=== PATIENT | female | born 1940 | race Caucasian/White ===

== ENCOUNTER 2017-01-14 17:52 | Inpatient (IN) ==
[2017-01-14 19:03] LABS: Basophils % 0.5 %; Eosinophils # 0.1 K/mcL (0.0-0.6); Eosinophils % 1.1 %; Hematocrit 30.6 % (35.3-44.9); Hemoglobin 10.6 g/dL (11.5-15.4); Immature Granulocytes % 0.2 % (0-4); Immature Platelets 3.8 % (1.1-6.1); Lymphocytes # 0.8 K/mcL (0.6-4.6); Lymphocytes % 12.3 %; Mean Corpuscular HGB Conc 34.6 g/dL (31.6-35.5); Mean Corpuscular Hemoglobin 32.3 pg (28.0-33.3); Mean Corpuscular Volume 93.3 fL (83.0-100.0); Mean Platelet Volume 9.7 fL (9.4-12.4); Monocytes # 0.6 K/mcL (0.0-1.3); Monocytes % 8.8 %; Neutrophils # 4.9 K/mcL (1.6-8.9); Platelet Count 166 K/mcL (140-400); Red Blood Count 3.28 M/mcL (3.82-4.97); Red Cell Distribution Width 14.3 % (11.5-14.5); Segmented Neutrophils % 77.1 %
[2017-01-14 19:07] LABS: Prothrombin Time 10.4 Seconds (9.4-12.1)
[2017-01-14 19:10] LABS: Activated Partial Thrombo Time 27.7 Seconds (26.0-36.0)
[2017-01-14 19:14] LABS: Calcium 10.2 mg/dL (8.6-10.8); Potassium 5.1 mEq/L (3.5-4.5)
--- NOTE | 2017-01-14 19:20 | Emergency Department Note ---
Disposition Clinical Impression: Community acquired pneumonia, Acute respiratory distress, ESRD on dialysis Congestive heart failure Qualifiers: Congestive heart failure type: unspecified congestive heart failure type Congestive heart failure chronicity: unspecified congestive heart failure chronicity Qualified Code(s): I50.9 - Heart failure, unspecified Disposition: Admitted As Inpatient Condition: Serious Referrals: Vladimir Chaidez MD [Primary Care Provider] - Forms: ED Satisfaction Letter Time of Disposition: 20:29 SOB HPI - General Chief Complaint: ED Shortness of Breath/Dyspnea Stated Complaint: LAKISHA x 6 days Time Seen by Provider: 01/14/17 18:28 Source: patient, family Mode of arrival: ambulatory Limitations: no limitations Nursing Notes Reviewed: Yes Vital Signs Reviewed: Yes - History of Present Illness Ms. Carmona is a 76 year old female that present for shortness of breath x 6 days. She notes increased cough and sputum production. She notes shortness of breath that is worse with laying down and exertion, better when sitting up. She states lack of sleep secondary to cough and difficulty breathing. She notes clear or yellow sputum production, varying in amount. Denies fever, nausea, vomiting, diarrhea. Patient reports history of nephrectomy and ESRD resquiring dialysis (MWF, seen by Dr. Gilbert). Patient is scheduled to see Dr. Garcia in the near future for concerns of CHF. Bilateral lower extremity swelling, which patient states is chronic. Patient does report history of DVT in left leg approx 5 years ago. - Related Data Home Medications Medication Instructions Recorded Confirmed Albuterol Sulfate [Ventolin Hfa] 2 puff IH Q4H PRN 10/12/16 10/12/16 Allopurinol [Zyloprim] 100 mg PO DAILY 10/12/16 10/12/16 Amlodipine [Norvasc] 5 mg PO DAILY 10/12/16 10/12/16 Aspirin 81 mg PO DAILY 10/12/16 10/12/16 Atorvastatin [Lipitor] 40 mg PO HS 10/12/16 10/12/16 Budesonide/Formoterol 160/4.5 2 puff IH BIDR 10/12/16 10/12/16 [Symbicort 160/4.5] Calcium Acetate [Phos-LO] 1,334 mg PO TIDWM 10/12/16 10/12/16 Cholecalciferol (Vitamin D3) 2,000 unit PO DAILY 10/12/16 10/12/16 [Vitamin D] Furosemide [Lasix] 20 mg PO QPM 10/12/16 10/12/16 Furosemide [Lasix] 40 mg PO QAM 10/12/16 10/12/16 Levothyroxine Sodium [Levo-T] 75 mcg PO DAILY 10/12/16 10/12/16 Lisinopril [Zestril] 10 mg PO BID 10/12/16 10/12/16 Metoprolol XL (24 HR) Succ [Toprol 25 mg PO BID 10/12/16 10/12/16 XL] Pregabalin [Lyrica] 50 mg PO BID 10/12/16 10/12/16 TraZODone 50 - 100 mg PO HS PRN 10/12/16 10/12/16 Allergies Allergy/AdvReac Type Severity Reaction Status Date / Time codeine AdvReac Rash Verified 01/14/17 18:20 gabapentin AdvReac Itching Verified 01/14/17 18:20 All systems ED: reviewed and negative except as stated. Constitutional: Denies: fever, chills Eyes: Denies: vision change ENT ED: Denies: hearing loss Cardiovascular: Denies: chest pain Respiratory: Reports: cough, dyspnea, sputum production. Denies: hemoptysis Gastrointestinal: Denies: abdominal pain, nausea, vomiting, diarrhea Genitourinary: Reports: other (oliguria) Musculoskeletal: Denies: back pain Integumentary: Denies: rash Neurological: Denies: weakness, numbness, confusion Psychiatric: Denies: anxiety Endocrine: Reports: fatigue Past Medical History - Past Medical History Attestation: Yes The following information was validated with the patient. Source: patient, obtained from family Medical history: Reports: asthma, COPD, DVT, dialysis, hyperlipidemia, hypertension, renal disease Surgical history: Reports: orthopedic, other, other Psychiatric history: Reports: no psych history - Social History Smoking Status: Never smoker Smokeless Tobacco Status: No Alcohol use: Reports: none Drug use: Reports: none Physical Exam - General Limitations: no limitations General appearance: alert, in no apparent distress - Head Head exam: atraumatic, normocephalic - Eye Eye exam: Present: normal appearance, EOMI - ENT ENT exam: normal exam, mucous membranes moist - Neck Neck exam: Present: normal inspection, full ROM, trachea midline - Chest Chest inspection: Present: normal inspection, symmetric chest wall rise. Absent : tenderness - Respiratory Respiratory exam: Present: normal lung sounds bilaterally, other (rhonchi bilaterally) - Cardiovascular Cardiovascular exam: Present: regular rate, +S1, +S2. Absent: systolic murmur, diastolic murmur - Abdominal Exam Abdominal exam: Present: soft, Non-Tender. Absent: tenderness, distention, guarding, rebound, rigidity - Extremities Exam Extremities exam: Present: other (edema noted bilaterally R>L, no pain on palpation.). Absent: tenderness, calf tenderness - Neurological Exam Neurological exam: Present: alert, oriented X3 - Psychiatric Psychiatric exam: Present: normal affect, normal mood - Skin Skin exam: Present: warm, dry, intact Course Vital Signs Temperature 98.1 F 01/14/17 18:15 Pulse Rate 83 01/14/17 18:15 Respiratory Rate 22 01/14/17 18:15 Blood Pressure 164/84 01/14/17 18:15 O2 Sat by Pulse Oximetry 87 01/14/17 18:15 Temperature 98.1 F 01/14/17 18:15 Pulse Rate 76 01/14/17 19:50 Respiratory Rate 20 01/14/17 19:50 Blood Pressure 169/90 01/14/17 19:50 O2 Sat by Pulse Oximetry 90 01/14/17 19:50 Oxygen Delivery Oxygen Delivery Nasal Cannula Shortness of Breath/Dyspnea - [facility] Narrative Medical decision making narrative: Patient presents an acute restaurant distressful hypoxia requiring 2 L of oxygen. This is concerning as patient reports no use of home oxygen. Chest x- ray reveals cardiomegaly and infiltrate suggestive pneumonia. Further concern as patient frequently in a healthcare setting due to dialysis 3 days a week. Without oxygen patients saturation drops into the 70s. Will discuss with hospitalist as patient will admission for IV antibiotic treatment and supplemental oxygen. - Differential Diagnosis Likely: acute exacerbation of chronic obstructive airways disease, congestive heart failure, pneumonia - Medical Records Medical records reviewed: Yes I reviewed the patient's medical records. - Lab Data Lab results reviewed: Yes I reviewed the patient's lab results. Result diagrams: 01/14/17 18:56 01/14/17 18:56 Lab Results 01/14/17 01/14/17 01/14/17 Range/Units 18:56 18:56 18:56 WBC 6.3 (4.3-11.1) K/mcL RBC 3.28 L (3.82-4.97) M/mcL Hgb 10.6 L (11.5-15.4) g/dL Hct 30.6 L (35.3-44.9) % MCV 93.3 (83.0-100.0) fL MCH 32.3 (28.0-33.3) pg MCHC 34.6 (31.6-35.5) g/dL RDW 14.3 (11.5-14.5) % Plt Count 166 (140-400) K/mcL MPV 9.7 (9.4-12.4) fL Immature Gran % 0.2 (0-4) % Seg Neutrophils % 77.1 % Lymphocytes % 12.3 % Monocytes % 8.8 % Eosinophils % 1.1 % Basophils % 0.5 % Neutrophils # 4.9 (1.6-8.9) K/mcL Lymphocytes # 0.8 (0.6-4.6) K/mcL Monocytes # 0.6 (0.0-1.3) K/mcL Eosinophils # 0.1 (0.0-0.6) K/mcL Basophils # 0.0 (0.0-0.2) K/mcL Immature Plt Fraction 3.8 (1.1-6.1) % PT 10.4 (9.4-12.1) Seconds INR 1.0 APTT 27.7 (26.0-36.0) Seconds Sodium 138 (136-145) mEq/L Potassium 5.1 H (3.5-4.5) mEq/L Chloride 100 (98-109) mEq/L Carbon Dioxide 25 (19-29) mEq/L BUN 18 (7-20) mg/dL Creatinine 3.84 H (0.57-1.11) mg/dL Est GFR ( Amer) 14 L (> 60) Est GFR (Non-Af Amer) 11 L (> 60) BUN/Creatinine Ratio 5 L (6-26) Glucose 91 (70-99) mg/dL Calculated Osmolality 287 (280-300) Calcium 10.2 (8.6-10.8) mg/dL Troponin I (0-0.03) ng/mL B-Natriuretic Peptide (0-100) pg/mL 01/14/17 01/14/17 Range/Units 18:56 18:56 WBC (4.3-11.1) K/mcL RBC (3.82-4.97) M/mcL Hgb (11.5-15.4) g/dL Hct (35.3-44.9) % MCV (83.0-100.0) fL MCH (28.0-33.3) pg MCHC (31.6-35.5) g/dL RDW (11.5-14.5) % Plt Count (140-400) K/mcL MPV (9.4-12.4) fL Immature Gran % (0-4) % Seg Neutrophils % % Lymphocytes % % Monocytes % % Eosinophils % % Basophils % % Neutrophils # (1.6-8.9) K/mcL Lymphocytes # (0.6-4.6) K/mcL Monocytes # (0.0-1.3) K/mcL Eosinophils # (0.0-0.6) K/mcL Basophils # (0.0-0.2) K/mcL Immature Plt Fraction (1.1-6.1) % PT (9.4-12.1) Seconds INR APTT (26.0-36.0) Seconds Sodium (136-145) mEq/L Potassium (3.5-4.5) mEq/L Chloride (98-109) mEq/L Carbon Dioxide (19-29) mEq/L BUN (7-20) mg/dL Creatinine (0.57-1.11) mg/dL Est GFR ( Amer) (> 60) Est GFR (Non-Af Amer) (> 60) BUN/Creatinine Ratio (6-26) Glucose (70-99) mg/dL Calculated Osmolality (280-300) Calcium (8.6-10.8) mg/dL Troponin I 0.02 (0-0.03) ng/mL B-Natriuretic Peptide 1464 H (0-100) pg/mL - Radiology Data Radiology results reviewed: Yes I reviewed the patient's radiology results. Chest X-Ray 01/14/17 18:23 IMPRESSION: Cardiomegaly with left lower lobe atelectasis or infiltrate. D/ / 01/14/2017 19:03:09 Kevyn Jackson MD / carla Interpreting Provider: Kevyn Jackson MD - EKG Data EKG attestation: Yes I reviewed and interpreted this EKG. EKG shows normal: Reports: sinus rhythm Rate: Reports: tachycardia [place]/QRS: Reports: left axis deviation Heart block present: Reports: 1st Degree When compared to previous EKG there are: previous EKG unavailable
--- NOTE | 2017-01-14 19:47 | Emergency Department Note ---
START Narrative - START START: I examined this patient and my medical decision-making was reviewed with the TIMERS INSPECTOR/PA/Advanced Practice Nurse/Resident Physician. I agree with the documented findings, disposition and treatment plan as described except to the extent set forth below. The patient's does have a cough productive of yellow sputum but no hemoptysis. Does have bilateral lower extremity swelling slightly worse on the right she states this is chronic for her. She does have end-stage renal disease and did have dialysis today. Minimally high potassium level. I do not see EKG findings of hyperkalemia. She does have EKG showed normal sinus rhythm with a rate of 81 and does have some nonspecific ST changes. The patient does have what appears to be an infiltrate on her chest x-ray and she will be she defer healthcare associated pneumonia with Zosyn and vancomycin and admitted to the hospital. 1947
[2017-01-14] MEDS ORDERED: Vancomycin 1,000 MG in D5% in Water 250 ML IVPB ONE ×2 (19:56→20:26)
[2017-01-14] MEDS ORDERED: Piperacillin/Tazobactam 4.5 GM in D5% in Water (Mini-Bag+) 100 ML IVPB ONE (19:56)
[2017-01-14] MEDS ORDERED: Naloxone 0.4 MG/ML INJ IVP PRN (23:15)
[2017-01-14] MEDS ORDERED: Albuterol 2.5 MG/3 ML NEBULIZER IH PRN (23:22)
--- NOTE | 2017-01-14 23:50 | Internal Med History&Physical ---
Date of Encounter: 01/15/17 Time of Encounter: 23:42 Assessment and Plan (1) Community acquired pneumonia Current visit: Yes Status: Acute 1 Patient has been experiencing a cough with brown sputum production increasing shortness of breath requiring oxygen orthopnea. Chest x-ray suggestive of pneumonia and leukocytosis. We will give Levaquin 2 obtain sputum culture 3 oxygen titrating maintaining SPO2 92% 4 bronchodilators (2) Acute respiratory distress Current visit: Yes Status: Acute 1 patient presented hypoxic with saturations in the 80s to 70s on room air. Improved with oxygen and will continue to titrate to maintain SPO2 greater than 92% 2 bronchodilators (3) COPD (chronic obstructive pulmonary disease) Current visit: Yes Status: Chronic 1 has history of COPD -no wheezing at this time does not appear to be exacerbation-we will continue oxygen titrated to maintain spo2 92% 2 bronchodilators Qualifiers: COPD type: unspecified COPD Qualified Code(s): J44.9 - Chronic obstructive pulmonary disease, unspecified (4) ESRD on dialysis Current visit: Yes Status: Acute 1 patient is on dialysis Tuesday she received dialysis today-we will consult nephrology for dialysis 2 renal diet 3 monitor intake and output daily weights 4 avoid nephrotoxins 5 really dosing of antibiotics (5) HTN (hypertension) Current visit: Yes Status: Acute 1 present to control we will continue with home medications goals maintain systolic less than 140 Qualifiers: Hypertension type: essential hypertension Qualified Code(s): I10 - Essential (primary) hypertension (6) DVT prophylaxis Current visit: Yes Status: Acute 1 heparin subcutaneous Internal Medicine - H&P: HPI Chief complaint: SOB Admitted From: Emergency Dept Plans for Post Hospital Care: Home History of present illness: Ms. Carmona is a 76 year old female past medical history of hypertension status post nephrectomy end-stage renal disease on dialysis Tuesday hypercholesterolemia COPD DVT left leg 5 years ago. Patient receiving increasing shortness breath or the past 6 days. Sugars of breath is worse upon exertion and when she is lying down. She has not been able to sleep at night. She also has increased cough with sputum production-brown sputum production. She denies any recent sick contacts fevers chills nausea vomiting weight gain of weight loss or diarrhea. She has chronic lower extremity swelling. Last echo was 12/16/16 EF of 60% mild diastolic dysfunction. She is scheduled to see Drs. Alonzo in the near future for concerns of CHF. Patient presented to the ER above complaints. She was in respiratory distress and hypoxia S. She was in the 80s requiring 2 L of oxygen which did improve her saturations to the 90s. She does not use home oxygen. Chest x-ray revealed cardiomegaly with infiltrates suggestive of pneumonia. Oxygen was removed to patient's saturations would drop into the 70s. Lab work did not reveal any leukocytosis potassium is 5.1 creatinine 3.8. BNP 1464 troponin 0.0 to. She was given IV antibiotics and has been admitted for further workup and evaluation. Presently patient sitting signed bed does appear to be in any respiratory distress. She denies any shortness breath or chest pain at this time mental sounds are clear diminished in the bases. She has a moist cough. Heart sounds S1 and S2 with no rubs gallops murmurs or clicks noted. Presently she is hemodynamically stable on 2 L nasal cannula. I reviewed this case with Dr. Jimenez who agrees with plan Past Med Surg Social Fam HX - Past Medical History Medical history: asthma, COPD, DVT, dialysis, hyperlipidemia, hypertension, renal disease Psychiatric history: no psych history - Past Surgical History Surgical History: other - Social History Smoking Status: Former smoker Smokeless Tobacco Status: No Alcohol use: none Drug use: none - Family History Mother Living Status: Age at : 70 Cause of : Colon cancer Hx Family Cardiac Disorders: No Hx Family Respiratory Disorders: No Hx Family Cancer: Yes (Colon) Hx Family GI Disorders: No Hx Family Genitourinary Disorders: No Hx Family Endocrine Disorder: Yes (Borderline DM) Hx Family Musculoskeletal Disorders: No Hx Family Neuromuscular Disorders: No Hx Family Neurologic Disorders: No Hx Family HEENT Disorders: No Hx Family Autoimmune Disorders: No Hx Family Reproductive Disorders: No Hx Family Psychosocial Disorders: No Hx Family Medical Disorders: No Internal Medicine - H&P: Meds Albuterol Sulfate [Ventolin Hfa] 2 puff IH Q4H PRN 10/12/16 [History] Allopurinol [Zyloprim] 100 mg PO DAILY 10/12/16 [History] Amlodipine [Norvasc] 5 mg PO 1-2XD 10/12/16 [History] Aspirin 81 mg PO DAILY 10/12/16 [History] Atorvastatin [Lipitor] 40 mg PO HS 10/12/16 [History] Budesonide/Formoterol 160/4.5 [Symbicort 160/4.5] 2 puff IH BIDR 10/12/16 [ History] Calcium Acetate [Phos-LO] 1,334 mg PO TIDWM 10/12/16 [History] Cholecalciferol (Vitamin D3) [Vitamin D] 2,000 unit PO DAILY 10/12/16 [History] Furosemide [Lasix] 20 mg PO QPM 10/12/16 [History] Furosemide [Lasix] 40 mg PO QAM 10/12/16 [History] Pregabalin [Lyrica] 50 mg PO BID 10/12/16 [History] TraZODone 50 - 100 mg PO HS PRN 10/12/16 [History] Ipratropium Hannacroix 2 spray NS BID 01/14/17 [History] Levothyroxine [Synthroid] 25 mcg PO DAILY 01/14/17 [History] Losartan Potassium [Cozaar] 50 mg PO DAILY 01/14/17 [History] Metoprolol XL (24 HR) Succ [Toprol XL] 50 mg PO DAILY 01/14/17 [History] Multivitamin [Multi-Day Vitamins] 1 tab PO DAILY 01/14/17 [History] Promethazine/Codeine [Phenergan/Codeine] 5 ml PO Q6HR PRN 01/14/17 [History] Allergies codeine Adverse Reaction (Verified 01/14/17 18:20) Rash gabapentin Adverse Reaction (Verified 01/14/17 18:20) Itching All Systems PM: A 10-system review of systems was performed and is negative for pertinent findings except as documented above in the HPI. - Constitutional Constitutional: fatigue - Cardiovascular Cardiovascular ROS IM: dyspnea, edema, orthopnea - Respiratory Respiratory: cough, dyspnea on exertion, change in phlegm color - Gastrointestinal Gastrointestinal: no abdominal pain, no diarrhea, no hematemesis, no hematochezia, no melena, no nausea, no vomiting - Genitourinary Genitourinary: no change in urinary stream, no dysuria, no flank pain, no hematuria - Musculoskeletal Musculoskeletal ROS IM: no numbness, no tingling - Integumentary Integumentary IM: no rash, no unusual bruising - Neurological Neurological ROS: no confusion, no convulsions, no focal weakness, no numbness, no tingling, no tremor(s) - Hematologic/Lymphatic Hematologic/Lymphatic: no easy bruising - Constitutional Vitals: Temp Pulse Resp BP Pulse Ox 97.8 F 73 18 159/83 93 01/14/17 22:25 01/14/17 22:25 01/14/17 22:25 01/14/17 22:25 01/14/17 22:25 General appearance: Present: A&O X 3, answers questions appropriately - Head Head exam: Present: atraumatic, normocephalic - Neck Neck exam general surgery: Present: supple, trachea midline. Absent: lymphadenopathy - Respiratory Respiratory exam: Present: decreased breath sounds, CTAB. Absent: accessory muscle use, rales, rhonchi, wheezes - Cardiovascular Cardiovascular exam: Present: RRR, +S1, +S2. Absent: diastolic murmur, gallop, rubs, systolic murmur - GI/Abdominal GI/Abdominal exam: Present: normal bowel sounds, soft, no peritoneal signs. Absent: distended, tenderness - Extremities Exam Extremities exam: Present: pedal edema, warm, radial pulses palpable and symetrical. Absent: calf tenderness, cyanotic - Neurological Exam Neurological exam: Present: CN II-XII intact, oriented X3, no focal deficits. Absent: pronater drift, facial droop, speech deficit - Skin Skin exam: Present: dry, intact Internal Med - H&P Results - Labs CBC & Chem 7: 01/14/17 18:56 01/14/17 18:56 - Diagnostic Studies Chest x-ray Additional comments: Chest X-Ray 01/14/17 18:23 IMPRESSION: Cardiomegaly with left lower lobe atelectasis or infiltrate. D/ / 01/14/2017 19:03:09 Kevyn Jackson MD / carla Interpreting Provider: Kevyn Jackson MD
[2017-01-14] MEDS ORDERED: Acetaminophen 325 MG TABLET PO PRN (23:55)
[2017-01-15] MEDS: Furosemide 20 MG TABLET PO SCH ×2 (01:14→17:05)
[2017-01-15] MEDS: Ipratropium/Albuterol Neb 3 ML IH SCH ×4 (04:28→22:42)
[2017-01-15] MEDS: Levothyroxine 25 MCG TABLET PO SCH (06:26)
[2017-01-15] MEDS: *HR* Heparin 5,000 UNIT/ML VIAL SQ SCH ×2 (06:26→17:05)
[2017-01-15 06:55] LABS: Basophils % 0.6 %; Eosinophils # 0.1 K/mcL (0.0-0.6); Eosinophils % 1.6 %; Hematocrit 27.2 % (35.3-44.9); Hemoglobin 9.1 g/dL (11.5-15.4); Immature Granulocytes % 0.2 % (0-4); Lymphocytes # 1.4 K/mcL (0.6-4.6); Lymphocytes % 27.1 %; Mean Corpuscular HGB Conc 33.5 g/dL (31.6-35.5); Mean Corpuscular Hemoglobin 31.6 pg (28.0-33.3); Mean Corpuscular Volume 94.4 fL (83.0-100.0); Mean Platelet Volume 10.6 fL (9.4-12.4); Monocytes # 0.6 K/mcL (0.0-1.3); Monocytes % 11.3 %; Platelet Count 139 K/mcL (140-400); Red Blood Count 2.88 M/mcL (3.82-4.97); Red Cell Distribution Width 14.4 % (11.5-14.5); Segmented Neutrophils % 59.2 %
[2017-01-15 06:56] LABS: Calcium 9.5 mg/dL (8.6-10.8); Potassium 4.7 mEq/L (3.5-4.5)
[2017-01-15] MEDS: Aspirin 81 MG TAB.CHEW PO SCH (07:51)
[2017-01-15] MEDS: Pregabalin 50 MG CAPSULE PO SCH ×2 (07:51→20:22)
[2017-01-15] MEDS: Multivit/Ca/Min/Fe/FA 1 TAB TABLET PO SCH (07:51)
[2017-01-15] MEDS: Cholecalciferol (D-3) 1,000 UNIT TABLET PO SCH (07:51)
[2017-01-15] MEDS: Calcium Acetate 667 MG CAPSULE PO SCH ×3 (07:51→17:05)
[2017-01-15] MEDS: Metoprolol XL (24 HR) Succ 50 MG TAB.ER.24H PO SCH (07:51)
[2017-01-15] MEDS: Furosemide 40 MG TABLET PO SCH (07:51)
[2017-01-15] MEDS ORDERED: amLODIPine 5 MG TABLET PO SCH (09:00)
[2017-01-15] MEDS: Budesonide/Formoterol 160/4.5 MDI IH SCH ×2 (11:53→22:42)
[2017-01-15] MEDS ORDERED: amLODIPine 5 MG TABLET PO ONE (13:04)
--- NOTE | 2017-01-15 13:05 | Internal Med Progress Note ---
Date of Encounter: 01/15/17 Time of Encounter: 11:20 - Assessment and plan (1) Community acquired pneumonia Current Visit: Yes Status: Acute Assessment and plan: Clinically improving Continue IV antibiotics Follow-up blood cultures and sputum cultures O2 supplementation as needed Continue to monitor respiratory status (2) Acute respiratory distress Current Visit: Yes Status: Acute Assessment and plan: Likely secondary to community-acquired pneumonia We will continue management as listed above (3) ESRD on dialysis Current Visit: Yes Status: Acute Assessment and plan: Nephrology consultation requested Patient to continue hemodialysis as per her outpatient scheduled sessions on Tuesday and Tuesday (4) COPD (chronic obstructive pulmonary disease) Current Visit: Yes Status: Chronic Assessment and plan: Not in acute exacerbation We will continue bronchodilator support O2 supplementation as needed Qualifiers: COPD type: unspecified COPD Qualified Code(s): J44.9 - Chronic obstructive pulmonary disease, unspecified (5) HTN (hypertension) Current Visit: Yes Status: Acute Assessment and plan: Noted to be hypertensive Will increase amlodipine to 10 mg by mouth daily Continue metoprolol Added hydralazine 10 mg IV q6h prn SBP>160 Will closely monitor BP Qualifiers: Hypertension type: essential hypertension Qualified Code(s): I10 - Essential (primary) hypertension (6) DVT prophylaxis Current Visit: Yes Status: Acute Assessment and plan: Heparin subcutaneous - Subjective Interval history: Patient seen and examined at bedside, resting comfortably in bed. Reports of mild improvement in her respiratory status and cough. Reports of finishing her hemodialysis session yesterday prior to her hospitalization. - Constitutional Vitals: Temp Pulse Resp BP Pulse Ox 98.3 F 71 13 164/68 93 01/15/17 12:02 01/15/17 12:02 01/15/17 12:02 01/15/17 12:02 01/15/17 12:02 General appearance: Present: A&O X 3, no acute distress, answers questions appropriately - Head Head exam: Present: atraumatic, normocephalic - Eye Eye exam: Present: conjuntiva pink, sclera anicteric - Respiratory Respiratory exam: Absent: respiratory distress, wheezes Additional comments: Decreased breath sounds on bilateral lower bases - Cardiovascular Cardiovascular exam: Present: RRR, +S1, +S2. Absent: diastolic murmur, gallop, rubs, systolic murmur - GI/Abdominal GI/Abdominal exam: Present: normal bowel sounds, soft, no peritoneal signs. Absent: distended, tenderness - Extremities Exam Extremities exam: Present: warm, radial pulses palpable and symetrical. Absent : calf tenderness Additional comments: Bilateral lower extremity edema - Neurological Exam Neurological exam: Present: alert, oriented X3 - Psychiatric Psychiatric exam: Present: normal affect, normal mood Internal Medicine: Result - Labs CBC & Chem 7: 01/15/17 05:51 01/15/17 05:51 Labs: Short CBC 01/15/17 Range/Units 05:51 WBC 5.1 (4.3-11.1) K/mcL Hgb 9.1 L D (11.5-15.4) g/dL Hct 27.2 L (35.3-44.9) % Plt Count 139 L (140-400) K/mcL Neutrophils # 3.0 (1.6-8.9) K/mcL BMP 01/15/17 05:51 Sodium 136 Potassium 4.7 H Chloride 101 Carbon Dioxide 28 BUN 22 H Creatinine 4.66 H Glucose 103 H Calcium 9.5 - ABG Interpretation ABG results: PT/INR, D-dimer PT 10.4 Seconds (9.4-12.1) 01/14/17 18:56 Consult Discharge Plan - Plan Referrals: Vladimir Chaidez MD [Primary Care Provider] -
[2017-01-15] MEDS ORDERED: Levofloxacin 500 MG/100 ML 500 MG/100 ML BAG IVPB SCH (18:00)
[2017-01-15] MEDS ORDERED: Furosemide 20 MG TABLET PO SCH (23:19)
[2017-01-16] MEDS: Ipratropium/Albuterol Neb 3 ML IH SCH ×4 (04:18→22:24)
[2017-01-16] MEDS: *HR* Heparin 5,000 UNIT/ML VIAL SQ SCH ×2 (05:07→17:23)
[2017-01-16] MEDS: Levothyroxine 25 MCG TABLET PO SCH (05:07)
[2017-01-16 07:34] LABS: Basophils % 0.7 %; Eosinophils # 0.1 K/mcL (0.0-0.6); Eosinophils % 1.4 %; Hematocrit 25.8 % (35.3-44.9); Hemoglobin 8.8 g/dL (11.5-15.4); Lymphocytes # 0.9 K/mcL (0.6-4.6); Lymphocytes % 21.8 %; Mean Corpuscular HGB Conc 34.1 g/dL (31.6-35.5); Mean Corpuscular Volume 96.6 fL (83.0-100.0); Mean Platelet Volume 10.5 fL (9.4-12.4); Monocytes # 0.5 K/mcL (0.0-1.3); Monocytes % 11.1 %; Neutrophils # 2.8 K/mcL (1.6-8.9); Platelet Count 124 K/mcL (140-400); Red Blood Count 2.67 M/mcL (3.82-4.97); Red Cell Distribution Width 14.4 % (11.5-14.5)
[2017-01-16 07:49] LABS: Calcium 9.9 mg/dL (8.6-10.8); Phosphorous 5.1 mg/dL (2.3-4.7); Potassium 5.4 mEq/L (3.5-4.5)
[2017-01-16] MEDS: Aspirin 81 MG TAB.CHEW PO SCH (08:28)
[2017-01-16] MEDS: Pregabalin 50 MG CAPSULE PO SCH ×2 (08:28→22:07)
[2017-01-16] MEDS: Calcium Acetate 667 MG CAPSULE PO SCH ×3 (08:28→17:23)
[2017-01-16] MEDS: amLODIPine 5 MG TABLET PO SCH (08:28)
[2017-01-16] MEDS: Metoprolol XL (24 HR) Succ 50 MG TAB.ER.24H PO SCH (08:28)
[2017-01-16] MEDS: Cholecalciferol (D-3) 1,000 UNIT TABLET PO SCH (08:28)
[2017-01-16] MEDS: Furosemide 40 MG TABLET PO SCH (08:29)
[2017-01-16] MEDS: Multivit/Ca/Min/Fe/FA 1 TAB TABLET PO SCH (08:29)
--- NOTE | 2017-01-16 09:42 | Nephrology Consult Note ---
Date of Encounter: 01/16/17 Time of Encounter: 09:25 Assessment and Plan (1) ESRD on dialysis Current Visit: Yes Status: Acute HCAP on Levaquin. ESRD on HD, will dialyze tomorrow keeping [facility] schedule. History of Present Illness - Reason for Consult end stage renal disease - History of Present Illness Ms. Camrona is a 76 year old female with ESRD who dialyzes at [facility] on MWF, last dialysis on Tuesday. Other PMH-asthma, COPD, HTN, HLD and DVT. Ms. Carmona presented to ER with increasing shortness of breath for past six days , orthopnea and increasing cough with little sputum production, "somewhat brownish color."She denies fever, chills, chest pain, N/V or diarrhea. Has been seeing [facility] over past several months for ongoing respiratory issues and has upcoming [facility] appointment for continued SOB, orthopnea and increase in LE edema. She has also had extra UF to try to alleviate symptoms. Past Med Surg Social Fam HX - Past Medical History Medical history: asthma, COPD, DVT, dialysis, hyperlipidemia, hypertension, renal disease Psychiatric history: no psych history - Past Surgical History Surgical History: other - Social History Smoking Status: Former smoker Smokeless Tobacco Status: No Alcohol use: none Drug use: none - Family History Mother Living Status: Age at : 70 Cause of : Colon cancer Hx Family Cardiac Disorders: No Hx Family Respiratory Disorders: No Hx Family Cancer: Yes (Colon) Hx Family GI Disorders: No Hx Family Genitourinary Disorders: No Hx Family Endocrine Disorder: Yes (Borderline DM) Hx Family Musculoskeletal Disorders: No Hx Family Neuromuscular Disorders: No Hx Family Neurologic Disorders: No Hx Family HEENT Disorders: No Hx Family Autoimmune Disorders: No Hx Family Reproductive Disorders: No Hx Family Psychosocial Disorders: No Hx Family Medical Disorders: No Medications and Allergies Albuterol Sulfate [Ventolin Hfa] 2 puff IH Q4H PRN 10/12/16 [History] Allopurinol [Zyloprim] 100 mg PO DAILY 10/12/16 [History] Amlodipine [Norvasc] 5 mg PO 1-2XD 10/12/16 [History] Aspirin 81 mg PO DAILY 10/12/16 [History] Atorvastatin [Lipitor] 40 mg PO HS 10/12/16 [History] Budesonide/Formoterol 160/4.5 [Symbicort 160/4.5] 2 puff IH BIDR 10/12/16 [ History] Calcium Acetate [Phos-LO] 1,334 mg PO TIDWM 10/12/16 [History] Cholecalciferol (Vitamin D3) [Vitamin D] 2,000 unit PO DAILY 10/12/16 [History] Furosemide [Lasix] 20 mg PO QPM 10/12/16 [History] Furosemide [Lasix] 40 mg PO QAM 10/12/16 [History] Pregabalin [Lyrica] 50 mg PO BID 10/12/16 [History] TraZODone 50 - 100 mg PO HS PRN 10/12/16 [History] Ipratropium [place] 2 spray NS BID 01/14/17 [History] Levothyroxine [Synthroid] 25 mcg PO DAILY 01/14/17 [History] Losartan Potassium [Cozaar] 50 mg PO DAILY 01/14/17 [History] Metoprolol XL (24 HR) Succ [Toprol XL] 50 mg PO DAILY 01/14/17 [History] Multivitamin [Multi-Day Vitamins] 1 tab PO DAILY 01/14/17 [History] Promethazine/Codeine [Phenergan/Codeine] 5 ml PO Q6HR PRN 01/14/17 [History] Allergies codeine Adverse Reaction (Verified 01/14/17 18:20) Rash gabapentin Adverse Reaction (Verified 01/14/17 18:20) Itching Review of Systems All Systems: reviewed and no additional remarkable complaints except as stated Exam - Vital Signs Vital signs: Initial Vital Signs Temp Pulse Resp BP Pulse Ox 98.1 F 83 22 164/84 87 01/14/17 18:15 01/14/17 18:15 01/14/17 18:15 01/14/17 18:15 01/14/17 18:15 Vital Signs - Last 8 Hours Temp Pulse Resp BP Pulse Ox 01/16/17 08:37 91 01/16/17 08:18 98.8 F 81 14 152/69 91 01/16/17 04:45 98.5 F 89 18 145/77 91 01/16/17 04:18 16 92 Intake and Output 01/15/17 01/16/17 01/16/17 23:59 07:59 15:59 Intake Total 120 / 120 0 / 0 Balance 120 / 120 0 / 0 Intake: Oral 120 / 120 0 / 0 Other: Meal Dinner Percent of Meal Consumed 75% - General Appearance General appearance: well-developed, well-nourished, appears started age EENT: mucous membranes moist Neck: no JVD Additional Comments: dimished Left base Cardiology: edema, regular rate, regular rhythm Additional Comments: 1+ pitting LE edema which is actually much better than her noted usual of 2+ Gastrointestinal: normoactive bowel sounds, no tenderness, no guarding Integumentary: no rash, warm and dry Neurologic: alert and oriented x3 Psychiatric: mood/affect appropriate, cooperative Results - Lab Results 01/16/17 07:22 01/16/17 07:22 Most recent lab results Calcium 9.9 mg/dL (8.6-10.8) 01/16/17 07:22 Phosphorus 5.1 mg/dL (2.3-4.7) H 01/16/17 07:22 Magnesium 2.0 mg/dL (1.6-2.6) 01/16/17 07:22 Consult Discharge Plan - Plan Referrals: Vladimir Chaidez MD [Primary Care Provider] - (Web requested 01-15-17)
--- NOTE | 2017-01-16 09:54 | Internal Med Progress Note ---
Date of Encounter: 01/16/17 Time of Encounter: 09:05 - Assessment and plan (1) Community acquired pneumonia Current Visit: Yes Status: Acute Assessment and plan: Clinically improving Continue IV antibiotics Follow-up blood cultures and sputum cultures O2 supplementation as needed Continue to monitor respiratory status (2) Acute respiratory distress Current Visit: Yes Status: Acute Assessment and plan: Likely secondary to community-acquired pneumonia We will continue management as listed above (3) ESRD on dialysis Current Visit: Yes Status: Acute Assessment and plan: Nephrology consultation appreciated Patient to continue hemodialysis as per her outpatient scheduled sessions on Tuesday and Tuesday (4) COPD (chronic obstructive pulmonary disease) Current Visit: Yes Status: Chronic Assessment and plan: Not in acute exacerbation We will continue bronchodilator support O2 supplementation as needed Qualifiers: COPD type: unspecified COPD Qualified Code(s): J44.9 - Chronic obstructive pulmonary disease, unspecified (5) HTN (hypertension) Current Visit: Yes Status: Acute Assessment and plan: BP better controlled continue amlodipine 10 mg by mouth daily Continue metoprolol hydralazine 10 mg IV q6h prn SBP>160 Will closely monitor BP Qualifiers: Hypertension type: essential hypertension Qualified Code(s): I10 - Essential (primary) hypertension (6) DVT prophylaxis Current Visit: Yes Status: Acute Assessment and plan: Heparin subcutaneous - Subjective Interval history: Patient seen and examined at bedside, resting comfortably in bed. No overnight issues reported - Constitutional Vitals: Temp Pulse Resp BP Pulse Ox 98.8 F 81 14 152/69 91 01/16/17 08:18 01/16/17 08:18 01/16/17 08:18 01/16/17 08:18 01/16/17 08:37 General appearance: Present: A&O X 3, no acute distress, answers questions appropriately - Head Head exam: Present: atraumatic, normocephalic - Eye Eye exam: Present: conjuntiva pink, sclera anicteric - Respiratory Respiratory exam: Absent: respiratory distress, wheezes - Cardiovascular Cardiovascular exam: Present: RRR, +S1, +S2. Absent: diastolic murmur, gallop, rubs, systolic murmur - GI/Abdominal GI/Abdominal exam: Present: normal bowel sounds, soft, no peritoneal signs. Absent: distended, tenderness - Extremities Exam Extremities exam: Present: pedal edema, warm, radial pulses palpable and symetrical. Absent: calf tenderness, cyanotic - Neurological Exam Neurological exam: Present: alert, oriented X3 - Psychiatric Psychiatric exam: Present: normal affect, normal mood Internal Medicine: Result - Labs CBC & Chem 7: 01/16/17 07:22 01/16/17 07:22 Labs: Short CBC 01/16/17 Range/Units 07:22 WBC 4.3 (4.3-11.1) K/mcL Hgb 8.8 L (11.5-15.4) g/dL Hct 25.8 L (35.3-44.9) % Plt Count 124 L (140-400) K/mcL Neutrophils # 2.8 (1.6-8.9) K/mcL BMP 01/16/17 07:22 Sodium 134 L Potassium 5.4 H Chloride 99 Carbon Dioxide 23 BUN 45 H D Creatinine 7.23 H D Glucose 92 Calcium 9.9 - ABG Interpretation ABG results: PT/INR, D-dimer PT 10.4 Seconds (9.4-12.1) 01/14/17 18:56 Consult Discharge Plan - Plan Referrals: Vladimir Chaidez MD [Primary Care Provider] - (Web requested 01-15-17)
[2017-01-16] MEDS: Budesonide/Formoterol 160/4.5 MDI IH SCH ×2 (10:44→22:25)
[2017-01-16] MEDS: Furosemide 20 MG TABLET PO SCH (17:23)
[2017-01-17] MEDS: Ipratropium/Albuterol Neb 3 ML IH SCH ×2 (04:51→10:35)
[2017-01-17 05:22] LABS: Basophils % 0.9 %; Eosinophils # 0.1 K/mcL (0.0-0.6); Eosinophils % 4.4 %; Hemoglobin 8.7 g/dL (11.5-15.4); Immature Granulocytes % 0.6 % (0-4); Lymphocytes # 0.9 K/mcL (0.6-4.6); Lymphocytes % 29.1 %; Mean Corpuscular HGB Conc 33.5 g/dL (31.6-35.5); Mean Corpuscular Volume 95.6 fL (83.0-100.0); Mean Platelet Volume 9.9 fL (9.4-12.4); Monocytes # 0.3 K/mcL (0.0-1.3); Monocytes % 9.7 %; Neutrophils # 1.8 K/mcL (1.6-8.9); Platelet Count 122 K/mcL (140-400); Red Blood Count 2.72 M/mcL (3.82-4.97); Red Cell Distribution Width 14.6 % (11.5-14.5); Segmented Neutrophils % 55.3 %
[2017-01-17 05:38] LABS: Magnesium 2.3 mg/dL (1.6-2.6); Potassium 5.5 mEq/L (3.5-4.5)
[2017-01-17] MEDS: Levothyroxine 25 MCG TABLET PO SCH (05:55)
[2017-01-17] MEDS: *HR* Heparin 5,000 UNIT/ML VIAL SQ SCH (05:56)
[2017-01-17] MEDS: Cholecalciferol (D-3) 1,000 UNIT TABLET PO SCH (06:45)
[2017-01-17] MEDS: Pregabalin 50 MG CAPSULE PO SCH (06:45)
[2017-01-17] MEDS: Aspirin 81 MG TAB.CHEW PO SCH (06:45)
[2017-01-17] MEDS: Multivit/Ca/Min/Fe/FA 1 TAB TABLET PO SCH (06:45)
[2017-01-17] MEDS ORDERED: 0.9 % Sodium Chloride 250 ML IVC PRN (08:39)
--- NOTE | 2017-01-17 08:39 | Nephrology Progress Note ---
Date of Encounter: 01/17/17 Time of Encounter: 08:38 - Assessment and Plan (1) ESRD on dialysis Current Visit: Yes Status: Acute The patient will undergo her usual dialysis today. Hemoglobin is 8.7. She will be placed on Aranesp for her anemia. She continues on antibiotics for her pneumonia. (2) Community acquired pneumonia Current Visit: Yes Status: Acute (3) HTN (hypertension) Current Visit: Yes Status: Acute Qualifiers: Hypertension type: essential hypertension Qualified Code(s): I10 - Essential (primary) hypertension Subjective Interval history: Patient reports she is feeling better. She has less shortness of breath. She is scheduled for her usual dialysis today. Objective - Vital Signs Vital signs: Vital Signs Temp Pulse Resp BP Pulse Ox 01/17/17 08:28 98.3 F 70 16 107/75 95 01/17/17 05:07 97.5 F L 75 18 148/72 92 01/17/17 04:52 18 96 01/17/17 00:30 98.4 F 85 18 156/74 93 01/16/17 22:27 18 96 01/16/17 20:11 97.5 F L 79 18 169/75 94 01/16/17 16:30 18 93 01/16/17 15:55 97.7 F 74 13 155/64 93 01/16/17 13:32 98.0 F 78 14 152/69 97 01/16/17 10:44 18 92 Intake and Output 01/16/17 01/17/17 01/17/17 23:59 07:59 15:59 Intake Total 240 / 240 120 / 120 Balance 240 / 240 120 / 120 Intake: Oral 240 / 240 120 / 120 Other: Meal Dinner Percent of Meal Consumed 100% Weight 64.3 kg Patient Weight 01/17/17 23:59 Weight 64.3 kg - General Appearance Exam: Patient is alert and oriented. She is in no acute distress. Lungs demonstrate coarse breath sounds especially on the right. Heart regular rate and rhythm with a 2/6 ejection murmur. Abdomen was benign. There is mild lower extremity swelling. There is a functioning AV fistula in the left arm. - Lab 01/17/17 04:59 01/17/17 04:59 Most recent lab results Calcium 10.0 mg/dL (8.6-10.8) 01/17/17 04:59 Phosphorus 6.0 mg/dL (2.3-4.7) H 01/17/17 04:59 Magnesium 2.3 mg/dL (1.6-2.6) 01/17/17 04:59 Consult Discharge Plan - Plan Referrals: Vladimir Chaidez MD [Primary Care Provider] - (Web requested 01-15-17)
--- NOTE | 2017-01-17 08:54 | Electrocardiograph Report ---
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
[2017-01-17] MEDS: Calcium Acetate 667 MG CAPSULE PO SCH ×2 (09:40→14:18)
[2017-01-17] MEDS: Budesonide/Formoterol 160/4.5 MDI IH SCH (10:35)
--- NOTE | 2017-01-17 12:35 | Discharge Summary ---
Date of Encounter: 01/17/17 Time of Encounter: 10:45 - Discharge Diagnosis (1) Community acquired pneumonia Priority: Primary Status: Acute (2) Acute respiratory distress Priority: Primary Status: Resolved (3) ESRD on dialysis Priority: Secondary Status: Chronic (4) COPD (chronic obstructive pulmonary disease) Priority: Secondary Status: Chronic Qualifiers: COPD type: unspecified COPD Qualified Code(s): J44.9 - Chronic obstructive pulmonary disease, unspecified (5) HTN (hypertension) Priority: Secondary Status: Chronic Qualifiers: Hypertension type: essential hypertension Qualified Code(s): I10 - Essential (primary) hypertension (6) DVT prophylaxis Priority: Secondary Status: Acute - Discharge Medications Prescriptions: Levofloxacin [Levaquin] 250 mg PO Q48H #6 tablet Home Medications: Albuterol Sulfate [Ventolin Hfa] 2 puff IH Q4H PRN 10/12/16 [History] Allopurinol [Zyloprim] 100 mg PO DAILY 10/12/16 [History] Amlodipine [Norvasc] 5 mg PO 1-2XD 10/12/16 [History] Aspirin 81 mg PO DAILY 10/12/16 [History] Atorvastatin [Lipitor] 40 mg PO HS 10/12/16 [History] Budesonide/Formoterol 160/4.5 [Symbicort 160/4.5] 2 puff IH BIDR 10/12/16 [ History] Calcium Acetate [Phos-LO] 1,334 mg PO TIDWM 10/12/16 [History] Cholecalciferol (Vitamin D3) [Vitamin D3] 2,000 unit PO DAILY 10/12/16 [History] Furosemide [Lasix] 20 mg PO QPM 10/12/16 [History] Furosemide [Lasix] 40 mg PO QAM 10/12/16 [History] Pregabalin [Lyrica] 50 mg PO BID 10/12/16 [History] TraZODone 50 - 100 mg PO HS PRN 10/12/16 [History] Ipratropium [place] 2 spray NS BID 01/14/17 [History] Levothyroxine [Synthroid] 25 mcg PO DAILY 01/14/17 [History] Losartan Potassium [Cozaar] 50 mg PO DAILY 01/14/17 [History] Metoprolol XL (24 HR) Succ [Toprol Xl] 50 mg PO DAILY 01/14/17 [History] Multivitamin [Multi-Day Vitamins] 1 tab PO DAILY 01/14/17 [History] Promethazine/Codeine [Phenergan/Codeine] 5 ml PO Q6HR PRN 01/14/17 [History] Levofloxacin [Levaquin] 250 mg PO Q48H #6 tablet 01/17/17 [Rx] Allergies/Adverse Reactions: Allergies codeine Adverse Reaction (Verified 01/14/17 18:20) Rash gabapentin Adverse Reaction (Verified 01/14/17 18:20) Itching Date of admission: 01/15/17 00:15 Primary care physician: Vladimir Chaidez MD Consults: 01/17/17 08:45 Consult to Dialysis [CONS] ONCE Discharging clinician: Brittany Lewis Anticipated date of discharge: 01/17/17 - Patient Status Disposition: Home, Self-Care Condition: Good Functional capacity at discharge: independent ambulation Overall status at discharge: patient is back to baseline - Discharge Instructions Instructions: Levofloxacin (By mouth), Pneumonia (DC) Follow Up With: Vladimir Chaidez MD [Primary Care Provider] - 01/25/17 2:00 pm (Web requested 01-15-17 ) Additional Instructions: Please follow up with your primary care physician within one week after your discharge from the hospital. Please continue to take oral antibiotics as prescribed. The antibiotics have been prescribed as per your renal function. Please take a total of 7 doses. Please resume all your home medications as prescribed by your primary care physician. - Diet and Activity Activity: resume usual activities as tolerated Diet: low salt diet Hospital course: Ms. Carmona is a 76 year old female with PMH of ESRD on HD, COPD, HLD, HTN who was admitted for management of acute respiratory distress secondary to pneumonia. Patient was started on antibiotic therapy and O2 supplementation. She responded well to therapy with improvement in her respiratory status which is back to baseline, saturating well on room air. She was also seen by hand binder cutter and her outpatient schedule of HD was resumed. She is currently hemodynamically stable and will be discharged on home with follow up with PCP. She is to continue oral antibiotics. Her antibiotics have been renally dosed. Patient demonstrates understanding of her diagnosis and agree with the discharge care plan. - Time Spent with Patient Total time spent providing and/or coordinating discharge services: Greater than 30 minutes - Constitutional Vitals: Temp Pulse Resp BP Pulse Ox 98.3 F 70 16 107/75 95 01/17/17 08:28 01/17/17 08:28 01/17/17 10:36 01/17/17 08:28 01/17/17 10:36 General appearance: Present: A&O X 3, no acute distress, answers questions appropriately - Head Head exam: Present: atraumatic, normocephalic - Eye Eye exam: Present: normal appearance, conjuntiva pink, sclera anicteric - Respiratory Respiratory exam: Present: CTAB. Absent: accessory muscle use, rales, rhonchi, wheezes - Cardiovascular Cardiovascular exam: Present: RRR, +S1, +S2. Absent: diastolic murmur, gallop, rubs, systolic murmur - GI/Abdominal GI/Abdominal exam: Present: normal bowel sounds, soft, no peritoneal signs. Absent: distended, tenderness - Extremities Exam Extremities exam: Present: warm, radial pulses palpable and symetrical. Absent : calf tenderness Additional comments: bilateral LE edema - Neurological Exam Neurological exam: Present: alert, oriented X3 - Psychiatric Psychiatric exam: Present: normal affect, normal mood
[2017-01-17] MEDS: amLODIPine 5 MG TABLET PO SCH (14:19)
[2017-01-17] MEDS: Metoprolol XL (24 HR) Succ 50 MG TAB.ER.24H PO SCH (14:19)
[2017-01-17] MEDS: Furosemide 40 MG TABLET PO SCH (14:19)
[2017-01-17 14:29] LABS: Hepatitis B Surface Antibody 6.15 mIU/mL; Hepatitis B Surface Antigen Nonreactive (Nonreactive)
[2017-01-18 10:26] VITALS: BP 119/63
== END 2017-01-17 14:54 | disposition home or self-care (01) | DRG 193 ==
LOC: EMEROO 17:52 → 2ANU 17:52
PROVIDERS: ADMIT Nurse Practitioner Acute Care; ATTEND Internal Medicine

== ENCOUNTER 2017-03-11 15:24 | Inpatient (IN) ==
[2017-03-11] MEDS ORDERED: Ipratropium/Albuterol Neb 3 ML ONE (15:34)
[2017-03-11] MEDS ORDERED: methylPREDNISolone 125 MG/2 ML VIAL IVP ONE (15:40)
--- NOTE | 2017-03-11 15:54 | Emergency Department Note ---
Disposition Clinical Impression: Acute exacerbation of chronic obstructive pulmonary disease (COPD), Hypoxia Headache Qualifiers: Headache type: unspecified Headache chronicity pattern: acute headache Intractability: intractable Qualified Code(s): R51 - Headache Disposition: Admitted As Inpatient Referrals: Vladimir Chaidez MD [Primary Care Provider] - Forms: ED Satisfaction Letter SOB HPI - General Chief Complaint: ED Shortness of Breath/Dyspnea Stated Complaint: LAKISHA Time Seen by Provider: 03/11/17 15:34 Source: patient, family Limitations: no limitations Nursing Notes Reviewed: Yes Vital Signs Reviewed: Yes - History of Present Illness Mrs. Carmona, a 76yo female, presents from home by POV with concerns regarding headache and dyspnea. Headache onset yesterday described as gradual in onset and progressive. Located bilateral temples described as a drilling- like sensation as well as some Cipro pain extending down her neck and up her scalp and a midline distribution along the parietal bones toward the frontal bone. No confusion, changes in vision, numbness, tingling, weakness. Patient had abrupt onset dyspnea with nausea and dry heaving this morning after her dialysis session. No cough, fever, chills. Patient's notes that patient has a history of left-sided collapsed lung. On further questioning, this appears to be an effusion for which she has had her brand leader, Dr. Phillips, perform thoracocentesis. She has never had a chest tube. PMH: End-stage renal disease on dialysis Tuesday, Tuesday, Tuesday-she did receive a full session this morning. Hypertension, hyperlipidemia, COPD [no home O2 use]. No history of AL or ACS or diabetes. ROS: Positive: Headache, nausea, dry heaving, dyspnea Negative: Fever, chills, chest pains, palpitations, abdominal pains, back pains , numbness, tingling, weakness, changes in vision, confusion. - Related Data Home Medications Medication Instructions Recorded Confirmed Albuterol Sulfate [Ventolin Hfa] 2 puff IH Q4H PRN 10/12/16 03/11/17 Allopurinol [Zyloprim] 100 mg PO DAILY 10/12/16 03/11/17 Aspirin 81 mg PO DAILY 10/12/16 03/11/17 Atorvastatin [Lipitor] 40 mg PO HS 10/12/16 03/11/17 Budesonide/Formoterol 160/4.5 2 puff IH BIDR 10/12/16 03/11/17 [Symbicort 160/4.5] Cholecalciferol (Vitamin D3) 2,000 unit PO DAILY 10/12/16 03/11/17 [Vitamin D3] Furosemide [Lasix] 20 mg PO QPM 10/12/16 03/11/17 Furosemide [Lasix] 40 mg PO QAM 10/12/16 03/11/17 Pregabalin [Lyrica] 50 mg PO BID PRN 10/12/16 03/11/17 amLODIPine [Norvasc] 5 mg PO 1-2XD 10/12/16 03/11/17 Ipratropium [place] 2 spray NS BID 01/14/17 03/11/17 Levothyroxine [Synthroid] 25 mcg PO DAILY 01/14/17 03/11/17 Losartan Potassium [Cozaar] 50 mg PO DAILY 01/14/17 03/11/17 Metoprolol XL (24 HR) Succ [Toprol 50 mg PO DAILY 01/14/17 03/11/17 Xl] Multivitamin [Multi-Day Vitamins] 1 tab PO DAILY 01/14/17 03/11/17 Acetylcysteine 600 mg PO TID 03/11/17 03/11/17 [S-Dvdwho-h-Cysteine] HYDROcodone/Acet 5/325 mg [[place] 1 tab PO TID PRN 03/11/17 03/11/17 5-325 mg] Lisinopril [Zestril] 10 mg PO BID 03/11/17 03/11/17 Loratadine [Claritin] 10 mg PO DAILY 03/11/17 03/11/17 Sevelamer [Renvela] 1,600 mg PO TIDWM 03/11/17 03/11/17 Tizanidine HCl 4 mg PO TID PRN 03/11/17 03/11/17 Allergies Allergy/AdvReac Type Severity Reaction Status Date / Time codeine AdvReac Rash Verified 01/14/17 18:20 gabapentin AdvReac Itching Verified 01/14/17 18:20 All systems ED: reviewed and negative except as stated. Past Medical History - Past Medical History Medical history: Reports: asthma, COPD, DVT, dialysis, hyperlipidemia, hypertension, osteoporosis, renal disease Surgical history: Reports: other Psychiatric history: Reports: no psych history - Social History Smoking Status: Former smoker Smokeless Tobacco Status: No Alcohol use: Reports: none Drug use: Reports: none Physical Exam Vital Signs Reviewed General: Patient is alert, oriented, and in no acute distress. HEENT: No facial asymmetry. Head is normocephalic and atraumatic. PERRLA. Oral mucosa moist. Trachea midline. Cardiovascular: Heart regular rate and rhythm without clicks, rubs, gallops, or murmurs. No JVD. PMI nondisplaced. Bilateral radial posterior tibial pulses 2 /4. 2+ pitting pedal edema bilaterally. Respiratory: Symmetric chest rise with poor respiratory effort. Prolonged expiratory phase. Bilateral breath sounds are clear without wheezing, crackles , or rhonchi. Abdomen: Bowel sounds present normoactive x-4 quadrants. Abdomen is soft, nondistended, and nontender. No organomegaly noted. Psych: Patient's affect is appropriate for situation. - General Limitations: no limitations General appearance: in distress Course Course Narrative: Patient arrives saturating 87% on 4 L nasal cannula. She uses no oxygen at home. Bedside ultrasound shows lung sliding in the left anterior midline and lateral chest wall in the upper, middle, and lower lobes. X-ray is not concerning for pneumonia or other acute pulmonary process per my reading. Chest X-Ray 03/11/17 15:40 IMPRESSION: 1. Cardiomegaly without failure. 2. Right middle lobe atelectasis, with similar findings on prior CT of 02/12/2017. 3. Left lower lobe atelectasis may be slightly improved compared to the prior CT. D/ : / 03/11/2017 16:12:03 Binh Baker MD / monae Interpreting Provider: Binh Baker MD Lab work is returning. Patient is anemic with hemoglobin 10.6. This is better than her baseline of 8-9. Patient has elevated creatinine of 2.94. She is end- stage renal disease after dialysis today; this is better than her baseline. Patient notes that she still has a headache after initial 4 mg of morphine. We will re-dose and reassess. At this time, patient's primary concern is her headache. She is saturating 97% on 4 L nasal cannula after triple dose of duonebs. CT head unremarkable. Patient's pain poorly controlled with morphine. It did improve after a migraine cocktail of Reglan, Toradol, and Benadryl. Patient ambulated in the emergency department on room air; she became hypoxic and nauseous with pulse ox readings 70%. She was given 4 L nasal cannula and jumped back up to 96%. Discussed admission with the patient for which she agrees. Spoke with the admitting hospitalist, Dr. Jimenez, who agrees to accept the patient. He has no additional questions or concerns at this time. Vital Signs Temperature 98.1 F 03/11/17 15:25 Pulse Rate 70 03/11/17 15:25 Respiratory Rate 24 03/11/17 15:25 Blood Pressure 0/0 03/11/17 15:25 O2 Sat by Pulse Oximetry 75 03/11/17 15:25 Temperature 98.1 F 03/11/17 15:25 Pulse Rate 71 03/11/17 20:22 Respiratory Rate 16 03/11/17 20:22 Blood Pressure 146/70 03/11/17 20:22 O2 Sat by Pulse Oximetry 99 03/11/17 20:22 Oxygen Delivery Oxygen Delivery Nasal Cannula Shortness of Breath/Dyspnea - Lab Data Result diagrams: 03/11/17 15:42 03/11/17 15:42 Lab Results 03/11/17 03/11/17 03/11/17 Range/Units 15:42 15:42 15:42 WBC 3.8 L (4.3-11.1) K/mcL RBC 3.24 L (3.82-4.97) M/mcL Hgb 10.6 L (11.5-15.4) g/dL Hct 31.0 L (35.3-44.9) % MCV 95.7 (83.0-100.0) fL MCH 32.7 (28.0-33.3) pg MCHC 34.2 (31.6-35.5) g/dL RDW 14.7 H (11.5-14.5) % Plt Count 137 L (140-400) K/mcL MPV 10.2 (9.4-12.4) fL Immature Gran % 0.3 (0-4) % Seg Neutrophils % 77.1 % Lymphocytes % 15.4 % Monocytes % 6.4 % Eosinophils % 0.3 % Basophils % 0.5 % Neutrophils # 2.9 (1.6-8.9) K/mcL Lymphocytes # 0.6 (0.6-4.6) K/mcL Monocytes # 0.2 (0.0-1.3) K/mcL Eosinophils # 0.0 (0.0-0.6) K/mcL Basophils # 0.0 (0.0-0.2) K/mcL Sodium 137 (136-145) mEq/L Potassium 4.4 (3.5-4.5) mEq/L Chloride 97 L (98-109) mEq/L Carbon Dioxide 27 (19-29) mEq/L BUN 13 (7-20) mg/dL Creatinine 2.94 H (0.57-1.11) mg/dL Est GFR ( Amer) 19 L (> 60) Est GFR (Non-Af Amer) 16 L (> 60) BUN/Creatinine Ratio 4 L (6-26) Glucose 118 H (70-99) mg/dL Calculated Osmolality 285 (280-300) Calcium 10.2 (8.6-10.8) mg/dL Troponin I 0.03 (0-0.03) ng/mL B-Natriuretic Peptide (0-100) pg/mL 03/11/17 Range/Units 15:42 WBC (4.3-11.1) K/mcL RBC (3.82-4.97) M/mcL Hgb (11.5-15.4) g/dL Hct (35.3-44.9) % MCV (83.0-100.0) fL MCH (28.0-33.3) pg MCHC (31.6-35.5) g/dL RDW (11.5-14.5) % Plt Count (140-400) K/mcL MPV (9.4-12.4) fL Immature Gran % (0-4) % Seg Neutrophils % % Lymphocytes % % Monocytes % % Eosinophils % % Basophils % % Neutrophils # (1.6-8.9) K/mcL Lymphocytes # (0.6-4.6) K/mcL Monocytes # (0.0-1.3) K/mcL Eosinophils # (0.0-0.6) K/mcL Basophils # (0.0-0.2) K/mcL Sodium (136-145) mEq/L Potassium (3.5-4.5) mEq/L Chloride (98-109) mEq/L Carbon Dioxide (19-29) mEq/L BUN (7-20) mg/dL Creatinine (0.57-1.11) mg/dL Est GFR ( Amer) (> 60) Est GFR (Non-Af Amer) (> 60) BUN/Creatinine Ratio (6-26) Glucose (70-99) mg/dL Calculated Osmolality (280-300) Calcium (8.6-10.8) mg/dL Troponin I (0-0.03) ng/mL B-Natriuretic Peptide 3221 H (0-100) pg/mL - Radiology Data Radiology results reviewed: Yes I reviewed the patient's radiology results. Chest X-Ray 03/11/17 15:40 IMPRESSION: 1. Cardiomegaly without failure. 2. Right middle lobe atelectasis, with similar findings on prior CT of 02/12/2017. 3. Left lower lobe atelectasis may be slightly improved compared to the prior CT. D/ / 03/11/2017 16:12:03 Binh Baker MD / bcarter Interpreting Provider: Binh Baker MD - EKG Data EKG attestation: Yes I reviewed and interpreted this EKG. EKG results narrative: EKG dated March 2017 at 15:37 interpreted as sinus rhythm with rate of 80. Normal intervals. 23, QRS 85, QT/QTc 47/443. Left axis. Nonspecific ST T changes. Compared to previous dated 01/14/2017 showing no acute ischemic changes or comparison.
[2017-03-11] MEDS: Ipratropium/Albuterol Neb 3 ML IH ONE ×2 (15:56→16:01)
[2017-03-11 15:59] LABS: Basophils % 0.5 %; Eosinophils % 0.3 %; Hemoglobin 10.6 g/dL (11.5-15.4); Immature Granulocytes % 0.3 % (0-4); Lymphocytes # 0.6 K/mcL (0.6-4.6); Lymphocytes % 15.4 %; Mean Corpuscular HGB Conc 34.2 g/dL (31.6-35.5); Mean Corpuscular Hemoglobin 32.7 pg (28.0-33.3); Mean Corpuscular Volume 95.7 fL (83.0-100.0); Mean Platelet Volume 10.2 fL (9.4-12.4); Monocytes # 0.2 K/mcL (0.0-1.3); Monocytes % 6.4 %; Neutrophils # 2.9 K/mcL (1.6-8.9); Platelet Count 137 K/mcL (140-400); Red Blood Count 3.24 M/mcL (3.82-4.97); Red Cell Distribution Width 14.7 % (11.5-14.5); Segmented Neutrophils % 77.1 %
[2017-03-11] MEDS ORDERED: *HR* Morphine 2 MG/ML SYRINGE IVP ONE ×2 (16:09→17:38)
[2017-03-11] MEDS ORDERED: Ondansetron 4 MG/2 ML VIAL IVP ONE (16:09)
[2017-03-11] MEDS ORDERED: *HR* Labetalol 20 MG/4 ML SYRINGE IVP ONE (16:11)
--- NOTE | 2017-03-11 16:11 | Emergency Department Note ---
START Narrative - START START: I examined this patient and my medical decision-making was reviewed with the JOURNEYMAN MACHINIST/PA/Advanced Practice Nurse/Resident Physician. I agree with the documented findings, disposition and treatment plan as described except to the extent set forth below.
[2017-03-11 16:12] LABS: Calcium 10.2 mg/dL (8.6-10.8); Potassium 4.4 mEq/L (3.5-4.5)
[2017-03-11] MEDS ORDERED: Metoclopramide 10 MG/2 ML VIAL IVP ONE (18:34)
[2017-03-11] MEDS ORDERED: Ketorolac 15 MG/ML VIAL IVP ONE (18:34)
[2017-03-11] MEDS ORDERED: Levofloxacin 500 MG/100 ML 500 MG/100 ML BAG IVPB ONE (20:19)
[2017-03-11] MEDS ORDERED: Ondansetron ODT 4 MG TAB.RAPDIS SL PRN (21:40)
[2017-03-11] MEDS ORDERED: Naloxone 0.4 MG/ML INJ IVP PRN (21:40)
[2017-03-11] MEDS ORDERED: Pregabalin 50 MG CAPSULE PO PRN (21:43)
[2017-03-11] MEDS ORDERED: tiZANidine 4 MG TABLET PO PRN (21:43)
[2017-03-11] MEDS ORDERED: Albuterol 2.5 MG/3 ML NEBULIZER IH PRN (21:51)
[2017-03-11] MEDS ORDERED: Furosemide 40 MG/4 ML VIAL IVP SCH (22:00)
--- NOTE | 2017-03-11 22:01 | Internal Med History&Physical ---
Date of Encounter: 03/11/17 Time of Encounter: 21:57 Assessment and Plan (1) Acute exacerbation of chronic obstructive pulmonary disease (COPD) Current visit: Yes Status: Acute Patient presented with shortness of breath and hypoxia satting in the 70s on room air, 84% on 4 L. she does have COPD and follows with Dr. Phillips as an outpatient, does not require oxygen at home normally. Chest x-ray showed cardiomegaly without failure, right middle lobe atelectasis, and left lower lobe atelectasis. She was given Solu-Medrol, and DuoNeb treatments, Patient's saturation improved to 97% on 4 L, on my assessment she was 98% on 2 L. Solu-Medrol 40 mg IV push every 8 hours DuoNeb treatments 4 times a day Albuterol nebulizer every 2 hours when necessary Titrate oxygen to maintain saturation greater than 92% 750 mg of Levaquin given in the ER, continue with renal dosing 500 mg every 48 hours. (2) Hypoxia Current visit: Yes Status: Acute Secondary to COPD exacerbation. She developed acute shortness of breath and was hypoxic, satting in the 70s on room air, 84% on 4 L. Titrate oxygen to maintain saturation greater than 92%. Treat COPD exacerbation with steroids, DuoNeb treatments, and antibiotics. (3) Headache Current visit: Yes Status: Acute Patient reported headache starting yesterday and worsening over time. CT of the head showed no acute intracranial abnormality. She was given morphine emergency room with no improvement, she was given migraine cocktail with some reported improvement, though patient still reporting a headache. Fiorcet when necessary for headache Qualifiers: Headache type: unspecified Headache chronicity pattern: acute headache Intractability: intractable Qualified Code(s): R51 - Headache (4) HTN (hypertension) Current visit: No Status: Chronic Patient has been hypertensive since arrival, blood pressure somewhat improved now that patient's headache has improved. We will give 40 mg IV push of Lasix once. Continue to monitor blood pressures. Continue home medications. Qualifiers: Hypertension type: essential hypertension Qualified Code(s): I10 - Essential (primary) hypertension (5) Congestive heart failure Current visit: Yes Status: Chronic Patient with history of congestive heart failure, echo in December showed mild left ventricular diastolic dysfunction, normal left ventricular systolic function with EF of 60%, mild LVH, severely dilated left atrium and right atrium. BNP elevated to 3221, however this is unreliable in the setting of end- stage renal disease. Chest x-ray shows cardiomegaly without failure. Patient with bilateral lower extremity edema, lungs are diminished. We will give 1 dose of 40 mg Lasix IV push now. Increase Lasix dose to 40 mg by mouth twice a day. Qualifiers: Congestive heart failure type: diastolic Congestive heart failure chronicity: chronic Qualified Code(s): I50.32 - Chronic diastolic (congestive ) heart failure (6) ESRD on dialysis Current visit: No Status: Chronic Patient with end-stage renal disease on hemodialysis Tuesday, she follows Dr. Corea as an outpatient. She received dialysis today. No indication for urgent dialysis at this time, creatinine is 2.94, improved from her baseline. Potassium is normal at 4.4, CO2 is 27. Ordered consult for nephrology/Dr. Corea, will need to be called in the morning. (7) DVT prophylaxis Current visit: No Status: Acute Antiembolic stockings Heparin 5000 units subcutaneous BID Internal Medicine - H&P: HPI Chief complaint: shortness of breath Admitted From: Emergency Dept Plans for Post Hospital Care: Home History of present illness: Ms. Carmona is a 76 year old female with hypertension, hyperlipidemia, COPD, end-stage renal disease on dialysis, CHF who presents to the emergency department today with complaints of headache and shortness of breath. Patient reports headache started yesterday and has progressively getting worse. She took describes the pain as drilling in her temples and then aching throughout the rest of her head, she reports that her headache has improved somewhat from the migraine cocktail given in the emergency department, though it is not gone. Shortness of breath developed today after hemodialysis, accompanied by nausea and dry heaves. She reports she has been short of breath on exertion the last several weeks to months. She does have a diagnosis of COPD and follows with Dr. Phillips as an outpatient. On presentation her oxygen saturation was in the 70s on room air. She was 84% on 4 L, this improved to 97% on 4 L after DuoNeb treatments. On my assessment she was improved to 97% on 2 L. she denies any chest pain, palpitations, abdominal pain, diarrhea, fever. She reports chills and sweats. Evaluation in the emergency department included troponin which was negative at 0.03. BNP which was elevated to 3221, chest x-ray showed cardiomegaly without failure, right middle lobe atelectasis similar to CT on 02/12, left lower lobe atelectasis improved from CT on 02/12/17. EKG showed sinus rhythm no acute changes from previous EKG. CT of the head showed no acute intercranial abnormalities. She is chronically anemic hemoglobin was 10.6. Creatinine is elevated at 2.94 by consistent with her diagnosis of end-stage renal disease. On exam, patient was drowsy but oriented, lungs were diminished in the bases, heart had regular rate and rhythm with systolic murmur, bilateral lower extremities with +2 edema. Past Med Surg Social Fam HX - Past Medical History Medical history: asthma, COPD, DVT, dialysis, hyperlipidemia, hypertension, osteoporosis, renal disease Psychiatric history: no psych history - Past Surgical History Surgical History: other (donor nephrectomy) - Social History Smoking Status: Former smoker Smokeless Tobacco Status: No Alcohol use: none Drug use: none - Family History Mother Living Status: Hx Family Cardiac Disorders: No Hx Family Respiratory Disorders: No Hx Family Cancer: Yes (Colon) Hx Family GI Disorders: No Hx Family Endocrine Disorder: Yes (Borderline DM) Hx Family Neuromuscular Disorders: No Hx Family Neurologic Disorders: No Hx Family HEENT Disorders: No Hx Family Autoimmune Disorders: No Internal Medicine - H&P: Meds Albuterol Sulfate [Ventolin Hfa] 2 puff IH Q4H PRN 10/12/16 [History] Allopurinol [Zyloprim] 100 mg PO DAILY 10/12/16 [History] Aspirin 81 mg PO DAILY 10/12/16 [History] Atorvastatin [Lipitor] 40 mg PO HS 10/12/16 [History] Budesonide/Formoterol 160/4.5 [Symbicort 160/4.5] 2 puff IH BIDR 10/12/16 [ History] Cholecalciferol (Vitamin D3) [Vitamin D3] 2,000 unit PO DAILY 10/12/16 [History] Furosemide [Lasix] 20 mg PO QPM 10/12/16 [History] Furosemide [Lasix] 40 mg PO QAM 10/12/16 [History] Pregabalin [Lyrica] 50 mg PO BID PRN 10/12/16 [History] amLODIPine [Norvasc] 5 mg PO 1-2XD 10/12/16 [History] Ipratropium [place] 2 spray NS BID 01/14/17 [History] Levothyroxine [Synthroid] 25 mcg PO DAILY 01/14/17 [History] Losartan Potassium [Cozaar] 50 mg PO DAILY 01/14/17 [History] Metoprolol XL (24 HR) Succ [Toprol Xl] 50 mg PO DAILY 01/14/17 [History] Multivitamin [Multi-Day Vitamins] 1 tab PO DAILY 01/14/17 [History] Acetylcysteine [Q-Ykzerp-o-Cysteine] 600 mg PO TID 03/11/17 [History] HYDROcodone/Acet 5/325 mg [[place] 5-325 mg] 1 tab PO TID PRN 03/11/17 [History] Lisinopril [Zestril] 10 mg PO BID 03/11/17 [History] Loratadine [Claritin] 10 mg PO DAILY 03/11/17 [History] Sevelamer [Renvela] 1,600 mg PO TIDWM 03/11/17 [History] Tizanidine HCl 4 mg PO TID PRN 03/11/17 [History] Allergies codeine Adverse Reaction (Verified 01/14/17 18:20) Rash gabapentin Adverse Reaction (Verified 01/14/17 18:20) Itching All Systems PM: A 10-system review of systems was performed and is negative for pertinent findings except as documented above in the HPI. - Constitutional Constitutional: chills, no fever(s), no night sweats - EENT Eyes: no change in vision, no discharge, no pain, no photophobia Ears: no ear discharge, no ear pain, no tinnitus Nose, mouth and throat: no dysphagia, no nasal discharge, no neck pain, no sore throat - Cardiovascular Cardiovascular ROS IM: dyspnea, dyspnea on exertion, edema, no chest pain, no diaphoresis, no lightheadedness, no palpitations, no syncope - Respiratory Respiratory: dyspnea, no cough, no wheezing, no excessive phlegm production - Gastrointestinal Gastrointestinal: no abdominal pain, no diarrhea, no hematemesis, no hematochezia, no melena, no nausea, no vomiting - Genitourinary Genitourinary: no change in urinary stream, no dysuria, no flank pain, no hematuria - Musculoskeletal Musculoskeletal ROS IM: no numbness, no tingling - Integumentary Integumentary IM: no rash, no unusual bruising - Neurological Neurological ROS: no confusion, no convulsions, no focal weakness, no numbness, no tingling, no tremor(s) - Hematologic/Lymphatic Hematologic/Lymphatic: no easy bruising - Constitutional Vitals: Temp Pulse Resp BP Pulse Ox 98.1 F 71 16 146/70 99 03/11/17 15:25 03/11/17 20:22 03/11/17 20:22 03/11/17 20:22 03/11/17 20:22 General appearance: Present: A&O X 3, pleasant, no acute distress - Head Head exam: Present: atraumatic, normocephalic - Eye Eye exam: Present: PERRL, conjuntiva pink, sclera anicteric Pupils: Present: PERRL - Neck Neck exam general surgery: Present: supple, trachea midline. Absent: lymphadenopathy - Respiratory Respiratory exam: Present: decreased breath sounds. Absent: accessory muscle use, rales, rhonchi, wheezes - Cardiovascular Cardiovascular exam: Present: RRR, +S1, +S2. Absent: diastolic murmur, gallop, rubs, systolic murmur - GI/Abdominal GI/Abdominal exam: Present: normal bowel sounds, soft, no peritoneal signs. Absent: distended, tenderness - Extremities Exam Extremities exam: Present: pedal edema (+2 BLE edema), warm, radial pulses palpable and symetrical. Absent: calf tenderness, cyanotic - Neurological Exam Neurological exam: Present: CN II-XII intact, oriented X3, no focal deficits. Absent: facial droop, speech deficit - Skin Skin exam: Present: dry, intact Internal Med - H&P Results - Labs CBC & Chem 7: 03/11/17 15:42 03/11/17 15:42 Labs: All Lab Results (24 Hours) 03/11/17 03/11/17 03/11/17 Range/Units 15:42 15:42 15:42 WBC 3.8 L (4.3-11.1) K/mcL RBC 3.24 L (3.82-4.97) M/mcL Hgb 10.6 L (11.5-15.4) g/dL Hct 31.0 L (35.3-44.9) % MCV 95.7 (83.0-100.0) fL MCH 32.7 (28.0-33.3) pg MCHC 34.2 (31.6-35.5) g/dL RDW 14.7 H (11.5-14.5) % Plt Count 137 L (140-400) K/mcL MPV 10.2 (9.4-12.4) fL Immature Gran % 0.3 (0-4) % Seg Neutrophils % 77.1 % Lymphocytes % 15.4 % Monocytes % 6.4 % Eosinophils % 0.3 % Basophils % 0.5 % Neutrophils # 2.9 (1.6-8.9) K/mcL Lymphocytes # 0.6 (0.6-4.6) K/mcL Monocytes # 0.2 (0.0-1.3) K/mcL Eosinophils # 0.0 (0.0-0.6) K/mcL Basophils # 0.0 (0.0-0.2) K/mcL Sodium 137 (136-145) mEq/L Potassium 4.4 (3.5-4.5) mEq/L Chloride 97 L (98-109) mEq/L Carbon Dioxide 27 (19-29) mEq/L BUN 13 (7-20) mg/dL Creatinine 2.94 H (0.57-1.11) mg/dL Est GFR ( Amer) 19 L (> 60) Est GFR (Non-Af Amer) 16 L (> 60) BUN/Creatinine Ratio 4 L (6-26) Glucose 118 H (70-99) mg/dL Calculated Osmolality 285 (280-300) Calcium 10.2 (8.6-10.8) mg/dL Troponin I 0.03 (0-0.03) ng/mL B-Natriuretic Peptide (0-100) pg/mL 03/11/17 Range/Units 15:42 WBC (4.3-11.1) K/mcL RBC (3.82-4.97) M/mcL Hgb (11.5-15.4) g/dL Hct (35.3-44.9) % MCV (83.0-100.0) fL MCH (28.0-33.3) pg MCHC (31.6-35.5) g/dL RDW (11.5-14.5) % Plt Count (140-400) K/mcL MPV (9.4-12.4) fL Immature Gran % (0-4) % Seg Neutrophils % % Lymphocytes % % Monocytes % % Eosinophils % % Basophils % % Neutrophils # (1.6-8.9) K/mcL Lymphocytes # (0.6-4.6) K/mcL Monocytes # (0.0-1.3) K/mcL Eosinophils # (0.0-0.6) K/mcL Basophils # (0.0-0.2) K/mcL Sodium (136-145) mEq/L Potassium (3.5-4.5) mEq/L Chloride (98-109) mEq/L Carbon Dioxide (19-29) mEq/L BUN (7-20) mg/dL Creatinine (0.57-1.11) mg/dL Est GFR ( Amer) (> 60) Est GFR (Non-Af Amer) (> 60) BUN/Creatinine Ratio (6-26) Glucose (70-99) mg/dL Calculated Osmolality (280-300) Calcium (8.6-10.8) mg/dL Troponin I (0-0.03) ng/mL B-Natriuretic Peptide 3221 H (0-100) pg/mL - Impressions ITS Impressions Chest X-Ray 03/11/17 15:40 IMPRESSION: 1. Cardiomegaly without failure. 2. Right middle lobe atelectasis, with similar findings on prior CT of 02/12/2017. 3. Left lower lobe atelectasis may be slightly improved compared to the prior CT. D/ : / 03/11/2017 16:12:03 Binh Baker MD / bcarter Interpreting Provider: Binh Baker MD Head CT 03/11/17 18:05 IMPRESSION: No acute intracranial abnormality. D/ / Mark Junior MD / Mark Junior MD Interpreting Provider: Mark Junior MD - Diagnostic Studies Chest x-ray Additional comments: Chest X-Ray 03/11/17 15:40 IMPRESSION: 1. Cardiomegaly without failure. 2. Right middle lobe atelectasis, with similar findings on prior CT of 02/12/2017. 3. Left lower lobe atelectasis may be slightly improved compared to the prior CT. D/ : / 03/11/2017 16:12:03 Binh Baker MD / monae Interpreting Provider: Binh Baker MD CT scan - head Additional comments: Head CT 03/11/17 18:05
[2017-03-11] MEDS: *HR* Labetalol 20 MG/4 ML SYRINGE IVP ONE ×2 (22:04→22:53)
[2017-03-11] MEDS ORDERED: Furosemide 40 MG/4 ML VIAL IVP ONE (22:17)
[2017-03-11] MEDS ORDERED: Acetaminophen/Butalbital/CaffeineTABLET PO PRN (22:18)
[2017-03-11] MEDS: Budesonide/Formoterol 160/4.5 MDI IH SCH (23:27)
[2017-03-11] MEDS: Ipratropium/Albuterol Neb 3 ML IH SCH (23:27)
[2017-03-12] MEDS: MethylPREDNISolone 40 MG/ML VIAL IVP SCH ×4 (00:07→23:23)
[2017-03-12] MEDS: *HR* HYDROcodone/Acet 5/325 mg TABLET PO PRN (00:14)
[2017-03-12] MEDS: Ipratropium/Albuterol Neb 3 ML IH SCH ×4 (04:08→22:43)
[2017-03-12] MEDS: Levothyroxine 25 MCG TABLET PO SCH (05:59)
[2017-03-12] MEDS: *HR* Heparin 5,000 UNIT/ML VIAL SQ SCH ×2 (06:02→18:12)
[2017-03-12 06:56] LABS: Red Cell Distribution Width 14.6 % (11.5-14.5)
[2017-03-12 06:57] LABS: Hematocrit 26.9 % (35.3-44.9); Immature Granulocytes % 0.5 % (0-4); Lymphocytes # 0.3 K/mcL (0.6-4.6); Lymphocytes % 14.2 %; Mean Corpuscular HGB Conc 32.7 g/dL (31.6-35.5); Mean Corpuscular Hemoglobin 31.7 pg (28.0-33.3); Mean Corpuscular Volume 96.8 fL (83.0-100.0); Mean Platelet Volume 10.5 fL (9.4-12.4); Monocytes % 1.1 %; Neutrophils # 1.6 K/mcL (1.6-8.9); Platelet Count 109 K/mcL (140-400); Red Blood Count 2.78 M/mcL (3.82-4.97); Segmented Neutrophils % 84.2 %
[2017-03-12 07:05] LABS: Hemoglobin 8.8 g/dL (11.5-15.4)
[2017-03-12 07:08] LABS: Calcium 9.8 mg/dL (8.6-10.8); Potassium 5.4 mEq/L (3.5-4.5)
[2017-03-12 07:24] LABS: Anisocytosis 1+ (Not Present)
[2017-03-12 07:25] LABS: Large Platelets Present (Not Present); Platelet Estimate Slight Decrease (Normal)
[2017-03-12] MEDS: Aspirin 81 MG TAB.CHEW PO SCH (08:46)
[2017-03-12] MEDS: Furosemide 40 MG TABLET PO SCH ×2 (08:46→15:55)
[2017-03-12] MEDS: Metoprolol XL (24 HR) Succ 50 MG TAB.ER.24H PO SCH (08:46)
[2017-03-12] MEDS: amLODIPine 5 MG TABLET PO SCH (08:46)
[2017-03-12] MEDS: *HR* Acetylcysteine 20% 600 MG/3 ML ORAL SYRINGE PO SCH ×3 (08:46→22:25)
[2017-03-12] MEDS: Budesonide/Formoterol 160/4.5 MDI IH SCH (10:45)
[2017-03-12] MEDS ORDERED: Ipratropium/Albuterol Neb 3 ML IH PRN (13:19)
--- NOTE | 2017-03-12 13:22 | Internal Med Progress Note ---
Date of Encounter: 03/12/17 Time of Encounter: 13:17 - Subjective Interval history: Patient seen and examined at bedside. Resting in bed and reports of feeling slightly better. continues to have wheezing. Assessment and Plan (1) Acute exacerbation of chronic obstructive pulmonary disease (COPD) Current visit: Yes Status: Acute Noted to be severely hypoxic upon admission, resolved at this time will continue iV steroids, abx, and bronchodilator support at this time given reported atelectasis on CXR and diffuse rhonchi, will provide with an incentive spirometer monitor O2 sat, given history of COPD, goal O2 sat: 89-92% (2) Hypoxia Current visit: Yes Status: Acute secondary COPD exacerbation resolved plan as listed above (3) Headache Current visit: Yes Status: Acute resolved Fiorcet when necessary for headache Qualifiers: Headache type: unspecified Headache chronicity pattern: acute headache Intractability: intractable Qualified Code(s): R51 - Headache (4) HTN (hypertension) Current visit: No Status: Chronic BP within acceptable range continue home meds Qualifiers: Hypertension type: essential hypertension Qualified Code(s): I10 - Essential (primary) hypertension (5) Congestive heart failure Current visit: Yes Status: Chronic Patient with history of congestive heart failure, echo in December showed mild left ventricular diastolic dysfunction, normal left ventricular systolic function with EF of 60%, mild LVH, severely dilated left atrium and right atrium. continue Lasix dose to 40 mg by mouth twice a day. no clinical signs of acute exacerbation Qualifiers: Congestive heart failure type: diastolic Congestive heart failure chronicity: chronic Qualified Code(s): I50.32 - Chronic diastolic (congestive ) heart failure (6) ESRD on dialysis Current visit: No Status: Chronic Nephrology consulted for continuation of HD (MWF) (7) DVT prophylaxis Current visit: No Status: Acute Heparin SQ - Constitutional Vitals: Temp Pulse Resp BP Pulse Ox 98.4 F 67 18 143/72 100 03/12/17 10:55 03/12/17 10:55 03/12/17 10:55 03/12/17 10:55 03/12/17 10:55 General appearance: Present: A&O X 3, pleasant, no acute distress - Head Head exam: Present: atraumatic, normocephalic - Eye Eye exam: Present: normal appearance, conjuntiva pink, sclera anicteric - Respiratory Respiratory exam: Present: rhonchi. Absent: wheezes - Cardiovascular Cardiovascular exam: Present: RRR, +S1, +S2. Absent: diastolic murmur, gallop, rubs, systolic murmur - GI/Abdominal GI/Abdominal exam: Present: normal bowel sounds, soft, no peritoneal signs. Absent: distended, tenderness - Extremities Exam Extremities exam: Absent: calf tenderness Additional comments: bilateral LE edema - Neurological Exam Neurological exam: Present: alert, oriented X3 - Psychiatric Psychiatric exam: Present: normal affect, normal mood Internal Medicine: Result - Labs CBC & Chem 7: 03/12/17 06:26 03/12/17 06:26 Labs: Short CBC 03/12/17 Range/Units 06:26 WBC 1.9 L (4.3-11.1) K/mcL Hgb 8.8 L D (11.5-15.4) g/dL Hct 26.9 L (35.3-44.9) % Plt Count 109 L (140-400) K/mcL Neutrophils # 1.6 (1.6-8.9) K/mcL BMP 03/12/17 06:26 Sodium 135 L Potassium 5.4 H D Chloride 98 Carbon Dioxide 27 BUN 21 H Creatinine 4.01 H Glucose 129 H Calcium 9.8 Consult Discharge Plan - Plan Referrals: Vladimir Chaidez MD [Primary Care Provider] -
--- NOTE | 2017-03-12 14:23 | Nephrology Consult Note ---
Date of Encounter: 03/12/17 Time of Encounter: 13:54 Assessment and Plan (1) ESRD on dialysis Current Visit: No Status: Chronic 1. ESRD. Plan for dialysis on Tuesday if pt is still in the hospital Mild hyperkalemia. Continue renal diet, dose of Kayexalate today, rpt serum potassium level tomorrow Check serum phosphate level 2. HTN, BP was elevated yesterday but stable today. Currently on amlodipine, Lasix, lisinopril, losartan and metoprolol DC lisinopril, plan to increase the dose of losartan and add doxazosin if BP trends up 3. Anemia of chronic disease, resume outpatient dose of Procrit on Tuesday History of Present Illness - Reason for Consult end stage renal disease - Chief Complaint esrd - History of Present Illness 76 years old female came to ER with headache and shortness of breath. pt has h/o COPD, has baseline shortness of breath with strenuous activities. c/ o worsening shortness of breath for the last couple of days, has intermittent wheezing. C/o headache, pain in the back of the neck and shoulder blades for the last couple of days She was hypoxic with O2 sat of 70%, improved with 4 L of oxygen and Duonebs. Headache improved with migraine cocktail. Chest x-ray; cardiomegaly, atelectasis in the rt middle lobe, left lower lobe Hemoglobin 10.6 creatinine 2.9. Diagnosed with COPD exacerbation, Solu-Medrol, duonebs and Levaquin were started History of ESRD on dialysis for the last couple of years. Dialyzes Tuesday, had complete treatment yesterday Past Med Surg Social [facility] HX - Past Medical History Medical history: asthma, COPD, DVT, dialysis, hyperlipidemia, hypertension, osteoporosis, renal disease Psychiatric history: no psych history - Past Surgical History Surgical History: other - Social History Smoking Status: Former smoker Smokeless Tobacco Status: No Alcohol use: none Drug use: none - Family History Mother Living Status: Hx Family Cardiac Disorders: No Hx Family Respiratory Disorders: No Hx Family Cancer: Yes (Colon) Hx Family GI Disorders: No Hx Family Endocrine Disorder: Yes (Borderline DM) Hx Family Neuromuscular Disorders: No Hx Family Neurologic Disorders: No Hx Family HEENT Disorders: No Hx Family Autoimmune Disorders: No Medications and Allergies Albuterol Sulfate [Ventolin Hfa] 2 puff IH Q4H PRN 10/12/16 [History] Allopurinol [Zyloprim] 100 mg PO DAILY 10/12/16 [History] Aspirin 81 mg PO DAILY 10/12/16 [History] Atorvastatin [Lipitor] 40 mg PO HS 10/12/16 [History] Budesonide/Formoterol 160/4.5 [Symbicort 160/4.5] 2 puff IH BIDR 10/12/16 [ History] Cholecalciferol (Vitamin D3) [Vitamin D3] 2,000 unit PO DAILY 10/12/16 [History] Furosemide [Lasix] 20 mg PO QPM 10/12/16 [History] Furosemide [Lasix] 40 mg PO QAM 10/12/16 [History] Pregabalin [Lyrica] 50 mg PO BID PRN 10/12/16 [History] amLODIPine [Norvasc] 5 mg PO 1-2XD 10/12/16 [History] Ipratropium [place] 2 spray NS BID 01/14/17 [History] Levothyroxine [Synthroid] 25 mcg PO DAILY 01/14/17 [History] Losartan Potassium [Cozaar] 50 mg PO DAILY 01/14/17 [History] Metoprolol XL (24 HR) Succ [Toprol Xl] 50 mg PO DAILY 01/14/17 [History] Multivitamin [Multi-Day Vitamins] 1 tab PO DAILY 01/14/17 [History] Acetylcysteine [R-Mdpfux-g-Cysteine] 600 mg PO TID 03/11/17 [History] HYDROcodone/Acet 5/325 mg [[place] 5-325 mg] 1 tab PO TID PRN 03/11/17 [History] Lisinopril [Zestril] 10 mg PO BID 03/11/17 [History] Loratadine [Claritin] 10 mg PO DAILY 03/11/17 [History] Sevelamer [Renvela] 1,600 mg PO TIDWM 03/11/17 [History] Tizanidine HCl 4 mg PO TID PRN 03/11/17 [History] Allergies codeine Adverse Reaction (Verified 01/14/17 18:20) Rash gabapentin Adverse Reaction (Verified 01/14/17 18:20) Itching Review of Systems All Systems 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; 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 Musculoskeletal; has minimal pain in the back of the neck and shoulder blades ; makes minimal amount of urine PULM; currently denies shortness of breath at rest Exam - Vital Signs Vital signs: Initial Vital Signs Temp Pulse Resp BP Pulse Ox 98.1 F 70 24 0/0 75 03/11/17 15:25 03/11/17 15:25 03/11/17 15:25 03/11/17 15:25 03/11/17 15:25 Vital Signs - Last 8 Hours Temp Pulse Resp BP Pulse Ox 03/12/17 10:55 98.4 F 67 18 143/72 100 03/12/17 10:46 16 94 03/12/17 08:59 93 03/12/17 06:57 98.3 F 70 18 132/68 95 Intake and Output 03/11/17 03/12/17 03/12/17 23:59 07:59 15:59 Intake Total 240 / 240 Balance 240 / 240 Intake: Oral 240 / 240 Other: Meal Breakfast Percent of Meal Consumed 100% Weight 80.343 kg - General Appearance Exam: HEENT; pallor present, no icterus NECK ; no JVD no lymphadenopathy no carotid bruit CVS; s1s2 present, regular, no murmurs RESP; good air entry, scattered expiratory rhonchi ABD; soft, NT, BS present, no organomegaly, no bruits EXT; 2+ edema, DP pulses palpable. 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
[2017-03-13] MEDS: Ipratropium/Albuterol Neb 3 ML IH SCH ×3 (04:42→15:17)
[2017-03-13 04:57] LABS: Hematocrit 26.3 % (35.3-44.9); Hemoglobin 8.9 g/dL (11.5-15.4); Immature Granulocytes % 0.5 % (0-4); Lymphocytes # 0.3 K/mcL (0.6-4.6); Lymphocytes % 4.5 %; Mean Corpuscular HGB Conc 33.8 g/dL (31.6-35.5); Mean Corpuscular Volume 97.4 fL (83.0-100.0); Mean Platelet Volume 10.6 fL (9.4-12.4); Monocytes # 0.1 K/mcL (0.0-1.3); Monocytes % 2.4 %; Neutrophils # 5.1 K/mcL (1.6-8.9); Platelet Count 125 K/mcL (140-400); Red Cell Distribution Width 15.1 % (11.5-14.5); Segmented Neutrophils % 92.6 %
[2017-03-13 05:13] LABS: Magnesium 2.4 mg/dL (1.6-2.6); Phosphorous 6.2 mg/dL (2.3-4.7); Potassium 5.5 mEq/L (3.5-4.5)
[2017-03-13] MEDS: *HR* Heparin 5,000 UNIT/ML VIAL SQ SCH ×2 (06:06→18:10)
[2017-03-13] MEDS: Levothyroxine 25 MCG TABLET PO SCH (06:06)
[2017-03-13] MEDS: Metoprolol XL (24 HR) Succ 50 MG TAB.ER.24H PO SCH (08:40)
[2017-03-13] MEDS: amLODIPine 5 MG TABLET PO SCH (08:40)
[2017-03-13] MEDS: Aspirin 81 MG TAB.CHEW PO SCH (08:40)
[2017-03-13] MEDS: MethylPREDNISolone 40 MG/ML VIAL IVP SCH ×2 (08:40→20:00)
[2017-03-13] MEDS: Furosemide 40 MG TABLET PO SCH ×2 (08:40→16:58)
[2017-03-13] MEDS: *HR* Acetylcysteine 20% 600 MG/3 ML ORAL SYRINGE PO SCH ×3 (08:49→20:00)
[2017-03-13] MEDS ORDERED: amLODIPine 5 MG TABLET PO ONE (11:15)
--- NOTE | 2017-03-13 11:15 | Internal Med Progress Note ---
Date of Encounter: 03/13/17 Time of Encounter: 11:12 - Subjective Interval history: Patient seen and examined at bedside. Resting in bed and reports of feeling better compared to previous day. Noted to not be on home oxygen. Will perform home O2 qualification in am Assessment and Plan (1) Acute exacerbation of chronic obstructive pulmonary disease (COPD) Current visit: Yes Status: Acute Noted to be severely hypoxic upon admission, resolved at this time will continue iV steroids, abx, and bronchodilator support at this time. decreased steroids to 40mg IV q12h continue incentive spirometery monitor O2 sat, given history of COPD, goal O2 sat: 89-92% (2) Hypoxia Current visit: Yes Status: Acute secondary COPD exacerbation resolved plan as listed above (3) Headache Current visit: Yes Status: Acute resolved Fiorcet when necessary for headache Qualifiers: Headache type: unspecified Headache chronicity pattern: acute headache Intractability: intractable Qualified Code(s): R51 - Headache (4) HTN (hypertension) Current visit: No Status: Chronic Noted to be hypertensive Lisinopril discontinued by rn interventional and Losartan increased Will increase Amlodipine to 10mg PO qdaily continue home meds Qualifiers: Hypertension type: essential hypertension Qualified Code(s): I10 - Essential (primary) hypertension (5) Congestive heart failure Current visit: Yes Status: Chronic Patient with history of congestive heart failure, echo in December showed mild left ventricular diastolic dysfunction, normal left ventricular systolic function with EF of 60%, mild LVH, severely dilated left atrium and right atrium. continue Lasix dose to 40 mg by mouth twice a day. no clinical signs of acute exacerbation Qualifiers: Congestive heart failure type: diastolic Congestive heart failure chronicity: chronic Qualified Code(s): I50.32 - Chronic diastolic (congestive ) heart failure (6) ESRD on dialysis Current visit: No Status: Chronic Nephrology consulted for continuation of HD (MWF) (7) DVT prophylaxis Current visit: No Status: Acute Heparin SQ - Constitutional Vitals: Temp Pulse Resp BP Pulse Ox 98.8 F 66 16 159/72 99 03/13/17 10:48 03/13/17 10:48 03/13/17 10:48 03/13/17 10:48 03/13/17 10:48 General appearance: Present: A&O X 3, pleasant, no acute distress - Head Head exam: Present: atraumatic, normocephalic - Eye Eye exam: Present: normal appearance, conjuntiva pink, sclera anicteric - Respiratory Respiratory exam: Absent: respiratory distress, wheezes - Cardiovascular Cardiovascular exam: Present: RRR, +S1, +S2. Absent: diastolic murmur, gallop, rubs, systolic murmur - GI/Abdominal GI/Abdominal exam: Present: normal bowel sounds, soft, no peritoneal signs. Absent: distended, tenderness - Extremities Exam Extremities exam: Present: pedal edema (bilateral lower extremity edema-chronic venous stasis ), warm, radial pulses palpable and symetrical. Absent: calf tenderness - Neurological Exam Neurological exam: Present: alert, oriented X3 - Psychiatric Psychiatric exam: Present: normal affect, normal mood Internal Medicine: Result - Labs CBC & Chem 7: 03/13/17 04:00 03/13/17 04:00 Labs: Short CBC 03/13/17 Range/Units 04:00 WBC 5.5 D (4.3-11.1) K/mcL Hgb 8.9 L (11.5-15.4) g/dL Hct 26.3 L (35.3-44.9) % Plt Count 125 L (140-400) K/mcL Neutrophils # 5.1 (1.6-8.9) K/mcL BMP 03/13/17 04:00 Sodium 135 L Potassium 5.5 H Chloride 94 L Carbon Dioxide 32 H BUN 44 H D Creatinine 6.40 H D Glucose 139 H Calcium 10.0 - VTE Documentation of Mechanical Device: Graduated compression elastic hosiery Consult Discharge Plan - Plan Referrals: Vladimir Chaidez MD [Primary Care Provider] -
--- NOTE | 2017-03-13 12:25 | Nephrology Progress Note ---
Date of Encounter: 03/13/17 Time of Encounter: 12:18 - Assessment and Plan (1) ESRD on dialysis Current Visit: No Status: Chronic 1. ESRD; serum potassium and phosphate are high Another dose of Kayexalate today, Plan for HD a.m. Continue Sevalamer, add PhosLo 2. Chronic anemia of renal failure Inquire outpatient dose of Procrit in a.m. from the dialyisis unit and resume the same 3. HTN, dose of amlodipine was increased to 10 mg today, continue losartan and metoprolol and Lasix Subjective Principal diagnosis: esrd Interval history: Afebrile overnight, SBP 130 to 170, on 3 L of oxygen Denies any further headache or shortness of breath Objective - Vital Signs Vital signs: Vital Signs Temp Pulse Resp BP Pulse Ox 03/13/17 10:48 98.8 F 66 16 159/72 99 03/13/17 09:46 66 144/65 03/13/17 08:45 97 03/13/17 06:51 98 F 71 18 158/77 97 03/13/17 04:43 18 90 03/13/17 04:20 98.8 F 74 16 174/77 92 03/13/17 00:05 98.8 F 76 16 143/85 94 03/12/17 22:46 16 93 03/12/17 19:22 98.9 F 76 16 155/78 92 03/12/17 15:38 98.9 F 69 16 131/61 94 Intake and Output 03/12/17 03/13/17 03/13/17 23:59 07:59 15:59 Intake Total 200 / 200 480 / 480 Output Total 500 / 500 Balance -300 / -300 480 / 480 Intake: Oral 200 / 200 480 / 480 Output: Urine 500 / 500 Other: Meal Breakfast Percent of Meal Consumed 100% Weight 67.585 kg Patient Weight 03/13/17 23:59 Weight 67.585 kg - General Appearance Exam: CVS; s1s2 present, regular, no murmurs RESP; good air entry, clear ABD; soft, NT, BS present, EXT; 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
[2017-03-13] MEDS: Calcium Acetate 667 MG CAPSULE PO SCH (16:59)
[2017-03-13] MEDS ORDERED: Levofloxacin 500 MG/100 ML 500 MG/100 ML BAG IVPB SCH (18:00)
[2017-03-13] MEDS: *HR* HYDROcodone/Acet 5/325 mg TABLET PO PRN (20:00)
[2017-03-14] MEDS: Ipratropium/Albuterol Neb 3 ML IH SCH ×5 (00:14→22:56)
[2017-03-14] MEDS: *HR* HYDROcodone/Acet 5/325 mg TABLET PO PRN (05:45)
[2017-03-14 05:51] LABS: Eosinophils % 0.2 %; Hemoglobin 8.7 g/dL (11.5-15.4); Immature Granulocytes % 0.5 % (0-4); Lymphocytes # 0.9 K/mcL (0.6-4.6); Lymphocytes % 15.4 %; Mean Corpuscular HGB Conc 33.5 g/dL (31.6-35.5); Mean Corpuscular Hemoglobin 32.6 pg (28.0-33.3); Mean Corpuscular Volume 97.4 fL (83.0-100.0); Monocytes # 0.5 K/mcL (0.0-1.3); Monocytes % 8.9 %; Neutrophils # 4.2 K/mcL (1.6-8.9); Platelet Count 122 K/mcL (140-400); Red Blood Count 2.67 M/mcL (3.82-4.97)
[2017-03-14 06:00] LABS: Albumin 2.9 g/dL (3.5-5.0); Calcium 9.2 mg/dL (8.6-10.8); Magnesium 2.1 mg/dL (1.6-2.6); Phosphorous 6.3 mg/dL (2.3-4.7); Potassium 4.6 mEq/L (3.5-4.5)
[2017-03-14] MEDS: *HR* Heparin 5,000 UNIT/ML VIAL SQ SCH ×2 (06:27→16:36)
[2017-03-14] MEDS: Levothyroxine 25 MCG TABLET PO SCH (06:27)
--- NOTE | 2017-03-14 06:56 | Electrocardiograph Report ---
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
--- NOTE | 2017-03-14 08:18 | Nephrology Progress Note ---
Date of Encounter: 03/14/17 Time of Encounter: 08:16 - Assessment and Plan (1) Benign hypertension with ESRD (end-stage renal disease) Current Visit: Yes Status: Acute The patient will undergo dialysis today. When increase her losartan. Blood pressure medication should not be held prior to dialysis. Patient will be placed on Aranesp for her anemia. (2) Anemia in chronic kidney disease (CKD) Current Visit: Yes Status: Acute (3) ESRD on dialysis Current Visit: No Status: Chronic (4) Acute exacerbation of chronic obstructive pulmonary disease (COPD) Current Visit: Yes Status: Acute Subjective Principal diagnosis: esrd Interval history: The patient reports she is feeling better. She has less shortness of breath. Her headache has resolved. Blood pressure is not quite optimal yet. She will receive her usual dialysis today. Objective - Vital Signs Vital signs: Vital Signs Temp Pulse Resp BP Pulse Ox 03/14/17 07:55 98.8 F 66 16 181/72 93 03/14/17 04:22 98.3 F 72 16 164/66 92 03/14/17 03:53 16 96 03/14/17 00:14 16 97 03/13/17 23:48 98.2 F 74 16 166/77 96 03/13/17 19:19 98.7 F 75 16 142/63 95 03/13/17 15:29 98.8 F 73 18 138/62 96 03/13/17 15:17 18 91 03/13/17 10:48 98.8 F 66 16 159/72 99 03/13/17 10:44 18 95 03/13/17 09:46 66 144/65 03/13/17 08:45 97 Intake and Output 03/13/17 03/14/17 03/14/17 23:59 07:59 15:59 Intake Total 1060 / 1060 240 / 240 Output Total 0 / 0 0 / 0 Balance 1060 / 1060 240 / 240 Intake: IV Fluids 100 / 100 Levaquin Premix 500mg/ 100 / 100 100mL 500 mg In 100 ml @ 100 mls/hr IVPB Q48H HUSSEIN Rx#:[id number] Oral 960 / 960 240 / 240 Output: Urine 0 / 0 0 / 0 Other: Meal Dinner Percent of Meal Consumed 75% # Bowel Movements 0 0 Weight 69.2 kg Patient Weight 03/14/17 23:59 Weight 69.2 kg - General Appearance Exam: Patient is alert and oriented. She is in no acute distress. Lungs demonstrate diminished breath sounds with occasional wheezing. Heart regular rate and rhythm with a 2/6 systolic murmur. Abdomen is benign. There is some mild swelling of the lower extremities. There is a functioning AV fistula in the left arm. - Lab 03/14/17 05:39 03/14/17 05:39 Most recent lab results Calcium 9.2 mg/dL (8.6-10.8) 03/14/17 05:39 Phosphorus 6.3 mg/dL (2.3-4.7) H 03/14/17 05:39 Magnesium 2.1 mg/dL (1.6-2.6) 03/14/17 05:39 - VTE Documentation of Mechanical Device: Graduated compression elastic hosiery Consult Discharge Plan - Plan Referrals: Vladimir Chaidez MD [Primary Care Provider] -
[2017-03-14] MEDS ORDERED: 0.9 % Sodium Chloride 250 ML IVC PRN (08:19)
[2017-03-14] MEDS: Calcium Acetate 667 MG CAPSULE PO SCH ×3 (08:21→16:36)
[2017-03-14] MEDS: MethylPREDNISolone 40 MG/ML VIAL IVP SCH (08:22)
[2017-03-14] MEDS: *HR* Acetylcysteine 20% 600 MG/3 ML ORAL SYRINGE PO SCH ×3 (08:22→23:09)
[2017-03-14] MEDS: Aspirin 81 MG TAB.CHEW PO SCH (08:22)
[2017-03-14] MEDS: Furosemide 40 MG TABLET PO SCH ×3 (08:23→16:36)
[2017-03-14] MEDS ORDERED: Darbepoetin 100 MCG/0.5 ML SYRINGE SQ SCH (08:30)
[2017-03-14] MEDS: Metoprolol XL (24 HR) Succ 50 MG TAB.ER.24H PO SCH (08:39)
[2017-03-14] MEDS: amLODIPine 5 MG TABLET PO SCH (08:40)
[2017-03-14 09:55] LABS: Hepatitis B Surface Antibody 5.67 mIU/mL; Hepatitis B Surface Antigen Nonreactive (Nonreactive)
--- NOTE | 2017-03-14 12:09 | Discharge Summary ---
Date of Encounter: 03/14/17 Time of Encounter: 12:05 - Discharge Diagnosis (1) Congestive heart failure Priority: Secondary Status: Chronic Qualifiers: Congestive heart failure type: diastolic Congestive heart failure chronicity: chronic Qualified Code(s): I50.32 - Chronic diastolic (congestive ) heart failure (2) ESRD on dialysis Priority: Secondary Status: Chronic (3) DVT prophylaxis Priority: Secondary Status: Acute (4) HTN (hypertension) Priority: Secondary Status: Chronic Qualifiers: Hypertension type: essential hypertension Qualified Code(s): I10 - Essential (primary) hypertension (5) Acute exacerbation of chronic obstructive pulmonary disease (COPD) Priority: Primary Status: Acute (6) Hypoxia Priority: Primary Status: Acute (7) Headache Priority: Primary Status: Resolved Qualifiers: Headache type: unspecified Headache chronicity pattern: acute headache Intractability: intractable Qualified Code(s): R51 - Headache - Discharge Medications Prescriptions: amLODIPine [Norvasc] 10 mg PO DAILY #30 tablet levoFLOXacin [Levofloxacin] 500 mg PO Q48H #2 tablet Losartan [Cozaar] 50 mg PO BID #60 tablet predniSONE [PredniSONE] 40 mg PO DAILY #7 tablet Pregabalin [Lyrica] 25 mg PO DAILY PRN #30 capsule PRN Reason: Neuropathy Home Medications: Albuterol Sulfate [Ventolin Hfa] 2 puff IH Q4H PRN 10/12/16 [History] Allopurinol [Zyloprim] 100 mg PO DAILY 10/12/16 [History] Aspirin 81 mg PO DAILY 10/12/16 [History] Atorvastatin [Lipitor] 40 mg PO HS 10/12/16 [History] Budesonide/Formoterol 160/4.5 [Symbicort 160/4.5] 2 puff IH BIDR 10/12/16 [ History] Cholecalciferol (Vitamin D3) [Vitamin D3] 2,000 unit PO DAILY 10/12/16 [History] Furosemide [Lasix] 20 mg PO QPM 10/12/16 [History] Furosemide [Lasix] 40 mg PO QAM 10/12/16 [History] Ipratropium [place] 2 spray NS BID 01/14/17 [History] Levothyroxine [Synthroid] 25 mcg PO DAILY 01/14/17 [History] Metoprolol XL (24 HR) Succ [Toprol Xl] 50 mg PO DAILY 01/14/17 [History] Multivitamin [Multi-Day Vitamins] 1 tab PO DAILY 01/14/17 [History] Acetylcysteine [L-Doxany-s-Cysteine] 600 mg PO TID 03/11/17 [History] HYDROcodone/Acet 5/325 mg [[place] 5-325 mg] 1 tab PO TID PRN 03/11/17 [History] Loratadine [Claritin] 10 mg PO DAILY 03/11/17 [History] Sevelamer [Renvela] 1,600 mg PO TIDWM 03/11/17 [History] Tizanidine HCl 4 mg PO TID PRN 03/11/17 [History] Losartan [Cozaar] 50 mg PO BID #60 tablet 03/14/17 [Rx] Pregabalin [Lyrica] 25 mg PO DAILY PRN #30 capsule 03/14/17 [Rx] amLODIPine [Norvasc] 10 mg PO DAILY #30 tablet 03/14/17 [Rx] levoFLOXacin [Levofloxacin] 500 mg PO Q48H #2 tablet 03/14/17 [Rx] predniSONE [PredniSONE] 40 mg PO DAILY #7 tablet 03/14/17 [Rx] Allergies/Adverse Reactions: Allergies codeine Adverse Reaction (Verified 01/14/17 18:20) Rash gabapentin Adverse Reaction (Verified 01/14/17 18:20) Itching Date of admission: 03/11/17 22:59 Primary care physician: Vladimir Chaidez MD Consults: 03/14/17 08:30 Consult to Dialysis [CONS] ONCE Discharging clinician: Brittany Lewis Anticipated date of discharge: 03/14/17 - Patient Status Disposition: Home, Self-Care Condition: Fair Functional capacity at discharge: independent ambulation Overall status at discharge: patient is back to baseline - Discharge Instructions Follow Up With: Vladimir Chaidez MD [Primary Care Provider] - 03/24/17 2:00 pm (Please follow up as schedule..) Additional Instructions: Please follow up with your primary care physician within one week after your discharge after the hospital. Please follow up with pulmonology within one week after your discharge from the hospital. please continue oral prednisone as prescribed. Please continue oral antibiotics as prescribed. Your home dose of Lisinopril has been discontinued, Losartan has been increased , Amlodipine dose has been increased. Please take these medications as prescribed. Please continue hemodialysis as per your roping tender. Resume all your home medications as per your primary care physician. - Diet and Activity Activity: resume usual activities as tolerated, wear oxygen at all times Diet: low salt diet Hospital course: Ms. Carmona is a 76 year old female with PMH of HTN, ESRD on HD, COPD, CHF who was admitted for management of headache and shortness of breath. Patient was found to be severely hypoxic upon admission and her hypoxia resolved with O2 supplementation, with complete resolution of her headache. She remained O2 dependant throughout the course of her admission. She was also noted to be hypertensive and her home meds were readjusted. She underwent home O2 qualification testing and qualified for home oxygen therapy. Her respiratory status improved and she is hemodynamically stable. She will be discharged to home with home oxygen. Patient is to receive HD today and will be discharged to home after. Patient demonstrates understanding of her diagnosis and agrees with the discharge care and plan. - Time Spent with Patient Total time spent providing and/or coordinating discharge services: Greater than 30 minutes - Constitutional Vitals: Temp Pulse Resp BP Pulse Ox 98.7 F 69 16 175/78 90 03/14/17 11:30 03/14/17 11:30 03/14/17 11:30 03/14/17 11:30 03/14/17 11:30 General appearance: Present: cooperative, A&O X 3, pleasant, no acute distress - Head Head exam: Present: atraumatic, normocephalic - Eye Eye exam: Present: normal appearance, conjuntiva pink, sclera anicteric - Respiratory Respiratory exam: Present: CTAB. Absent: respiratory distress, wheezes - Cardiovascular Cardiovascular exam: Present: RRR, +S1, +S2. Absent: diastolic murmur, gallop, rubs, systolic murmur - GI/Abdominal GI/Abdominal exam: Present: normal bowel sounds, soft, no peritoneal signs. Absent: distended, tenderness - Extremities Exam Extremities exam: Present: pedal edema (bilateral LE pedal edema), warm, radial pulses palpable and symetrical. Absent: calf tenderness - Neurological Exam Neurological exam: Present: alert, oriented X3 - Psychiatric Psychiatric exam: Present: normal affect, normal mood - VTE Documentation of Mechanical Device: Graduated compression elastic hosiery
[2017-03-14] MEDS ORDERED: *HR* HYDROcodone/Acet 5/325 mg TABLET PO PRN (12:11)
[2017-03-14] MEDS ORDERED: predniSONE 20 MG TABLET PO SCH (12:15)
[2017-03-14] MEDS ORDERED: Pregabalin 25 MG CAPSULE PO SCH (21:00)
[2017-03-15] MEDS: *HR* Heparin 5,000 UNIT/ML VIAL SQ SCH (05:05)
[2017-03-15] MEDS: Levothyroxine 25 MCG TABLET PO SCH (05:06)
[2017-03-15] MEDS: Ipratropium/Albuterol Neb 3 ML IH SCH (05:12)
[2017-03-15 08:30] VITALS: BP 132/64
[2017-03-15] MEDS ORDERED: predniSONE 20 MG TABLET PO SCH (09:00)
[2017-03-15] MEDS: Furosemide 40 MG TABLET PO SCH (09:53)
[2017-03-15] MEDS: *HR* Acetylcysteine 20% 600 MG/3 ML ORAL SYRINGE PO SCH (09:53)
[2017-03-15] MEDS: amLODIPine 5 MG TABLET PO SCH (09:53)
[2017-03-15] MEDS: Calcium Acetate 667 MG CAPSULE PO SCH (09:54)
[2017-03-15] MEDS: Aspirin 81 MG TAB.CHEW PO SCH (09:54)
[2017-03-15] MEDS: Metoprolol XL (24 HR) Succ 50 MG TAB.ER.24H PO SCH (09:54)
[2017-03-15] MEDS ORDERED: levoFLOXacin 500 MG TABLET PO SCH (16:00)
== END 2017-03-15 10:55 | disposition home or self-care (01) | DRG 190 ==
LOC: EMEROO 15:24 → 2ANU 15:24 → SUATTDRO 22:59 → OBSVTOIN 22:59 → 2ANU 23:38
PROVIDERS: ADMIT Internal Medicine; ATTEND Internal Medicine

== ENCOUNTER 2017-11-22 08:43 | Inpatient (IN) ==
[2017-11-22] MEDS ORDERED: Ipratropium/Albuterol Neb 3 ML IH ONE (09:04)
[2017-11-22] MEDS ORDERED: methylPREDNISolone 125 MG/2 ML VIAL IVP ONE (09:04)
--- NOTE | 2017-11-22 09:07 | Emergency Department Note ---
Disposition Clinical Impression: Mucus plugging of bronchi Pneumonia Qualifiers: Pneumonia type: due to unspecified organism Laterality: left Lung location: lower lobe of lung Qualified Code(s): J18.1 - Lobar pneumonia, unspecified organism Disposition: Admitted As Inpatient Condition: Serious Referrals: Vladimir Chaidez MD [Primary Care Provider] - Forms: ED Satisfaction Letter Time of Disposition: 10:54 SOB HPI - General Chief Complaint: ED Shortness of Breath/Dyspnea Stated Complaint: LAKISHA Time Seen by Provider: 11/22/17 08:57 Source: patient Mode of arrival: ambulatory Limitations: no limitations Nursing Notes Reviewed: Yes Vital Signs Reviewed: Yes - History of Present Illness 77-year-old with history of renal failure on dialysis, last dialysis was yesterday comes in with increasing shortness of breath. Patient normally is on 3 L of home pulse ox normally runs 89-90 currently to 83%. Patient appears comfortable on arrival. Pt Subjective Complaint: shortness of breath Onset (ago): day(s) Context: other (History renal failure) Severity: moderate Consistency/Duration: constant Improves with: nothing Worsens with: exertion Known history of: COPD Associated symptoms: Reports: cough, wheezing Treatment prior to arrival: bronchodilator Cough present: Yes Cough Description: Involuntary Cough Frequency: Intermittent - Related Data Home Medications Medication Instructions Recorded Confirmed Albuterol Sulfate [Ventolin Hfa] 2 puff IH Q4H PRN 10/12/16 03/11/17 Allopurinol [Zyloprim] 100 mg PO DAILY 10/12/16 03/11/17 Aspirin 81 mg PO DAILY 10/12/16 03/11/17 Atorvastatin [Lipitor] 40 mg PO HS 10/12/16 03/11/17 Budesonide/Formoterol 160/4.5 2 puff IH BIDR 10/12/16 03/11/17 [Symbicort 160/4.5] Cholecalciferol (Vitamin D3) 2,000 unit PO DAILY 10/12/16 03/11/17 [Vitamin D3] Furosemide [Lasix] 20 mg PO QPM 10/12/16 03/11/17 Furosemide [Lasix] 40 mg PO QAM 10/12/16 03/11/17 Ipratropium [place] 2 spray NS BID 01/14/17 03/11/17 Levothyroxine [Synthroid] 25 mcg PO DAILY 01/14/17 03/11/17 Metoprolol XL (24 HR) Succ [Toprol 50 mg PO DAILY 01/14/17 03/11/17 Xl] Multivitamin [Multi-Day Vitamins] 1 tab PO DAILY 01/14/17 03/11/17 Acetylcysteine 600 mg PO TID 03/11/17 03/11/17 [R-[place]-w-Cysteine] HYDROcodone/Acet 5/325 mg [[place] 1 tab PO TID PRN 03/11/17 03/11/17 5-325 mg] Loratadine [Claritin] 10 mg PO DAILY 03/11/17 03/11/17 Sevelamer [Renvela] 1,600 mg PO TIDWM 03/11/17 03/11/17 Tizanidine HCl 4 mg PO TID PRN 03/11/17 03/11/17 Previous Rx's Medication Instructions Recorded Losartan [Cozaar] 50 mg PO BID #60 tablet 03/14/17 Pregabalin [Lyrica] 25 mg PO DAILY PRN #30 capsule 03/14/17 amLODIPine [Norvasc] 10 mg PO DAILY #30 tablet 03/14/17 levoFLOXacin [Levofloxacin] 500 mg PO Q48H #2 tablet 03/14/17 predniSONE [PredniSONE] 40 mg PO DAILY #7 tablet 03/14/17 Allergies Allergy/AdvReac Type Severity Reaction Status Date / Time codeine AdvReac Rash Verified 01/14/17 18:20 gabapentin AdvReac Itching Verified 01/14/17 18:20 All systems ED: reviewed and negative except as stated. Constitutional: Denies: fever, chills, weakness, weight change Eyes: Denies: eye pain, eye discharge, vision change ENT ED: Denies: ear pain, throat pain, dental pain, hearing loss, epistaxis, congestion, dysphagia Cardiovascular: Denies: chest pain, palpitations, dyspnea on exertion, edema, syncope Respiratory: Reports: cough, dyspnea. Denies: wheezes, hemoptysis, stridor Gastrointestinal: Denies: abdominal pain, nausea, vomiting, diarrhea, constipation, hematemesis, melena, hematochezia Genitourinary: Denies: dysuria, frequency, hematuria, discharge Musculoskeletal: Denies: back pain, neck pain, arthralgia, myalgia Integumentary: Denies: rash, abrasion, lesions Neurological: Denies: headache, weakness, numbness, paresthesias, confusion, abnormal gait, vertigo Psychiatric: Denies: anxiety, depression, suicidal thoughts, homicidal thoughts , auditory hallucinations, visual hallucinations Endocrine: Denies: fatigue Hematological/Lymphatic: Denies: easy bleeding, easy bruising Allergic/Immunologic: Denies: facial swelling, urticaria Past Medical History - Past Medical History Medical history: Reports: asthma, COPD, DVT, dialysis, hyperlipidemia, hypertension, osteoporosis, renal disease Surgical history: Reports: other Psychiatric history: Reports: no psych history - Social History Smoking Status: Former smoker Smokeless Tobacco Status: No Alcohol use: Reports: none Drug use: Reports: none Physical Exam - General Limitations: no limitations General appearance: alert, in no apparent distress - Head Head exam: atraumatic, normocephalic, normal inspection - Eye Eye exam: Present: normal appearance, PERRL, EOMI - ENT ENT exam: normal exam, normal oropharynx, mucous membranes moist - Neck Neck exam: Present: normal inspection, full ROM, trachea midline - Chest Chest inspection: Present: normal inspection, symmetric chest wall rise - Respiratory Respiratory exam: Present: wheezes, accessory muscle use, prolonged expiratory phase - Cardiovascular Cardiovascular exam: Present: regular rate, normal rhythm, normal heart sounds - Abdominal Exam Abdominal exam: Present: soft, Non-Tender. Absent: tenderness, distention, guarding, rebound, rigidity - Extremities Exam Extremities exam: Present: normal inspection, full ROM. Absent: tenderness, pedal edema - Expanded Lower Extremity Exam Neurovascular/Tendon exam: Absent: motor deficit, sensory deficit, tendon deficit Gait: observed and normal - Back Exam Back exam: Present: normal inspection, full ROM. Absent: tenderness - Neurological Exam Neurological exam: Present: alert, oriented X3 - Psychiatric Psychiatric exam: Present: normal affect, normal mood - Skin Skin exam: Present: warm, dry, intact, normal color Course - Consultations Consultation #1: Discussed with Dr. Mcgovern, will see in consult. Time: 10:44 Consultation #2: Discussed with jeremy for ATB dosing. Time: 10:44 Consultation #3: Discussed with Dr. Katz, admit. Time: 10:54 Vital Signs Temperature 97.8 F 11/22/17 08:43 Pulse Rate 69 02/13/18 08:43 Respiratory Rate 20 11/22/17 08:43 Blood Pressure 188/86 11/22/17 08:43 O2 Sat by Pulse Oximetry 81 11/22/17 08:43 Temperature 97.8 F 11/22/17 08:43 Pulse Rate 73 11/22/17 10:14 Respiratory Rate 18 11/22/17 10:14 Blood Pressure 192/89 11/22/17 10:14 O2 Sat by Pulse Oximetry 90 11/22/17 10:14 Oxygen Delivery Oxygen Delivery Nasal Cannula Shortness of Breath/Dyspnea - Lab Data Lab results reviewed: Yes I reviewed the patient's lab results. Result diagrams: 11/22/17 09:05 11/22/17 09:05 Lab Results 11/22/17 11/22/17 11/22/17 Range/Units 09:05 09:05 09:05 WBC 5.9 (4.3-11.1) K/mcL RBC 3.13 L (3.82-4.97) M/mcL Hgb 10.5 L (11.5-15.4) g/dL Hct 32.4 L (35.3-44.9) % MCV 103.5 H (83.0-100.0) fL MCH 33.5 H (28.0-33.3) pg MCHC 32.4 (31.6-35.5) g/dL RDW 14.6 H (11.5-14.5) % Plt Count 111 L (140-400) K/mcL MPV 10.4 (9.4-12.4) fL Immature Gran % 0.5 (0-4) % Seg Neutrophils % 82.5 % Lymphocytes % 8.9 % Monocytes % 7.4 % Eosinophils % 0.5 % Basophils % 0.2 % Neutrophils # 4.9 (1.6-8.9) K/mcL Lymphocytes # 0.5 L (0.6-4.6) K/mcL Monocytes # 0.4 (0.0-1.3) K/mcL Eosinophils # 0.0 (0.0-0.6) K/mcL Basophils # 0.0 (0.0-0.2) K/mcL Sodium 139 (136-145) mEq/L Potassium 5.1 (3.5-5.1) mEq/L Chloride 101 (98-107) mEq/L Carbon Dioxide 30 H (23-29) mEq/L BUN 38 H (8-23) mg/dL Creatinine 5.13 H (0.60-1.20) mg/dL Est GFR ( Amer) 10 L (> 60) Est GFR (Non-Af Amer) 8 L (> 60) BUN/Creatinine Ratio 7 (6-26) Glucose 93 (70-105) mg/dL Calculated Osmolality 297 (280-300) Lactic Acid 0.8 (0.5-2.2) mmol/L Calcium 10.1 (8.6-10.3) mg/dL Troponin I (< 0.04) ng/mL B-Natriuretic Peptide (Less than 100) pg/mL 11/22/17 11/22/17 Range/Units 09:05 09:05 WBC (4.3-11.1) K/mcL RBC (3.82-4.97) M/mcL Hgb (11.5-15.4) g/dL Hct (35.3-44.9) % MCV (83.0-100.0) fL MCH (28.0-33.3) pg MCHC (31.6-35.5) g/dL RDW (11.5-14.5) % Plt Count (140-400) K/mcL MPV (9.4-12.4) fL Immature Gran % (0-4) % Seg Neutrophils % % Lymphocytes % % Monocytes % % Eosinophils % % Basophils % % Neutrophils # (1.6-8.9) K/mcL Lymphocytes # (0.6-4.6) K/mcL Monocytes # (0.0-1.3) K/mcL Eosinophils # (0.0-0.6) K/mcL Basophils # (0.0-0.2) K/mcL Sodium (136-145) mEq/L Potassium (3.5-5.1) mEq/L Chloride (98-107) mEq/L Carbon Dioxide (23-29) mEq/L BUN (8-23) mg/dL Creatinine (0.60-1.20) mg/dL Est GFR ( Amer) (> 60) Est GFR (Non-Af Amer) (> 60) BUN/Creatinine Ratio (6-26) Glucose (70-105) mg/dL Calculated Osmolality (280-300) Lactic Acid (0.5-2.2) mmol/L Calcium (8.6-10.3) mg/dL Troponin I 0.03 (< 0.04) ng/mL B-Natriuretic Peptide > 5000 H (Less than 100) pg/mL - Radiology Data Radiology results reviewed: Yes I reviewed the patient's radiology results. Chest X-Ray 11/22/17 08:53 IMPRESSION: Near complete opacification of the left hemithorax, which is likely secondary to a large left pleural effusion with overlying atelectasis/ pneumonia. Consider further evaluation with chest CT, thoracentesis, or chest tube placement. D/ / Grey Kimball MD / Grey Kimball MD Interpreting Provider: Grey Kimball MD Chest CT 11/22/17 09:32 IMPRESSION: 1. Mucoid impaction of the distal left mainstem bronchus, which extends into the left upper and lower lobe bronchi, which are largely occluded. There is a large amount of postobstructive atelectasis/collapse of the left lung. Underlying pneumonia cannot be excluded and short-term CT follow-up is recommended to document resolution/improvement. Respiratory therapy consultation is also suggested. 2. Trace left pleural effusion. No thoracentesis or chest tube is indicated. D/ / Grey Kimball MD / Grey Kimball MD Interpreting Provider: Grey Kimball MD
[2017-11-22 09:21] LABS: Basophils % 0.2 %; Eosinophils % 0.5 %; Hematocrit 32.4 % (35.3-44.9); Hemoglobin 10.5 g/dL (11.5-15.4); Immature Granulocytes % 0.5 % (0-4); Lymphocytes # 0.5 K/mcL (0.6-4.6); Lymphocytes % 8.9 %; Mean Corpuscular HGB Conc 32.4 g/dL (31.6-35.5); Mean Corpuscular Hemoglobin 33.5 pg (28.0-33.3); Mean Corpuscular Volume 103.5 fL (83.0-100.0); Mean Platelet Volume 10.4 fL (9.4-12.4); Monocytes # 0.4 K/mcL (0.0-1.3); Monocytes % 7.4 %; Neutrophils # 4.9 K/mcL (1.6-8.9); Platelet Count 111 K/mcL (140-400); Red Blood Count 3.13 M/mcL (3.82-4.97); Red Cell Distribution Width 14.6 % (11.5-14.5); Segmented Neutrophils % 82.5 %
[2017-11-22 09:30] LABS: Calcium 10.1 mg/dL (8.6-10.3); Potassium 5.1 mEq/L (3.5-5.1)
[2017-11-22] MEDS ORDERED: Piperacillin/Tazobactam 3.375 GM in 0.9 % Sodium Chloride Mini Bag 100 ML IVPB ONE (10:45)
[2017-11-22 10:52] LABS: Prothrombin Time 10.7 Seconds (9.4-12.1)
[2017-11-22 10:55] LABS: Activated Partial Thrombo Time 29.5 Seconds (26.0-36.0)
--- NOTE | 2017-11-22 10:57 | Pulmonology Consult Note ---
Date of Encounter: 11/22/17 Time of Encounter: 10:45 Assessment and Plan (1) Collapse of left lung Current Visit: Yes Status: Acute This is most likely from the mucous plug in patient had bronchoscopy in the past and she will need bronchoscopy with chest physical therapy as well as bronchodilators. I have explained to patient all the risks, alternatives, benefits of the bronchoscopy and she understand and she agreed to have it done. (2) Mucus plugging of bronchi Current Visit: Yes Status: Acute Plan for bronchoscopy (3) Pneumonia Current Visit: Yes Status: Acute Underlying pneumonia cannot be ruled out most likely is postobstructive and broad-spectrum antibiotic to be started and this was discussed with the emergency room physician. Qualifiers: Pneumonia type: due to unspecified organism Laterality: left Lung location: lower lobe of lung Qualified Code(s): J18.1 - Lobar pneumonia, unspecified organism (4) Hypoxia Current Visit: No Status: Acute I am expecting To bronchoscopy patient will feel better and to keep SPO2 around 90%. (5) COPD (chronic obstructive pulmonary disease) Current Visit: No Status: Chronic Patient will be on bronchodilators. Qualifiers: COPD type: unspecified COPD Qualified Code(s): J44.9 - Chronic obstructive pulmonary disease, unspecified (6) ESRD on dialysis Current Visit: No Status: Chronic (7) Acute respiratory distress Current Visit: No Status: Acute This is multifactorial and I am expecting bronchoscopy would help. History of Present Illness Consult date: 11/22/17 Requesting physician: Rosalino Lopez Reason for consult: other (Mucus plug and left lung collapse) Chief complaint: Dyspnea History of present illness: This very pleasant 77-year-old female with multiple medical problems and she was found to be hypoxic and I was called by the emergency room physician due to abnormal findings on the CAT scan of the chest. I have evaluated patient in the emergency room and she is known to me from outpatient and she had bronchoscopy in the past with mucous plugs. Patient has underlying COPD and interstitial renal disease. The patient stated that she is more short of breath and her cough is worsened but she is not able to bring up significant sputum. She denies any significant wheezing and denies any hemoptysis and no significant chest pain. She is more short of breath and no significant fever or chills. Past Med Surg Social Fam HX - Past Medical History Medical history: asthma, COPD, DVT, dialysis, hyperlipidemia, hypertension, osteoporosis, renal disease Psychiatric history: no psych history - Past Surgical History Surgical History: other - Social History Smoking Status: Former smoker Smokeless Tobacco Status: No Alcohol use: none Drug use: none - Family History Mother Living Status: Hx Family Cardiac Disorders: No Hx Family Respiratory Disorders: No Hx Family Cancer: Yes (Colon) Hx Family GI Disorders: No Hx Family Endocrine Disorder: Yes (Borderline DM) Hx Family Neuromuscular Disorders: No Hx Family Neurologic Disorders: No Hx Family HEENT Disorders: No Hx Family Autoimmune Disorders: No Medications and Allergies Albuterol Sulfate [Ventolin Hfa] 2 puff IH Q4H PRN 10/12/16 [History] Allopurinol [Zyloprim] 100 mg PO DAILY 10/12/16 [History] Aspirin 81 mg PO DAILY 10/12/16 [History] Atorvastatin [Lipitor] 40 mg PO HS 10/12/16 [History] Budesonide/Formoterol 160/4.5 [Symbicort 160/4.5] 2 puff IH BIDR 10/12/16 [ History] Cholecalciferol (Vitamin D3) [Vitamin D3] 2,000 unit PO DAILY 10/12/16 [History] Furosemide [Lasix] 20 mg PO QPM 10/12/16 [History] Furosemide [Lasix] 40 mg PO QAM 10/12/16 [History] Ipratropium [place] 2 spray NS BID 01/14/17 [History] Levothyroxine [Synthroid] 25 mcg PO DAILY 01/14/17 [History] Metoprolol XL (24 HR) Succ [Toprol Xl] 50 mg PO DAILY 01/14/17 [History] Multivitamin [Multi-Day Vitamins] 1 tab PO DAILY 01/14/17 [History] Acetylcysteine [Y-Ruvvpr-i-Cysteine] 600 mg PO TID 03/11/17 [History] HYDROcodone/Acet 5/325 mg [[place] 5-325 mg] 1 tab PO TID PRN 03/11/17 [History] Loratadine [Claritin] 10 mg PO DAILY 03/11/17 [History] Sevelamer [Renvela] 1,600 mg PO TIDWM 03/11/17 [History] Tizanidine HCl 4 mg PO TID PRN 03/11/17 [History] Losartan [Cozaar] 50 mg PO BID #60 tablet 03/14/17 [Rx] amLODIPine [Norvasc] 10 mg PO DAILY #30 tablet 03/14/17 [Rx] Pregabalin [Lyrica] 50 mg PO BID 11/22/17 [History] 3 Allergy/AdvReac Type Severity Reaction Status Date / Time codeine Allergy Rash Verified 11/22/17 12:27 gabapentin Allergy Itching Verified 11/22/17 12:27 All Systems: A 10-system review of systems was performed and is negative for pertinent findings except as documented above in the HPI. Physical Examination Vital Signs: Vital Signs, Last 4 Hours Temp Pulse Resp BP Pulse Ox 11/22/17 10:14 73 18 192/89 90 11/22/17 09:21 90 11/22/17 08:49 89 11/22/17 08:43 97.8 F 69 20 188/86 81 General appearance: appears uncomfortable Eyes: nonicteric Mallampati (class): 2 Neck: supple Effort: mildly labored Inspection: hyperextended Auscultation: left: diminished breath sounds, right: rhonchi Percussion: left: dull Cardiovascular: regular rate and rhythm Gastrointestinal: normoactive bowel sounds, non-distended Extremities: no cyanosis, edema normal mental status, non-focal exam mood appropriate Results - Laboratory Findings CBC and BMP: 11/22/17 09:05 11/22/17 09:05 Abnormal lab findings: Abnormal lab results RBC 3.13 M/mcL (3.82-4.97) L 11/22/17 09:05 Hgb 10.5 g/dL (11.5-15.4) L 11/22/17 09:05 Hct 32.4 % (35.3-44.9) L 11/22/17 09:05 MCV 103.5 fL (83.0-100.0) H 11/22/17 09:05 MCH 33.5 pg (28.0-33.3) H 11/22/17 09:05 RDW 14.6 % (11.5-14.5) H 11/22/17 09:05 Plt Count 111 K/mcL (140-400) L 11/22/17 09:05 Lymphocytes # 0.5 K/mcL (0.6-4.6) L 11/22/17 09:05 Carbon Dioxide 30 mEq/L (23-29) H 11/22/17 09:05 BUN 38 mg/dL (8-23) H 11/22/17 09:05 Creatinine 5.13 mg/dL (0.60-1.20) H 11/22/17 09:05 Est GFR ( Amer) 10 (> 60) L 11/22/17 09:05 Est GFR (Non-Af Amer) 8 (> 60) L 11/22/17 09:05 B-Natriuretic Peptide > 5000 pg/mL (Less than 100) H 11/22/17 09:05 - Diagnostic Findings CT scan - chest: report reviewed, image reviewed - Clinical Findings Intake & Output: Intake & Output 11/21/17 11/22/17 11/22/17 23:59 07:59 15:59 Weight 66.678 kg Consult Discharge Plan - Plan
[2017-11-22] MEDS ORDERED: *HR* FentaNYL (PF) 100 MCG/2 ML VIAL IVP ONE (11:05)
[2017-11-22] MEDS ORDERED: *HR* EPINEPHrine 1 MG/10 ML SYRINGE INTRATRACH PRN (11:05)
[2017-11-22] MEDS ORDERED: Albuterol 2.5 MG/3 ML NEBULIZER IH ONE (11:05)
[2017-11-22] MEDS ORDERED: *HR* Midazolam HCl 2 MG/2 ML VIAL IVP ONE (11:05)
[2017-11-22] MEDS ORDERED: Lidocaine Viscous Oral Soln 15 ML SOLUTION MM ONE (11:05)
[2017-11-22] MEDS ORDERED: Tetracaine/Benzocaine/Butamben 200MG/SPRAY (100SPY/BOT) MM ONE (11:05)
--- NOTE | 2017-11-22 11:05 | Pre-Sedation Evaluation ---
Pre-sedation evaluation - Pre-sedation checklist Date of procedure: 11/22/17 Procedure: bronchoscopy Recent Vitals: Last Vital Signs Temp 97.8 F 11/22/17 08:43 Pulse 73 11/22/17 10:14 Resp 18 11/22/17 10:14 BP 192/89 11/22/17 10:14 Pulse Ox 90 11/22/17 10:14 H&P (including ROS) documented in medical record: Yes Previous reaction to sedatives/anesthetics: No Dietary Status: NPO after Midnight Dentition: dentures removed Possible difficult airway: No ASA Classification *see protocol: CLASS III-Severe systemic disease Plan of Care: Pt appropriate candidate for procedure/moderate/conscious sedation , Risks/benefits of procedure/sedation discussed w/ patient/family
[2017-11-22] MEDS ORDERED: *HR* FentaNYL (PF) 100 MCG/2 ML VIAL ONE (11:15)
[2017-11-22] MEDS ORDERED: *HR* Midazolam HCl 5 MG/5 ML VIAL IVP ONE (11:15)
[2017-11-22] MEDS ORDERED: Lidocaine Viscous Oral Soln 15 ML SOLUTION ONE (11:21)
[2017-11-22 12:33] LABS: Source of Body Fluid LEFT UPPER LOBE LUNG
--- NOTE | 2017-11-22 12:48 | Internal Med History&Physical ---
Date of Encounter: 11/22/17 Time of Encounter: 11:45 Assessment and Plan (1) Pneumonia involving left lung Current visit: Yes Status: Acute Patient has hypoxia, left lung atelectasis and possible underlying consultation as well as copious mucus secretion with complete obstruction of the distal left mainstem bronchus. Given her history of COPD I suspect pneumonia with gram- negative rods. Pneumococcal pneumonia also enters the differential. She will undergo bronchoscopy. We will follow up cultures and sensitivities. We will cover her empirically with Zosyn. We will check pneumococcal and Legionella antigen. Qualifiers: Pneumonia type: due to other aerobic Gram-negative bacteria Lung location: lower lobe of lung Qualified Code(s): J15.6 - Pneumonia due to other Gram- negative bacteria (2) Acute and chronic respiratory failure with hypoxia Current visit: Yes Status: Acute Oxygen by nasal cannula to maintain saturation above 92%. Pulmonary consult. Plan for BAL with pulmonary lavage. (3) Collapse of left lung Current visit: Yes Status: Acute Pulmonary is on board. We will plan to repeat chest x-ray post procedure. (4) Mucus plugging of bronchi Current visit: Yes Status: Acute (5) DVT prophylaxis Current visit: No Status: Acute Subcutaneous heparin (6) COPD (chronic obstructive pulmonary disease) Current visit: No Status: Chronic We will treat her with inhaled bronchodilators. Qualifiers: COPD type: unspecified COPD Qualified Code(s): J44.9 - Chronic obstructive pulmonary disease, unspecified (7) ESRD on dialysis Current visit: No Status: Chronic Continue hemodialysis Tuesday. Consult nephrology. (8) HTN (hypertension) Current visit: No Status: Chronic Resume home medications. Qualifiers: Hypertension type: essential hypertension Qualified Code(s): I10 - Essential (primary) hypertension Internal Medicine - H&P: HPI Chief complaint: Shortness of breath Admitted From: Emergency Dept Plans for Post Hospital Care: Home History of present illness: Ms. Carmona is a 77 year old female with past medical history significant for COPD, chronic hypoxic respiratory failure on home oxygen, essential hypertension , end-stage renal disease on hemodialysis Tuesday and Tuesday who presented to the hospital for evaluation of shortness of breath. She reports severe shortness of breath that started last night, much worse than her baseline dyspnea, worse with minimal exertion, improved with rest, associated with cough productive of clear phlegm. Denies associated fevers chills body aches sore throat and headache. She presented to the hospital this morning where she was found to be hypoxic with oxygen saturation 83%. Her workup was pertinent for mucous plugging of the left mainstem bronchus causing postobstructive atelectasis and collapse of the left lung as evidenced on a noncontrast CT of the chest. She was treated with IV antibiotics and referred for admission. Pulmonary service was consulted by the emergency department physician. A 10 point review of systems was negative except for decreased urination secondary to ESRD, back pain and cough or shortness of breath as above. Family history: Pertinent for patient's mother suffered with metastatic cancer. Social history: Former smoker, quit 30 years ago, denies alcohol and drug use. Lives at home independently. Past Med Surg Social Fam HX - Past Medical History Medical history: asthma, COPD, DVT, dialysis, hyperlipidemia, hypertension, osteoporosis, renal disease Psychiatric history: no psych history - Past Surgical History Surgical History: other - Social History Smoking Status: Former smoker Smokeless Tobacco Status: No Alcohol use: none Drug use: none - Family History Mother Living Status: Hx Family Cardiac Disorders: No Hx Family Respiratory Disorders: No Hx Family Cancer: Yes (Colon) Hx Family GI Disorders: No Hx Family Endocrine Disorder: Yes (Borderline DM) Hx Family Neuromuscular Disorders: No Hx Family Neurologic Disorders: No Hx Family HEENT Disorders: No Hx Family Autoimmune Disorders: No Internal Medicine - H&P: Meds Albuterol Sulfate [Ventolin Hfa] 2 puff IH Q4H PRN 10/12/16 [History] Allopurinol [Zyloprim] 100 mg PO DAILY 10/12/16 [History] Aspirin 81 mg PO DAILY 10/12/16 [History] Atorvastatin [Lipitor] 40 mg PO HS 10/12/16 [History] Budesonide/Formoterol 160/4.5 [Symbicort 160/4.5] 2 puff IH BIDR 10/12/16 [ History] Cholecalciferol (Vitamin D3) [Vitamin D3] 2,000 unit PO DAILY 10/12/16 [History] Furosemide [Lasix] 20 mg PO QPM 10/12/16 [History] Furosemide [Lasix] 40 mg PO QAM 10/12/16 [History] Ipratropium [place] 2 spray NS BID 01/14/17 [History] Levothyroxine [Synthroid] 25 mcg PO DAILY 01/14/17 [History] Metoprolol XL (24 HR) Succ [Toprol Xl] 50 mg PO DAILY 01/14/17 [History] Multivitamin [Multi-Day Vitamins] 1 tab PO DAILY 01/14/17 [History] Acetylcysteine [M-Diywjz-j-Cysteine] 600 mg PO TID 03/11/17 [History] HYDROcodone/Acet 5/325 mg [[place] 5-325 mg] 1 tab PO TID PRN 03/11/17 [History] Loratadine [Claritin] 10 mg PO DAILY 03/11/17 [History] Sevelamer [Renvela] 1,600 mg PO TIDWM 03/11/17 [History] Tizanidine HCl 4 mg PO TID PRN 03/11/17 [History] Losartan [Cozaar] 50 mg PO BID #60 tablet 03/14/17 [Rx] amLODIPine [Norvasc] 10 mg PO DAILY #30 tablet 03/14/17 [Rx] Pregabalin [Lyrica] 50 mg PO BID 11/22/17 [History] 3 Allergy/AdvReac Type Severity Reaction Status Date / Time codeine Allergy Rash Verified 11/22/17 12:27 gabapentin Allergy Itching Verified 11/22/17 12:27 All Systems PM: A 10-system review of systems was performed and is negative for pertinent findings except as documented above in the HPI. - Constitutional Vitals: Temp Pulse Resp BP Pulse Ox 97.8 F 79 16 184/93 95 11/22/17 12:20 11/22/17 12:20 11/22/17 12:20 11/22/17 12:20 11/22/17 12:20 - Eye Eye exam: Present: PERRL, conjuntiva pink, sclera anicteric Pupils: Present: PERRL - Neck Neck exam general surgery: Present: supple, trachea midline. Absent: lymphadenopathy - Respiratory Respiratory exam: Present: rales. Absent: accessory muscle use, rhonchi, wheezes, tachypnea Additional comments: Decreased breath sounds over the left lung field - Cardiovascular Cardiovascular exam: Present: RRR, +S1, +S2. Absent: diastolic murmur, gallop, rubs, systolic murmur - GI/Abdominal GI/Abdominal exam: Present: normal bowel sounds, soft, no peritoneal signs. Absent: distended, tenderness - Extremities Exam Extremities exam: Present: pedal edema, warm, radial pulses palpable and symmetrical. Absent: calf tenderness, cyanotic - Neurological Exam Neurological exam: Present: CN II-XII intact, oriented X3, no focal deficits. Absent: pronater drift, facial droop, speech deficit - Skin Skin exam: Present: dry, intact Internal Med - H&P Results - Labs CBC & Chem 7: 11/22/17 09:05 11/22/17 09:05 - EKG Data -: EKG Interpreted by Myself EKG shows normal: sinus rhythm, intervals, QRS complexes (Left axis deviation), ST-T waves - Impressions CT of the chest personally reviewed shows almost complete atelectasis of the left lung secondary to obstruction of the left mainstem bronchus. Right lung with no acute disease.
[2017-11-22] MEDS ORDERED: *HR* HYDROcodone/Acet 5/325 mg TABLET PO PRN (13:06)
[2017-11-22] MEDS ORDERED: tiZANidine 4 MG TABLET PO PRN (13:06)
[2017-11-22] MEDS ORDERED: Ipratropium/Albuterol Neb 3 ML IH PRN (13:14)
[2017-11-22] MEDS: amLODIPine 5 MG TABLET PO SCH (14:49)
[2017-11-22] MEDS: Furosemide 40 MG TABLET PO SCH (14:49)
[2017-11-22] MEDS: Metoprolol XL (24 HR) Succ 50 MG TAB.ER.24H PO SCH (14:49)
[2017-11-22] MEDS: Pregabalin 50 MG CAPSULE PO SCH (14:49)
[2017-11-22] MEDS: 0.9 % Sodium Chloride 1,000 ML IVC SCH ×2 (14:52→19:26)
[2017-11-22] MEDS: *HR* Heparin 5,000 UNIT/ML VIAL SQ SCH (16:45)
[2017-11-22] MEDS: Furosemide 20 MG TABLET PO SCH (16:45)
[2017-11-22] MEDS: *HR* Acetylcysteine 20% 600 MG/3 ML ORAL SYRINGE PO SCH ×2 (16:45→21:46)
--- NOTE | 2017-11-22 18:24 | Electrocardiograph Report ---
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
[2017-11-22 19:48] LABS: Appearance of Body Fluid Cloudy (Clear); Volume of Body Fluid 7 mL
[2017-11-22 20:45] LABS: Hepatitis B Surface Antigen Nonreactive (Nonreactive)
[2017-11-22] MEDS: Budesonide/Formoterol 160/4.5 MDI IH SCH (21:20)
[2017-11-23 01:42] LABS: Hepatitis B Surface Antibody 1.76 mIU/mL
[2017-11-23] MEDS: *HR* Heparin 5,000 UNIT/ML VIAL SQ SCH ×2 (05:30→17:58)
[2017-11-23 07:05] LABS: Immature Granulocytes % 0.6 % (0-4)
[2017-11-23 07:14] LABS: Basophils % 0.1 %; Hematocrit 26.6 % (35.3-44.9); Hemoglobin 8.8 g/dL (11.5-15.4); Immature Platelets 3.3 % (1.1-6.1); Lymphocytes # 0.7 K/mcL (0.6-4.6); Lymphocytes % 10.8 %; Mean Corpuscular HGB Conc 33.1 g/dL (31.6-35.5); Mean Corpuscular Hemoglobin 33.8 pg (28.0-33.3); Mean Corpuscular Volume 102.3 fL (83.0-100.0); Mean Platelet Volume 11.1 fL (9.4-12.4); Monocytes # 0.5 K/mcL (0.0-1.3); Monocytes % 8.1 %; Neutrophils # 5.4 K/mcL (1.6-8.9); Red Cell Distribution Width 15.1 % (11.5-14.5); Segmented Neutrophils % 80.4 %
[2017-11-23 07:27] LABS: Calcium 9.7 mg/dL (8.6-10.3); Potassium 6.1 mEq/L (3.5-5.1)
[2017-11-23 07:56] LABS: Platelet Count 97 K/mcL (140-400)
[2017-11-23] MEDS ORDERED: 0.9 % Sodium Chloride 250 ML IVC PRN (08:41)
[2017-11-23] MEDS ORDERED: 0.9 % Sodium Chloride 1,000 ML PRIME SCH (08:45)
[2017-11-23] MEDS: Metoprolol XL (24 HR) Succ 50 MG TAB.ER.24H PO SCH (08:49)
[2017-11-23] MEDS: amLODIPine 5 MG TABLET PO SCH (08:49)
[2017-11-23] MEDS ORDERED: Levothyroxine 25 MCG TABLET PO SCH ×2 (09:00→09:23)
--- NOTE | 2017-11-23 09:08 | Internal Med Progress Note ---
<Keegan Malave - Last Filed: 11/23/17 09:55> Date of Encounter: 11/23/17 Time of Encounter: 09:06 - Assessment and plan (1) Acute and chronic respiratory failure with hypoxia Current Visit: Yes Status: Acute Assessment and plan: Secondary to pneumonia as discussed below. Patient's states that she uses oxygen intermittently at home. We will continue oxygen supplementation and titrate to achieve oxygen saturation of 88-92%. (2) Pneumonia involving left lung Current Visit: Yes Status: Acute Assessment and plan: Patient has signs and symptoms of pneumonia with thick mucus plugging seen on bronchoscopy. Gram stain from BAL shows gram-negative rods. Culture is pending. Continue Zosyn for empiric therapy until culture results are returned. We will add chest percussive therapy, scheduled bronchodilators, and Mucinex to assist with secretion clearance. (3) Congestive heart failure Current Visit: No Status: Chronic Assessment and plan: Stable. No evidence of acute exacerbation. Continue home Lasix. (4) Mucus plugging of bronchi Current Visit: Yes Status: Acute Assessment and plan: Much improved status post bronchoscopy. Chest percussion therapy and bronchodilators along with Mucinex to assist in secretion clearance as above. (5) ESRD on dialysis Current Visit: No Status: Chronic Assessment and plan: Continue with Tuesday, Tuesday, Tuesday hemodialysis sessions. Nephrology is following and we appreciate their assistance in continuing the patient's dialysis was an inpatient. (6) Anemia Current Visit: Yes Status: Acute Assessment and plan: Patient has an anemia of 8.8 today and is macrocytic. This is likely multifactorial due to patient's underlying ESRD but cannot exclude iron deficiency, B12 or folate deficiency. Will check iron panel, folate, B12, methylmalonic acid. - Subjective Interval history: Patient seen and examined at bedside. She states that she feels better compared to when she arrived at the hospital. She feels like she is breathing better. She reports persistent cough with occasional mucus production. She denies fever, chills. - Constitutional Vitals: Temp Pulse Resp BP Pulse Ox 98.3 F 71 16 169/57 93 11/23/17 07:00 11/23/17 07:00 11/23/17 07:00 11/23/17 07:00 11/23/17 07:00 General appearance: Present: A&O X 3, pleasant, no acute distress - Respiratory Respiratory exam: Present: rhonchi (Bilaterally, left greater than right). Absent: rales, respiratory distress, wheezes, tachypnea - Cardiovascular Cardiovascular exam: Present: RRR. Absent: gallop, rubs, systolic murmur - GI/Abdominal GI/Abdominal exam: Present: normal bowel sounds, soft. Absent: distended, tenderness - Extremities Exam Extremities exam: Present: warm. Absent: pedal edema, tenderness - Neurological Exam Neurological exam: Present: alert, CN II-XII intact, oriented X3, no focal deficits Internal Medicine: Result - Labs CBC & Chem 7: 11/23/17 06:32 11/23/17 06:32 Labs: Short CBC 11/23/17 Range/Units 06:32 WBC 6.7 (4.3-11.1) K/mcL Hgb 8.8 L D (11.5-15.4) g/dL Hct 26.6 L (35.3-44.9) % Plt Count 97 L (140-400) K/mcL Neutrophils # 5.4 (1.6-8.9) K/mcL BMP 11/23/17 06:32 Sodium 137 Potassium 6.1 H Chloride 101 Carbon Dioxide 27 BUN 60 H Creatinine 6.32 H Glucose 105 Calcium 9.7 - ABG Interpretation ABG results: PT/INR, D-dimer PT 10.7 Seconds (9.4-12.1) 11/22/17 09:09 - Impressions Impressions Chest X-Ray 11/22/17 14:00 IMPRESSION: Marked improved aeration of the left hemithorax. Small left pleural effusion with adjacent atelectasis is not excluded. There are patchy residual interstitial opacities in left mid to upper lung as well. No pneumothorax. D/ / 11/22/2017 15:55:19 Tresa Kraus MD / shawanda Interpreting Provider: Tresa Kraus MD Consult Discharge Plan - Plan Referrals: Vladimir Chaidez MD [Primary Care Provider] - (web request 11/23/2017) <Barrie Bautista H - Last Filed: 11/23/17 10:39> Date of Encounter: 11/23/17 - Constitutional Vitals: Temp Pulse Resp BP Pulse Ox 98.3 F 71 16 169/57 93 11/23/17 07:00 11/23/17 07:00 11/23/17 07:00 11/23/17 07:00 11/23/17 07:00 Internal Medicine: Result - Labs CBC & Chem 7: 11/23/17 06:32 11/23/17 06:32 Labs: Short CBC 11/23/17 Range/Units 06:32 WBC 6.7 (4.3-11.1) K/mcL Hgb 8.8 L D (11.5-15.4) g/dL Hct 26.6 L (35.3-44.9) % Plt Count 97 L (140-400) K/mcL Neutrophils # 5.4 (1.6-8.9) K/mcL BMP 11/23/17 06:32 Sodium 137 Potassium 6.1 H Chloride 101 Carbon Dioxide 27 BUN 60 H Creatinine 6.32 H Glucose 105 Calcium 9.7 - ABG Interpretation ABG results: PT/INR, D-dimer PT 10.7 Seconds (9.4-12.1) 11/22/17 09:09 - Impressions Impressions Chest X-Ray 11/22/17 14:00 IMPRESSION: Marked improved aeration of the left hemithorax. Small left pleural effusion with adjacent atelectasis is not excluded. There are patchy residual interstitial opacities in left mid to upper lung as well. No pneumothorax. D/ / 11/22/2017 15:55:19 Tresa Kraus MD / shawanda Interpreting Provider: Tresa Kraus MD - Attending Attestation Acute hypoxic respiratory failure secondary to community-acquired pneumonia and thick mucus plugging on the left lung Continue Zosyn until culture is available History of diastolic CHF, stable no exacerbation I examined this patient and my medical decision-making was reviewed with the Resident Physician. I agree with the documented findings, disposition and treatment plan as described except to the extent set forth below.
[2017-11-23] MEDS: Aspirin 81 MG TAB.CHEW PO SCH (09:33)
[2017-11-23] MEDS: Loratadine 10 MG TABLET PO SCH (09:33)
[2017-11-23] MEDS: Pregabalin 50 MG CAPSULE PO SCH (09:33)
[2017-11-23] MEDS: Furosemide 40 MG TABLET PO SCH (09:34)
[2017-11-23] MEDS: *HR* Acetylcysteine 20% 600 MG/3 ML ORAL SYRINGE PO SCH ×3 (09:35→20:21)
--- NOTE | 2017-11-23 10:02 | Nephrology Consult Note ---
Date of Encounter: 11/23/17 Time of Encounter: 08:55 Assessment and Plan (1) ESRD on dialysis Current Visit: No Status: Chronic S/P bronch-mucous plug. ESRD-HD today, keeping MWF scedule. Orders given. Will start on Hydralazine 25mg BID for SBP 160-170. History of Present Illness - Reason for Consult end stage renal disease - History of Present Illness Ms. Carmona is a 77 year old female with ESRD who dialyzes at [facility] on MWF, last dialysis on Tuesday. Other PMH-asthma, COPD, DVT, hyperlipidemia, hypertension, osteoporosis. Ms. Carmona presented yesterday with increasing SOB, O2 sat 83%. On home O2, normally runs 89-90 %. Chest CT-Mucoid impaction of the distal left mainstem bronchus, which extends into the left upper and lower lobe bronchi, which are largely occluded. There is a large amount of postobstructive atelectasis/collapse of the left lung. She was taken for bronch. This morning she is sitting up in bed, loose cough. States breathing much easier. Past Med Surg Social Fam HX - Past Medical History Medical history: asthma, COPD, DVT, dialysis, hyperlipidemia, hypertension, osteoporosis, renal disease Psychiatric history: no psych history - Past Surgical History Surgical History: other - Social History Smoking Status: Former smoker Smokeless Tobacco Status: No Alcohol use: none Drug use: none - Family History Mother Living Status: Hx Family Cardiac Disorders: No Hx Family Respiratory Disorders: No Hx Family Cancer: Yes (Colon) Hx Family GI Disorders: No Hx Family Endocrine Disorder: Yes (Borderline DM) Hx Family Neuromuscular Disorders: No Hx Family Neurologic Disorders: No Hx Family HEENT Disorders: No Hx Family Autoimmune Disorders: No Medications and Allergies Albuterol Sulfate [Ventolin Hfa] 2 puff IH Q4H PRN 10/12/16 [History] Allopurinol [Zyloprim] 100 mg PO DAILY 10/12/16 [History] Aspirin 81 mg PO DAILY 10/12/16 [History] Atorvastatin [Lipitor] 40 mg PO HS 10/12/16 [History] Budesonide/Formoterol 160/4.5 [Symbicort 160/4.5] 2 puff IH BIDR 10/12/16 [ History] Cholecalciferol (Vitamin D3) [Vitamin D3] 2,000 unit PO DAILY 10/12/16 [History] Furosemide [Lasix] 20 mg PO QPM 10/12/16 [History] Furosemide [Lasix] 40 mg PO QAM 10/12/16 [History] Ipratropium [place] 2 spray NS BID 01/14/17 [History] Levothyroxine [Synthroid] 25 mcg PO DAILY 01/14/17 [History] Metoprolol XL (24 HR) Succ [Toprol Xl] 50 mg PO DAILY 01/14/17 [History] Multivitamin [Multi-Day Vitamins] 1 tab PO DAILY 01/14/17 [History] Acetylcysteine [E-Kfjzmn-f-Cysteine] 600 mg PO TID 03/11/17 [History] HYDROcodone/Acet 5/325 mg [[place] 5-325 mg] 1 tab PO TID PRN 03/11/17 [History] Loratadine [Claritin] 10 mg PO DAILY 03/11/17 [History] Sevelamer [Renvela] 1,600 mg PO TIDWM 03/11/17 [History] Tizanidine HCl 4 mg PO TID PRN 03/11/17 [History] Losartan [Cozaar] 50 mg PO BID #60 tablet 03/14/17 [Rx] amLODIPine [Norvasc] 10 mg PO DAILY #30 tablet 03/14/17 [Rx] Pregabalin [Lyrica] 50 mg PO BID 11/22/17 [History] 3 Allergy/AdvReac Type Severity Reaction Status Date / Time codeine Allergy Rash Verified 11/22/17 12:27 gabapentin Allergy Itching Verified 11/22/17 12:27 Review of Systems All Systems: reviewed and no additional remarkable complaints except as stated Exam - Vital Signs Vital signs: Initial Vital Signs Temp Pulse Resp BP Pulse Ox 97.8 F 69 20 188/86 81 11/22/17 08:43 11/22/17 08:43 11/22/17 08:43 11/22/17 08:43 11/22/17 08:43 Vital Signs - Last 8 Hours Temp Pulse Resp BP Pulse Ox 11/23/17 07:00 98.3 F 71 16 169/57 93 11/23/17 03:54 97.9 F 76 16 164/66 90 Intake and Output 11/22/17 11/23/17 11/23/17 23:59 07:59 15:59 Intake Total 600 / 600 240 / 240 Balance 600 / 600 240 / 240 Intake: Oral 600 / 600 240 / 240 Other: Meal Breakfast Percent of Meal Consumed 75% Weight 68.152 kg Patient Weight 11/23/17 23:59 Weight 68.152 kg - General Appearance General appearance: well-developed, well-nourished, appears started age EENT: mucous membranes moist Neck: no JVD Respiratory: clear Additional Comments: diminished Cardiology: edema, regular rate, regular rhythm Additional Comments: chronic ankle/LE, 2/6 sys murmur Gastrointestinal: normoactive bowel sounds, no tenderness Integumentary: warm and dry Neurologic: alert and oriented x3 Results - Lab Results 11/23/17 06:32 11/23/17 06:32 Most recent lab results Calcium 9.7 mg/dL (8.6-10.3) 11/23/17 06:32 Consult Discharge Plan - Plan Referrals: Vladimir Chaidez MD [Primary Care Provider] -
[2017-11-23] MEDS: Budesonide/Formoterol 160/4.5 MDI IH SCH ×2 (10:41→20:00)
[2017-11-23] MEDS: Ipratropium/Albuterol Neb 3 ML IH SCH ×3 (10:41→20:00)
[2017-11-23] MEDS ORDERED: 0.9 % Sodium Chloride 1,000 ML ONE (11:10)
[2017-11-23] MEDS: Acetaminophen 325 MG TABLET PO PRN (14:52)
[2017-11-23] MEDS: Furosemide 20 MG TABLET PO SCH (17:58)
[2017-11-23] MEDS: hydrALAZINE 25 MG TABLET PO SCH (20:20)
[2017-11-24] MEDS: Ipratropium/Albuterol Neb 3 ML IH SCH ×5 (00:48→15:46)
[2017-11-24] MEDS: Acetaminophen 325 MG TABLET PO PRN ×2 (04:09→09:55)
[2017-11-24 05:05] LABS: Basophils % 0.3 %; Eosinophils # 0.1 K/mcL (0.0-0.6); Eosinophils % 0.8 %; Hematocrit 27.2 % (35.3-44.9); Immature Granulocytes % 0.5 % (0-4); Lymphocytes # 1.1 K/mcL (0.6-4.6); Lymphocytes % 16.2 %; Mean Corpuscular HGB Conc 33.1 g/dL (31.6-35.5); Mean Corpuscular Hemoglobin 33.5 pg (28.0-33.3); Mean Corpuscular Volume 101.1 fL (83.0-100.0); Mean Platelet Volume 10.7 fL (9.4-12.4); Monocytes # 0.4 K/mcL (0.0-1.3); Monocytes % 6.7 %; Platelet Count 102 K/mcL (140-400); Red Blood Count 2.69 M/mcL (3.82-4.97); Red Cell Distribution Width 15.4 % (11.5-14.5); Segmented Neutrophils % 75.5 %
[2017-11-24 05:34] LABS: Calcium 9.7 mg/dL (8.6-10.3); Potassium 4.7 mEq/L (3.5-5.1)
[2017-11-24 05:50] LABS: Vitamin B12 498 pg/mL (250-1100)
[2017-11-24 05:53] LABS: Folate > 22.3 ng/mL (3.0-16.0)
[2017-11-24 06:09] LABS: % Iron Saturation 11 % (15-50); Ferritin 1272 ng/ml (10-120); Iron 30 mcg/dL (50-170); Transferrin 200 mg/dL (203-362)
[2017-11-24] MEDS: *HR* Heparin 5,000 UNIT/ML VIAL SQ SCH (06:37)
[2017-11-24] MEDS: Budesonide/Formoterol 160/4.5 MDI IH SCH (07:50)
--- NOTE | 2017-11-24 08:11 | Internal Med Progress Note ---
<Jarad Hickey - Last Filed: 11/24/17 15:59> Date of Encounter: 11/24/17 Time of Encounter: 08:09 - Assessment and plan (1) Acute and chronic respiratory failure with hypoxia Current Visit: Yes Status: Acute Assessment and plan: Likely secondary to to pneumonia and mucus plugging Home oxygen use at night Continue oxygen supplementation and titrate to achieve oxygen saturation of 88- 92%. (2) Pneumonia involving left lung Current Visit: Yes Status: Acute Assessment and plan: Patient has signs and symptoms of pneumonia with thick mucus plugging seen on bronchoscopy. Cultures show Serratia marcescens D/C zosyn Start cefdinir Qualifiers: Pneumonia type: due to other aerobic Gram-negative bacteria Lung location: lower lobe of lung Qualified Code(s): J15.6 - Pneumonia due to other Gram- negative bacteria (3) Mucus plugging of bronchi Current Visit: Yes Status: Acute Assessment and plan: Patient has significantly improved after bronchoscopy Continue with chest percussion therapy Continue bronchodilators Continue with Mucines to facilitate cleanace of the mucus Avoid antitussive agents (4) Congestive heart failure Current Visit: No Status: Chronic Assessment and plan: 1+ pitting edema in bilateral lower extremities Continue home Lasix. (5) ESRD on dialysis Current Visit: No Status: Chronic Assessment and plan: Nephrology has been consulted and is following the patient Continue with Tuesday, Tuesday, Tuesday hemodialysis sessions. (6) Anemia Current Visit: Yes Status: Acute Assessment and plan: Patient has an anemia of 9.0 today and is macrocytic. This appears to be stable and is likely secondary to ESRD and is mulifactorial Qualifiers: Anemia type: unspecified type Qualified Code(s): D64.9 - Anemia, unspecified - Time Spent With Patient Greater than 35 minutes (40) - Subjective Interval history: Patient states that she feels like her breathing has improved significantly since having a bronchoscopy and mucous plug removed. States that she is still coughing and is only coughing up small amounts of phlegm. Patient denies any chest pain or abdominal pain at this time. Patient does state that she has had a headache this morning. - Constitutional Vitals: Temp Pulse Resp BP Pulse Ox 97.8 F 74 17 164/72 91 11/24/17 07:00 11/24/17 07:00 11/24/17 07:50 11/24/17 07:00 11/24/17 07:50 General appearance: Present: A&O X 3, pleasant, no acute distress - Head Head exam: Present: atraumatic, normocephalic - Neck Neck exam general surgery: Present: full ROM, normal inspection, trachea midline - Respiratory Respiratory exam: Present: wheezes (Bilaterally) Additional comments: Patient wearing nasal cannula at 3.5 L - Cardiovascular Cardiovascular exam: Present: RRR, +S1, +S2. Absent: diastolic murmur, gallop, rubs, systolic murmur - GI/Abdominal GI/Abdominal exam: Present: normal bowel sounds, soft, no peritoneal signs. Absent: distended, tenderness - Extremities Exam Extremities exam: Present: pedal edema (1+ pitting edema) - Neurological Exam Neurological exam: Present: oriented X3, no focal deficits. Absent: facial droop, speech deficit - Skin Skin exam: Present: dry, intact, warm Internal Medicine: Result - Labs CBC & Chem 7: 11/24/17 04:43 11/24/17 04:43 Labs: Short CBC 11/24/17 Range/Units 04:43 WBC 6.6 (4.3-11.1) K/mcL Hgb 9.0 L (11.5-15.4) g/dL Hct 27.2 L (35.3-44.9) % Plt Count 102 L (140-400) K/mcL Neutrophils # 5.0 (1.6-8.9) K/mcL BMP 11/24/17 04:43 Sodium 137 Potassium 4.7 Chloride 100 Carbon Dioxide 28 BUN 35 H Creatinine 4.61 H Glucose 98 Calcium 9.7 - ABG Interpretation ABG results: PT/INR, D-dimer PT 10.7 Seconds (9.4-12.1) 11/22/17 09:09 Consult Discharge Plan - Plan Additional Instructions: Please follow up with her primary care provider at the next available appointment Please take your Cefdinir antibiotic after dialysis for 4 doses. Take one pill after dialysis on Tuesday, Tuesday, Tuesday and Tuesday. Use Tessalon pearls and Mucinex as directed. Referrals: Vladimir Chaidez MD [Primary Care Provider] - (web request 11/23/2017) Prescriptions: Benzonatate [Tessalon] 100 mg PO TID PRN #12 capsule PRN Reason: Cough Cefdinir [Omnicef] 300 mg PO DAILY #4 capsule Guaifenesin [Mucinex] 600 mg PO BID PRN #8 tab.er.12h PRN Reason: Cough/Congestion <Barrie Bautista H - Last Filed: 11/24/17 16:14> Date of Encounter: 11/24/17 - Constitutional Vitals: Temp Pulse Resp BP Pulse Ox 97.4 F L 79 20 160/72 92 11/24/17 12:06 11/24/17 12:06 11/24/17 15:47 11/24/17 12:06 11/24/17 15:47 Internal Medicine: Result - Labs CBC & Chem 7: 11/24/17 04:43 11/24/17 04:43 Labs: Short CBC 11/24/17 Range/Units 04:43 WBC 6.6 (4.3-11.1) K/mcL Hgb 9.0 L (11.5-15.4) g/dL Hct 27.2 L (35.3-44.9) % Plt Count 102 L (140-400) K/mcL Neutrophils # 5.0 (1.6-8.9) K/mcL BMP 11/24/17 04:43 Sodium 137 Potassium 4.7 Chloride 100 Carbon Dioxide 28 BUN 35 H Creatinine 4.61 H Glucose 98 Calcium 9.7 - ABG Interpretation ABG results: PT/INR, D-dimer PT 10.7 Seconds (9.4-12.1) 11/22/17 09:09 - Impressions Impressions Chest X-Ray 11/22/17 14:00 IMPRESSION: Marked improved aeration of the left hemithorax. Small left pleural effusion with adjacent atelectasis is not excluded. There are patchy residual interstitial opacities in left mid to upper lung as well. No pneumothorax. D/ / 11/22/2017 15:55:19 Tresa Kraus MD / shawanda Interpreting Provider: Tresa Kraus MD - Attending Attestation Discharge home today I examined this patient and my medical decision-making was reviewed with the Resident Physician. I agree with the documented findings, disposition and treatment plan as described except to the extent set forth below.
[2017-11-24] MEDS: Metoprolol XL (24 HR) Succ 50 MG TAB.ER.24H PO SCH (08:38)
[2017-11-24] MEDS: amLODIPine 5 MG TABLET PO SCH (08:38)
[2017-11-24] MEDS: Loratadine 10 MG TABLET PO SCH (08:38)
[2017-11-24] MEDS: Pregabalin 50 MG CAPSULE PO SCH (08:38)
[2017-11-24] MEDS: Furosemide 40 MG TABLET PO SCH (08:38)
[2017-11-24] MEDS: hydrALAZINE 25 MG TABLET PO SCH (08:38)
[2017-11-24] MEDS: Aspirin 81 MG TAB.CHEW PO SCH (08:38)
[2017-11-24] MEDS: *HR* Acetylcysteine 20% 600 MG/3 ML ORAL SYRINGE PO SCH ×2 (08:39→15:20)
[2017-11-24] MEDS ORDERED: hydrALAZINE 25 MG TABLET PO SCH (09:45)
--- NOTE | 2017-11-24 10:54 | Nephrology Progress Note ---
Date of Encounter: 11/24/17 Time of Encounter: 10:15 - Assessment and Plan (1) ESRD on dialysis Current Visit: No Status: Chronic S/P bronch-mucous plug. ESRD-No HD today, keeping MWF schedule. SBP 160-180, remains elevated despite starting on Hydralazine 25 mg BID yesterday. Will increase dose 50 mg BID. Subjective Interval history: Sitting upright in bed, states more SOB. Tight wheeze on auscultation. Nursing staff alerted. Objective - Vital Signs Vital signs: Vital Signs Temp Pulse Resp BP Pulse Ox 11/24/17 10:42 17 91 11/24/17 07:50 17 91 11/24/17 07:00 97.8 F 74 18 164/72 92 11/24/17 04:07 98.1 F 81 17 185/96 89 11/24/17 03:48 20 90 11/24/17 00:48 18 93 11/23/17 23:31 98.2 F 76 16 176/85 90 11/23/17 20:00 20 90 11/23/17 18:41 98.7 F 75 16 156/71 91 11/23/17 16:16 16 93 11/23/17 15:00 98.0 F 69 16 145/78 93 11/23/17 12:53 97.5 F L 18 162/78 11/23/17 12:20 168/78 11/23/17 12:05 169/76 11/23/17 11:50 167/78 11/23/17 11:35 168/83 11/23/17 11:20 154/74 11/23/17 11:05 160/76 Intake and Output 11/23/17 11/24/17 11/24/17 23:59 07:59 15:59 Intake Total 100 / 100 100 / 100 100 / 100 Balance 100 / 100 100 / 100 100 / 100 Intake: IV Fluids 100 / 100 100 / 100 Zosyn 3.375 GM In 0.9 % Sodium 100 / 100 100 / 100 Chloride 100 ML @ 25 mls/hr IVPB Q12H [facility] Rx#:[id number] Oral 100 / 100 Other: Weight 66.587 kg Patient Weight 11/24/17 23:59 Weight 66.587 kg - General Appearance General appearance: Present: well-developed, well-nourished, appears started age EENT: Present: mucous membranes moist Neck: Present: no JVD Respiratory: Present: wheezing Cardiology: Present: edema, regular rate, regular rhythm Gastrointestinal: Present: normoactive bowel sounds, no tenderness Integumentary: Present: warm and dry Neurologic: Present: alert and oriented x3 - Lab 11/24/17 04:43 11/24/17 04:43 Most recent lab results Calcium 9.7 mg/dL (8.6-10.3) 11/24/17 04:43 Consult Discharge Plan - Plan Referrals: Vladimir Chaidez MD [Primary Care Provider] - (web request 11/23/2017)
--- NOTE | 2017-11-24 15:39 | Discharge Summary ---
<Jarad Hickey - Last Filed: 11/24/17 16:00> Date of Encounter: 11/24/17 Time of Encounter: 15:34 - Discharge Diagnosis (1) Acute and chronic respiratory failure with hypoxia Priority: Primary Status: Acute (2) Pneumonia involving left lung Priority: Primary Status: Acute Qualifiers: Pneumonia type: due to other aerobic Gram-negative bacteria Lung location: lower lobe of lung Qualified Code(s): J15.6 - Pneumonia due to other Gram- negative bacteria (3) Mucus plugging of bronchi Priority: Primary Status: Acute (4) Congestive heart failure Priority: Secondary Status: Chronic (5) ESRD on dialysis Priority: Secondary Status: Chronic (6) Anemia Priority: Secondary Status: Acute Qualifiers: Anemia type: unspecified type Qualified Code(s): D64.9 - Anemia, unspecified - Discharge Medications Prescriptions: Benzonatate [Tessalon] 100 mg PO TID PRN #12 capsule PRN Reason: Cough Cefdinir [Omnicef] 300 mg PO DAILY #4 capsule Guaifenesin [Mucinex] 600 mg PO BID PRN #8 tab.er.12h PRN Reason: Cough/Congestion Home Medications: Albuterol Sulfate [Ventolin Hfa] 2 puff IH Q4H PRN 10/12/16 [History] Allopurinol [Zyloprim] 100 mg PO DAILY 10/12/16 [History] Aspirin 81 mg PO DAILY 10/12/16 [History] Atorvastatin [Lipitor] 40 mg PO HS 10/12/16 [History] Budesonide/Formoterol 160/4.5 [Symbicort 160/4.5] 2 puff IH BIDR 10/12/16 [ History] Cholecalciferol (Vitamin D3) [Vitamin D3] 2,000 unit PO DAILY 10/12/16 [History] Furosemide [Lasix] 20 mg PO QPM 10/12/16 [History] Furosemide [Lasix] 40 mg PO QAM 10/12/16 [History] Ipratropium [place] 2 spray NS BID 01/14/17 [History] Levothyroxine [Synthroid] 25 mcg PO DAILY 01/14/17 [History] Metoprolol XL (24 HR) Succ [Toprol Xl] 50 mg PO DAILY 01/14/17 [History] Multivitamin [Multi-Day Vitamins] 1 tab PO DAILY 01/14/17 [History] Acetylcysteine [A-Jbsmji-g-Cysteine] 600 mg PO TID 03/11/17 [History] HYDROcodone/Acet 5/325 mg [[place] 5-325 mg] 1 tab PO TID PRN 03/11/17 [History] Loratadine [Claritin] 10 mg PO DAILY 03/11/17 [History] Sevelamer [Renvela] 1,600 mg PO TIDWM 03/11/17 [History] Tizanidine HCl 4 mg PO TID PRN 03/11/17 [History] Losartan [Cozaar] 50 mg PO BID #60 tablet 03/14/17 [Rx] amLODIPine [Norvasc] 10 mg PO DAILY #30 tablet 03/14/17 [Rx] Pregabalin [Lyrica] 50 mg PO BID 11/22/17 [History] Benzonatate [Tessalon] 100 mg PO TID PRN #12 capsule 11/24/17 [Rx] Cefdinir [Omnicef] 300 mg PO DAILY #4 capsule 11/24/17 [Rx] Guaifenesin [Mucinex] 600 mg PO BID PRN #8 tab.er.12h 11/24/17 [Rx] Allergies/Adverse Reactions: 3 Allergy/AdvReac Type Severity Reaction Status Date / Time codeine Allergy Rash Verified 11/22/17 12:27 gabapentin Allergy Itching Verified 11/22/17 12:27 Date of admission: 11/22/17 13:20 Primary care physician: Vladimir Chaidez MD Consults: 11/22/17 15:00 Consult to Nephrology [CONS] Routine Consulting Provider: [facility] Reason for Consult: ESRD Time Notified: 13:00 Call Completed: Yes 11/23/17 08:45 Consult to Dialysis [CONS] ONCE Discharging clinician: Jarad Hickey Anticipated date of discharge: 11/24/17 - Patient Status Disposition: Home, Self-Care Condition: Good Overall status at discharge: patient is progressing back to baseline - Discharge Instructions Follow Up With: Vladimir Chaidez MD [Primary Care Provider] - (web request 11/23/2017) Additional Instructions: Please follow up with her primary care provider at the next available appointment Please take your Cefdinir antibiotic after dialysis for 4 doses. Take one pill after dialysis on Tuesday, Tuesday, Tuesday and Tuesday. Use Tessalon pearls and Mucinex as directed. - Diet and Activity Activity: increase activity as tolerated Diet: advance to your usual diet Interval History: Patient states that she feels like her breathing has improved significantly since having a bronchoscopy and mucous plug removed. States that she is still coughing and is only coughing up small amounts of phlegm. Patient denies any chest pain or abdominal pain at this time. Patient does state that she has had a headache this morning. Hospital course: Ms. Carmona is a 77 year old female that was admitted to the hospital for acute and chronic respiratory failure with hypoxia secondary to pneumonia and mucous plugging. Patient had a bronchoscopy performed by pulmonology and mucous plug in significant amount of mucus was removed from the long period after this there is interval improvement of her chest x-ray findings and the patient stated that she has felt significantly better. Patient is requiring less oxygen here in the hospital. Culture results showed Serratia. Antibiotics will be adjusted accordingly and patient will be started on cefdinir. Patient is stable and appropriate for discharge. Patient will be discharged home with recommendation to follow-up with her primary care provider at the next available appointment as well as to continue with her antibiotics taking her Ceftin year after dialysis Tuesday, Tuesday, Tuesday and Tuesday. Patient will also be provided with Mucinex and Tessalon [place] prescriptions. - Time Spent with Patient Total time spent providing and/or coordinating discharge services: Greater than 30 minutes (40 minutes) - Constitutional Vitals: Temp Pulse Resp BP Pulse Ox 97.4 F L 79 14 160/72 92 11/24/17 12:11/24/17 12:11/24/17 12:11/24/17 12:11/24/17 12:06 General appearance: Present: A&O X 3, pleasant, no acute distress - Head Head exam: Present: atraumatic, normocephalic - Neck Neck exam general surgery: Present: full ROM, normal inspection, trachea midline - Respiratory Respiratory exam: Present: wheezes (Bilaterally) - Cardiovascular Cardiovascular exam: Present: RRR, +S1, +S2. Absent: diastolic murmur, gallop, rubs, systolic murmur - GI/Abdominal GI/Abdominal exam: Present: normal bowel sounds, soft, no peritoneal signs. Absent: distended, tenderness - Extremities Exam Extremities exam: Present: pedal edema (1+ pitting edema) - Neurological Exam Neurological exam: Present: oriented X3, no focal deficits. Absent: facial droop, speech deficit - Skin Skin exam: Present: dry, intact, warm <RegisandreasBarrie hernandez - Last Filed: 11/24/17 16:10> Date of Encounter: 11/24/17 Date of admission: 11/22/17 13:20 Primary care physician: Vladimir Chaidez MD Consults: 11/22/17 15:00 Consult to Nephrology [CONS] Routine Consulting Provider: [facility] Reason for Consult: ESRD Time Notified: 13:00 Call Completed: Yes 11/23/17 08:45 Consult to Dialysis [CONS] ONCE Hospital course: Ms. Carmona is a 77 year old female - Time Spent with Patient Total time spent providing and/or coordinating discharge services: - Constitutional Vitals: Temp Pulse Resp BP Pulse Ox 97.4 F L 79 20 160/72 92 11/24/17 12:06 11/24/17 12:06 11/24/17 15:47 11/24/17 12:06 11/24/17 15:47 - Attending Attestation Acute hypoxic respiratory failure secondary to community-acquired pneumonia and thick mucus plugging on the left lung Sputum culture from BAL is growing Serratia The patient was given the option to stay another day but prefers to be discharged home. Uses 3 Lt of O2 at home. Continue cefdinir 300 mg after dialysis for 4 more doses History of diastolic CHF, stable no exacerbation I examined this patient and my medical decision-making was reviewed with the Resident Physician. I agree with the documented findings, disposition and treatment plan as described except to the extent set forth below.
[2017-11-24] MEDS ORDERED: cefTRIAXone 1,000 MG in Water for inj. (sterile) 20 ML 10 ML IVP SCH (16:00)
[2017-11-24] MEDS ORDERED: Cefdinir 300 MG CAPSULE PO SCH (16:00)
[2017-11-24 16:19] VITALS: BP 157/69
== END 2017-11-24 17:09 | disposition home or self-care (01) | DRG 166 ==
LOC: 2ANU 08:43 → EMEROO 08:43 → 2ANU 10:30 → SUATTDRO 13:20
PROVIDERS: ADMIT Internal Medicine; ATTEND Internal Medicine

== ENCOUNTER 2017-11-25 12:22 | Inpatient (IN) ==
[2017-11-25] MEDS ORDERED: Ipratropium/Albuterol Neb 3 ML IH ONE (12:41)
--- NOTE | 2017-11-25 12:44 | Emergency Department Note ---
Disposition Clinical Impression: Atelectasis, Mucus plugging of bronchi, Elevated troponin, History of pneumonia , Acute exacerbation of chronic obstructive airways disease Disposition: Admitted As Inpatient Condition: Fair Referrals: Vladimir Chaidez MD [Primary Care Provider] - Forms: ED Satisfaction Letter General Adult HPI - General Chief complaint: ED Shortness of Breath/Dyspnea Stated complaint: LAKISHA,discharged yesterday Time Seen by Provider: 11/25/17 12:39 Source: patient, family Limitations: no limitations Nursing Notes Reviewed: Yes Vital Signs Reviewed: Yes - History of Present Illness Pain Scale: 8 - Related Data Home Medications Medication Instructions Recorded Confirmed Albuterol Sulfate [Ventolin Hfa] 2 puff IH Q4H PRN 10/12/16 11/25/17 Allopurinol [Zyloprim] 100 mg PO DAILY 10/12/16 11/25/17 Aspirin 81 mg PO DAILY 10/12/16 11/25/17 Atorvastatin [Lipitor] 40 mg PO HS 10/12/16 11/25/17 Budesonide/Formoterol 160/4.5 2 puff IH BIDR 10/12/16 11/25/17 [Symbicort 160/4.5] Cholecalciferol (Vitamin D3) 2,000 unit PO DAILY 10/12/16 11/25/17 [Vitamin D3] Furosemide [Lasix] 20 mg PO QPM 10/12/16 11/25/17 Furosemide [Lasix] 40 mg PO QAM 10/12/16 11/25/17 Ipratropium [place] 2 spray NS BID 01/14/17 11/25/17 Levothyroxine [Synthroid] 25 mcg PO DAILY 01/14/17 11/25/17 Metoprolol XL (24 HR) Succ [Toprol 50 mg PO DAILY 01/14/17 11/25/17 Xl] Multivitamin [Multi-Day Vitamins] 1 tab PO DAILY 01/14/17 11/25/17 Acetylcysteine 600 mg PO TID 03/11/17 11/25/17 [U-Xuwflk-l-Cysteine] HYDROcodone/Acet 5/325 mg [[place] 1 tab PO TID PRN 03/11/17 11/25/17 5-325 mg] Loratadine [Claritin] 10 mg PO DAILY 03/11/17 11/25/17 Sevelamer [Renvela] 1,600 mg PO TIDWM 03/11/17 11/25/17 Tizanidine HCl 4 mg PO TID PRN 03/11/17 11/25/17 Pregabalin [Lyrica] 50 mg PO BID 11/22/17 11/25/17 Previous Rx's Medication Instructions Recorded Losartan [Cozaar] 50 mg PO BID #60 tablet 03/14/17 amLODIPine [Norvasc] 10 mg PO DAILY #30 tablet 03/14/17 Benzonatate [Tessalon] 100 mg PO TID PRN #12 capsule 11/24/17 Cefdinir [Omnicef] 300 mg PO DAILY #4 capsule 11/24/17 Guaifenesin [Mucinex] 600 mg PO BID PRN #8 tab.er.12h 11/24/17 Allergies Allergy/AdvReac Type Severity Reaction Status Date / Time codeine Allergy Rash Verified 11/22/17 12:27 gabapentin Allergy Itching Verified 11/22/17 12:27 Past Medical History - Past Medical History Medical history: Reports: asthma, COPD, DVT, dialysis, hyperlipidemia, hypertension, osteoporosis, renal disease Surgical history: Reports: other Psychiatric history: Reports: no psych history - Social History Smoking Status: Former smoker Smokeless Tobacco Status: No Alcohol use: Reports: none Drug use: Reports: none Physical Exam - General Limitations: no limitations General appearance: alert, other Course Vital Signs Temperature 98.2 F 11/25/17 12:23 Pulse Rate 88 11/25/17 12:23 Respiratory Rate 26 11/25/17 12:23 Blood Pressure 177/83 11/25/17 12:23 O2 Sat by Pulse Oximetry 83 11/25/17 12:23 Temperature 98.2 F 11/25/17 12:23 Pulse Rate 100 11/25/17 14:35 Respiratory Rate 22 11/25/17 14:35 Blood Pressure 196/125 11/25/17 14:35 O2 Sat by Pulse Oximetry 88 11/25/17 14:35 Oxygen Delivery Oxygen Delivery Bipap Medical Decision Making - MDM Narrative Medical decision making narrative: This documentation is done with the assistance of Dragon dictation. Despite efforts made to ensure accuracy, there may be inaccuracies in chemical handler or spelling and typographical errors. I examined this patient and my medical decision-making was reviewed with the Resident Physician. I agree with the documented findings, disposition and treatment plan as described except to the extent set forth below. Patient seen and evaluated on arrival with Dr. Carlin myself, I agree with his evaluation management plan, I supervised the care of the patient's stay. Patient came from dialysis she was not able to finish dialysis due to increased dyspnea. She has a history of COPD. She had a recent bronchial mucus plugging. He had pneumonia. She is on antibiotics. She also sees nephrology. Patient is an respiratory distress with sats in the mid 70s. We will go ahead and start her on breathing treatments she may need BiPAP will speak with hospitalist and consulting services for admission. Chest X-Ray 11/25/17 12:41 IMPRESSION: There is now complete opacification of left hemithorax, which could be related to a large pleural effusion and/or lobar atelectasis. Question filling defect within the distal left mainstem bronchus. D/ / Treas Kraus MD / Tresa Kraus MD Interpreting Provider: Tresa Kraus MD 2 breathing treatments and oxygen and she is now up into the mid 80s. Last hospital she was 92%. Chest x-ray questions whether she has another mucous plug. 1400 hrs.: Patient was seen in the department by pulmonary, Dr. Jason, he agrees with admission to hospitalist with her getting a bronchitic today. She is in agreement with this plan. Her sats up in the 80s now. Impression is COPD with likely mucous plugging. Left side of white out on lung. Her critical care time excluding separately billable procedures is 45 minutes. 1440 hrs.: I spoke with Dr. Sorto yesterday but a consult and for him. He said he will probably dialyze her tomorrow. We will speak with hospitalist for admission. - Lab Data Result diagrams: 11/25/17 12:36 11/25/17 12:36 Lab Results 11/25/17 11/25/17 11/25/17 Range/Units 12:36 12:36 12:36 WBC 6.5 (4.3-11.1) K/mcL RBC 3.12 L (3.82-4.97) M/mcL Hgb 10.5 L D (11.5-15.4) g/dL Hct 31.7 L (35.3-44.9) % MCV 101.6 H (83.0-100.0) fL MCH 33.7 H (28.0-33.3) pg MCHC 33.1 (31.6-35.5) g/dL RDW 14.8 H (11.5-14.5) % Plt Count 120 L (140-400) K/mcL MPV 10.0 (9.4-12.4) fL Immature Gran % 0.3 (0-4) % Seg Neutrophils % 85.2 % Lymphocytes % 6.3 % Monocytes % 6.0 % Eosinophils % 2.0 % Basophils % 0.2 % Neutrophils # 5.6 (1.6-8.9) K/mcL Lymphocytes # 0.4 L (0.6-4.6) K/mcL Monocytes # 0.4 (0.0-1.3) K/mcL Eosinophils # 0.1 (0.0-0.6) K/mcL Basophils # 0.0 (0.0-0.2) K/mcL Sodium 137 (136-145) mEq/L Potassium 4.2 (3.5-5.1) mEq/L Chloride 96 L (98-107) mEq/L Carbon Dioxide 28 (23-29) mEq/L BUN 28 H (8-23) mg/dL Creatinine 4.10 H (0.60-1.20) mg/dL Est GFR ( Amer) 13 L (> 60) Est GFR (Non-Af Amer) 11 L (> 60) BUN/Creatinine Ratio 7 (6-26) Glucose 90 (70-105) mg/dL Calculated Osmolality 289 (280-300) Calcium 10.1 (8.6-10.3) mg/dL Troponin I 0.04 H* (< 0.04) ng/mL B-Natriuretic Peptide (Less than 100) pg/mL 11/25/17 Range/Units 12:36 WBC (4.3-11.1) K/mcL RBC (3.82-4.97) M/mcL Hgb (11.5-15.4) g/dL Hct (35.3-44.9) % MCV (83.0-100.0) fL MCH (28.0-33.3) pg MCHC (31.6-35.5) g/dL RDW (11.5-14.5) % Plt Count (140-400) K/mcL MPV (9.4-12.4) fL Immature Gran % (0-4) % Seg Neutrophils % % Lymphocytes % % Monocytes % % Eosinophils % % Basophils % % Neutrophils # (1.6-8.9) K/mcL Lymphocytes # (0.6-4.6) K/mcL Monocytes # (0.0-1.3) K/mcL Eosinophils # (0.0-0.6) K/mcL Basophils # (0.0-0.2) K/mcL Sodium (136-145) mEq/L Potassium (3.5-5.1) mEq/L Chloride (98-107) mEq/L Carbon Dioxide (23-29) mEq/L BUN (8-23) mg/dL Creatinine (0.60-1.20) mg/dL Est GFR ( Amer) (> 60) Est GFR (Non-Af Amer) (> 60) BUN/Creatinine Ratio (6-26) Glucose (70-105) mg/dL Calculated Osmolality (280-300) Calcium (8.6-10.3) mg/dL Troponin I (< 0.04) ng/mL B-Natriuretic Peptide 3339 H (Less than 100) pg/mL
--- NOTE | 2017-11-25 12:50 | Emergency Department Note ---
Disposition Clinical Impression: Atelectasis, Mucus plugging of bronchi, Elevated troponin, History of pneumonia , Acute exacerbation of chronic obstructive airways disease Disposition: Admitted As Inpatient Condition: Fair Referrals: Vladimir Chaidez MD [Primary Care Provider] - Forms: ED Satisfaction Letter General Adult HPI - General Chief complaint: ED Shortness of Breath/Dyspnea Stated complaint: LAKISHA,discharged yesterday Time Seen by Provider: 11/25/17 12:39 Source: patient, family Limitations: no limitations Nursing Notes Reviewed: Yes Vital Signs Reviewed: Yes - History of Present Illness HPI Narrative: 77 y/o female who was discharged yesterday after an admission for pneumonia. She had mucous plugging and required a bronch while in the hospital. She reports progressively worse coughing and shortness of breath since she left. She was placed on antibiotics after positive sputum cultures. She denies new LE edema. She has significant dyspnea. She was at dialysis but could not continue due to dyspnea. Radiation: non-radiation Pain Severity: moderate Pain Scale: 8 Improves with: nothing Worsens with: other (exertion) Associated symptoms: Reports: denies other symptoms Treatments Prior to Arrival: none - Related Data Home Medications Medication Instructions Recorded Confirmed Albuterol Sulfate [Ventolin Hfa] 2 puff IH Q4H PRN 10/12/16 11/22/17 Allopurinol [Zyloprim] 100 mg PO DAILY 10/12/16 11/22/17 Aspirin 81 mg PO DAILY 10/12/16 11/22/17 Atorvastatin [Lipitor] 40 mg PO HS 10/12/16 11/22/17 Budesonide/Formoterol 160/4.5 2 puff IH BIDR 10/12/16 11/22/17 [Symbicort 160/4.5] Cholecalciferol (Vitamin D3) 2,000 unit PO DAILY 10/12/16 11/22/17 [Vitamin D3] Furosemide [Lasix] 20 mg PO QPM 10/12/16 11/22/17 Furosemide [Lasix] 40 mg PO QAM 10/12/16 11/22/17 Ipratropium [place] 2 spray NS BID 01/14/17 11/22/17 Levothyroxine [Synthroid] 25 mcg PO DAILY 01/14/17 11/22/17 Metoprolol XL (24 HR) Succ [Toprol 50 mg PO DAILY 01/14/17 11/22/17 Xl] Multivitamin [Multi-Day Vitamins] 1 tab PO DAILY 01/14/17 11/22/17 Acetylcysteine 600 mg PO TID 03/11/17 11/22/17 [F-Vtscap-g-Cysteine] HYDROcodone/Acet 5/325 mg [[place] 1 tab PO TID PRN 03/11/17 11/22/17 5-325 mg] Loratadine [Claritin] 10 mg PO DAILY 03/11/17 11/22/17 Sevelamer [Renvela] 1,600 mg PO TIDWM 03/11/17 11/22/17 Tizanidine HCl 4 mg PO TID PRN 03/11/17 11/22/17 Pregabalin [Lyrica] 50 mg PO BID 11/22/17 11/22/17 Previous Rx's Medication Instructions Recorded Losartan [Cozaar] 50 mg PO BID #60 tablet 03/14/17 amLODIPine [Norvasc] 10 mg PO DAILY #30 tablet 03/14/17 Benzonatate [Tessalon] 100 mg PO TID PRN #12 capsule 11/24/17 Cefdinir [Omnicef] 300 mg PO DAILY #4 capsule 11/24/17 Guaifenesin [Mucinex] 600 mg PO BID PRN #8 tab.er.12h 11/24/17 Allergies Allergy/AdvReac Type Severity Reaction Status Date / Time codeine Allergy Rash Verified 11/22/17 12:27 gabapentin Allergy Itching Verified 11/22/17 12:27 All systems ED: reviewed and negative except as stated. Review of Systems: As Per HPI Cardiovascular: Denies: chest pain Respiratory: Reports: cough Musculoskeletal: Denies: back pain Integumentary: Denies: rash Past Medical History - Past Medical History Medical history: Reports: asthma, COPD, DVT, dialysis, hyperlipidemia, hypertension, osteoporosis, renal disease Surgical history: Reports: other Psychiatric history: Reports: no psych history - Social History Smoking Status: Former smoker Smokeless Tobacco Status: No Alcohol use: Reports: none Drug use: Reports: none Physical Exam - General Limitations: no limitations General appearance: alert, other - Head Head exam: atraumatic - Eye Eye exam: Present: normal appearance, PERRL - ENT ENT exam: normal exam, normal oropharynx - Neck Neck exam: Present: normal inspection - Respiratory Respiratory exam: Present: other (diminished breath sounds on the left. Coarse rhonchi throughout. Tachypnea, and increased work of breathing.) - Cardiovascular Cardiovascular exam: Present: regular rate, normal rhythm - Abdominal Exam Abdominal exam: Present: soft, Non-Tender - Extremities Exam Extremities exam: Present: normal inspection - Neurological Exam Neurological exam: Present: alert, oriented X3 - Skin Skin exam: Present: warm, dry Course Course Narrative: Looked at sensitivities, and the carolee is sensitive to rocephin which I have ordered. CXR shows opacified left hemithorax similar to prior CXR before she had a bronchoscopy. I believe this is still mucous plugging due to abrupt termination of left main bronchus, elevated left hemidiaphragm, and tracheal deviation to the left. I called and spoke with pulmonology who evaluated the patient and plan on bronchoscopy today. Troponin is mildly elevated. There is mild ST depression on EKG. Accepted by Dr Katz Vital Signs Temperature 98.2 F 11/25/17 12:23 Pulse Rate 88 11/25/17 12:23 Respiratory Rate 26 11/25/17 12:23 Blood Pressure 177/83 11/25/17 12:23 O2 Sat by Pulse Oximetry 83 11/25/17 12:23 Temperature 98.2 F 11/25/17 12:23 Pulse Rate 85 11/25/17 14:17 Respiratory Rate 25 11/25/17 14:17 Blood Pressure 190/90 11/25/17 14:17 O2 Sat by Pulse Oximetry 100 11/25/17 14:17 Oxygen Delivery Oxygen Delivery Bipap Medical Decision Making - Medical Records Medical records reviewed: Yes I reviewed the patient's medical records. - Lab Data Lab results reviewed: Yes I reviewed the patient's lab results. Result diagrams: 11/25/17 12:36 11/25/17 12:36 Lab Results 11/25/17 11/25/17 11/25/17 Range/Units 12:36 12:36 12:36 WBC 6.5 (4.3-11.1) K/mcL RBC 3.12 L (3.82-4.97) M/mcL Hgb 10.5 L D (11.5-15.4) g/dL Hct 31.7 L (35.3-44.9) % MCV 101.6 H (83.0-100.0) fL MCH 33.7 H (28.0-33.3) pg MCHC 33.1 (31.6-35.5) g/dL RDW 14.8 H (11.5-14.5) % Plt Count 120 L (140-400) K/mcL MPV 10.0 (9.4-12.4) fL Immature Gran % 0.3 (0-4) % Seg Neutrophils % 85.2 % Lymphocytes % 6.3 % Monocytes % 6.0 % Eosinophils % 2.0 % Basophils % 0.2 % Neutrophils # 5.6 (1.6-8.9) K/mcL Lymphocytes # 0.4 L (0.6-4.6) K/mcL Monocytes # 0.4 (0.0-1.3) K/mcL Eosinophils # 0.1 (0.0-0.6) K/mcL Basophils # 0.0 (0.0-0.2) K/mcL Sodium 137 (136-145) mEq/L Potassium 4.2 (3.5-5.1) mEq/L Chloride 96 L (98-107) mEq/L Carbon Dioxide 28 (23-29) mEq/L BUN 28 H (8-23) mg/dL Creatinine 4.10 H (0.60-1.20) mg/dL Est GFR ( Amer) 13 L (> 60) Est GFR (Non-Af Amer) 11 L (> 60) BUN/Creatinine Ratio 7 (6-26) Glucose 90 (70-105) mg/dL Calculated Osmolality 289 (280-300) Calcium 10.1 (8.6-10.3) mg/dL Troponin I 0.04 H* (< 0.04) ng/mL B-Natriuretic Peptide (Less than 100) pg/mL 11/25/17 Range/Units 12:36 WBC (4.3-11.1) K/mcL RBC (3.82-4.97) M/mcL Hgb (11.5-15.4) g/dL Hct (35.3-44.9) % MCV (83.0-100.0) fL MCH (28.0-33.3) pg MCHC (31.6-35.5) g/dL RDW (11.5-14.5) % Plt Count (140-400) K/mcL MPV (9.4-12.4) fL Immature Gran % (0-4) % Seg Neutrophils % % Lymphocytes % % Monocytes % % Eosinophils % % Basophils % % Neutrophils # (1.6-8.9) K/mcL Lymphocytes # (0.6-4.6) K/mcL Monocytes # (0.0-1.3) K/mcL Eosinophils # (0.0-0.6) K/mcL Basophils # (0.0-0.2) K/mcL Sodium (136-145) mEq/L Potassium (3.5-5.1) mEq/L Chloride (98-107) mEq/L Carbon Dioxide (23-29) mEq/L BUN (8-23) mg/dL Creatinine (0.60-1.20) mg/dL Est GFR ( Amer) (> 60) Est GFR (Non-Af Amer) (> 60) BUN/Creatinine Ratio (6-26) Glucose (70-105) mg/dL Calculated Osmolality (280-300) Calcium (8.6-10.3) mg/dL Troponin I (< 0.04) ng/mL B-Natriuretic Peptide 3339 H (Less than 100) pg/mL - Radiology Data Radiology results reviewed: Yes I reviewed the patient's radiology results. - EKG Data EKG #1 EKG attestation: Yes I reviewed and interpreted this EKG. EKG shows normal: sinus rhythm Rate: normal Rhythm: NSR Interpretation: other (mild diffuse ST depression)
[2017-11-25 12:58] LABS: Basophils % 0.2 %; Eosinophils # 0.1 K/mcL (0.0-0.6); Hematocrit 31.7 % (35.3-44.9); Hemoglobin 10.5 g/dL (11.5-15.4); Immature Granulocytes % 0.3 % (0-4); Lymphocytes # 0.4 K/mcL (0.6-4.6); Lymphocytes % 6.3 %; Mean Corpuscular HGB Conc 33.1 g/dL (31.6-35.5); Mean Corpuscular Hemoglobin 33.7 pg (28.0-33.3); Mean Corpuscular Volume 101.6 fL (83.0-100.0); Monocytes # 0.4 K/mcL (0.0-1.3); Neutrophils # 5.6 K/mcL (1.6-8.9); Platelet Count 120 K/mcL (140-400); Red Blood Count 3.12 M/mcL (3.82-4.97); Red Cell Distribution Width 14.8 % (11.5-14.5); Segmented Neutrophils % 85.2 %
[2017-11-25 13:08] LABS: Calcium 10.1 mg/dL (8.6-10.3); Potassium 4.2 mEq/L (3.5-5.1)
[2017-11-25] MEDS ORDERED: cefTRIAXone 1,000 MG in Water for inj. (sterile) 20 ML 10 ML IVP ONE (13:23)
[2017-11-25] MEDS: Aspirin 325 MG TABLET PO ONE ×2 (13:48→14:05)
[2017-11-25] MEDS ORDERED: *HR* Midazolam HCl 5 MG/5 ML VIAL IVP ONE (14:05)
[2017-11-25] MEDS ORDERED: *HR* FentaNYL (PF) 100 MCG/2 ML VIAL ONE (14:06)
[2017-11-25] MEDS ORDERED: *HR* EPINEPHrine 1 MG/10 ML SYRINGE INTRATRACH PRN (14:31)
[2017-11-25] MEDS ORDERED: Tetracaine/Benzocaine/Butamben 200MG/SPRAY (100SPY/BOT) MM ONE (14:31)
[2017-11-25] MEDS ORDERED: Albuterol 2.5 MG/3 ML NEBULIZER IH ONE (14:31)
[2017-11-25] MEDS ORDERED: Lidocaine Viscous Oral Soln 15 ML SOLUTION MM ONE (14:31)
[2017-11-25] MEDS ORDERED: *HR* Midazolam HCl 2 MG/2 ML VIAL IVP ONE (14:31)
[2017-11-25] MEDS ORDERED: *HR* FentaNYL (PF) 100 MCG/2 ML VIAL IVP ONE (14:31)
--- NOTE | 2017-11-25 14:31 | Pre-Sedation Evaluation ---
Pre-sedation evaluation - Pre-sedation checklist Date of procedure: 11/25/17 Procedure: bronchoscopy Recent Vitals: Last Vital Signs Temp 98.2 F 11/25/17 12:23 Pulse 85 11/25/17 14:17 Resp 25 11/25/17 14:17 BP 190/90 11/25/17 14:17 Pulse Ox 100 11/25/17 14:17 H&P (including ROS) documented in medical record: Yes Previous reaction to sedatives/anesthetics: No Dietary Status: NPO after Midnight Dentition: full dentition Possible difficult airway: No ASA Classification *see protocol: CLASS IV-Severe systemic disease/constant threat to pt's life Plan of Care: Pt appropriate candidate for procedure/moderate/conscious sedation , Risks/benefits of procedure/sedation discussed w/ patient/family
--- NOTE | 2017-11-25 14:31 | Pulmonology Consult Note ---
Date of Encounter: 11/26/17 Time of Encounter: 14:15 Past Med Surg Social Fam HX - Past Medical History Medical history: asthma, COPD, DVT, dialysis, hyperlipidemia, hypertension, osteoporosis, renal disease Psychiatric history: no psych history - Past Surgical History Surgical History: other - Social History Smoking Status: Former smoker Smokeless Tobacco Status: No Alcohol use: none Drug use: none - Family History Mother Living Status: Hx Family Cardiac Disorders: No Hx Family Respiratory Disorders: No Hx Family Cancer: Yes (Colon) Hx Family GI Disorders: No Hx Family Endocrine Disorder: Yes (Borderline DM) Hx Family Neuromuscular Disorders: No Hx Family Neurologic Disorders: No Hx Family HEENT Disorders: No Hx Family Autoimmune Disorders: No Medications and Allergies Albuterol Sulfate [Ventolin Hfa] 2 puff IH Q4H PRN 10/12/16 [History] Allopurinol [Zyloprim] 100 mg PO DAILY 10/12/16 [History] Aspirin 81 mg PO DAILY 10/12/16 [History] Atorvastatin [Lipitor] 40 mg PO HS 10/12/16 [History] Budesonide/Formoterol 160/4.5 [Symbicort 160/4.5] 2 puff IH BIDR 10/12/16 [ History] Cholecalciferol (Vitamin D3) [Vitamin D3] 2,000 unit PO DAILY 10/12/16 [History] Furosemide [Lasix] 20 mg PO QPM 10/12/16 [History] Furosemide [Lasix] 40 mg PO QAM 10/12/16 [History] Ipratropium [place] 2 spray NS BID 01/14/17 [History] Levothyroxine [Synthroid] 25 mcg PO DAILY 01/14/17 [History] Metoprolol XL (24 HR) Succ [Toprol Xl] 50 mg PO DAILY 01/14/17 [History] Multivitamin [Multi-Day Vitamins] 1 tab PO DAILY 01/14/17 [History] Acetylcysteine [Z-Nbzlue-f-Cysteine] 600 mg PO TID 03/11/17 [History] HYDROcodone/Acet 5/325 mg [[place] 5-325 mg] 1 tab PO TID PRN 03/11/17 [History] Loratadine [Claritin] 10 mg PO DAILY 03/11/17 [History] Sevelamer [Renvela] 1,600 mg PO TIDWM 03/11/17 [History] Tizanidine HCl 4 mg PO TID PRN 03/11/17 [History] Losartan [Cozaar] 50 mg PO BID #60 tablet 03/14/17 [Rx] amLODIPine [Norvasc] 10 mg PO DAILY #30 tablet 03/14/17 [Rx] Pregabalin [Lyrica] 50 mg PO BID 11/22/17 [History] Benzonatate [Tessalon] 100 mg PO TID PRN #12 capsule 11/24/17 [Rx] Cefdinir [Omnicef] 300 mg PO DAILY #4 capsule 11/24/17 [Rx] Guaifenesin [Mucinex] 600 mg PO BID PRN #8 tab.er.12h 11/24/17 [Rx] 3 Allergy/AdvReac Type Severity Reaction Status Date / Time codeine Allergy Rash Verified 11/25/17 14:42 gabapentin Allergy Itching Verified 11/25/17 14:42 All Systems: A 10-system review of systems was performed and is negative for pertinent findings except as documented above in the HPI. Physical Examination Vital Signs: Vital Signs, Last 4 Hours Temp Pulse Resp BP Pulse Ox 11/25/17 14:17 85 25 190/90 100 11/25/17 13:20 90 11/25/17 12:49 24 83 11/25/17 12:23 98.2 F 88 26 177/83 83 Results - Laboratory Findings CBC and BMP: 11/26/17 04:39 11/26/17 04:39 Abnormal lab findings: Abnormal lab results RBC 3.12 M/mcL (3.82-4.97) L 11/25/17 12:36 Hgb 10.5 g/dL (11.5-15.4) L D 11/25/17 12:36 Hct 31.7 % (35.3-44.9) L 11/25/17 12:36 MCV 101.6 fL (83.0-100.0) H 11/25/17 12:36 MCH 33.7 pg (28.0-33.3) H 11/25/17 12:36 RDW 14.8 % (11.5-14.5) H 11/25/17 12:36 Plt Count 120 K/mcL (140-400) L 11/25/17 12:36 Lymphocytes # 0.4 K/mcL (0.6-4.6) L 11/25/17 12:36 Chloride 96 mEq/L (98-107) L 11/25/17 12:36 BUN 28 mg/dL (8-23) H 11/25/17 12:36 Creatinine 4.10 mg/dL (0.60-1.20) H 11/25/17 12:36 Est GFR ( Amer) 13 (> 60) L 11/25/17 12:36 Est GFR (Non-Af Amer) 11 (> 60) L 11/25/17 12:36 Troponin I 0.04 ng/mL (< 0.04) H* 11/25/17 12:36 B-Natriuretic Peptide 3339 pg/mL (Less than 100) H 11/25/17 12:36 - Microbiology Findings Microbiology Findings: Microbiology, Last 48 Hours 11/25/17 13:02 Influenza Types A,B Antigen (SONJA) - Final Nasopharyngeal - Clinical Findings Intake & Output: Intake & Output 11/24/17 11/25/17 11/25/17 23:59 07:59 15:59 Intake Total Balance Weight 66.678 kg Consult Discharge Plan - Plan Referrals: Vladimir Chaidez MD [Primary Care Provider] - - Attending Attestation I examined this patient and my medical decision-making was reviewed with the Resident Physician. I agree with the documented findings, disposition and treatment plan as described except to the extent set forth below. Patient seen and examined. Labs, radiology, chart personally reviewed. I was called by emergency room attending to evaluate this patient that she is known to me from outpatient and also recent hospitalization for similar condition. Evaluating care in emergency room if and patient in respiratory distress and arranged bronchoscopy for her as soon as possible to help her to remove this mucous plug and improve her respiratory status, unfortunately due to her severe distress and did not mucous plugs were so thick and not able to remove it and she needed to be intubated, and secure her airway with the help of anesthesiology team she was intubated successfully and subsequently with a lot of efforts we were able to remove significant amount of mucous plugs with instant improvement in oxygenation. Patient was moved to ICU after that for further care. 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 This has stabilized after intubation and bronchoscopy and will have follow-up ABG. We will plan for bronchoscopy tomorrow to inspect the airway before any CPAP trial for extubation. Cardiovascular: Patient with history of hypertension, however with sedation blood pressure is acceptable. GI: Nutrition per dietary and GI prophylaxis per routine Heme: DVT prophylaxis per routine with DVT prophylaxis with mechanical because of patient diagnosis ID: Continue antibiotics and plan to de-escalation Renal; urine out put and renal funtion reviewed. Nephrology to follow up regarding dialysis. Endorcine: blood glucose is monitored Lines: all lines checked and no evidence of infections Skin: skin care to prevent pressure ulcers per nursing routine care I have explained this to the and he understand the situation. I spent 80 min of Critical Care time with this patient. It involved decision making of high complexity to assess, manipulate, and support vital organ system failure and/or to prevent further life threatening deterioration of the patient' s condition. The time involved in the performance of separately reportable procedures was not counted toward critical care time. Please see more details under H&P that was done by resident which was discussed on 11/25/2016 and both consult draft and H&P were signed on 11/26/2016
[2017-11-25] MEDS ORDERED: *HR* Propofol 200 MG/20 ML VIAL IVP ONE (15:08)
[2017-11-25] MEDS ORDERED: Dexamethasone 4 MG/ML VIAL ONE (15:11)
[2017-11-25] MEDS ORDERED: *HR* Midazolam HCl 2 MG/2 ML VIAL ONE (15:11)
[2017-11-25] MEDS ORDERED: Lacri-Lube 3.5 GM TUBE BOTH EYES PRN (15:20)
--- NOTE | 2017-11-25 15:26 | Anesthesia Procedures ---
Date of Encounter: 11/25/17 Time of Encounter: 14:55 Procedures: Anesthesia - Intubation Time out performed: No Sedative: Versed, Propofol Amount Sedative given: 2 versed 200 mg propofol Paralytic: other (none) Laryngoscope: Conroy Laryngoscope Size: 2 Assist device used: other (9.0 ETT) ET Tube Size: 8.5 ET tube uncuffed: Yes Tube secured depth (cm): 22 Tube Placement Confirmation: visualized tube passing through cords, equal breath sounds bilaterally, confirmation by capnometry Patient tolerated procedure: well Intubation complications: none Additional comments: asked to emergently intubate patient by dr hicks. Pt severely dyspnic and in respiratory distress. pt confused and thrashing in bed. o2 sats 69% on 40% face mask. smooth induction, atraumatic. vital signs stable. patient sats imporoved to 86% and then 98%. pt sent to ICU afterwards.
[2017-11-25] MEDS: Acetylcysteine 10% 2 ML INHSOL IH SCH ×3 (15:50→23:30)
[2017-11-25] MEDS: Ipratropium/Albuterol Neb 3 ML IH SCH ×3 (15:50→23:30)
--- NOTE | 2017-11-25 16:04 | Pulmonology History & Physical ---
<Eron Giang - Last Filed: 11/25/17 18:24> Date of Encounter: 11/25/17 Time of Encounter: 16:04 Assessment and Plan (1) Acute and chronic respiratory failure with hypoxia Current visit: No Status: Acute Vent settings: a/c, rr 12, tidal 500, peep 5, fio2 100%. Bronchodilators stat ABG CXR chest percussive therapy (2) Mucus plugging of bronchi Current visit: Yes Status: Acute Plan for bronchoscopy tomorrow with Dr. Mccloud. RT weaning and possible extubation. (3) Pneumonia Current visit: No Status: Acute Culture positive growth Serratia; multiple sensitivities, was on cefdinir in prior admission, will start Rocephin 2g daily. Qualifiers: Pneumonia type: due to unspecified organism Laterality: left Lung location: lower lobe of lung Qualified Code(s): J18.1 - Lobar pneumonia, unspecified organism (4) ESRD on dialysis Current visit: No Status: Chronic Consulted Nephrology. Pt is MWF dialysis patient, creatinine baseline in 4.0s (5) COPD (chronic obstructive pulmonary disease) Current visit: No Status: Chronic Chronic condition, bronchodilators/symbicort Qualifiers: COPD type: unspecified COPD Qualified Code(s): J44.9 - Chronic obstructive pulmonary disease, unspecified (6) HTN (hypertension) Current visit: No Status: Chronic Hypertensive on admission; now on 2 sedatives; monitor. Can wean sedatives if pt tolerates. Qualifiers: Hypertension type: essential hypertension Qualified Code(s): I10 - Essential (primary) hypertension (7) DVT prophylaxis Current visit: No Status: Acute On intermittent pneumatic compression. History of Present Illness Chief complaint: Resp failure HPI: Ms. Carmona is a 77 year old female admitted to ICU for respiratory failure during bronchoscopy due to right sided mucus plug. PMH ESRD, was experiencing dyspnea in her dialysis chair (MWF). Recently discharged from [facility] yesterday for acute on chronic respiratory failure with hypoxia secondary to pneumonia and mucous plugging. Did have bronchoscopy during that admission, culture growing Serratia, treated with Cefdinir in-patient and dcd with continuation of that medication. Today she was intubated emergently, brought to ICU, is on propofol/fentanyl, started on Rocephin. Past Med Surg Social Fam HX - Past Medical History Medical history: asthma, COPD, DVT, dialysis, hyperlipidemia, hypertension, osteoporosis, renal disease Psychiatric history: no psych history - Past Surgical History Surgical History: other - Social History Smoking Status: Former smoker Smokeless Tobacco Status: No Alcohol use: none Drug use: none - Family History Mother Living Status: Hx Family Cardiac Disorders: No Hx Family Respiratory Disorders: No Hx Family Cancer: Yes (Colon) Hx Family GI Disorders: No Hx Family Endocrine Disorder: Yes (Borderline DM) Hx Family Neuromuscular Disorders: No Hx Family Neurologic Disorders: No Hx Family HEENT Disorders: No Hx Family Autoimmune Disorders: No Medications and Allergies Albuterol Sulfate [Ventolin Hfa] 2 puff IH Q4H PRN 10/12/16 [History] Allopurinol [Zyloprim] 100 mg PO DAILY 10/12/16 [History] Aspirin 81 mg PO DAILY 10/12/16 [History] Atorvastatin [Lipitor] 40 mg PO HS 10/12/16 [History] Budesonide/Formoterol 160/4.5 [Symbicort 160/4.5] 2 puff IH BIDR 10/12/16 [ History] Cholecalciferol (Vitamin D3) [Vitamin D3] 2,000 unit PO DAILY 10/12/16 [History] Furosemide [Lasix] 20 mg PO QPM 10/12/16 [History] Furosemide [Lasix] 40 mg PO QAM 10/12/16 [History] Ipratropium [place] 2 spray NS BID 01/14/17 [History] Levothyroxine [Synthroid] 25 mcg PO DAILY 01/14/17 [History] Metoprolol XL (24 HR) Succ [Toprol Xl] 50 mg PO DAILY 01/14/17 [History] Multivitamin [Multi-Day Vitamins] 1 tab PO DAILY 01/14/17 [History] Acetylcysteine [F-Oxicwa-z-Cysteine] 600 mg PO TID 03/11/17 [History] HYDROcodone/Acet 5/325 mg [[place] 5-325 mg] 1 tab PO TID PRN 03/11/17 [History] Loratadine [Claritin] 10 mg PO DAILY 03/11/17 [History] Sevelamer [Renvela] 1,600 mg PO TIDWM 03/11/17 [History] Tizanidine HCl 4 mg PO TID PRN 03/11/17 [History] Losartan [Cozaar] 50 mg PO BID #60 tablet 03/14/17 [Rx] amLODIPine [Norvasc] 10 mg PO DAILY #30 tablet 03/14/17 [Rx] Pregabalin [Lyrica] 50 mg PO BID 11/22/17 [History] Benzonatate [Tessalon] 100 mg PO TID PRN #12 capsule 11/24/17 [Rx] Cefdinir [Omnicef] 300 mg PO DAILY #4 capsule 11/24/17 [Rx] Guaifenesin [Mucinex] 600 mg PO BID PRN #8 tab.er.12h 11/24/17 [Rx] 3 Allergy/AdvReac Type Severity Reaction Status Date / Time codeine Allergy Rash Verified 11/25/17 14:42 gabapentin Allergy Itching Verified 11/25/17 14:42 ROS unobtainable: due to endotracheal tube, due to mental status (sedated on fentanyl/propofol) All Systems: A 10-system review of systems was performed and is negative for pertinent findings except as documented above in the HPI. Physical Examination General appearance: other (intubated and sedated) Eyes: nonicteric ENT: oropharynx moist Neck: supple Auscultation: bilateral: diminished breath sounds, rales (worse on left) Cardiovascular: other (tachycardic, no murmur, no heave, no rub) Gastrointestinal: soft, non-distended Integumentary: normal Extremities: no cyanosis Results - Laboratory Findings CBC and BMP: 11/25/17 12:36 11/25/17 12:36 Abnormal lab findings: Abnormal lab results RBC 3.12 M/mcL (3.82-4.97) L 11/25/17 12:36 Hgb 10.5 g/dL (11.5-15.4) L D 11/25/17 12:36 Hct 31.7 % (35.3-44.9) L 11/25/17 12:36 MCV 101.6 fL (83.0-100.0) H 11/25/17 12:36 MCH 33.7 pg (28.0-33.3) H 11/25/17 12:36 RDW 14.8 % (11.5-14.5) H 11/25/17 12:36 Plt Count 120 K/mcL (140-400) L 11/25/17 12:36 Lymphocytes # 0.4 K/mcL (0.6-4.6) L 11/25/17 12:36 Chloride 96 mEq/L (98-107) L 11/25/17 12:36 BUN 28 mg/dL (8-23) H 11/25/17 12:36 Creatinine 4.10 mg/dL (0.60-1.20) H 11/25/17 12:36 Est GFR ( Amer) 13 (> 60) L 11/25/17 12:36 Est GFR (Non-Af Amer) 11 (> 60) L 11/25/17 12:36 Troponin I 0.04 ng/mL (< 0.04) H* 11/25/17 12:36 B-Natriuretic Peptide 3339 pg/mL (Less than 100) H 11/25/17 12:36 <Melinda Mccloud M - Last Filed: 11/26/17 09:25> Date of Encounter: 11/26/17 History of Present Illness HPI: Ms. Carmona is a 77 year old female All Systems: A 10-system review of systems was performed and is negative for pertinent findings except as documented above in the HPI. Physical Examination Vital Signs: Vital Signs, Last 4 Hours Temp Pulse Resp BP Pulse Ox 11/26/17 08:00 97.8 F 11/26/17 07:42 104/51 95 11/26/17 06:00 67 12 106/51 96 11/26/17 05:58 12 106/51 96 Results - Laboratory Findings CBC and BMP: 11/26/17 04:39 11/26/17 04:39 ABG ABG pH 7.41 pH Units (7.32-7.45) 11/26/17 04:34 ABG pCO2 50 mmHg (35-45) H 11/26/17 04:34 ABG pO2 96 mmHg (85-104) 11/26/17 04:34 ABG O2 Saturation 97 % (95-98) 11/26/17 04:34 Abnormal lab findings: Abnormal lab results WBC 3.9 K/mcL (4.3-11.1) L 11/26/17 04:39 RBC 2.30 M/mcL (3.82-4.97) L 11/26/17 04:39 Hgb 7.7 g/dL (11.5-15.4) L D 11/26/17 04:39 Hct 23.6 % (35.3-44.9) L 11/26/17 04:39 MCV 102.6 fL (83.0-100.0) H 11/26/17 04:39 MCH 33.5 pg (28.0-33.3) H 11/26/17 04:39 RDW 14.6 % (11.5-14.5) H 11/26/17 04:39 Plt Count 86 K/mcL (140-400) L 11/26/17 04:39 Lymphocytes # 0.3 K/mcL (0.6-4.6) L 11/26/17 04:39 ABG pCO2 50 mmHg (35-45) H 11/26/17 04:34 ABG HCO3 32 mEq/L (21-27) H 11/26/17 04:34 ABG Total CO2 33 mEq/L (20-26) H 11/26/17 04:34 ABG Base Excess 6 mEq/L (-2 to 3) H 11/26/17 04:34 Potassium 6.4 mEq/L (3.5-5.1) H D 11/26/17 04:39 BUN 40 mg/dL (8-23) H 11/26/17 04:39 Creatinine 5.42 mg/dL (0.60-1.20) H 11/26/17 04:39 Est GFR ( Amer) 9 (> 60) L 11/26/17 04:39 Est GFR (Non-Af Amer) 8 (> 60) L 11/26/17 04:39 POC Glucose 102 (58-89) H 11/26/17 00:39 Troponin I 0.04 ng/mL (< 0.04) H* 11/25/17 12:36 B-Natriuretic Peptide 3339 pg/mL (Less than 100) H 11/25/17 12:36 Fluid Appearance Cloudy (Clear) A 11/25/17 15:07 - Attending Attestation I examined this patient and my medical decision-making was reviewed with the Resident Physician. I agree with the documented findings, disposition and treatment plan as described except to the extent set forth below. Patient seen and examined. Labs, radiology, chart personally reviewed. I was called by emergency room attending to evaluate this patient that she is known to me from outpatient and also recent hospitalization for similar condition. Evaluating care in emergency room if and patient in respiratory distress and arranged bronchoscopy for her as soon as possible to help her to remove this mucous plug and improve her respiratory status, unfortunately due to her severe distress and did not mucous plugs were so thick and not able to remove it and she needed to be intubated, and secure her airway with the help of anesthesiology team she was intubated successfully and subsequently with a lot of efforts we were able to remove significant amount of mucous plugs with instant improvement in oxygenation. Patient was moved to ICU after that for further care. 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 This has stabilized after intubation and bronchoscopy and will have follow-up ABG. We will plan for bronchoscopy tomorrow to inspect the airway before any CPAP trial for extubation. Cardiovascular: Patient with history of hypertension, however with sedation blood pressure is acceptable. GI: Nutrition per dietary and GI prophylaxis per routine Heme: DVT prophylaxis per routine with DVT prophylaxis with mechanical because of patient diagnosis ID: Continue antibiotics and plan to de-escalation Renal; urine out put and renal funtion reviewed. Nephrology to follow up regarding dialysis. Endorcine: blood glucose is monitored Lines: all lines checked and no evidence of infections Skin: skin care to prevent pressure ulcers per nursing routine care I have explained this to the and he understand the situation. I spent 80 min of Critical Care time with this patient. It involved decision making of high complexity to assess, manipulate, and support vital organ system failure and/or to prevent further life threatening deterioration of the patient' s condition. The time involved in the performance of separately reportable procedures was not counted toward critical care time.
[2017-11-25 16:44] LABS: ABG Base Excess 4 mEq/L (-2 to 3); ABG HCO3 29 mEq/L (21-27); ABG Oxygen Saturation 89 % (95-98); ABG PCO2 45 mmHg (35-45); ABG PH 7.42 pH Units (7.32-7.45); ABG PO2 56 mmHg (85-104); ABG TCO2 30 mEq/L (20-26); Blood Gas Modality ASSIST CONTROL; Blood Gas PEEP 5 cm H2O; Blood Gas Respiration Rate 12; Blood Gas VT 500 cc
[2017-11-25] MEDS: 0.9 % Sodium Chloride 1,000 ML IVC SCH (16:47)
[2017-11-25] MEDS: Lacri-Lube 3.5 GM TUBE BOTH EYES SCH ×2 (16:51→21:16)
[2017-11-25] MEDS: FentaNYL (PF) 1,000 MCG in 0.9 % Sodium Chloride 80 ML IVC SCH (17:30)
[2017-11-25] MEDS: cefTRIAXone 2,000 MG in Water for inj. (sterile) 20 ML 20 ML IVP SCH (17:33)
[2017-11-25] MEDS: Budesonide/Formoterol 80/4.5 MDI IH SCH (19:51)
[2017-11-25] MEDS: Chlorhexidine Rinse 15 ML MOUTHWASH MM SCH (21:05)
--- NOTE | 2017-11-26 00:16 | Pulmonology Progress Note ---
<Hermilo Colvin - Last Filed: 11/26/17 05:05> Date of Encounter: 11/26/17 Time of Encounter: 05:05 Assessment and Plan (1) Acute and chronic respiratory failure with hypoxia Current Visit: No Status: Acute 1. Acute and chronic respiratory failure. Likely secondary to mucous plugging which is likely secondary to pneumonia in the setting of COPD. Emergently intubated 11/25/17. Sedation: Propofol gtt Analgesia: Fentanyl gtt RASS goal -1 to 0. 2. Mucus plugging of bronchi. Significant mucous load cleared on bronchoscopy 11/25/17. Chest percussion. Albuterol neb, Symbicort MDI Plan for bronchoscopy today. Pending bronchoscopy results, consider wean to CPAP trial and possible extubation. 3. Pneumonia. Discharged 11/24/17 from [facility] for pneumonia of left lung. Microbiology: 11/25/17 LLL Gram stain: No bacteria. Culture pending 11/25/17 Nasopharyngeal swab: (-) influenza A, B 11/22/17 LAST Resp culture: Serratia marcescens (tx with cefdinir on prior admission) Continue empiric Rocephin coverage until culture results 4. ESRD on dialysis Alcoholic Counselor: Dr. Araujo Nephrology consulted. Scheduled hemodialysis MWF 5. Elevated troponin Intake troponin 0.04. In the ED, she had dyspnea and denied chest pain. EKG was not concerning for ischemic changes on ED read. Clinically suspect combination of ESRD on dialysis with component of demand ischemia secondary from her dyspnea secondary from her mucus plugging. 6. COPD Plan as above 7. Hypertension Currently normotensive. Continue to monitor 8. DVT prophylaxis Intermittent pneumatic compression (2) Mucus plugging of bronchi Current Visit: Yes Status: Acute Plan as above (3) Pneumonia Current Visit: No Status: Acute Plan as above. Qualifiers: Pneumonia type: due to unspecified organism Laterality: left Lung location: lower lobe of lung Qualified Code(s): J18.1 - Lobar pneumonia, unspecified organism (4) COPD (chronic obstructive pulmonary disease) Current Visit: No Status: Chronic Plan as above Qualifiers: COPD type: unspecified COPD Qualified Code(s): J44.9 - Chronic obstructive pulmonary disease, unspecified (5) ESRD on dialysis Current Visit: No Status: Chronic Plan as above (6) Elevated troponin Current Visit: Yes Status: Acute (7) HTN (hypertension) Current Visit: No Status: Chronic Plan as above Qualifiers: Hypertension type: essential hypertension Qualified Code(s): I10 - Essential (primary) hypertension (8) DVT prophylaxis Current Visit: No Status: Acute Plan as above Subjective Interval history: Mrs. Carmona, 77yo female, discharged from [facility] 11/24/17 for pneumonia. Admitted 11/25/17 for dyspnea secondary to bonchial mucous plugging. Emergently intubated with subsequent bronchoscopy removing significant mucous with improvement in oxygenation. Patient continues to do well on the ventilator. No oxygenation or ventilation issues. No sedation issues. Objective PUL Vital signs: Last Vital Signs Temp 98.6 F 11/25/17 23:38 Pulse 75 11/25/17 23:00 Resp 12 11/25/17 23:30 BP 115/55 11/25/17 23:30 Pulse Ox 97 11/25/17 23:30 General appearance: no acute distress, other (intubated, sedated) Eyes: nonicteric ENT: oropharynx moist Neck: supple Effort: other (Mechanical breath sounds with good air entry to the bilateral bases.) Auscultation: bilateral: wheezes (faint), other (Good air entry to bilateral bases.) Cardiovascular: regular rate and rhythm, murmur noted (systolic) Gastrointestinal: normoactive bowel sounds, soft, non-distended Integumentary: normal Extremities: no cyanosis, no edema, no clubbing, pink and warm, pulses normal, no ischemia or petechiae Musculoskeletal: no deformities unable to assess due to mental status Ventilator Settings Ventilator Settings: Ventilator Settings, Last 8 Hours Ventilator Mode VC+ Ventilator Mode VC+ Ventilator Mode VC+ Ventilator Mode VC+ Ventilator Mode VC+ Ventilator Mode VC+ Ventilator Mode VC+ Ventilator Mode VC+ Ventilator Tidal Volume 500 Setting Ventilator Tidal Volume 500 Setting Ventilator Tidal Volume 500 Setting Ventilator Tidal Volume 500 Setting Ventilator Tidal Volume 500 Setting Ventilator Tidal Volume 500 Setting Ventilator Tidal Volume 500 Setting Ventilator Tidal Volume 500 Setting Ventilator Respiratory Rate 12 Setting Ventilator Respiratory Rate 12 Setting Ventilator Respiratory Rate 12 Setting Ventilator Respiratory Rate 12 Setting Ventilator Respiratory Rate 12 Setting Ventilator Respiratory Rate 12 Setting Ventilator Respiratory Rate 12 Setting Ventilator Respiratory Rate 12 Setting Actual Respiratory Rate 12 Actual Respiratory Rate 13 Actual Respiratory Rate 13 Actual Respiratory Rate 12 Actual Respiratory Rate 13 Actual Respiratory Rate 13 Actual Respiratory Rate 12 Actual Respiratory Rate 12 Positive End Expiratory 5 Pressure Positive End Expiratory 5 Pressure Positive End Expiratory 5 Pressure Positive End Expiratory 5 Pressure Positive End Expiratory 5 Pressure Positive End Expiratory 5 Pressure Positive End Expiratory 5 Pressure Positive End Expiratory 5 Pressure Peak Inspiratory Airway 22 Pressure Peak Inspiratory Airway 20 Pressure Peak Inspiratory Airway 20 Pressure Peak Inspiratory Airway 19 Pressure Peak Inspiratory Airway 20 Pressure Peak Inspiratory Airway 20 Pressure Peak Inspiratory Airway 21 Pressure Peak Inspiratory Airway 24 Pressure Results - Laboratory Findings CBC and BMP: 11/25/17 12:36 11/25/17 12:36 ABG ABG pH 7.42 pH Units (7.32-7.45) 11/25/17 16:38 ABG pCO2 45 mmHg (35-45) 11/25/17 16:38 ABG pO2 56 mmHg (85-104) L 11/25/17 16:38 ABG O2 Saturation 89 % (95-98) L 11/25/17 16:38 Abnormal lab findings: Abnormal lab results RBC 3.12 M/mcL (3.82-4.97) L 11/25/17 12:36 Hgb 10.5 g/dL (11.5-15.4) L D 11/25/17 12:36 Hct 31.7 % (35.3-44.9) L 11/25/17 12:36 MCV 101.6 fL (83.0-100.0) H 11/25/17 12:36 MCH 33.7 pg (28.0-33.3) H 11/25/17 12:36 RDW 14.8 % (11.5-14.5) H 11/25/17 12:36 Plt Count 120 K/mcL (140-400) L 11/25/17 12:36 Lymphocytes # 0.4 K/mcL (0.6-4.6) L 11/25/17 12:36 ABG pO2 56 mmHg (85-104) L 11/25/17 16:38 ABG HCO3 29 mEq/L (21-27) H 11/25/17 16:38 ABG Total CO2 30 mEq/L (20-26) H 11/25/17 16:38 ABG O2 Saturation 89 % (95-98) L 11/25/17 16:38 ABG Base Excess 4 mEq/L (-2 to 3) H 11/25/17 16:38 Chloride 96 mEq/L (98-107) L 11/25/17 12:36 BUN 28 mg/dL (8-23) H 11/25/17 12:36 Creatinine 4.10 mg/dL (0.60-1.20) H 11/25/17 12:36 Est GFR ( Amer) 13 (> 60) L 11/25/17 12:36 Est GFR (Non-Af Amer) 11 (> 60) L 11/25/17 12:36 Troponin I 0.04 ng/mL (< 0.04) H* 11/25/17 12:36 B-Natriuretic Peptide 3339 pg/mL (Less than 100) H 11/25/17 12:36 - Microbiology Findings Microbiology Findings: Nasopharyngeal swab 11/25/17 (-) for influenza A & B - Clinical Findings Intake & Output: Intake & Output 11/25/17 11/25/17 11/26/17 15:59 23:59 07:59 Intake Total 100 / 100 Output Total 400 / 400 Balance -300 / -300 Consult Discharge Plan - Plan Referrals: Vladimir Chaidez MD [Primary Care Provider] - <Melinda Mccloud - Last Filed: 11/26/17 07:55> Date of Encounter: 11/26/17 Objective PUL Vital signs: Last Vital Signs Temp 98.9 F 11/26/17 04:46 Pulse 67 11/26/17 06:00 Resp 12 11/26/17 06:00 BP 104/51 11/26/17 07:42 Pulse Ox 95 11/26/17 07:42 Ventilator Settings Ventilator Settings: Ventilator Settings, Last 8 Hours Ventilator Mode A/C Ventilator Mode A/C Ventilator Mode A/C Ventilator Mode A/C Ventilator Mode A/C Ventilator Mode VC+ Ventilator Mode VC+ Ventilator Mode VC+ Ventilator Mode VC+ Ventilator Mode VC+ Ventilator Mode VC+ Ventilator Mode VC+ Ventilator Tidal Volume 500 Setting Ventilator Tidal Volume 500 Setting Ventilator Tidal Volume 500 Setting Ventilator Tidal Volume 500 Setting Ventilator Tidal Volume 500 Setting Ventilator Tidal Volume 500 Setting Ventilator Tidal Volume 500 Setting Ventilator Tidal Volume 500 Setting Ventilator Tidal Volume 500 Setting Ventilator Tidal Volume 500 Setting Ventilator Tidal Volume 500 Setting Ventilator Tidal Volume 500 Setting Ventilator Respiratory Rate 12 Setting Ventilator Respiratory Rate 12 Setting Ventilator Respiratory Rate 12 Setting Ventilator Respiratory Rate 12 Setting Ventilator Respiratory Rate 12 Setting Ventilator Respiratory Rate 12 Setting Ventilator Respiratory Rate 12 Setting Ventilator Respiratory Rate 12 Setting Ventilator Respiratory Rate 12 Setting Ventilator Respiratory Rate 12 Setting Ventilator Respiratory Rate 12 Setting Ventilator Respiratory Rate 12 Setting Actual Respiratory Rate 18 Actual Respiratory Rate 12 Actual Respiratory Rate 12 Actual Respiratory Rate 12 Actual Respiratory Rate 12 Actual Respiratory Rate 12 Actual Respiratory Rate 12 Actual Respiratory Rate 12 Actual Respiratory Rate 12 Actual Respiratory Rate 12 Actual Respiratory Rate 12 Positive End Expiratory 5 Pressure Positive End Expiratory 5 Pressure Positive End Expiratory 5 Pressure Positive End Expiratory 5 Pressure Positive End Expiratory 5 Pressure Positive End Expiratory 5 Pressure Positive End Expiratory 5 Pressure Positive End Expiratory 5 Pressure Positive End Expiratory 5 Pressure Positive End Expiratory 5 Pressure Positive End Expiratory 5 Pressure Positive End Expiratory 5 Pressure Peak Inspiratory Airway 21 Pressure Peak Inspiratory Airway 22 Pressure Peak Inspiratory Airway 22 Pressure Peak Inspiratory Airway 22 Pressure Peak Inspiratory Airway 21 Pressure Peak Inspiratory Airway 20 Pressure Peak Inspiratory Airway 20 Pressure Peak Inspiratory Airway 19 Pressure Peak Inspiratory Airway 27 Pressure Peak Inspiratory Airway 28 Pressure Peak Inspiratory Airway 28 Pressure Results - Laboratory Findings CBC and BMP: 11/26/17 04:39 11/26/17 04:39 ABG ABG pH 7.41 pH Units (7.32-7.45) 11/26/17 04:34 ABG pCO2 50 mmHg (35-45) H 11/26/17 04:34 ABG pO2 96 mmHg (85-104) 11/26/17 04:34 ABG O2 Saturation 97 % (95-98) 11/26/17 04:34 Abnormal lab findings: Abnormal lab results WBC 3.9 K/mcL (4.3-11.1) L 11/26/17 04:39 RBC 2.30 M/mcL (3.82-4.97) L 11/26/17 04:39 Hgb 7.7 g/dL (11.5-15.4) L D 11/26/17 04:39 Hct 23.6 % (35.3-44.9) L 11/26/17 04:39 MCV 102.6 fL (83.0-100.0) H 11/26/17 04:39 MCH 33.5 pg (28.0-33.3) H 11/26/17 04:39 RDW 14.6 % (11.5-14.5) H 11/26/17 04:39 Plt Count 86 K/mcL (140-400) L 11/26/17 04:39 Lymphocytes # 0.3 K/mcL (0.6-4.6) L 11/26/17 04:39 ABG pCO2 50 mmHg (35-45) H 11/26/17 04:34 ABG HCO3 32 mEq/L (21-27) H 11/26/17 04:34 ABG Total CO2 33 mEq/L (20-26) H 11/26/17 04:34 ABG Base Excess 6 mEq/L (-2 to 3) H 11/26/17 04:34 Potassium 6.4 mEq/L (3.5-5.1) H D 11/26/17 04:39 BUN 40 mg/dL (8-23) H 11/26/17 04:39 Creatinine 5.42 mg/dL (0.60-1.20) H 11/26/17 04:39 Est GFR ( Amer) 9 (> 60) L 11/26/17 04:39 Est GFR (Non-Af Amer) 8 (> 60) L 11/26/17 04:39 POC Glucose 102 (58-89) H 11/26/17 00:39 Troponin I 0.04 ng/mL (< 0.04) H* 11/25/17 12:36 B-Natriuretic Peptide 3339 pg/mL (Less than 100) H 11/25/17 12:36 Fluid Appearance Cloudy (Clear) A 11/25/17 15:07 - Clinical Findings Intake & Output: Intake & Output 11/25/17 11/25/17 11/26/17 15:59 23:59 07:59 Intake Total 100 / 100 100 / 100 Output Total 400 / 400 150 / 150 Balance -300 / -300 -50 / -50 Weight 71.9 kg - Attending Attestation I examined this patient and my medical decision-making was reviewed with the Resident Physician. I agree with the documented findings, disposition and treatment plan as described except to the extent set forth below. Patient seen and examined. Labs, radiology, chart personally reviewed. Agree with resident's history and physical, assessment, plan with following comments: RATING EXAMINER: Patient follows commands and she is sedated, Pulmonary: Acceptable oxygenation and ventilation. Plan for bronchoscopy to make sure there is no more mucous plagues before extubation and if she remain stable then she can be transferred to the floor. Cardiovascular: stable GI: Nutrition per dietary and GI prophylaxis per routine Heme: DVT prophylaxis per routine ID: Continue antibiotics and plan to de-escalation Renal; patient will need hemodialysis Endorcine: blood glucose is monitored Lines: all lines checked and no evidence of infections Skin: skin care to prevent pressure ulcers per nursing routine care
[2017-11-26] MEDS: Lacri-Lube 3.5 GM TUBE BOTH EYES SCH ×7 (00:19→23:07)
[2017-11-26 01:46] LABS: Appearance of Body Fluid Cloudy (Clear); Volume of Body Fluid 25 mL
[2017-11-26] MEDS: Acetylcysteine 10% 2 ML INHSOL IH SCH ×5 (03:40→19:48)
[2017-11-26] MEDS: Ipratropium/Albuterol Neb 3 ML IH SCH ×5 (03:40→19:46)
[2017-11-26 04:37] LABS: ABG Base Excess 6 mEq/L (-2 to 3); ABG HCO3 32 mEq/L (21-27); ABG Oxygen Saturation 97 % (95-98); ABG PCO2 50 mmHg (35-45); ABG PH 7.41 pH Units (7.32-7.45); ABG PO2 96 mmHg (85-104); ABG TCO2 33 mEq/L (20-26); Blood Gas Modality ASSIST CONTROL; Blood Gas PEEP 5 cm H2O; Blood Gas Respiration Rate 12; Blood Gas VT 500 cc
[2017-11-26 05:03] LABS: Mean Corpuscular Hemoglobin 33.5 pg (28.0-33.3); Mean Platelet Volume 10.9 fL (9.4-12.4); Segmented Neutrophils % 88.5 %
[2017-11-26 05:04] LABS: Hematocrit 23.6 % (35.3-44.9); Hemoglobin 7.7 g/dL (11.5-15.4); Immature Granulocytes % 0.5 % (0-4); Immature Platelets 4.1 % (1.1-6.1); Lymphocytes # 0.3 K/mcL (0.6-4.6); Lymphocytes % 6.9 %; Mean Corpuscular HGB Conc 32.6 g/dL (31.6-35.5); Mean Corpuscular Volume 102.6 fL (83.0-100.0); Monocytes # 0.2 K/mcL (0.0-1.3); Monocytes % 4.1 %; Neutrophils # 3.5 K/mcL (1.6-8.9); Red Cell Distribution Width 14.6 % (11.5-14.5)
[2017-11-26 05:07] LABS: Platelet Count 86 K/mcL (140-400)
[2017-11-26 05:24] LABS: Calcium 8.8 mg/dL (8.6-10.3); Potassium 6.4 mEq/L (3.5-5.1)
[2017-11-26] MEDS: Budesonide/Formoterol 80/4.5 MDI IH SCH ×2 (08:01→22:08)
[2017-11-26] MEDS ORDERED: 0.9 % Sodium Chloride 250 ML IVC PRN (08:21)
[2017-11-26] MEDS ORDERED: 0.9 % Sodium Chloride 1,000 ML PRIME SCH (08:30)
--- NOTE | 2017-11-26 08:47 | Nephrology Consult Note ---
Date of Encounter: 11/26/17 Time of Encounter: 08:10 Assessment and Plan (1) ESRD on dialysis Current Visit: No Status: Chronic Acute on chronic respiratory failure, PNA-serratia, on Ceftriaxone. ESRD-HD today, orders given. History of Present Illness - Reason for Consult end stage renal disease - History of Present Illness Ms. Carmona is a 77 year old female with ESRD who dialyzes at [facility] on MWF, last dialysis on Tuesday. Other PMH-asthma, COPD, DVT, hyperlipidemia, hypertension, osteoporosis. Ms. Carmona did present at dialysis unit yesterday but did not dialyze due to respiratory difficulty. Discharged from [facility] on Nov 24 with acute and chronic respiratory failure with hypoxia secondary to pneumonia/serratia and mucous plugging. S/P bronch for mucous plug. Currently in ICU, intubated, sedated. Having repeat bronch this morning with plans to extubate later today. Past Med Surg Social Fam HX - Past Medical History Medical history: asthma, COPD, DVT, dialysis, hyperlipidemia, hypertension, osteoporosis, renal disease Psychiatric history: no psych history - Past Surgical History Surgical History: other - Social History Smoking Status: Former smoker Smokeless Tobacco Status: No Alcohol use: none Drug use: none - Family History Mother Living Status: Hx Family Cardiac Disorders: No Hx Family Respiratory Disorders: No Hx Family Cancer: Yes (Colon) Hx Family GI Disorders: No Hx Family Endocrine Disorder: Yes (Borderline DM) Hx Family Neuromuscular Disorders: No Hx Family Neurologic Disorders: No Hx Family HEENT Disorders: No Hx Family Autoimmune Disorders: No Medications and Allergies Albuterol Sulfate [Ventolin Hfa] 2 puff IH Q4H PRN 10/12/16 [History] Allopurinol [Zyloprim] 100 mg PO DAILY 10/12/16 [History] Aspirin 81 mg PO DAILY 10/12/16 [History] Atorvastatin [Lipitor] 40 mg PO HS 10/12/16 [History] Budesonide/Formoterol 160/4.5 [Symbicort 160/4.5] 2 puff IH BIDR 10/12/16 [ History] Cholecalciferol (Vitamin D3) [Vitamin D3] 2,000 unit PO DAILY 10/12/16 [History] Furosemide [Lasix] 20 mg PO QPM 10/12/16 [History] Furosemide [Lasix] 40 mg PO QAM 10/12/16 [History] Ipratropium Malone 2 spray NS BID 01/14/17 [History] Levothyroxine [Synthroid] 25 mcg PO DAILY 01/14/17 [History] Metoprolol XL (24 HR) Succ [Toprol Xl] 50 mg PO DAILY 01/14/17 [History] Multivitamin [Multi-Day Vitamins] 1 tab PO DAILY 01/14/17 [History] Acetylcysteine [C-Xzlfgi-h-Cysteine] 600 mg PO TID 03/11/17 [History] HYDROcodone/Acet 5/325 mg [Parker 5-325 mg] 1 tab PO TID PRN 03/11/17 [History] Loratadine [Claritin] 10 mg PO DAILY 03/11/17 [History] Sevelamer [Renvela] 1,600 mg PO TIDWM 03/11/17 [History] Tizanidine HCl 4 mg PO TID PRN 03/11/17 [History] Losartan [Cozaar] 50 mg PO BID #60 tablet 03/14/17 [Rx] amLODIPine [Norvasc] 10 mg PO DAILY #30 tablet 03/14/17 [Rx] Pregabalin [Lyrica] 50 mg PO BID 11/22/17 [History] Benzonatate [Tessalon] 100 mg PO TID PRN #12 capsule 11/24/17 [Rx] Cefdinir [Omnicef] 300 mg PO DAILY #4 capsule 11/24/17 [Rx] Guaifenesin [Mucinex] 600 mg PO BID PRN #8 tab.er.12h 11/24/17 [Rx] 3 Allergy/AdvReac Type Severity Reaction Status Date / Time codeine Allergy Rash Verified 11/25/17 14:42 gabapentin Allergy Itching Verified 11/25/17 14:42 Review of Systems ROS unobtainable: due to endotracheal tube Exam - Vital Signs Vital signs: Initial Vital Signs Temp Pulse Resp BP Pulse Ox 98.2 F 88 26 177/83 83 11/25/17 12:23 11/25/17 12:23 11/25/17 12:23 11/25/17 12:23 11/25/17 12:23 Vital Signs - Last 8 Hours Temp Pulse Resp BP Pulse Ox 11/26/17 08:00 97.8 F 11/26/17 07:42 104/51 95 11/26/17 06:00 67 12 106/51 96 11/26/17 05:58 12 106/51 96 11/26/17 05:00 68 12 105/51 96 11/26/17 04:46 98.9 F 11/26/17 04:00 98.7 F 69 12 102/51 98 11/26/17 03:40 12 102/51 98 11/26/17 03:14 97 11/26/17 03:00 67 12 102/51 97 11/26/17 02:00 71 12 100/50 97 11/26/17 01:18 12 100/50 97 11/26/17 01:00 74 12 100/50 97 Intake and Output 11/25/17 11/26/17 11/26/17 23:59 07:59 15:59 Intake Total 100 / 100 100 / 100 Output Total 400 / 400 150 / 150 0 / 0 Balance -300 / -300 -50 / -50 0 / 0 Intake: IV Fluids 100 / 100 100 / 100 FentaNYL (PF) 1,000 MCG In 0.9 0 / 0 % Sodium Chloride 80 ML @ 50 MCG/HR 5 mls/hr IVC CONT HUSSEIN Rx #:[id number] Diprivan 1,000 mg In 100 ml @ 5 100 / 100 100 / 100 MCG/KG/MIN 2 mls/hr IVC .Q24H HUSSEIN Rx#:[id number] Output: Urine 400 / 400 Catheter 100 / 100 0 / 0 Gastric Drainage 50 / 50 Other: Weight 71.9 kg Blood Glucose* 107 113 95 Patient Weight 11/26/17 23:59 Weight 71.9 kg - General Appearance General appearance: well-developed, well-nourished, appears started age EENT: mucous membranes moist Neck: no JVD Respiratory: wheezing Cardiology: edema, regular rate, regular rhythm Gastrointestinal: hypoactive bowel sounds Integumentary: warm and dry Results - Lab Results 11/26/17 04:39 11/26/17 04:39 Most recent lab results ABG pH 7.41 pH Units (7.32-7.45) 11/26/17 04:34 ABG pCO2 50 mmHg (35-45) H 11/26/17 04:34 ABG pO2 96 mmHg (85-104) 11/26/17 04:34 ABG HCO3 32 mEq/L (21-27) H 11/26/17 04:34 ABG O2 Saturation 97 % (95-98) 11/26/17 04:34 Calcium 8.8 mg/dL (8.6-10.3) 11/26/17 04:39 Consult Discharge Plan - Plan Referrals: Vladimir Chaidez MD [Primary Care Provider] -
[2017-11-26] MEDS: Chlorhexidine Rinse 15 ML MOUTHWASH MM SCH ×2 (08:56→23:06)
--- NOTE | 2017-11-26 09:10 | Procedure Note ---
Date of procedure: 11/26/17 Pre-op diagnosis: Pneumonia and mucous plugs Post-op diagnosis: same Procedure: Bronchoscopy Indication: Mucous plugs and pneumonia Medications: Patient is on the ICU on propofol and fentanyl drip for sedation on the ventilator and also 10% acetylcysteine. Procedure: After obtaining informed consent, the bronchoscope reduced through the endotracheal tube and advanced to the tracheobronchial tree. With left flank abnormalities and can with notable mucous plaques and bronchiectatic changes in the left lower lobe with mucous plaques was successfully cleaned without immediate complications. Patient tolerated procedure very well. The total duration of the procedure was 8 minutes. Impression: Recurrent mucous plugs was successfully cleaned Recommendations: Patient will be extubated with pulmonary toilet. She might need the vest. Surgeon: Melinda Mccloud Was there an therapist's assistant present: No Estimated blood loss (cc): 0 Specimen: none Pathology: none sent Condition: stable
[2017-11-26] MEDS: 0.9 % Sodium Chloride 1,000 ML IVC SCH ×2 (12:13→23:07)
[2017-11-26] MEDS: FentaNYL (PF) 1,000 MCG in 0.9 % Sodium Chloride 80 ML IVC SCH (16:10)
[2017-11-26] MEDS: cefTRIAXone 2,000 MG in Water for inj. (sterile) 20 ML 20 ML IVP SCH (16:13)
--- NOTE | 2017-11-26 21:46 | Pulmonology Progress Note ---
<Hermilo Colvin - Last Filed: 11/27/17 07:09> Date of Encounter: 11/27/17 Time of Encounter: 07:02 Assessment and Plan (1) Acute and chronic respiratory failure with hypoxia Current Visit: No Status: Acute 1. Acute and chronic respiratory failure. Likely secondary to mucous plugging which is likely secondary to pneumonia in the setting of COPD. Emergently intubated 11/25/17. Extubated after bronchoscopy 11/26. Now 4L NC and comfortable. Plan for transfer to step-down from ICU. 2. Mucus plugging of bronchi. Significant mucous load cleared on bronchoscopy 11/25/17. Chest percussion. Albuterol neb, Symbicort MDI 3. Pneumonia. Discharged 11/24/[address] [facility] for pneumonia of left lung. Microbiology: 11/25/17 LLL Gram stain: No bacteria. Culture pending 11/25/17 Nasopharyngeal swab: (-) influenza A, B 11/22/17 LAST Resp culture: Serratia marcescens (tx with cefdinir on prior admission) Continue empiric Rocephin coverage until culture results 4. Atrial fibrillation with RVR A. Fib RVR to 140's overnight converted to NSR with paroxysmal A. Fib after lopressor 5mg IV x1. Started home metoprolol and amlodipine. AM labs: TSH, Mg Echo pending Holding home aspirin secondary to anemia. No home anticoagulation. Cardiology consulted. 5. 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 Araujo Nephrology consulted. Scheduled hemodialysis MWF; incomplete outpt dialysis Fri. Completed inpatient dialysis Sat 11/26. Hgb 8.5 (7.7, 10.5), K+ 4.2 (6.4, 4.2), Cr 3.92 (5.42, 4.10). 6. Elevated troponin Intake troponin 0.04. In the ED, she had dyspnea and denied chest pain. EKG was not concerning for ischemic changes on ED read. Clinically suspect combination of ESRD on dialysis with component of demand ischemia secondary from her dyspnea secondary from her mucus plugging. 7. COPD Plan as above 8. Hypertension Currently normotensive. Continue to monitor 9. DVT prophylaxis Intermittent pneumatic compression (2) Mucus plugging of bronchi Current Visit: Yes Status: Acute Plan as above (3) Pneumonia Current Visit: No Status: Acute Plan as above. Qualifiers: Pneumonia type: due to unspecified organism Laterality: left Lung location: lower lobe of lung Qualified Code(s): J18.1 - Lobar pneumonia, unspecified organism (4) Atrial fibrillation with RVR Current Visit: Yes Status: Acute Plan as above. (5) COPD (chronic obstructive pulmonary disease) Current Visit: No Status: Chronic Plan as above Qualifiers: COPD type: unspecified COPD Qualified Code(s): J44.9 - Chronic obstructive pulmonary disease, unspecified (6) ESRD on dialysis Current Visit: No Status: Chronic Plan as above (7) Elevated troponin Current Visit: Yes Status: Acute (8) HTN (hypertension) Current Visit: No Status: Chronic Plan as above Qualifiers: Hypertension type: essential hypertension Qualified Code(s): I10 - Essential (primary) hypertension (9) DVT prophylaxis Current Visit: No Status: Acute Plan as above Subjective Interval history: Mrs. Carmona, 77yo female, discharged from [facility] 11/24/17 for pneumonia. Admitted 11/25/17 for dyspnea secondary to bonchial mucous plugging. Emergently intubated with subsequent bronchoscopy removing significant mucous with improvement in oxygenation. Hospital day 2 Patient continues to do well. Extubated yesterday after bronchoscopy and removal of mucous plugs. Now on 4L NC and comfortable. Monitoring Hgb and electrolytes; Hgb increased to 8.5 from 7.7. Suspect derangement as patient did not complete her Tuesday dialysis. She had dialysis yesterday. Monitoring labwork. Objective PUL Vital signs: Last Vital Signs Temp 98.4 F 11/26/17 19:40 Pulse 91 11/26/17 21:00 Resp 16 11/26/17 21:00 BP 154/70 11/26/17 21:00 Pulse Ox 92 11/26/17 21:00 General appearance: no acute distress, alert Eyes: nonicteric ENT: oropharynx moist Neck: supple Effort: normal Auscultation: right: diminished breath sounds, bilateral: clear, other (good air entry to bilateral bases) Cardiovascular: regular rate and rhythm Gastrointestinal: normoactive bowel sounds, soft, non-tender, other (Left lower quadrant hernia - soft, nontender, reducable.) Extremities: no cyanosis, no edema, no clubbing, pink and warm, pulses normal Musculoskeletal: no deformities normal mental status, pupils equal and round, other (intubated, minimal sedation ) mood appropriate Results - Laboratory Findings CBC and BMP: 11/27/17 03:48 11/27/17 03:48 ABG ABG pH 7.41 pH Units (7.32-7.45) 11/26/17 04:34 ABG pCO2 50 mmHg (35-45) H 11/26/17 04:34 ABG pO2 96 mmHg (85-104) 11/26/17 04:34 ABG O2 Saturation 97 % (95-98) 11/26/17 04:34 Abnormal lab findings: Abnormal lab results WBC 3.9 K/mcL (4.3-11.1) L 11/26/17 04:39 RBC 2.30 M/mcL (3.82-4.97) L 11/26/17 04:39 Hgb 7.7 g/dL (11.5-15.4) L D 11/26/17 04:39 Hct 23.6 % (35.3-44.9) L 11/26/17 04:39 MCV 102.6 fL (83.0-100.0) H 11/26/17 04:39 MCH 33.5 pg (28.0-33.3) H 11/26/17 04:39 RDW 14.6 % (11.5-14.5) H 11/26/17 04:39 Plt Count 86 K/mcL (140-400) L 11/26/17 04:39 Lymphocytes # 0.3 K/mcL (0.6-4.6) L 11/26/17 04:39 ABG pCO2 50 mmHg (35-45) H 11/26/17 04:34 ABG HCO3 32 mEq/L (21-27) H 11/26/17 04:34 ABG Total CO2 33 mEq/L (20-26) H 11/26/17 04:34 ABG Base Excess 6 mEq/L (-2 to 3) H 11/26/17 04:34 Potassium 6.4 mEq/L (3.5-5.1) H D 11/26/17 04:39 BUN 40 mg/dL (8-23) H 11/26/17 04:39 Creatinine 5.42 mg/dL (0.60-1.20) H 11/26/17 04:39 Est GFR ( Amer) 9 (> 60) L 11/26/17 04:39 Est GFR (Non-Af Amer) 8 (> 60) L 11/26/17 04:39 POC Glucose 102 (58-89) H 11/26/17 00:39 Troponin I 0.04 ng/mL (< 0.04) H* 11/25/17 12:36 B-Natriuretic Peptide 3339 pg/mL (Less than 100) H 11/25/17 12:36 Fluid Appearance Cloudy (Clear) A 11/25/17 15:07 Stool Occult Blood Positive (Negative) A 11/26/17 21:00 - Diagnostic Findings Additional studies: EKG dated 27 Nov 2017 at 03:00 interpreted as atrial fibrillation with rate of 101. No p-waves present. Rate irregular. Compared to previous EKG 11/22 which shows sinus rhythm. - Clinical Findings Intake & Output: Intake & Output 11/26/17 11/26/17 11/26/17 07:59 15:59 23:59 Intake Total 100 / 100 700 / 700 240 / 240 Output Total 150 / 150 2600 / 2600 0 / 0 Balance -50 / -50 -1900 / -1900 240 / 240 Weight 71.9 kg Consult Discharge Plan - Plan Referrals: Vladimir Chaidez MD [Primary Care Provider] - <Melinda Mccloud - Last Filed: 11/27/17 09:57> Date of Encounter: 11/27/17 Objective PUL Vital signs: Last Vital Signs Temp 98.5 F 11/27/17 08:09 Pulse 111 11/27/17 08:00 Resp 16 11/27/17 08:00 BP 159/90 11/27/17 08:00 Pulse Ox 89 11/27/17 08:00 Results - Laboratory Findings CBC and BMP: 11/27/17 03:48 11/27/17 03:48 ABG ABG pH 7.41 pH Units (7.32-7.45) 11/26/17 04:34 ABG pCO2 50 mmHg (35-45) H 11/26/17 04:34 ABG pO2 96 mmHg (85-104) 11/26/17 04:34 ABG O2 Saturation 97 % (95-98) 11/26/17 04:34 Abnormal lab findings: Abnormal lab results RBC 2.53 M/mcL (3.82-4.97) L 11/27/17 03:48 Hgb 8.5 g/dL (11.5-15.4) L 11/27/17 03:48 Hct 25.6 % (35.3-44.9) L 11/27/17 03:48 MCV 101.2 fL (83.0-100.0) H 11/27/17 03:48 MCH 33.6 pg (28.0-33.3) H 11/27/17 03:48 Plt Count 109 K/mcL (140-400) L 11/27/17 03:48 ABG pCO2 50 mmHg (35-45) H 11/26/17 04:34 ABG HCO3 32 mEq/L (21-27) H 11/26/17 04:34 ABG Total CO2 33 mEq/L (20-26) H 11/26/17 04:34 ABG Base Excess 6 mEq/L (-2 to 3) H 11/26/17 04:34 Sodium 131 mEq/L (136-145) L 11/27/17 03:48 Chloride 91 mEq/L (98-107) L 11/27/17 03:48 Carbon Dioxide 31 mEq/L (23-29) H 11/27/17 03:48 BUN 25 mg/dL (8-23) H 11/27/17 03:48 Creatinine 3.92 mg/dL (0.60-1.20) H 11/27/17 03:48 Est GFR ( Amer) 14 (> 60) L 11/27/17 03:48 Est GFR (Non-Af Amer) 11 (> 60) L 11/27/17 03:48 POC Glucose 98 (58-89) H 11/27/17 07:28 Calculated Osmolality 276 (280-300) L 11/27/17 03:48 Troponin I 0.04 ng/mL (< 0.04) H* 11/25/17 12:36 B-Natriuretic Peptide 3339 pg/mL (Less than 100) H 11/25/17 12:36 TSH 7.969 mcIU/mL (0.340-5.600) H 11/27/17 03:48 Fluid Appearance Cloudy (Clear) A 11/25/17 15:07 Stool Occult Blood Positive (Negative) A 11/26/17 21:00 - Clinical Findings Intake & Output: Intake & Output 11/26/17 11/27/17 11/27/17 23:59 07:59 15:59 Intake Total 480 / 480 Output Total 0 / 0 0 / 0 0 / 0 Balance 480 / 480 0 / 0 0 / 0 - Attending Attestation I examined this patient and my medical decision-making was reviewed with the Resident Physician. I agree with the documented findings, disposition and treatment plan as described except to the extent set forth below. Patient seen and examined. Labs, radiology, chart personally reviewed. 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 Patient to be on chest PT Cardiovascular: Patient with A.fib and to resume her home medications and cardiology evaluation GI: Nutrition per dietary and GI prophylaxis per routine. Heme: DVT prophylaxis per routine ID: Continue antibiotics and plan to de-escalation Renal; HD per nephrology Endorcine: blood glucose is monitored Lines: all lines checked and no evidence of infections Skin: skin care to prevent pressure ulcers per nursing routine care Continue monitoring in ICU for next 24 hours because of her cardiopulmonary diseases.
[2017-11-27] MEDS: Ipratropium/Albuterol Neb 3 ML IH SCH ×2 (00:10→04:54)
[2017-11-27] MEDS: Acetylcysteine 10% 2 ML INHSOL IH SCH ×5 (00:10→21:49)
[2017-11-27] MEDS ORDERED: *HR* Metoprolol 5 MG/5 ML VIAL IVP ONE ×2 (02:23→02:24)
[2017-11-27] MEDS ORDERED: Metoprolol XL (24 HR) Succ 50 MG TAB.ER.24H PO SCH ×2 (02:38→09:00)
[2017-11-27] MEDS: amLODIPine 5 MG TABLET PO SCH ×2 (03:30→08:47)
[2017-11-27 04:18] LABS: Basophils % 0.2 %; Eosinophils # 0.1 K/mcL (0.0-0.6); Eosinophils % 1.1 %; Hematocrit 25.6 % (35.3-44.9); Hemoglobin 8.5 g/dL (11.5-15.4); Immature Granulocytes % 0.5 % (0-4); Lymphocytes # 0.7 K/mcL (0.6-4.6); Lymphocytes % 16.3 %; Mean Corpuscular HGB Conc 33.2 g/dL (31.6-35.5); Mean Corpuscular Hemoglobin 33.6 pg (28.0-33.3); Mean Corpuscular Volume 101.2 fL (83.0-100.0); Mean Platelet Volume 10.6 fL (9.4-12.4); Monocytes # 0.4 K/mcL (0.0-1.3); Monocytes % 8.7 %; Neutrophils # 3.2 K/mcL (1.6-8.9); Platelet Count 109 K/mcL (140-400); Red Blood Count 2.53 M/mcL (3.82-4.97); Red Cell Distribution Width 14.4 % (11.5-14.5); Segmented Neutrophils % 73.2 %
[2017-11-27 04:51] LABS: Thyroid Stimulating Hormone 7.969 mcIU/mL (0.340-5.600)
[2017-11-27] MEDS: Lacri-Lube 3.5 GM TUBE BOTH EYES SCH (05:06)
[2017-11-27] MEDS: Acetaminophen 325 MG TABLET PO PRN ×2 (05:07→13:51)
[2017-11-27 05:25] LABS: Calcium 9.6 mg/dL (8.6-10.3); Potassium 4.2 mEq/L (3.5-5.1)
[2017-11-27] MEDS ORDERED: Acetylcysteine 10% 2 ML INHSOL IH SCH (08:00)
--- NOTE | 2017-11-27 08:42 | Nephrology Progress Note ---
Date of Encounter: 11/27/17 Time of Encounter: 08:15 - Assessment and Plan (1) ESRD on dialysis Current Visit: No Status: Chronic Acute on chronic respiratory failure, PNA-serratia, on Ceftriaxone. ESRD- No HD today, keeping MWF schedule. Subjective Interval history: Extubated. O2 NC. S/P bronch yesterday for mucous plugging. Objective - Vital Signs Vital signs: Vital Signs Temp Pulse Resp BP Pulse Ox 11/27/17 08:09 98.5 F 11/27/17 08:00 111 16 159/90 89 11/27/17 07:00 112 18 159/90 89 11/27/17 05:50 113 18 163/99 95 11/27/17 05:00 110 18 161/99 95 11/27/17 04:54 18 92 11/27/17 04:00 112 16 161/99 86 11/27/17 03:18 98.6 F 11/27/17 02:56 120 16 164/94 95 11/27/17 02:51 120 11/27/17 02:00 141 16 148/99 94 11/27/17 01:00 123 16 162/94 94 11/27/17 00:13 16 94 11/26/17 23:59 98.9 F 79 16 164/76 92 11/26/17 23:21 87 11/26/17 23:00 85 16 164/76 92 11/26/17 22:10 16 92 11/26/17 22:00 86 20 167/80 93 11/26/17 21:00 91 16 154/70 92 11/26/17 20:00 90 16 167/78 92 11/26/17 19:50 16 92 11/26/17 19:40 98.4 F 11/26/17 19:00 82 16 148/72 92 11/26/17 18:00 82 18 132/63 93 11/26/17 17:00 96 18 149/75 96 11/26/17 16:00 98.7 F 84 18 163/69 93 11/26/17 15:50 16 95 11/26/17 15:00 84 18 160/67 93 11/26/17 14:07 85 20 142/64 100 11/26/17 13:15 97.6 F 20 150/72 11/26/17 13:00 75 20 146/70 100 11/26/17 12:55 145/76 11/26/17 12:40 146/71 11/26/17 12:25 139/70 11/26/17 12:10 139/66 11/26/17 12:00 97.6 F 80 18 137/68 100 11/26/17 11:55 133/64 11/26/17 11:40 137/63 11/26/17 11:39 20 99 11/26/17 11:25 138/66 11/26/17 11:10 141/70 11/26/17 11:00 80 18 137/68 100 11/26/17 10:55 140/66 11/26/17 10:40 145/62 11/26/17 10:25 145/63 11/26/17 10:10 147/67 11/26/17 10:00 90 18 147/67 91 11/26/17 09:55 97.8 F 18 139/59 11/26/17 09:44 15 91 11/26/17 09:39 20 140/61 95 11/26/17 09:00 86 15 144/65 91 Intake and Output 11/26/17 11/27/17 11/27/17 23:59 07:59 15:59 Intake Total 480 / 480 Output Total 0 / 0 0 / 0 0 / 0 Balance 480 / 480 0 / 0 0 / 0 Intake: Oral 480 / 480 Output: Catheter 0 / 0 0 / 0 0 / 0 Other: Meal Dinner Percent of Meal Consumed 100% Blood Glucose* 105 105 98 - General Appearance General appearance: Present: well-developed, well-nourished, appears started age EENT: Present: mucous membranes moist Neck: Present: no JVD Respiratory: Present: rhonchi Additional Comments: diminished Cardiology: Present: edema, regular rate, regular rhythm Gastrointestinal: Present: normoactive bowel sounds, no tenderness Integumentary: Present: warm and dry Neurologic: Present: alert and oriented x3 - Lab 11/27/17 03:48 11/27/17 03:48 Most recent lab results ABG pH 7.41 pH Units (7.32-7.45) 11/26/17 04:34 ABG pCO2 50 mmHg (35-45) H 11/26/17 04:34 ABG pO2 96 mmHg (85-104) 11/26/17 04:34 ABG HCO3 32 mEq/L (21-27) H 11/26/17 04:34 ABG O2 Saturation 97 % (95-98) 11/26/17 04:34 Calcium 9.6 mg/dL (8.6-10.3) 11/27/17 03:48 Magnesium 2.0 mg/dL (1.6-2.6) 11/27/17 03:48 Consult Discharge Plan - Plan Referrals: Vladimir Chaidez MD [Primary Care Provider] -
[2017-11-27] MEDS: Metoprolol XL (24 HR) Succ 50 MG TAB.ER.24H PO SCH ×2 (08:47→19:31)
[2017-11-27] MEDS ORDERED: amLODIPine 5 MG TABLET PO SCH (09:00)
[2017-11-27] MEDS: Levalbuterol Neb 1.25 MG/3 ML IH SCH ×3 (09:29→21:49)
[2017-11-27] MEDS: Budesonide/Formoterol 80/4.5 MDI IH SCH ×2 (09:29→21:49)
--- NOTE | 2017-11-27 09:35 | Cardiology Consult Note ---
Date of Encounter: 11/27/17 Time of Encounter: 08:57 Assessment and Plan (1) PAF (paroxysmal atrial fibrillation) Current Visit: Yes Status: Acute Paroxysmal atrial fibrillation in the setting of pneumonia/mucous plugging and anemia. Currently appears to be in NSR. Will request repeat ECG. Noted hemoccult positive. No chest pain or discomfort, palpitions reported. No known prior history of AF. CHADS-VASc - Age, Female, HTN. Given anemia, hemoccult positive - not an ideal candidate for anticoagulation. Recommend at least aspirin when able, start AC if/when it becomes possible. Continue BB therapy. No further inpatient cardiology recommendations. Please call with any questions or concerns. Cardiology will sign off. Your medical management regarding respiratory issues, abnormal TSH, ESRD. Discussion w patient/family: The assessment and plan as outlined above was discussed with the patient and/or family members who expressed understanding and agreement. All questions were answered. Thank you for involving us in the care of your patient. Please call with any questions. History of Present Illness Consult date: 11/27/17 Requesting physician: Melinda Mccloud Consult reason: AF Chief complaint: Respiratory issues History of present illness: Ms. Carmona is a 77 year old female admitted for respiratory insufficiency. Diagnosed with pneumonia. Mucous plugging noted; bronchoscopy performed. Per reports, oxygenation improved. Anemia noted, Hg improving. Occult positive. Consultation requested regarding AF. ECGs reviewed: Possible paroxysmal atrial flutter/fibrillation. Past Med Surg Social Fam HX - Past Medical History Medical history: asthma, COPD, DVT, dialysis, hyperlipidemia, hypertension, osteoporosis, renal disease Psychiatric history: no psych history - Past Surgical History Surgical History: other - Social History Smoking Status: Former smoker Smokeless Tobacco Status: No Alcohol use: none Drug use: none - Family History Mother Living Status: Hx Family Cardiac Disorders: No Hx Family Respiratory Disorders: No Hx Family Cancer: Yes (Colon) Hx Family GI Disorders: No Hx Family Endocrine Disorder: Yes (Borderline DM) Hx Family Neuromuscular Disorders: No Hx Family Neurologic Disorders: No Hx Family HEENT Disorders: No Hx Family Autoimmune Disorders: No Medications and Allergies RX: Albuterol Sulfate [Ventolin Hfa] 2 puff IH Q4H PRN 10/12/16 [History] RX: Allopurinol [Zyloprim] 100 mg PO DAILY 10/12/16 [History] RX: Aspirin 81 mg PO DAILY 10/12/16 [History] RX: Atorvastatin [Lipitor] 40 mg PO HS 10/12/16 [History] RX: Budesonide/Formoterol 160/4.5 [Symbicort 160/4.5] 2 puff IH BIDR 10/12/16 [ History] RX: Cholecalciferol (Vitamin D3) [Vitamin D3] 2,000 unit PO DAILY 10/12/16 [ History] RX: Furosemide [Lasix] 20 mg PO QPM 10/12/16 [History] RX: Furosemide [Lasix] 40 mg PO QAM 10/12/16 [History] RX: Ipratropium [place] 2 spray NS BID 01/14/17 [History] RX: Levothyroxine [Synthroid] 25 mcg PO DAILY 01/14/17 [History] RX: Metoprolol XL (24 HR) Succ [Toprol Xl] 50 mg PO DAILY 01/14/17 [History] RX: Multivitamin [Multi-Day Vitamins] 1 tab PO DAILY 01/14/17 [History] RX: Acetylcysteine [Z-Cqjkrs-u-Cysteine] 600 mg PO TID 03/11/17 [History] RX: HYDROcodone/Acet 5/325 mg [Cisco 5-325 mg] 1 tab PO TID PRN 03/11/17 [ History] RX: Loratadine [Claritin] 10 mg PO DAILY 03/11/17 [History] RX: Sevelamer [Renvela] 1,600 mg PO TIDWM 03/11/17 [History] RX: Tizanidine HCl 4 mg PO TID PRN 03/11/17 [History] RX: Losartan [Cozaar] 50 mg PO BID #60 tablet 03/14/17 [Rx] RX: amLODIPine [Norvasc] 10 mg PO DAILY #30 tablet 03/14/17 [Rx] RX: Pregabalin [Lyrica] 50 mg PO BID 11/22/17 [History] Benzonatate [Tessalon] 100 mg PO TID PRN #12 capsule 11/24/17 [Rx] Guaifenesin [Mucinex] 600 mg PO BID PRN #8 tab.er.12h 11/24/17 [Rx] RX: Cefdinir [Omnicef] 300 mg PO DAILY #4 capsule 11/24/17 [Rx] 3 Allergy/AdvReac Type Severity Reaction Status Date / Time codeine Allergy Rash Verified 11/25/17 14:42 gabapentin Allergy Itching Verified 11/25/17 14:42 All Systems Review: A 10-system review of systems was performed and is negative for pertinent findings except as documented above in the HPI. Physical Examination Vital Signs, Last 4 Hours Temp Pulse Resp BP Pulse Ox 11/27/17 08:09 98.5 F 11/27/17 08:00 111 16 159/90 89 11/27/17 07:00 112 18 159/90 89 11/27/17 05:50 113 18 163/99 95 11/27/17 05:00 110 18 161/99 95 General: Conversant, No Apparent Distress HEENT: Atraumatic, Normocephaly, Mucus Membranes Moist Neck: No JVD Cardiac: Reg Rate and Rhythm, Normal S1 and S2, Other (Mild ana cristina) Lungs: Other (Shallow, mostly clear) Abdomen: Soft, Non-Tender Skin: No rashes noted on visualized skin Musculoskeletal: No Chest Wall Tenderness Extremities: No Clubbing, No Cyanosis, No Edema Results 11/27/17 03:48 11/27/17 03:48 Lab Results 11/27/17 11/27/17 11/27/17 03:48 03:48 03:48 WBC 4.4 Hgb 8.5 L Hct 25.6 L Plt Count 109 L Sodium 131 L Potassium 4.2 D Chloride 91 L Carbon Dioxide 31 H BUN 25 H Creatinine 3.92 H Glucose 96 Calcium 9.6 Magnesium 2.0 TSH 7.969 H - Imaging and Cardiology Echo: report reviewed - EKG Interpretation EKG results cardiology: personally reviewed Consult Discharge Plan - Plan Referrals: Vladimir Chaidez MD [Primary Care Provider] -
[2017-11-27] MEDS: MethylPREDNISolone 40 MG/ML VIAL IVP SCH ×2 (16:14→23:40)
[2017-11-27] MEDS: cefTRIAXone 2,000 MG in Water for inj. (sterile) 20 ML 20 ML IVP SCH (16:15)
[2017-11-27] MEDS: FentaNYL (PF) 1,000 MCG in 0.9 % Sodium Chloride 80 ML IVC SCH (19:28)
[2017-11-27] MEDS: Pregabalin 50 MG CAPSULE PO SCH (19:31)
--- NOTE | 2017-11-27 23:27 | Pulmonology Progress Note ---
<Hermilo Colvin - Last Filed: 11/28/17 06:15> Date of Encounter: 11/28/17 Time of Encounter: 06:15 Assessment and Plan (1) Acute and chronic respiratory failure with hypoxia Current Visit: No Status: Acute 1. Acute and chronic respiratory failure. Likely secondary to mucous plugging which is likely secondary to pneumonia in the setting of COPD. Emergently intubated 11/25/17. Extubated after bronchoscopy 11/26. Now 4L NC and comfortable. Plan for transfer to step-down from ICU. 2. Mucus plugging of bronchi. Significant mucous load cleared on bronchoscopy 11/25/17. Chest percussion & agressive pulmonary toilet. Incentive spirometry. Albuterol neb, Symbicort MDI 3. Pneumonia. Discharged 11/24/17 from [facility] for pneumonia of left lung. Microbiology: 11/25/17 LLL Gram stain: No bacteria. Culture pending 11/25/17 Nasopharyngeal swab: (-) influenza A, B 11/22/17 LAST Resp culture: Serratia marcescens (tx with cefdinir on prior admission) Continue empiric Rocephin coverage until culture results 4. Atrial fibrillation with RVR A. Fib RVR to 140's overnight converted to NSR with paroxysmal A. Fib after lopressor 5mg IV x1. Started home metoprolol and amlodipine. AM labs: TSH, Mg Echo pending Holding home aspirin secondary to anemia. No home anticoagulation. Cardiology consulted. 5. ESRD on dialysis Critical Care Specialist: Dr. Araujo Nephrology consulted. Scheduled hemodialysis MWF; incomplete outpt dialysis Fri. Completed inpatient dialysis Sat 11/26. Hgb 10.0 (8.5), K+ 5.7 (4.2), Cr 5.96 (3.92) 6. Elevated troponin Intake troponin 0.04. In the ED, she had dyspnea and denied chest pain. EKG was not concerning for ischemic changes on ED read. Clinically suspect combination of ESRD on dialysis with component of demand ischemia secondary from her dyspnea secondary from her mucus plugging. 7. COPD Plan as above 8. Hypertension Currently normotensive. Continue to monitor 9. DVT prophylaxis Intermittent pneumatic compression (2) Mucus plugging of bronchi Current Visit: Yes Status: Acute Plan as above (3) Pneumonia Current Visit: No Status: Acute Plan as above. Qualifiers: Pneumonia type: due to unspecified organism Laterality: left Lung location: lower lobe of lung Qualified Code(s): J18.1 - Lobar pneumonia, unspecified organism (4) Atrial fibrillation with RVR Current Visit: Yes Status: Acute Plan as above. (5) COPD (chronic obstructive pulmonary disease) Current Visit: No Status: Chronic Plan as above Qualifiers: COPD type: unspecified COPD Qualified Code(s): J44.9 - Chronic obstructive pulmonary disease, unspecified (6) ESRD on dialysis Current Visit: No Status: Chronic Plan as above (7) Elevated troponin Current Visit: Yes Status: Acute (8) HTN (hypertension) Current Visit: No Status: Chronic Plan as above Qualifiers: Hypertension type: essential hypertension Qualified Code(s): I10 - Essential (primary) hypertension (9) DVT prophylaxis Current Visit: No Status: Acute Plan as above Subjective Interval history: Mrs. Carmona, 77yo female, discharged from [facility] 11/24/17 for pneumonia. Admitted 11/25/17 for dyspnea secondary to bonchial mucous plugging. Emergently intubated with subsequent bronchoscopy removing significant mucous with improvement in oxygenation. Hospital day 3 Patient continues to do well. Extubated 2d ago after bronchoscopy and removal of mucous plugs. Continues to be on 4L NC and comfortable. Suspect initial Hgb and K+ derangement as patient did not complete her Tuesday dialysis. She had dialysis Sat and plan for dialysis Tue. Monitoring labwork. Objective PUL Vital signs: Last Vital Signs Temp 98.5 F 11/27/17 21:11 Pulse 76 11/27/17 21:50 Resp 18 11/27/17 21:50 BP 159/78 11/27/17 21:50 Pulse Ox 93 11/27/17 21:50 General appearance: no acute distress, alert Eyes: nonicteric ENT: oropharynx moist Neck: supple Effort: normal Auscultation: bilateral: wheezes, rales (R > L) Cardiovascular: regular rate and rhythm Gastrointestinal: normoactive bowel sounds, soft, non-tender, non-distended Integumentary: normal Extremities: no cyanosis, no edema, no clubbing, pink and warm, pulses normal Musculoskeletal: no deformities normal mental status mood appropriate Results - Laboratory Findings CBC and BMP: 11/28/17 05:19 11/28/17 05:19 ABG ABG pH 7.41 pH Units (7.32-7.45) 11/26/17 04:34 ABG pCO2 50 mmHg (35-45) H 11/26/17 04:34 ABG pO2 96 mmHg (85-104) 11/26/17 04:34 ABG O2 Saturation 97 % (95-98) 11/26/17 04:34 Abnormal lab findings: Abnormal lab results RBC 2.53 M/mcL (3.82-4.97) L 11/27/17 03:48 Hgb 8.5 g/dL (11.5-15.4) L 11/27/17 03:48 Hct 25.6 % (35.3-44.9) L 11/27/17 03:48 MCV 101.2 fL (83.0-100.0) H 11/27/17 03:48 MCH 33.6 pg (28.0-33.3) H 11/27/17 03:48 Plt Count 109 K/mcL (140-400) L 11/27/17 03:48 ABG pCO2 50 mmHg (35-45) H 11/26/17 04:34 ABG HCO3 32 mEq/L (21-27) H 11/26/17 04:34 ABG Total CO2 33 mEq/L (20-26) H 11/26/17 04:34 ABG Base Excess 6 mEq/L (-2 to 3) H 11/26/17 04:34 Sodium 131 mEq/L (136-145) L 11/27/17 03:48 Chloride 91 mEq/L (98-107) L 11/27/17 03:48 Carbon Dioxide 31 mEq/L (23-29) H 11/27/17 03:48 BUN 25 mg/dL (8-23) H 11/27/17 03:48 Creatinine 3.92 mg/dL (0.60-1.20) H 11/27/17 03:48 Est GFR ( Amer) 14 (> 60) L 11/27/17 03:48 Est GFR (Non-Af Amer) 11 (> 60) L 11/27/17 03:48 POC Glucose 98 (58-89) H 11/27/17 07:28 Calculated Osmolality 276 (280-300) L 11/27/17 03:48 Troponin I 0.04 ng/mL (< 0.04) H* 02/16/18 12:36 B-Natriuretic Peptide 3339 pg/mL (Less than 100) H 11/25/17 12:36 TSH 7.969 mcIU/mL (0.340-5.600) H 11/27/17 03:48 Fluid Appearance Cloudy (Clear) A 11/25/17 15:07 Stool Occult Blood Positive (Negative) A 11/26/17 21:00 - Clinical Findings Intake & Output: Intake & Output 11/27/17 11/27/17 11/27/17 07:59 15:59 23:59 Intake Total 120 / 120 Output Total 0 / 0 0 / 0 0 / 0 Balance 0 / 0 0 / 0 120 / 120 Consult Discharge Plan - Plan Referrals: Vladimir Chaidez MD [Primary Care Provider] - <Jarod Quintana S - Last Filed: 11/28/17 21:15> Date of Encounter: 11/28/17 Objective PUL Vital signs: Last Vital Signs Temp 98.5 F 11/28/17 15:35 Pulse 86 11/28/17 17:00 Resp 16 11/28/17 17:00 BP 148/84 11/28/17 17:00 Pulse Ox 91 11/28/17 17:00 Results - Laboratory Findings CBC and BMP: 11/28/17 05:19 11/28/17 05:19 ABG ABG pH 7.41 pH Units (7.32-7.45) 11/26/17 04:34 ABG pCO2 50 mmHg (35-45) H 11/26/17 04:34 ABG pO2 96 mmHg (85-104) 11/26/17 04:34 ABG O2 Saturation 97 % (95-98) 11/26/17 04:34 Abnormal lab findings: Abnormal lab results WBC 2.8 K/mcL (4.3-11.1) L 11/28/17 05:19 RBC 3.02 M/mcL (3.82-4.97) L 11/28/17 05:19 Hgb 10.0 g/dL (11.5-15.4) L D 11/28/17 05:19 Hct 30.1 % (35.3-44.9) L 11/28/17 05:19 Plt Count 134 K/mcL (140-400) L 11/28/17 05:19 ABG pCO2 50 mmHg (35-45) H 11/26/17 04:34 ABG HCO3 32 mEq/L (21-27) H 11/26/17 04:34 ABG Total CO2 33 mEq/L (20-26) H 11/26/17 04:34 ABG Base Excess 6 mEq/L (-2 to 3) H 11/26/17 04:34 Sodium 130 mEq/L (136-145) L 11/28/17 05:19 Potassium 5.7 mEq/L (3.5-5.1) H 11/28/17 05:19 Chloride 91 mEq/L (98-107) L 11/28/17 05:19 BUN 45 mg/dL (8-23) H 11/28/17 05:19 Creatinine 5.96 mg/dL (0.60-1.20) H 11/28/17 05:19 Est GFR ( Amer) 8 (> 60) L 11/28/17 05:19 Est GFR (Non-Af Amer) 7 (> 60) L 11/28/17 05:19 Glucose 132 mg/dL (70-105) H 11/28/17 05:19 POC Glucose 98 (58-89) H 11/27/17 07:28 Troponin I 0.04 ng/mL (< 0.04) H* 11/25/17 12:36 B-Natriuretic Peptide 3339 pg/mL (Less than 100) H 11/25/17 12:36 TSH 7.969 mcIU/mL (0.340-5.600) H 11/27/17 03:48 Fluid Appearance Cloudy (Clear) A 11/25/17 15:07 Stool Occult Blood Positive (Negative) A 11/26/17 21:00 - Clinical Findings Intake & Output: Intake & Output 11/28/17 11/28/17 11/28/17 07:59 15:59 23:59 Intake Total 0 / 0 1220 / 1220 Output Total 0 / 0 2600 / 2600 Balance 0 / 0 -1380 / -1380 Weight 68.7 kg - Attending Attestation I saw and evaluated this patient and my medical decision-making was reviewed with the Resident Physician. I agree with the documented findings, disposition and treatment plan as described except to the extent set forth below. We independently had [id number] contact with the patient Patient seen and examined at bedside Labs, radiology, chart personally reviewed. Management was reviewed during multidisciplinary critical care rounds. TROUBLE DISPATCHER:Patient is conscious oriented sitting in the chair says she is feeling lot better Pulm: Patient CXR showed stable Left sided lung with good expansion with some right middle lobe atelectasis with some rostral movement of the minor fissure to continue incentive spirometry and percussior therapy to continue BIPAP at night Cards:Hemodynamically stable FEN-GI: Patient is on Regular diet Renal:UOP and Labs reviewed ID:BAL grew Serratia to continue Ceftriaxone Heme/Onc: Labs reviewed Endo: Glucose Monitored Integ/MSK: Skin Care per routine ICU Nursing Protocol to prevent ulcers. Lines: All lines examined without evidence of infection : Dispo: If stable will transfer tomorrow out of the ICU CODE: Full Code .
[2017-11-28] MEDS ORDERED: Ipratropium/Albuterol Neb 3 ML IH ONE (00:34)
[2017-11-28] MEDS ORDERED: Ipratropium/Albuterol Neb 3 ML ONE (00:35)
[2017-11-28] MEDS: 0.9 % Sodium Chloride 1,000 ML IVC SCH (03:38)
[2017-11-28] MEDS: Levalbuterol Neb 1.25 MG/3 ML IH SCH ×4 (04:15→22:04)
[2017-11-28] MEDS: Acetylcysteine 10% 2 ML INHSOL IH SCH ×4 (04:16→22:04)
[2017-11-28 05:41] LABS: Hematocrit 30.1 % (35.3-44.9); Mean Corpuscular HGB Conc 33.2 g/dL (31.6-35.5); Mean Corpuscular Hemoglobin 33.1 pg (28.0-33.3); Mean Corpuscular Volume 99.7 fL (83.0-100.0); Mean Platelet Volume 10.6 fL (9.4-12.4); Platelet Count 134 K/mcL (140-400); Red Blood Count 3.02 M/mcL (3.82-4.97); Red Cell Distribution Width 14.1 % (11.5-14.5)
[2017-11-28 05:44] LABS: Calcium 10.3 mg/dL (8.6-10.3); Potassium 5.7 mEq/L (3.5-5.1)
[2017-11-28] MEDS: Levothyroxine 25 MCG TABLET PO SCH (05:47)
--- NOTE | 2017-11-28 08:05 | Nephrology Progress Note ---
Date of Encounter: 11/28/17 Time of Encounter: 07:45 - Assessment and Plan (1) ESRD on dialysis Current Visit: No Status: Chronic Acute on chronic respiratory failure, PNA-serratia, on Ceftriaxone. ESRD- HD today, keeping MWF schedule. Orders given. Subjective Interval history: Extubated. O2 NC. S/P bronch for mucous plugging. Objective - Vital Signs Vital signs: Vital Signs Temp Pulse Resp BP Pulse Ox 11/28/17 05:05 82 21 171/87 979 11/28/17 05:01 97.8 F 11/28/17 04:16 21 172/84 97 11/28/17 03:49 79 18 162/79 96 11/28/17 03:00 73 18 170/86 96 11/28/17 02:00 77 18 156/78 90 11/28/17 00:40 76 18 166/77 89 11/28/17 00:38 24 89 11/28/17 00:27 97.8 F 11/27/17 23:00 78 18 163/79 94 11/27/17 21:50 76 18 159/78 93 11/27/17 21:49 20 93 11/27/17 21:11 98.5 F 11/27/17 20:00 77 18 159/78 93 11/27/17 19:00 76 18 168/77 93 11/27/17 18:00 73 18 164/83 93 11/27/17 17:00 73 18 170/71 92 11/27/17 16:16 24 95 11/27/17 16:00 98.3 F 73 18 170/80 95 11/27/17 15:00 71 20 162/85 92 11/27/17 14:00 78 20 160/80 91 11/27/17 13:00 75 19 156/76 94 11/27/17 12:00 97.7 F 77 18 153/80 91 11/27/17 11:08 77 11/27/17 11:00 77 17 154/76 92 11/27/17 10:00 76 20 147/71 89 11/27/17 09:29 20 92 11/27/17 09:00 123 16 145/96 90 11/27/17 08:09 98.5 F Intake and Output 11/27/17 11/28/17 11/28/17 23:59 07:59 15:59 Intake Total 120 / 120 0 / 0 Output Total 0 / 0 0 / 0 Balance 120 / 120 0 / 0 Intake: Oral 120 / 120 0 / 0 Output: Urine 0 / 0 0 / 0 Other: Meal Lunch Percent of Meal Consumed 80% Stool Size Large Stool Consistency soft Stool Characteristics Normal for Patient Stool Color Brown # Bowel Movements 1 Weight 68.7 kg Patient Weight 11/28/17 23:59 Weight 68.7 kg - General Appearance General appearance: Present: well-developed, well-nourished, appears started age EENT: Present: mucous membranes moist Neck: Present: no JVD Additional Comments: diminished, scattered rhonchi Cardiology: Present: edema, regular rate, regular rhythm Additional Comments: trace-mild ankle Gastrointestinal: Present: normoactive bowel sounds, no tenderness Integumentary: Present: warm and dry Neurologic: Present: alert and oriented x3 - Lab 11/28/17 05:19 11/28/17 05:19 Most recent lab results ABG pH 7.41 pH Units (7.32-7.45) 11/26/17 04:34 ABG pCO2 50 mmHg (35-45) H 11/26/17 04:34 ABG pO2 96 mmHg (85-104) 11/26/17 04:34 ABG HCO3 32 mEq/L (21-27) H 11/26/17 04:34 ABG O2 Saturation 97 % (95-98) 11/26/17 04:34 Calcium 10.3 mg/dL (8.6-10.3) 11/28/17 05:19 Magnesium 2.0 mg/dL (1.6-2.6) 11/27/17 03:48 Consult Discharge Plan - Plan Referrals: Vladimir Chaidez MD [Primary Care Provider] -
[2017-11-28] MEDS ORDERED: 0.9 % Sodium Chloride 250 ML IVC PRN (08:11)
[2017-11-28] MEDS ORDERED: 0.9 % Sodium Chloride 1,000 ML PRIME SCH (08:15)
[2017-11-28] MEDS: Pregabalin 50 MG CAPSULE PO SCH ×2 (10:28→20:41)
[2017-11-28] MEDS: MethylPREDNISolone 40 MG/ML VIAL IVP SCH ×2 (10:28→17:37)
[2017-11-28] MEDS: amLODIPine 5 MG TABLET PO SCH (10:29)
[2017-11-28] MEDS: Aspirin 81 MG TAB.CHEW PO SCH (10:30)
[2017-11-28] MEDS: Metoprolol XL (24 HR) Succ 50 MG TAB.ER.24H PO SCH ×2 (10:30→20:41)
[2017-11-28] MEDS: Budesonide/Formoterol 80/4.5 MDI IH SCH ×2 (10:46→22:04)
[2017-11-28] MEDS: *HR* Heparin 5,000 UNIT/ML VIAL SQ SCH ×2 (13:00→17:39)
[2017-11-28] MEDS: Acetaminophen 325 MG TABLET PO PRN (13:00)
[2017-11-28] MEDS: cefTRIAXone 2,000 MG in Water for inj. (sterile) 20 ML 20 ML IVP SCH (17:37)
[2017-11-29] MEDS: MethylPREDNISolone 40 MG/ML VIAL IVP SCH ×3 (00:03→17:45)
[2017-11-29 03:27] LABS: Hematocrit 26.3 % (35.3-44.9); Hemoglobin 8.7 g/dL (11.5-15.4); Immature Granulocytes % 0.6 % (0-4); Lymphocytes # 0.2 K/mcL (0.6-4.6); Lymphocytes % 5.2 %; Mean Corpuscular HGB Conc 33.1 g/dL (31.6-35.5); Mean Corpuscular Hemoglobin 33.5 pg (28.0-33.3); Mean Corpuscular Volume 101.2 fL (83.0-100.0); Mean Platelet Volume 10.1 fL (9.4-12.4); Monocytes # 0.1 K/mcL (0.0-1.3); Monocytes % 3.5 %; Neutrophils # 2.8 K/mcL (1.6-8.9); Nucleated Red Blood Cells 0.6 /100 WBC (0); Platelet Count 118 K/mcL (140-400); Segmented Neutrophils % 90.7 %
[2017-11-29] MEDS: Acetylcysteine 10% 2 ML INHSOL IH SCH ×4 (03:46→22:12)
[2017-11-29] MEDS: Levalbuterol Neb 1.25 MG/3 ML IH SCH ×4 (03:46→22:11)
[2017-11-29 04:06] LABS: Platelet Estimate Decreased (Normal)
[2017-11-29 04:18] LABS: Calcium 9.7 mg/dL (8.6-10.3); Potassium 4.7 mEq/L (3.5-5.1)
[2017-11-29] MEDS: *HR* Heparin 5,000 UNIT/ML VIAL SQ SCH ×2 (06:15→17:45)
[2017-11-29] MEDS: Levothyroxine 25 MCG TABLET PO SCH (06:15)
--- NOTE | 2017-11-29 08:09 | Nephrology Progress Note ---
Date of Encounter: 11/29/17 Time of Encounter: 08:07 - Assessment and Plan (1) End-stage renal disease Current Visit: Yes Status: Acute Patient has end-stage renal disease. She continues to be supported with dialysis every Tuesday. Last dialysis was yesterday. Hemoglobin is 8.7. She will be maintained on Aranesp. From a pulmonary standpoint she is improving. She needs to continue with aggressive pulmonary toilet. (2) Acute exacerbation of chronic obstructive pulmonary disease (COPD) Current Visit: No Status: Acute (3) Anemia in chronic kidney disease (CKD) Current Visit: No Status: Acute Qualifiers: Chronic kidney disease stage: on chronic dialysis Qualified Code(s): N18.6 - End stage renal disease; D63.1 - Anemia in chronic kidney disease; D63.1 - Anemia in chronic kidney disease; Z99.2 - Dependence on renal dialysis; Z99.2 - Dependence on renal dialysis; Z99.2 - Dependence on renal dialysis; Z99.2 - Dependence on renal dialysis (4) Mucus plugging of bronchi Current Visit: Yes Status: Acute Subjective Interval history: Patient reports she is feeling much better. Her breathing is improved. She is sitting up in a chair eating breakfast. She appears to be in no acute distress. She did undergo her dialysis yesterday. Objective - Vital Signs Vital signs: Vital Signs Temp Pulse Resp BP Pulse Ox 11/29/17 07:51 70 18 169/77 95 11/29/17 06:00 75 18 170/89 95 11/29/17 05:00 77 19 138/77 95 11/29/17 04:00 77 18 147/78 97 11/29/17 03:46 19 151/72 95 11/29/17 03:26 98.0 F 11/29/17 03:00 69 18 151/72 94 11/29/17 02:00 70 17 158/75 95 11/29/17 01:17 25 162/75 93 11/29/17 01:00 74 24 162/75 93 11/29/17 00:10 80 11/29/17 00:00 80 22 160/77 93 11/28/17 23:40 97.9 F 11/28/17 23:39 20 158/75 93 11/28/17 23:00 86 24 158/75 94 11/28/17 22:04 18 157/78 92 11/28/17 22:00 84 16 151/78 96 11/28/17 21:00 82 18 160/74 92 11/28/17 20:00 80 18 158/77 99 11/28/17 19:54 82 11/28/17 19:50 97.7 F 11/28/17 19:00 82 18 159/80 96 11/28/17 18:00 82 16 158/76 91 11/28/17 17:00 86 16 148/84 91 11/28/17 15:35 98.5 F 11/28/17 15:19 16 91 11/28/17 15:00 89 16 142/68 96 11/28/17 13:00 79 16 139/79 96 11/28/17 12:55 98.4 F 20 159/77 11/28/17 12:30 150/70 11/28/17 12:26 97.1 F L 11/28/17 12:15 165/81 11/28/17 12:00 157/79 11/28/17 11:45 165/78 11/28/17 11:30 165/77 11/28/17 11:26 75 11/28/17 11:25 78 16 158/88 96 11/28/17 11:15 170/82 11/28/17 11:00 173/81 11/28/17 10:46 16 96 11/28/17 10:45 165/83 11/28/17 10:30 169/91 11/28/17 10:15 183/96 11/28/17 10:00 78 20 155/85 92 11/28/17 09:45 162/83 11/28/17 09:30 98.5 F 20 158/72 11/28/17 09:00 75 20 167/79 92 Intake and Output 11/28/17 11/29/17 11/29/17 23:59 07:59 15:59 Intake Total 640 / 640 Output Total 0 / 0 0 / 0 Balance 640 / 640 0 / 0 Intake: Oral 640 / 640 Output: Urine 0 / 0 0 / 0 Other: Meal Dinner Percent of Meal Consumed 95% Weight 68.4 kg Patient Weight 11/29/17 23:59 Weight 68.4 kg - General Appearance Exam: Patient is alert and oriented. She is in acute distress. Lungs lungs demonstrate bilateral rhonchi. Heart regular rate and rhythm. Abdomen is benign. There is some lower extremity swelling. There is a functioning AV fistula left upper extremity. - Lab 11/29/17 03:17 11/29/17 03:17 Most recent lab results ABG pH 7.41 pH Units (7.32-7.45) 11/26/17 04:34 ABG pCO2 50 mmHg (35-45) H 11/26/17 04:34 ABG pO2 96 mmHg (85-104) 11/26/17 04:34 ABG HCO3 32 mEq/L (21-27) H 11/26/17 04:34 ABG O2 Saturation 97 % (95-98) 11/26/17 04:34 Calcium 9.7 mg/dL (8.6-10.3) 11/29/17 03:17 Magnesium 2.0 mg/dL (1.6-2.6) 11/27/17 03:48 Consult Discharge Plan - Plan Referrals: Vladimir Chaidez MD [Primary Care Provider] -
[2017-11-29] MEDS ORDERED: Darbepoetin 100 MCG/0.5 ML SYRINGE SQ SCH ×2 (08:15→09:24)
--- NOTE | 2017-11-29 08:55 | Pulmonology Progress Note ---
<Eron Giang - Last Filed: 11/29/17 14:18> Date of Encounter: 11/29/17 Time of Encounter: 09:00 Assessment and Plan (1) Acute and chronic respiratory failure with hypoxia Current Visit: No Status: Acute Extubated 11/26; continue chest percussive therapy, mucinex, incentive spirometry encouraged. Tolerating high flow nasal cannula well. (2) Mucus plugging of bronchi Current Visit: Yes Status: Acute Per bronchoscopy report: With left flank abnormalities and can with notable mucous plaques and bronchiectatic changes in the left lower lobe with mucous plaques was successfully cleaned without immediate complications. Patient tolerated procedure very well. The total duration of the procedure was 8 minutes. Impression: Recurrent mucous plugs was successfully cleaned Recommendations: Patient will be extubated (extubated 11/26) with pulmonary toilet. (3) Pneumonia Current Visit: No Status: Acute Culture positive growth Serratia; multiple sensitivities, was on cefdinir in prior admission, continuing Rocephin. Qualifiers: Pneumonia type: due to unspecified organism Laterality: left Lung location: lower lobe of lung Qualified Code(s): J18.1 - Lobar pneumonia, unspecified organism (4) ESRD on dialysis Current Visit: No Status: Chronic Nephrology following. Pt is MWF dialysis patient, creatinine baseline in 4.0s (5) COPD (chronic obstructive pulmonary disease) Current Visit: No Status: Chronic Chronic condition, bronchodilators/symbicort Qualifiers: COPD type: unspecified COPD Qualified Code(s): J44.9 - Chronic obstructive pulmonary disease, unspecified (6) HTN (hypertension) Current Visit: No Status: Chronic Occasionally hypertensive, has home meds: Cozaar, Toprol, Norvasc. Monitoring BP , heartrate. Qualifiers: Hypertension type: essential hypertension Qualified Code(s): I10 - Essential (primary) hypertension (7) DVT prophylaxis Current Visit: No Status: Acute On intermittent pneumatic compression. Subjective Principal diagnosis: Mucus Plug, Resp Failure Interval history: Conversant, sitting comfortably in chair. Tolerating high flow nasal cannula and percussive therapy. Ready for tele transfer. Objective PUL Vital signs: Last Vital Signs Temp 97.8 F 11/29/17 08:09 Pulse 70 11/29/17 07:51 Resp 18 11/29/17 07:51 BP 169/77 11/29/17 07:51 Pulse Ox 95 11/29/17 07:51 General appearance: no acute distress Eyes: nonicteric Cardiovascular: regular rate and rhythm Gastrointestinal: normoactive bowel sounds, soft, non-distended Integumentary: normal Extremities: no cyanosis Musculoskeletal: no deformities normal mental status mood appropriate Results - Laboratory Findings CBC and BMP: 11/29/17 03:17 11/29/17 03:17 ABG ABG pH 7.41 pH Units (7.32-7.45) 11/26/17 04:34 ABG pCO2 50 mmHg (35-45) H 11/26/17 04:34 ABG pO2 96 mmHg (85-104) 11/26/17 04:34 ABG O2 Saturation 97 % (95-98) 11/26/17 04:34 Abnormal lab findings: Abnormal lab results WBC 3.1 K/mcL (4.3-11.1) L 11/29/17 03:17 RBC 2.60 M/mcL (3.82-4.97) L 11/29/17 03:17 Hgb 8.7 g/dL (11.5-15.4) L 11/29/17 03:17 Hct 26.3 % (35.3-44.9) L 11/29/17 03:17 MCV 101.2 fL (83.0-100.0) H 11/29/17 03:17 MCH 33.5 pg (28.0-33.3) H 11/29/17 03:17 Plt Count 118 K/mcL (140-400) L 11/29/17 03:17 Lymphocytes # 0.2 K/mcL (0.6-4.6) L 11/29/17 03:17 Nucleated RBCs/100 WBC 0.6 /100 WBC (0) H 11/29/17 03:17 Platelet Estimate Decreased (Normal) L 11/29/17 03:17 ABG pCO2 50 mmHg (35-45) H 11/26/17 04:34 ABG HCO3 32 mEq/L (21-27) H 11/26/17 04:34 ABG Total CO2 33 mEq/L (20-26) H 11/26/17 04:34 ABG Base Excess 6 mEq/L (-2 to 3) H 11/26/17 04:34 Chloride 97 mEq/L (98-107) L 11/29/17 03:17 Carbon Dioxide 31 mEq/L (23-29) H 11/29/17 03:17 BUN 40 mg/dL (8-23) H 11/29/17 03:17 Creatinine 4.00 mg/dL (0.60-1.20) H 11/29/17 03:17 Est GFR ( Amer) 13 (> 60) L 11/29/17 03:17 Est GFR (Non-Af Amer) 11 (> 60) L 11/29/17 03:17 Glucose 154 mg/dL (70-105) H 11/29/17 03:17 POC Glucose 98 (58-89) H 11/27/17 07:28 Troponin I 0.04 ng/mL (< 0.04) H* 11/25/17 12:36 B-Natriuretic Peptide 3339 pg/mL (Less than 100) H 11/25/17 12:36 TSH 7.969 mcIU/mL (0.340-5.600) H 11/27/17 03:48 Fluid Appearance Cloudy (Clear) A 11/25/17 15:07 Stool Occult Blood Positive (Negative) A 11/26/17 21:00 - Clinical Findings Intake & Output: Intake & Output 11/28/17 11/29/17 11/29/17 23:59 07:59 15:59 Intake Total 640 / 640 240 / 240 Output Total 0 / 0 0 / 0 Balance 640 / 640 0 / 0 240 / 240 Weight 68.4 kg Consult Discharge Plan - Plan Referrals: Vladimir Chaidez MD [Primary Care Provider] - <Jarod Quintana - Last Filed: 11/29/17 23:05> Date of Encounter: 11/29/17 Objective PUL Vital signs: Last Vital Signs Temp 98.3 F 11/29/17 15:00 Pulse 79 11/29/17 15:00 Resp 16 11/29/17 15:43 BP 176/76 11/29/17 15:00 Pulse Ox 92 11/29/17 15:43 Results - Laboratory Findings CBC and BMP: 11/29/17 03:17 11/29/17 03:17 ABG ABG pH 7.41 pH Units (7.32-7.45) 11/26/17 04:34 ABG pCO2 50 mmHg (35-45) H 11/26/17 04:34 ABG pO2 96 mmHg (85-104) 11/26/17 04:34 ABG O2 Saturation 97 % (95-98) 11/26/17 04:34 Abnormal lab findings: Abnormal lab results WBC 3.1 K/mcL (4.3-11.1) L 11/29/17 03:17 RBC 2.60 M/mcL (3.82-4.97) L 11/29/17 03:17 Hgb 8.7 g/dL (11.5-15.4) L 11/29/17 03:17 Hct 26.3 % (35.3-44.9) L 11/29/17 03:17 MCV 101.2 fL (83.0-100.0) H 11/29/17 03:17 MCH 33.5 pg (28.0-33.3) H 11/29/17 03:17 Plt Count 118 K/mcL (140-400) L 11/29/17 03:17 Lymphocytes # 0.2 K/mcL (0.6-4.6) L 11/29/17 03:17 Nucleated RBCs/100 WBC 0.6 /100 WBC (0) H 11/29/17 03:17 Platelet Estimate Decreased (Normal) L 11/29/17 03:17 ABG pCO2 50 mmHg (35-45) H 11/26/17 04:34 ABG HCO3 32 mEq/L (21-27) H 11/26/17 04:34 ABG Total CO2 33 mEq/L (20-26) H 11/26/17 04:34 ABG Base Excess 6 mEq/L (-2 to 3) H 11/26/17 04:34 Chloride 97 mEq/L (98-107) L 11/29/17 03:17 Carbon Dioxide 31 mEq/L (23-29) H 11/29/17 03:17 BUN 40 mg/dL (8-23) H 11/29/17 03:17 Creatinine 4.00 mg/dL (0.60-1.20) H 11/29/17 03:17 Est GFR ( Amer) 13 (> 60) L 11/29/17 03:17 Est GFR (Non-Af Amer) 11 (> 60) L 11/29/17 03:17 Glucose 154 mg/dL (70-105) H 11/29/17 03:17 POC Glucose 98 (58-89) H 11/27/17 07:28 Troponin I 0.04 ng/mL (< 0.04) H* 11/25/17 12:36 B-Natriuretic Peptide 3339 pg/mL (Less than 100) H 11/25/17 12:36 TSH 7.969 mcIU/mL (0.340-5.600) H 11/27/17 03:48 Fluid Appearance Cloudy (Clear) A 11/25/17 15:07 Stool Occult Blood Positive (Negative) A 11/26/17 21:00 - Clinical Findings Intake & Output: Intake & Output 11/29/17 11/29/17 11/29/17 07:59 15:59 23:59 Intake Total 260 / 260 Output Total 0 / 0 Balance 0 / 0 260 / 260 Weight 68.4 kg - Attending Attestation I saw and evaluated this patient and my medical decision-making was reviewed with the Resident Physician. I agree with the documented findings, disposition and treatment plan as described except to the extent set forth below. We independently had [id number] contact with the patient Patient seen and examined at bedside Labs, radiology, chart personally reviewed. Management was reviewed during multidisciplinary critical care rounds. BRAKER PASSENGER TRAIN:Patient is conscious oriented sitting in the chair says she is doing better able to cough up secretions Pulm: CXR showed stable Left sided lung with good expansion with some right middle lobe atelectasis with some rostral movement of the minor fissure to continue incentive spirometry and percussor therapy to continue BIPAP at night Cards:Hemodynamically stable FEN-GI: Patient is on Regular diet Renal:UOP and Labs reviewed ID:BAL grew Serratia to continue Ceftriaxone Heme/Onc: Labs reviewed Endo: Glucose Monitored Integ/MSK: Skin Care per routine ICU Nursing Protocol to prevent ulcers. Lines: All lines examined without evidence of infection : Dispo: Can be transferred to Tele CODE: Full Code .
[2017-11-29] MEDS: Metoprolol XL (24 HR) Succ 50 MG TAB.ER.24H PO SCH ×2 (09:06→19:34)
[2017-11-29] MEDS: Pregabalin 50 MG CAPSULE PO SCH ×2 (09:06→19:33)
[2017-11-29] MEDS: amLODIPine 5 MG TABLET PO SCH (09:06)
[2017-11-29] MEDS: Aspirin 81 MG TAB.CHEW PO SCH (09:06)
[2017-11-29] MEDS ORDERED: 0.9 % Sodium Chloride 250 ML IVC PRN (09:24)
[2017-11-29] MEDS ORDERED: Acetaminophen 325 MG TABLET PO PRN (09:24)
[2017-11-29] MEDS ORDERED: 0.9 % Sodium Chloride 1,000 ML PRIME SCH (09:24)
[2017-11-29] MEDS: Budesonide/Formoterol 80/4.5 MDI IH SCH ×2 (09:42→22:12)
[2017-11-29] MEDS: cefTRIAXone 2,000 MG in Water for inj. (sterile) 20 ML 20 ML IVP SCH (17:44)
[2017-11-30] MEDS: MethylPREDNISolone 40 MG/ML VIAL IVP SCH ×3 (00:41→17:10)
--- NOTE | 2017-11-30 02:04 | Electrocardiograph Report ---
[place] [id number] Test Date: 2017-11-25 Pat Name: Monisha Carmona Department: 104 Room: 2A12 Gender: F Relationship Consultant: WILLIAM : 1940 Requested By: Cecil Carlin Order Number: [id number] Reading MD: Karly Han Measurements Intervals [place] Rate: 89 P: 84 ID: [id number] QRS: 26 QRSD: 88 T: 91 QT: 374 QTc: 421 Interpretive Statements SINUS RHYTHM MODERATE ST DEPRESSION Electronically Signed On 11-30-2017 2:03:20 EST by Karly Han
--- NOTE | 2017-11-30 02:07 | Electrocardiograph Report ---
[place] [id number] Test Date: 2017-11-25 Pat Name: Monisha Carmona Department: [id number] Room: 2A12 Gender: F [employer]working [employer]: CCCDF : 1940 Requested By: Lita Ty Order Number: [id number] Reading MD: Karly Han Measurements Intervals [place] Rate: 119 P: DC: 0 QRS: -1 QRSD: 81 T: 80 QT: 343 QTc: 414 Interpretive Statements ATRIAL TACHYCARDIA WITH RAPID VENTRICULAR RESPONSE MODERATE ST DEPRESSION Electronically Signed On 11-30-2017 2:05:36 EST by Karly Han
[2017-11-30] MEDS: Levalbuterol Neb 1.25 MG/3 ML IH SCH ×4 (04:13→22:41)
[2017-11-30] MEDS: Acetylcysteine 10% 2 ML INHSOL IH SCH ×4 (04:13→22:41)
[2017-11-30] MEDS: Levothyroxine 25 MCG TABLET PO SCH (05:30)
[2017-11-30] MEDS: *HR* Heparin 5,000 UNIT/ML VIAL SQ SCH (05:30)
[2017-11-30] MEDS ORDERED: 0.9 % Sodium Chloride 1,000 ML ONE (07:37)
[2017-11-30] MEDS: Metoprolol XL (24 HR) Succ 50 MG TAB.ER.24H PO SCH ×2 (08:25→20:47)
[2017-11-30] MEDS: Aspirin 81 MG TAB.CHEW PO SCH (08:25)
[2017-11-30] MEDS: amLODIPine 5 MG TABLET PO SCH (08:25)
[2017-11-30] MEDS: Pregabalin 50 MG CAPSULE PO SCH ×2 (08:25→20:47)
[2017-11-30] MEDS ORDERED: 0.9 % Sodium Chloride 250 ML IVC PRN (08:36)
[2017-11-30] MEDS ORDERED: 0.9 % Sodium Chloride 1,000 ML PRIME SCH (08:45)
[2017-11-30 08:46] LABS: Hematocrit 30.1 % (35.3-44.9); Hemoglobin 9.9 g/dL (11.5-15.4); Mean Corpuscular HGB Conc 32.9 g/dL (31.6-35.5); Mean Corpuscular Hemoglobin 33.4 pg (28.0-33.3); Mean Corpuscular Volume 101.7 fL (83.0-100.0); Mean Platelet Volume 10.1 fL (9.4-12.4); Platelet Count 185 K/mcL (140-400); Red Blood Count 2.96 M/mcL (3.82-4.97); Red Cell Distribution Width 14.1 % (11.5-14.5)
--- NOTE | 2017-11-30 08:47 | Nephrology Progress Note ---
Date of Encounter: 11/30/17 Time of Encounter: 08:30 - Assessment and Plan (1) ESRD on dialysis Current Visit: No Status: Chronic Acute on chronic respiratory failure, S/P bronch-mycous plugging. ESRD- HD today, keeping MWF schedule. Orders given. Subjective Principal diagnosis: Mucus Plug, Resp Failure Interval history: Sitting up in chair. States feeling better. Continues to have moist productive cough. Objective - Vital Signs Vital signs: Vital Signs Temp Pulse Resp BP Pulse Ox 11/30/17 06:37 97.6 F 65 17 169/82 95 11/30/17 04:47 97.4 F L 59 18 165/80 98 11/30/17 04:13 20 97 11/29/17 23:40 97.9 F 71 18 168/70 97 11/29/17 22:12 18 91 11/29/17 19:30 98.6 F 74 24 188/85 91 11/29/17 15:43 16 92 11/29/17 15:00 98.3 F 79 22 176/76 89 11/29/17 11:39 97.8 F 11/29/17 11:30 78 173/78 11/29/17 11:00 75 11/29/17 10:24 179/79 11/29/17 09:46 22 98 Intake and Output 11/29/17 11/30/17 11/30/17 23:59 07:59 15:59 Intake Total 50 / 50 120 / 120 Output Total 0 / 0 Balance 50 / 50 120 / 120 Intake: Oral 50 / 50 120 / 120 Output: Urine 0 / 0 Other: Meal Breakfast Percent of Meal Consumed 100% Stool Size Large Stool Consistency formed # Bowel Movements 1 Weight 66.95 kg - General Appearance General appearance: Present: well-developed, well-nourished, appears started age EENT: Present: mucous membranes moist Neck: Present: no JVD Respiratory: Present: wheezing Cardiology: Present: edema, regular rate, regular rhythm Additional Comments: mild ankle Gastrointestinal: Present: normoactive bowel sounds, no tenderness Integumentary: Present: warm and dry Neurologic: Present: alert and oriented x3 - Lab 11/29/17 03:17 11/29/17 03:17 Most recent lab results ABG pH 7.41 pH Units (7.32-7.45) 11/26/17 04:34 ABG pCO2 50 mmHg (35-45) H 11/26/17 04:34 ABG pO2 96 mmHg (85-104) 11/26/17 04:34 ABG HCO3 32 mEq/L (21-27) H 11/26/17 04:34 ABG O2 Saturation 97 % (95-98) 11/26/17 04:34 Calcium 9.7 mg/dL (8.6-10.3) 11/29/17 03:17 Magnesium 2.0 mg/dL (1.6-2.6) 11/27/17 03:48 Consult Discharge Plan - Plan Referrals: Vladimir Chaidez MD [Primary Care Provider] -
[2017-11-30 09:04] LABS: Calcium 10.1 mg/dL (8.6-10.3); Potassium 5.7 mEq/L (3.5-5.1)
[2017-11-30] MEDS ORDERED: Ondansetron 4 MG/2 ML VIAL IVP PRN (10:02)
[2017-11-30] MEDS: Budesonide/Formoterol 80/4.5 MDI IH SCH ×2 (10:53→22:41)
--- NOTE | 2017-11-30 12:58 | Internal Med Progress Note ---
Date of Encounter: 11/30/17 Time of Encounter: 08:45 - Assessment and plan (1) Acute and chronic respiratory failure with hypoxia Current Visit: Yes Status: Acute Assessment and plan: Due to underlying pneumonia. Continue O2 supplementation. Wean FiO2 as tolerated. Remains at high risk for complications given her high O2 requirements. (2) Pneumonia Current Visit: Yes Status: Acute Assessment and plan: BAL culture growing Serratia. Sensitive to ceftriaxone. We will consult infectious disease for antibiotic recommendations as patient may require intravenous therapy Qualifiers: Pneumonia type: due to unspecified organism Laterality: left Lung location: lower lobe of lung Qualified Code(s): J18.1 - Lobar pneumonia, unspecified organism (3) COPD (chronic obstructive pulmonary disease) Current Visit: Yes Status: Chronic Assessment and plan: Continue bronchodilators and inhaled corticosteroids. Qualifiers: COPD type: unspecified COPD Qualified Code(s): J44.9 - Chronic obstructive pulmonary disease, unspecified (4) ESRD on dialysis Current Visit: Yes Status: Chronic Assessment and plan: Nephrology following for dialysis management. (5) HTN (hypertension) Current Visit: Yes Status: Chronic Assessment and plan: Blood pressure has been elevated since yesterday. Continue losartan, amlodipine and metoprolol. We will reassess postdialysis today. If persistently elevated, will add hydralazine. Qualifiers: Hypertension type: essential hypertension Qualified Code(s): I10 - Essential (primary) hypertension (6) Mucus plugging of bronchi Current Visit: Yes Status: Acute Assessment and plan: Status post-bronchoscopy. Does appear to have continued residual mucus plugging with right middle lobe atelectasis for chest x-ray done on 11/28/17. Continue chest percussion and pulmonary toilet. Continue IS. (7) DVT prophylaxis Current Visit: Yes Status: Acute Assessment and plan: Subcutaneous heparin - Subjective Interval history: Patient is sitting up in chair. Remains on 8 L O2 supplementation. Denies any chest pain at this time. Shortness of breath is improving. No nausea or vomiting. Continues to have cough. - Constitutional Vitals: Temp Pulse Resp BP Pulse Ox 97.6 F 65 17 169/82 95 11/30/17 06:37 11/30/17 06:37 11/30/17 06:37 11/30/17 06:37 11/30/17 06:37 General appearance: Present: cooperative, A&O X 3, answers questions appropriately - Neck Neck exam general surgery: Present: supple, trachea midline. Absent: lymphadenopathy - Respiratory Respiratory exam: Present: prolonged expiratory phase. Absent: accessory muscle use, rales, rhonchi, wheezes Additional comments: Coarse breath sounds bilaterally - Cardiovascular Cardiovascular exam: Present: RRR, +S1, +S2. Absent: diastolic murmur, gallop, rubs, systolic murmur - GI/Abdominal GI/Abdominal exam: Present: normal bowel sounds, soft, no peritoneal signs. Absent: distended, tenderness - Extremities Exam Extremities exam: Present: warm, radial pulses palpable and symmetrical. Absent : calf tenderness, cyanotic, pedal edema - Neurological Exam Neurological exam: Present: alert, CN II-XII intact, oriented X3, no focal deficits. Absent: facial droop, speech deficit Internal Medicine: Result - Labs CBC & Chem 7: 11/30/17 08:30 11/30/17 08:30 Labs: Short CBC 11/30/17 Range/Units 08:30 WBC 4.1 L (4.3-11.1) K/mcL Hgb 9.9 L (11.5-15.4) g/dL Hct 30.1 L (35.3-44.9) % Plt Count 185 D (140-400) K/mcL BMP 11/30/17 08:30 Sodium 136 Potassium 5.7 H Chloride 94 L Carbon Dioxide 30 H BUN 74 H Creatinine 5.74 H Glucose 173 H Calcium 10.1 - ABG Interpretation ABG results: ABG ABG pH 7.41 pH Units (7.32-7.45) 11/26/17 04:34 ABG pCO2 50 mmHg (35-45) H 11/26/17 04:34 ABG pO2 96 mmHg (85-104) 11/26/17 04:34 ABG O2 Saturation 97 % (95-98) 11/26/17 04:34 Consult Discharge Plan - Plan Referrals: Vladimir Chaidez MD [Primary Care Provider] -
--- NOTE | 2017-11-30 15:49 | Infectious Disease Consult ---
Date of Encounter: 11/30/17 Time of Encounter: 15:47 Assessment and Plan (1) Pneumonia Status: Acute Assessment and plan: Causative organism: Serratia marcescens. Failed outpatient oral antibiotics. Previously treated with 2 days of Zosyn and was discharged on PO Omnicef. CXR completed 11/25/17 showed complete opacification of the left hemithorax concerning for a large pleural effusion vs. atelectasis, as well as a filling defect in the left mainstem bronchus. Pulmonology consulted and performed bronch that showed large amount of mucopurulent secretions and mucous plugging. BAL grew S. marcescens, resistant to cefazolin. Not sure if this is a resistance issue (Serratia is known to develop AmpC resistance) or a source control issue as the patient had a bronch during her previous hospitalization that also showed extensive mucous plugging and mucopurulent secretions. Discontinue Rocephin. Start Ciprofloxacin 400mg IV daily, give after HD on HD days. Will need to monitor closely as the patient does have a history of PAF with RVR during this hospitalization. Duration of treatment depends on the clinical picture. Dose adjusted for HD patient. Qualifiers: Pneumonia type: due to unspecified organism Laterality: left Lung location: lower lobe of lung Qualified Code(s): J18.1 - Lobar pneumonia, unspecified organism (2) Acute and chronic respiratory failure with hypoxia Status: Acute Assessment and plan: Secondary to PNA and mucous plugging. Required short-term intubation after attempted bronchoscopy. Extubated 11/26/17. Improved. Continues to require full-time O2 support. Pulmonology consulted and following. (3) Mucus plugging of bronchi Status: Acute Assessment and plan: Secondary to PNA and COPD. Status post bronchoscopy with clearing of secretions. Antibiotic recommendations as above. Further management per the primary and pulmonology teams. (4) Collapse of left lung Status: Acute Assessment and plan: Secondary to mucous plugs. Resolved. Repeat CXR showed improved aeration of the left lung. (5) Elevated troponin Status: Acute Assessment and plan: Likely demand ischemia. Further workup and management per the primary team. (6) ESRD on dialysis Status: Chronic Assessment and plan: Nephrology consulted and following. (7) COPD (chronic obstructive pulmonary disease) Status: Chronic Qualifiers: COPD type: unspecified COPD Qualified Code(s): J44.9 - Chronic obstructive pulmonary disease, unspecified (8) HTN (hypertension) Status: Chronic Qualifiers: Hypertension type: essential hypertension Qualified Code(s): I10 - Essential (primary) hypertension (9) PAF (paroxysmal atrial fibrillation) Status: Acute Assessment and plan: Had one episode of RVR, but converted to NSR after 1 dose of IV Lopressor. Cardiology consulted and recommendations noted. Further management per the primary team. Infectious Disease HPI - Data of Consult Patient: new to practice Consult date: 11/30/17 Requesting Physician: Zeenat Mckeon MD Primary Care Provider: Vladimir Chaidez MD - Consult Narrative Reason for consult: Serratia on BAL History of present illness: Ms. Carmona is a 77 year old female past medical history of end-stage renal disease on hemodialysis, COPD, hyperlipidemia, hypertension, and recent diagnosis of pneumonia. The patient was admitted to the [facility] for mucous plugging of the left lung and pneumonia. We are consulted November 30 for antibiotic recommendations for recurrent pneumonia. Briefly, the patient is a 77 year old female with past medical history as stated above. The patient was previously admitted to the hospital back on November 22 for pneumonia or she presented to the emergency department with shortness of breath and cough. During hospitalization, the patient's CAT scan showed mucoid impaction of the left mainstem bronchus with postobstructive atelectasis/collapse of the left lung. Pulmonology was consulted and performed a bronchoscopy and BAL cultures grew Serratia marcescens. She was treated with 2 days of Zosyn inpatient and was discharged home to complete a seven-day course with oral Ceftin ear. About 24 hours after discharge she began to experience worsening shortness of breath. Upon presentation to the ER, the patient was afebrile and tachypneic, but was otherwise hemodynamically stable. She was also hypoxic with SPO2 of 83%. Laboratory studies revealed a normal white blood cell count and her chest x-ray showed complete opacification of the left hemithorax concerning for large pleural effusion versus atelectasis as well as a possible filling defect of the left mainstem bronchus. Pulmonology saw the patient in the emergency department and took her directly to the bronchoscopy suite. During the Dae, the patient became extremely hypoxic and was intubated and transferred to the ICU. The next day, the bronchoscopy was again attempted and there was a large amount of mucopurulent secretions and mucous plugging noted. Secretions were cleared and the patient was extubated. Nephrology was consulted for hemodialysis management. She did have an episode of A-fib RVR, converted back to NSR with a one-time dose of IV Lopressor. Since admission, the patient's respiratory status has improved. She has been on IV Rocephin. BAL cultures from this hospitalization again grew Serratia marcescens. We've been asked to evaluate and make further recommendations. During my exam today, the patient is somewhat of a poor historian in regards to the events leading up to this hospitalization, but her family is at the bedside and able to provide me with some information. She states that she had worsening shortness of breath and cough. She states she didn't really feel much better prior to discharge and her respiratory status has continued to decline. She denies any known fevers or chills or rigors. She denies any headache or neck pain. She reports rhinorrhea with clear discharge, but denies any earache or sore throat. She denies any pain in her chest. She does report a cough productive of clear sputum on a normal basis. She denies any nausea or vomiting or diarrhea. She states her appetite is good. She denies abdominal pain. She is and uric due to her end-stage renal disease. She denies pain in her back or lower extremities. She lives at home with her . She does have 1 dog. She denies any recent travel. She denies tobacco, alcohol, or illicit drug use. CC: Zeenat Mckeon MD Past Med Surg Social Fam HX - Past Medical History Attestation: Yes The following information was validated with the patient. Source: patient, old records reviewed, nursing notes reviewed Medical history: asthma, COPD, DVT, dialysis, hyperlipidemia, hypertension, osteoporosis, renal disease, other (Pneumonia) Psychiatric history: no psych history - Past Surgical History Surgical History: other - Social History Smoking Status: Former smoker Smokeless Tobacco Status: No Alcohol use: none Drug use: none - Family History Mother Living Status: Hx Family Cardiac Disorders: No Hx Family Respiratory Disorders: No Hx Family Cancer: Yes (Colon) Hx Family GI Disorders: No Hx Family Endocrine Disorder: Yes (Borderline DM) Hx Family Neuromuscular Disorders: No Hx Family Neurologic Disorders: No Hx Family HEENT Disorders: No Hx Family Autoimmune Disorders: No Infectious Disease-CN:Meds Albuterol Sulfate [Ventolin Hfa] 2 puff IH Q4H PRN 10/12/16 [History] Allopurinol [Zyloprim] 100 mg PO DAILY 10/12/16 [History] Aspirin 81 mg PO DAILY 10/12/16 [History] Atorvastatin [Lipitor] 40 mg PO HS 10/12/16 [History] Budesonide/Formoterol 160/4.5 [Symbicort 160/4.5] 2 puff IH BIDR 10/12/16 [ History] Cholecalciferol (Vitamin D3) [Vitamin D3] 2,000 unit PO DAILY 10/12/16 [History] Furosemide [Lasix] 20 mg PO QPM 10/12/16 [History] Furosemide [Lasix] 40 mg PO QAM 10/12/16 [History] Ipratropium [place] 2 spray NS BID 01/14/17 [History] Levothyroxine [Synthroid] 25 mcg PO DAILY 01/14/17 [History] Metoprolol XL (24 HR) Succ [Toprol Xl] 50 mg PO DAILY 01/14/17 [History] Multivitamin [Multi-Day Vitamins] 1 tab PO DAILY 01/14/17 [History] Acetylcysteine [O-Iqubuv-y-Cysteine] 600 mg PO TID 03/11/17 [History] HYDROcodone/Acet 5/325 mg [[place] 5-325 mg] 1 tab PO TID PRN 03/11/17 [History] Loratadine [Claritin] 10 mg PO DAILY 03/11/17 [History] Sevelamer [Renvela] 1,600 mg PO TIDWM 03/11/17 [History] Tizanidine HCl 4 mg PO TID PRN 03/11/17 [History] Losartan [Cozaar] 50 mg PO BID #60 tablet 03/14/17 [Rx] amLODIPine [Norvasc] 10 mg PO DAILY #30 tablet 03/14/17 [Rx] Pregabalin [Lyrica] 50 mg PO BID 11/22/17 [History] Benzonatate [Tessalon] 100 mg PO TID PRN #12 capsule 11/24/17 [Rx] Cefdinir [Omnicef] 300 mg PO DAILY #4 capsule 02/15/18 [Rx] Guaifenesin [Mucinex] 600 mg PO BID PRN #8 tab.er.12h 11/24/17 [Rx] 3 Allergy/AdvReac Type Severity Reaction Status Date / Time codeine Allergy Rash Verified 11/25/17 14:42 gabapentin Allergy Itching Verified 11/25/17 14:42 All systems: reviewed and no additional remarkable complaints except as stated Exam - Constitutional Vitals: Temp Pulse Resp BP Pulse Ox 98.3 F 65 20 177/80 95 11/30/17 13:38 11/30/17 06:37 11/30/17 13:38 11/30/17 13:38 11/30/17 06:37 General appearance: average body habitus, cooperative, no acute distress - Head Head exam: Present: atraumatic, normal inspection, normocephalic - Eye Eye exam: Present: EOMI, normal appearance, PERRL Pupils: Present: normal accommodation - ENT ENT exam: Present: mucous membranes moist - Neck Neck exam: Present: normal inspection - Respiratory Respiratory exam: Present: CTAB. Absent: rales, respiratory distress, rhonchi, wheezes - Cardiovascular Cardiovascular exam: Present: RRR, +S1, +S2 - GI/Abdominal GI/Abdominal exam: Present: normal bowel sounds, soft. Absent: distended, tenderness - Extremities Exam Extremities exam: Present: normal inspection. Absent: joint swelling, pedal edema, tenderness - Neurological Exam Neurological exam: Present: alert, oriented X3, no focal deficits - Psychiatric Psychiatric exam: Present: normal affect, normal mood - Skin Skin exam: Present: dry, intact, normal color, warm Infectious Disease CN: Results - Labs CBC & Chem 7: 11/30/17 08:30 11/30/17 08:30 Cultures: Cultures 11/25/17 15:07 Gram Stain - Final Left Lower Lobe Lung Respiratory Culture - Final Serratia marcescens 11/25/17 13:02 Influenza Types A,B Antigen (SONJA) - Final Nasopharyngeal Serology: Serology 11/26/17 Range/Units 21:00 Stool Occult Blood Positive A (Negative) Consult Discharge Plan - Plan Referrals: Vladimir Chaidez MD [Primary Care Provider] - (WEB REQUEST SENT ON 11-30-17)
[2017-11-30] MEDS: cefTRIAXone 2,000 MG in Water for inj. (sterile) 20 ML 20 ML IVP SCH (17:10)
[2017-12-01] MEDS: MethylPREDNISolone 40 MG/ML VIAL IVP SCH ×2 (01:39→08:10)
[2017-12-01] MEDS: Levalbuterol Neb 1.25 MG/3 ML IH SCH ×4 (03:47→22:54)
[2017-12-01] MEDS: Acetylcysteine 10% 2 ML INHSOL IH SCH ×4 (03:47→22:54)
[2017-12-01] MEDS: Levothyroxine 25 MCG TABLET PO SCH (06:18)
[2017-12-01] MEDS: Aspirin 81 MG TAB.CHEW PO SCH (08:10)
[2017-12-01] MEDS: amLODIPine 5 MG TABLET PO SCH (08:10)
[2017-12-01] MEDS: Metoprolol XL (24 HR) Succ 50 MG TAB.ER.24H PO SCH ×2 (08:10→20:50)
[2017-12-01] MEDS: *HR* Heparin 5,000 UNIT/ML VIAL SQ SCH ×2 (08:10→17:16)
[2017-12-01] MEDS: Pregabalin 50 MG CAPSULE PO SCH ×2 (08:19→20:50)
--- NOTE | 2017-12-01 09:06 | Nephrology Progress Note ---
Date of Encounter: 12/01/17 Time of Encounter: 08:35 - Assessment and Plan (1) ESRD on dialysis Current Visit: Yes Status: Chronic Acute on chronic respiratory failure, PNA-Serratia marcescens. S/P bronch- mycous plugging. ESRD- No HD today, keeping MWF schedule. Subjective Principal diagnosis: Mucus Plug, Resp Failure Interval history: Sitting up in bed. States feeling better. Continues to have moist productive cough. Admits loose bowels. Objective - Vital Signs Vital signs: Vital Signs Temp Pulse Resp BP Pulse Ox 12/01/17 08:20 95 12/01/17 07:42 97.7 F 65 18 115/88 95 12/01/17 03:48 16 92 11/30/17 23:36 97.6 F 68 16 160/69 95 11/30/17 22:44 16 91 11/30/17 18:51 98 F 74 18 167/78 90 11/30/17 16:15 97.8 F 75 17 179/69 87 11/30/17 15:50 16 93 11/30/17 13:38 98.3 F 20 177/80 11/30/17 13:00 157/64 11/30/17 12:45 156/63 11/30/17 12:30 181/78 11/30/17 12:15 170/81 11/30/17 12:00 173/78 11/30/17 11:45 170/84 11/30/17 11:30 175/78 11/30/17 11:15 174/77 11/30/17 11:00 178/81 11/30/17 10:45 175/85 11/30/17 10:30 166/78 11/30/17 10:15 170/86 11/30/17 10:00 97.4 F L 18 170/86 Intake and Output 11/30/17 12/01/17 12/01/17 23:59 07:59 15:59 Intake Total 340 / 340 240 / 240 Output Total 0 / 0 Balance 340 / 340 240 / 240 Intake: Oral 340 / 340 240 / 240 Output: Urine 0 / 0 Other: Meal Dinner Breakfast Percent of Meal Consumed 100% 100% Stool Size Large Stool Consistency soft Stool Color Brown Green # Bowel Movements 1 - General Appearance General appearance: Present: well-developed, well-nourished, appears started age EENT: Present: mucous membranes moist Neck: Present: no JVD Respiratory: Present: rhonchi Additional Comments: diminished Cardiology: Present: edema, regular rate, regular rhythm Additional Comments: ankle trace Gastrointestinal: Present: normoactive bowel sounds, no tenderness Integumentary: Present: warm and dry Neurologic: Present: alert and oriented x3 - Lab 11/30/17 08:30 11/30/17 08:30 Most recent lab results ABG pH 7.41 pH Units (7.32-7.45) 11/26/17 04:34 ABG pCO2 50 mmHg (35-45) H 11/26/17 04:34 ABG pO2 96 mmHg (85-104) 11/26/17 04:34 ABG HCO3 32 mEq/L (21-27) H 11/26/17 04:34 ABG O2 Saturation 97 % (95-98) 11/26/17 04:34 Calcium 10.1 mg/dL (8.6-10.3) 11/30/17 08:30 Magnesium 2.0 mg/dL (1.6-2.6) 11/27/17 03:48 Consult Discharge Plan - Plan Referrals: Vladimir Chaidez MD [Primary Care Provider] - (WEB REQUEST SENT ON 11-30-17)
[2017-12-01] MEDS: Budesonide/Formoterol 80/4.5 MDI IH SCH ×2 (10:10→22:54)
--- NOTE | 2017-12-01 10:30 | Internal Med Progress Note ---
Date of Encounter: 12/01/17 Time of Encounter: 09:20 - Assessment and plan (1) Acute and chronic respiratory failure with hypoxia Current Visit: Yes Status: Acute Assessment and plan: Continue current management with O2 supplementation while treating underlying pneumonia. Continue to wean FiO2 as tolerated. Currently on 5 L nasal cannula. Moderate risk for complications. (2) Pneumonia Current Visit: Yes Status: Acute Assessment and plan: With Serratia marcescens. Infectious disease consult appreciated. Patient now on ciprofloxacin IV daily. We will decide on the duration of therapy per infectious disease recommendations. Qualifiers: Pneumonia type: due to unspecified organism Laterality: left Lung location: lower lobe of lung Qualified Code(s): J18.1 - Lobar pneumonia, unspecified organism (3) COPD (chronic obstructive pulmonary disease) Current Visit: Yes Status: Chronic Assessment and plan: Since we have been able to wean down patient's O2 supplementation, we will transition her to oral steroids. Continue bronchodilators. Qualifiers: COPD type: unspecified COPD Qualified Code(s): J44.9 - Chronic obstructive pulmonary disease, unspecified (4) ESRD on dialysis Current Visit: Yes Status: Chronic Assessment and plan: Dialysis per nephrology recommendations. She is on MWF schedule. (5) HTN (hypertension) Current Visit: Yes Status: Chronic Assessment and plan: Blood pressure is better controlled this morning. Continue current medications. Qualifiers: Hypertension type: essential hypertension Qualified Code(s): I10 - Essential (primary) hypertension (6) Mucus plugging of bronchi Current Visit: Yes Status: Acute Assessment and plan: Pulmonary toilet and chest percussion. Continue acetylcysteine (7) DVT prophylaxis Current Visit: Yes Status: Acute Assessment and plan: Subcutaneous heparin - Subjective Interval history: Patient is feeling better today. She is able to sit up longer but remains short of breath with activity. Continues to have cough. No fever or chills reported overnight. Was able to be weaned down to 5 L O2 supplementation - Constitutional Vitals: Temp Pulse Resp BP Pulse Ox 97.7 F 65 18 115/88 95 12/01/17 07:42 12/01/17 07:42 12/01/17 07:42 12/01/17 07:42 12/01/17 08:20 General appearance: Present: cooperative, A&O X 3, answers questions appropriately - Respiratory Respiratory exam: Present: prolonged expiratory phase, rhonchi, wheezes. Absent : accessory muscle use, rales - Cardiovascular Cardiovascular exam: Present: RRR, +S1, +S2. Absent: diastolic murmur, gallop, rubs, systolic murmur - GI/Abdominal GI/Abdominal exam: Present: normal bowel sounds, soft, no peritoneal signs. Absent: distended, tenderness - Extremities Exam Extremities exam: Present: warm, radial pulses palpable and symmetrical. Absent : calf tenderness, cyanotic, pedal edema - Neurological Exam Neurological exam: Present: CN II-XII intact, oriented X3, no focal deficits. Absent: facial droop, speech deficit Internal Medicine: Result - Labs CBC & Chem 7: 11/30/17 08:30 11/30/17 08:30 - ABG Interpretation ABG results: ABG ABG pH 7.41 pH Units (7.32-7.45) 11/26/17 04:34 ABG pCO2 50 mmHg (35-45) H 11/26/17 04:34 ABG pO2 96 mmHg (85-104) 11/26/17 04:34 ABG O2 Saturation 97 % (95-98) 11/26/17 04:34 Consult Discharge Plan - Plan Referrals: Vladimir Chaidez MD [Primary Care Provider] - (WEB REQUEST SENT ON 11-30-17)
--- NOTE | 2017-12-01 12:46 | Infectious Disease Progress No ---
Date of Encounter: 12/01/17 Time of Encounter: 12:43 - Assessment and Plan (1) Pneumonia Current Visit: Yes Status: Acute Causative organism: Serratia marcescens. Failed outpatient oral antibiotics. Previously treated with 2 days of Zosyn and was discharged on PO Omnicef. CXR completed 11/25/17 showed complete opacification of the left hemithorax concerning for a large pleural effusion vs. atelectasis, as well as a filling defect in the left mainstem bronchus. Pulmonology consulted and performed bronch that showed large amount of mucopurulent secretions and mucous plugging. BAL grew S. marcescens, resistant to cefazolin. Not sure if this is a resistance issue (Serratia is known to develop AmpC resistance) or a source control issue as the patient had a bronch during her previous hospitalization that also showed extensive mucous plugging and mucopurulent secretions. Continue Ciprofloxacin 400mg IV daily, give after HD on HD days. Will need to monitor closely as the patient does have a history of PAF with RVR during this hospitalization. Duration of treatment depends on the clinical picture. Will likely be able to switch to PO on discharge to complete a 10-14 day course. Dose adjusted for HD patient. Qualifiers: Pneumonia type: due to unspecified organism Laterality: left Lung location: lower lobe of lung Qualified Code(s): J18.1 - Lobar pneumonia, unspecified organism (2) Acute and chronic respiratory failure with hypoxia Current Visit: Yes Status: Acute Secondary to PNA and mucous plugging. Required short-term intubation after attempted bronchoscopy. Extubated 11/26/17. Improved. Continues to require full-time O2 support at 5LPM. Pulmonology consulted and following. (3) Mucus plugging of bronchi Current Visit: Yes Status: Acute Secondary to PNA and COPD. Status post bronchoscopy with clearing of secretions. Antibiotic recommendations as above. Further management per the primary and pulmonology teams. (4) Collapse of left lung Current Visit: No Status: Acute Secondary to mucous plugs. Resolved. Repeat CXR showed improved aeration of the left lung. (5) Elevated troponin Current Visit: Yes Status: Acute Likely demand ischemia. Further workup and management per the primary team. (6) ESRD on dialysis Current Visit: Yes Status: Chronic Nephrology consulted and following. Dose-adjust antibiotics. (7) COPD (chronic obstructive pulmonary disease) Current Visit: Yes Status: Chronic Qualifiers: COPD type: unspecified COPD Qualified Code(s): J44.9 - Chronic obstructive pulmonary disease, unspecified (8) HTN (hypertension) Current Visit: Yes Status: Chronic Qualifiers: Hypertension type: essential hypertension Qualified Code(s): I10 - Essential (primary) hypertension (9) PAF (paroxysmal atrial fibrillation) Current Visit: Yes Status: Acute Had one episode of RVR, but converted to NSR after 1 dose of IV Lopressor. Cardiology consulted and recommendations noted. Further management per the primary team. - Subjective Interval history: Patient seen and examined. No acute events noted overnight. Patient resting in bed. Reports dyspnea on exertion and non-productive, moist cough. Denies chest pain. Denies nausea, vomiting, or constipation. Reports one loose stool yesterday and one so far this morning. She remains anuric. She denies oral thrush or skin lesions. She denies pain. Infect Dis PN-Objective Data - Labs CBC & Chem 7: 11/30/17 08:30 11/30/17 08:30 Cultures: Serology 11/26/17 Range/Units 21:00 Stool Occult Blood Positive A (Negative) Exam - Constitutional Vitals: Temp Pulse Resp BP Pulse Ox 97.5 F L 69 20 187/70 95 12/01/17 11:18 12/01/17 11:18 12/01/17 11:18 12/01/17 11:18 12/01/17 11:18 General appearance: average body habitus, cooperative, no acute distress - Head Head exam: Present: atraumatic, normal inspection, normocephalic - Eye Eye exam: Present: EOMI, normal appearance, PERRL Pupils: Present: normal accommodation - ENT ENT exam: Present: mucous membranes moist - Neck Neck exam: Present: normal inspection - Respiratory Respiratory exam: Present: CTAB. Absent: rales, respiratory distress, rhonchi, wheezes - Cardiovascular Cardiovascular exam: Present: RRR, +S1, +S2 - GI/Abdominal GI/Abdominal exam: Present: normal bowel sounds, soft. Absent: distended, tenderness - Extremities Exam Extremities exam: Present: normal inspection. Absent: joint swelling, pedal edema, tenderness Additional comments: AV fistula noted to the LUE +/+. - Neurological Exam Neurological exam: Present: alert, oriented X3, no focal deficits - Psychiatric Psychiatric exam: Present: normal affect, normal mood - Skin Skin exam: Present: dry, intact, normal color, warm Consult Discharge Plan - Plan Referrals: Vladimir Chaidez MD [Primary Care Provider] - (WEB REQUEST SENT ON 11-30-17)
[2017-12-01] MEDS: predniSONE 20 MG TABLET PO SCH (17:14)
[2017-12-02] MEDS: Levalbuterol Neb 1.25 MG/3 ML IH SCH ×4 (03:27→22:16)
[2017-12-02] MEDS: Acetylcysteine 10% 2 ML INHSOL IH SCH ×4 (03:27→22:16)
[2017-12-02] MEDS: *HR* Heparin 5,000 UNIT/ML VIAL SQ SCH ×3 (05:49→18:10)
[2017-12-02] MEDS: Levothyroxine 25 MCG TABLET PO SCH (05:53)
[2017-12-02] MEDS: predniSONE 20 MG TABLET PO SCH ×2 (07:48→17:59)
[2017-12-02] MEDS: Aspirin 81 MG TAB.CHEW PO SCH (07:49)
[2017-12-02] MEDS: Metoprolol XL (24 HR) Succ 50 MG TAB.ER.24H PO SCH ×2 (07:49→20:42)
[2017-12-02] MEDS: amLODIPine 5 MG TABLET PO SCH (07:49)
[2017-12-02] MEDS: Pregabalin 50 MG CAPSULE PO SCH ×2 (07:49→20:42)
[2017-12-02] MEDS ORDERED: 0.9 % Sodium Chloride 250 ML IVC PRN (09:11)
--- NOTE | 2017-12-02 09:11 | Electrocardiograph Report ---
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
--- NOTE | 2017-12-02 09:23 | Infectious Disease Progress No ---
Date of Encounter: 12/02/17 Time of Encounter: 09:21 - Assessment and Plan (1) Pneumonia Current Visit: Yes Status: Acute Causative organism: Serratia marcescens. Failed outpatient oral antibiotics. Previously treated with 2 days of Zosyn and was discharged on PO Omnicef. CXR completed 11/25/17 showed complete opacification of the left hemithorax concerning for a large pleural effusion vs. atelectasis, as well as a filling defect in the left mainstem bronchus. Pulmonology consulted and performed bronch that showed large amount of mucopurulent secretions and mucous plugging. BAL grew S. marcescens, resistant to cefazolin. Not sure if this is a resistance issue (Serratia is known to develop AmpC resistance) or a source control issue as the patient had a bronch during her previous hospitalization that also showed extensive mucous plugging and mucopurulent secretions. Continue Ciprofloxacin 400mg IV daily, give after HD on HD days. Will need to monitor closely as the patient does have a history of PAF with RVR during this hospitalization. Duration of treatment depends on the clinical picture. Will likely be able to switch to PO on discharge to complete a 10-14 day course. Dose adjusted for HD patient. Qualifiers: Pneumonia type: due to unspecified organism Laterality: left Lung location: lower lobe of lung Qualified Code(s): J18.1 - Lobar pneumonia, unspecified organism (2) Acute and chronic respiratory failure with hypoxia Current Visit: Yes Status: Acute Secondary to PNA and mucous plugging. Required short-term intubation after attempted bronchoscopy. Extubated 11/26/17. Improved. Continues to require full-time O2 support, but down to 3LPM which is the patient 's home O2 dose. Pulmonology consulted and following. (3) Mucus plugging of bronchi Current Visit: Yes Status: Acute Secondary to PNA and COPD. Status post bronchoscopy with clearing of secretions. Antibiotic recommendations as above. Further management per the primary and pulmonology teams. (4) Collapse of left lung Current Visit: No Status: Acute Secondary to mucous plugs. Resolved. Repeat CXR showed improved aeration of the left lung. (5) Elevated troponin Current Visit: Yes Status: Acute Likely demand ischemia. Further workup and management per the primary team. (6) ESRD on dialysis Current Visit: Yes Status: Chronic Nephrology consulted and following. Dose-adjust antibiotics. (7) COPD (chronic obstructive pulmonary disease) Current Visit: Yes Status: Chronic Qualifiers: COPD type: unspecified COPD Qualified Code(s): J44.9 - Chronic obstructive pulmonary disease, unspecified (8) HTN (hypertension) Current Visit: Yes Status: Chronic Qualifiers: Hypertension type: essential hypertension Qualified Code(s): I10 - Essential (primary) hypertension (9) PAF (paroxysmal atrial fibrillation) Current Visit: Yes Status: Acute Had one episode of RVR, but converted to NSR after 1 dose of IV Lopressor. Cardiology consulted and recommendations noted. Further management per the primary team. - Subjective Interval history: Patient seen and examined. No acute events noted overnight. Patient resting in bed. Reports dyspnea on exertion and non-productive, moist cough. Denies chest pain. Denies nausea, vomiting, or constipation. Reports one loose stool yesterday, none this morning. She remains anuric. She denies oral thrush or skin lesions. She denies pain. She is scheduled for dialysis later today. Infect Dis PN-Objective Data - Labs CBC & Chem 7: 11/30/17 08:30 11/30/17 08:30 Cultures: Serology 11/26/17 Range/Units 21:00 Stool Occult Blood Positive A (Negative) Exam - Constitutional Vitals: Temp Pulse Resp BP Pulse Ox 97.6 F 60 20 179/83 93 12/02/17 08:43 12/02/17 08:43 12/02/17 08:43 12/02/17 08:43 12/02/17 08:43 General appearance: average body habitus, cooperative, no acute distress - Head Head exam: Present: atraumatic, normal inspection, normocephalic - Eye Eye exam: Present: EOMI, normal appearance, PERRL Pupils: Present: normal accommodation - ENT ENT exam: Present: mucous membranes moist - Neck Neck exam: Present: normal inspection - Respiratory Respiratory exam: Present: rhonchi (Throughout). Absent: rales, respiratory distress, wheezes - Cardiovascular Cardiovascular exam: Present: RRR, +S1, +S2 - GI/Abdominal GI/Abdominal exam: Present: normal bowel sounds, soft. Absent: distended, tenderness - Extremities Exam Extremities exam: Present: normal inspection. Absent: joint swelling, pedal edema, tenderness Additional comments: AV fistula noted to the LUE +/+. - Neurological Exam Neurological exam: Present: alert, oriented X3, no focal deficits - Psychiatric Psychiatric exam: Present: normal affect, normal mood - Skin Skin exam: Present: dry, intact, normal color, warm Consult Discharge Plan - Plan Referrals: Vladimir Chaidez MD [Primary Care Provider] - (WEB REQUEST SENT ON 11-30-17)
--- NOTE | 2017-12-02 09:55 | Nephrology Progress Note ---
Date of Encounter: 12/02/17 Time of Encounter: 09:40 - Assessment and Plan (1) ESRD on dialysis Current Visit: Yes Status: Chronic Acute on chronic respiratory failure, PNA-Serratia marcescens. S/P bronch- mycous plugging. ESRD-HD today, keeping MWF schedule. Orders given. Will add Hydralazine 25mg BID for [id number]. Subjective Principal diagnosis: Mucus Plug, Resp Failure Interval history: Seen on HD. Sitting up in bed. States feeling better. Continues to have moist productive cough. Objective - Vital Signs Vital signs: Vital Signs Temp Pulse Resp BP Pulse Ox 12/02/17 08:43 97.6 F 60 20 179/83 93 12/02/17 07:24 97.6 F 62 16 193/74 99 12/02/17 04:03 97.5 F L 59 16 173/69 95 12/02/17 03:28 17 97 12/01/17 23:10 98 F 69 16 174/75 98 12/01/17 22:56 18 93 12/01/17 19:28 97.9 F 70 17 172/77 92 12/01/17 15:52 98.4 F 70 20 169/72 90 12/01/17 15:08 18 87 12/01/17 11:18 97.5 F L 69 20 187/70 95 12/01/17 10:10 18 95 Intake and Output 12/01/17 12/02/17 12/02/17 23:59 07:59 15:59 Intake Total 240 / 240 480 / 480 Output Total 0 / 0 Balance 240 / 240 480 / 480 Intake: Oral 240 / 240 480 / 480 Output: Urine 0 / 0 Other: Meal Dinner Percent of Meal Consumed 90% # Voids 0 0 # Bowel Movements 0 Weight 66.224 kg Patient Weight 12/02/17 23:59 Weight 66.224 kg - General Appearance General appearance: Present: well-developed, well-nourished, appears started age EENT: Present: mucous membranes moist Neck: Present: no JVD Respiratory: Present: rhonchi Cardiology: Present: edema, regular rate, regular rhythm Additional Comments: mild ankle, shriveled skin Gastrointestinal: Present: normoactive bowel sounds, no tenderness Integumentary: Present: warm and dry Neurologic: Present: alert and oriented x3 - Lab 11/30/17 08:30 11/30/17 08:30 Most recent lab results ABG pH 7.41 pH Units (7.32-7.45) 11/26/17 04:34 ABG pCO2 50 mmHg (35-45) H 11/26/17 04:34 ABG pO2 96 mmHg (85-104) 11/26/17 04:34 ABG HCO3 32 mEq/L (21-27) H 11/26/17 04:34 ABG O2 Saturation 97 % (95-98) 11/26/17 04:34 Calcium 10.1 mg/dL (8.6-10.3) 11/30/17 08:30 Magnesium 2.0 mg/dL (1.6-2.6) 11/27/17 03:48 Consult Discharge Plan - Plan Referrals: Vladimir Chaidez MD [Primary Care Provider] - (WEB REQUEST SENT ON 11-30-17)
[2017-12-02] MEDS: Budesonide/Formoterol 80/4.5 MDI IH SCH ×2 (10:48→22:15)
[2017-12-02] MEDS ORDERED: 0.9 % Sodium Chloride 2,000 ML ONE (12:37)
[2017-12-02] MEDS: hydrALAZINE 25 MG TABLET PO SCH ×2 (13:33→20:42)
--- NOTE | 2017-12-02 15:08 | Internal Med Progress Note ---
Date of Encounter: 12/02/17 Time of Encounter: 14:52 - Assessment and plan (1) Acute and chronic respiratory failure with hypoxia Current Visit: Yes Status: Acute Assessment and plan: Improving. Able to wean down to 3 L O2 supplementation. Patient has been recommended inpatient rehabilitation/swing bed. 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 (2) Pneumonia Current Visit: Yes Status: Acute Assessment and plan: With Serratia marcescens. On IV ciprofloxacin. Recommend 10 days of antibiotic therapy. Moderate risk for complications Qualifiers: Pneumonia type: due to unspecified organism Laterality: left Lung location: lower lobe of lung Qualified Code(s): J18.1 - Lobar pneumonia, unspecified organism (3) COPD (chronic obstructive pulmonary disease) Current Visit: Yes Status: Chronic Assessment and plan: Continue to taper steroids. Clinically improving. On bronchodilators as needed. Qualifiers: COPD type: unspecified COPD Qualified Code(s): J44.9 - Chronic obstructive pulmonary disease, unspecified (4) ESRD on dialysis Current Visit: Yes Status: Chronic Assessment and plan: Dialyze today. Nephrology following (5) HTN (hypertension) Current Visit: Yes Status: Chronic Assessment and plan: Pressure remains elevated. Hydralazine added by nephrology. Qualifiers: Hypertension type: essential hypertension Qualified Code(s): I10 - Essential (primary) hypertension (6) Mucus plugging of bronchi Current Visit: Yes Status: Acute Assessment and plan: Continue pulmonary toilet and chest percussion therapy. (7) DVT prophylaxis Current Visit: Yes Status: Acute Assessment and plan: With subcutaneous heparin. - Subjective Interval history: Patient continues to clinically improve. She was evaluated by physical therapy yesterday and recommended placement to inpatient rehabilitation. Presently on 3 L nasal cannula which is her baseline. Has not had any fever overnight. No chest pain reported. No nausea or vomiting. Tolerating diet well. - Constitutional Vitals: Temp Pulse Resp BP Pulse Ox 97.4 F L 60 18 167/88 93 12/02/17 13:10 12/02/17 08:43 12/02/17 13:10 12/02/17 13:10 12/02/17 08:43 General appearance: Present: cooperative, mild distress, A&O X 3, answers questions appropriately - Neck Neck exam general surgery: Present: supple, trachea midline. Absent: lymphadenopathy - Respiratory Respiratory exam: Present: prolonged expiratory phase. Absent: accessory muscle use, rales, rhonchi, wheezes Additional comments: coarse breath sounds bilaterally - Cardiovascular Cardiovascular exam: Present: RRR, +S1, +S2. Absent: diastolic murmur, gallop, rubs, systolic murmur - Extremities Exam Extremities exam: Present: warm, radial pulses palpable and symmetrical. Absent : calf tenderness, cyanotic, pedal edema - Neurological Exam Neurological exam: Present: alert, oriented X3, no focal deficits. Absent: facial droop, speech deficit Internal Medicine: Result - Labs CBC & Chem 7: 11/30/17 08:30 11/30/17 08:30 - ABG Interpretation ABG results: ABG ABG pH 7.41 pH Units (7.32-7.45) 11/26/17 04:34 ABG pCO2 50 mmHg (35-45) H 11/26/17 04:34 ABG pO2 96 mmHg (85-104) 11/26/17 04:34 ABG O2 Saturation 97 % (95-98) 11/26/17 04:34 Consult Discharge Plan - Plan Referrals: Vladimir Chaidez MD [Primary Care Provider] - (WEB REQUEST SENT ON 11-30-17)
--- NOTE | 2017-12-02 18:53 | Event Note ---
Date of Encounter: 12/03/17 Time of Encounter: 17:00 Patient requiring increased O2 supplementation to keep sats at 87%. Did not improve after chest PT and bronchodilators. Will obtain Xray and ABG. Patient not complaining of any symptoms at this time.
[2017-12-02 19:33] LABS: ABG Base Excess 11 mEq/L (-2 to 3); ABG HCO3 35 mEq/L (21-27); ABG Oxygen Saturation 91 % (95-98); ABG PCO2 43 mmHg (35-45); ABG PH 7.52 pH Units (7.32-7.45); ABG PO2 55 mmHg (85-104); ABG TCO2 37 mEq/L (20-26)
[2017-12-03] MEDS: Levalbuterol Neb 1.25 MG/3 ML IH SCH ×3 (04:33→16:05)
[2017-12-03] MEDS: Acetylcysteine 10% 2 ML INHSOL IH SCH ×3 (04:33→16:05)
[2017-12-03] MEDS: *HR* Heparin 5,000 UNIT/ML VIAL SQ SCH ×2 (05:09→19:15)
[2017-12-03] MEDS: Levothyroxine 25 MCG TABLET PO SCH (05:09)
[2017-12-03] MEDS ORDERED: hydrALAZINE 25 MG TABLET PO SCH (08:05)
[2017-12-03] MEDS: Metoprolol XL (24 HR) Succ 50 MG TAB.ER.24H PO SCH (08:15)
[2017-12-03] MEDS: amLODIPine 5 MG TABLET PO SCH (08:15)
[2017-12-03] MEDS: predniSONE 20 MG TABLET PO SCH ×2 (08:15→16:23)
[2017-12-03] MEDS: Pregabalin 50 MG CAPSULE PO SCH (08:15)
[2017-12-03] MEDS: Aspirin 81 MG TAB.CHEW PO SCH (08:15)
--- NOTE | 2017-12-03 08:17 | Nephrology Progress Note ---
Date of Encounter: 12/03/17 Time of Encounter: 08:00 - Assessment and Plan (1) ESRD on dialysis Current Visit: Yes Status: Chronic Acute on chronic respiratory failure, PNA-Serratia marcescens. S/P bronch- mycous plugging. ESRD-No HD today, keeping MWF schedule. Will increase Hydralazine 50mg BID for [id number]. Subjective Principal diagnosis: Mucus Plug, Resp Failure Interval history: Sitting up in chair. States feeling better. Continues to have moist productive cough. Objective - Vital Signs Vital signs: Vital Signs Temp Pulse Resp BP Pulse Ox 12/03/17 07:04 97.9 F 68 15 168/62 93 12/03/17 04:36 14 96 12/03/17 03:37 98.1 F 66 16 166/66 91 12/02/17 23:41 97.8 F 69 16 168/67 92 12/02/17 22:19 14 90 12/02/17 20:35 98.1 F 71 16 171/69 90 12/02/17 17:28 78 20 87 12/02/17 16:40 18 152/66 87 12/02/17 16:21 99.0 F 72 18 152/66 87 12/02/17 13:10 97.4 F L 18 167/88 12/02/17 12:40 164/77 12/02/17 12:25 162/77 12/02/17 12:10 161/74 12/02/17 11:55 159/76 12/02/17 11:40 162/77 12/02/17 11:25 159/76 12/02/17 11:10 161/77 12/02/17 10:55 166/80 12/02/17 10:40 165/81 12/02/17 10:25 167/76 12/02/17 10:10 171/78 12/02/17 09:55 165/75 12/02/17 09:40 98.1 F 18 174/80 12/02/17 08:43 97.6 F 60 20 179/83 93 Intake and Output 12/02/17 12/03/17 12/03/17 23:59 07:59 15:59 Intake Total 120 / 120 Balance 120 / 120 Intake: Oral 120 / 120 Other: Meal Lunch Percent of Meal Consumed 90% # Voids 0 0 # Bowel Movements 0 0 Weight 66.2 kg Patient Weight 12/03/17 23:59 Weight 66.2 kg - General Appearance General appearance: Present: well-developed, well-nourished, appears started age EENT: Present: mucous membranes moist Neck: Present: no JVD Respiratory: Present: clear Cardiology: Present: edema, regular rate, regular rhythm Additional Comments: mild ankle Gastrointestinal: Present: normoactive bowel sounds, no tenderness Integumentary: Present: warm and dry Neurologic: Present: alert and oriented x3 - Lab 11/30/17 08:30 11/30/17 08:30 Most recent lab results ABG pH 7.52 pH Units (7.32-7.45) H 12/02/17 19:29 ABG pCO2 43 mmHg (35-45) 12/02/17 19:29 ABG pO2 55 mmHg (85-104) L 12/02/17 19:29 ABG HCO3 35 mEq/L (21-27) H 12/02/17 19:29 ABG O2 Saturation 91 % (95-98) L 12/02/17 19:29 Calcium 10.1 mg/dL (8.6-10.3) 11/30/17 08:30 Magnesium 2.0 mg/dL (1.6-2.6) 11/27/17 03:48 Consult Discharge Plan - Plan Referrals: Vladimir Chaidez MD [Primary Care Provider] - (WEB REQUEST SENT ON 11-30-17)
[2017-12-03] MEDS: Budesonide/Formoterol 80/4.5 MDI IH SCH (09:49)
--- NOTE | 2017-12-03 13:43 | Discharge Summary ---
Date of Encounter: 12/03/17 Time of Encounter: 13:43 - Discharge Diagnosis (1) Acute and chronic respiratory failure with hypoxia Priority: Primary Status: Acute (2) Pneumonia Priority: Secondary Status: Acute Qualifiers: Pneumonia type: due to unspecified organism Laterality: left Lung location: lower lobe of lung Qualified Code(s): J18.1 - Lobar pneumonia, unspecified organism (3) COPD (chronic obstructive pulmonary disease) Priority: Secondary Status: Chronic Qualifiers: COPD type: unspecified COPD Qualified Code(s): J44.9 - Chronic obstructive pulmonary disease, unspecified (4) ESRD on dialysis Priority: Secondary Status: Chronic (5) HTN (hypertension) Priority: Secondary Status: Chronic Qualifiers: Hypertension type: essential hypertension Qualified Code(s): I10 - Essential (primary) hypertension (6) Mucus plugging of bronchi Priority: Secondary Status: Acute (7) DVT prophylaxis Priority: Secondary Status: Acute (8) Anemia in chronic kidney disease (CKD) Priority: Secondary Status: Chronic Qualifiers: Chronic kidney disease stage: on chronic dialysis Qualified Code(s): N18.6 - End stage renal disease; D63.1 - Anemia in chronic kidney disease; D63.1 - Anemia in chronic kidney disease; Z99.2 - Dependence on renal dialysis; Z99.2 - Dependence on renal dialysis; Z99.2 - Dependence on renal dialysis; Z99.2 - Dependence on renal dialysis Hospital course: Ms. Carmona is a 77 year old female with history of COPD, asthma, hypertension , hyperlipidemia was hospitalized after presenting with shortness of breath and respiratory failure during bronchoscopy for right-sided mucous plug. She was treated with broad-spectrum antibiotics and O2 supplementation along with pulmonary toilet. She then underwent repeat bronchoscopy was found to have numerous mucous plugs and bronchiectatic changes in the left lower lobe. These were cleaned out. Patient was then extubated. Patient developed atrial fibrillation during her stay and cardiology was consulted. They recommended to continue beta blocked current therapy and aspirin. Patient would meet criteria for starting anticoagulation but she does have an anemia and heme-positive stool. As such this will be further addressed as outpatient. BAL cultures from bronchoscopy were positive for Serratia marcescens. Patient's prior cultures from her last hospitalization grew the same organism. Infectious disease was consulted for antibiotic recommendations. They recommended placing the patient on ciprofloxacin and to complete a 10 day antibiotic course to complete treatment for pneumonia. Patient has continued to receive pulmonary toilet and chest percussion therapy. She has required increasing amounts of oxygen intermittently especially in the evening. She is presently on 5 L O2 supplementation and is saturating at 92%. She will be discharged with prescription for this amount of oxygen. She is on tapering course of steroids. And will continue this at discharge. She will follow up with her primary care provider and cyber security engineer for further management. Patient was evaluated by physical therapy and recommended placement to inpatient rehabilitation/swing bed. However patient does not wish to go there and has also refused home health care services. She will therefore be discharged home. Discharge discussed with: patient, nurse - Time Spent with Patient Total time spent providing and/or coordinating discharge services: Greater than 30 minutes (40 min) - Discharge Medications Prescriptions: Ciprofloxacin HCl [Cipro] 500 mg PO DAILY #3 tablet hydrALAZINE [HydrALAZINE] 50 mg PO BID #120 tablet predniSONE [PredniSONE] 40 mg PO BIDWM 16 Days tablet Home Medications: Albuterol Sulfate [Ventolin Hfa] 2 puff IH Q4H PRN 10/12/16 [History] Allopurinol [Zyloprim] 100 mg PO DAILY 10/12/16 [History] Aspirin 81 mg PO DAILY 10/12/16 [History] Atorvastatin [Lipitor] 40 mg PO HS 10/12/16 [History] Budesonide/Formoterol 160/4.5 [Symbicort 160/4.5] 2 puff IH BIDR 10/12/16 [ History] Cholecalciferol (Vitamin D3) [Vitamin D3] 2,000 unit PO DAILY 10/12/16 [History] Furosemide [Lasix] 20 mg PO QPM 10/12/16 [History] Furosemide [Lasix] 40 mg PO QAM 10/12/16 [History] Ipratropium [place] 2 spray NS BID 01/14/17 [History] Levothyroxine [Synthroid] 25 mcg PO DAILY 01/14/17 [History] Metoprolol XL (24 HR) Succ [Toprol Xl] 50 mg PO DAILY 01/14/17 [History] Multivitamin [Multi-Day Vitamins] 1 tab PO DAILY 01/14/17 [History] Acetylcysteine [A-Bmxrwv-n-Cysteine] 600 mg PO TID 03/11/17 [History] HYDROcodone/Acet 5/325 mg [[place] 5-325 mg] 1 tab PO TID PRN 03/11/17 [History] Loratadine [Claritin] 10 mg PO DAILY 03/11/17 [History] Sevelamer [Renvela] 1,600 mg PO TIDWM 03/11/17 [History] Tizanidine HCl 4 mg PO TID PRN 03/11/17 [History] Losartan [Cozaar] 50 mg PO BID #60 tablet 03/14/17 [Rx] amLODIPine [Norvasc] 10 mg PO DAILY #30 tablet 03/14/17 [Rx] Pregabalin [Lyrica] 50 mg PO BID 11/22/17 [History] Benzonatate [Tessalon] 100 mg PO TID PRN #12 capsule 11/24/17 [Rx] Guaifenesin [Mucinex] 600 mg PO BID PRN #8 tab.er.12h 11/24/17 [Rx] Ciprofloxacin HCl [Cipro] 500 mg PO DAILY #3 tablet 12/03/17 [Rx] hydrALAZINE [HydrALAZINE] 50 mg PO BID #120 tablet 12/03/17 [Rx] predniSONE [PredniSONE] 40 mg PO BIDWM 16 Days tablet 12/03/17 [Rx] Allergies/Adverse Reactions: 3 Allergy/AdvReac Type Severity Reaction Status Date / Time codeine Allergy Rash Verified 11/25/17 14:42 gabapentin Allergy Itching Verified 11/25/17 14:42 Date of admission: 11/25/17 17:25 Primary care physician: Vladimir Chaidez MD Consults: 11/26/17 08:30 Consult to Dialysis [CONS] ONCE 11/27/17 02:52 Consult to Cardiology [CONS] Routine Comment: Consulting Provider: [facility] Reason for Consult: A. Fib RVR: Patient reports hx A. Fib on home metoprolol and amiodarone. While in ICU has not received these meds. No record at [facility] of A. Fib. Was NRS however went into A. Fib RVR to 140's overnight, SBP 160's. EKG in ICU showing A. Fib. Gave 5mg lopressor IV x1 followed by home meds. Now NSR with paroxysmal A. Fib. AM TSH, Mg, echo ordered. No anticoag or antiplatelet in ICU (likely GI bleed). At home: aspirin with no anticoag. Time Notified: 02:53 Call Completed: No 11/28/17 08:15 Consult to Dialysis [CONS] ONCE 11/30/17 07:42 Consult to Infectious Diseases [CONS] Routine Consulting Provider: [facility] Reason for Consult: Serratia in BAL culture; persistent despite antibiotics Time Notified: 07:42 Call Completed: Yes 11/30/17 08:45 Consult to Dialysis [CONS] ONCE 12/01/17 10:28 Consult to Occupational Therapy [CONS] Routine Comment: Evaluate, develop and implement POC Reason for Consult: Generalized weakness Consult to Physical Therapy [CONS] Routine Comment: Evaluate, develop and implement POC Reason for Consult: Generalized weakness 12/02/17 07:32 Consult to [facility] [CONS] Routine Reason for SW Consult: needs swing bed 12/02/17 09:15 Consult to Dialysis [CONS] ONCE Discharging clinician: Zeenat Mckeon Anticipated date of discharge: 12/03/17 - Constitutional Vitals: Temp Pulse Resp BP Pulse Ox 97.5 F L 68 17 173/71 92 12/03/17 10:46 12/03/17 10:46 12/03/17 10:46 12/03/17 10:46 12/03/17 10:46 General appearance: Present: cooperative, mild distress, A&O X 3, answers questions appropriately - Neck Neck exam general surgery: Present: supple, trachea midline. Absent: lymphadenopathy - Respiratory Respiratory exam: Present: prolonged expiratory phase, rhonchi. Absent: accessory muscle use, rales, wheezes - Cardiovascular Cardiovascular exam: Present: RRR, +S1, +S2. Absent: diastolic murmur, gallop, rubs, systolic murmur - GI/Abdominal GI/Abdominal exam: Present: normal bowel sounds, soft, no peritoneal signs. Absent: distended, tenderness - Extremities Exam Extremities exam: Present: warm, radial pulses palpable and symmetrical. Absent : calf tenderness, cyanotic, pedal edema - Neurological Exam Neurological exam: Present: alert, oriented X3, no focal deficits. Absent: facial droop, speech deficit - Skin Skin exam: Present: dry, intact - Patient Status Disposition: Home, Self-Care Condition: Good Functional capacity at discharge: uses cane/walker Overall status at discharge: patient is progressing back to baseline - Discharge Instructions Instructions: Acute Respiratory Distress Syndrome (DC), Chronic Obstructive Pulmonary Disease (DC), Pneumonia (DC) Follow Up With: Vladimir Chaidez MD [Primary Care Provider] - (WEB REQUEST SENT ON 11-30-17) Melinda Mccloud MD [Partnered Physician] - (in 1-2 weeks) Santi Urena DO [Partnered Physician] - (in 1 -2 weeks) Alexy Redding MD [Partnered Physician] - (in 2-3 weeks for EGD/colonoscopy) - Diet and Activity Activity: wear oxygen at all times Diet: low fat, low cholesterol, low salt diet
[2017-12-03 15:47] VITALS: BP 160/63
[2017-12-06] MEDS ORDERED: Darbepoetin 100 MCG/0.5 ML SYRINGE SQ SCH (09:00)
== END 2017-12-03 20:00 | disposition home or self-care (01) | DRG 166 ==
LOC: EMEROO 12:22 → 2ANU 12:22 → ICNU 14:50 → SUATTDRO 17:25 → 2ANU 11-29 22:37
PROVIDERS: ADMIT Internal Medicine Pulmonary Disease; ATTEND Internal Medicine
PROC: ENDOBRF (2017-11-26 08:00)

== ENCOUNTER 2018-01-01 11:01 | Inpatient (IN) ==
--- NOTE | 2018-01-01 11:15 | Emergency Department Note ---
Disposition Clinical Impression: Infection of nose Disposition: Admitted As Inpatient Condition: Fair General Adult HPI - General Chief complaint: ED General Medical Stated complaint: face swelling Time Seen by Provider: 01/01/18 11:07 Source: patient, family Limitations: no limitations - History of Present Illness Pain Scale: 8 - Related Data Home Medications Medication Instructions Recorded Confirmed Albuterol Sulfate [Ventolin Hfa] 2 puff IH Q4H PRN 10/12/16 01/01/18 Allopurinol [Zyloprim] 100 mg PO DAILY 10/12/16 01/01/18 Aspirin 81 mg PO DAILY 10/12/16 01/01/18 Atorvastatin [Lipitor] 40 mg PO HS 10/12/16 01/01/18 Budesonide/Formoterol 160/4.5 2 puff IH BIDR 10/12/16 01/01/18 [Symbicort 160/4.5] Cholecalciferol (Vitamin D3) 2,000 unit PO DAILY 10/12/16 01/01/18 [Vitamin D3] Furosemide [Lasix] 20 mg PO QPM 10/12/16 01/01/18 Furosemide [Lasix] 40 mg PO QAM 10/12/16 01/01/18 Levothyroxine [Synthroid] 25 mcg PO DAILY 01/14/17 01/01/18 Metoprolol XL (24 HR) Succ [Toprol 50 mg PO DAILY 01/14/17 01/01/18 Xl] Multivitamin [Multi-Day Vitamins] 1 tab PO DAILY 01/14/17 01/01/18 Acetylcysteine 600 mg PO TID 03/11/17 01/01/18 [B-Bcohnu-u-Cysteine] HYDROcodone/Acet 5/325 mg [[place] 1 tab PO TID PRN 03/11/17 01/01/18 5-325 mg] Loratadine [Claritin] 10 mg PO DAILY 03/11/17 01/01/18 Sevelamer [Renvela] 4,000 mg PO TIDWM 03/11/17 01/01/18 Tizanidine HCl 4 mg PO TID PRN 03/11/17 01/01/18 Pregabalin [Lyrica] 50 mg PO BID 11/22/17 01/01/18 B Complex W-C No.20/Folic Acid 1 mg PO DAILY 01/01/18 01/01/18 [Virt-Caps Softgel] amLODIPine [Norvasc] 5 mg PO BID 01/01/18 01/01/18 Previous Rx's Medication Instructions Recorded Losartan [Cozaar] 50 mg PO BID #60 tablet 03/14/17 hydrALAZINE [HydrALAZINE] 50 mg PO BID #120 tablet 12/03/17 Allergies Allergy/AdvReac Type Severity Reaction Status Date / Time codeine Allergy Rash Verified 11/25/17 14:42 gabapentin Allergy Itching Verified 11/25/17 14:42 Past Medical History - Past Medical History Medical history: Reports: asthma, COPD, DVT, dialysis, hyperlipidemia, hypertension, osteoporosis, renal disease, other Surgical history: Reports: other Psychiatric history: Reports: no psych history - Social History Smoking Status: Former smoker Smokeless Tobacco Status: No Alcohol use: Reports: none Drug use: Reports: none Physical Exam - General Limitations: no limitations General appearance: alert, in no apparent distress Course Vital Signs Temperature 98.2 F 01/01/18 11:03 Pulse Rate 79 01/01/18 11:03 Respiratory Rate 18 01/01/18 11:03 Blood Pressure 181/78 01/01/18 11:03 O2 Sat by Pulse Oximetry 98 01/01/18 11:03 Temperature 98.8 F 01/01/18 15:35 Pulse Rate 68 01/01/18 15:35 Respiratory Rate 17 01/01/18 15:35 Blood Pressure 182/79 01/01/18 15:35 O2 Sat by Pulse Oximetry 97 01/01/18 15:35 Oxygen Delivery Oxygen Delivery Room Air Medical Decision Making - Lab Data Result diagrams: 01/01/18 11:29 01/01/18 12:57 Lab Results 01/01/18 01/01/18 01/01/18 Range/Units 11:29 11:29 11:29 WBC 6.4 (4.3-11.1) K/mcL RBC 2.84 L (3.82-4.97) M/mcL Hgb 9.6 L (11.5-15.4) g/dL Hct 29.6 L (35.3-44.9) % MCV 104.2 H (83.0-100.0) fL MCH 33.8 H (28.0-33.3) pg MCHC 32.4 (31.6-35.5) g/dL RDW 15.1 H (11.5-14.5) % Plt Count 105 L (140-400) K/mcL MPV 10.9 (9.4-12.4) fL Immature Gran % 0.6 (0-4) % Seg Neutrophils % 73.5 % Lymphocytes % 16.2 % Monocytes % 8.9 % Eosinophils % 0.3 % Basophils % 0.5 % Neutrophils # 4.7 (1.6-8.9) K/mcL Lymphocytes # 1.0 (0.6-4.6) K/mcL Monocytes # 0.6 (0.0-1.3) K/mcL Eosinophils # 0.0 (0.0-0.6) K/mcL Basophils # 0.0 (0.0-0.2) K/mcL PT 10.9 (9.4-12.1) Seconds INR 1.0 Sodium (136-145) mEq/L Potassium (3.5-5.1) mEq/L Chloride (98-107) mEq/L Carbon Dioxide (23-29) mEq/L BUN (8-23) mg/dL Creatinine (0.60-1.20) mg/dL Est GFR ( Amer) (> 60) Est GFR (Non-Af Amer) (> 60) BUN/Creatinine Ratio (6-26) Glucose (70-105) mg/dL Calculated Osmolality (280-300) Calcium (8.6-10.3) mg/dL Specimen Rejected Hemolyzed 01/01/18 Range/Units 12:57 WBC (4.3-11.1) K/mcL RBC (3.82-4.97) M/mcL Hgb (11.5-15.4) g/dL Hct (35.3-44.9) % MCV (83.0-100.0) fL MCH (28.0-33.3) pg MCHC (31.6-35.5) g/dL RDW (11.5-14.5) % Plt Count (140-400) K/mcL MPV (9.4-12.4) fL Immature Gran % (0-4) % Seg Neutrophils % % Lymphocytes % % Monocytes % % Eosinophils % % Basophils % % Neutrophils # (1.6-8.9) K/mcL Lymphocytes # (0.6-4.6) K/mcL Monocytes # (0.0-1.3) K/mcL Eosinophils # (0.0-0.6) K/mcL Basophils # (0.0-0.2) K/mcL PT (9.4-12.1) Seconds INR Sodium 138 (136-145) mEq/L Potassium 4.6 (3.5-5.1) mEq/L Chloride 100 (98-107) mEq/L Carbon Dioxide 30 H (23-29) mEq/L BUN 45 H (8-23) mg/dL Creatinine 6.66 H (0.60-1.20) mg/dL Est GFR ( Amer) 7 L (> 60) Est GFR (Non-Af Amer) 6 L (> 60) BUN/Creatinine Ratio 7 (6-26) Glucose 91 (70-105) mg/dL Calculated Osmolality 297 (280-300) Calcium 8.4 L (8.6-10.3) mg/dL Specimen Rejected Attestation Statement - Attestation Attestation: I examined this patient and my medical decision-making was reviewed with the Resident Physician. I agree with the documented findings, disposition and treatment plan as described except to the extent set forth below. [id number] time provided Patient presents with erythema and swelling to her nose. I'm concerned about cellulitis and or possibly an underlying venous thrombotic process. Patient will likely require admission upon completion of the workup
[2018-01-01 11:42] LABS: Basophils % 0.5 %; Eosinophils % 0.3 %; Hematocrit 29.6 % (35.3-44.9); Hemoglobin 9.6 g/dL (11.5-15.4); Immature Granulocytes % 0.6 % (0-4); Lymphocytes % 16.2 %; Mean Corpuscular HGB Conc 32.4 g/dL (31.6-35.5); Mean Corpuscular Hemoglobin 33.8 pg (28.0-33.3); Mean Corpuscular Volume 104.2 fL (83.0-100.0); Mean Platelet Volume 10.9 fL (9.4-12.4); Monocytes # 0.6 K/mcL (0.0-1.3); Monocytes % 8.9 %; Neutrophils # 4.7 K/mcL (1.6-8.9); Platelet Count 105 K/mcL (140-400); Red Blood Count 2.84 M/mcL (3.82-4.97); Red Cell Distribution Width 15.1 % (11.5-14.5); Segmented Neutrophils % 73.5 %
[2018-01-01 11:53] LABS: Prothrombin Time 10.9 Seconds (9.4-12.1)
--- NOTE | 2018-01-01 12:12 | Emergency Department Note ---
Disposition Clinical Impression: Infection of nose Disposition: Admitted As Inpatient Condition: Fair Time of Disposition: 15:58 General Adult HPI - General Chief complaint: ED General Medical Stated complaint: face swelling Time Seen by Provider: 01/01/18 11:07 Source: patient, family Mode of arrival: ambulatory Limitations: no limitations Nursing Notes Reviewed: Yes Vital Signs Reviewed: Yes - History of Present Illness HPI Narrative: 77-year-old female presents to the emergency department with a painful and swollen nose. She says it has increased over the last 4 days. Said is very painful there is occasional epistaxis. There is normal for she is on any blood thinners. Patient did have a fall approximately one month ago. She did not have any other symptoms. She had no recent falls. Or any any neurological changes or any changes in mental status. Patient has no other complaints including no fevers, chills, nausea, vomiting, headache, neck pain, back pain, chest pain, shortness of breath, abdominal pain, pain or tingling going down the arms or legs, changes in balance or pain with urination. Pain Scale: 8 - Related Data Home Medications Medication Instructions Recorded Confirmed Albuterol Sulfate [Ventolin Hfa] 2 puff IH Q4H PRN 10/12/16 01/01/18 Allopurinol [Zyloprim] 100 mg PO DAILY 10/12/16 01/01/18 Aspirin 81 mg PO DAILY 10/12/16 01/01/18 Atorvastatin [Lipitor] 40 mg PO HS 10/12/16 01/01/18 Budesonide/Formoterol 160/4.5 2 puff IH BIDR 10/12/16 01/01/18 [Symbicort 160/4.5] Cholecalciferol (Vitamin D3) 2,000 unit PO DAILY 10/12/16 01/01/18 [Vitamin D3] Furosemide [Lasix] 20 mg PO QPM 10/12/16 01/01/18 Furosemide [Lasix] 40 mg PO QAM 10/12/16 01/01/18 Levothyroxine [Synthroid] 25 mcg PO DAILY 01/14/17 01/01/18 Metoprolol XL (24 HR) Succ [Toprol 50 mg PO DAILY 01/14/17 01/01/18 Xl] Multivitamin [Multi-Day Vitamins] 1 tab PO DAILY 01/14/17 01/01/18 Acetylcysteine 600 mg PO TID 03/11/17 01/01/18 [G-Ebzwjf-d-Cysteine] HYDROcodone/Acet 5/325 mg [[place] 1 tab PO TID PRN 03/11/17 01/01/18 5-325 mg] Loratadine [Claritin] 10 mg PO DAILY 03/11/17 01/01/18 Sevelamer [Renvela] 4,000 mg PO TIDWM 03/11/17 01/01/18 Tizanidine HCl 4 mg PO TID PRN 03/11/17 01/01/18 Pregabalin [Lyrica] 50 mg PO BID 11/22/17 01/01/18 B Complex W-C No.20/Folic Acid 1 mg PO DAILY 01/01/18 01/01/18 [Virt-Caps Softgel] amLODIPine [Norvasc] 5 mg PO BID 01/01/18 01/01/18 Previous Rx's Medication Instructions Recorded Losartan [Cozaar] 50 mg PO BID #60 tablet 03/14/17 hydrALAZINE [HydrALAZINE] 50 mg PO BID #120 tablet 12/03/17 Allergies Allergy/AdvReac Type Severity Reaction Status Date / Time codeine Allergy Rash Verified 11/25/17 14:42 gabapentin Allergy Itching Verified 11/25/17 14:42 Review of Systems: 10 point review of systems done and negative unless otherwise stated in the history of present illness. All systems ED: reviewed and negative except as stated. Review of Systems: As Per HPI Past Medical History - Past Medical History Attestation: Yes The following information was validated with the patient. Source: patient Medical history: Reports: asthma, COPD, DVT, dialysis, hyperlipidemia, hypertension, osteoporosis, renal disease, other Surgical history: Reports: other Psychiatric history: Reports: no psych history - Social History Smoking Status: Former smoker Smokeless Tobacco Status: No Alcohol use: Reports: none Drug use: Reports: none Physical Exam - General Limitations: no limitations General appearance: alert, in no apparent distress - Head Head exam: atraumatic, normocephalic, normal inspection - Eye Eye exam: Present: normal appearance, PERRL, EOMI - Expanded ENT Exam External ear exam: Present: normal external inspection Nose exam: other (Swelling and erythema. Dried blood in the external nares. No current epistaxis.) Mouth exam: Present: normal external inspection Teeth exam: Present: normal inspection Throat exam: Present: normal inspection - Neck Neck exam: Present: normal inspection, full ROM, trachea midline - Chest Chest inspection: Present: normal inspection, symmetric chest wall rise - Respiratory Respiratory exam: Present: normal lung sounds bilaterally - Cardiovascular Cardiovascular exam: Present: regular rate, normal rhythm, normal heart sounds - Abdominal Exam Abdominal exam: Present: soft, Non-Tender. Absent: tenderness, distention, guarding, rebound, rigidity - Extremities Exam Extremities exam: Present: normal inspection, full ROM. Absent: tenderness, pedal edema - Expanded Lower Extremity Exam Neurovascular/Tendon exam: Present: normal capillary refill. Absent: pulse deficit, motor deficit, sensory deficit, tendon deficit - Back Exam Back exam: Present: normal inspection, full ROM. Absent: tenderness - Neurological Exam Neurological exam: Present: alert, oriented X3 - Skin Skin exam: Present: warm, dry, intact, normal color Course Course Narrative: 77-year-old female presents to the em for swelling of her nose. There is worry about possible central venous thrombosis. We will get CT scan with venous contrast of the head. We will also do basic labs including PT/INR, CBC, BMP. Vital Signs Temperature 98.2 F 01/01/18 11:03 Pulse Rate 79 01/01/18 11:03 Respiratory Rate 18 01/01/18 11:03 Blood Pressure 181/78 01/01/18 11:03 O2 Sat by Pulse Oximetry 98 01/01/18 11:03 Temperature 98.8 F 01/01/18 15:35 Pulse Rate 68 01/01/18 15:35 Respiratory Rate 17 01/01/18 15:35 Blood Pressure 182/79 01/01/18 15:35 O2 Sat by Pulse Oximetry 97 01/01/18 15:35 Oxygen Delivery Oxygen Delivery Room Air Medical Decision Making - [place] Narrative Medical decision making narrative: 77-year-old female presented with a swollen nose is very painful. Did do CT which showed no acute abnormalities as no signs of venous sinus thrombosis. Due to that being the danger area and most likely this being a staph infection we felt admission to the hospital for IV antibiotics was necessary. We are instructed patient on Unasyn and vancomycin. Patient is a dialysis patient so this also helped as she did get contrast during the CT. I did contact her artificial stone setter's Dr. Corea to let him know of the patient's admission to the hospital and medications and contrast and we gave him. He was okay with this plan. I spoke to the hospitalist Dr. Shaw who agreed to admit the patient to their service. Patient is stable at this time. Face CT 01/01/18 11:17 IMPRESSION: No acute abnormality of the face. No discrete venous thrombosis is evident at the cavernous sinus level. D/ / Carl Alcantara / Carl Alcantara Interpreting Provider: Carl Alcantara - Lab Data Result diagrams: 01/01/18 11:29 01/01/18 12:57 Lab Results 01/01/18 01/01/18 01/01/18 Range/Units 11:29 11:29 11:29 WBC 6.4 (4.3-11.1) K/mcL RBC 2.84 L (3.82-4.97) M/mcL Hgb 9.6 L (11.5-15.4) g/dL Hct 29.6 L (35.3-44.9) % MCV 104.2 H (83.0-100.0) fL MCH 33.8 H (28.0-33.3) pg MCHC 32.4 (31.6-35.5) g/dL RDW 15.1 H (11.5-14.5) % Plt Count 105 L (140-400) K/mcL MPV 10.9 (9.4-12.4) fL Immature Gran % 0.6 (0-4) % Seg Neutrophils % 73.5 % Lymphocytes % 16.2 % Monocytes % 8.9 % Eosinophils % 0.3 % Basophils % 0.5 % Neutrophils # 4.7 (1.6-8.9) K/mcL Lymphocytes # 1.0 (0.6-4.6) K/mcL Monocytes # 0.6 (0.0-1.3) K/mcL Eosinophils # 0.0 (0.0-0.6) K/mcL Basophils # 0.0 (0.0-0.2) K/mcL PT 10.9 (9.4-12.1) Seconds INR 1.0 Sodium (136-145) mEq/L Potassium (3.5-5.1) mEq/L Chloride (98-107) mEq/L Carbon Dioxide (23-29) mEq/L BUN (8-23) mg/dL Creatinine (0.60-1.20) mg/dL Est GFR ( Amer) (> 60) Est GFR (Non-Af Amer) (> 60) BUN/Creatinine Ratio (6-26) Glucose (70-105) mg/dL Calculated Osmolality (280-300) Calcium (8.6-10.3) mg/dL Specimen Rejected Hemolyzed 01/01/18 Range/Units 12:57 WBC (4.3-11.1) K/mcL RBC (3.82-4.97) M/mcL Hgb (11.5-15.4) g/dL Hct (35.3-44.9) % MCV (83.0-100.0) fL MCH (28.0-33.3) pg MCHC (31.6-35.5) g/dL RDW (11.5-14.5) % Plt Count (140-400) K/mcL MPV (9.4-12.4) fL Immature Gran % (0-4) % Seg Neutrophils % % Lymphocytes % % Monocytes % % Eosinophils % % Basophils % % Neutrophils # (1.6-8.9) K/mcL Lymphocytes # (0.6-4.6) K/mcL Monocytes # (0.0-1.3) K/mcL Eosinophils # (0.0-0.6) K/mcL Basophils # (0.0-0.2) K/mcL PT (9.4-12.1) Seconds INR Sodium 138 (136-145) mEq/L Potassium 4.6 (3.5-5.1) mEq/L Chloride 100 (98-107) mEq/L Carbon Dioxide 30 H (23-29) mEq/L BUN 45 H (8-23) mg/dL Creatinine 6.66 H (0.60-1.20) mg/dL Est GFR ( Amer) 7 L (> 60) Est GFR (Non-Af Amer) 6 L (> 60) BUN/Creatinine Ratio 7 (6-26) Glucose 91 (70-105) mg/dL Calculated Osmolality 297 (280-300) Calcium 8.4 L (8.6-10.3) mg/dL Specimen Rejected
[2018-01-01 13:30] LABS: Calcium 8.4 mg/dL (8.6-10.3); Potassium 4.6 mEq/L (3.5-5.1)
[2018-01-01] MEDS ORDERED: Ampicillin/Sulbactam 3,000 MG in 0.9 % Sodium Chloride Mini Bag 100 ML IVPB ONE (13:34)
[2018-01-01] MEDS ORDERED: Naloxone 0.4 MG/ML INJ IVP PRN (15:39)
[2018-01-01] MEDS ORDERED: tiZANidine 4 MG TABLET PO PRN (15:52)
[2018-01-01] MEDS ORDERED: 0.9 % Sodium Chloride 1,000 ML IVC SCH (16:15)
--- NOTE | 2018-01-01 16:17 | Internal Med History&Physical ---
<Rodrick Elizalde R - Last Filed: 01/01/18 16:47> Date of Encounter: 01/01/18 Internal Medicine - H&P: HPI History of present illness: Ms. Carmona is a 77 year old female Internal Medicine - H&P: Meds Albuterol Sulfate [Ventolin Hfa] 2 puff IH Q4H PRN 10/12/16 [History] Allopurinol [Zyloprim] 100 mg PO DAILY 10/12/16 [History] Aspirin 81 mg PO DAILY 10/12/16 [History] Atorvastatin [Lipitor] 40 mg PO HS 10/12/16 [History] Budesonide/Formoterol 160/4.5 [Symbicort 160/4.5] 2 puff IH BIDR 10/12/16 [ History] Cholecalciferol (Vitamin D3) [Vitamin D3] 2,000 unit PO DAILY 10/12/16 [History] Furosemide [Lasix] 20 mg PO QPM 10/12/16 [History] Furosemide [Lasix] 40 mg PO QAM 10/12/16 [History] Levothyroxine [Synthroid] 25 mcg PO DAILY 01/14/17 [History] Metoprolol XL (24 HR) Succ [Toprol Xl] 50 mg PO DAILY 01/14/17 [History] Multivitamin [Multi-Day Vitamins] 1 tab PO DAILY 01/14/17 [History] Acetylcysteine [J-Jlkltc-f-Cysteine] 600 mg PO TID 03/11/17 [History] HYDROcodone/Acet 5/325 mg [[place] 5-325 mg] 1 tab PO TID PRN 03/11/17 [History] Loratadine [Claritin] 10 mg PO DAILY 03/11/17 [History] Sevelamer [Renvela] 4,000 mg PO TIDWM 03/11/17 [History] Tizanidine HCl 4 mg PO TID PRN 03/11/17 [History] Losartan [Cozaar] 50 mg PO BID #60 tablet 03/14/17 [Rx] Pregabalin [Lyrica] 50 mg PO BID 11/22/17 [History] hydrALAZINE [HydrALAZINE] 50 mg PO BID #120 tablet 12/03/17 [Rx] B Complex W-C No.20/Folic Acid [Virt-Caps Softgel] 1 mg PO DAILY 01/01/18 [ History] amLODIPine [Norvasc] 5 mg PO BID 01/01/18 [History] 3 Allergy/AdvReac Type Severity Reaction Status Date / Time codeine Allergy Rash Verified 11/25/17 14:42 gabapentin Allergy Itching Verified 11/25/17 14:42 All Systems PM: A 10-system review of systems was performed and is negative for pertinent findings except as documented above in the HPI. - Constitutional Vitals: Temp Pulse Resp BP Pulse Ox 98.8 F 68 17 182/79 97 01/01/18 15:35 01/01/18 15:35 01/01/18 15:35 01/01/18 15:35 01/01/18 15:35 Internal Med - H&P Results - Labs CBC & Chem 7: 01/01/18 11:29 01/01/18 12:57 - Attending Attestation I performed an independent interview and exam of this pt. I agree with the findings, assessment and plan of Dr. Queen, internal medicine agriculture intern. I was present during his exam. Differential dx to include ceelulitis vs HSV/ shingles. No occular complaints or lesions. No obvious blistering. Favor cellultitis but for now will cover for both - Vanco and Acyclovir. Will check procaclitonin as well as HSV igG and IgM. No need for IVF, also pt is a HD pt. She is hypertnesive ad we will resume her home rx. Next HD is tomorrow. She does not appear volume overloaded. <Gera Queen - Last Filed: 01/01/18 17:21> Date of Encounter: 01/01/18 Time of Encounter: 15:30 Assessment and Plan (1) Facial swelling Current visit: Yes Status: Acute Patient presents with swelling, erythema, and pain of the face. Patient presents afebrile, with normal white blood cell count. Most likely secondary to cellulitis. Patient was started on vancomycin in the ED. ordered blood culture and Procalcitonin. differential includes shingles due to distribution pattern of pain and erythema, however not as likely due to absence of vesicular lesions. I will go ahead and order an IV G an IV M antibody Varicella lab. We will also go ahead and start the patient on acyclovir renally dosed. (2) CKD (chronic kidney disease) stage 2, GFR 60-89 ml/min Current visit: Yes Status: Acute Patient undergoes dialysis regularly. Creatinine level today is at 6.66. Her baseline level is usually around 4.5. Nephrology consult was ordered. Plan for patient to continue dialysis. Renally dose medications and avoid nephrotoxins. IV fluids not necessary since patient will be on dialysis and due to elevated blood pressure. (3) HTN (hypertension) Current visit: No Status: Chronic Blood pressure currently at 181/78. Patient's baseline blood pressure usually around 160/80. - We will resume home medications amlodipine, valsartan, and metoprolol. Qualifiers: Hypertension type: secondary to other renal disorders Qualified Code(s): I15.1 - Hypertension secondary to other renal disorders; N28.89 - Other specified disorders of kidney and ureter; N28.89 - Other specified disorders of kidney and ureter (4) DVT prophylaxis Current visit: No Status: Acute Heparin 5000 units subcutaneously every 8 hours Internal Medicine - H&P: HPI Chief complaint: Facial swelling Admitted From: Emergency Dept History of present illness: Ms. 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 She says it started 3 days ago. She rates the pain as a 4-5 out of 10 and says it is very painful to touch. She denies any fever or chills. Denies any recent facial trauma. She says that this has never happened before. 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 She admits to epistaxis of the R nostril but says she frequently gets this. When brought to the ED, there was concern for central venous thrombosis. CT of the head was ordered and revealed no acute abnormality. Her WBC was normal at 6.4 and she was afebrile. She was hypertensive with a BP of 181/78, but patient has a history of HTN with a baseline around 160/80. She was subsequently started on vancomycin. Past Med Surg Social Fam HX - Past Medical History Medical history: asthma, COPD, DVT, dialysis, hyperlipidemia, hypertension, osteoporosis, renal disease, other Psychiatric history: no psych history - Past Surgical History Surgical History: other - Social History Smoking Status: Former smoker Smokeless Tobacco Status: No Alcohol use: none Drug use: none - Family History Mother Living Status: Hx Family Cardiac Disorders: No Hx Family Respiratory Disorders: No Hx Family Cancer: Yes (Colon) Hx Family GI Disorders: No Hx Family Endocrine Disorder: Yes (Borderline DM) Hx Family Neuromuscular Disorders: No Hx Family Neurologic Disorders: No Hx Family HEENT Disorders: No Hx Family Autoimmune Disorders: No All Systems PM: A 10-system review of systems was performed and is negative for pertinent findings except as documented above in the HPI. - EENT Eyes: no blurry vision, no change in vision, no pain Nose, mouth and throat: epistaxis - Cardiovascular Cardiovascular ROS IM: no chest pain, no diaphoresis, no dyspnea, no lightheadedness, no palpitations, no syncope - Respiratory Respiratory: no cough, no dyspnea, no wheezing, no excessive phlegm production - Gastrointestinal Gastrointestinal: no abdominal pain, no diarrhea, no hematemesis, no hematochezia, no melena, no nausea, no vomiting - Neurological Neurological ROS: no dizziness, no headache(s), no numbness, no tingling - Constitutional Vitals: Temp Pulse Resp BP Pulse Ox 98.8 F 68 17 182/79 97 01/01/18 15:35 01/01/18 15:35 01/01/18 15:35 01/01/18 15:35 01/01/18 15:35 General appearance: Present: A&O X 3, no acute distress, answers questions appropriately - Head Head exam: Present: atraumatic, normocephalic - Eye Eye exam: Present: EOMI, PERRL - ENT ENT exam: Present: mucous membranes moist Additional comments: Bilateral facial swelling with erythema.No vesicular lesions noted. No active bleeding. Dried blood around the nares bilaterally. Tenderness to palpation and nose and cheeks near orbital region bilaterally. - Respiratory Respiratory exam: Present: CTAB. Absent: accessory muscle use, rales, rhonchi, wheezes - Cardiovascular Cardiovascular exam: Present: RRR, +S1, +S2, systolic murmur. Absent: bradycardia, tachycardia - GI/Abdominal GI/Abdominal exam: Present: normal bowel sounds, soft, no peritoneal signs. Absent: distended, tenderness - Extremities Exam Extremities exam: Present: pedal edema (Severe pitting b/l edema). Absent: tenderness - Skin Additional comments: Surgical lesion on right thumb with intact sutures and no signs of active bleeding pus or drainage Internal Med - H&P Results - Labs CBC & Chem 7: 01/01/18 11:29 01/01/18 12:57
[2018-01-01] MEDS: Metoprolol XL (24 HR) Succ 50 MG TAB.ER.24H PO SCH (17:14)
[2018-01-01] MEDS: Acyclovir 750 MG in D5% in Water 250 ML IVPB SCH (18:06)
[2018-01-01] MEDS: amLODIPine 5 MG TABLET PO SCH (19:34)
[2018-01-01] MEDS: Acetaminophen 325 MG TABLET PO PRN (19:58)
[2018-01-01] MEDS: *HR* Heparin 5,000 UNIT/ML VIAL SQ SCH (22:03)
[2018-01-01] MEDS: Budesonide/Formoterol 160/4.5 MDI IH SCH (22:39)
[2018-01-02] MEDS: Acetaminophen 325 MG TABLET PO PRN (04:25)
[2018-01-02] MEDS: *HR* Heparin 5,000 UNIT/ML VIAL SQ SCH ×3 (04:26→22:35)
[2018-01-02] MEDS: Acyclovir 750 MG in D5% in Water 250 ML IVPB SCH (05:13)
[2018-01-02 05:24] LABS: Basophils % 0.2 %; Eosinophils # 0.1 K/mcL (0.0-0.6); Eosinophils % 0.9 %; Hematocrit 25.7 % (35.3-44.9); Hemoglobin 8.4 g/dL (11.5-15.4); Immature Granulocytes % 0.4 % (0-4); Lymphocytes # 1.4 K/mcL (0.6-4.6); Lymphocytes % 25.1 %; Mean Corpuscular HGB Conc 32.7 g/dL (31.6-35.5); Mean Corpuscular Hemoglobin 33.5 pg (28.0-33.3); Mean Corpuscular Volume 102.4 fL (83.0-100.0); Mean Platelet Volume 10.9 fL (9.4-12.4); Monocytes # 0.5 K/mcL (0.0-1.3); Monocytes % 8.6 %; Neutrophils # 3.5 K/mcL (1.6-8.9); Nucleated Red Blood Cells 0.4 /100 WBC (0); Platelet Count 101 K/mcL (140-400); Red Blood Count 2.51 M/mcL (3.82-4.97); Red Cell Distribution Width 14.9 % (11.5-14.5); Segmented Neutrophils % 64.8 %
[2018-01-02] MEDS: Levothyroxine 25 MCG TABLET PO SCH (05:29)
[2018-01-02 05:39] LABS: Potassium 4.8 mEq/L (3.5-5.1)
[2018-01-02] MEDS: Budesonide/Formoterol 160/4.5 MDI IH SCH ×2 (07:37→22:07)
[2018-01-02] MEDS: Cholecalciferol (D-3) 1,000 UNIT TABLET PO SCH (08:32)
[2018-01-02] MEDS: Renal Vitamin 1 MG CAPSULE PO SCH (08:32)
[2018-01-02] MEDS: Multivit/Ca/Min/Fe/FA 1 TAB TABLET PO SCH (08:32)
[2018-01-02] MEDS ORDERED: *HR* HYDROcodone/Acet 5/325 mg TABLET PO PRN (09:47)
--- NOTE | 2018-01-02 10:45 | Internal Med Progress Note ---
<Gera Queen - Last Filed: 01/02/18 10:43> Date of Encounter: 01/02/18 Time of Encounter: 08:50 - Assessment and plan (1) Facial swelling Current Visit: Yes Status: Acute Assessment and plan: Likely secondary to cellulitis versus shingles. Varicella AB labs pending. Facial swelling seems to have improved since yesterday. White blood cell count normal at 5.4. Patient afebrile. - Continue vancomycin day #2 - Continue acyclovir day #2 (2) CKD (chronic kidney disease) stage 2, GFR 60-89 ml/min Current Visit: Yes Status: Acute Assessment and plan: Creatinine level increased from 6.66 up to 7.59. Nephrology consult ordered. - Patient to be dialyzed. (3) HTN (hypertension) Current Visit: No Status: Chronic Assessment and plan: Blood pressure 165/75. - Continue home meds. Qualifiers: Hypertension type: secondary to other renal disorders Qualified Code(s): I15.1 - Hypertension secondary to other renal disorders; N28.89 - Other specified disorders of kidney and ureter; N28.89 - Other specified disorders of kidney and ureter (4) DVT prophylaxis Current Visit: No Status: Acute Assessment and plan: Heparin 5000 U SQ Q8HR. - Subjective Interval history: When seen today patient says her pain level continues to be the same, stating that 3 out of 4 when she does not touch her face and a 10 out of 10 when she does. She admits to some bilateral vision blurriness for the past few days. She denies any pain in her eyes. She denies any fever, chills, nausea, vomiting , abdominal pain, diarrhea. - Constitutional Vitals: Temp Pulse Resp BP Pulse Ox 98.5 F 70 16 165/75 91 01/02/18 08:00 01/02/18 08:00 01/02/18 08:00 01/02/18 08:00 01/02/18 08:00 General appearance: Present: A&O X 3, no acute distress, answers questions appropriately - Eye Eye exam: Present: EOMI, PERRL - ENT Additional comments: Facial swelling seems to have improved since yesterday. Less erythema is also noted along the cheeks bilaterally. Her nose continues to be swollen with erythema. Patient expressed minor pain with palpation to cheeks and greater pain with palpation of nose. - Respiratory Respiratory exam: Present: CTAB. Absent: accessory muscle use, rales, rhonchi, wheezes - Cardiovascular Cardiovascular exam: Present: RRR, +S1, +S2, systolic murmur (Holosystolic murmur in the second left intercostal space). Absent: bradycardia, tachycardia - GI/Abdominal GI/Abdominal exam: Present: normal bowel sounds, soft, no peritoneal signs. Absent: distended, tenderness - Extremities Exam Extremities exam: Present: pedal edema, radial pulses palpable and symmetrical Internal Medicine: Result - Labs CBC & Chem 7: 01/02/18 05:02 01/02/18 05:02 Labs: Short CBC 01/02/18 Range/Units 05:02 WBC 5.4 (4.3-11.1) K/mcL Hgb 8.4 L (11.5-15.4) g/dL Hct 25.7 L (35.3-44.9) % Plt Count 101 L (140-400) K/mcL Neutrophils # 3.5 (1.6-8.9) K/mcL BMP 01/02/18 05:02 Sodium 135 L Potassium 4.8 Chloride 99 Carbon Dioxide 27 BUN 53 H Creatinine 7.59 H Glucose 91 Calcium 8.0 L - ABG Interpretation ABG results: PT/INR, D-dimer PT 10.9 Seconds (9.4-12.1) 01/01/18 11:29 Consult Discharge Plan - Plan Referrals: Vladimir Chaidez MD [Primary Care Provider] - <Rodrick Elizalde - Last Filed: 01/02/18 12:21> Date of Encounter: 01/02/18 - Constitutional Vitals: Temp Pulse Resp BP Pulse Ox 98.2 F 72 16 175/83 91 01/02/18 11:30 01/02/18 11:30 01/02/18 11:30 01/02/18 11:30 01/02/18 11:30 Internal Medicine: Result - Labs CBC & Chem 7: 01/02/18 05:02 01/02/18 05:02 Labs: Short CBC 01/02/18 Range/Units 05:02 WBC 5.4 (4.3-11.1) K/mcL Hgb 8.4 L (11.5-15.4) g/dL Hct 25.7 L (35.3-44.9) % Plt Count 101 L (140-400) K/mcL Neutrophils # 3.5 (1.6-8.9) K/mcL BMP 01/02/18 05:02 Sodium 135 L Potassium 4.8 Chloride 99 Carbon Dioxide 27 BUN 53 H Creatinine 7.59 H Glucose 91 Calcium 8.0 L - ABG Interpretation ABG results: PT/INR, D-dimer PT 10.9 Seconds (9.4-12.1) 01/01/18 11:29 - Attending Attestation I performed an independent interview and examine this patient. I agree with the findings, assessment, and plan of Dr. Queen, Internal medicine winter intern. Continue with current therapy. Suspect this is more likely a cellulitis than a VZV infection. Nephrology input noted and appreciated with plans for hemodialysis. All else as outlined above. We are waiting for lab studies including a pro-calcitonin level. All else as outlined above.
[2018-01-02] MEDS: Metoprolol XL (24 HR) Succ 50 MG TAB.ER.24H PO SCH (11:06)
[2018-01-02] MEDS: amLODIPine 5 MG TABLET PO SCH ×2 (11:06→19:55)
[2018-01-02] MEDS ORDERED: 0.9 % Sodium Chloride 250 ML IVC PRN (11:25)
[2018-01-02] MEDS ORDERED: 0.9 % Sodium Chloride 1,000 ML PRIME SCH (11:30)
--- NOTE | 2018-01-02 11:44 | Nephrology Consult Note ---
Date of Encounter: 01/02/18 Time of Encounter: 11:15 Assessment and Plan (1) ESRD on dialysis Current Visit: No Status: Chronic Cellulitis versus HSV/shingles. On Vanco and Acyclovir. ESRD- HD today, keeping MWF schedule. History of Present Illness - Reason for Consult end stage renal disease - History of Present Illness Ms. Carmona is a 77 year old female with ESRD who dialyzes at [place] on MWF. Other PMH-asthma, COPD, DVT, dialysis, hyperlipidemia, hypertension, osteoporosis, renal disease. Presented to ER yesterday for facial/nasal swelling and epistaxis. She is S/P biopsy right hand skin lesion. She is S/P fall one week ago. She states she did have some facial contusions at that time that are residing. WBC 6.4, today 5.4. Admitted with cellulitis vs HSV/ shingles. Started on Acyclovir and Vancomycin. CT head no acute process. At time of consult she is alert and oriented times 3. There is significant nasal swelling/erythemic. Past Med Surg Social Fam HX - Past Medical History Medical history: asthma, COPD, DVT, dialysis, hyperlipidemia, hypertension, osteoporosis, renal disease, other Psychiatric history: no psych history - Past Surgical History Surgical History: other - Social History Smoking Status: Former smoker Smokeless Tobacco Status: No Alcohol use: none Drug use: none - Family History Mother Living Status: Hx Family Cardiac Disorders: No Hx Family Respiratory Disorders: No Hx Family Cancer: Yes (Colon) Hx Family GI Disorders: No Hx Family Endocrine Disorder: Yes (Borderline DM) Hx Family Neuromuscular Disorders: No Hx Family Neurologic Disorders: No Hx Family HEENT Disorders: No Hx Family Autoimmune Disorders: No Medications and Allergies Albuterol Sulfate [Ventolin Hfa] 2 puff IH Q4H PRN 10/12/16 [History] Allopurinol [Zyloprim] 100 mg PO DAILY 10/12/16 [History] Aspirin 81 mg PO DAILY 10/12/16 [History] Atorvastatin [Lipitor] 40 mg PO HS 10/12/16 [History] Budesonide/Formoterol 160/4.5 [Symbicort 160/4.5] 2 puff IH BIDR 10/12/16 [ History] Cholecalciferol (Vitamin D3) [Vitamin D3] 2,000 unit PO DAILY 10/12/16 [History] Furosemide [Lasix] 20 mg PO QPM 10/12/16 [History] Furosemide [Lasix] 40 mg PO QAM 10/12/16 [History] Levothyroxine [Synthroid] 25 mcg PO DAILY 01/14/17 [History] Metoprolol XL (24 HR) Succ [Toprol Xl] 50 mg PO DAILY 01/14/17 [History] Multivitamin [Multi-Day Vitamins] 1 tab PO DAILY 01/14/17 [History] Acetylcysteine [K-Tgnbnu-f-Cysteine] 600 mg PO TID 03/11/17 [History] HYDROcodone/Acet 5/325 mg [[place] 5-325 mg] 1 tab PO TID PRN 03/11/17 [History] Loratadine [Claritin] 10 mg PO DAILY 03/11/17 [History] Sevelamer [Renvela] 4,000 mg PO TIDWM 03/11/17 [History] Tizanidine HCl 4 mg PO TID PRN 03/11/17 [History] Losartan [Cozaar] 50 mg PO BID #60 tablet 03/14/17 [Rx] Pregabalin [Lyrica] 50 mg PO BID 11/22/17 [History] hydrALAZINE [HydrALAZINE] 50 mg PO BID #120 tablet 12/03/17 [Rx] B Complex W-C No.20/Folic Acid [Virt-Caps Softgel] 1 mg PO DAILY 01/01/18 [ History] amLODIPine [Norvasc] 5 mg PO BID 01/01/18 [History] 3 Allergy/AdvReac Type Severity Reaction Status Date / Time codeine Allergy Rash Verified 11/25/17 14:42 gabapentin Allergy Itching Verified 11/25/17 14:42 Review of Systems All Systems: reviewed and no additional remarkable complaints except as stated Exam - Vital Signs Vital signs: Initial Vital Signs Temp Pulse Resp BP Pulse Ox 98.2 F 79 18 181/78 98 01/01/18 11:03 01/01/18 11:03 01/01/18 11:03 01/01/18 11:03 01/01/18 11:03 Vital Signs - Last 8 Hours Temp Pulse Resp BP Pulse Ox 01/02/18 11:30 98.2 F 72 16 175/83 91 01/02/18 08:00 98.5 F 70 16 165/75 91 01/02/18 07:37 16 91 01/02/18 05:27 99.0 F 68 16 154/72 91 Intake and Output 01/01/18 01/02/18 01/02/18 23:59 07:59 15:59 Intake Total 770 / 770 490 / 490 240 / 240 Output Total 0 / 0 0 / 0 Balance 770 / 770 490 / 490 240 / 240 Intake: IV Fluids 250 / 250 250 / 250 Zovirax 750 MG In Dextrose 5% 250 / 250 250 / 250 250 ML @ 250 mls/hr IVPB Q12HR [facility] Rx#:[id number] Oral 520 / 520 240 / 240 240 / 240 Output: Urine 0 / 0 0 / 0 Other: Meal Dinner Breakfast Percent of Meal Consumed 100% 90% Weight 69.218 kg Patient Weight 01/02/18 23:59 Weight 69.218 kg - General Appearance General appearance: well-developed, well-nourished, appears started age EENT: mucous membranes moist Neck: no JVD Respiratory: clear Cardiology: edema, regular rate, regular rhythm Additional Comments: 2-3+ knees down. This is her chronic when she does not wear support hose and elevate Gastrointestinal: normoactive bowel sounds, no tenderness Integumentary: warm and dry Neurologic: alert and oriented x3 Results - Lab Results 01/02/18 05:02 01/02/18 05:02 Most recent lab results Calcium 8.0 mg/dL (8.6-10.3) L 01/02/18 05:02 Consult Discharge Plan - Plan Referrals: Vladimir Chaidez MD [Primary Care Provider] -
--- NOTE | 2018-01-02 11:58 | Event Note ---
Date of Encounter: 01/02/18 Time of Encounter: 11:40 Patient was reporting visual hallucinations stating she saw the fernandez were made of leaves and moving. She also noted that she was hallucinating when she would close her eyes. A bedside neurologic exam was conducted and showed CN II-XII were grossly intact with no focal neurologic deficits. EOMI. No slurring of speech was noted. Patient was alert and oriented x 3. Visual hallucinations most likely secondary to acyclovir. Will hold acyclovir for now until Varicella AB tests come back. Will continue to monitor.
[2018-01-02] MEDS ORDERED: Acyclovir 200 MG CAPSULE PO SCH ×2 (18:00→21:00)
[2018-01-02 18:09] LABS: Hepatitis B Surface Antigen Nonreactive (Nonreactive)
[2018-01-02] MEDS ORDERED: Vancomycin 500 MG in 0.9 % Sodium Chloride Mini Bag 100 ML IVPB ONE (19:00)
[2018-01-03] MEDS: Acetaminophen 325 MG TABLET PO PRN ×2 (00:25→12:14)
[2018-01-03] MEDS: Levothyroxine 25 MCG TABLET PO SCH (06:14)
[2018-01-03] MEDS: *HR* Heparin 5,000 UNIT/ML VIAL SQ SCH ×3 (06:14→21:30)
[2018-01-03] MEDS: Budesonide/Formoterol 160/4.5 MDI IH SCH ×2 (07:33→22:34)
--- NOTE | 2018-01-03 07:54 | Nephrology Progress Note ---
Date of Encounter: 01/03/18 Time of Encounter: 07:52 - Assessment and Plan (1) ESRD on dialysis Current Visit: No Status: Chronic Patient will continue to undergo dialysis every Tuesday. She will be started on Aranesp for her anemia. (2) Anemia in chronic kidney disease (CKD) Current Visit: No Status: Chronic Qualifiers: Chronic kidney disease stage: on chronic dialysis Qualified Code(s): N18.6 - End stage renal disease; D63.1 - Anemia in chronic kidney disease; D63.1 - Anemia in chronic kidney disease; Z99.2 - Dependence on renal dialysis; Z99.2 - Dependence on renal dialysis; Z99.2 - Dependence on renal dialysis; Z99.2 - Dependence on renal dialysis (3) Infection of nose Current Visit: Yes Status: Acute Subjective Interval history: Patient seems less confused today. She did undergo dialysis yesterday. She denies any new complaints today. Objective - Vital Signs Vital signs: Vital Signs Temp Pulse Resp BP Pulse Ox 01/03/18 07:35 18 90 01/03/18 07:12 97.9 F 81 18 165/80 90 01/03/18 04:42 99.9 F H 73 18 175/72 90 01/03/18 00:11 100.2 F H 79 18 163/57 91 01/02/18 22:07 19 90 01/02/18 17:35 100.1 F H 81 18 186/78 90 01/02/18 16:30 98.0 F 20 176/101 01/02/18 16:15 180/93 01/02/18 16:00 187/90 01/02/18 15:45 181/91 01/02/18 15:30 164/82 01/02/18 15:15 166/84 01/02/18 15:00 162/80 01/02/18 14:45 164/83 01/02/18 14:30 176/88 01/02/18 14:15 171/82 01/02/18 14:00 175/83 01/02/18 13:45 150/91 01/02/18 13:30 162/86 01/02/18 13:15 97.7 F 20 167/81 01/02/18 11:30 98.2 F 72 16 175/83 91 01/02/18 08:00 98.5 F 70 16 165/75 91 Intake and Output 01/02/18 01/02/18 01/03/18 15:59 23:59 07:59 Intake Total 1080 / 1080 0 / 0 Output Total 3600 / 3600 Balance 1080 / 1080 -3600 / -3600 Intake: Oral 480 / 480 0 / 0 Intake, Rinseback and Flushes 600 / 600 Output: Total Dialysis (HD) Output 3600 / 3600 Other: Meal Lunch Percent of Meal Consumed 100% Stool Size Moderate Stool Consistency formed Stool Characteristics Normal for Patient Stool Color Brown # Bowel Movements 1 Weight 70.2 kg Blood Glucose* 117 Hemodialysis Net Fluid Removed 2997 3000 (mL) Patient Weight 01/03/18 23:59 Weight 70.2 kg - General Appearance Exam: Patient appears alert and oriented. Vital signs are stable. She does have erythema and swelling of her nose and paranasal area. Lungs clear to auscultation. Heart irregular rate and rhythm. Abdomen is benign. She does have some lower extremity swelling. - Lab 01/02/18 05:02 01/02/18 05:02 Most recent lab results Calcium 8.0 mg/dL (8.6-10.3) L 01/02/18 05:02 Consult Discharge Plan - Plan Referrals: Vladimir Chaidez MD [Primary Care Provider] -
[2018-01-03] MEDS ORDERED: Darbepoetin 100 MCG/0.5 ML SYRINGE SQ SCH (08:00)
[2018-01-03 08:14] LABS: Calcium 9.3 mg/dL (8.6-10.3); Potassium 4.5 mEq/L (3.5-5.1)
[2018-01-03 08:23] LABS: Basophils % 0.5 %; Eosinophils % 0.5 %; Hematocrit 29.9 % (35.3-44.9); Hemoglobin 9.9 g/dL (11.5-15.4); Immature Granulocytes % 0.5 % (0-4); Lymphocytes # 1.1 K/mcL (0.6-4.6); Mean Corpuscular HGB Conc 33.1 g/dL (31.6-35.5); Mean Corpuscular Hemoglobin 33.7 pg (28.0-33.3); Mean Corpuscular Volume 101.7 fL (83.0-100.0); Mean Platelet Volume 10.6 fL (9.4-12.4); Monocytes # 0.5 K/mcL (0.0-1.3); Monocytes % 8.7 %; Neutrophils # 3.9 K/mcL (1.6-8.9); Platelet Count 124 K/mcL (140-400); Red Blood Count 2.94 M/mcL (3.82-4.97); Red Cell Distribution Width 14.6 % (11.5-14.5); Segmented Neutrophils % 70.8 %
[2018-01-03] MEDS: amLODIPine 5 MG TABLET PO SCH ×2 (08:38→21:26)
[2018-01-03] MEDS: Cholecalciferol (D-3) 1,000 UNIT TABLET PO SCH (08:38)
[2018-01-03] MEDS: Renal Vitamin 1 MG CAPSULE PO SCH (08:38)
[2018-01-03] MEDS: Metoprolol XL (24 HR) Succ 50 MG TAB.ER.24H PO SCH (08:38)
[2018-01-03] MEDS: Multivit/Ca/Min/Fe/FA 1 TAB TABLET PO SCH (08:38)
[2018-01-03] MEDS ORDERED: 0.9 % Sodium Chloride 1,000 ML IVC SCH (18:00)
[2018-01-03] MEDS ORDERED: Vancomycin 500 MG in 0.9 % Sodium Chloride Mini Bag 100 ML IVPB SCH (18:00)
--- NOTE | 2018-01-03 21:56 | Internal Med Progress Note ---
Date of Encounter: 01/03/18 Time of Encounter: 21:54 - Assessment and plan (1) Facial swelling Current Visit: Yes Status: Acute Assessment and plan: Improving. Likely secondary to cellulitis versus shingles. Remains afebrile with normal WBC. Continue vancomycin day 3. Continue to hold acyclovir for now due to acute encephalopathy. (2) Cellulitis and abscess of face Current Visit: Yes Status: Acute Assessment and plan: Treatment as per above. (3) Acute encephalopathy Current Visit: Yes Status: Acute Assessment and plan: Started yesterday. Had fall this AM with no injuries. Questionable visual and auditory hallucinations. Consider sitter. CT head and CXR WNL. Labwork unchanged. Obtain UA reflex culture. Holding norco and all other sedating medications for now. Continue treatment of cellulitis as per above. Dialysis per nephrology. Repeat labwork in AM. Consider neuro/psych consult if no improvement. (4) CKD (chronic kidney disease) stage 2, GFR 60-89 ml/min Current Visit: Yes Status: Chronic (5) HTN (hypertension) Current Visit: Yes Status: Chronic Assessment and plan: Some elevated BP recordings. Continue home medications. Add hydralazine PRN. Qualifiers: Hypertension type: secondary to other renal disorders Qualified Code(s): I15.1 - Hypertension secondary to other renal disorders; N28.89 - Other specified disorders of kidney and ureter; N28.89 - Other specified disorders of kidney and ureter (6) DVT prophylaxis Current Visit: No Status: Acute Assessment and plan: Continue heparin SC. - Time Spent With Patient 25 - 35 minutes - Subjective Interval history: Patient had no acute events overnight. Nursing staff reported this morning that patient had fall; no injuries noted. She continues to have some altered mentation. Workup has been negative thus far. Acyclovir was stopped yesterday due to this. She is somewhat somnolent this afternoon. Easily arousable, but minimally conversive. She seems to have mild agitation, writhing in bed. She was more alert this morning per and nursing staff. She did get norco this afternoon. She does no voice any concerns. - Constitutional Vitals: Temp Pulse Resp BP Pulse Ox 98.7 F 78 18 178/71 92 01/03/18 21:21 01/03/18 21:21 01/03/18 21:21 01/03/18 21:21 01/03/18 21:21 General appearance: Present: A&O X 1, mild distress. Absent: cooperative, answers questions appropriately - Respiratory Respiratory exam: Present: CTAB. Absent: accessory muscle use, rales, rhonchi, wheezes Additional comments: Normal WOB - Cardiovascular Cardiovascular exam: Present: RRR, +S1, +S2. Absent: diastolic murmur, gallop, rubs, systolic murmur Additional comments: No BLE edema - GI/Abdominal GI/Abdominal exam: Present: normal bowel sounds, soft. Absent: distended, hepatomegaly, mass, splenomegaly, tenderness - Psychiatric Psychiatric exam: Present: agitated. Absent: anxious, depressed - Skin Skin exam: Present: dry, intact, warm. Absent: cyanosis Additional comments: Mild erythema and edema of face, mostly concentrated on nose. No TTP expressed. Internal Medicine: Result - Labs CBC & Chem 7: 01/03/18 07:15 01/03/18 07:15 Labs: Short CBC 01/03/18 Range/Units 07:15 WBC 5.5 (4.3-11.1) K/mcL Hgb 9.9 L D (11.5-15.4) g/dL Hct 29.9 L (35.3-44.9) % Plt Count 124 L (140-400) K/mcL Neutrophils # 3.9 (1.6-8.9) K/mcL BMP 01/03/18 07:15 Sodium 135 L Potassium 4.5 Chloride 97 L Carbon Dioxide 27 BUN 29 H Creatinine 5.21 H Glucose 86 Calcium 9.3 - ABG Interpretation ABG results: PT/INR, D-dimer PT 10.9 Seconds (9.4-12.1) 01/01/18 11:29 Consult Discharge Plan - Plan Referrals: Vladimir Chaidez MD [Primary Care Provider] -
[2018-01-04] MEDS ORDERED: *HR* LORazepam 2 MG/ML VIAL IVP ONE (00:34)
[2018-01-04] MEDS ORDERED: Ipratropium/Albuterol Neb 3 ML IH SCH (00:45)
--- NOTE | 2018-01-04 01:10 | Event Note ---
Date of Encounter: 01/04/18 Time of Encounter: 00:25 Notified by RN the patient's oxygen saturation dropped to 80%, and was on 5 L nasal cannula. Came to assess the patient and she is very restless, she is not wanting to keep on the nasal cannula or oxymask. She does have some coarse breath sounds bilaterally and mild wheeze. Will give duoneb. ECG obtained shows NSR with first degree AV block, no ST changes, but does have some baseline variability. Will obtain troponin, d-dimer, and CXR. After 0.5mg of ativan the patient calmed down and was placed on oxymask. The O2 increased to 88-89%. Will continue to monitor and adjust treatment as needed based on labs and imaging. Chest x-ray is concerning for multifocal pneumonia versus pulmonary edema. D- dimer elevated at 5201. Trop 0.17. CTA shows no evidence of PE, but does mention pulmonary edema versus infection. Patient has been on high flow oxygen 7 -8L and has been maintaining oxygen saturation in the 90s. She is also now been resting comfortably in bed. Patient is afebrile, no leukocytosis. With concerning images, will add cefepime at this time.
[2018-01-04 01:16] LABS: Basophils % 0.3 %; Eosinophils % 0.3 %; Hematocrit 27.6 % (35.3-44.9); Hemoglobin 9.3 g/dL (11.5-15.4); Immature Granulocytes % 0.5 % (0-4); Lymphocytes # 0.8 K/mcL (0.6-4.6); Lymphocytes % 11.6 %; Mean Corpuscular HGB Conc 33.7 g/dL (31.6-35.5); Mean Corpuscular Hemoglobin 34.3 pg (28.0-33.3); Mean Corpuscular Volume 101.8 fL (83.0-100.0); Mean Platelet Volume 10.5 fL (9.4-12.4); Monocytes # 0.5 K/mcL (0.0-1.3); Monocytes % 7.1 %; Neutrophils # 5.2 K/mcL (1.6-8.9); Platelet Count 142 K/mcL (140-400); Red Blood Count 2.71 M/mcL (3.82-4.97); Red Cell Distribution Width 14.3 % (11.5-14.5); Segmented Neutrophils % 80.2 %
[2018-01-04 01:35] LABS: Albumin 3.2 g/dL (3.5-5.7); Albumin/Globulin Ratio 1.4 (1.1-2.2); Bilirubin,Total 0.7 mg/dL (0.3-1.0); Calcium 8.7 mg/dL (8.6-10.3); Globulin 2.3 g/dL (2.4-3.5); Potassium 4.8 mEq/L (3.5-5.1); Total Protein 5.5 g/dL (6.4-8.9)
[2018-01-04] MEDS: *HR* Heparin 5,000 UNIT/ML VIAL SQ SCH ×3 (06:11→22:15)
[2018-01-04] MEDS: Levothyroxine 25 MCG TABLET PO SCH (06:11)
--- NOTE | 2018-01-04 06:30 | Electrocardiograph Report ---
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
[2018-01-04] MEDS ORDERED: Furosemide 40 MG/4 ML VIAL IVP STA (07:32)
[2018-01-04] MEDS: Budesonide/Formoterol 160/4.5 MDI IH SCH ×2 (07:44→22:48)
[2018-01-04] MEDS: amLODIPine 5 MG TABLET PO SCH ×2 (07:45→22:15)
[2018-01-04] MEDS: Cholecalciferol (D-3) 1,000 UNIT TABLET PO SCH (07:45)
[2018-01-04] MEDS: Renal Vitamin 1 MG CAPSULE PO SCH (07:46)
[2018-01-04] MEDS: Multivit/Ca/Min/Fe/FA 1 TAB TABLET PO SCH (07:46)
[2018-01-04] MEDS: Metoprolol XL (24 HR) Succ 50 MG TAB.ER.24H PO SCH (07:46)
[2018-01-04] MEDS ORDERED: Cefepime HCl 1,000 MG in Water for inj. (sterile) 20 ML 10 ML IVP SCH (08:00)
[2018-01-04] MEDS ORDERED: 0.9 % Sodium Chloride 250 ML IVC PRN (08:22)
--- NOTE | 2018-01-04 08:22 | Nephrology Progress Note ---
Date of Encounter: 01/04/18 Time of Encounter: 08:20 - Assessment and Plan (1) ESRD on dialysis Current Visit: No Status: Chronic The patient will undergo dialysis today with volume removal as tolerated. Hopefully this will help with her pulmonary status. (2) Anemia in chronic kidney disease (CKD) Current Visit: No Status: Chronic Qualifiers: Chronic kidney disease stage: on chronic dialysis Qualified Code(s): N18.6 - End stage renal disease; D63.1 - Anemia in chronic kidney disease; D63.1 - Anemia in chronic kidney disease; Z99.2 - Dependence on renal dialysis; Z99.2 - Dependence on renal dialysis; Z99.2 - Dependence on renal dialysis; Z99.2 - Dependence on renal dialysis (3) Infection of nose Current Visit: Yes Status: Acute Subjective Interval history: The patient had issues with hypoxia overnight. She has been placed on a higher dose of supplemental oxygen. Currently she denies any shortness of breath. She is scheduled for her usual dialysis today. Objective - Vital Signs Vital signs: Vital Signs Temp Pulse Resp BP Pulse Ox 01/04/18 08:13 93 01/04/18 07:59 98.3 F 83 22 167/74 93 01/04/18 07:49 18 94 01/04/18 06:55 98.7 F 82 16 182/84 90 01/04/18 03:52 98.4 F 78 16 148/66 94 01/04/18 01:25 16 89 01/04/18 01:00 98.6 F 77 18 176/88 90 01/03/18 21:21 98.7 F 78 18 178/71 92 01/03/18 16:42 99.2 F 81 20 178/71 92 01/03/18 12:14 172/87 01/03/18 12:08 99.2 F 82 20 172/87 95 01/03/18 10:17 79 16 174/68 01/03/18 09:03 184/82 01/03/18 08:27 97.5 F L 72 20 196/88 93 Intake and Output 01/03/18 01/04/18 01/04/18 23:59 07:59 15:59 Intake Total 0 / 0 Balance 0 / 0 Intake: Oral 0 / 0 Other: Stool Size Small Stool Consistency soft formed Stool Characteristics Normal for Patient Stool Color Brown # Urine Diapers 1 # Bowel Movements 1 # Bowel Movement Diapers 1 Weight 84.2 kg Patient Weight 01/04/18 23:59 Weight 84.2 kg - General Appearance Exam: Patient appears alert. She is in no acute distress. Lungs coarse breath sounds. Heart regular rate and rhythm. Abdomen is benign. She has less lower extremity swelling compared to her usual baseline. There is a functioning AV access in the left upper extremity. The facial erythema is fading. - Lab 01/04/18 01:02 01/04/18 01:02 Most recent lab results Calcium 8.7 mg/dL (8.6-10.3) 01/04/18 01:02 Consult Discharge Plan - Plan Referrals: Vladimir Chaidez MD [Primary Care Provider] -
[2018-01-04 08:41] LABS: Bilirubin,Urine Negative (Negative); Blood,Urine Negative (Negative); Clarity,Urine Clear (Clear); Color,Urine Yellow (Yellow); Glucose,Urine (UA) 100 mg/dL (Normal); Ketones,Urine Negative (Negative); Leukocyte Esterase,Urine Negative (Negative); Nitrite,Urine Negative (Negative); PH,Urine 7.5 pH Units (5.0-8.0); Protein,Urine >=300 mg/dL (Neg-Trace); Specific Gravity,Urine 1.018 (1.010-1.025); Urobilinogen,Urine Normal (Normal)
[2018-01-04 08:44] LABS: Bacteria,Urine None Seen per hpf (None-Few); Hyaline Casts,Urine None Seen per lpf (None-Few); RBC,Urine 0-3 per hpf (0-3); Squamous Epithelial Cell,Urine Moderate per lpf (None-Few)
[2018-01-04] MEDS ORDERED: Cefepime HCl 1,000 MG in Water for inj. (sterile) 20 ML 10 ML IVP ONE (09:43)
[2018-01-04] MEDS ORDERED: Vancomycin 500 MG in 0.9 % Sodium Chloride Mini Bag 100 ML IVPB ONE (11:32)
[2018-01-04] MEDS: Acetaminophen 325 MG TABLET PO PRN ×2 (12:11→17:44)
[2018-01-04] MEDS ORDERED: Ipratropium/Albuterol Neb 3 ML IH PRN (13:55)
[2018-01-04] MEDS: Furosemide 40 MG/4 ML VIAL IVP SCH (16:36)
[2018-01-04] MEDS: Cefepime HCl 1,000 MG in Water for inj. (sterile) 20 ML 10 ML IVP SCH (16:36)
--- NOTE | 2018-01-04 18:14 | Electrocardiograph Report ---
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
--- NOTE | 2018-01-04 19:40 | Internal Med Progress Note ---
Date of Encounter: 01/04/18 Time of Encounter: 10:07 - Assessment and plan (1) Facial swelling Current Visit: Yes Status: Acute Assessment and plan: Improving. Likely secondary to cellulitis versus shingles. Remains afebrile with normal WBC. Continue vancomycin day 4. Continue to hold acyclovir for now due to acute encephalopathy. (2) Cellulitis and abscess of face Current Visit: Yes Status: Acute Assessment and plan: Treatment as per above. (3) Acute encephalopathy Current Visit: Yes Status: Acute Assessment and plan: Worsening last night, but improved this AM. Continue sitter. UA unremarkable. Added IV lasix and duonebs for pulmonary edema and respiratory decompensation. Dialysis scheduled for today will also help with excess fluid. Added cefepime to cover for possible pneumonia. Will consult cardiology for elevated troponin; appreciate input. Holding norco and all other sedating medications for now. Continue treatment of cellulitis as per above. Dialysis per nephrology. Repeat labwork in AM. Consider neuro/psych consult if no improvement. (4) CKD (chronic kidney disease) stage 2, GFR 60-89 ml/min Current Visit: Yes Status: Chronic Assessment and plan: Nephrology consulted; appreciate input. Continue dialysis per schedule. (5) HTN (hypertension) Current Visit: Yes Status: Chronic Assessment and plan: Some elevated BP recordings. Continue home medications. Continue hydralazine PRN. Qualifiers: Hypertension type: secondary to other renal disorders Qualified Code(s): I15.1 - Hypertension secondary to other renal disorders; N28.89 - Other specified disorders of kidney and ureter; N28.89 - Other specified disorders of kidney and ureter (6) Elevated troponin Current Visit: No Status: Acute Assessment and plan: Cardiology consulted; appreciate input. Will follow recommendations. (7) HCAP (healthcare-associated pneumonia) Current Visit: No Status: Suspected Assessment and plan: Possible pneumonia a possibility per CTA chest. Added cefepime today. Continue supplemental O2 and duonebs PRN. (8) Pulmonary edema Current Visit: Yes Status: Acute Assessment and plan: IV lasix BID started as per above. Dialysis scheduled for today should also help with this. Will monitor UOP. Check BMP in AM. Qualifiers: Chronicity: acute Qualified Code(s): J81.0 - Acute pulmonary edema (9) DVT prophylaxis Current Visit: No Status: Acute Assessment and plan: Continue heparin SC. - Subjective Interval history: Patient had respiratory decompensation last night. She was restless and did not keep on NC. She was given ativan and placed on high flow NC. EKG showed NSR with first degree AV block, no ST changes, but with some baseline variability. D-dimer was elevated, but CTA chest negative for PE. CTA chest did show some edema vs infiltrate. Troponin was elevated. CXR unremarkable. Cefepime was added to cover pneumonia. Nursing staff reports that she is doing better today. She is alert and minimally conversive, but appropriate, with me. She continues to have some altered mentation per and daughter, who are in room. She does not show any agitation presently. She does no voice any complaints or concerns. - Constitutional Vitals: Temp Pulse Resp BP Pulse Ox 98.6 F 90 20 160/74 95 01/04/18 19:12 01/04/18 19:12 01/04/18 19:12 01/04/18 19:12 01/04/18 19:12 General appearance: Present: cooperative, A&O X 1, no acute distress, answers questions appropriately - Respiratory Respiratory exam: Present: CTAB. Absent: accessory muscle use, rales, rhonchi, wheezes Additional comments: Mildly labored WOB - Cardiovascular Cardiovascular exam: Present: RRR, +S1, +S2. Absent: diastolic murmur, gallop, rubs, systolic murmur Additional comments: No BLE edema - GI/Abdominal GI/Abdominal exam: Present: normal bowel sounds, soft. Absent: distended, hepatomegaly, mass, splenomegaly, tenderness - Psychiatric Psychiatric exam: Present: normal affect, normal mood. Absent: anxious, depressed - Skin Skin exam: Present: dry, intact, warm. Absent: cyanosis Additional comments: Mild erythema and edema of face, mostly concentrated on nose. No TTP expressed. Internal Medicine: Result - Labs CBC & Chem 7: 01/04/18 01:02 01/04/18 01:02 Labs: Short CBC 01/04/18 Range/Units 01:02 WBC 6.5 (4.3-11.1) K/mcL Hgb 9.3 L (11.5-15.4) g/dL Hct 27.6 L (35.3-44.9) % Plt Count 142 (140-400) K/mcL Neutrophils # 5.2 (1.6-8.9) K/mcL BMP 01/04/18 01:02 Sodium 136 Potassium 4.8 Chloride 101 Carbon Dioxide 26 BUN 36 H Creatinine 5.72 H Glucose 106 H Calcium 8.7 Cardiac Enzymes 01/04/18 01/04/18 Range/Units 01:02 13:15 Troponin I 0.17 H* 0.21 H* (< 0.04) ng/mL Liver Function 01/04/18 Range/Units 01:02 Total Bilirubin 0.7 (0.3-1.0) mg/dL AST 29 (13-39) Units/L ALT 32 (7-52) Units/L Alkaline Phosphatase 144 H (34-104) Units/L Albumin 3.2 L (3.5-5.7) g/dL Urine 01/04/18 Range/Units 08:10 Urine Color Yellow (Yellow) Urine Clarity Clear (Clear) Urine pH 7.5 (5.0-8.0) pH Units Ur Specific [place] 1.018 (1.010-1.025) Urine Protein >=300 H (Neg-Trace) mg/dL Urine Glucose (UA) 100 H (Normal) mg/dL - ABG Interpretation ABG results: PT/INR, D-dimer PT 10.9 Seconds (9.4-12.1) 01/01/18 11:29 D-Dimer 5201 ng/mLFEU (0-500) H 01/04/18 01:02 - Impressions Impressions Chest X-Ray 01/04/18 00:35 IMPRESSION: Findings favored represent multifocal pneumonia and small bilateral pleural effusions, though there may be a component of pulmonary edema as well. D/ / Shant Velasquez MD / Shant Velasquez MD Interpreting Provider: Shant Velasquez MD Chest CTA 01/04/18 01:52 IMPRESSION: No evidence of pulmonary embolism. Findings likely represent moderate pulmonary edema. Superimposed infection remains a possibility. Diffuse anasarca. Gas within the right upper extremity soft tissues is likely due to recent IV placement. Correlate with exam. D/ / Shant Velasquez MD / Shant Velasquez MD Interpreting Provider: Shant Velasquez MD Consult Discharge Plan - Plan Referrals: Vladimir Chaidez MD [Primary Care Provider] -
[2018-01-05] MEDS: Acetaminophen 325 MG TABLET PO PRN ×2 (02:40→17:31)
[2018-01-05] MEDS ORDERED: *HR* LORazepam 2 MG/ML VIAL IVP ONE ×2 (03:24→21:59)
[2018-01-05 04:15] LABS: ABG Base Excess 8 mEq/L (-2 to 3); ABG HCO3 30 mEq/L (21-27); ABG Oxygen Saturation 97 % (95-98); ABG PCO2 31 mmHg (35-45); ABG PH 7.59 pH Units (7.32-7.45); ABG PO2 78 mmHg (85-104); ABG TCO2 31 mEq/L (20-26)
[2018-01-05 04:28] LABS: Calcium 9.2 mg/dL (8.6-10.3); Magnesium 2.2 mg/dL (1.6-2.6); Potassium 4.3 mEq/L (3.5-5.1)
[2018-01-05 04:50] LABS: Basophils % 0.7 %; Eosinophils % 0.9 %; Hematocrit 25.1 % (35.3-44.9); Hemoglobin 8.4 g/dL (11.5-15.4); Immature Granulocytes % 1.2 % (0-4); Lymphocytes # 1.1 K/mcL (0.6-4.6); Lymphocytes % 25.1 %; Mean Corpuscular HGB Conc 33.5 g/dL (31.6-35.5); Mean Corpuscular Hemoglobin 33.7 pg (28.0-33.3); Mean Corpuscular Volume 100.8 fL (83.0-100.0); Mean Platelet Volume 10.5 fL (9.4-12.4); Monocytes # 0.5 K/mcL (0.0-1.3); Monocytes % 10.9 %; Neutrophils # 2.6 K/mcL (1.6-8.9); Platelet Count 153 K/mcL (140-400); Red Blood Count 2.49 M/mcL (3.82-4.97); Red Cell Distribution Width 14.5 % (11.5-14.5); Segmented Neutrophils % 61.2 %
--- NOTE | 2018-01-05 05:30 | Event Note ---
Date of Encounter: 01/05/18 Time of Encounter: 03:15 Notified by RN the patient was complaining of chest pain. The daughter was at bedside and reported to me that the patient had clearly pointed out that she was chest pain. Upon my assessment she denies having chest pain, but does not just to shortness of breath. Pulse ox was remaining in the mid 90s on 11 L O2 nasal canula. Lung sounds are improved compared to last night. EKG obtained showed no acute changes compared to previous EKG. The patient did appear anxious, and was given Ativan 0.5 mg again tonight. After that she was able to calm down. Pulse ox remained in mid 90's. Labs show troponin 0.20, previous 0.21. ABG shows pH 7.59, CO2 31, O2 78, and HCO3 30. This is likely related to pulmonary edema and she may benefit from another round of dialysis, so that we can decrease the O2 supplementation. RN was able to titrate O2 down to 6-7L with maintaining O2 at 93%, and will continue to titrate down as able.
--- NOTE | 2018-01-05 08:54 | Nephrology Progress Note ---
Date of Encounter: 01/05/18 Time of Encounter: 08:40 - Assessment and Plan (1) ESRD on dialysis Current Visit: No Status: Chronic No HD today, keeping MWF schedule. Subjective Interval history: Sitter at bedside, states attempting to pull out IV lock. Patient moving about in bed,restless, holding head. Denies headache. Able to states correctly who I am. Nasal swelling improving. Objective - Vital Signs Vital signs: Vital Signs Temp Pulse Resp BP Pulse Ox 01/05/18 07:30 98.2 F 87 152/77 93 01/05/18 04:28 98.5 F 98 20 159/71 85 01/05/18 03:23 98.6 F 85 20 168/73 93 01/05/18 02:25 98.3 F 84 20 172/62 92 01/04/18 22:48 19 96 01/04/18 19:12 98.6 F 90 20 160/74 95 01/04/18 16:19 98.7 F 86 180/81 94 01/04/18 16:10 97.8 F 18 182/87 01/04/18 15:30 187/88 01/04/18 15:15 173/83 01/04/18 15:00 189/89 01/04/18 14:45 174/74 01/04/18 14:30 150/70 01/04/18 14:15 186/83 01/04/18 14:00 174/74 01/04/18 13:45 186/74 01/04/18 13:30 185/106 01/04/18 13:15 184/84 01/04/18 13:00 191/85 01/04/18 12:45 171/55 01/04/18 12:30 97.2 F L 20 189/94 01/04/18 11:55 99.1 F 80 20 150/89 88 01/04/18 09:44 98.7 F 78 20 173/90 91 Intake and Output 01/04/18 01/05/18 01/05/18 23:59 07:59 15:59 Intake Total Output Total 3900 / 3900 Balance -3890 / -3890 Intake: IV Fluids Maxipime 1,000 MG In Water for inj. (sterile) 10 ML @ 150 mls/ hr IVP Q24H HUSSEIN Rx#:[id number] Oral 0 / 0 Output: Urine 300 / 300 Total Dialysis (HD) Output 3600 / 3600 Other: # Urine Diapers 1 Hemodialysis Net Fluid Removed 3000 (mL) - General Appearance General appearance: Present: well-developed, well-nourished, appears started age EENT: Present: mucous membranes moist Neck: Present: no JVD Respiratory: Present: clear Cardiology: Present: edema, regular rate, regular rhythm Additional Comments: mild pedal/ankle Gastrointestinal: Present: normoactive bowel sounds, no tenderness Integumentary: Present: warm and dry - Lab 01/05/18 03:50 01/05/18 03:50 Most recent lab results ABG pH 7.59 pH Units (7.32-7.45) H 01/05/18 04:08 ABG pCO2 31 mmHg (35-45) L 01/05/18 04:08 ABG pO2 78 mmHg (85-104) L 01/05/18 04:08 ABG HCO3 30 mEq/L (21-27) H 01/05/18 04:08 ABG O2 Saturation 97 % (95-98) 01/05/18 04:08 Calcium 9.2 mg/dL (8.6-10.3) 01/05/18 03:50 Magnesium 2.2 mg/dL (1.6-2.6) 01/05/18 03:50 Consult Discharge Plan - Plan Referrals: Vladimir Chaidez MD [Primary Care Provider] -
[2018-01-05] MEDS: Multivit/Ca/Min/Fe/FA 1 TAB TABLET PO SCH (09:04)
[2018-01-05] MEDS: Cholecalciferol (D-3) 1,000 UNIT TABLET PO SCH (09:04)
[2018-01-05] MEDS: Furosemide 40 MG/4 ML VIAL IVP SCH ×2 (09:04→17:25)
[2018-01-05] MEDS: Renal Vitamin 1 MG CAPSULE PO SCH (09:04)
[2018-01-05] MEDS: amLODIPine 5 MG TABLET PO SCH ×2 (09:05→21:11)
[2018-01-05] MEDS: Levothyroxine 25 MCG TABLET PO SCH (09:05)
[2018-01-05] MEDS: *HR* Heparin 5,000 UNIT/ML VIAL SQ SCH ×3 (09:05→21:11)
[2018-01-05] MEDS: Metoprolol XL (24 HR) Succ 50 MG TAB.ER.24H PO SCH (09:05)
--- NOTE | 2018-01-05 10:01 | Cardiology Consult Note ---
Addendum entered and electronically signed by Gail Carolina CNP 01/05/18 11: 26: Patient has also had nosebleeds--continue to monitor closely after starting ASA 81 mg daily. Order placed to humidify oxygen. Original Note: <Gail Carolina - Last Filed: 01/05/18 11:21> Date of Encounter: 01/05/18 Time of Encounter: 09:00 Assessment and Plan (1) Elevated troponin Current Visit: Yes Status: Acute Troponin 0.17, 0.21, 0.20 of unclear significance, suspect may be demand ischemia in the setting of hypoxia (SPO2 80's), HCAP, and encephalopathy however unable to r/o ACS. Patient reports episode of chest pain yesterday (pain free now), however unable to describe pain or any other details. No prior hx of CAD. Obtain ECG now. TTE 11/27/17 demonstrated preserved LVEF, 60% mild cLVH, mild LVDD, normal RV, mild AR, normal wall motion. Will start ASA--monitor H/H closely. Continue betablocker and statin. Patient is unable to follow commands and anemia (H/H 8.4,25.1) and positive occult stool; not an ideal [facility] candidate. Recommend medical management for now. Repeat limited echocardiogram. Will continue to follow. (2) Acute respiratory distress Current Visit: Yes Status: Acute Continues to require supplemental oxygen. Mgmt per primary service. (3) ESRD on dialysis Current Visit: Yes Status: Chronic ESRD on HD. Volume mgmt per Nephrology. (4) PAF (paroxysmal atrial fibrillation) Current Visit: Yes Status: Acute Hx of PAF, noted during 11/27/17 admission. No PAF noted overnight. Was not a candidate for AC d/t falls, anemia, and GI bleed with positive occult stool. Will start Asa-81 today and closely monitor H/H. Discussion w patient/family: The assessment and plan as outlined above was discussed with the patient and/or family members who expressed understanding and agreement. All questions were answered. Thank you for involving us in the care of your patient. Please call with any questions. The patient will be discussed and reviewed with Dr. Garcia; changes to be made accordingly. History of Present Illness Consult date: 01/05/18 Requesting physician: Navin Sullivan Consult reason: Elevated troponin Chief complaint: chest pain History of present illness: Ms. Carmona is a 77 year old female with PMHx significant for ESRD on HD, DVT , HTN, HLD, and PAF who presented to the ED with reported facial cellulitis. Of note, patient is a poor historian and is unable to tell me why she was admitted. Per review, patient reported fell, went to the ED for evaluation and Head CT was negative. She presented a few days later and was found to have facial cellulitis and was started on IV antibiotics. Upon review, multiple recent admissions for respiratory insufficiency with mucous plugging/hypoxia and was also found to have positive occult stool. Events during hospitalization reviewed, episodes of hypoxia noted (CTA negative for PE). Also with episodes of AMS and hallucinations. Prior CV testing: TTE 11/27/17: LVEF 60%, mild cLVH, mild LVDD, normal RV, mild AR, normal wall motion Past Med Surg Social Fam HX - Past Medical History Attestation: Yes The following information was validated with the patient. Source: unable to obtain, old records reviewed Medical history: asthma, atrial fibrillation, COPD, DVT, dialysis, hyperlipidemia, hypertension, osteoporosis, renal disease Psychiatric history: no psych history - Past Surgical History Surgical History: other - Social History Smoking Status: Former smoker Smokeless Tobacco Status: No Alcohol use: none Drug use: none - Family History Mother Living Status: Hx Family Cardiac Disorders: No Hx Family Respiratory Disorders: No Hx Family Cancer: Yes (Colon) Hx Family GI Disorders: No Hx Family Endocrine Disorder: Yes (Borderline DM) Hx Family Neuromuscular Disorders: No Hx Family Neurologic Disorders: No Hx Family HEENT Disorders: No Hx Family Autoimmune Disorders: No Medications and Allergies Albuterol Sulfate [Ventolin Hfa] 2 puff IH Q4H PRN 10/12/16 [History] Allopurinol [Zyloprim] 100 mg PO DAILY 10/12/16 [History] Aspirin 81 mg PO DAILY 10/12/16 [History] Atorvastatin [Lipitor] 40 mg PO HS 10/12/16 [History] Budesonide/Formoterol 160/4.5 [Symbicort 160/4.5] 2 puff IH BIDR 10/12/16 [ History] Cholecalciferol (Vitamin D3) [Vitamin D3] 2,000 unit PO DAILY 10/12/16 [History] Furosemide [Lasix] 20 mg PO QPM 10/12/16 [History] Furosemide [Lasix] 40 mg PO QAM 10/12/16 [History] Levothyroxine [Synthroid] 25 mcg PO DAILY 01/14/17 [History] Metoprolol XL (24 HR) Succ [Toprol Xl] 50 mg PO DAILY 01/14/17 [History] Multivitamin [Multi-Day Vitamins] 1 tab PO DAILY 01/14/17 [History] Acetylcysteine [L-Agrpgx-g-Cysteine] 600 mg PO TID 03/11/17 [History] HYDROcodone/Acet 5/325 mg [Thompson 5-325 mg] 1 tab PO TID PRN 03/11/17 [History] Loratadine [Claritin] 10 mg PO DAILY 03/11/17 [History] Sevelamer [Renvela] 4,000 mg PO TIDWM 03/11/17 [History] Tizanidine HCl 4 mg PO TID PRN 03/11/17 [History] Losartan [Cozaar] 50 mg PO BID #60 tablet 03/14/17 [Rx] Pregabalin [Lyrica] 50 mg PO BID 11/22/17 [History] hydrALAZINE [HydrALAZINE] 50 mg PO BID #120 tablet 12/03/17 [Rx] B Complex W-C No.20/Folic Acid [Virt-Caps Softgel] 1 mg PO DAILY 01/01/18 [ History] amLODIPine [Norvasc] 5 mg PO BID 01/01/18 [History] 3 Allergy/AdvReac Type Severity Reaction Status Date / Time codeine Allergy Rash Verified 11/25/17 14:42 gabapentin Allergy Itching Verified 11/25/17 14:42 All Systems Review: The remainder of the systems were reviewed and are negative - Cardiovascular Cardiovascular: as per HPI Physical Examination Vital Signs, Last 4 Hours Temp Pulse BP Pulse Ox 01/05/18 09:39 93 01/05/18 07:30 98.2 F 87 152/77 93 General: Conversant (alert and oriented x3; forgetful. Conversational dyspnea) HEENT: Other (mild bruising around nose) Cardiac: Reg Rate and Rhythm, Normal S1 and S2 Lungs: Other (Decreased) Neuro: Alert and responsive Abdomen: Soft Skin: No rashes noted on visualized skin Musculoskeletal: No Chest Wall Tenderness Extremities: Other (mild BLE edema, non-pitting) Results 01/05/18 03:50 01/05/18 03:50 Lab Results 01/04/18 01/05/18 01/05/18 13:15 03:50 03:50 WBC 4.3 Hgb 8.4 L Hct 25.1 L Plt Count 153 Sodium Potassium Chloride Carbon Dioxide BUN Creatinine Glucose Calcium Magnesium Troponin I 0.21 H* 0.20 H* 01/05/18 03:50 WBC Hgb Hct Plt Count Sodium 139 Potassium 4.3 Chloride 101 Carbon Dioxide 28 BUN 22 Creatinine 4.06 H Glucose 82 Calcium 9.2 Magnesium 2.2 Troponin I Active Medications Acetaminophen (Tylenol) 650 mg PO Q6HR PRN PRN Reason: Pain/Fever Stop: 07/03/18 19:43 Last Admin: 01/05/18 02:40 Dose: 650 mg Albuterol/Ipratropium (Duoneb) 3 ml IH [id number] PRN PRN Reason: Shortness Of Breath/Wheezing Stop: 07/06/18 13:56 Amlodipine Besylate (Norvasc) 5 mg PO BID HUSSEIN PRN Reason: Protocol Stop: 07/03/18 21:01 Last Admin: 01/05/18 09:05 Dose: 5 mg Atorvastatin Calcium (Lipitor) 40 mg PO HS HUSSEIN Stop: 07/03/18 21:01 Last Admin: 01/04/18 22:15 Dose: 40 mg Budesonide/Formoterol Fumarate (Symbicort) 2 puff IH BIDR HUSSEIN PRN Reason: Protocol Stop: 07/03/18 22:01 Last Admin: 01/04/18 22:48 Dose: 2 puff Darbepoetin Aleksey (Aranesp) 100 mcg SQ QWEEK HUSSEIN Stop: 07/05/18 08:01 Last Admin: 01/03/18 12:14 Dose: 100 mcg Furosemide (Lasix) 40 mg IVP BID[facility]URETIC [facility] [place] Stop: 07/06/18 17:01 Last Admin: 01/05/18 09:04 Dose: 40 mg Heparin Sodium (Porcine) (Heparin) 5,000 unit SQ Q8HCO HUSSEIN Stop: 07/03/18 22:01 Last Admin: 01/05/18 09:05 Dose: 5,000 unit Hydralazine HCl (Hydralazine) 10 mg IVP Q6HR PRN PRN Reason: Hypertension Stop: 07/05/18 17:59 Last Admin: 01/05/18 02:38 Dose: 10 mg Sodium Chloride (0.9 % Sodium Chloride) 1,000 mls @ 0 mls/hr PRIME .Q0M HUSSEIN PRN Reason: As Directed Stop: 07/04/18 11:31 Last Admin: 01/03/18 18:50 Dose: 75 mls/hr Sodium Chloride (0.9 % Sodium Chloride) 250 mls @ 937.5 mls/hr IVC .Q16M PRN PRN Reason: Hypotension Stop: 07/06/18 08:23 Cefepime HCl 1,000 mg/ Sterile (Water) 10 mls @ 150 mls/hr IVP Q24H HUSSEIN Stop: 07/06/18 18:01 Last Infusion: 01/04/18 19:00 Dose: Infused Levothyroxine Sodium (Synthroid) 37.5 mcg PO 0630 HUSSEIN Stop: 07/07/18 08:14 Last Admin: 01/05/18 09:05 Dose: 37.5 mcg Losartan Potassium (Cozaar) 50 mg PO BID HUSSEIN PRN Reason: Protocol Stop: 07/03/18 21:01 Last Admin: 01/05/18 09:05 Dose: 50 mg Metoprolol Succinate (Toprol Xl) 50 mg PO DAILY HUSSEIN Stop: 07/03/18 16:01 Last Admin: 01/05/18 09:05 Dose: 50 mg Multivitamins/Calcium (Thera M Plus) 1 tab PO DAILY HUSSEIN Stop: 07/04/18 09:01 Last Admin: 01/05/18 09:04 Dose: 1 tab Naloxone HCl (Narcan) 0.4 mg IVP Q2MIN PRN PRN Reason: SEE COMMENTS Stop: 07/03/18 15:40 Sevelamer HCl (Renvela) 4,000 mg PO TIDWM HUSSEIN Stop: 07/03/18 17:01 Last Admin: 01/05/18 09:04 Dose: 4,000 mg Tizanidine HCl (Zanaflex) 4 mg PO TID PRN PRN Reason: Muscle Spasm Stop: 07/03/18 15:53 Last Admin: 01/04/18 19:00 Dose: 4 mg Vancomycin HCl (Vancocin) 1 each IVPB DAILY PRN PRN Reason: Placeholder Stop: 07/04/18 09:01 Vitamin B Complex/Vit C/Folic Acid (Renal Caps Softgel) 1 mg PO DAILY HUSSEIN Stop: 07/04/18 09:01 Last Admin: 01/05/18 09:04 Dose: 1 mg Vitamin D (Vitamin D) 1,000 unit PO DAILY HUSSEIN Stop: 07/04/18 09:01 Last Admin: 01/05/18 09:04 Dose: 1,[address] 01/01/18 11:17 IMPRESSION: No acute abnormality of the face. No discrete venous thrombosis is evident at the cavernous sinus level. D/ / Carl Alcantara / Carl Alcantara Interpreting Provider: Carl Alcantara Head CT 01/02/18 17:15 IMPRESSION: No acute intracranial process identified. D/ / Popeye Hopkins MD / Popeye Hopkins MD Interpreting Provider: Popeye Hopkins MD Chest X-Ray 01/04/18 00:35 IMPRESSION: Findings favored represent multifocal pneumonia and small bilateral pleural effusions, though there may be a component of pulmonary edema as well. D/ / Shant Velasquez MD / Shant Velasquez MD Chest CTA 01/04/18 01:52 IMPRESSION: No evidence of pulmonary embolism. Findings likely represent moderate pulmonary edema. Superimposed infection remains a possibility. Diffuse anasarca. Gas within the right upper extremity soft tissues is likely due to recent IV placement. Correlate with exam. D/ / Shant Velasquez MD / Shant Velasquez MD - Imaging and Cardiology Echo: report reviewed Other Results: 12 hour tele: avg HR=83. No PAF noted. - EKG Interpretation EKG results cardiology: personally reviewed Consult Discharge Plan - Plan Referrals: Vladimir Chaidez MD [Primary Care Provider] - <Ellie Garcia - Last Filed: 01/05/18 16:28> Date of Encounter: 01/05/18 - Attending Attestation I examined this patient and my medical decision-making was reviewed with the [employer]. I agree with the documented findings, disposition and treatment plan as described. Ms. Carmona initially presented with facial swelling and has been treated for cellulitis. During her course of stay, apparently she developed an episode of chest pain yesterday in the setting of hypoxia. We have been asked to evaluate the patient for elevated troponin. At the bedside, the patient is a poor historian. Per medical records, she's had episodes of altered mental status and hallucinations. Head CT was negative for acute event. At this time, etiology of troponin elevation may be secondary to hypoxia. Patient also being treated for HCAP. Recommend checking an echo, repeating an EKG. Given patient's mental status and chronic anemia with + stool occult she would unlikely be a good candidate for invasive procedures. Recommend conservative management at this time. Of note, patient also has a history of paroxysmal atrial fibrillation discovered on an admission in November 2017. PAF was not present overnight. She is not a candidate for anticoagulation due to falls, anemia and occult positive stool. Recommend low-dose aspirin at this time and close monitoring of H&H. Assessment and Plan Discussion w patient/family: The assessment and plan as outlined above was discussed with the patient and/or family members who expressed understanding and agreement. All questions were answered. Thank you for involving us in the care of your patient. Please call with any questions. History of Present Illness History of present illness: Ms. Carmona is a 77 year old female All Systems Review: The remainder of the systems were reviewed and are negative Physical Examination Vital Signs, Last 4 Hours Temp Pulse Resp BP Pulse Ox 01/05/18 16:14 21 93 01/05/18 16:00 97.7 F 85 21 177/62 93 01/05/18 15:20 99.0 F 82 22 175/64 94 01/05/18 13:48 20 94 Results 01/05/18 03:50 01/05/18 03:50 Lab Results 01/05/18 01/05/18 01/05/18 03:50 03:50 03:50 WBC 4.3 Hgb 8.4 L Hct 25.1 L Plt Count 153 Sodium 139 Potassium 4.3 Chloride 101 Carbon Dioxide 28 BUN 22 Creatinine 4.06 H Glucose 82 Calcium 9.2 Magnesium 2.2 Troponin I 0.20 H* 01/05/18 10:00 WBC Hgb Hct Plt Count Sodium Potassium Chloride Carbon Dioxide BUN Creatinine Glucose Calcium Magnesium Troponin I 0.17 H*
[2018-01-05] MEDS: Budesonide/Formoterol 160/4.5 MDI IH SCH ×2 (11:13→22:21)
[2018-01-05] MEDS: Aspirin 81 MG TAB.CHEW PO SCH (11:40)
[2018-01-05] MEDS ORDERED: Albuterol 2.5 MG/3 ML NEBULIZER IH PRN (14:51)
[2018-01-05] MEDS: Ipratropium/Albuterol Neb 3 ML IH SCH ×3 (16:14→22:21)
[2018-01-05] MEDS: Cefepime HCl 1,000 MG in Water for inj. (sterile) 20 ML 10 ML IVP SCH (17:24)
--- NOTE | 2018-01-05 17:41 | Internal Med Progress Note ---
Date of Encounter: 01/05/18 Time of Encounter: 17:39 - Assessment and plan (1) Facial swelling Current Visit: Yes Status: Acute Assessment and plan: Nearly resolved. Likely secondary to cellulitis versus shingles. Remains afebrile with normal WBC. Continue vancomycin day 5. Continue to hold acyclovir for now due to acute encephalopathy and improvement on antibiotic alone. (2) Cellulitis and abscess of face Current Visit: Yes Status: Acute Assessment and plan: Treatment as per above. (3) Acute encephalopathy Current Visit: Yes Status: Acute Assessment and plan: Greatly improved. Can discontinue sitter. Continue IV lasix and duonebs for pulmonary edema and respiratory decompensation, which now looks to be improved. We will wean supplemental O2 as tolerated. Will continue dialysis per schedule, which will also help with excess fluid. Continue cefepime to cover for possible pneumonia; she recently had a long hospitalization for this. Cardiology consulted for elevated troponin; appreciate input. Holding norco and all other sedating medications for now. Continue treatment of cellulitis as per above. Dialysis per nephrology. Repeat labwork in AM. (4) CKD (chronic kidney disease) stage 2, GFR 60-89 ml/min Current Visit: Yes Status: Chronic Assessment and plan: Nephrology consulted; appreciate input. Continue dialysis per schedule. (5) HTN (hypertension) Current Visit: Yes Status: Chronic Assessment and plan: Some mildly elevated BP recordings. Continue home medications. Continue hydralazine PRN. Qualifiers: Hypertension type: secondary to other renal disorders Qualified Code(s): I15.1 - Hypertension secondary to other renal disorders; N28.89 - Other specified disorders of kidney and ureter; N28.89 - Other specified disorders of kidney and ureter (6) Elevated troponin Current Visit: Yes Status: Acute Assessment and plan: Cardiology consulted; appreciate input. Will follow recommendations. (7) HCAP (healthcare-associated pneumonia) Current Visit: No Status: Suspected Assessment and plan: Possible pneumonia per CTA chest. Continue cefepime; will discontinue if continued improvement with diuresis. Continue supplemental O2. Schedule duonebs Q6H and add albuterol nebs Q4H PRN. (8) Pulmonary edema Current Visit: Yes Status: Acute Assessment and plan: Continue IV lasix BID as per above; will cut back with continued improvement. Continue dialysis as scheduled. Continue supplemental O2 and wean as tolerated. Scheduled duonebs and added albuterol nebs PRN as per above. Check BMP in AM. Qualifiers: Chronicity: acute Qualified Code(s): J81.0 - Acute pulmonary edema (9) DVT prophylaxis Current Visit: No Status: Acute - Time Spent With Patient less than 15 minutes - Subjective Interval history: Patient had no acute events overnight. She looks to be doing much better this AM. She is alert and oriented x 3 now, and she converses appropriately. Daughter is in the room today and states that she agrees that patient is doing much better. Not quite back to baseline. She seems to be breathing less heavily. She is still on 5 L NC, but have not tried to wean today. She is in good spirits. She denies chest pain, SOB, fever, or chills. She does not voice any complaints or concerns at this time. - Constitutional Vitals: Temp Pulse Resp BP Pulse Ox 97.7 F 85 21 177/62 93 01/05/18 16:00 01/05/18 16:00 01/05/18 16:14 01/05/18 16:00 01/05/18 16:14 General appearance: Present: cooperative, A&O X 3, pleasant, no acute distress, answers questions appropriately - Respiratory Respiratory exam: Present: CTAB. Absent: accessory muscle use, rales, rhonchi, wheezes Additional comments: Mildly labored WOB - Cardiovascular Cardiovascular exam: Present: RRR, +S1, +S2. Absent: diastolic murmur, gallop, rubs, systolic murmur Additional comments: No BLE edema - GI/Abdominal GI/Abdominal exam: Present: normal bowel sounds, soft. Absent: distended, hepatomegaly, mass, splenomegaly, tenderness - Psychiatric Psychiatric exam: Present: normal affect, normal mood. Absent: anxious, depressed - Skin Skin exam: Present: dry, intact, warm. Absent: cyanosis Additional comments: Mild erythema and edema of face, mostly concentrated on nose, nearly resolved now. No TTP expressed. Internal Medicine: Result - Labs CBC & Chem 7: 01/05/18 03:50 01/05/18 03:50 Labs: Short CBC 01/05/18 Range/Units 03:50 WBC 4.3 (4.3-11.1) K/mcL Hgb 8.4 L (11.5-15.4) g/dL Hct 25.1 L (35.3-44.9) % Plt Count 153 (140-400) K/mcL Neutrophils # 2.6 (1.6-8.9) K/mcL BMP 01/05/18 03:50 Sodium 139 Potassium 4.3 Chloride 101 Carbon Dioxide 28 BUN 22 Creatinine 4.06 H Glucose 82 Calcium 9.2 Cardiac Enzymes 01/05/18 01/05/18 01/05/18 Range/Units 03:50 10:00 16:00 Troponin I 0.20 H* 0.17 H* 0.16 H* (< 0.04) ng/mL - ABG Interpretation ABG results: ABG ABG pH 7.59 pH Units (7.32-7.45) H 01/05/18 04:08 ABG pCO2 31 mmHg (35-45) L 01/05/18 04:08 ABG pO2 78 mmHg (85-104) L 01/05/18 04:08 ABG O2 Saturation 97 % (95-98) 01/05/18 04:08 PT/INR, D-dimer PT 10.9 Seconds (9.4-12.1) 01/01/18 11:29 D-Dimer 5201 ng/mLFEU (0-500) H 01/04/18 01:02 - VTE Documentation of Mechanical Device: Intermittent pneumatic compression device Consult Discharge Plan - Plan Referrals: Vladimir Chaidez MD [Primary Care Provider] -
[2018-01-06] MEDS: Ipratropium/Albuterol Neb 3 ML IH SCH ×4 (03:32→21:41)
[2018-01-06 04:19] LABS: Basophils % 0.6 %; Eosinophils % 0.6 %; Hemoglobin 8.5 g/dL (11.5-15.4); Immature Granulocytes % 1.5 % (0-4); Lymphocytes # 1.1 K/mcL (0.6-4.6); Lymphocytes % 20.1 %; Mean Corpuscular HGB Conc 32.7 g/dL (31.6-35.5); Mean Corpuscular Hemoglobin 33.7 pg (28.0-33.3); Mean Corpuscular Volume 103.2 fL (83.0-100.0); Mean Platelet Volume 10.2 fL (9.4-12.4); Monocytes # 0.5 K/mcL (0.0-1.3); Neutrophils # 3.6 K/mcL (1.6-8.9); Platelet Count 178 K/mcL (140-400); Red Blood Count 2.52 M/mcL (3.82-4.97); Red Cell Distribution Width 14.7 % (11.5-14.5); Segmented Neutrophils % 68.2 %
[2018-01-06 04:39] LABS: Calcium 9.6 mg/dL (8.6-10.3); Potassium 4.4 mEq/L (3.5-5.1)
[2018-01-06] MEDS ORDERED: MOM Conc 10 ML UD.LIQ PO PRN (04:47)
[2018-01-06 04:57] LABS: Triiodothyronine (T3) Free 1.83 pg/mL (2.50-3.90)
[2018-01-06 05:02] LABS: Triiodothyronine (T3) Total 0.59 ng/mL (0.87-1.78)
[2018-01-06] MEDS: *HR* Heparin 5,000 UNIT/ML VIAL SQ SCH ×3 (05:26→21:06)
[2018-01-06] MEDS: Levothyroxine 25 MCG TABLET PO SCH (05:27)
[2018-01-06] MEDS ORDERED: 0.9 % Sodium Chloride 250 ML IVC PRN (07:50)
[2018-01-06] MEDS: amLODIPine 5 MG TABLET PO SCH ×2 (07:58→21:06)
[2018-01-06] MEDS: Furosemide 40 MG/4 ML VIAL IVP SCH ×2 (07:58→17:27)
[2018-01-06] MEDS: Renal Vitamin 1 MG CAPSULE PO SCH (07:58)
[2018-01-06] MEDS: Multivit/Ca/Min/Fe/FA 1 TAB TABLET PO SCH (07:59)
[2018-01-06] MEDS: Aspirin 81 MG TAB.CHEW PO SCH (07:59)
[2018-01-06] MEDS: Metoprolol XL (24 HR) Succ 50 MG TAB.ER.24H PO SCH (07:59)
[2018-01-06] MEDS: Cholecalciferol (D-3) 1,000 UNIT TABLET PO SCH (07:59)
[2018-01-06] MEDS ORDERED: 0.9 % Sodium Chloride 1,000 ML PRIME SCH (08:00)
[2018-01-06] MEDS: Budesonide/Formoterol 160/4.5 MDI IH SCH ×2 (09:15→21:41)
[2018-01-06] MEDS ORDERED: Aminoglycoside Consult 1 EACH MC ONE (09:31)
--- NOTE | 2018-01-06 10:30 | Nephrology Progress Note ---
Date of Encounter: 01/06/18 Time of Encounter: 10:15 - Assessment and Plan (1) ESRD on dialysis Current Visit: Yes Status: Chronic HD today, keeping MWF schedule. Orders given. Subjective Interval history: Laying quietly, states feeling better. Does not appear anxious. Moist rolling cough. Objective - Vital Signs Vital signs: Vital Signs Temp Pulse Resp BP Pulse Ox 01/06/18 07:55 95 01/06/18 07:40 98.5 F 66 18 170/74 95 01/06/18 04:03 97.4 F L 84 18 143/72 87 01/06/18 03:33 22 90 01/06/18 01:06 20 92 01/06/18 00:06 98.3 F 86 18 135/55 94 01/05/18 22:21 17 93 01/05/18 19:24 98.8 F 84 18 161/64 95 01/05/18 16:14 21 93 01/05/18 16:00 97.7 F 85 21 177/62 93 01/05/18 15:20 99.0 F 82 22 175/64 94 01/05/18 13:48 20 94 01/05/18 11:21 98.7 F 84 20 188/71 92 01/05/18 11:14 20 93 Intake and Output 01/05/18 01/06/18 01/06/18 23:59 07:59 15:59 Intake Total 150 / 150 100 / 100 Output Total 0 / 0 0 / 0 Balance 150 / 150 100 / 100 Intake: Oral 150 / 150 100 / 100 Output: Urine 0 / 0 0 / 0 Other: Stool Size Moderate Stool Consistency formed Stool Characteristics Normal for Patient Stool Color Brown Weight 69.2 kg Patient Weight 01/06/18 23:59 Weight 69.2 kg - General Appearance General appearance: Present: well-developed, well-nourished, appears started age EENT: Present: mucous membranes moist Neck: Present: no JVD Respiratory: Present: rhonchi Cardiology: Present: edema, regular rate, regular rhythm Additional Comments: mild-1+ Gastrointestinal: Present: normoactive bowel sounds, no tenderness Integumentary: Present: warm and dry Neurologic: Present: alert and oriented x3 - Lab 01/06/18 04:00 01/06/18 04:00 Most recent lab results ABG pH 7.59 pH Units (7.32-7.45) H 01/05/18 04:08 ABG pCO2 31 mmHg (35-45) L 01/05/18 04:08 ABG pO2 78 mmHg (85-104) L 01/05/18 04:08 ABG HCO3 30 mEq/L (21-27) H 01/05/18 04:08 ABG O2 Saturation 97 % (95-98) 01/05/18 04:08 Calcium 9.6 mg/dL (8.6-10.3) 01/06/18 04:00 Magnesium 2.2 mg/dL (1.6-2.6) 01/05/18 03:50 - VTE Documentation of Mechanical Device: Intermittent pneumatic compression device Consult Discharge Plan - Plan Referrals: Vladimir Chaidez MD [Primary Care Provider] -
--- NOTE | 2018-01-06 12:47 | Event Note ---
Date of Encounter: 01/06/18 Time of Encounter: 12:46 - Cardiology Event Note Limited TTE resulted--EF preserved, normal wall motion. Cardiology signing off. Reconsult PRN.
[2018-01-06] MEDS ORDERED: 0.9 % Sodium Chloride 1,000 ML ONE (14:05)
[2018-01-06] MEDS: Cefepime HCl 1,000 MG in Water for inj. (sterile) 20 ML 10 ML IVP SCH (17:26)
[2018-01-06] MEDS: Acetaminophen 325 MG TABLET PO PRN (17:56)
[2018-01-06] MEDS ORDERED: Vancomycin 500 MG in 0.9 % Sodium Chloride Mini Bag 100 ML IVPB ONE (18:00)
--- NOTE | 2018-01-06 19:28 | Internal Med Progress Note ---
Date of Encounter: 01/06/18 Time of Encounter: 19:26 - Assessment and plan (1) Facial swelling Current Visit: Yes Status: Acute Assessment and plan: Nearly resolved. Likely secondary to cellulitis versus shingles. Remains afebrile with normal WBC. Continue vancomycin day 6 (discontinue tomorrow?). Continue to hold acyclovir since improvement on antibiotic alone. (2) Cellulitis and abscess of face Current Visit: Yes Status: Acute Assessment and plan: Treatment as per above. (3) Acute encephalopathy Current Visit: Yes Status: Acute Assessment and plan: Nearly back to baseline mentation. Continue IV lasix and duonebs for pulmonary edema and respiratory decompensation, which now looks to be improved. Continue to wean supplemental O2 as tolerated. Will continue dialysis per schedule, which will also help with excess fluid. Continue cefepime to cover for possible pneumonia; she recently had a long hospitalization for this. Cardiology consulted for elevated troponin; appreciate input. Holding norco and all other sedating medications for now. Continue treatment of cellulitis as per above. Dialysis per nephrology. Repeat labwork in AM. (4) CKD (chronic kidney disease) stage 2, GFR 60-89 ml/min Current Visit: Yes Status: Chronic Assessment and plan: Nephrology consulted; appreciate input. Continue dialysis per schedule. (5) HTN (hypertension) Current Visit: Yes Status: Chronic Assessment and plan: Some mildly elevated BP recordings. Continue home medications. Continue hydralazine PRN. Qualifiers: Hypertension type: secondary to other renal disorders Qualified Code(s): I15.1 - Hypertension secondary to other renal disorders; N28.89 - Other specified disorders of kidney and ureter; N28.89 - Other specified disorders of kidney and ureter (6) Elevated troponin Current Visit: Yes Status: Acute Assessment and plan: Cardiology consulted; appreciate input. Will follow recommendations. (7) HCAP (healthcare-associated pneumonia) Current Visit: No Status: Suspected Assessment and plan: Possible pneumonia per CTA chest. Continue cefepime; will discontinue if continued improvement with diuresis. Continue supplemental O2. Schedule duonebs Q6H and add albuterol nebs Q4H PRN. (8) Pulmonary edema Current Visit: Yes Status: Acute Assessment and plan: Continue IV lasix BID as per above; will cut back with continued improvement. Continue dialysis as scheduled. Continue supplemental O2 and wean as tolerated. Scheduled duonebs and added albuterol nebs PRN as per above. Check BMP in AM. Qualifiers: Chronicity: acute Qualified Code(s): J81.0 - Acute pulmonary edema (9) DVT prophylaxis Current Visit: No Status: Acute Assessment and plan: Continue heparin SC. - Time Spent With Patient less than 15 minutes - Subjective Interval history: Patient had no acute events overnight. She continues to improve this AM. She is alert and oriented x 3 again today, and she continues to converse appropriately. She states that she is still not yet back to her normal self. No family in room today. Respirations are less labored. She denies chest pain , SOB, fever, or chills. She does not voice any complaints or concerns at this time. - Constitutional Vitals: Temp Pulse Resp BP Pulse Ox 97.9 F 81 18 172/72 93 01/06/18 17:10 01/06/18 17:07 01/06/18 17:10 01/06/18 18:00 01/06/18 17:07 General appearance: Present: cooperative, A&O X 3, pleasant, no acute distress, answers questions appropriately - Respiratory Respiratory exam: Present: CTAB. Absent: accessory muscle use, rales, rhonchi, wheezes Additional comments: Mildly labored WOB - Cardiovascular Cardiovascular exam: Present: RRR, +S1, +S2. Absent: diastolic murmur, gallop, rubs, systolic murmur Additional comments: No BLE edema - GI/Abdominal GI/Abdominal exam: Present: normal bowel sounds, soft. Absent: distended, hepatomegaly, mass, splenomegaly, tenderness - Psychiatric Psychiatric exam: Present: normal affect, normal mood. Absent: anxious, depressed - Skin Skin exam: Present: dry, intact, warm. Absent: cyanosis, rash Internal Medicine: Result - Labs CBC & Chem 7: 01/06/18 04:00 01/06/18 04:00 Labs: Short CBC 01/06/18 Range/Units 04:00 WBC 5.3 (4.3-11.1) K/mcL Hgb 8.5 L (11.5-15.4) g/dL Hct 26.0 L (35.3-44.9) % Plt Count 178 (140-400) K/mcL Neutrophils # 3.6 (1.6-8.9) K/mcL BMP 01/06/18 04:00 Sodium 136 Potassium 4.4 Chloride 99 Carbon Dioxide 27 BUN 32 H Creatinine 5.54 H Glucose 112 H Calcium 9.6 - ABG Interpretation ABG results: ABG ABG pH 7.59 pH Units (7.32-7.45) H 01/05/18 04:08 ABG pCO2 31 mmHg (35-45) L 01/05/18 04:08 ABG pO2 78 mmHg (85-104) L 01/05/18 04:08 ABG O2 Saturation 97 % (95-98) 01/05/18 04:08 PT/INR, D-dimer PT 10.9 Seconds (9.4-12.1) 01/01/18 11:29 D-Dimer 5201 ng/mLFEU (0-500) H 01/04/18 01:02 - Impressions Impressions Echocardiogram Limited Views 01/05/18 11:22 Impressions: LVEF 60%. Normal LV chamber size and function. Mild concentric left ventricular hypertrophy. Left Ventricular Wall Motion: Rest Echo Findings All wall segments showed normal motion. Findings: Study Quality * Technically adequate exam. ECG Findings * Normal sinus rhythm. Left Ventricle * LVEF 60%. * Normal LV chamber size and function. * Mild concentric left ventricular hypertrophy. Right Ventricle * Normal right ventricular structure and function. Aorta * Normally sized aortic root. Pericardium * The pericardium appears normal. Consult Discharge Plan - Plan Referrals: Vladimir Chaidez MD [Primary Care Provider] -
[2018-01-07] MEDS: Acetaminophen 325 MG TABLET PO PRN (03:10)
[2018-01-07] MEDS: Ipratropium/Albuterol Neb 3 ML IH SCH ×4 (03:44→22:24)
[2018-01-07] MEDS ORDERED: *HR* LORazepam 2 MG/ML VIAL IVP ONE (04:23)
[2018-01-07] MEDS: Levothyroxine 25 MCG TABLET PO SCH (05:49)
[2018-01-07] MEDS: *HR* Heparin 5,000 UNIT/ML VIAL SQ SCH ×3 (05:50→20:37)
[2018-01-07] MEDS: amLODIPine 5 MG TABLET PO SCH ×2 (07:36→20:38)
[2018-01-07] MEDS: Multivit/Ca/Min/Fe/FA 1 TAB TABLET PO SCH (07:36)
[2018-01-07] MEDS: Renal Vitamin 1 MG CAPSULE PO SCH (07:36)
[2018-01-07] MEDS: Metoprolol XL (24 HR) Succ 50 MG TAB.ER.24H PO SCH (07:37)
[2018-01-07] MEDS: Furosemide 40 MG/4 ML VIAL IVP SCH ×2 (07:37→17:22)
[2018-01-07] MEDS: Cholecalciferol (D-3) 1,000 UNIT TABLET PO SCH (07:37)
[2018-01-07] MEDS: Aspirin 81 MG TAB.CHEW PO SCH (07:37)
--- NOTE | 2018-01-07 08:37 | Nephrology Progress Note ---
Date of Encounter: 01/07/18 Time of Encounter: 08:20 - Assessment and Plan (1) ESRD on dialysis Current Visit: Yes Status: Chronic No HD today, keeping MWF schedule. Subjective Interval history: Laying quietly, states had chest pain last night. Denies CP this morning. Does not appear anxious. Moist rolling cough. Objective - Vital Signs Vital signs: Vital Signs Temp Pulse Resp BP Pulse Ox 01/07/18 07:47 94 01/07/18 07:42 98.1 F 79 17 156/62 94 01/07/18 03:44 20 94 01/07/18 03:21 98.6 F 69 18 173/74 95 01/07/18 00:30 98.9 F 81 17 168/69 96 01/06/18 20:01 99.6 F 79 17 137/68 92 01/06/18 18:00 172/72 01/06/18 17:10 97.9 F 18 181/76 01/06/18 17:07 98.1 F 81 18 93 01/06/18 16:40 160/57 01/06/18 16:25 184/83 01/06/18 16:10 178/76 01/06/18 15:55 178/71 01/06/18 15:40 171/72 01/06/18 15:25 169/72 01/06/18 15:10 172/79 01/06/18 14:55 164/81 01/06/18 14:40 176/70 01/06/18 14:25 172/78 01/06/18 14:10 174/80 01/06/18 13:55 166/80 01/06/18 13:40 98.2 F 20 101/83 01/06/18 12:04 98.1 F 82 18 175/77 93 01/06/18 09:14 16 178/71 90 Intake and Output 01/06/18 01/07/18 01/07/18 23:59 07:59 15:59 Intake Total 250 / 250 25 / 25 Output Total 4050 / 4050 0 / 0 Balance -3800 / -3800 25 / 25 Intake: IV Fluids 100 / 100 Vancocin 500 MG In 0.9 % Sodium 100 / 100 Chloride (Mini-Bag +) 100 ML @ 100 mls/hr IVPB ONCE ONE Rx#: [id number] Oral 150 / 150 25 / 25 Output: Urine 0 / 0 0 / 0 Total Dialysis (HD) Output 3600 / 3600 Catheter 450 / 450 Other: Stool Size Large Small Stool Consistency soft soft formed Stool Characteristics Normal for Patient Normal for Patient Stool Color Brown Brown # Bowel Movements 1 # Bowel Movement Diapers 1 1 Weight 66 kg Hemodialysis Net Fluid Removed 3000 (mL) Patient Weight 01/07/18 23:59 Weight 66 kg - General Appearance General appearance: Present: well-developed, well-nourished, appears started age EENT: Present: mucous membranes moist Neck: Present: no JVD Respiratory: Present: rhonchi Cardiology: Present: edema, regular rate, regular rhythm Additional Comments: mild pitting Gastrointestinal: Present: normoactive bowel sounds, no tenderness Integumentary: Present: warm and dry Neurologic: Present: alert and oriented x3 - Lab 01/06/18 04:00 01/06/18 04:00 Most recent lab results ABG pH 7.59 pH Units (7.32-7.45) H 01/05/18 04:08 ABG pCO2 31 mmHg (35-45) L 01/05/18 04:08 ABG pO2 78 mmHg (85-104) L 01/05/18 04:08 ABG HCO3 30 mEq/L (21-27) H 01/05/18 04:08 ABG O2 Saturation 97 % (95-98) 01/05/18 04:08 Calcium 9.6 mg/dL (8.6-10.3) 01/06/18 04:00 Magnesium 2.2 mg/dL (1.6-2.6) 01/05/18 03:50 - VTE Documentation of Mechanical Device: Intermittent pneumatic compression device Consult Discharge Plan - Plan Referrals: Vladimir Chaidez MD [Primary Care Provider] -
[2018-01-07] MEDS ORDERED: *HR* LORazepam 2 MG/ML VIAL IVP STA (10:02)
--- NOTE | 2018-01-07 10:32 | Internal Med Progress Note ---
Date of Encounter: 01/07/18 Time of Encounter: 10:30 - Assessment and plan (1) Facial swelling Current Visit: Yes Status: Resolved Assessment and plan: Resolved. Likely secondary to cellulitis versus shingles. Remains afebrile with normal WBC. Completed 7 days of vancomycin; stop today. Continue to hold acyclovir since resolution on antibiotic alone. (2) Cellulitis and abscess of face Current Visit: Yes Status: Resolved Assessment and plan: Resolved. Treated as per above. (3) Acute encephalopathy Current Visit: Yes Status: Acute Assessment and plan: Looks to now be back to baseline mentation. Continue IV lasix and duonebs for pulmonary edema and respiratory decompensation, which now looks to be improved. Continue to wean supplemental O2 as tolerated. Will continue dialysis per schedule, which will also help with excess fluid. Continue cefepime to cover for possible pneumonia; she recently had a long hospitalization for this. Cardiology consulted for elevated troponin; appreciate input. Holding norco and all other sedating medications for now. Some chest heaviness likely secondary to respiratory issues combined with anxiety. Will add ativan 0.5 mg Q6H PRN anxiety, as it seemed to help last night. Will add guaifenesin, claritin, and mucomyst inhaled to help with respiratory secretions/cough. Get up to chair at least 4 times daily. Dialysis per nephrology. Repeat labwork in AM. (4) CKD (chronic kidney disease) stage 2, GFR 60-89 ml/min Current Visit: Yes Status: Chronic Assessment and plan: Nephrology consulted; appreciate input. Continue dialysis per schedule. (5) HTN (hypertension) Current Visit: Yes Status: Chronic Assessment and plan: Better. Continue home medications. Continue hydralazine PRN. Qualifiers: Hypertension type: secondary to other renal disorders Qualified Code(s): I15.1 - Hypertension secondary to other renal disorders; N28.89 - Other specified disorders of kidney and ureter; N28.89 - Other specified disorders of kidney and ureter (6) Elevated troponin Current Visit: Yes Status: Acute Assessment and plan: Cardiology consulted; appreciate input. Will follow recommendations. (7) HCAP (healthcare-associated pneumonia) Current Visit: No Status: Suspected Assessment and plan: Possible pneumonia per CTA chest. Continue cefepime; will discontinue if continued improvement with diuresis. Continue supplemental O2. Continue duonebs Q6H and add albuterol nebs Q4H PRN. Added guaifenesin, claritin, and mucomyst inhaled as per above. (8) Pulmonary edema Current Visit: Yes Status: Acute Assessment and plan: Continue IV lasix BID as per above; will cut back with continued improvement. Continue dialysis as scheduled. Continue supplemental O2 and wean as tolerated. Continue duonebs and added albuterol nebs PRN as per above. Check BMP in AM. Qualifiers: Chronicity: acute Qualified Code(s): J81.0 - Acute pulmonary edema (9) DVT prophylaxis Current Visit: Yes Status: Acute Assessment and plan: Continue heparin SC. - Time Spent With Patient less than 15 minutes - Subjective Interval history: Patient had an episode of "chest heaviness" yesterday evening. Nursing staff reports improved with ativan, and she slept through the night. She state that she is still not feeling like normal self. She denies any ravi chest pain. No family in room today. Respirations are less labored; she has been weaned down to 3 L NC. She denies SOB, fever, or chills. She does not voice any other complaints or concerns at this time. - Constitutional Vitals: Temp Pulse Resp BP Pulse Ox 98.1 F 79 17 156/62 94 01/07/18 07:42 01/07/18 07:42 01/07/18 07:42 01/07/18 07:42 01/07/18 07:47 General appearance: Present: cooperative, A&O X 3, pleasant, no acute distress, answers questions appropriately - Respiratory Respiratory exam: Present: CTAB. Absent: accessory muscle use, rales, rhonchi, wheezes Additional comments: Mildly labored WOB - Cardiovascular Cardiovascular exam: Present: RRR, +S1, +S2. Absent: diastolic murmur, gallop, rubs, systolic murmur Additional comments: No BLE edema - GI/Abdominal GI/Abdominal exam: Present: normal bowel sounds, soft. Absent: distended, hepatomegaly, mass, splenomegaly, tenderness - Psychiatric Psychiatric exam: Present: normal affect, normal mood. Absent: anxious, depressed - Skin Skin exam: Present: dry, intact, warm. Absent: cyanosis, rash Additional comments: No further erythema or edema of face. Internal Medicine: Result - Labs CBC & Chem 7: 01/06/18 04:00 01/06/18 04:00 - ABG Interpretation ABG results: ABG ABG pH 7.59 pH Units (7.32-7.45) H 01/05/18 04:08 ABG pCO2 31 mmHg (35-45) L 01/05/18 04:08 ABG pO2 78 mmHg (85-104) L 01/05/18 04:08 ABG O2 Saturation 97 % (95-98) 01/05/18 04:08 PT/INR, D-dimer PT 10.9 Seconds (9.4-12.1) 01/01/18 11:29 D-Dimer 5201 ng/mLFEU (0-500) H 01/04/18 01:02 - Impressions Impressions Echocardiogram Limited Views 01/05/18 11:22 Impressions: LVEF 60%. Normal LV chamber size and function. Mild concentric left ventricular hypertrophy. Left Ventricular Wall Motion: Rest Echo Findings All wall segments showed normal motion. Findings: Study Quality * Technically adequate exam. ECG Findings * Normal sinus rhythm. Left Ventricle * LVEF 60%. * Normal LV chamber size and function. * Mild concentric left ventricular hypertrophy. Right Ventricle * Normal right ventricular structure and function. Aorta * Normally sized aortic root. Pericardium * The pericardium appears normal. - VTE Documentation of Mechanical Device: Intermittent pneumatic compression device Consult Discharge Plan - Plan Referrals: Vladimir Chaidez MD [Primary Care Provider] -
[2018-01-07] MEDS: Budesonide/Formoterol 160/4.5 MDI IH SCH ×2 (11:02→22:25)
[2018-01-07] MEDS: Acetylcysteine 10% 2 ML INHSOL IH SCH ×3 (11:03→21:04)
[2018-01-07] MEDS: Loratadine 10 MG TABLET PO SCH (11:09)
--- NOTE | 2018-01-07 15:57 | Electrocardiograph Report ---
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
--- NOTE | 2018-01-07 16:27 | Electrocardiograph Report ---
[address] [address] Test Date: 2018-01-05 Pat Name: Monisha Carmona Department: 112 Room: 2A Gender: Oncology Physician Assistant: ZULEIMA : 1940 Requested By: Hernán Oconnor Order Number: [id number] Reading MD: Ellie Garcia Measurements Intervals [place] Rate: 80 P: 69 [place]: 228 QRS: -56 QRSD: 86 T: 76 QT: 397 QTc: 434 Interpretive Statements SINUS RHYTHM WITH FIRST DEGREE AV BLOCK POSSIBLE LEFT ATRIAL ENLARGEMENT MARKED LEFT AXIS DEVIATION NONSPECIFIC ST & T-WAVE ABNORMALITY Electronically Signed On 01-07-2018 16:26:17 EDT by Ellie Garcia
[2018-01-07] MEDS: Cefepime HCl 1,000 MG in Water for inj. (sterile) 20 ML 10 ML IVP SCH (17:22)
[2018-01-07] MEDS ORDERED: *HR* HYDROcodone/Acet 5/325 mg TABLET PO PRN (17:35)
[2018-01-07] MEDS: *HR* Acetylcysteine 20% 600 MG/3 ML ORAL SYRINGE PO SCH ×2 (17:56→20:59)
[2018-01-07] MEDS: *HR* LORazepam 2 MG/ML VIAL IVP PRN (20:37)
[2018-01-07] MEDS: hydrALAZINE 25 MG TABLET PO SCH (20:38)
[2018-01-07] MEDS: Pregabalin 50 MG CAPSULE PO SCH (20:38)
[2018-01-08] MEDS: Acetylcysteine 10% 2 ML INHSOL IH SCH ×4 (04:15→22:35)
[2018-01-08] MEDS: Ipratropium/Albuterol Neb 3 ML IH SCH ×4 (04:15→22:35)
[2018-01-08] MEDS: *HR* Heparin 5,000 UNIT/ML VIAL SQ SCH ×3 (05:50→20:17)
[2018-01-08] MEDS: Levothyroxine 25 MCG TABLET PO SCH (05:50)
[2018-01-08] MEDS: Furosemide 40 MG/4 ML VIAL IVP SCH ×2 (07:42→17:11)
[2018-01-08] MEDS: Metoprolol XL (24 HR) Succ 50 MG TAB.ER.24H PO SCH (07:43)
[2018-01-08] MEDS: Pregabalin 50 MG CAPSULE PO SCH ×2 (07:43→20:16)
[2018-01-08] MEDS: Loratadine 10 MG TABLET PO SCH (07:43)
[2018-01-08] MEDS: hydrALAZINE 25 MG TABLET PO SCH ×2 (07:43→20:16)
[2018-01-08] MEDS: *HR* LORazepam 2 MG/ML VIAL IVP PRN (07:43)
[2018-01-08] MEDS: Cholecalciferol (D-3) 1,000 UNIT TABLET PO SCH (07:43)
[2018-01-08] MEDS: *HR* Acetylcysteine 20% 600 MG/3 ML ORAL SYRINGE PO SCH (07:43)
[2018-01-08] MEDS: Aspirin 81 MG TAB.CHEW PO SCH (07:44)
[2018-01-08] MEDS: Multivit/Ca/Min/Fe/FA 1 TAB TABLET PO SCH (07:44)
[2018-01-08] MEDS: amLODIPine 5 MG TABLET PO SCH ×2 (07:44→20:16)
[2018-01-08] MEDS: Renal Vitamin 1 MG CAPSULE PO SCH (07:44)
[2018-01-08] MEDS ORDERED: amLODIPine 5 MG TABLET PO SCH (07:45)
--- NOTE | 2018-01-08 08:53 | Nephrology Progress Note ---
Date of Encounter: 01/08/18 Time of Encounter: 08:40 - Assessment and Plan (1) ESRD on dialysis Current Visit: Yes Status: Chronic Tachypneic, prior history of mucous plugging/bronchiectasis/bronchoscopy. Recommend pulmonary consult. No HD today, keeping MWF schedule. Subjective Interval history: Up in chair, eating breakfast. Tachypneic. Nursing at bedside, states O2 sat decreased. Spoke with Hospitalist, presented prior history of mucous plugging/ bronchiectasis/bronchoscopy. States will evaluate patient. Objective - Vital Signs Vital signs: Vital Signs Temp Pulse Resp BP Pulse Ox 01/08/18 08:03 87 01/08/18 07:52 97.9 F 78 20 163/69 87 01/08/18 04:48 98.5 F 82 16 175/71 97 01/08/18 04:15 16 90 01/08/18 00:23 99.3 F 80 16 157/67 97 01/07/18 22:24 16 87 01/07/18 20:36 99.7 F H 78 17 174/76 95 01/07/18 16:45 98.5 F 76 20 161/61 96 01/07/18 15:06 16 94 01/07/18 11:56 98.3 F 82 18 158/68 94 01/07/18 11:03 16 99 Intake and Output 01/07/18 01/08/18 01/08/18 23:59 07:59 15:59 Intake Total 300 / 300 0 / 0 0 / 0 Output Total 0 / 0 Balance 300 / 300 0 / 0 0 / 0 Intake: Oral 300 / 300 0 / 0 0 / 0 Output: Urine 0 / 0 Other: Meal Dinner Percent of Meal Consumed 0% Weight 66.6 kg Patient Weight 01/08/18 23:59 Weight 66.6 kg - General Appearance General appearance: Present: well-developed, well-nourished, appears started age EENT: Present: mucous membranes moist Neck: Present: no JVD Respiratory: Present: rhonchi Cardiology: Present: edema, regular rate, regular rhythm Additional Comments: mild, shriveled skin Gastrointestinal: Present: normoactive bowel sounds, no tenderness Integumentary: Present: warm and dry Neurologic: Present: alert and oriented x3 - Lab 01/06/18 04:00 01/06/18 04:00 Most recent lab results ABG pH 7.59 pH Units (7.32-7.45) H 01/05/18 04:08 ABG pCO2 31 mmHg (35-45) L 01/05/18 04:08 ABG pO2 78 mmHg (85-104) L 01/05/18 04:08 ABG HCO3 30 mEq/L (21-27) H 01/05/18 04:08 ABG O2 Saturation 97 % (95-98) 01/05/18 04:08 Calcium 9.6 mg/dL (8.6-10.3) 01/06/18 04:00 Magnesium 2.2 mg/dL (1.6-2.6) 01/05/18 03:50 - VTE Documentation of Mechanical Device: Intermittent pneumatic compression device Consult Discharge Plan - Plan Referrals: Vladimir Chaidez MD [Primary Care Provider] -
--- NOTE | 2018-01-08 09:19 | Pulmonology Consult Note ---
Date of Encounter: 01/08/18 Time of Encounter: 09:15 Assessment and Plan (1) HCAP (healthcare-associated pneumonia) Current Visit: No Status: Suspected To continue cefepime and flagyl just recently completed a course of 7 day course of vancomycin . Parkinson send sputum c/s (2) Acute and chronic respiratory failure Current Visit: Yes Status: Acute Patient worsening acute respiratory failure is multifactorial fluid overload secondary due to ESRD and some diastolic dysfunction, pneumonia and COPD flare up . Since patient is respiratory distress will put on BIPAP . To obtain ABG and CXR . Qualifiers: Respiratory failure complication: hypoxia Qualified Code(s): J96.21 - Acute and chronic respiratory failure with hypoxia (3) Acute exacerbation of chronic obstructive pulmonary disease (COPD) Current Visit: No Status: Acute Patient with increased wheezes and sputum production to continue current bronchodilators , mucolytics , steroids. (4) Mucus plugging of bronchi Current Visit: No Status: Acute There is no large segmental bronchial obstruction will do conservative management . Will do incentive spirometry , flutter valve and percussor therapy . To send sputum c/s (5) ESRD on dialysis Current Visit: Yes Status: Chronic To continue the current dialysis schedule History of Present Illness Consult date: 01/08/18 Requesting physician: Navin Sullivan Reason for consult: dyspnea, cough, pneumonia, pleural effusion, abnormal CXR/CT Chief complaint: facial swelling and epistaxis History of present illness: 77 year old female with past medical history significant for COPD , Acute on chronic hypoxic respiratory failure , Atrial fibrillation , ESRD on dialysis came with face swelling and epistaxis treated as cellulitis now here facial swelling better , of late increased shortness of breadth worsening hypoxic respiratory failure pulmonary was consulted for this patient has severe COPD with h/o mucus plugging patient in of the previous admission had bronchsocopy during the procedure she was intubated was in ICU and she recovered , patient looks like she is in mild respiratory distress , has some cough , denies any chest pain or tightness , has some sputum production , denies any hemoptysis . Pulmonary was consulted for worsening respiratory status . Past Med Surg Social Fam HX - Past Medical History Medical history: asthma, atrial fibrillation, COPD, DVT, dialysis, hyperlipidemia, hypertension, osteoporosis, renal disease Psychiatric history: no psych history - Past Surgical History Surgical History: other - Social History Smoking Status: Former smoker Smokeless Tobacco Status: No Alcohol use: none Drug use: none - Family History Mother Living Status: Hx Family Cardiac Disorders: No Hx Family Respiratory Disorders: No Hx Family Cancer: Yes (Colon) Hx Family GI Disorders: No Hx Family Endocrine Disorder: Yes (Borderline DM) Hx Family Neuromuscular Disorders: No Hx Family Neurologic Disorders: No Hx Family HEENT Disorders: No Hx Family Autoimmune Disorders: No Medications and Allergies Albuterol Sulfate [Ventolin Hfa] 2 puff IH Q4H PRN 10/12/16 [History] Allopurinol [Zyloprim] 100 mg PO DAILY 10/12/16 [History] Aspirin 81 mg PO DAILY 10/12/16 [History] Atorvastatin [Lipitor] 40 mg PO HS 10/12/16 [History] Budesonide/Formoterol 160/4.5 [Symbicort 160/4.5] 2 puff IH BIDR 10/12/16 [ History] Cholecalciferol (Vitamin D3) [Vitamin D3] 2,000 unit PO DAILY 10/12/16 [History] Furosemide [Lasix] 20 mg PO QPM 10/12/16 [History] Furosemide [Lasix] 40 mg PO QAM 10/12/16 [History] Levothyroxine [Synthroid] 25 mcg PO DAILY 01/14/17 [History] Metoprolol XL (24 HR) Succ [Toprol Xl] 50 mg PO DAILY 01/14/17 [History] Multivitamin [Multi-Day Vitamins] 1 tab PO DAILY 01/14/17 [History] Acetylcysteine [Z-Xnadhv-j-Cysteine] 600 mg PO TID 03/11/17 [History] HYDROcodone/Acet 5/325 mg [[place] 5-325 mg] 1 tab PO TID PRN 03/11/17 [History] Loratadine [Claritin] 10 mg PO DAILY 03/11/17 [History] Sevelamer [Renvela] 4,000 mg PO TIDWM 03/11/17 [History] Tizanidine HCl 4 mg PO TID PRN 03/11/17 [History] Losartan [Cozaar] 50 mg PO BID #60 tablet 03/14/17 [Rx] Pregabalin [Lyrica] 50 mg PO BID 11/22/17 [History] hydrALAZINE [HydrALAZINE] 50 mg PO BID #120 tablet 12/03/17 [Rx] B Complex W-C No.20/Folic Acid [Virt-Caps Softgel] 1 mg PO DAILY 01/01/18 [ History] amLODIPine [Norvasc] 5 mg PO BID 01/01/18 [History] 3 Allergy/AdvReac Type Severity Reaction Status Date / Time codeine Allergy Rash Verified 11/25/17 14:42 gabapentin Allergy Itching Verified 11/25/17 14:42 All Systems: The remainder of the systems were reviewed and are negative Physical Examination Vital Signs: Vital Signs, Last 4 Hours Temp Pulse Resp BP Pulse Ox 01/08/18 08:03 87 01/08/18 07:52 97.9 F 78 20 163/69 87 General appearance: appears uncomfortable Effort: mildly labored Auscultation: bilateral: diminished breath sounds, wheezes (scattered wheezes ) Results - Laboratory Findings CBC and BMP: 01/08/18 09:42 01/08/18 09:42 ABG ABG pH 7.59 pH Units (7.32-7.45) H 01/05/18 04:08 ABG pCO2 31 mmHg (35-45) L 01/05/18 04:08 ABG pO2 78 mmHg (85-104) L 01/05/18 04:08 ABG O2 Saturation 97 % (95-98) 01/05/18 04:08 PT/INR, D-dimer PT 10.9 Seconds (9.4-12.1) 01/01/18 11:29 D-Dimer 5201 ng/mLFEU (0-500) H 01/04/18 01:02 Abnormal lab findings: Abnormal lab results RBC 2.52 M/mcL (3.82-4.97) L 01/06/18 04:00 Hgb 8.5 g/dL (11.5-15.4) L 01/06/18 04:00 Hct 26.0 % (35.3-44.9) L 01/06/18 04:00 MCV 103.2 fL (83.0-100.0) H 01/06/18 04:00 MCH 33.7 pg (28.0-33.3) H 01/06/18 04:00 RDW 14.7 % (11.5-14.5) H 01/06/18 04:00 Nucleated RBCs/100 WBC 0.4 /100 WBC (0) H 01/02/18 05:02 D-Dimer 5201 ng/mLFEU (0-500) H 01/04/18 01:02 ABG pH 7.59 pH Units (7.32-7.45) H 01/05/18 04:08 ABG pCO2 31 mmHg (35-45) L 01/05/18 04:08 ABG pO2 78 mmHg (85-104) L 01/05/18 04:08 ABG HCO3 30 mEq/L (21-27) H 01/05/18 04:08 ABG Total CO2 31 mEq/L (20-26) H 01/05/18 04:08 ABG Base Excess 8 mEq/L (-2 to 3) H 01/05/18 04:08 BUN 32 mg/dL (8-23) H 01/06/18 04:00 Creatinine 5.54 mg/dL (0.60-1.20) H 01/06/18 04:00 Est GFR ( Amer) 9 (> 60) L 01/06/18 04:00 Est GFR (Non-Af Amer) 7 (> 60) L 01/06/18 04:00 Glucose 112 mg/dL (70-105) H 01/06/18 04:00 POC Glucose 117 (58-89) H 01/02/18 12:00 Alkaline Phosphatase 144 Units/L (34-104) H 01/04/18 01:02 Troponin I 0.16 ng/mL (< 0.04) H* 01/05/18 16:00 Serum Total Protein 5.5 g/dL (6.4-8.9) L 01/04/18 01:02 Albumin 3.2 g/dL (3.5-5.7) L 01/04/18 01:02 Globulin 2.3 g/dL (2.4-3.5) L 01/04/18 01:02 Procalcitonin 1.38 ng/mL (<=0.10) H 01/01/18 17:58 TSH 10.740 mcIU/mL (0.340-5.600) H 01/04/18 08:30 Free T3 1.83 pg/mL (2.50-3.90) L 01/06/18 04:00 Total T3 0.59 ng/mL (0.87-1.78) L 01/06/18 04:00 Urine Protein >=300 mg/dL (Neg-Trace) H 01/04/18 08:10 Urine Glucose (UA) 100 mg/dL (Normal) H 01/04/18 08:10 Urine Microscopic WBC 3-5 per hpf (0-3) H 01/04/18 08:10 Ur Squamous Epith Cells Moderate per lpf (None-Few) H 01/04/18 08:10 - Clinical Findings Intake & Output: Intake & Output 01/07/18 01/08/18 01/08/18 23:59 07:59 15:59 Intake Total 300 / 300 0 / 0 0 / 0 Output Total 0 / 0 Balance 300 / 300 0 / 0 0 / 0 Weight 66.6 kg Consult Discharge Plan - Plan Referrals: Vladimir Chaidez MD [Primary Care Provider] -
--- NOTE | 2018-01-08 09:24 | Internal Med Progress Note ---
Date of Encounter: 01/08/18 Time of Encounter: 09:22 - Assessment and plan (1) Facial swelling Current Visit: Yes Status: Resolved Assessment and plan: Resolved. Completed 7 days of vancomycin. (2) Cellulitis and abscess of face Current Visit: Yes Status: Resolved Assessment and plan: Resolved. Treated as per above. (3) Acute encephalopathy Current Visit: Yes Status: Resolved Assessment and plan: Resolved. Now back to baseline mentation. (4) Acute respiratory failure with hypoxia Current Visit: Yes Status: Acute Assessment and plan: Increasing O2 requirement overnight. Repeat ABG and CXR this AM. Will consult pulmonology today; appreciate input. Continue IV lasix and duonebs for pulmonary edema. Continue dialysis per schedule, which will also help with excess fluid. Continue cefepime to cover for possible pneumonia; she recently had a long hospitalization for this. Cardiology consulted for elevated troponin ; appreciate input. Continue ativan 0.5 mg Q6H PRN anxiety. Continue guaifenesin, claritin, and mucomyst inhaled to help with respiratory secretions/ cough. Get up to chair at least 4 times daily. Dialysis per nephrology. Wean supplemental O2 as tolerated. Repeat labwork in AM. (5) CKD (chronic kidney disease) stage 2, GFR 60-89 ml/min Current Visit: Yes Status: Chronic Assessment and plan: Nephrology consulted; appreciate input. Continue dialysis per schedule. (6) HTN (hypertension) Current Visit: Yes Status: Chronic Assessment and plan: Continue home medications. Continue hydralazine PRN. Qualifiers: Hypertension type: secondary to other renal disorders Qualified Code(s): I15.1 - Hypertension secondary to other renal disorders; N28.89 - Other specified disorders of kidney and ureter; N28.89 - Other specified disorders of kidney and ureter (7) Elevated troponin Current Visit: Yes Status: Acute Assessment and plan: Cardiology consulted; appreciate input. Will follow recommendations. (8) HCAP (healthcare-associated pneumonia) Current Visit: No Status: Suspected Assessment and plan: Possible pneumonia per CTA chest. Continue cefepime. Continue supplemental O2. Continue duonebs Q6H and albuterol nebs Q4H PRN. Continue guaifenesin, claritin, and mucomyst inhaled as per above. Pulmonology consulted today; appreciate input. (9) Pulmonary edema Current Visit: Yes Status: Acute Assessment and plan: Continue IV lasix BID as per above. Continue dialysis as scheduled. Continue supplemental O2 and wean as tolerated. Continue duonebs and albuterol nebs PRN as per above. Consulted pulmonology today; appreciate input. Check BMP in AM. Qualifiers: Chronicity: acute Qualified Code(s): J81.0 - Acute pulmonary edema (10) DVT prophylaxis Current Visit: Yes Status: Acute Assessment and plan: Continue heparin SC. - Time Spent With Patient less than 15 minutes - Subjective Interval history: Patient had no acute events overnight. She is more tachypnic this AM, with increasing oxygen requirement. She is now on oxymask 15 L O2. She states that she "just not feeling good." She denies chest pain, fever, or chills. She does not voice any other specific complaints or concerns at this time. - Constitutional Vitals: Temp Pulse Resp BP Pulse Ox 97.9 F 78 20 163/69 87 01/08/18 07:52 01/08/18 07:52 01/08/18 07:52 01/08/18 07:52 01/08/18 08:03 General appearance: Present: cooperative, A&O X 3, pleasant, no acute distress, answers questions appropriately - Respiratory Respiratory exam: Present: CTAB. Absent: accessory muscle use, rales, wheezes Additional comments: Mildly labored WOB, intermittent bilateral rhonchi - Cardiovascular Cardiovascular exam: Present: RRR, +S1, +S2. Absent: diastolic murmur, gallop, rubs, systolic murmur Additional comments: No BLE edema - GI/Abdominal GI/Abdominal exam: Present: normal bowel sounds, soft. Absent: distended, hepatomegaly, mass, splenomegaly, tenderness - Psychiatric Psychiatric exam: Present: normal affect, normal mood. Absent: anxious, depressed - Skin Skin exam: Present: dry, intact, warm. Absent: cyanosis, rash Internal Medicine: Result - Labs CBC & Chem 7: 01/06/18 04:00 01/06/18 04:00 - ABG Interpretation ABG results: ABG ABG pH 7.59 pH Units (7.32-7.45) H 01/05/18 04:08 ABG pCO2 31 mmHg (35-45) L 01/05/18 04:08 ABG pO2 78 mmHg (85-104) L 01/05/18 04:08 ABG O2 Saturation 97 % (95-98) 01/05/18 04:08 PT/INR, D-dimer PT 10.9 Seconds (9.4-12.1) 01/01/18 11:29 D-Dimer 5201 ng/mLFEU (0-500) H 01/04/18 01:02 - VTE Documentation of Mechanical Device: Intermittent pneumatic compression device Consult Discharge Plan - Plan Referrals: Vladimir Chaidez MD [Primary Care Provider] -
[2018-01-08 09:56] LABS: Basophils % 0.6 %; Eosinophils # 0.1 K/mcL (0.0-0.6); Eosinophils % 1.1 %; Hemoglobin 8.3 g/dL (11.5-15.4); Immature Granulocytes % 1.9 % (0-4); Lymphocytes % 18.6 %; Mean Corpuscular HGB Conc 31.9 g/dL (31.6-35.5); Mean Corpuscular Hemoglobin 34.3 pg (28.0-33.3); Mean Corpuscular Volume 107.4 fL (83.0-100.0); Mean Platelet Volume 9.9 fL (9.4-12.4); Monocytes # 0.5 K/mcL (0.0-1.3); Monocytes % 9.5 %; Neutrophils # 3.7 K/mcL (1.6-8.9); Nucleated Red Blood Cells 0.4 /100 WBC (0); Platelet Count 190 K/mcL (140-400); Red Blood Count 2.42 M/mcL (3.82-4.97); Red Cell Distribution Width 15.1 % (11.5-14.5); Segmented Neutrophils % 68.3 %
[2018-01-08 10:00] LABS: ABG Base Excess 7 mEq/L (-2 to 3); ABG HCO3 32 mEq/L (21-27); ABG Oxygen Saturation 91 % (95-98); ABG PCO2 48 mmHg (35-45); ABG PH 7.44 pH Units (7.32-7.45); ABG PO2 59 mmHg (85-104); ABG TCO2 34 mEq/L (20-26)
[2018-01-08 10:14] LABS: Calcium 9.7 mg/dL (8.6-10.3); Potassium 4.6 mEq/L (3.5-5.1)
[2018-01-08] MEDS: Budesonide/Formoterol 160/4.5 MDI IH SCH ×2 (10:39→22:35)
[2018-01-08] MEDS ORDERED: Acetaminophen 325 MG TABLET PO PRN (13:29)
[2018-01-08] MEDS ORDERED: MOM Conc 10 ML UD.LIQ PO PRN (13:29)
[2018-01-08] MEDS ORDERED: 0.9 % Sodium Chloride 1,000 ML PRIME SCH (13:29)
[2018-01-08] MEDS ORDERED: Albuterol 2.5 MG/3 ML NEBULIZER IH PRN (13:29)
[2018-01-08] MEDS ORDERED: Naloxone 0.4 MG/ML INJ IVP PRN (13:29)
[2018-01-08] MEDS ORDERED: tiZANidine 4 MG TABLET PO PRN (13:29)
[2018-01-08] MEDS ORDERED: *HR* HYDROcodone/Acet 5/325 mg TABLET PO PRN (13:29)
[2018-01-08] MEDS ORDERED: 0.9 % Sodium Chloride 250 ML IVC PRN (13:29)
[2018-01-08] MEDS ORDERED: *HR* LORazepam 2 MG/ML VIAL IVP PRN (13:29)
[2018-01-08] MEDS ORDERED: *HR* Acetylcysteine 20% 600 MG/3 ML ORAL SYRINGE PO SCH (15:00)
[2018-01-08] MEDS: MetroNIDAZOLE 500 MG/100 ML 500 MG/100 ML BAG IVPB SCH (17:11)
[2018-01-08] MEDS: Cefepime HCl 1,000 MG in Water for inj. (sterile) 20 ML 10 ML IVP SCH (17:11)
[2018-01-09] MEDS: MetroNIDAZOLE 500 MG/100 ML 500 MG/100 ML BAG IVPB SCH ×2 (00:08→08:18)
[2018-01-09] MEDS: Ipratropium/Albuterol Neb 3 ML IH SCH ×4 (03:44→21:05)
[2018-01-09] MEDS: Acetylcysteine 10% 2 ML INHSOL IH SCH ×4 (03:45→21:05)
[2018-01-09 04:35] LABS: Basophils % 0.7 %; Eosinophils # 0.1 K/mcL (0.0-0.6); Eosinophils % 0.9 %; Hematocrit 27.2 % (35.3-44.9); Hemoglobin 8.6 g/dL (11.5-15.4); Immature Granulocytes % 3.4 % (0-4); Lymphocytes # 1.3 K/mcL (0.6-4.6); Lymphocytes % 23.7 %; Mean Corpuscular HGB Conc 31.6 g/dL (31.6-35.5); Mean Corpuscular Hemoglobin 34.1 pg (28.0-33.3); Mean Corpuscular Volume 107.9 fL (83.0-100.0); Monocytes # 0.5 K/mcL (0.0-1.3); Neutrophils # 3.3 K/mcL (1.6-8.9); Nucleated Red Blood Cells 0.6 /100 WBC (0); Platelet Count 210 K/mcL (140-400); Red Blood Count 2.52 M/mcL (3.82-4.97); Red Cell Distribution Width 15.7 % (11.5-14.5); Segmented Neutrophils % 62.3 %
[2018-01-09 05:02] LABS: Calcium 9.7 mg/dL (8.6-10.3); Potassium 5.4 mEq/L (3.5-5.1)
[2018-01-09] MEDS: *HR* Heparin 5,000 UNIT/ML VIAL SQ SCH ×3 (06:18→20:47)
[2018-01-09] MEDS: Levothyroxine 25 MCG TABLET PO SCH (06:18)
--- NOTE | 2018-01-09 07:14 | Pulmonology Progress Note ---
Date of Encounter: 01/09/18 Time of Encounter: 07:13 Assessment and Plan (1) Acute and chronic respiratory failure with hypoxia Current Visit: No Status: Acute This is a [place] of hydrostatic pulmonary edema pneumonia and it is plugging of bronchitis continue supplemental oxygen to keep saturation around 89 -92% in addition BiPAP most of day today with brakes to eat and rest (2) Pneumonia involving left lung Current Visit: No Status: Acute Patient is on antimicrobials with platelet de-escalate based upon culture sensitivity. She just completed a weeklong course of MRSA coverage Qualifiers: Pneumonia type: due to other aerobic Gram-negative bacteria Lung location: lower lobe of lung Qualified Code(s): J15.6 - Pneumonia due to other Gram- negative bacteria (3) Pulmonary edema Current Visit: Yes Status: Acute Hydrostatic pulmonary edema which should improve with volume removal with dialysis Qualifiers: Chronicity: acute Qualified Code(s): J81.0 - Acute pulmonary edema (4) ESRD on dialysis Current Visit: Yes Status: Chronic Nephrology following plan for [employer] today (5) Acute exacerbation of chronic obstructive pulmonary disease (COPD) Current Visit: No Status: Acute She is on bronchodilators and steroids for this continue BiPAP as needed for work of breathing (6) Mucus plugging of bronchi Current Visit: No Status: Acute We are using aggressive bronchopulmonary toileting with planned to try to open left upper lobe if this fails to respond by tomorrow likely need bronchoscopy CT will be repeated tomorrow prior to this procedure Continue incentive spirometer focal percussor Accucap therapy out of bed to chair Subjective Principal diagnosis: Pneumonia Interval history: Patient has done somewhat better overnight she were BiPAP for the entirety of the night and has been able to have that off now without significant hypoxemia which was noted yesterday although she still remains on high flow nasal cannula. She has been undergoing aggressive bronchopulmonary toileting every 2- 3 hours she says that her breathing is little bit easier now. Objective PUL Vital signs: Last Vital Signs Temp 98.0 F 01/09/18 05:07 Pulse 77 01/09/18 06:16 Resp 18 01/09/18 06:16 BP 134/66 01/09/18 06:16 Pulse Ox 96 01/09/18 06:16 General appearance: no acute distress Eyes: nonicteric Auscultation: bilateral: wheezes, rhonchi (Left greater than right) Cardiovascular: regular rate and rhythm Gastrointestinal: normoactive bowel sounds, soft, non-tender Extremities: no edema normal mental status, non-focal exam mood appropriate Results - Laboratory Findings CBC and BMP: 01/09/18 04:00 01/09/18 04:19 ABG ABG pH 7.44 pH Units (7.32-7.45) 01/08/18 09:48 ABG pCO2 48 mmHg (35-45) H 01/08/18 09:48 ABG pO2 59 mmHg (85-104) L 01/08/18 09:48 ABG O2 Saturation 91 % (95-98) L 01/08/18 09:48 PT/INR, D-dimer PT 10.9 Seconds (9.4-12.1) 01/01/18 11:29 D-Dimer 5201 ng/mLFEU (0-500) H 01/04/18 01:02 Abnormal lab findings: Abnormal lab results RBC 2.52 M/mcL (3.82-4.97) L 01/09/18 04:00 Hgb 8.6 g/dL (11.5-15.4) L 01/09/18 04:00 Hct 27.2 % (35.3-44.9) L 01/09/18 04:00 MCV 107.9 fL (83.0-100.0) H 01/09/18 04:00 MCH 34.1 pg (28.0-33.3) H 01/09/18 04:00 RDW 15.7 % (11.5-14.5) H 01/09/18 04:00 Nucleated RBCs/100 WBC 0.6 /100 WBC (0) H 01/09/18 04:00 D-Dimer 5201 ng/mLFEU (0-500) H 01/04/18 01:02 ABG pCO2 48 mmHg (35-45) H 01/08/18 09:48 ABG pO2 59 mmHg (85-104) L 01/08/18 09:48 ABG HCO3 32 mEq/L (21-27) H 01/08/18 09:48 ABG Total CO2 34 mEq/L (20-26) H 01/08/18 09:48 ABG O2 Saturation 91 % (95-98) L 01/08/18 09:48 ABG Base Excess 7 mEq/L (-2 to 3) H 01/08/18 09:48 Sodium 134 mEq/L (136-145) L 01/09/18 04:19 Potassium 5.4 mEq/L (3.5-5.1) H 01/09/18 04:19 BUN 34 mg/dL (8-23) H 01/09/18 04:19 Creatinine 6.88 mg/dL (0.60-1.20) H 01/09/18 04:19 Est GFR ( Amer) 7 (> 60) L 01/09/18 04:19 Est GFR (Non-Af Amer) 6 (> 60) L 01/09/18 04:19 BUN/Creatinine Ratio 5 (6-26) L 01/09/18 04:19 POC Glucose 110 mg/dL (58-89) H 01/08/18 13:04 Alkaline Phosphatase 144 Units/L (34-104) H 01/04/18 01:02 Troponin I 0.16 ng/mL (< 0.04) H* 01/05/18 16:00 Serum Total Protein 5.5 g/dL (6.4-8.9) L 01/04/18 01:02 Albumin 3.2 g/dL (3.5-5.7) L 01/04/18 01:02 Globulin 2.3 g/dL (2.4-3.5) L 01/04/18 01:02 Procalcitonin 1.38 ng/mL (<=0.10) H 01/01/18 17:58 TSH 10.740 mcIU/mL (0.340-5.600) H 01/04/18 08:30 Free T3 1.83 pg/mL (2.50-3.90) L 01/06/18 04:00 Total T3 0.59 ng/mL (0.87-1.78) L 01/06/18 04:00 Urine Protein >=300 mg/dL (Neg-Trace) H 01/04/18 08:10 Urine Glucose (UA) 100 mg/dL (Normal) H 01/04/18 08:10 Urine Microscopic WBC 3-5 per hpf (0-3) H 01/04/18 08:10 Ur Squamous Epith Cells Moderate per lpf (None-Few) H 01/04/18 08:10 - Diagnostic Findings Chest x-ray: report reviewed, image reviewed - Clinical Findings Intake & Output: Intake & Output 01/08/18 01/08/18 01/09/18 15:59 23:59 07:59 Intake Total 240 / 240 160 / 160 340 / 340 Output Total 0 / 0 0 / 0 0 / 0 Balance 240 / 240 160 / 160 340 / 340 Weight 67 kg - VTE Documentation of Mechanical Device: Intermittent pneumatic compression device Consult Discharge Plan - Plan Referrals: Vladimir Chaidez MD [Primary Care Provider] -
[2018-01-09] MEDS ORDERED: 0.9 % Sodium Chloride 2,000 ML ONE (07:41)
[2018-01-09] MEDS: Furosemide 40 MG/4 ML VIAL IVP SCH (08:18)
[2018-01-09] MEDS: amLODIPine 5 MG TABLET PO SCH ×2 (08:20→20:46)
[2018-01-09] MEDS: Loratadine 10 MG TABLET PO SCH (08:20)
[2018-01-09] MEDS: Aspirin 81 MG TAB.CHEW PO SCH (08:20)
[2018-01-09] MEDS: hydrALAZINE 25 MG TABLET PO SCH ×2 (08:21→20:46)
[2018-01-09] MEDS: Metoprolol XL (24 HR) Succ 50 MG TAB.ER.24H PO SCH (08:21)
[2018-01-09] MEDS: Pregabalin 50 MG CAPSULE PO SCH ×2 (08:21→20:47)
[2018-01-09] MEDS: Multivit/Ca/Min/Fe/FA 1 TAB TABLET PO SCH (08:22)
[2018-01-09] MEDS: Renal Vitamin 1 MG CAPSULE PO SCH (08:22)
[2018-01-09] MEDS: Cholecalciferol (D-3) 1,000 UNIT TABLET PO SCH (08:22)
[2018-01-09] MEDS ORDERED: 0.9 % Sodium Chloride 250 ML IVC PRN (08:28)
--- NOTE | 2018-01-09 08:28 | Nephrology Progress Note ---
Date of Encounter: 01/09/18 Time of Encounter: 08:26 - Assessment and Plan (1) ESRD on dialysis Current Visit: Yes Status: Chronic The patient will undergo dialysis today with additional volume removal. Potassium is 5.4 so she will be dialyzed on a 2K bath. (2) Anemia in chronic kidney disease (CKD) Current Visit: No Status: Chronic Qualifiers: Chronic kidney disease stage: on chronic dialysis Qualified Code(s): N18.6 - End stage renal disease; D63.1 - Anemia in chronic kidney disease; D63.1 - Anemia in chronic kidney disease; Z99.2 - Dependence on renal dialysis; Z99.2 - Dependence on renal dialysis; Z99.2 - Dependence on renal dialysis; Z99.2 - Dependence on renal dialysis (3) Infection of nose Current Visit: Yes Status: Acute Subjective Interval history: The patient has been transferred to the intensive care unit in response to increasing shortness of breath related to pulmonary secretions and mucous plugging. She continues to have some cough and sputum production. She is on antibiotics and receiving pulmonary toilet. She is scheduled for her usual dialysis today. Objective - Vital Signs Vital signs: Vital Signs Temp Pulse Resp BP Pulse Ox 01/09/18 07:00 74 21 140/64 96 01/09/18 06:16 77 18 134/66 96 01/09/18 05:30 73 20 144/56 96 01/09/18 05:07 98.0 F 01/09/18 04:20 73 22 141/63 92 01/09/18 03:45 23 93 01/09/18 03:11 73 25 130/57 99 01/09/18 02:00 74 18 121/59 96 01/09/18 01:00 73 23 118/54 95 01/09/18 00:53 98.0 F 01/09/18 00:00 76 19 144/68 96 01/08/18 23:00 73 22 140/58 95 01/08/18 22:35 21 139/53 93 01/08/18 22:30 73 27 139/53 93 01/08/18 21:00 72 19 149/58 95 01/08/18 20:30 75 22 139/71 92 01/08/18 19:30 72 24 151/65 95 01/08/18 17:06 72 22 163/74 95 01/08/18 16:04 28 90 01/08/18 16:00 98.1 F 01/08/18 15:43 71 19 124/53 99 01/08/18 14:36 70 25 142/55 98 01/08/18 13:30 97.8 F 01/08/18 13:14 75 40 147/68 95 01/08/18 13:00 30 93 01/08/18 12:20 22 76 01/08/18 11:57 99.3 F 74 20 133/50 91 01/08/18 10:43 20 89 Intake and Output 01/08/18 01/09/18 01/09/18 23:59 07:59 15:59 Intake Total 160 / 160 340 / 340 Output Total 0 / 0 0 / 0 Balance 160 / 160 340 / 340 Intake: IV Fluids 100 / 100 100 / 100 Flagyl Premix 500 MG/100 ML 500 100 / 100 100 / 100 mg In 100 ml @ 100 mls/hr IVPB Q8HR [facility] Rx#:[id number] Oral 60 / 60 240 / 240 Output: Urine 0 / 0 0 / 0 Other: Weight 67 kg Patient Weight 01/09/18 23:59 Weight 67 kg - General Appearance Exam: Patient appears alert and oriented. She is in no acute distress. Lungs demonstrate bilateral rhonchi and coarse breath sounds. Heart regular rate and rhythm. Abdomen is benign. There is minimal lower extremity swelling. This functioning AV fistula in the left upper extremity. - Lab 01/09/18 04:00 01/09/18 04:19 Most recent lab results ABG pH 7.44 pH Units (7.32-7.45) 01/08/18 09:48 ABG pCO2 48 mmHg (35-45) H 01/08/18 09:48 ABG pO2 59 mmHg (85-104) L 01/08/18 09:48 ABG HCO3 32 mEq/L (21-27) H 01/08/18 09:48 ABG O2 Saturation 91 % (95-98) L 01/08/18 09:48 Calcium 9.7 mg/dL (8.6-10.3) 01/09/18 04:19 Magnesium 2.2 mg/dL (1.6-2.6) 01/05/18 03:50 - VTE Documentation of Mechanical Device: Intermittent pneumatic compression device Consult Discharge Plan - Plan Referrals: Vladimir Chaidez MD [Primary Care Provider] -
[2018-01-09] MEDS: Budesonide/Formoterol 160/4.5 MDI IH SCH ×2 (09:21→21:06)
[2018-01-09] MEDS: Cefepime HCl 1,000 MG in Water for inj. (sterile) 20 ML 10 ML IVP SCH (17:57)
[2018-01-09] MEDS: MethylPREDNISolone 40 MG/ML VIAL IVP SCH (17:57)
[2018-01-10] MEDS: Ipratropium/Albuterol Neb 3 ML IH SCH ×6 (00:09→20:35)
[2018-01-10] MEDS: Acetylcysteine 10% 2 ML INHSOL IH SCH ×6 (00:09→20:35)
[2018-01-10] MEDS: MethylPREDNISolone 40 MG/ML VIAL IVP SCH ×3 (00:17→15:54)
[2018-01-10 04:23] LABS: Basophils % 0.2 %; Hematocrit 26.9 % (35.3-44.9); Hemoglobin 8.5 g/dL (11.5-15.4); Immature Granulocytes % 2.6 % (0-4); Lymphocytes # 0.4 K/mcL (0.6-4.6); Lymphocytes % 6.3 %; Mean Corpuscular HGB Conc 31.6 g/dL (31.6-35.5); Mean Corpuscular Hemoglobin 33.3 pg (28.0-33.3); Mean Corpuscular Volume 105.5 fL (83.0-100.0); Mean Platelet Volume 10.4 fL (9.4-12.4); Monocytes % 0.7 %; Neutrophils # 5.1 K/mcL (1.6-8.9); Nucleated Red Blood Cells 0.4 /100 WBC (0); Platelet Count 237 K/mcL (140-400); Red Blood Count 2.55 M/mcL (3.82-4.97); Red Cell Distribution Width 15.9 % (11.5-14.5); Segmented Neutrophils % 90.2 %
[2018-01-10 04:33] LABS: Calcium 9.7 mg/dL (8.6-10.3); Potassium 5.3 mEq/L (3.5-5.1)
[2018-01-10] MEDS: Levothyroxine 25 MCG TABLET PO SCH (05:41)
[2018-01-10] MEDS: *HR* Heparin 5,000 UNIT/ML VIAL SQ SCH ×3 (05:41→21:49)
[2018-01-10] MEDS: Budesonide/Formoterol 160/4.5 MDI IH SCH ×2 (07:36→20:35)
[2018-01-10] MEDS: Pregabalin 50 MG CAPSULE PO SCH ×3 (08:00→21:48)
[2018-01-10] MEDS: hydrALAZINE 25 MG TABLET PO SCH ×5 (08:00→21:48)
[2018-01-10] MEDS: Aspirin 81 MG TAB.CHEW PO SCH ×2 (08:00→13:21)
[2018-01-10] MEDS: amLODIPine 5 MG TABLET PO SCH ×3 (08:00→21:48)
[2018-01-10] MEDS: Loratadine 10 MG TABLET PO SCH ×2 (08:00→13:22)
[2018-01-10] MEDS: Renal Vitamin 1 MG CAPSULE PO SCH ×2 (08:00→13:27)
[2018-01-10] MEDS: Cholecalciferol (D-3) 1,000 UNIT TABLET PO SCH ×2 (08:01→13:21)
[2018-01-10] MEDS: Metoprolol XL (24 HR) Succ 50 MG TAB.ER.24H PO SCH ×2 (08:01→13:22)
[2018-01-10] MEDS: Multivit/Ca/Min/Fe/FA 1 TAB TABLET PO SCH ×2 (08:01→13:21)
--- NOTE | 2018-01-10 08:13 | Nephrology Progress Note ---
Date of Encounter: 01/10/18 Time of Encounter: 08:12 - Assessment and Plan (1) ESRD on dialysis Current Visit: Yes Status: Chronic The patient will continue to be supported with dialysis every Tuesday. (2) Anemia in chronic kidney disease (CKD) Current Visit: No Status: Chronic Qualifiers: Chronic kidney disease stage: on chronic dialysis Qualified Code(s): N18.6 - End stage renal disease; D63.1 - Anemia in chronic kidney disease; D63.1 - Anemia in chronic kidney disease; Z99.2 - Dependence on renal dialysis; Z99.2 - Dependence on renal dialysis; Z99.2 - Dependence on renal dialysis; Z99.2 - Dependence on renal dialysis (3) Infection of nose Current Visit: Yes Status: Acute Subjective Principal diagnosis: Pneumonia Interval history: The patient is currently resting comfortably on BiPAP. Recent CAT scan showed left upper lobe collapse related to mucous plugging. Patient did undergo dialysis yesterday. Objective - Vital Signs Vital signs: Vital Signs Temp Pulse Resp BP Pulse Ox 01/10/18 07:36 26 161/70 98 01/10/18 07:31 97.9 F 78 01/10/18 07:00 20 146/65 100 01/10/18 06:30 83 28 151/69 100 01/10/18 06:00 27 100 01/10/18 05:30 80 37 141/63 99 01/10/18 04:15 98.3 F 01/10/18 04:00 73 21 128/54 100 01/10/18 03:33 18 116/50 100 01/10/18 03:00 73 17 126/52 100 01/10/18 02:00 73 17 108/47 97 01/10/18 01:00 78 19 128/54 98 01/10/18 00:24 73 19 123/51 99 01/10/18 00:19 98.5 F 01/10/18 00:09 18 123/51 98 01/09/18 23:00 78 16 136/57 98 01/09/18 22:00 80 22 155/65 98 01/09/18 21:15 80 27 141/72 97 01/09/18 21:06 33 141/72 97 01/09/18 21:04 80 01/09/18 20:18 98.7 F 01/09/18 20:00 86 24 162/71 94 01/09/18 19:00 83 25 168/70 95 01/09/18 18:00 84 25 125/38 96 01/09/18 17:00 83 24 132/59 96 01/09/18 16:00 97.3 F L 86 24 157/69 90 01/09/18 15:58 32 157/69 90 01/09/18 15:00 79 19 138/61 98 01/09/18 14:00 79 23 154/68 99 01/09/18 13:00 81 16 134/83 86 01/09/18 12:51 97.0 F L 01/09/18 12:30 97.0 F L 18 147/64 01/09/18 12:15 113/65 01/09/18 12:00 71 21 132/60 96 01/09/18 11:45 132/61 01/09/18 11:30 144/70 01/09/18 11:15 147/64 01/09/18 11:00 70 23 137/59 92 01/09/18 10:45 130/59 01/09/18 10:30 146/63 01/09/18 10:15 156/63 01/09/18 10:00 77 21 156/66 90 01/09/18 09:45 161/67 01/09/18 09:30 97.5 F L 18 161/67 01/09/18 09:22 18 89 01/09/18 09:00 81 18 144/71 89 01/09/18 08:37 97.5 F L Intake and Output 01/09/18 01/10/18 01/10/18 23:59 07:59 15:59 Intake Total 60 / 60 0 / 0 Balance 60 / 60 0 / 0 Intake: IV Fluids Maxipime 1,000 MG In Water for inj. (sterile) 10 ML @ 150 mls/ hr IVP Q24H [facility] Rx#:[id number] Oral 50 / 50 0 / 0 Other: Meal Dinner Percent of Meal Consumed 50% Weight 62.7 kg Patient Weight 01/10/18 23:59 Weight 62.7 kg - General Appearance Exam: Patient is on BiPAP. Lungs coarse breath sounds. Heart regular rate and rhythm. Abdomen is benign. There is no lower extremity swelling. There is an AV access in the left upper extremity. - Lab 01/10/18 03:55 01/10/18 03:55 Most recent lab results ABG pH 7.44 pH Units (7.32-7.45) 01/08/18 09:48 ABG pCO2 48 mmHg (35-45) H 01/08/18 09:48 ABG pO2 59 mmHg (85-104) L 01/08/18 09:48 ABG HCO3 32 mEq/L (21-27) H 01/08/18 09:48 ABG O2 Saturation 91 % (95-98) L 01/08/18 09:48 Calcium 9.7 mg/dL (8.6-10.3) 01/10/18 03:55 Magnesium 2.2 mg/dL (1.6-2.6) 01/05/18 03:50 - VTE Documentation of Mechanical Device: Intermittent pneumatic compression device Consult Discharge Plan - Plan Referrals: Vladimir Chaidez MD [Primary Care Provider] -
--- NOTE | 2018-01-10 09:13 | Pulmonology Progress Note ---
Date of Encounter: 01/10/18 Time of Encounter: 09:13 Assessment and Plan (1) Acute and chronic respiratory failure with hypoxia Current Visit: No Status: Acute s/t hydrostatic edema and pneumonia with mucus plugging of bronchi continue supplemental oxygen to keep saturation around 89-92% in addition BiPAP most of day today with brakes to eat and rest (2) Pneumonia involving left lung Current Visit: No Status: Acute Patient is on antimicrobials with plan de-escalate based upon culture sensitivity. She just completed a weeklong course of MRSA coverage Qualifiers: Pneumonia type: due to other aerobic Gram-negative bacteria Lung location: lower lobe of lung Qualified Code(s): J15.6 - Pneumonia due to other Gram- negative bacteria (3) Pulmonary edema Current Visit: Yes Status: Acute Hydrostatic pulmonary edema which should improve with volume removal with dialysis Qualifiers: Chronicity: acute Qualified Code(s): J81.0 - Acute pulmonary edema (4) ESRD on dialysis Current Visit: Yes Status: Chronic Nephrology following [employer] today per schedule (5) Acute exacerbation of chronic obstructive pulmonary disease (COPD) Current Visit: No Status: Acute She is on bronchodilators and steroids for this continue BiPAP as needed for work of breathing (6) Mucus plugging of bronchi Current Visit: No Status: Acute We are using aggressive bronchopulmonary toileting with planned to try to open left upper lobe which appears to have failed conservative measures Plan for bronch with GA tomorrow Continue incentive spirometer focal percussor Accucap therapy out of bed to chair Subjective Principal diagnosis: Pneumonia Interval history: No real change in clinical course overnight despite aggressive bronchopulmonary toileting patient has had continued requirement for BiPAP. Underwent dialysis yesterday without issue otherwise hemodynamically stable Objective PUL Vital signs: Last Vital Signs Temp 97.9 F 01/10/18 07:31 Pulse 78 01/10/18 08:44 Resp 26 01/10/18 08:44 BP 150/70 01/10/18 08:44 Pulse Ox 99 01/10/18 08:44 General appearance: no acute distress Effort: mildly labored Auscultation: bilateral: wheezes (Faint expiratory wheeze``), rhonchi (Left greater than right) Cardiovascular: regular rate and rhythm non-focal exam mood appropriate Results - Laboratory Findings CBC and BMP: 01/10/18 03:55 01/10/18 03:55 ABG ABG pH 7.44 pH Units (7.32-7.45) 01/08/18 09:48 ABG pCO2 48 mmHg (35-45) H 01/08/18 09:48 ABG pO2 59 mmHg (85-104) L 01/08/18 09:48 ABG O2 Saturation 91 % (95-98) L 01/08/18 09:48 PT/INR, D-dimer PT 10.9 Seconds (9.4-12.1) 01/01/18 11:29 D-Dimer 5201 ng/mLFEU (0-500) H 01/04/18 01:02 Abnormal lab findings: Abnormal lab results RBC 2.55 M/mcL (3.82-4.97) L 01/10/18 03:55 Hgb 8.5 g/dL (11.5-15.4) L 01/10/18 03:55 Hct 26.9 % (35.3-44.9) L 01/10/18 03:55 MCV 105.5 fL (83.0-100.0) H 01/10/18 03:55 RDW 15.9 % (11.5-14.5) H 01/10/18 03:55 Lymphocytes # 0.4 K/mcL (0.6-4.6) L 01/10/18 03:55 Nucleated RBCs/100 WBC 0.4 /100 WBC (0) H 01/10/18 03:55 D-Dimer 5201 ng/mLFEU (0-500) H 01/04/18 01:02 ABG pCO2 48 mmHg (35-45) H 01/08/18 09:48 ABG pO2 59 mmHg (85-104) L 01/08/18 09:48 ABG HCO3 32 mEq/L (21-27) H 01/08/18 09:48 ABG Total CO2 34 mEq/L (20-26) H 01/08/18 09:48 ABG O2 Saturation 91 % (95-98) L 01/08/18 09:48 ABG Base Excess 7 mEq/L (-2 to 3) H 01/08/18 09:48 Sodium 134 mEq/L (136-145) L 01/10/18 03:55 Potassium 5.3 mEq/L (3.5-5.1) H 01/10/18 03:55 Carbon Dioxide 30 mEq/L (23-29) H 01/10/18 03:55 Creatinine 4.71 mg/dL (0.60-1.20) H 01/10/18 03:55 Est GFR ( Amer) 11 (> 60) L 01/10/18 03:55 Est GFR (Non-Af Amer) 9 (> 60) L 01/10/18 03:55 BUN/Creatinine Ratio 5 (6-26) L 01/10/18 03:55 Glucose 160 mg/dL (70-105) H 01/10/18 03:55 POC Glucose 110 mg/dL (58-89) H 01/08/18 13:04 Alkaline Phosphatase 144 Units/L (34-104) H 01/04/18 01:02 Troponin I 0.16 ng/mL (< 0.04) H* 01/05/18 16:00 Serum Total Protein 5.5 g/dL (6.4-8.9) L 01/04/18 01:02 Albumin 3.2 g/dL (3.5-5.7) L 01/04/18 01:02 Globulin 2.3 g/dL (2.4-3.5) L 01/04/18 01:02 Procalcitonin 1.38 ng/mL (<=0.10) H 01/01/18 17:58 TSH 10.740 mcIU/mL (0.340-5.600) H 01/04/18 08:30 Free T3 1.83 pg/mL (2.50-3.90) L 01/06/18 04:00 Total T3 0.59 ng/mL (0.87-1.78) L 01/06/18 04:00 Urine Protein >=300 mg/dL (Neg-Trace) H 01/04/18 08:10 Urine Glucose (UA) 100 mg/dL (Normal) H 01/04/18 08:10 Urine Microscopic WBC 3-5 per hpf (0-3) H 01/04/18 08:10 Ur Squamous Epith Cells Moderate per lpf (None-Few) H 01/04/18 08:10 - Diagnostic Findings CT scan - chest: report reviewed, image reviewed - Clinical Findings Intake & Output: Intake & Output 01/09/18 01/10/18 01/10/18 23:59 07:59 15:59 Intake Total 60 / 60 0 / 0 Balance 60 / 60 0 / 0 Weight 62.7 kg - VTE Documentation of Mechanical Device: Intermittent pneumatic compression device Consult Discharge Plan - Plan Referrals: Vladimir Chaidez MD [Primary Care Provider] -
[2018-01-10] MEDS ORDERED: Darbepoetin 100 MCG/0.5 ML SYRINGE SQ SCH (15:19)
[2018-01-10] MEDS: Cefepime HCl 1,000 MG in Water for inj. (sterile) 20 ML 10 ML IVP SCH (18:27)
--- NOTE | 2018-01-10 20:45 | Anesthesia Evaluation PreOp ---
Date of Encounter: 01/10/18 Time of Encounter: 21:26 - Past History Planned Operation: bronchoscopy Cardiac History: HTN, Hyperlipidemia, Other (troponin elevation (plateau) - cardiology consulted and of questionable significance; hx DVT) Pulmonary History: Former smoker (quit 40 years ago), COPD, Other (respiratory failure requiring BiPAP and high flow nasal canula during breaks from Bipap, patient failed conservative measures to alleviated mucous plugging, admitted with facial swelling; required emergency intubation for respiratory failure related to mucous plugging/pneumonia) [employer] History: Denies Any Significant HX Other Medical History: Renal (ESRD - dialysis today (01-10-18); been on dialysis for almost 3 years) Anesthesia History: No Prior Anesthetic Complications Alcohol Use: none Drug use: none Medications and Allergies Albuterol Sulfate [Ventolin Hfa] 2 puff IH Q4H PRN 10/12/16 [History] Allopurinol [Zyloprim] 100 mg PO DAILY 10/12/16 [History] Aspirin 81 mg PO DAILY 10/12/16 [History] Atorvastatin [Lipitor] 40 mg PO HS 10/12/16 [History] Budesonide/Formoterol 160/4.5 [Symbicort 160/4.5] 2 puff IH BIDR 10/12/16 [ History] Cholecalciferol (Vitamin D3) [Vitamin D3] 2,000 unit PO DAILY 10/12/16 [History] Furosemide [Lasix] 20 mg PO QPM 10/12/16 [History] Furosemide [Lasix] 40 mg PO QAM 10/12/16 [History] Levothyroxine [Synthroid] 25 mcg PO DAILY 01/14/17 [History] Metoprolol XL (24 HR) Succ [Toprol Xl] 50 mg PO DAILY 01/14/17 [History] Multivitamin [Multi-Day Vitamins] 1 tab PO DAILY 01/14/17 [History] Acetylcysteine [G-Waghha-d-Cysteine] 600 mg PO TID 03/11/17 [History] HYDROcodone/Acet 5/325 mg [Scotia 5-325 mg] 1 tab PO TID PRN 03/11/17 [History] Loratadine [Claritin] 10 mg PO DAILY 03/11/17 [History] Sevelamer [Renvela] 4,000 mg PO TIDWM 03/11/17 [History] Tizanidine HCl 4 mg PO TID PRN 03/11/17 [History] Losartan [Cozaar] 50 mg PO BID #60 tablet 03/14/17 [Rx] Pregabalin [Lyrica] 50 mg PO BID 11/22/17 [History] hydrALAZINE [HydrALAZINE] 50 mg PO BID #120 tablet 12/03/17 [Rx] B Complex W-C No.20/Folic Acid [Virt-Caps Softgel] 1 mg PO DAILY 01/01/18 [ History] amLODIPine [Norvasc] 5 mg PO BID 01/01/18 [History] 3 Allergy/AdvReac Type Severity Reaction Status Date / Time codeine Allergy Rash Verified 11/25/17 14:42 gabapentin Allergy Itching Verified 11/25/17 14:42 - Meds/Allergy Pre-op Review Medications Reviewed: Yes Allergies Reviewed: Yes Beta Blockers on Current Med List: Yes If Beta Blockers taken, Date/Time (Last Dose taken): 01-10-18 metoprolol 13:22 Anesthesia Results - Labs 01/10/18 03:55 01/10/18 03:55 - Imaging EKG: report reviewed, image reviewed (SINUS RHYTHM POSSIBLE LEFT ATRIAL ENLARGEMENT LEFT AXIS DEVIATION NONSPECIFIC ST & T-WAVE ABNORMALITY) Additional studies: TTE: Impressions: LVEF 60%. Normal LV chamber size and function. Mild concentric left ventricular hypertrophy. Mild left ventricular diastolic dysfunction. Normal right ventricular structure and function. Mild aortic regurgitation. No evidence of pulmonary hypertension. 01-05-18 Limited TTE: performed for elevated troponin - plateau and of unclear signficance (? related to respiratory status) Impressions: LVEF 60%. Normal LV chamber size and function. Mild concentric left ventricular hypertrophy. Anesthesia Exam Last Vital Signs Temp 97.6 F 01/10/18 20:24 Pulse 90 01/10/18 20:00 Resp 18 01/10/18 20:39 BP 158/82 01/10/18 20:00 Pulse Ox 89 01/10/18 20:39 - HEENT Pupil (Motor): Pupils equal, EOMI Mallampati: II Teeth: Edentulous Denture Type: Upper: Complete Oral Opening: Greater than 3 - [facility] [employer] LOC: Oriented - Cardiac Rhythm: Regular Murmur: None - Pulmonary Breath Sounds: bilateral Clear (on BiPAP) Respiratory Effort: Labored Anesthesia Assess/Plan ASA Score: 3 Modified [place] Scale for Level of Consciousness: Cooperative, oriented, and tranquil Anesthetic Plan: General, Precautions (Patient requiring BiPAP to maintain oxygenation; will need ETT for bronchoscopy to maintain PPV during procedure; extubation will hopefully be possible with resolution of mucous plug; HOWEVER, patient cannot be transported in elevator to upstairs GI pulm safely due to BiPAP dependence; so, likely propofol gtt with ETT in place is a possible option in the ICU versus patient being intubation and put under GETA in OR ( with no room in the schedule at 9 am at this time)) Monitoring Plan: Standard Monitors Recovery Plan: PACU
[2018-01-11] MEDS: Acetylcysteine 10% 2 ML INHSOL IH SCH ×7 (00:18→23:55)
[2018-01-11] MEDS: Ipratropium/Albuterol Neb 3 ML IH SCH ×5 (00:18→15:59)
[2018-01-11] MEDS: MethylPREDNISolone 40 MG/ML VIAL IVP SCH ×3 (00:24→17:44)
[2018-01-11] MEDS: *HR* Heparin 5,000 UNIT/ML VIAL SQ SCH ×3 (05:02→22:03)
[2018-01-11] MEDS: Levothyroxine 25 MCG TABLET PO SCH (05:02)
[2018-01-11 07:17] LABS: Hematocrit 25.7 % (35.3-44.9); Hemoglobin 8.3 g/dL (11.5-15.4); Mean Corpuscular HGB Conc 32.3 g/dL (31.6-35.5); Mean Corpuscular Hemoglobin 34.2 pg (28.0-33.3); Mean Corpuscular Volume 105.8 fL (83.0-100.0); Platelet Count 258 K/mcL (140-400); Red Blood Count 2.43 M/mcL (3.82-4.97); Red Cell Distribution Width 16.3 % (11.5-14.5)
--- NOTE | 2018-01-11 07:32 | Pulmonology Progress Note ---
<Bharat Garcia - Last Filed: 01/11/18 11:09> Date of Encounter: 01/11/18 Time of Encounter: 07:32 Assessment and Plan (1) Acute and chronic respiratory failure with hypoxia Current Visit: Yes Status: Acute likely secondary to hydrostatic edema and pneumonia with mucus plugging of bronchi continue supplemental oxygen, goal 89-92% BiPAP at night and PRN during day with breaks continue bronchodilators and steroids patient on Cefepime DAY 4 for pneumonia HD MWF to assist with volume removal (2) Mucus plugging of bronchi Current Visit: Yes Status: Acute continue bronchodilators q4 with chest percussion plan for bronchoscopy later today 01/11 as conservative measures to open left upper lobe have failed despite aggressive bronchopulmonary toileting - anesthesia tentative plan for possible intubation vs. PPV, otherwise patient is stable and can be transferred to step down based on post-procedure respiratory status recommend to continue incentive spirometry continue to encourage out of bed (3) Acute exacerbation of chronic obstructive pulmonary disease (COPD) Current Visit: Yes Status: Acute continue bronchodilators and IV solu-medrol 40 q8h BiPAP as needed for work of breathing (4) Pneumonia involving left lung Current Visit: Yes Status: Acute Cefepime DAY 4 plan to de-escalate antimicrobial based on culture sensitivity after bronch plan for bronchoscopy later today 01/11 blood culture x2 (01/01) - NGTD completed course of Vancomycin for facial cellulitis during hospital course Qualifiers: Pneumonia type: due to unspecified organism Lung location: lower lobe of lung Qualified Code(s): J18.1 - Lobar pneumonia, unspecified organism (5) ESRD on dialysis Current Visit: Yes Status: Chronic ESRD on HD MWF with Dr. Anthony nephrology consulted plan for [employer] today per schedule (6) Pulmonary edema Current Visit: Yes Status: Acute hydrostatic pulm edema [employer]ANT for volume removal patient is anuric, diuretics without utility Qualifiers: Chronicity: acute Qualified Code(s): J81.0 - Acute pulmonary edema (7) DVT prophylaxis Current Visit: Yes Status: Acute SCDs Subjective Principal diagnosis: Pneumonia, resp distress, mucus plugging Interval history: Patient seen and examined at bedside. No acute events overnight. Patient is tolerating BiPAP. Plan for bronchoscopy later today. Will be scheduled for dialysis as well. Patient tolerated her diet last night and has been NPO since midnight. She denies any difficulty breathing, chest pain, shortness of breath , abdominal pain, nausea or vomiting. Objective PUL Vital signs: Last Vital Signs Temp 97.5 F L 01/11/18 04:20 Pulse 64 01/11/18 06:00 Resp 14 01/11/18 07:24 BP 133/59 01/11/18 07:24 Pulse Ox 98 01/11/18 07:24 General appearance: no acute distress, alert Eyes: nonicteric ENT: oropharynx moist Neck: supple Effort: mildly labored Auscultation: bilateral: diminished breath sounds, rhonchi (L > R) Cardiovascular: regular rate and rhythm Gastrointestinal: normoactive bowel sounds, soft, non-tender, non-distended Integumentary: other (Fistula in the left forearm with palpable thrill and audible bruit) Extremities: no cyanosis, no edema, no clubbing, pink and warm, no ischemia or petechiae Musculoskeletal: no deformities, ROM normal normal mental status, non-focal exam, pupils equal and round, motor strength normal and symmetric mood appropriate, affect normal Results - Laboratory Findings CBC and BMP: 01/11/18 07:10 01/11/18 07:10 ABG ABG pH 7.44 pH Units (7.32-7.45) 01/08/18 09:48 ABG pCO2 48 mmHg (35-45) H 01/08/18 09:48 ABG pO2 59 mmHg (85-104) L 01/08/18 09:48 ABG O2 Saturation 91 % (95-98) L 01/08/18 09:48 PT/INR, D-dimer PT 10.9 Seconds (9.4-12.1) 01/01/18 11:29 D-Dimer 5201 ng/mLFEU (0-500) H 01/04/18 01:02 Abnormal lab findings: Abnormal lab results RBC 2.43 M/mcL (3.82-4.97) L 01/11/18 07:10 Hgb 8.3 g/dL (11.5-15.4) L 01/11/18 07:10 Hct 25.7 % (35.3-44.9) L 01/11/18 07:10 MCV 105.8 fL (83.0-100.0) H 01/11/18 07:10 MCH 34.2 pg (28.0-33.3) H 01/11/18 07:10 RDW 16.3 % (11.5-14.5) H 01/11/18 07:10 Lymphocytes # 0.4 K/mcL (0.6-4.6) L 01/10/18 03:55 Nucleated RBCs/100 WBC 0.4 /100 WBC (0) H 01/10/18 03:55 D-Dimer 5201 ng/mLFEU (0-500) H 01/04/18 01:02 ABG pCO2 48 mmHg (35-45) H 01/08/18 09:48 ABG pO2 59 mmHg (85-104) L 01/08/18 09:48 ABG HCO3 32 mEq/L (21-27) H 01/08/18 09:48 ABG Total CO2 34 mEq/L (20-26) H 01/08/18 09:48 ABG O2 Saturation 91 % (95-98) L 01/08/18 09:48 ABG Base Excess 7 mEq/L (-2 to 3) H 01/08/18 09:48 Sodium 134 mEq/L (136-145) L 01/10/18 03:55 Potassium 5.3 mEq/L (3.5-5.1) H 01/10/18 03:55 Carbon Dioxide 30 mEq/L (23-29) H 01/10/18 03:55 Creatinine 4.71 mg/dL (0.60-1.20) H 01/10/18 03:55 Est GFR ( Amer) 11 (> 60) L 01/10/18 03:55 Est GFR (Non-Af Amer) 9 (> 60) L 01/10/18 03:55 BUN/Creatinine Ratio 5 (6-26) L 01/10/18 03:55 Glucose 160 mg/dL (70-105) H 01/10/18 03:55 POC Glucose 110 mg/dL (58-89) H 01/08/18 13:04 Alkaline Phosphatase 144 Units/L (34-104) H 01/04/18 01:02 Troponin I 0.16 ng/mL (< 0.04) H* 01/05/18 16:00 Serum Total Protein 5.5 g/dL (6.4-8.9) L 01/04/18 01:02 Albumin 3.2 g/dL (3.5-5.7) L 01/04/18 01:02 Globulin 2.3 g/dL (2.4-3.5) L 01/04/18 01:02 Procalcitonin 1.38 ng/mL (<=0.10) H 01/01/18 17:58 TSH 10.740 mcIU/mL (0.340-5.600) H 01/04/18 08:30 Free T3 1.83 pg/mL (2.50-3.90) L 01/06/18 04:00 Total T3 0.59 ng/mL (0.87-1.78) L 01/06/18 04:00 Urine Protein >=300 mg/dL (Neg-Trace) H 01/04/18 08:10 Urine Glucose (UA) 100 mg/dL (Normal) H 01/04/18 08:10 Urine Microscopic WBC 3-5 per hpf (0-3) H 01/04/18 08:10 Ur Squamous Epith Cells Moderate per lpf (None-Few) H 01/04/18 08:10 - Clinical Findings Intake & Output: Intake & Output 01/10/18 01/10/18 01/11/18 15:59 23:59 07:59 Intake Total 240 / 240 610 / 610 Output Total 0 / 0 0 / 0 0 / 0 Balance 240 / 240 610 / 610 0 / 0 Weight 64 kg - VTE Documentation of Mechanical Device: Intermittent pneumatic compression device Consult Discharge Plan - Plan Referrals: Vladimir Chaidez MD [Primary Care Provider] - <Delon Lazo - Last Filed: 01/11/18 15:23> Date of Encounter: 01/11/18 Assessment and Plan (1) Acute and chronic respiratory failure with hypoxia Current Visit: Yes Status: Acute (2) Pneumonia involving left lung Current Visit: Yes Status: Acute Qualifiers: Pneumonia type: due to unspecified organism Lung location: lower lobe of lung Qualified Code(s): J18.1 - Lobar pneumonia, unspecified organism (3) Pulmonary edema Current Visit: Yes Status: Acute Qualifiers: Chronicity: acute Qualified Code(s): J81.0 - Acute pulmonary edema (4) ESRD on dialysis Current Visit: Yes Status: Chronic (5) Acute exacerbation of chronic obstructive pulmonary disease (COPD) Current Visit: Yes Status: Acute (6) Mucus plugging of bronchi Current Visit: Yes Status: Acute Objective PUL Vital signs: Last Vital Signs Temp 96.8 F L 01/11/18 13:40 Pulse 66 01/11/18 13:00 Resp 14 01/11/18 13:40 BP 109/56 01/11/18 14:55 Pulse Ox 92 01/11/18 13:00 Results - Laboratory Findings CBC and BMP: 01/11/18 07:10 01/11/18 07:10 ABG ABG pH 7.44 pH Units (7.32-7.45) 01/08/18 09:48 ABG pCO2 48 mmHg (35-45) H 01/08/18 09:48 ABG pO2 59 mmHg (85-104) L 01/08/18 09:48 ABG O2 Saturation 91 % (95-98) L 01/08/18 09:48 PT/INR, D-dimer PT 9.8 Seconds (9.4-12.1) 01/11/18 06:42 D-Dimer 5201 ng/mLFEU (0-500) H 01/04/18 01:02 Abnormal lab findings: Abnormal lab results RBC 2.43 M/mcL (3.82-4.97) L 01/11/18 07:10 Hgb 8.3 g/dL (11.5-15.4) L 01/11/18 07:10 Hct 25.7 % (35.3-44.9) L 01/11/18 07:10 MCV 105.8 fL (83.0-100.0) H 01/11/18 07:10 MCH 34.2 pg (28.0-33.3) H 01/11/18 07:10 RDW 16.3 % (11.5-14.5) H 01/11/18 07:10 Lymphocytes # 0.4 K/mcL (0.6-4.6) L 01/10/18 03:55 Nucleated RBCs/100 WBC 0.4 /100 WBC (0) H 01/10/18 03:55 D-Dimer 5201 ng/mLFEU (0-500) H 01/04/18 01:02 ABG pCO2 48 mmHg (35-45) H 01/08/18 09:48 ABG pO2 59 mmHg (85-104) L 01/08/18 09:48 ABG HCO3 32 mEq/L (21-27) H 01/08/18 09:48 ABG Total CO2 34 mEq/L (20-26) H 01/08/18 09:48 ABG O2 Saturation 91 % (95-98) L 01/08/18 09:48 ABG Base Excess 7 mEq/L (-2 to 3) H 01/08/18 09:48 Sodium 133 mEq/L (136-145) L 01/11/18 07:10 Potassium 5.7 mEq/L (3.5-5.1) H 01/11/18 07:10 Chloride 96 mEq/L (98-107) L 01/11/18 07:10 BUN 43 mg/dL (8-23) H 01/11/18 07:10 Creatinine 6.10 mg/dL (0.60-1.20) H 01/11/18 07:10 Est GFR ( Amer) 8 (> 60) L 01/11/18 07:10 Est GFR (Non-Af Amer) 7 (> 60) L 01/11/18 07:10 Glucose 132 mg/dL (70-105) H 01/11/18 07:10 POC Glucose 110 mg/dL (58-89) H 01/08/18 13:04 Alkaline Phosphatase 144 Units/L (34-104) H 01/04/18 01:02 Troponin I 0.16 ng/mL (< 0.04) H* 01/05/18 16:00 Serum Total Protein 5.5 g/dL (6.4-8.9) L 01/04/18 01:02 Albumin 3.2 g/dL (3.5-5.7) L 01/04/18 01:02 Globulin 2.3 g/dL (2.4-3.5) L 01/04/18 01:02 Procalcitonin 1.38 ng/mL (<=0.10) H 01/01/18 17:58 TSH 10.740 mcIU/mL (0.340-5.600) H 01/04/18 08:30 Free T3 1.83 pg/mL (2.50-3.90) L 01/06/18 04:00 Total T3 0.59 ng/mL (0.87-1.78) L 01/06/18 04:00 Urine Protein >=300 mg/dL (Neg-Trace) H 01/04/18 08:10 Urine Glucose (UA) 100 mg/dL (Normal) H 01/04/18 08:10 Urine Microscopic WBC 3-5 per hpf (0-3) H 01/04/18 08:10 Ur Squamous Epith Cells Moderate per lpf (None-Few) H 01/04/18 08:10 - Clinical Findings Intake & Output: Intake & Output 01/10/18 01/11/18 01/11/18 23:59 07:59 15:59 Intake Total 610 / 610 700 / 700 Output Total 0 / 0 0 / 0 0 / 0 Balance 610 / 610 0 / 0 700 / 700 Weight 64 kg - Attending Attestation I examined this patient and my medical decision-making was reviewed with the Resident Physician. I agree with the documented findings, disposition and treatment plan as described except to the extent set forth below. We independently had [id number] contact with the patient Patient seen and examined at bedside Labs, radiology, chart personally reviewed. Management was reviewed during multidisciplinary critical care rounds. Impression Acute on chronic hypoxic respiratory failure Pneumonia COPD with exacerbation Mucus plugging with lobar collapse Recs: Status post bronchoscopy which was notable for right lower lobe mucus impaction with tenacious mucus plugging was noted which cleared with suctioning this was also notable in the left upper lobe BAL were taken from both locations follow- up on culture results she responded very well to this procedure and oxygen requirements have been cut by 2/3 as she says is breathing much easier Recommend stopping ipratropium in the short-term because of how thick the mucoid impaction is and cont with albuterol for now Cont BPT Stable for transfer to [facility]
[2018-01-11 07:36] LABS: INR 0.9; Prothrombin Time 9.8 Seconds (9.4-12.1)
[2018-01-11 07:39] LABS: Potassium 5.7 mEq/L (3.5-5.1)
[2018-01-11] MEDS ORDERED: Propofol 500 MG/50 ML INFUS..BTL ONE (08:07)
[2018-01-11] MEDS ORDERED: *HR* Succinylcholine 200 MG/10 ML VIAL IVP ONE (08:15)
[2018-01-11] MEDS ORDERED: Dexamethasone 4 MG/ML VIAL ONE (08:15)
[2018-01-11] MEDS ORDERED: Ondansetron 4 MG/2 ML VIAL ONE (08:15)
[2018-01-11] MEDS ORDERED: Lidocaine -MPF 2% 2 ML VIAL ONE (08:15)
[2018-01-11] MEDS ORDERED: Lidocaine -MPF 4% 5 ML AMPUL ONE (08:15)
[2018-01-11] MEDS ORDERED: *HR* FentaNYL (PF) 100 MCG/2 ML VIAL ONE (08:19)
[2018-01-11] MEDS ORDERED: 0.9 % Sodium Chloride 250 ML IVC PRN ×3 (08:45→18:50)
--- NOTE | 2018-01-11 08:45 | Nephrology Progress Note ---
Date of Encounter: 01/11/18 Time of Encounter: 08:43 - Assessment and Plan (1) ESRD on dialysis Current Visit: Yes Status: Chronic The patient will undergo dialysis today. Her potassium is 5.7 so she will be dialyzed on a 2K bath. (2) Anemia in chronic kidney disease (CKD) Current Visit: No Status: Chronic Qualifiers: Chronic kidney disease stage: on chronic dialysis Qualified Code(s): N18.6 - End stage renal disease; D63.1 - Anemia in chronic kidney disease; D63.1 - Anemia in chronic kidney disease; Z99.2 - Dependence on renal dialysis; Z99.2 - Dependence on renal dialysis; Z99.2 - Dependence on renal dialysis; Z99.2 - Dependence on renal dialysis (3) Infection of nose Current Visit: Yes Status: Acute Subjective Principal diagnosis: Pneumonia Interval history: The patient has continued to require BiPAP to maintain oxygenation. Currently she is on nasal cannula. She says she is feeling relatively well. She does continue to have some coughing with some mild sputum production. She is scheduled for her usual dialysis today. Objective - Vital Signs Vital signs: Vital Signs Temp Pulse Resp BP Pulse Ox 01/11/18 08:01 96.3 F L 01/11/18 07:24 14 133/59 98 01/11/18 06:00 64 14 122/55 99 01/11/18 05:00 71 16 146/62 99 01/11/18 04:33 20 119/49 97 01/11/18 04:20 97.5 F L 67 14 119/49 93 01/11/18 03:00 73 16 124/53 99 01/11/18 02:00 73 17 112/47 95 01/11/18 01:00 82 20 136/58 89 01/11/18 00:19 17 132/57 95 01/11/18 00:00 80 20 132/57 86 01/10/18 23:33 96.7 F L 01/10/18 23:00 86 28 155/69 88 01/10/18 21:55 84 26 157/78 91 01/10/18 21:00 86 20 162/77 96 01/10/18 20:39 18 89 01/10/18 20:24 97.6 F 01/10/18 20:00 90 36 158/82 90 04/03/18 18:00 90 22 141/70 92 01/10/18 17:00 97.5 F L 84 22 149/68 88 01/10/18 16:00 86 20 131/59 89 01/10/18 15:56 16 92 01/10/18 15:55 121/59 01/10/18 15:00 84 20 128/60 91 01/10/18 14:00 90 22 145/68 89 01/10/18 13:00 91 23 138/60 94 01/10/18 12:00 82 19 154/69 100 01/10/18 11:24 17 136/53 98 01/10/18 11:00 97.8 F 82 18 136/53 99 01/10/18 10:00 73 18 130/54 99 01/10/18 08:44 78 26 150/70 99 Intake and Output 01/10/18 01/11/18 01/11/18 23:59 07:59 15:59 Intake Total 610 / 610 Output Total 0 / 0 0 / 0 Balance 610 / 610 0 / 0 Intake: IV Fluids Maxipime 1,000 MG In Water for inj. (sterile) 10 ML @ 150 mls/ hr IVP Q24H [facility] Rx#:[id number] Oral 600 / 600 Output: Urine 0 / 0 0 / 0 Other: Meal Dinner Percent of Meal Consumed 100% Weight 64 kg Patient Weight 01/11/18 23:59 Weight 64 kg - General Appearance Exam: Patient is alert and oriented. She is in no acute distress. Lungs bilateral rhonchi. Heart regular rate and rhythm. Abdomen was benign. There is some mild lower extremity swelling. There is a functioning AV access in the left upper extremity. - Lab 01/11/18 07:10 01/11/18 07:10 Most recent lab results ABG pH 7.44 pH Units (7.32-7.45) 01/08/18 09:48 ABG pCO2 48 mmHg (35-45) H 01/08/18 09:48 ABG pO2 59 mmHg (85-104) L 01/08/18 09:48 ABG HCO3 32 mEq/L (21-27) H 01/08/18 09:48 ABG O2 Saturation 91 % (95-98) L 01/08/18 09:48 Calcium 10.0 mg/dL (8.6-10.3) 01/11/18 07:10 Magnesium 2.2 mg/dL (1.6-2.6) 01/05/18 03:50 - VTE Documentation of Mechanical Device: Intermittent pneumatic compression device Consult Discharge Plan - Plan Referrals: Vladimir Chaidez MD [Primary Care Provider] -
[2018-01-11] MEDS ORDERED: methylPREDNISolone 125 MG/2 ML VIAL IVP ONE (08:52)
[2018-01-11] MEDS ORDERED: EPHEDrine 50 MG/ML VIAL ONE (10:36)
[2018-01-11] MEDS: Budesonide/Formoterol 160/4.5 MDI IH SCH ×2 (11:03→23:55)
[2018-01-11] MEDS ORDERED: *HR* Cisatracurium 10 MG/5 ML VIAL IV ONE (11:15)
--- NOTE | 2018-01-11 12:40 | Anesthesia Evaluation Post Op ---
Date of Encounter: 01/11/18 Time of Encounter: 12:39 - Vital Signs Vital Signs: Vital Signs/O2 Sat, Most Current Temp Pulse Resp BP Pulse Ox 97.5 F L 66 18 120/60 94 01/11/18 12:18 01/11/18 12:28 01/11/18 12:28 01/11/18 12:28 01/11/18 12:28 - Lungs Lungs: Clear Ascult./Percussion - Airway Airway: Non-obstructed - Cardiovascular Regular Rate - Mental Status Mental Status: Asleep with brisk response to light stimulation - Pain Pain Scale: 0 Pain Scale used: Numeric (1 - 10) - Nausea Vomiting Nausea Vomiting: Not Present - Hydration Hydration: NPO, Has not voided - Discharge PostOp Status: Transfer Patient to floor
[2018-01-11] MEDS ORDERED: 0.9 % Sodium Chloride 1,000 ML ONE (12:51)
--- NOTE | 2018-01-11 13:22 | Event Note ---
Date of Encounter: 01/11/18 Time of Encounter: 13:22 Patient returns from endocscopy suite on 4L oxymask. No reported complications from the procedure. Please see procedure note for further details. Cultures have been sent, continue current antibiotic regimen of Cefepime and plan for de- escalation. She reports significant improvement in breathing. She is getting ready for her dialysis at the moment. She has no other complaints. Denies any chest pain or worsening shortness of breath. On my exam she has increase aeration to bilateral lung marquez, continues to have some crackles/rhonchi on the left > right. Patient is stable for transfer to the floor 2A/2NE. 1345 Patient accepted for transfer from intensive care unit to med/surg floor by admitting hospitalist Dr. Ayers. Patient to complete dialysis prior to transfer. Patient remains in stable condition without significant respiratory distress. No further questions or concerns.
[2018-01-11] MEDS: hydrALAZINE 25 MG TABLET PO SCH ×2 (14:53→22:04)
[2018-01-11] MEDS: amLODIPine 5 MG TABLET PO SCH ×2 (14:53→22:03)
[2018-01-11] MEDS: Pregabalin 50 MG CAPSULE PO SCH ×2 (14:53→22:04)
[2018-01-11] MEDS: Loratadine 10 MG TABLET PO SCH (17:40)
[2018-01-11] MEDS: Renal Vitamin 1 MG CAPSULE PO SCH (17:41)
[2018-01-11] MEDS: Multivit/Ca/Min/Fe/FA 1 TAB TABLET PO SCH (17:41)
[2018-01-11] MEDS: Aspirin 81 MG TAB.CHEW PO SCH (17:41)
[2018-01-11] MEDS: Metoprolol XL (24 HR) Succ 50 MG TAB.ER.24H PO SCH (17:41)
[2018-01-11] MEDS: Cholecalciferol (D-3) 1,000 UNIT TABLET PO SCH (17:41)
[2018-01-11] MEDS: Cefepime HCl 1,000 MG in Water for inj. (sterile) 20 ML 10 ML IVP SCH (17:44)
[2018-01-11] MEDS ORDERED: Naloxone 0.4 MG/ML INJ IVP PRN (18:50)
[2018-01-11] MEDS ORDERED: Acetaminophen 325 MG TABLET PO PRN (18:50)
[2018-01-11] MEDS ORDERED: MOM Conc 10 ML UD.LIQ PO PRN (18:50)
[2018-01-11] MEDS ORDERED: tiZANidine 4 MG TABLET PO PRN (18:50)
[2018-01-11] MEDS ORDERED: *HR* HYDROcodone/Acet 5/325 mg TABLET PO PRN (18:50)
[2018-01-11] MEDS ORDERED: 0.9 % Sodium Chloride 1,000 ML PRIME SCH (18:50)
[2018-01-11] MEDS ORDERED: *HR* LORazepam 2 MG/ML VIAL IVP PRN (18:50)
[2018-01-11] MEDS ORDERED: Albuterol 2.5 MG/3 ML NEBULIZER IH SCH (20:00)
[2018-01-11] MEDS: Albuterol 2.5 MG/3 ML NEBULIZER IH SCH ×2 (20:34→23:55)
[2018-01-12] MEDS: MethylPREDNISolone 40 MG/ML VIAL IVP SCH ×2 (00:09→08:44)
[2018-01-12] MEDS: Albuterol 2.5 MG/3 ML NEBULIZER IH SCH ×6 (04:26→23:53)
[2018-01-12] MEDS: Acetylcysteine 10% 2 ML INHSOL IH SCH ×6 (04:26→23:54)
[2018-01-12 04:30] LABS: Basophils % 0.2 %; Hematocrit 27.1 % (35.3-44.9); Hemoglobin 8.6 g/dL (11.5-15.4); Immature Granulocytes % 2.4 % (0-4); Lymphocytes # 0.3 K/mcL (0.6-4.6); Mean Corpuscular HGB Conc 31.7 g/dL (31.6-35.5); Mean Corpuscular Hemoglobin 33.9 pg (28.0-33.3); Mean Corpuscular Volume 106.7 fL (83.0-100.0); Mean Platelet Volume 10.4 fL (9.4-12.4); Monocytes # 0.3 K/mcL (0.0-1.3); Monocytes % 5.2 %; Neutrophils # 5.8 K/mcL (1.6-8.9); Nucleated Red Blood Cells 0.9 /100 WBC (0); Platelet Count 301 K/mcL (140-400); Red Blood Count 2.54 M/mcL (3.82-4.97); Red Cell Distribution Width 16.6 % (11.5-14.5); Segmented Neutrophils % 88.2 %
[2018-01-12 04:49] LABS: Calcium 9.4 mg/dL (8.6-10.3); Potassium 4.1 mEq/L (3.5-5.1)
[2018-01-12] MEDS: Levothyroxine 25 MCG TABLET PO SCH (06:19)
[2018-01-12] MEDS: *HR* Heparin 5,000 UNIT/ML VIAL SQ SCH ×3 (06:19→20:33)
[2018-01-12] MEDS: Budesonide/Formoterol 160/4.5 MDI IH SCH ×2 (07:58→19:53)
[2018-01-12] MEDS: Renal Vitamin 1 MG CAPSULE PO SCH (08:45)
[2018-01-12] MEDS: Multivit/Ca/Min/Fe/FA 1 TAB TABLET PO SCH (08:45)
[2018-01-12] MEDS: Metoprolol XL (24 HR) Succ 50 MG TAB.ER.24H PO SCH (08:45)
[2018-01-12] MEDS: amLODIPine 5 MG TABLET PO SCH ×2 (08:45→20:35)
[2018-01-12] MEDS: Loratadine 10 MG TABLET PO SCH (08:46)
[2018-01-12] MEDS: Pregabalin 50 MG CAPSULE PO SCH ×2 (08:46→20:35)
[2018-01-12] MEDS: Aspirin 81 MG TAB.CHEW PO SCH (08:46)
[2018-01-12] MEDS: hydrALAZINE 25 MG TABLET PO SCH ×2 (08:46→20:34)
[2018-01-12] MEDS: Cholecalciferol (D-3) 1,000 UNIT TABLET PO SCH (08:46)
--- NOTE | 2018-01-12 09:52 | Pulmonology Progress Note ---
Date of Encounter: 01/12/18 Time of Encounter: 09:50 Assessment and Plan (1) Acute and chronic respiratory failure with hypoxia Current Visit: Yes Status: Acute This is secondary to advanced COPD complicated by recurrent pneumonia. Continue supplemental oxygen to keep saturation greater than 89% she will need incentive spirometry out of bed to chair ambulation an effort to mitigate VQ mismatching on the hospital (2) Pneumonia involving left lung Current Visit: Yes Status: Acute Patient is on antimicrobials with plan de-escalate based upon culture sensitivity from bronchoscopy Qualifiers: Pneumonia type: due to unspecified organism Lung location: lower lobe of lung Qualified Code(s): J18.1 - Lobar pneumonia, unspecified organism (3) Pulmonary edema Current Visit: Yes Status: Acute Hydrostatic pulmonary edema which should improve with volume removal with dialysis Qualifiers: Chronicity: acute Qualified Code(s): J81.0 - Acute pulmonary edema (4) ESRD on dialysis Current Visit: Yes Status: Chronic Nephrology following [employer] per schedule (5) Acute exacerbation of chronic obstructive pulmonary disease (COPD) Current Visit: Yes Status: Acute She is on bronchodilators and steroids for this continue BiPAP as needed for work of breathing (6) Mucus plugging of bronchi Current Visit: Yes Status: Acute Status post bronchoscopy with good results as far as suctioning of mucous plugging of the right lower lobe and left upper lobe We are using aggressive bronchopulmonary toileting focal percussor Accucap therapy out of bed to chair Stable for transfer out of ICU Subjective Principal diagnosis: Pneumonia, resp distress, mucus plugging Interval history: Status post bronchoscopy yesterday without untoward effect. She feels much better today breathing has become much less labored she has been weaned down to nasal cannula oxygen between 3 and 4 L Objective PUL Vital signs: Last Vital Signs Temp 97.7 F 01/12/18 07:03 Pulse 73 01/12/18 06:00 Resp 14 01/12/18 08:00 BP 99/44 01/12/18 06:00 Pulse Ox 96 01/12/18 08:00 General appearance: no acute distress Auscultation: bilateral: rhonchi Cardiovascular: regular rate and rhythm Gastrointestinal: normoactive bowel sounds, absent bowel sounds Musculoskeletal: no deformities normal mental status, non-focal exam mood appropriate Results - Laboratory Findings CBC and BMP: 01/12/18 03:44 01/12/18 03:44 ABG ABG pH 7.44 pH Units (7.32-7.45) 01/08/18 09:48 ABG pCO2 48 mmHg (35-45) H 01/08/18 09:48 ABG pO2 59 mmHg (85-104) L 01/08/18 09:48 ABG O2 Saturation 91 % (95-98) L 01/08/18 09:48 PT/INR, D-dimer PT 9.8 Seconds (9.4-12.1) 01/11/18 06:42 D-Dimer 5201 ng/mLFEU (0-500) H 01/04/18 01:02 Abnormal lab findings: Abnormal lab results RBC 2.54 M/mcL (3.82-4.97) L 01/12/18 03:44 Hgb 8.6 g/dL (11.5-15.4) L 01/12/18 03:44 Hct 27.1 % (35.3-44.9) L 01/12/18 03:44 MCV 106.7 fL (83.0-100.0) H 01/12/18 03:44 MCH 33.9 pg (28.0-33.3) H 01/12/18 03:44 RDW 16.6 % (11.5-14.5) H 01/12/18 03:44 Lymphocytes # 0.3 K/mcL (0.6-4.6) L 01/12/18 03:44 Nucleated RBCs/100 WBC 0.9 /100 WBC (0) H 01/12/18 03:44 D-Dimer 5201 ng/mLFEU (0-500) H 01/04/18 01:02 ABG pCO2 48 mmHg (35-45) H 01/08/18 09:48 ABG pO2 59 mmHg (85-104) L 01/08/18 09:48 ABG HCO3 32 mEq/L (21-27) H 01/08/18 09:48 ABG Total CO2 34 mEq/L (20-26) H 01/08/18 09:48 ABG O2 Saturation 91 % (95-98) L 01/08/18 09:48 ABG Base Excess 7 mEq/L (-2 to 3) H 01/08/18 09:48 Chloride 94 mEq/L (98-107) L 01/12/18 03:44 Carbon Dioxide 34 mEq/L (23-29) H 01/12/18 03:44 Creatinine 3.43 mg/dL (0.60-1.20) H 01/12/18 03:44 Est GFR ( Amer) 16 (> 60) L 01/12/18 03:44 Est GFR (Non-Af Amer) 13 (> 60) L 01/12/18 03:44 Glucose 143 mg/dL (70-105) H 01/12/18 03:44 POC Glucose 110 mg/dL (58-89) H 01/08/18 13:04 Alkaline Phosphatase 144 Units/L (34-104) H 01/04/18 01:02 Troponin I 0.16 ng/mL (< 0.04) H* 01/05/18 16:00 Serum Total Protein 5.5 g/dL (6.4-8.9) L 01/04/18 01:02 Albumin 3.2 g/dL (3.5-5.7) L 01/04/18 01:02 Globulin 2.3 g/dL (2.4-3.5) L 01/04/18 01:02 Procalcitonin 1.38 ng/mL (<=0.10) H 01/01/18 17:58 TSH 10.740 mcIU/mL (0.340-5.600) H 01/04/18 08:30 Free T3 1.83 pg/mL (2.50-3.90) L 01/06/18 04:00 Total T3 0.59 ng/mL (0.87-1.78) L 01/06/18 04:00 Urine Protein >=300 mg/dL (Neg-Trace) H 01/04/18 08:10 Urine Glucose (UA) 100 mg/dL (Normal) H 01/04/18 08:10 Urine Microscopic WBC 3-5 per hpf (0-3) H 01/04/18 08:10 Ur Squamous Epith Cells Moderate per lpf (None-Few) H 01/04/18 08:10 - Clinical Findings Intake & Output: Intake & Output 01/11/18 01/12/18 01/12/18 23:59 07:59 15:59 Intake Total 490 / 490 Output Total 2600 / 2600 0 / 0 Balance -2110 / -2110 0 / 0 Weight 65.3 kg - VTE Documentation of Mechanical Device: Intermittent pneumatic compression device Consult Discharge Plan - Plan Referrals: Vladimir Chaidez MD [Primary Care Provider] -
--- NOTE | 2018-01-12 12:05 | Nephrology Progress Note ---
Date of Encounter: 01/12/18 Time of Encounter: 11:20 - Assessment and Plan (1) ESRD on dialysis Current Visit: Yes Status: Chronic S/P bronch with mucous plugging. No HD today, keeping MWF schedule. Subjective Principal diagnosis: Pneumonia, resp distress, mucus plugging Interval history: S/P bronch mucous plugs. Sitting up in chair, states breathing easier. No new complaints. Objective - Vital Signs Vital signs: Vital Signs Temp Pulse Resp BP Pulse Ox 01/12/18 08:00 14 96 01/12/18 07:03 97.7 F 01/12/18 06:00 73 14 99/44 93 01/12/18 04:26 16 93 01/12/18 04:00 98.1 F 87 01/12/18 02:00 87 16 124/55 93 01/12/18 00:35 98.0 F 01/12/18 00:00 82 22 132/57 98 01/11/18 23:55 16 92 01/11/18 22:00 84 18 107/53 93 01/11/18 20:36 18 94 01/11/18 20:00 97.6 F 81 24 114/46 94 01/11/18 18:11 125/52 01/11/18 18:00 83 18 79/43 94 01/11/18 17:37 89 18 101/58 94 01/11/18 16:55 97.4 F L 12 100/42 01/11/18 16:54 77 16 109/57 98 01/11/18 16:40 105/37 01/11/18 16:25 107/68 01/11/18 16:10 109/57 01/11/18 15:59 16 96 01/11/18 15:55 98/48 01/11/18 15:43 96.0 F L 01/11/18 15:40 96/40 01/11/18 15:29 71 16 81/48 96 01/11/18 15:25 81/48 01/11/18 15:10 94/52 01/11/18 14:55 109/56 01/11/18 14:40 116/60 01/11/18 14:25 130/67 01/11/18 14:10 127/68 01/11/18 13:55 132/69 01/11/18 13:40 96.8 F L 14 126/67 01/11/18 13:00 96.8 F L 66 20 131/69 92 01/11/18 12:48 97.4 F L 63 12 132/67 94 01/11/18 12:38 63 18 127/65 96 01/11/18 12:28 66 18 120/60 94 01/11/18 12:18 97.5 F L 66 16 118/61 95 Intake and Output 01/11/18 01/12/18 01/12/18 23:59 07:59 15:59 Intake Total 490 / 490 240 / 240 Output Total 2600 / 2600 0 / 0 Balance -2110 / -2110 0 / 0 240 / 240 Intake: IV Fluids Maxipime 1,000 MG In Water for inj. (sterile) 10 ML @ 150 mls/ hr IVP Q24H [facility] Rx#:[id number] Oral 480 / 480 240 / 240 Output: Urine 0 / 0 0 / 0 Total Dialysis (HD) Output 2600 / 2600 Other: Meal Dinner Breakfast Percent of Meal Consumed 100% Weight 65.3 kg Hemodialysis Net Fluid Removed 2000 (mL) Patient Weight 01/12/18 23:59 Weight 65.3 kg - General Appearance General appearance: Present: well-developed, well-nourished, appears started age EENT: Present: mucous membranes moist Neck: Present: no JVD Respiratory: Present: clear Cardiology: Present: edema, regular rate, regular rhythm Additional Comments: mild pitting, shriveled skin. Gastrointestinal: Present: normoactive bowel sounds, no tenderness Integumentary: Present: warm and dry Neurologic: Present: alert and oriented x3 - Lab 01/12/18 03:44 01/12/18 03:44 Most recent lab results ABG pH 7.44 pH Units (7.32-7.45) 01/08/18 09:48 ABG pCO2 48 mmHg (35-45) H 01/08/18 09:48 ABG pO2 59 mmHg (85-104) L 01/08/18 09:48 ABG HCO3 32 mEq/L (21-27) H 01/08/18 09:48 ABG O2 Saturation 91 % (95-98) L 01/08/18 09:48 Calcium 9.4 mg/dL (8.6-10.3) 01/12/18 03:44 Magnesium 2.2 mg/dL (1.6-2.6) 01/05/18 03:50 - VTE Documentation of Mechanical Device: Intermittent pneumatic compression device Consult Discharge Plan - Plan Referrals: Vladimir Chaidez MD [Primary Care Provider] -
[2018-01-12 13:11] LABS: Appearance of Body Fluid Cloudy (Clear); Volume of Body Fluid 17 mL
[2018-01-12 13:17] LABS: Appearance of Body Fluid Clear (Clear); Volume of Body Fluid 14 mL
[2018-01-12] MEDS: Cefepime HCl 1,000 MG in Water for inj. (sterile) 20 ML 10 ML IVP SCH (17:50)
[2018-01-12] MEDS: Sennosides/Docusate Sodium TABLET PO SCH ×2 (20:34→20:45)
[2018-01-13 03:48] LABS: Hematocrit 25.2 % (35.3-44.9); Hemoglobin 7.9 g/dL (11.5-15.4); Mean Corpuscular HGB Conc 31.3 g/dL (31.6-35.5); Mean Corpuscular Hemoglobin 33.8 pg (28.0-33.3); Mean Corpuscular Volume 107.7 fL (83.0-100.0); Mean Platelet Volume 10.2 fL (9.4-12.4); Red Blood Count 2.34 M/mcL (3.82-4.97)
[2018-01-13] MEDS: Albuterol 2.5 MG/3 ML NEBULIZER IH SCH ×6 (04:48→23:42)
[2018-01-13] MEDS: Acetylcysteine 10% 2 ML INHSOL IH SCH ×6 (04:49→23:43)
[2018-01-13 05:26] LABS: Calcium 9.2 mg/dL (8.6-10.3); Potassium 4.7 mEq/L (3.5-5.1)
[2018-01-13] MEDS: *HR* Heparin 5,000 UNIT/ML VIAL SQ SCH ×3 (05:32→20:20)
[2018-01-13] MEDS: Levothyroxine 25 MCG TABLET PO SCH (05:32)
[2018-01-13] MEDS ORDERED: 0.9 % Sodium Chloride 2,000 ML ONE (07:15)
[2018-01-13] MEDS: Budesonide/Formoterol 160/4.5 MDI IH SCH ×2 (07:35→19:40)
[2018-01-13] MEDS ORDERED: 0.9 % Sodium Chloride 250 ML IVC PRN (08:06)
[2018-01-13] MEDS ORDERED: 0.9 % Sodium Chloride 1,000 ML PRIME SCH (08:15)
[2018-01-13] MEDS: predniSONE 20 MG TABLET PO SCH (08:23)
[2018-01-13] MEDS: Pregabalin 50 MG CAPSULE PO SCH ×2 (08:23→20:19)
[2018-01-13] MEDS: Multivit/Ca/Min/Fe/FA 1 TAB TABLET PO SCH (08:23)
[2018-01-13] MEDS: Aspirin 81 MG TAB.CHEW PO SCH (08:24)
[2018-01-13] MEDS: Sennosides/Docusate Sodium TABLET PO SCH ×2 (08:24→20:20)
[2018-01-13] MEDS: Loratadine 10 MG TABLET PO SCH (08:24)
[2018-01-13] MEDS: Renal Vitamin 1 MG CAPSULE PO SCH (08:24)
[2018-01-13] MEDS: Cholecalciferol (D-3) 1,000 UNIT TABLET PO SCH (08:24)
--- NOTE | 2018-01-13 11:10 | Nephrology Progress Note ---
Date of Encounter: 01/13/18 Time of Encounter: 10:20 - Assessment and Plan (1) ESRD on dialysis Current Visit: Yes Status: Chronic S/P bronch with mucous plugging. HD today, keeping MWF schedule. Orders given. Subjective Principal diagnosis: Pneumonia, resp distress, mucus plugging Interval history: Seen on HD, states breathing easier. No new complaints. Objective - Vital Signs Vital signs: Vital Signs Temp Pulse Resp BP Pulse Ox 01/13/18 06:37 97.9 F 70 16 120/52 96 01/13/18 04:49 16 97 01/13/18 03:26 98.3 F 71 15 136/85 97 01/13/18 00:24 98.4 F 78 18 121/57 97 01/12/18 23:34 18 75 01/12/18 20:17 98.8 F 88 18 123/37 95 01/12/18 19:54 14 97 01/12/18 15:56 18 99 01/12/18 15:30 98.6 F 85 16 151/57 98 01/12/18 12:21 97.5 F L 01/12/18 12:00 14 96 Intake and Output 01/12/18 01/13/18 01/13/18 23:59 07:59 15:59 Intake Total 480 / 480 Output Total 0 / 0 Balance 480 / 480 Intake: Oral 480 / 480 Output: Urine 0 / 0 Other: Meal Breakfast Percent of Meal Consumed 100% # Voids 0 Weight 63.6 kg Patient Weight 01/13/18 23:59 Weight 63.6 kg - General Appearance General appearance: Present: well-developed, well-nourished, appears started age EENT: Present: mucous membranes moist Neck: Present: no JVD Respiratory: Present: rhonchi Cardiology: Present: edema, regular rate, regular rhythm Gastrointestinal: Present: normoactive bowel sounds, no tenderness Integumentary: Present: warm and dry Neurologic: Present: alert and oriented x3 - Lab 01/13/18 04:00 01/13/18 03:34 Most recent lab results ABG pH 7.44 pH Units (7.32-7.45) 01/08/18 09:48 ABG pCO2 48 mmHg (35-45) H 01/08/18 09:48 ABG pO2 59 mmHg (85-104) L 01/08/18 09:48 ABG HCO3 32 mEq/L (21-27) H 01/08/18 09:48 ABG O2 Saturation 91 % (95-98) L 01/08/18 09:48 Calcium 9.2 mg/dL (8.6-10.3) 01/13/18 03:34 Magnesium 2.2 mg/dL (1.6-2.6) 01/05/18 03:50 - VTE Documentation of Mechanical Device: Intermittent pneumatic compression device Consult Discharge Plan - Plan Referrals: Vladimir Chaidez MD [Primary Care Provider] - 01/20/18 3:00 pm
[2018-01-13 12:16] LABS: Hematocrit 27.7 % (35.3-44.9); Hemoglobin 8.8 g/dL (11.5-15.4)
--- NOTE | 2018-01-13 13:55 | Internal Med Progress Note ---
Date of Encounter: 01/13/18 Time of Encounter: 13:53 - Assessment and plan (1) DVT prophylaxis Current Visit: Yes Status: Acute Assessment and plan: Heparin SQ (2) HCAP (healthcare-associated pneumonia) Current Visit: No Status: Suspected Assessment and plan: Continue Cefepime (Day 07/23) Will de-escalate depending on culture sensitivity from bronchoscopy s/p bronchoscopy on 01/11/18 clinically improving will continue titrate down O2 supplementation as tolerated PT/OT evaluation recommended inpatient rehab (3) HTN (hypertension) Current Visit: Yes Status: Chronic Assessment and plan: BP within acceptable range continue home medications will closely monitor BP Qualifiers: Hypertension type: secondary to other renal disorders Qualified Code(s): I15.1 - Hypertension secondary to other renal disorders; N28.89 - Other specified disorders of kidney and ureter; N28.89 - Other specified disorders of kidney and ureter (4) Facial swelling Current Visit: Yes Status: Resolved Assessment and plan: resolved finished 7 days of IV vancomycin (5) Cellulitis and abscess of face Current Visit: Yes Status: Resolved Assessment and plan: resolved finished 7 days of IV vancomycin (6) Acute encephalopathy Current Visit: Yes Status: Resolved Assessment and plan: mental status back to baseline (7) Pulmonary edema Current Visit: Yes Status: Acute Assessment and plan: improving continue HD as per nephro Qualifiers: Chronicity: acute Qualified Code(s): J81.0 - Acute pulmonary edema (8) Acute respiratory failure with hypoxia Current Visit: Yes Status: Acute Assessment and plan: Secondary to advanced COPD complicated by PNA continue O2 supplementation incentive spirometry IV abx systemic steroids bipap at bedtime and as needed during the day closely monitor respiratory status monitor O2 sat, goal O2 sat: 88-92% (9) Acute exacerbation of chronic obstructive pulmonary disease (COPD) Current Visit: Yes Status: Acute Assessment and plan: as listed above (10) End stage renal disease on dialysis Current Visit: Yes Status: Chronic Assessment and plan: nephrology input appreciated continue HD (MWF) - Time Spent With Patient Total time spent is greater than 50% in coordination of care (as documented) at patient's floor/unit and/or counseling patient: - Subjective Interval history: Pt seen and examined at bedside. s/p HD today (01/13/18) Currently saturating well on 4L NC and reports of using 2-3L at home pt was transferred from the ICU overnight. - Constitutional Vitals: Temp Pulse Resp BP Pulse Ox 98.1 F 70 20 117/59 95 01/13/18 13:37 01/13/18 06:37 01/13/18 13:37 01/13/18 13:37 01/13/18 07:34 General appearance: Present: cooperative, A&O X 3, pleasant, no acute distress, answers questions appropriately - Head Head exam: Present: atraumatic, normocephalic - Eye Eye exam: Present: conjuntiva pink, sclera anicteric - Respiratory Respiratory exam: Absent: rales, respiratory distress, wheezes (equal air entry bilatrally ) - Cardiovascular Cardiovascular exam: Present: RRR, +S1, +S2. Absent: diastolic murmur, gallop, rubs, systolic murmur - GI/Abdominal GI/Abdominal exam: Present: normal bowel sounds, soft, no peritoneal signs. Absent: distended, tenderness - Extremities Exam Extremities exam: Present: pedal edema, warm, radial pulses palpable and symmetrical. Absent: calf tenderness, tenderness - Neurological Exam Neurological exam: Present: oriented X3 Internal Medicine: Result - Labs CBC & Chem 7: 01/13/18 11:43 01/13/18 03:34 Labs: Short CBC 01/13/18 01/13/18 Range/Units 04:00 11:43 WBC 6.8 (4.3-11.1) K/mcL Hgb 7.9 L 8.8 L (11.5-15.4) g/dL Hct 25.2 L 27.7 L (35.3-44.9) % Plt Count 327 (140-400) K/mcL BMP 01/13/18 03:34 Sodium 137 Potassium 4.7 Chloride 96 L Carbon Dioxide 34 H BUN 41 H Creatinine 4.99 H Glucose 108 H Calcium 9.2 - ABG Interpretation ABG results: ABG ABG pH 7.44 pH Units (7.32-7.45) 01/08/18 09:48 ABG pCO2 48 mmHg (35-45) H 01/08/18 09:48 ABG pO2 59 mmHg (85-104) L 01/08/18 09:48 ABG O2 Saturation 91 % (95-98) L 01/08/18 09:48 PT/INR, D-dimer PT 9.8 Seconds (9.4-12.1) 01/11/18 06:42 D-Dimer 5201 ng/mLFEU (0-500) H 01/04/18 01:02 - VTE Documentation of Mechanical Device: Intermittent pneumatic compression device Consult Discharge Plan - Plan Referrals: Vladimir Chaidez MD [Primary Care Provider] - 01/20/18 3:00 pm
[2018-01-13] MEDS: hydrALAZINE 25 MG TABLET PO SCH ×2 (13:57→20:20)
[2018-01-13] MEDS: amLODIPine 5 MG TABLET PO SCH ×2 (13:58→20:20)
[2018-01-13] MEDS: Metoprolol XL (24 HR) Succ 50 MG TAB.ER.24H PO SCH (14:00)
[2018-01-13] MEDS: Cefepime HCl 1,000 MG in Water for inj. (sterile) 20 ML 10 ML IVP SCH (17:13)
[2018-01-13 23:17] LABS: HSV Source BAL LUL; HSV Source BAL RLL
[2018-01-14] MEDS: Acetylcysteine 10% 2 ML INHSOL IH SCH ×6 (03:31→23:49)
[2018-01-14] MEDS: Albuterol 2.5 MG/3 ML NEBULIZER IH SCH ×6 (03:31→23:49)
[2018-01-14 04:13] LABS: Basophils % 0.5 %; Eosinophils % 0.3 %; Hematocrit 27.7 % (35.3-44.9); Hemoglobin 8.7 g/dL (11.5-15.4); Immature Granulocytes % 4.9 % (0-4); Lymphocytes # 1.2 K/mcL (0.6-4.6); Lymphocytes % 15.3 %; Mean Corpuscular HGB Conc 31.4 g/dL (31.6-35.5); Mean Corpuscular Volume 108.2 fL (83.0-100.0); Mean Platelet Volume 10.2 fL (9.4-12.4); Monocytes # 0.9 K/mcL (0.0-1.3); Monocytes % 11.5 %; Neutrophils # 5.4 K/mcL (1.6-8.9); Platelet Count 286 K/mcL (140-400); Red Blood Count 2.56 M/mcL (3.82-4.97); Red Cell Distribution Width 17.2 % (11.5-14.5); Segmented Neutrophils % 67.5 %
[2018-01-14 04:32] LABS: Calcium 9.5 mg/dL (8.6-10.3); Magnesium 2.2 mg/dL (1.6-2.6); Phosphorous 2.5 mg/dL (2.7-4.5); Potassium 4.4 mEq/L (3.5-5.1)
[2018-01-14] MEDS: Levothyroxine 25 MCG TABLET PO SCH (05:24)
[2018-01-14] MEDS: *HR* Heparin 5,000 UNIT/ML VIAL SQ SCH ×3 (05:24→21:36)
[2018-01-14] MEDS: Budesonide/Formoterol 160/4.5 MDI IH SCH ×2 (07:27→19:54)
--- NOTE | 2018-01-14 08:52 | Nephrology Progress Note ---
Date of Encounter: 01/14/18 Time of Encounter: 08:40 - Assessment and Plan (1) ESRD on dialysis Current Visit: Yes Status: Chronic S/P bronch with mucous plugging. Increased respiratory effort this morning. No HD today, keeping MWF schedule. Subjective Principal diagnosis: Pneumonia, resp distress, mucus plugging Interval history: Sitting up in chair, Tachypneic. Admits increased LAKISHA this AM. Nursing notified with regards to multiple bronchs, mucous plugging. States will notify hospitalist. Objective - Vital Signs Vital signs: Vital Signs Temp Pulse Resp BP Pulse Ox 01/14/18 07:48 98.0 F 74 16 141/80 91 01/14/18 07:34 18 97 01/14/18 04:18 98.1 F 88 18 144/70 92 01/14/18 03:31 18 94 01/13/18 23:47 98.1 F 88 16 120/55 97 01/13/18 23:34 16 95 01/13/18 19:39 18 91 01/13/18 19:01 99.4 F 86 18 114/51 90 01/13/18 16:10 97.9 F 73 16 113/55 95 01/13/18 15:16 16 93 01/13/18 13:37 98.1 F 20 117/59 01/13/18 13:10 103/51 01/13/18 12:55 102/51 01/13/18 12:40 103/50 01/13/18 12:25 110/51 01/13/18 12:10 96/47 01/13/18 11:55 106/49 01/13/18 11:40 99/49 01/13/18 11:25 103/59 01/13/18 11:10 116/46 01/13/18 10:55 102/53 01/13/18 10:40 108/59 01/13/18 10:25 108/50 01/13/18 10:10 97.9 F 20 102/50 Intake and Output 01/13/18 01/14/18 01/14/18 23:59 07:59 15:59 Intake Total 480 / 480 Output Total 0 / 0 Balance 0 / 0 480 / 480 Intake: Oral 480 / 480 Output: Urine 0 / 0 Other: Meal Breakfast Percent of Meal Consumed 70% Weight 61.235 kg Patient Weight 01/14/18 23:59 Weight 61.235 kg - General Appearance General appearance: Present: well-developed, well-nourished, appears started age EENT: Present: mucous membranes moist Neck: Present: no JVD Cardiology: Present: edema, regular rate, regular rhythm Additional Comments: mild Gastrointestinal: Present: normoactive bowel sounds, no tenderness Integumentary: Present: warm and dry Neurologic: Present: alert and oriented x3 - Lab 01/14/18 03:43 01/14/18 03:43 Most recent lab results ABG pH 7.44 pH Units (7.32-7.45) 01/08/18 09:48 ABG pCO2 48 mmHg (35-45) H 01/08/18 09:48 ABG pO2 59 mmHg (85-104) L 01/08/18 09:48 ABG HCO3 32 mEq/L (21-27) H 01/08/18 09:48 ABG O2 Saturation 91 % (95-98) L 01/08/18 09:48 Calcium 9.5 mg/dL (8.6-10.3) 01/14/18 03:43 Phosphorus 2.5 mg/dL (2.7-4.5) L 01/14/18 03:43 Magnesium 2.2 mg/dL (1.6-2.6) 01/14/18 03:43 - VTE Documentation of Mechanical Device: Intermittent pneumatic compression device Consult Discharge Plan - Plan Referrals: Vladimir Chaidez MD [Primary Care Provider] - 01/20/18 3:00 pm
[2018-01-14] MEDS: Renal Vitamin 1 MG CAPSULE PO SCH (09:04)
[2018-01-14] MEDS: Loratadine 10 MG TABLET PO SCH (09:04)
[2018-01-14] MEDS: hydrALAZINE 25 MG TABLET PO SCH ×2 (09:05→20:18)
[2018-01-14] MEDS: amLODIPine 5 MG TABLET PO SCH ×2 (09:05→20:18)
[2018-01-14] MEDS: Metoprolol XL (24 HR) Succ 50 MG TAB.ER.24H PO SCH (09:05)
[2018-01-14] MEDS: predniSONE 20 MG TABLET PO SCH (09:05)
[2018-01-14] MEDS: Cholecalciferol (D-3) 1,000 UNIT TABLET PO SCH (09:05)
[2018-01-14] MEDS: Pregabalin 50 MG CAPSULE PO SCH ×2 (09:05→20:18)
[2018-01-14] MEDS: Sennosides/Docusate Sodium TABLET PO SCH ×2 (09:05→20:20)
[2018-01-14] MEDS: Aspirin 81 MG TAB.CHEW PO SCH (09:05)
[2018-01-14] MEDS: Multivit/Ca/Min/Fe/FA 1 TAB TABLET PO SCH (09:05)
--- NOTE | 2018-01-14 12:05 | Internal Med Progress Note ---
Date of Encounter: 01/14/18 Time of Encounter: 11:59 - Assessment and plan (1) DVT prophylaxis Current Visit: Yes Status: Acute Assessment and plan: Heparin SQ (2) HCAP (healthcare-associated pneumonia) Current Visit: No Status: Suspected Assessment and plan: Continue Cefepime (Day 08/23) Will de-escalate depending on culture sensitivity from bronchoscopy s/p bronchoscopy on 01/11/18 clinically improving will continue titrate down O2 supplementation as tolerated PT/OT evaluation recommended inpatient rehab, pt will to consider, will obtain social work associate evaluation (3) HTN (hypertension) Current Visit: Yes Status: Chronic Assessment and plan: BP within acceptable range continue home medications will closely monitor BP Qualifiers: Hypertension type: secondary to other renal disorders Qualified Code(s): I15.1 - Hypertension secondary to other renal disorders; N28.89 - Other specified disorders of kidney and ureter; N28.89 - Other specified disorders of kidney and ureter (4) Facial swelling Current Visit: Yes Status: Resolved Assessment and plan: resolved finished 7 days of IV vancomycin (5) Cellulitis and abscess of face Current Visit: Yes Status: Resolved Assessment and plan: resolved finished 7 days of IV vancomycin (6) Acute encephalopathy Current Visit: Yes Status: Resolved Assessment and plan: mental status back to baseline (7) Pulmonary edema Current Visit: Yes Status: Acute Assessment and plan: improving continue HD as per nephro Qualifiers: Chronicity: acute Qualified Code(s): J81.0 - Acute pulmonary edema (8) Acute respiratory failure with hypoxia Current Visit: Yes Status: Acute Assessment and plan: Secondary to advanced COPD complicated by PNA continue O2 supplementation incentive spirometry IV abx systemic steroids (prednisone 40mg PO qd,will continue the prednisone long taper ) bipap at bedtime and as needed during the day closely monitor respiratory status monitor O2 sat, goal O2 sat: 88-92% (9) Acute exacerbation of chronic obstructive pulmonary disease (COPD) Current Visit: Yes Status: Acute Assessment and plan: as listed above (10) End stage renal disease on dialysis Current Visit: Yes Status: Chronic Assessment and plan: nephrology input appreciated continue HD (MWF) - Time Spent With Patient Total time spent is greater than 50% in coordination of care (as documented) at patient's floor/unit and/or counseling patient: - Subjective Interval history: Pt seen and examined at bedside. s/p HD (01/13/18) sitting in chair and eating lunch but reports of having difficulty in breathing. Saturating 88-90% on 3-4L NC and noted to be tachypneic. s/p bronchoscopy on 01/11/18. Pt has been refusing bipap support. Pt educated about the need to stay compliant with bipap. Will to be compliant. Will use bipap after lunch today. - Constitutional Vitals: Temp Pulse Resp BP Pulse Ox 98.4 F 82 20 127/61 90 01/14/18 11:53 01/14/18 11:53 01/14/18 11:53 01/14/18 11:53 01/14/18 11:53 General appearance: Present: cooperative, A&O X 3, pleasant, no acute distress, answers questions appropriately - Head Head exam: Present: atraumatic, normocephalic - Eye Eye exam: Present: conjuntiva pink, sclera anicteric - Respiratory Respiratory exam: Present: tachypnea. Absent: respiratory distress (equal air entry bilaterally, decreased breath sounds), wheezes - Cardiovascular Cardiovascular exam: Present: RRR, +S1, +S2. Absent: diastolic murmur, gallop, rubs, systolic murmur - GI/Abdominal GI/Abdominal exam: Present: normal bowel sounds, soft, no peritoneal signs. Absent: distended, tenderness - Extremities Exam Extremities exam: Present: pedal edema, warm, radial pulses palpable and symmetrical. Absent: calf tenderness - Neurological Exam Neurological exam: Present: oriented X3 - Psychiatric Psychiatric exam: Present: normal affect, normal mood Internal Medicine: Result - Labs CBC & Chem 7: 01/14/18 03:43 01/14/18 03:43 Labs: Short CBC 01/13/18 01/14/18 Range/Units 11:43 03:43 WBC 8.0 (4.3-11.1) K/mcL Hgb 8.8 L 8.7 L (11.5-15.4) g/dL Hct 27.7 L 27.7 L (35.3-44.9) % Plt Count 286 (140-400) K/mcL Neutrophils # 5.4 (1.6-8.9) K/mcL BMP 01/14/18 03:43 Sodium 137 Potassium 4.4 Chloride 100 Carbon Dioxide 31 H BUN 28 H Creatinine 3.64 H Glucose 97 Calcium 9.5 - ABG Interpretation ABG results: ABG ABG pH 7.44 pH Units (7.32-7.45) 01/08/18 09:48 ABG pCO2 48 mmHg (35-45) H 01/08/18 09:48 ABG pO2 59 mmHg (85-104) L 01/08/18 09:48 ABG O2 Saturation 91 % (95-98) L 01/08/18 09:48 PT/INR, D-dimer PT 9.8 Seconds (9.4-12.1) 01/11/18 06:42 D-Dimer 5201 ng/mLFEU (0-500) H 01/04/18 01:02 - VTE Documentation of Mechanical Device: Intermittent pneumatic compression device Consult Discharge Plan - Plan Referrals: Vladimir Chaidez MD [Primary Care Provider] - 01/20/18 3:00 pm
[2018-01-14] MEDS: Cefepime HCl 1,000 MG in Water for inj. (sterile) 20 ML 10 ML IVP SCH (16:59)
[2018-01-15] MEDS: Albuterol 2.5 MG/3 ML NEBULIZER IH SCH ×6 (03:35→23:29)
[2018-01-15] MEDS: Acetylcysteine 10% 2 ML INHSOL IH SCH ×6 (03:36→23:29)
[2018-01-15 04:57] LABS: Calcium 10.2 mg/dL (8.6-10.3); Magnesium 2.4 mg/dL (1.6-2.6); Potassium 4.8 mEq/L (3.5-5.1)
[2018-01-15 05:04] LABS: Basophils % 0.2 %; Eosinophils % 0.2 %; Hemoglobin 9.1 g/dL (11.5-15.4); Immature Granulocytes % 3.3 % (0-4); Lymphocytes # 1.1 K/mcL (0.6-4.6); Lymphocytes % 11.6 %; Mean Corpuscular HGB Conc 31.4 g/dL (31.6-35.5); Mean Corpuscular Hemoglobin 34.2 pg (28.0-33.3); Mean Platelet Volume 10.5 fL (9.4-12.4); Monocytes # 0.8 K/mcL (0.0-1.3); Monocytes % 8.1 %; Neutrophils # 7.4 K/mcL (1.6-8.9); Platelet Count 315 K/mcL (140-400); Red Blood Count 2.66 M/mcL (3.82-4.97); Segmented Neutrophils % 76.6 %
[2018-01-15] MEDS: *HR* Heparin 5,000 UNIT/ML VIAL SQ SCH ×3 (06:04→21:24)
[2018-01-15] MEDS: Levothyroxine 25 MCG TABLET PO SCH (06:05)
[2018-01-15] MEDS: Renal Vitamin 1 MG CAPSULE PO SCH (08:00)
[2018-01-15] MEDS: amLODIPine 5 MG TABLET PO SCH ×2 (08:00→21:23)
[2018-01-15] MEDS: hydrALAZINE 25 MG TABLET PO SCH ×2 (08:00→21:22)
[2018-01-15] MEDS: Loratadine 10 MG TABLET PO SCH (08:01)
[2018-01-15] MEDS: Aspirin 81 MG TAB.CHEW PO SCH (08:01)
[2018-01-15] MEDS: Multivit/Ca/Min/Fe/FA 1 TAB TABLET PO SCH (08:01)
[2018-01-15] MEDS: Sennosides/Docusate Sodium TABLET PO SCH ×2 (08:01→21:23)
[2018-01-15] MEDS: Pregabalin 50 MG CAPSULE PO SCH ×2 (08:01→21:23)
[2018-01-15] MEDS: Cholecalciferol (D-3) 1,000 UNIT TABLET PO SCH (08:01)
[2018-01-15] MEDS: Metoprolol XL (24 HR) Succ 50 MG TAB.ER.24H PO SCH (08:01)
[2018-01-15] MEDS: predniSONE 20 MG TABLET PO SCH (08:01)
[2018-01-15] MEDS: Budesonide/Formoterol 160/4.5 MDI IH SCH ×2 (08:20→19:57)
--- NOTE | 2018-01-15 08:31 | Nephrology Progress Note ---
Date of Encounter: 01/15/18 Time of Encounter: 08:20 - Assessment and Plan (1) ESRD on dialysis Current Visit: Yes Status: Chronic S/P bronch with mucous plugging. Increased respiratory effort this morning. No HD today, keeping MWF schedule. Subjective Principal diagnosis: Pneumonia, resp distress, mucus plugging Interval history: Sitting up in chair, somewhat tachypneic. "just cannot seem to catch my breath. " Eating breakfast. Objective - Vital Signs Vital signs: Vital Signs Temp Pulse Resp BP Pulse Ox 01/15/18 06:14 97 01/15/18 03:46 97.6 F 76 18 148/54 100 01/15/18 03:36 15 99 01/15/18 00:24 97 01/15/18 00:23 97.9 F 85 18 144/55 97 01/14/18 23:49 18 95 01/14/18 19:54 18 95 01/14/18 19:20 99.4 F 88 18 132/50 95 01/14/18 16:27 98.9 F 93 20 139/57 94 01/14/18 16:16 18 92 01/14/18 12:45 40 95 01/14/18 11:53 98.4 F 82 20 127/61 90 01/14/18 11:12 92 01/14/18 11:10 18 92 Intake and Output 01/14/18 01/15/18 01/15/18 23:59 07:59 15:59 Intake Total 360 / 360 0 / 0 Output Total 0 / 0 0 / 0 Balance 360 / 360 0 / 0 Intake: Oral 360 / 360 0 / 0 Output: Urine 0 / 0 0 / 0 Other: Meal Dinner Percent of Meal Consumed 70% Stool Size Large # Bowel Movements 1 Weight 63.866 kg Patient Weight 01/15/18 23:59 Weight 63.866 kg - General Appearance General appearance: Present: well-developed, well-nourished, appears started age EENT: Present: mucous membranes moist Neck: Present: no JVD Respiratory: Present: clear Cardiology: Present: edema, regular rate, regular rhythm Additional Comments: ankle/pedal Dialysis Vascular Access: Arteriovenous Fistula Gastrointestinal: Present: normoactive bowel sounds, no tenderness Integumentary: Present: warm and dry Neurologic: Present: alert and oriented x3 - Lab 01/15/18 04:24 01/15/18 04:24 Most recent lab results ABG pH 7.44 pH Units (7.32-7.45) 01/08/18 09:48 ABG pCO2 48 mmHg (35-45) H 01/08/18 09:48 ABG pO2 59 mmHg (85-104) L 01/08/18 09:48 ABG HCO3 32 mEq/L (21-27) H 01/08/18 09:48 ABG O2 Saturation 91 % (95-98) L 01/08/18 09:48 Calcium 10.2 mg/dL (8.6-10.3) 01/15/18 04:24 Phosphorus 3.0 mg/dL (2.7-4.5) 01/15/18 04:24 Magnesium 2.4 mg/dL (1.6-2.6) 01/15/18 04:24 - VTE Documentation of Mechanical Device: Intermittent pneumatic compression device Consult Discharge Plan - Plan Referrals: Vladimir Chaidez MD [Primary Care Provider] - 01/20/18 3:00 pm
--- NOTE | 2018-01-15 11:15 | Internal Med Progress Note ---
Date of Encounter: 01/15/18 Time of Encounter: 11:11 - Assessment and plan (1) DVT prophylaxis Current Visit: Yes Status: Acute Assessment and plan: Heparin SQ (2) HCAP (healthcare-associated pneumonia) Current Visit: No Status: Suspected Assessment and plan: Continue Cefepime (Day 09/22) Will de-escalate depending on culture sensitivity from bronchoscopy s/p bronchoscopy on 01/11/18 clinically improving will continue titrate down O2 supplementation as tolerated PT/OT evaluation recommended inpatient rehab, pt willing to go, oncology social work evaluation requested (3) HTN (hypertension) Current Visit: Yes Status: Chronic Assessment and plan: BP within acceptable range continue home medications will closely monitor BP Qualifiers: Hypertension type: secondary to other renal disorders Qualified Code(s): I15.1 - Hypertension secondary to other renal disorders; N28.89 - Other specified disorders of kidney and ureter; N28.89 - Other specified disorders of kidney and ureter (4) Facial swelling Current Visit: Yes Status: Resolved Assessment and plan: resolved finished 7 days of IV vancomycin (5) Cellulitis and abscess of face Current Visit: Yes Status: Resolved Assessment and plan: resolved finished 7 days of IV vancomycin (6) Acute encephalopathy Current Visit: Yes Status: Resolved Assessment and plan: mental status back to baseline (7) Pulmonary edema Current Visit: Yes Status: Acute Assessment and plan: improving continue HD as per nephro Qualifiers: Chronicity: acute Qualified Code(s): J81.0 - Acute pulmonary edema (8) Acute respiratory failure with hypoxia Current Visit: Yes Status: Acute Assessment and plan: Secondary to advanced COPD complicated by PNA continue O2 supplementation incentive spirometry IV abx systemic steroids (prednisone 40mg PO qd,will continue the prednisone long taper ) bipap at bedtime and as needed during the day closely monitor respiratory status monitor O2 sat, goal O2 sat: 88-92% (9) Acute exacerbation of chronic obstructive pulmonary disease (COPD) Current Visit: Yes Status: Acute Assessment and plan: as listed above (10) End stage renal disease on dialysis Current Visit: Yes Status: Chronic Assessment and plan: nephrology input appreciated continue HD (MWF) - Time Spent With Patient Total time spent is greater than 50% in coordination of care (as documented) at patient's floor/unit and/or counseling patient: - Subjective Interval history: Pt seen and examined at bedside. s/p HD (01/13/18) Sitting in chair and reports of improvement in her symptoms compared to previous day. Pt wore bipap for part of the night and for a few hours during the day. Pt educated about the need to remain compliant with bipap support throughout the night. Will obtain bipap qualification study overnight for bipap support after discharge. Pt willing to go to [facility] after discharge. oncology social work evaluation requested for placement. - Constitutional Vitals: Temp Pulse Resp BP Pulse Ox 98.2 F 80 15 100/35 95 01/15/18 10:12 01/15/18 10:12 01/15/18 10:12 01/15/18 10:12 01/15/18 10:12 General appearance: Present: cooperative, A&O X 3, pleasant, no acute distress, answers questions appropriately - Head Head exam: Present: atraumatic, normocephalic - Eye Eye exam: Present: conjuntiva pink, sclera anicteric - Respiratory Respiratory exam: Absent: respiratory distress, wheezes (equal air entry bilaterally ) - Cardiovascular Cardiovascular exam: Present: RRR, +S1, +S2. Absent: diastolic murmur, gallop, rubs, systolic murmur - GI/Abdominal GI/Abdominal exam: Present: normal bowel sounds, soft, no peritoneal signs. Absent: tenderness - Extremities Exam Extremities exam: Present: pedal edema, warm, radial pulses palpable and symmetrical. Absent: calf tenderness, tenderness - Neurological Exam Neurological exam: Present: oriented X3 Internal Medicine: Result - Labs CBC & Chem 7: 01/15/18 04:24 01/15/18 04:24 Labs: Short CBC 01/15/18 Range/Units 04:24 WBC 9.7 (4.3-11.1) K/mcL Hgb 9.1 L (11.5-15.4) g/dL Hct 29.0 L (35.3-44.9) % Plt Count 315 (140-400) K/mcL Neutrophils # 7.4 (1.6-8.9) K/mcL BMP 01/15/18 04:24 Sodium 134 L Potassium 4.8 Chloride 96 L Carbon Dioxide 29 BUN 53 H Creatinine 5.34 H Glucose 111 H Calcium 10.2 - ABG Interpretation ABG results: ABG ABG pH 7.44 pH Units (7.32-7.45) 01/08/18 09:48 ABG pCO2 48 mmHg (35-45) H 01/08/18 09:48 ABG pO2 59 mmHg (85-104) L 01/08/18 09:48 ABG O2 Saturation 91 % (95-98) L 01/08/18 09:48 PT/INR, D-dimer PT 9.8 Seconds (9.4-12.1) 01/11/18 06:42 D-Dimer 5201 ng/mLFEU (0-500) H 01/04/18 01:02 - VTE Documentation of Mechanical Device: Intermittent pneumatic compression device Consult Discharge Plan - Plan Referrals: Vladimir Chaidez MD [Primary Care Provider] - 01/20/18 3:00 pm
[2018-01-15] MEDS: Cefepime HCl 1,000 MG in Water for inj. (sterile) 20 ML 10 ML IVP SCH (16:56)
[2018-01-16] MEDS: Acetylcysteine 10% 2 ML INHSOL IH SCH ×6 (03:43→23:07)
[2018-01-16] MEDS: Albuterol 2.5 MG/3 ML NEBULIZER IH SCH ×6 (03:43→23:07)
[2018-01-16] MEDS: Levothyroxine 25 MCG TABLET PO SCH (05:58)
[2018-01-16] MEDS: *HR* Heparin 5,000 UNIT/ML VIAL SQ SCH ×3 (05:59→21:14)
[2018-01-16 06:21] LABS: Hematocrit 25.4 % (35.3-44.9); Immature Granulocytes % 2.7 % (0-4); Lymphocytes # 0.9 K/mcL (0.6-4.6); Lymphocytes % 10.8 %; Mean Corpuscular HGB Conc 31.5 g/dL (31.6-35.5); Mean Corpuscular Hemoglobin 34.2 pg (28.0-33.3); Mean Corpuscular Volume 108.5 fL (83.0-100.0); Mean Platelet Volume 10.1 fL (9.4-12.4); Monocytes # 0.5 K/mcL (0.0-1.3); Monocytes % 5.7 %; Neutrophils # 6.6 K/mcL (1.6-8.9); Nucleated Red Blood Cells 0.4 /100 WBC (0); Platelet Count 245 K/mcL (140-400); Red Blood Count 2.34 M/mcL (3.82-4.97); Red Cell Distribution Width 17.3 % (11.5-14.5); Segmented Neutrophils % 80.8 %
[2018-01-16 06:40] LABS: Calcium 9.9 mg/dL (8.6-10.3); Magnesium 2.4 mg/dL (1.6-2.6); Potassium 5.9 mEq/L (3.5-5.1)
[2018-01-16] MEDS: Budesonide/Formoterol 160/4.5 MDI IH SCH ×2 (07:29→19:26)
--- NOTE | 2018-01-16 08:24 | Nephrology Progress Note ---
Date of Encounter: 01/16/18 Time of Encounter: 08:23 - Assessment and Plan (1) ESRD on dialysis Current Visit: Yes Status: Chronic The patient will undergo dialysis today and a 2K bath. I suspect her hand tremors related to the prednisone (2) Anemia in chronic kidney disease (CKD) Current Visit: No Status: Chronic Qualifiers: Chronic kidney disease stage: on chronic dialysis Qualified Code(s): N18.6 - End stage renal disease; D63.1 - Anemia in chronic kidney disease; D63.1 - Anemia in chronic kidney disease; Z99.2 - Dependence on renal dialysis; Z99.2 - Dependence on renal dialysis; Z99.2 - Dependence on renal dialysis; Z99.2 - Dependence on renal dialysis (3) Infection of nose Current Visit: Yes Status: Acute Subjective Principal diagnosis: Pneumonia, resp distress, mucus plugging Interval history: Patient is complaining of some hand tremors. She reports her breathing is stable. She is scheduled for her usual dialysis today. Objective - Vital Signs Vital signs: Vital Signs Temp Pulse Resp BP Pulse Ox 01/16/18 08:12 98.3 F 87 17 150/78 90 01/16/18 07:32 16 93 01/16/18 03:35 97.6 F 77 18 133/71 98 01/16/18 03:28 20 90 01/16/18 00:30 98.2 F 78 18 120/41 91 01/15/18 23:30 20 94 01/15/18 23:01 95 01/15/18 19:58 24 93 01/15/18 19:10 98.8 F 88 18 131/41 92 01/15/18 16:34 97.6 F 92 15 129/44 93 01/15/18 15:47 18 94 01/15/18 10:59 20 95 01/15/18 10:12 98.2 F 80 15 100/35 95 01/15/18 08:40 97.8 F 88 15 131/55 96 Intake and Output 01/15/18 01/16/18 01/16/18 23:59 07:59 15:59 Intake Total 240 / 240 Output Total 0 / 0 Balance 240 / 240 0 / 0 Intake: Oral 240 / 240 Output: Urine 0 / 0 Other: Weight 65.1 kg Patient Weight 01/16/18 23:59 Weight 65.1 kg - General Appearance Exam: Patient is alert and oriented. She is in no acute distress. She appears chronically ill. She is having some tremors of her upper extremities. Lungs bilateral rhonchi. Heart regular rate and rhythm. Abdomen is benign. There is minimal lower extremity swelling. There is a functioning AV fistula in the left upper extremity. - Lab 01/16/18 04:00 01/16/18 04:00 Most recent lab results ABG pH 7.44 pH Units (7.32-7.45) 01/08/18 09:48 ABG pCO2 48 mmHg (35-45) H 01/08/18 09:48 ABG pO2 59 mmHg (85-104) L 01/08/18 09:48 ABG HCO3 32 mEq/L (21-27) H 01/08/18 09:48 ABG O2 Saturation 91 % (95-98) L 01/08/18 09:48 Calcium 9.9 mg/dL (8.6-10.3) 01/16/18 04:00 Phosphorus 3.0 mg/dL (2.7-4.5) 01/16/18 04:00 Magnesium 2.4 mg/dL (1.6-2.6) 01/16/18 04:00 - VTE Documentation of Mechanical Device: Intermittent pneumatic compression device Consult Discharge Plan - Plan Referrals: Vladimir Chaidez MD [Primary Care Provider] - 01/20/18 3:00 pm
[2018-01-16] MEDS ORDERED: 0.9 % Sodium Chloride 250 ML IVC PRN (08:25)
[2018-01-16] MEDS: predniSONE 20 MG TABLET PO SCH (09:16)
[2018-01-16] MEDS: Pregabalin 50 MG CAPSULE PO SCH ×2 (09:16→21:13)
[2018-01-16] MEDS: Sennosides/Docusate Sodium TABLET PO SCH ×2 (09:16→21:13)
[2018-01-16] MEDS: Cholecalciferol (D-3) 1,000 UNIT TABLET PO SCH (09:16)
[2018-01-16] MEDS: Loratadine 10 MG TABLET PO SCH (09:17)
[2018-01-16] MEDS: Renal Vitamin 1 MG CAPSULE PO SCH (09:17)
[2018-01-16] MEDS: Multivit/Ca/Min/Fe/FA 1 TAB TABLET PO SCH (09:17)
[2018-01-16] MEDS: Aspirin 81 MG TAB.CHEW PO SCH (09:17)
--- NOTE | 2018-01-16 12:55 | Internal Med Progress Note ---
Date of Encounter: 01/16/18 Time of Encounter: 12:53 - Assessment and plan (1) DVT prophylaxis Current Visit: Yes Status: Acute Assessment and plan: Heparin SQ (2) HCAP (healthcare-associated pneumonia) Current Visit: No Status: Suspected Assessment and plan: Continue Cefepime (Day ) Will de-escalate depending on culture sensitivity from bronchoscopy s/p bronchoscopy on 01/11/18 clinically improving will continue titrate down O2 supplementation as tolerated PT/OT evaluation recommended inpatient rehab,pt refusing at this time home health care social worker to arrange home health services tentative d/c in am after completion of IV abx (3) HTN (hypertension) Current Visit: Yes Status: Chronic Assessment and plan: BP within acceptable range continue home medications will closely monitor BP Qualifiers: Hypertension type: secondary to other renal disorders Qualified Code(s): I15.1 - Hypertension secondary to other renal disorders; N28.89 - Other specified disorders of kidney and ureter; N28.89 - Other specified disorders of kidney and ureter (4) Facial swelling Current Visit: Yes Status: Resolved Assessment and plan: resolved finished 7 days of IV vancomycin (5) Cellulitis and abscess of face Current Visit: Yes Status: Resolved Assessment and plan: resolved finished 7 days of IV vancomycin (6) Acute encephalopathy Current Visit: Yes Status: Resolved Assessment and plan: mental status back to baseline (7) Pulmonary edema Current Visit: Yes Status: Acute Assessment and plan: resolved continue HD as per nephro HD(MWF) Qualifiers: Chronicity: acute Qualified Code(s): J81.0 - Acute pulmonary edema (8) Acute respiratory failure with hypoxia Current Visit: Yes Status: Acute Assessment and plan: Secondary to advanced COPD complicated by PNA continue O2 supplementation incentive spirometry IV abx systemic steroids (prednisone 40mg PO qd,will continue the prednisone long taper ) bipap at bedtime and as needed during the day closely monitor respiratory status monitor O2 sat, goal O2 sat: 88-92% (9) Acute exacerbation of chronic obstructive pulmonary disease (COPD) Current Visit: Yes Status: Acute Assessment and plan: as listed above (10) End stage renal disease on dialysis Current Visit: Yes Status: Chronic Assessment and plan: nephrology input appreciated continue HD (MWF) - Time Spent With Patient Total time spent is greater than 50% in coordination of care (as documented) at patient's floor/unit and/or counseling patient: - Subjective Interval history: Pt seen and examined in hemodialysis. Pt reports of having labored breathing however is saturating appropriately on nasal cannula Pt did not qualify for bipap support at home today she is refusing ECF placement after discharge but is agreement to home health services. home health care social worker on board and to arrange home health services. tentative d/c in am - Constitutional Vitals: Temp Pulse Resp BP Pulse Ox 98.0 F 87 18 142/59 90 01/16/18 09:50 01/16/18 08:12 01/16/18 09:50 01/16/18 12:02 01/16/18 08:12 General appearance: Present: cooperative, A&O X 3, pleasant, no acute distress, answers questions appropriately - Head Head exam: Present: atraumatic, normocephalic - Eye Eye exam: Present: conjuntiva pink, sclera anicteric - Respiratory Respiratory exam: Absent: respiratory distress, wheezes (equal air entry bilaterally ) - Cardiovascular Cardiovascular exam: Present: RRR, +S1, +S2. Absent: diastolic murmur, gallop, rubs, systolic murmur - GI/Abdominal GI/Abdominal exam: Present: normal bowel sounds, soft, no peritoneal signs. Absent: distended, tenderness - Extremities Exam Extremities exam: Present: pedal edema, warm, radial pulses palpable and symmetrical. Absent: calf tenderness - Neurological Exam Neurological exam: Present: oriented X3 Internal Medicine: Result - Labs CBC & Chem 7: 01/16/18 04:00 01/16/18 04:00 Labs: Short CBC 01/16/18 Range/Units 04:00 WBC 8.1 (4.3-11.1) K/mcL Hgb 8.0 L (11.5-15.4) g/dL Hct 25.4 L (35.3-44.9) % Plt Count 245 (140-400) K/mcL Neutrophils # 6.6 (1.6-8.9) K/mcL BMP 01/16/18 04:00 Sodium 132 L Potassium 5.9 H Chloride 97 L Carbon Dioxide 32 H BUN 74 H Creatinine 7.02 H Glucose 103 Calcium 9.9 - ABG Interpretation ABG results: ABG ABG pH 7.44 pH Units (7.32-7.45) 01/08/18 09:48 ABG pCO2 48 mmHg (35-45) H 01/08/18 09:48 ABG pO2 59 mmHg (85-104) L 01/08/18 09:48 ABG O2 Saturation 91 % (95-98) L 01/08/18 09:48 PT/INR, D-dimer PT 9.8 Seconds (9.4-12.1) 01/11/18 06:42 D-Dimer 5201 ng/mLFEU (0-500) H 01/04/18 01:02 - VTE Documentation of Mechanical Device: Intermittent pneumatic compression device Consult Discharge Plan - Plan Referrals: Vladimir Chaidez MD [Primary Care Provider] - 01/20/18 3:00 pm
[2018-01-16] MEDS: amLODIPine 5 MG TABLET PO SCH ×2 (13:14→21:13)
[2018-01-16] MEDS: hydrALAZINE 25 MG TABLET PO SCH ×2 (13:14→21:13)
[2018-01-16] MEDS: Metoprolol XL (24 HR) Succ 50 MG TAB.ER.24H PO SCH (13:14)
[2018-01-16] MEDS: Cefepime HCl 1,000 MG in Water for inj. (sterile) 20 ML 10 ML IVP SCH (17:41)
[2018-01-16 17:56] LABS: ABG Base Excess 14 mEq/L (-2 to 3); ABG HCO3 38 mEq/L (21-27); ABG Oxygen Saturation 95 % (95-98); ABG PCO2 44 mmHg (35-45); ABG PH 7.55 pH Units (7.32-7.45); ABG PO2 65 mmHg (85-104); ABG TCO2 39 mEq/L (20-26)
[2018-01-17] MEDS: Albuterol 2.5 MG/3 ML NEBULIZER IH SCH ×4 (03:55→15:37)
[2018-01-17] MEDS: Acetylcysteine 10% 2 ML INHSOL IH SCH ×4 (03:55→15:38)
[2018-01-17 04:38] VITALS: BP 133/57
[2018-01-17] MEDS: Levothyroxine 25 MCG TABLET PO SCH (05:42)
[2018-01-17] MEDS: *HR* Heparin 5,000 UNIT/ML VIAL SQ SCH (05:43)
[2018-01-17 06:03] LABS: Basophils % 0.2 %; Eosinophils % 0.3 %; Hematocrit 25.8 % (35.3-44.9); Hemoglobin 8.1 g/dL (11.5-15.4); Immature Granulocytes % 2.4 % (0-4); Lymphocytes # 1.1 K/mcL (0.6-4.6); Lymphocytes % 11.9 %; Mean Corpuscular HGB Conc 31.4 g/dL (31.6-35.5); Mean Corpuscular Volume 108.4 fL (83.0-100.0); Mean Platelet Volume 10.5 fL (9.4-12.4); Monocytes # 0.7 K/mcL (0.0-1.3); Monocytes % 7.4 %; Nucleated Red Blood Cells 0.3 /100 WBC (0); Platelet Count 225 K/mcL (140-400); Red Blood Count 2.38 M/mcL (3.82-4.97); Red Cell Distribution Width 18.5 % (11.5-14.5); Segmented Neutrophils % 77.8 %
[2018-01-17 06:24] LABS: Calcium 9.5 mg/dL (8.6-10.3); Magnesium 2.1 mg/dL (1.6-2.6); Phosphorous 2.2 mg/dL (2.7-4.5); Potassium 4.7 mEq/L (3.5-5.1)
[2018-01-17] MEDS: Budesonide/Formoterol 160/4.5 MDI IH SCH (07:26)
--- NOTE | 2018-01-17 07:58 | Nephrology Progress Note ---
Date of Encounter: 01/17/18 Time of Encounter: 07:56 - Assessment and Plan (1) ESRD on dialysis Current Visit: Yes Status: Chronic The patient is stable from a renal perspective. She will continue to have dialysis every Tuesday. Her Aranesp was increased yesterday. She is improving from a pulmonary standpoint. Blood pressure is well controlled. (2) Anemia in chronic kidney disease (CKD) Current Visit: No Status: Chronic Qualifiers: Chronic kidney disease stage: on chronic dialysis Qualified Code(s): N18.6 - End stage renal disease; D63.1 - Anemia in chronic kidney disease; D63.1 - Anemia in chronic kidney disease; Z99.2 - Dependence on renal dialysis; Z99.2 - Dependence on renal dialysis; Z99.2 - Dependence on renal dialysis; Z99.2 - Dependence on renal dialysis (3) Infection of nose Current Visit: Yes Status: Acute Subjective Principal diagnosis: Pneumonia, resp distress, mucus plugging Interval history: The patient continues to produce sputum. Otherwise she says she is doing relatively well. She is sitting up in a chair and appears stable. She is afebrile and blood pressure is controlled. She did have dialysis yesterday. Objective - Vital Signs Vital signs: Vital Signs Temp Pulse Resp BP Pulse Ox 01/17/18 07:27 20 91 01/17/18 04:34 98.6 F 76 20 133/57 92 01/17/18 03:56 21 91 01/17/18 00:12 98 F 80 20 133/45 92 01/16/18 23:19 24 92 01/16/18 23:07 20 92 01/16/18 19:55 97.8 F 87 16 151/61 92 01/16/18 15:54 16 96 01/16/18 13:05 97.9 F 20 152/66 01/16/18 12:50 142/59 01/16/18 12:35 143/62 01/16/18 12:20 149/65 01/16/18 12:05 145/62 01/16/18 11:50 144/68 01/16/18 11:35 148/65 01/16/18 11:20 143/63 01/16/18 11:05 140/64 01/16/18 10:50 145/65 01/16/18 10:35 143/65 01/16/18 10:20 139/70 01/16/18 10:05 150/66 01/16/18 09:50 98.0 F 18 140/69 01/16/18 08:12 98.3 F 87 17 150/78 90 Intake and Output 01/16/18 01/16/18 01/17/18 15:59 23:59 07:59 Intake Total 1210 / 1210 480 / 480 Output Total 3600 / 3600 0 / 0 Balance -2390 / -2390 480 / 480 Intake: IV Fluids Maxipime 1,000 MG In Water for inj. (sterile) 10 ML @ 150 mls/ hr IVP Q24H [facility] Rx#:[id number] Oral 600 / 600 480 / 480 Intake, Rinseback and Flushes 600 / 600 Output: Urine 0 / 0 Total Dialysis (HD) Output 3600 / 3600 Other: Meal Lunch Dinner Percent of Meal Consumed 100% 100% # Voids 0 Weight 65.3 kg Hemodialysis Net Fluid Removed 3000 (mL) Patient Weight 01/17/18 23:59 Weight 65.3 kg - General Appearance Exam: Patient is alert and oriented. She is in no acute distress. Lungs scattered rhonchi. Heart regular rate and rhythm. Abdomen is benign. There is minimal lower extremity swelling. There is a functioning AV access in the left upper extremity. - Lab 01/17/18 05:22 01/17/18 05:22 Most recent lab results ABG pH 7.55 pH Units (7.32-7.45) H 01/16/18 17:42 ABG pCO2 44 mmHg (35-45) 01/16/18 17:42 ABG pO2 65 mmHg (85-104) L 01/16/18 17:42 ABG HCO3 38 mEq/L (21-27) H 01/16/18 17:42 ABG O2 Saturation 95 % (95-98) 01/16/18 17:42 Calcium 9.5 mg/dL (8.6-10.3) 01/17/18 05:22 Phosphorus 2.2 mg/dL (2.7-4.5) L 01/17/18 05:22 Magnesium 2.1 mg/dL (1.6-2.6) 01/17/18 05:22 - VTE Documentation of Mechanical Device: Intermittent pneumatic compression device Consult Discharge Plan - Plan Instructions: Acute Respiratory Distress Syndrome (DC), Chronic Obstructive Pulmonary Disease (DC), Pneumonia (DC) Referrals: Vladimir Chaidez MD [Primary Care Provider] - 01/20/18 3:00 pm
[2018-01-17] MEDS: hydrALAZINE 25 MG TABLET PO SCH (09:27)
[2018-01-17] MEDS: predniSONE 20 MG TABLET PO SCH (09:27)
[2018-01-17] MEDS: Multivit/Ca/Min/Fe/FA 1 TAB TABLET PO SCH (09:27)
[2018-01-17] MEDS: Aspirin 81 MG TAB.CHEW PO SCH (09:27)
[2018-01-17] MEDS: Pregabalin 50 MG CAPSULE PO SCH (09:27)
[2018-01-17] MEDS: Cholecalciferol (D-3) 1,000 UNIT TABLET PO SCH (09:28)
[2018-01-17] MEDS: Metoprolol XL (24 HR) Succ 50 MG TAB.ER.24H PO SCH (09:28)
[2018-01-17] MEDS: Loratadine 10 MG TABLET PO SCH (09:28)
[2018-01-17] MEDS: amLODIPine 5 MG TABLET PO SCH (09:28)
[2018-01-17] MEDS: Renal Vitamin 1 MG CAPSULE PO SCH (09:28)
[2018-01-17] MEDS: Sennosides/Docusate Sodium TABLET PO SCH (09:46)
--- NOTE | 2018-01-17 13:28 | Discharge Summary ---
- NOTES TO OUTPATIENT PROVIDER Notes to Outpatient Provider: Pt was discharged with a prednisone taper Orders not resulted at time of discharge: Pending orders 01/08/18 15:52 Sputum Culture [Culture,Sputum with Gram Stain] [RM] Routine 01/11/18 11:49 AFB Culture, Respiratory [TB] Routine AFB Culture, Respiratory [TB] Routine AFB Smear [TB] Routine AFB Smear [TB] Routine Fungal Culture [MYC] Routine Fungal Culture [MYC] Routine Legionella Culture [RM] Routine Legionella Culture [RM] Routine 01/18/18 04:00 CMP [Comprehensive Metabolic Panel] AM 0400 Complete Blood Count [HEME] AM 0400 Date of Encounter: 01/17/18 Time of Encounter: 13:22 - Discharge Diagnosis (1) DVT prophylaxis Priority: Secondary Status: Acute (2) HCAP (healthcare-associated pneumonia) Priority: Primary Status: Suspected (3) HTN (hypertension) Priority: Secondary Status: Chronic Qualifiers: Hypertension type: secondary to other renal disorders Qualified Code(s): I15.1 - Hypertension secondary to other renal disorders; N28.89 - Other specified disorders of kidney and ureter; N28.89 - Other specified disorders of kidney and ureter (4) Facial swelling Priority: Primary Status: Resolved (5) Cellulitis and abscess of face Priority: Primary Status: Resolved (6) Acute encephalopathy Priority: Primary Status: Resolved (7) Pulmonary edema Priority: Secondary Status: Acute Qualifiers: Chronicity: acute Qualified Code(s): J81.0 - Acute pulmonary edema (8) Acute respiratory failure with hypoxia Priority: Primary Status: Resolved (9) Acute exacerbation of chronic obstructive pulmonary disease (COPD) Priority: Secondary Status: Acute (10) End stage renal disease on dialysis Priority: Secondary Status: Chronic Hospital course: Ms. Carmona is a 77 year old female with PMH Of ESRD on HD, HTN, HLD, DVT who was initially admitted to the hospital for facial swelling as well as cellulitis of the face. She was treated with IV abx to which she responded. Her hospital course was further complicated by acute respiratory distress likely secondary to fluid overload secondary to ESRD, PNA, and COPD flare up requiring ICU monitoring. She has history mucus plugging of bronchi requiring intubation in the past. She was closely monitored in the ICU and had a bronchoscopy on . She was started on broad spectrum IV abx and systemic steroids. She was continued on her dialysis sessions throughout the course of her hospitalization. She gradually improved and was transferred to medical service. She is currently saturating at her baseline home oxygen. She has finished 14 days of IV abx. She was evaluated by physical therapy and inpatient rehab was recommended. Pt initially agreed but then changed her mind and is only wanting home health at this time. I had a detailed discussion with the patient and family in regards to discharge to ECF, patient adamantly refused d/c to ECF and is only wishing to go home. material requirements worker to arrange home health services prior to discharge. At this time pt is back to her baseline respiratory status. She will be discharged to home with follow up with PCP and pulmonary. She is to continue her dialysis sessions as per her care trainer. Discharge discussed with: patient, family, nurse, case management - Time Spent with Patient Total time spent providing and/or coordinating discharge services: Greater than 30 minutes - Discharge Medications Prescriptions: amLODIPine [Norvasc] 10 mg PO BID #60 tablet Levothyroxine [Synthroid] 37.5 mcg PO 0630 #30 tablet Home Medications: Albuterol Sulfate [Ventolin Hfa] 2 puff IH Q4H PRN 10/12/16 [History] Allopurinol [Zyloprim] 100 mg PO DAILY 10/12/16 [History] Aspirin 81 mg PO DAILY 10/12/16 [History] Atorvastatin [Lipitor] 40 mg PO HS 10/12/16 [History] Budesonide/Formoterol 160/4.5 [Symbicort 160/4.5] 2 puff IH BIDR 10/12/16 [ History] Cholecalciferol (Vitamin D3) [Vitamin D3] 2,000 unit PO DAILY 10/12/16 [History] Furosemide [Lasix] 20 mg PO QPM 10/12/16 [History] Furosemide [Lasix] 40 mg PO QAM 10/12/16 [History] Metoprolol XL (24 HR) Succ [Toprol Xl] 50 mg PO DAILY 01/14/17 [History] Multivitamin [Multi-Day Vitamins] 1 tab PO DAILY 01/14/17 [History] Acetylcysteine [W-Lykhnm-p-Cysteine] 600 mg PO TID 03/11/17 [History] HYDROcodone/Acet 5/325 mg [[place] 5-325 mg] 1 tab PO TID PRN 03/11/17 [History] Loratadine [Claritin] 10 mg PO DAILY 03/11/17 [History] Sevelamer [Renvela] 4,000 mg PO TIDWM 03/11/17 [History] Tizanidine HCl 4 mg PO TID PRN 03/11/17 [History] Losartan [Cozaar] 50 mg PO BID #60 tablet 03/14/17 [Rx] Pregabalin [Lyrica] 50 mg PO BID 11/22/17 [History] hydrALAZINE [HydrALAZINE] 50 mg PO BID #120 tablet 12/03/17 [Rx] B Complex W-C No.20/Folic Acid [Virt-Caps Softgel] 1 mg PO DAILY 01/01/18 [ History] Levothyroxine [Synthroid] 37.5 mcg PO 0630 #30 tablet 01/17/18 [Rx] amLODIPine [Norvasc] 10 mg PO BID #60 tablet 01/17/18 [Rx] predniSONE [PredniSONE] 30 mg PO DAILY tablet 01/17/18 [Rx] Allergies/Adverse Reactions: 3 Allergy/AdvReac Type Severity Reaction Status Date / Time codeine Allergy Rash Verified 11/25/17 14:42 gabapentin Allergy Itching Verified 11/25/17 14:42 Date of admission: 01/01/18 17:07 Primary care physician: Vladimir Chaidez MD Consults: 01/02/18 00:57 Consult to Physicist Nuclear [CONS] Routine Reason for SW Consult: PT HAS [facility] HOME O2 AND IS A HD PT. M-W-F 01/02/18 11:30 Consult to Dialysis [CONS] ONCE 01/04/18 07:28 Consult to Invasive Line Access Team [CONS] Routine Reason for Consult: no access and limited access Line Type: EPIV 01/04/18 08:30 Consult to Dialysis [CONS] ONCE 01/04/18 13:10 Consult to Cardiology [CONS] Routine Comment: Consulting Provider: Cardiology Makenzie Reason for Consult: Elevated troponin Call Completed: No 01/06/18 08:00 Consult to Dialysis [CONS] ONCE 01/06/18 11:41 Consult to Nutrition [CONS] Routine Comment: difficulty with appetite; refuses food often; Consulting Provider: NUTRITION Reason for Dietary Consult: Diet Education 01/08/18 08:58 Consult to Pulmonology [CONS] Routine Consulting Provider: Pulm Crit Care & Sleep Makenzie Reason for Consult: Respiratory Distress, PNA, Pulmonary Edema Time Notified: 08:57 Call Completed: Yes 01/09/18 08:30 Consult to Dialysis [CONS] ONCE 01/11/18 08:45 Consult to Dialysis [CONS] ONCE 01/12/18 08:45 Consult to Dialysis [CONS] ONCE 01/12/18 11:40 Consult to Occupational Therapy [CONS] Routine Comment: Evaluate, develop and implement POC Reason for Consult: evaluate discharge needs Does patient have active BEDREST order?: No Is patient medically & hemodynamically stable?: Yes Patient assessed for mobility or mobilized this visit?: No Consult to Physical Therapy [CONS] Routine Comment: Evaluate, develop and implement POC Reason for Consult: evaluate discharge needs Does patient have active BEDREST order?: No Is patient medically & hemodynamically stable?: Yes Patient assessed for mobility or mobilized this visit?: No 01/13/18 08:15 Consult to Dialysis [CONS] ONCE 01/16/18 08:30 Consult to Dialysis [CONS] ONCE Discharging clinician: Brittany Lewis Anticipated date of discharge: 01/17/18 - Constitutional Vitals: Temp Pulse Resp BP Pulse Ox 98.6 F 76 20 133/57 96 01/17/18 04:34 01/17/18 04:34 01/17/18 11:25 01/17/18 04:34 01/17/18 11:25 General appearance: Present: cooperative, A&O X 3, pleasant, no acute distress, answers questions appropriately - Head Head exam: Present: atraumatic, normocephalic - Eye Eye exam: Present: conjuntiva pink, sclera anicteric - Respiratory Respiratory exam: Absent: respiratory distress, wheezes (equal air entry bilaterally) - Cardiovascular Cardiovascular exam: Present: RRR, +S1, +S2. Absent: diastolic murmur, gallop, rubs, systolic murmur - GI/Abdominal GI/Abdominal exam: Present: normal bowel sounds, soft, no peritoneal signs. Absent: distended, tenderness - Extremities Exam Extremities exam: Present: pedal edema, warm, radial pulses palpable and symmetrical. Absent: calf tenderness - Neurological Exam Neurological exam: Present: oriented X3 - Patient Status Disposition: Home Health Service Condition: Good Functional capacity at discharge: uses cane/walker Overall status at discharge: patient is back to baseline - Discharge Instructions Instructions: Acute Respiratory Distress Syndrome (DC), Chronic Obstructive Pulmonary Disease (DC), Pneumonia (DC) Follow Up With: Vladimir Chaidez MD [Primary Care Provider] - 01/20/18 3:00 pm Additional Instructions: Please follow up with your primary care physician within five days after your discharge from the hospital Please follow up with your duplicating machine operator within one week after your discharge from the hospital. Please continue incentive spirometry use. Your home dose have been changed as follows: 1. Levothyroxine has been increased to 37.5mcg once a day 2. Amlodipine increased to 10mg twice a day. Closely monitor your blood pressure at home. Please hold your blood pressure medications for systolic blood pressure less than 100. Continue prednisone taper as prescribed resume all other home medications as prescribed by your primary care physician. continue hemodialysis as per your care trainer's outpatient schedule. - Diet and Activity Activity: as per physical therapy Diet: low fat, low cholesterol, low salt diet - VTE Documentation of Mechanical Device: Intermittent pneumatic compression device
--- NOTE | 2018-01-17 15:07 | Physician Discharge Referral ---
Home Health/Hosp Referral Info Transfer to: Home Health Provider in Charge Post Discharge: PCP - Diagnosis (1) DVT prophylaxis Priority: Secondary Status: Acute (2) HCAP (healthcare-associated pneumonia) Priority: Primary Status: Suspected (3) HTN (hypertension) Priority: Secondary Status: Chronic (4) Facial swelling Priority: Primary Status: Resolved (5) Cellulitis and abscess of face Priority: Primary Status: Resolved (6) Acute encephalopathy Priority: Secondary Status: Resolved (7) Pulmonary edema Priority: Secondary Status: Acute (8) Acute respiratory failure with hypoxia Priority: Secondary Status: Resolved (9) Acute exacerbation of chronic obstructive pulmonary disease (COPD) Priority: Secondary Status: Acute (10) End stage renal disease on dialysis Priority: Secondary Status: Chronic - Respiratory Orders Smoking Cessation: Smoking cessation has been advised. For more information, call the [place] Tobacco Quit Line at 6-593-OMFB-NOW. - Services Needed Following services are medically necessary services: Nursing, Home Health Aide, Occupational Therapy - Transfer Medications Prescriptions: RX: amLODIPine [Norvasc] 10 mg PO BID #60 tablet RX: Levothyroxine [Synthroid] 37.5 mcg PO 0630 #30 tablet Home Medications: RX: Albuterol Sulfate [Ventolin Hfa] 2 puff IH Q4H PRN 10/12/16 [History] RX: Allopurinol [Zyloprim] 100 mg PO DAILY 10/12/16 [History] RX: Aspirin 81 mg PO DAILY 10/12/16 [History] RX: Atorvastatin [Lipitor] 40 mg PO HS 10/12/16 [History] RX: Budesonide/Formoterol 160/4.5 [Symbicort 160/4.5] 2 puff IH BIDR 10/12/16 [ History] RX: Cholecalciferol (Vitamin D3) [Vitamin D3] 2,000 unit PO DAILY 10/12/16 [ History] RX: Furosemide [Lasix] 20 mg PO QPM 10/12/16 [History] RX: Furosemide [Lasix] 40 mg PO QAM 10/12/16 [History] RX: Metoprolol XL (24 HR) Succ [Toprol Xl] 50 mg PO DAILY 01/14/17 [History] RX: Multivitamin [Multi-Day Vitamins] 1 tab PO DAILY 01/14/17 [History] RX: Acetylcysteine [V-Fwcdme-u-Cysteine] 600 mg PO TID 03/11/17 [History] RX: HYDROcodone/Acet 5/325 mg [[place] 5-325 mg] 1 tab PO TID PRN 03/11/17 [ History] RX: Loratadine [Claritin] 10 mg PO DAILY 03/11/17 [History] RX: Sevelamer [Renvela] 4,000 mg PO TIDWM 03/11/17 [History] RX: Tizanidine HCl 4 mg PO TID PRN 03/11/17 [History] RX: Losartan [Cozaar] 50 mg PO BID #60 tablet 03/14/17 [Rx] RX: Pregabalin [Lyrica] 50 mg PO BID 11/22/17 [History] RX: hydrALAZINE [HydrALAZINE] 50 mg PO BID #120 tablet 12/03/17 [Rx] RX: B Complex W-C No.20/Folic Acid [Virt-Caps Softgel] 1 mg PO DAILY 01/01/18 [ History] RX: Levothyroxine [Synthroid] 37.5 mcg PO 0630 #30 tablet 01/17/18 [Rx] RX: amLODIPine [Norvasc] 10 mg PO BID #60 tablet 01/17/18 [Rx] RX: predniSONE [PredniSONE] 30 mg PO DAILY tablet 01/17/18 [Rx] Allergies/Adverse Reactions: 3 Allergy/AdvReac Type Severity Reaction Status Date / Time codeine Allergy Rash Verified 11/25/17 14:42 gabapentin Allergy Itching Verified 11/25/17 14:42 Certification: Further, I certify that my clinical findings support that this patient is homebound (i.e. absences from home require considerable and taxing effort and are for medical reasons or gnosticist services or infrequently or short duration when for other reasons) because: Homebound Reason: Patient requires assistance of a person or device to safely leave home Attestation: My signature below is to certify that this patient is under my care and that I, or nurse practitioner, or a physician's assistant professor of psychology working with me, has a face-to -face encounter with this patient.
[2018-01-17] MEDS ORDERED: Darbepoetin 150 MCG/0.3 ML SYRINGE SQ SCH (15:19)
[2018-01-17] MEDS ORDERED: Darbepoetin 100 MCG/0.5 ML SYRINGE SQ SCH (15:19)
== END 2018-01-17 16:27 | disposition home health service (06) | DRG 981 ==
LOC: EMEROO 11:01 → 2ANU 11:01 → SUATTDRO 17:07 → ICNU 01-08 13:08 → 2ANU 01-12 13:31
PROVIDERS: ADMIT Internal Medicine; ATTEND Internal Medicine

== ENCOUNTER 2018-02-15 12:47 | Inpatient (IN) ==
[2018-02-15] MEDS ORDERED: Ipratropium/Albuterol Neb 3 ML IH ONE (13:16)
[2018-02-15] MEDS ORDERED: methylPREDNISolone 125 MG/2 ML VIAL IVP ONE (13:16)
--- NOTE | 2018-02-15 13:36 | Emergency Department Note ---
Disposition Clinical Impression: Hypoxia, Healthcare-associated pneumonia, End stage renal disease, Elevated brain natriuretic peptide (BNP) level Disposition: Admitted As Inpatient Condition: Good SOB HPI - General Chief Complaint: ED Shortness of Breath/Dyspnea Stated Complaint: Oxygen levels are low Time Seen by Provider: 02/15/18 13:08 Source: patient Mode of arrival: wheelchair Limitations: no limitations Nursing Notes Reviewed: Yes Vital Signs Reviewed: Yes - History of Present Illness 77-year-old female history of end-stage renal disease on hemodialysis who presents to the ER from dialysis due to shortness of breath. Patient states she has not felt well for a few days and started feeling more short of breath last night. She has a history of COPD with oxygen dependency of 2 L continuous. Reports he has had a cough without any productive sputum. She states she was recently admitted to the hospital for COPD. She went to dialysis and was able to tolerate roughly 2 hours of therapy however she was unable to continue due to shortness of breath. She denies any recent illnesses. No fevers, chest pain, nausea or vomiting. She is unsure how much fluid they took off today. No other complaints. Pt Subjective Complaint: shortness of breath Onset (ago): day(s) Severity: moderate Consistency/Duration: constant Improves with: nothing Worsens with: nothing Known history of: COPD Associated symptoms: Reports: cough Treatment prior to arrival: oxygen Cough present: No Sputum production: No Sputum Amount: None - Related Data Home oxygen amount: 2 liters Home Medications Medication Instructions Recorded Confirmed Albuterol Sulfate [Ventolin Hfa] 2 puff IH Q4H PRN 10/12/16 02/15/18 Allopurinol [Zyloprim] 100 mg PO DAILY 10/12/16 02/15/18 Aspirin 81 mg PO DAILY 10/12/16 02/15/18 Atorvastatin [Lipitor] 40 mg PO HS 10/12/16 02/15/18 Budesonide/Formoterol 160/4.5 2 puff IH BIDR 10/12/16 02/15/18 [Symbicort 160/4.5] Furosemide [Lasix] 20 mg PO QPM 10/12/16 02/15/18 Furosemide [Lasix] 40 mg PO QAM 10/12/16 02/15/18 Metoprolol XL (24 HR) Succ [Toprol 50 mg PO DAILY 01/14/17 02/15/18 Xl] Loratadine [Claritin] 10 mg PO DAILY 03/11/17 02/15/18 Sevelamer [Renvela] 4,000 mg PO TIDWM 03/11/17 02/15/18 Pregabalin [Lyrica] 50 mg PO BID 11/22/17 02/15/18 B Complex W-C No.20/Folic Acid 1 mg PO DAILY 01/01/18 02/15/18 [Virt-Caps Softgel] Ipratropium/Albuterol Neb [Duoneb] 3 ml IH Q6HR 02/15/18 02/15/18 Previous Rx's Medication Instructions Recorded Losartan [Cozaar] 50 mg PO BID #60 tablet 03/14/17 Levothyroxine [Synthroid] 37.5 mcg PO 30 #30 tablet 01/17/18 amLODIPine [Norvasc] 10 mg PO BID #60 tablet 01/17/18 Allergies Allergy/AdvReac Type Severity Reaction Status Date / Time codeine Allergy Rash Verified 02/15/18 15:54 gabapentin Allergy Itching Verified 02/15/18 15:54 All systems ED: reviewed and negative except as stated. Constitutional: Denies: fever Cardiovascular: Denies: chest pain Respiratory: Reports: cough, dyspnea Gastrointestinal: Denies: abdominal pain, nausea, vomiting Past Medical History - Past Medical History Attestation: Yes The following information was validated with the patient. Source: patient Medical history: Reports: asthma, atrial fibrillation, COPD, DVT, dialysis, hyperlipidemia, hypertension, osteoporosis, renal disease Surgical history: Reports: other Psychiatric history: Reports: no psych history - Social History Smoking Status: Former smoker Smokeless Tobacco Status: No Alcohol use: Reports: none Drug use: Reports: none Physical Exam - General Limitations: no limitations General appearance: alert, in no apparent distress - Head Head exam: atraumatic, normocephalic - Eye Eye exam: Present: normal appearance - ENT ENT exam: normal exam - Neck Neck exam: Present: normal inspection, full ROM - Chest Chest inspection: Present: normal inspection, symmetric chest wall rise - Respiratory Respiratory exam: Present: other (Diminished breath sounds bilaterally with end expiratory wheezing on the right greater than left) - Cardiovascular Cardiovascular exam: Present: regular rate, normal rhythm, normal heart sounds - Abdominal Exam Abdominal exam: Present: soft, Non-Tender. Absent: tenderness - Extremities Exam Extremities exam: Present: normal inspection, full ROM - Expanded Upper Extremity Exam Shoulder exam: Present: normal inspection, full ROM Arm exam: Present: normal inspection, full ROM Elbow exam: Present: normal inspection, full ROM Forearm/Wrist exam: Present: normal inspection, full ROM Hand exam: Present: normal inspection, full ROM - Expanded Lower Extremity Exam Hip/Pelvis exam: Present: normal inspection, full ROM Upper leg exam: Present: normal inspection, full ROM Knee exam: Present: normal inspection, full ROM Lower leg exam: Present: normal inspection, full ROM, swelling (2+ pitting) Ankle exam: Present: normal inspection, full ROM Foot/toe exam: Present: normal inspection, full ROM - Neurological Exam Neurological exam: Present: other (GCS 15. Nonfocal.) - Skin Skin exam: Present: warm, dry Course Course Narrative: Patient seen and examined. Hypoxic on 5 L nasal cannula at 89%. Patient placed on an oxy mask with improvement. We will get an EKG, chest x-ray as well as labs including troponin. We will also give her DuoNeb treatment and Solu-Medrol. - Reevaluation(s) Reevaluation #1: Discussed results of imaging and labs with the patient. Concerning for developing pneumonia. She is agreeable with being admitted. Vital Signs Temperature 97.4 F L 02/15/18 12:57 Pulse Rate 72 02/15/18 12:57 Respiratory Rate 18 02/15/18 12:57 Blood Pressure 163/73 02/15/18 12:57 O2 Sat by Pulse Oximetry 78 02/15/18 12:57 Temperature 97.4 F L 02/15/18 12:57 Pulse Rate 78 02/15/18 15:08 Respiratory Rate 18 02/15/18 15:08 Blood Pressure 169/93 02/15/18 15:08 O2 Sat by Pulse Oximetry 98 02/15/18 15:08 Oxygen Delivery Oxygen Delivery Non Rebreather Mask Shortness of Breath/Dyspnea - MDM Narrative Medical decision making narrative: 77-year-old female on dialysis with shortness of breath. X-ray concerning for right lower lobe pneumonia. Hemodynamically stable. Recent admission as well as dialysis so we will treat her for healthcare associated pneumonia with vancomycin and Zosyn and Levaquin which was renally dosed. Labs reviewed showing elevated creatinine consistent with her end-stage renal disease and elevated BNP which is chronic. She is admitted to the hospitalist service for further management. - Lab Data Lab results reviewed: Yes I reviewed the patient's lab results. Result diagrams: 02/15/18 13:42 02/15/18 13:42 Lab Results 02/15/18 02/15/18 02/15/18 Range/Units 13:42 13:42 13:42 WBC 5.1 (4.3-11.1) K/mcL RBC 3.02 L (3.82-4.97) M/mcL Hgb 10.6 L (11.5-15.4) g/dL Hct 31.5 L (35.3-44.9) % MCV 104.3 H (83.0-100.0) fL MCH 35.1 H (28.0-33.3) pg MCHC 33.7 (31.6-35.5) g/dL RDW 13.5 (11.5-14.5) % Plt Count 160 (140-400) K/mcL MPV 10.0 (9.4-12.4) fL Immature Gran % 0.2 (0-4) % Seg Neutrophils % 81.1 % Lymphocytes % 11.2 % Monocytes % 6.5 % Eosinophils % 0.6 % Basophils % 0.4 % Neutrophils # 4.1 (1.6-8.9) K/mcL Lymphocytes # 0.6 (0.6-4.6) K/mcL Monocytes # 0.3 (0.0-1.3) K/mcL Eosinophils # 0.0 (0.0-0.6) K/mcL Basophils # 0.0 (0.0-0.2) K/mcL Sodium 136 (136-145) mEq/L Potassium 4.1 (3.5-5.1) mEq/L Chloride 97 L (98-107) mEq/L Carbon Dioxide 30 H (23-29) mEq/L BUN 19 (8-23) mg/dL Creatinine 3.28 H (0.60-1.20) mg/dL Est GFR ( Amer) 17 L (> 60) Est GFR (Non-Af Amer) 14 L (> 60) BUN/Creatinine Ratio 6 (6-26) Glucose 90 (70-105) mg/dL Calculated Osmolality 284 (280-300) Calcium 9.7 (8.6-10.3) mg/dL Troponin I 0.03 (< 0.04) ng/mL B-Natriuretic Peptide 4296 H (Less than 100) pg/mL - Radiology Data Radiology results reviewed: Yes I reviewed the patient's radiology results. Chest X-Ray 02/15/18 13:17 IMPRESSION: Small bilateral pleural effusions and associated consolidation which could represent atelectasis or pneumonia. D/ / Shant Velasquez MD / Shant Velasquez MD Interpreting Provider: Shant Velasquez MD - EKG Data EKG attestation: Yes I reviewed and interpreted this EKG. EKG results narrative: EKG demonstrates sinus rhythm with first-degree AV block with a rate of 70 bpm. Left axis deviation. Prolonged [place] interval of 2:15. Other intervals normal. Normal R-wave progression. No gross ST elevations or depressions. No acute ischemic findings. No significant EKG changes from previous on 01/06/18. S.B.A.R. - Willem.Mary Jo.Joseph Situation: Demographics, MOA Background: Presenting Complaint, Relevant PMH, Meds, & Allergies Assessment: Vital Signs, Course and respsone to treatment, Exam Concerns, Patient/Family Expectation, Pertinant Lab Results Recommendation: Barrier(s) to disposition, Recommendation based on pending studies, treatments, or consults S.B.Joseph Report Given to: Benny Barkley Repor Time: 16:37
[2018-02-15 14:07] LABS: Basophils % 0.4 %; Eosinophils % 0.6 %; Hematocrit 31.5 % (35.3-44.9); Hemoglobin 10.6 g/dL (11.5-15.4); Immature Granulocytes % 0.2 % (0-4); Lymphocytes % 11.2 %; Mean Corpuscular HGB Conc 33.7 g/dL (31.6-35.5); Mean Corpuscular Hemoglobin 35.1 pg (28.0-33.3); Mean Corpuscular Volume 104.3 fL (83.0-100.0); Monocytes % 6.5 %; Platelet Count 160 K/mcL (140-400); Red Blood Count 3.02 M/mcL (3.82-4.97); Red Cell Distribution Width 13.5 % (11.5-14.5); Segmented Neutrophils % 81.1 %
[2018-02-15 14:08] LABS: Lymphocytes # 0.6 K/mcL (0.6-4.6); Monocytes # 0.3 K/mcL (0.0-1.3); Neutrophils # 4.1 K/mcL (1.6-8.9)
[2018-02-15 14:19] LABS: Troponin I 0.03 ng/mL (< 0.04)
[2018-02-15 14:20] LABS: Calcium 9.7 mg/dL (8.6-10.3); Potassium 4.1 mEq/L (3.5-5.1)
[2018-02-15] MEDS ORDERED: Piperacillin/Tazobactam 3.375 GM in 0.9 % Sodium Chloride Mini Bag 100 ML IVPB ONE (14:39)
[2018-02-15] MEDS ORDERED: Levofloxacin 250 MG/50 ML 250 MG/50 ML BAG IVPB ONE (14:39)
--- NOTE | 2018-02-15 17:11 | Emergency Department Note ---
Disposition Clinical Impression: Hypoxia, Healthcare-associated pneumonia, End stage renal disease, Elevated brain natriuretic peptide (BNP) level Disposition: Admitted As Inpatient Condition: Good General Adult HPI - General Chief complaint: ED Shortness of Breath/Dyspnea Stated complaint: Oxygen levels are low Time Seen by Provider: 02/15/18 13:08 Source: patient Mode of arrival: wheelchair Limitations: no limitations - History of Present Illness Pain Scale: 0 - Related Data Home Medications Medication Instructions Recorded Confirmed Albuterol Sulfate [Ventolin Hfa] 2 puff IH Q4H PRN 10/12/16 02/15/18 Allopurinol [Zyloprim] 100 mg PO DAILY 10/12/16 02/15/18 Aspirin 81 mg PO DAILY 10/12/16 02/15/18 Atorvastatin [Lipitor] 40 mg PO HS 10/12/16 02/15/18 Budesonide/Formoterol 160/4.5 2 puff IH BIDR 10/12/16 02/15/18 [Symbicort 160/4.5] Furosemide [Lasix] 20 mg PO QPM 10/12/16 02/15/18 Furosemide [Lasix] 40 mg PO QAM 10/12/16 02/15/18 Metoprolol XL (24 HR) Succ [Toprol 50 mg PO DAILY 01/14/17 02/15/18 Xl] Loratadine [Claritin] 10 mg PO DAILY 03/11/17 02/15/18 Sevelamer [Renvela] 4,000 mg PO TIDWM 03/11/17 02/15/18 Pregabalin [Lyrica] 50 mg PO BID 11/22/17 02/15/18 B Complex W-C No.20/Folic Acid 1 mg PO DAILY 01/01/18 02/15/18 [Virt-Caps Softgel] Ipratropium/Albuterol Neb [Duoneb] 3 ml IH Q6HR 02/15/18 02/15/18 Previous Rx's Medication Instructions Recorded Losartan [Cozaar] 50 mg PO BID #60 tablet 03/14/17 Levothyroxine [Synthroid] 37.5 mcg PO 0630 #30 tablet 01/17/18 amLODIPine [Norvasc] 10 mg PO BID #60 tablet 01/17/18 Allergies Allergy/AdvReac Type Severity Reaction Status Date / Time codeine Allergy Rash Verified 02/15/18 15:54 gabapentin Allergy Itching Verified 02/15/18 15:54 Constitutional: Denies: fever Cardiovascular: Denies: chest pain Respiratory: Reports: cough, dyspnea Gastrointestinal: Denies: abdominal pain, nausea, vomiting Past Medical History - Past Medical History Medical history: Reports: asthma, atrial fibrillation, COPD, DVT, dialysis, hyperlipidemia, hypertension, osteoporosis, renal disease Surgical history: Reports: other Psychiatric history: Reports: no psych history - Social History Smoking Status: Former smoker Smokeless Tobacco Status: No Alcohol use: Reports: none Drug use: Reports: none Physical Exam - General Limitations: no limitations General appearance: alert, in no apparent distress Course Vital Signs Temperature 97.4 F L 02/15/18 12:57 Pulse Rate 72 02/15/18 12:57 Respiratory Rate 18 02/15/18 12:57 Blood Pressure 163/73 02/15/18 12:57 O2 Sat by Pulse Oximetry 78 02/15/18 12:57 Temperature 98.3 F 02/15/18 19:33 Pulse Rate 81 02/15/18 19:33 Respiratory Rate 20 02/15/18 19:33 Blood Pressure 173/71 02/15/18 19:33 O2 Sat by Pulse Oximetry 91 02/15/18 19:33 Oxygen Delivery Oxygen Delivery Oximizer Medical Decision Making - Lab Data Result diagrams: 02/15/18 13:42 02/15/18 13:42 Lab Results 02/15/18 02/15/18 02/15/18 Range/Units 13:42 13:42 13:42 WBC 5.1 (4.3-11.1) K/mcL RBC 3.02 L (3.82-4.97) M/mcL Hgb 10.6 L (11.5-15.4) g/dL Hct 31.5 L (35.3-44.9) % MCV 104.3 H (83.0-100.0) fL MCH 35.1 H (28.0-33.3) pg MCHC 33.7 (31.6-35.5) g/dL RDW 13.5 (11.5-14.5) % Plt Count 160 (140-400) K/mcL MPV 10.0 (9.4-12.4) fL Immature Gran % 0.2 (0-4) % Seg Neutrophils % 81.1 % Lymphocytes % 11.2 % Monocytes % 6.5 % Eosinophils % 0.6 % Basophils % 0.4 % Neutrophils # 4.1 (1.6-8.9) K/mcL Lymphocytes # 0.6 (0.6-4.6) K/mcL Monocytes # 0.3 (0.0-1.3) K/mcL Eosinophils # 0.0 (0.0-0.6) K/mcL Basophils # 0.0 (0.0-0.2) K/mcL Sodium 136 (136-145) mEq/L Potassium 4.1 (3.5-5.1) mEq/L Chloride 97 L (98-107) mEq/L Carbon Dioxide 30 H (23-29) mEq/L BUN 19 (8-23) mg/dL Creatinine 3.28 H (0.60-1.20) mg/dL Est GFR ( Amer) 17 L (> 60) Est GFR (Non-Af Amer) 14 L (> 60) BUN/Creatinine Ratio 6 (6-26) Glucose 90 (70-105) mg/dL Calculated Osmolality 284 (280-300) Calcium 9.7 (8.6-10.3) mg/dL Troponin I 0.03 (< 0.04) ng/mL B-Natriuretic Peptide 4296 H (Less than 100) pg/mL Attestation Statement - Attestation Attestation: I examined this patient and my medical decision-making was reviewed with the Resident Physician, Dr. Aiken. I agree with the documented findings, disposition and treatment plan as described except to the extent set forth below. Patient is a 77-year-old white female who is end-stage renal disease on hemodialysis, history of COPD and CHF who presents the emergency department from dialysis, unable to finish her dialysis session today due to gradually worsening shortness of breath. Patient states she "has not felt well" over the past 48 hours with occasional nagging cough has been nonproductive and generalized fatigue. Patient denies any fevers or chills, no nasal congestion and sore throat or difficulty swallowing, no chest pain pressure or heaviness, no lightheadedness or syncope, no abdominal pain or flank pain. Patient states she was on dialysis for approximately 2 hours and then they stopped her dialysis session and sent her to the emergency department. On arrival here she was hypoxic on room air with increased work of breathing placed on mask. I agree with patient's physical exam findings as documented. Patient hypoxic on room air on initial assessment evaluated on arrival to ED and assessment started at bedside. Patient's EKG with was negative for any acute ischemia, she was placed on supplemental O2 at bedside with improvement in her room air sats. Patient had labs drawn and sent, chest x-ray was obtained, she was administered breathing treatments and steroids on arrival as well as aspirin. Patient's chest x-ray showed trace pleural effusion in the bases but consolidation present that is new concerning for pneumonia. Patient will be started on antibiotics for community-acquired pneumonia. Otherwise her vitals remained stable she her oxygen saturation is much improved on supplemental O2. She denies any history of prior intubation for exacerbation of COPD. Patient will be admitted to the hospitalist service for pneumonia with hypoxia and elevated BP [employer]. Case was discussed with hospitalist to accept patient for admission and patient's status is improved at this time.
[2018-02-15] MEDS ORDERED: Naloxone 0.4 MG/ML INJ IVP PRN (18:18)
--- NOTE | 2018-02-15 18:51 | Internal Med History&Physical ---
Date of Encounter: 02/15/18 Time of Encounter: 18:40 Internal Medicine - H&P: HPI Chief complaint: shortness of breath Admitted From: Emergency Dept Plans for Post Hospital Care: Home History of present illness: Ms. Carmona is a 77 year old female who is a background history of a hypertension, dyslipidemia, osteoporosis, COPD, atrial fibrillation, end-stage renal disease on her dialysis. Patient was undergoing dialysis today. During the dialysis she took almost 2 hours of treatment. At this point it was realized that she was persistently short of breath. This was the reason she was pulled off the dialysis. Patient was persistently having cough along with worsening shortness of breath. This was the reason she was sent to emergency room for further evaluation. Patient denies chest pain, nausea, vomiting, dizziness and diarrhea. Workup in the emergency room: Patient was evaluated in the emergency room. Baseline labs were drawn. Patient was given supplemental oxygen. Patient was given antibiotics. Reason for admission: Possibility of a pneumonia versus fluid overload. Family history: Noncontributory. Past Med Surg Social Fam HX - Past Medical History Medical history: asthma, atrial fibrillation, COPD, DVT, dialysis, hyperlipidemia, hypertension, osteoporosis, renal disease Psychiatric history: no psych history - Past Surgical History Surgical History: other - Social History Smoking Status: Former smoker Smokeless Tobacco Status: No Alcohol use: none Drug use: none - Family History Mother Living Status: Hx Family Cardiac Disorders: No Hx Family Respiratory Disorders: No Hx Family Cancer: Yes (Colon) Hx Family GI Disorders: No Hx Family Endocrine Disorder: Yes (Borderline DM) Hx Family Neuromuscular Disorders: No Hx Family Neurologic Disorders: No Hx Family HEENT Disorders: No Hx Family Autoimmune Disorders: No Internal Medicine - H&P: Meds Albuterol Sulfate [Ventolin Hfa] 2 puff IH Q4H PRN 10/12/16 [History] Allopurinol [Zyloprim] 100 mg PO DAILY 10/12/16 [History] Aspirin 81 mg PO DAILY 10/12/16 [History] Atorvastatin [Lipitor] 40 mg PO HS 10/12/16 [History] Budesonide/Formoterol 160/4.5 [Symbicort 160/4.5] 2 puff IH BIDR 10/12/16 [ History] Furosemide [Lasix] 20 mg PO QPM 10/12/16 [History] Furosemide [Lasix] 40 mg PO QAM 10/12/16 [History] Metoprolol XL (24 HR) Succ [Toprol Xl] 50 mg PO DAILY 01/14/17 [History] Loratadine [Claritin] 10 mg PO DAILY 03/11/17 [History] Sevelamer [Renvela] 4,000 mg PO TIDWM 03/11/17 [History] Losartan [Cozaar] 50 mg PO BID #60 tablet 03/14/17 [Rx] Pregabalin [Lyrica] 50 mg PO BID 11/22/17 [History] B Complex W-C No.20/Folic Acid [Virt-Caps Softgel] 1 mg PO DAILY 01/01/18 [ History] Levothyroxine [Synthroid] 37.5 mcg PO 0630 #30 tablet 01/17/18 [Rx] amLODIPine [Norvasc] 10 mg PO BID #60 tablet 01/17/18 [Rx] Ipratropium/Albuterol Neb [Duoneb] 3 ml IH Q6HR 02/15/18 [History] 3 Allergy/AdvReac Type Severity Reaction Status Date / Time codeine Allergy Rash Verified 02/15/18 15:54 gabapentin Allergy Itching Verified 02/15/18 15:54 All Systems PM: A 10-system review of systems was performed and is negative for pertinent findings except as documented above in the HPI. - Constitutional Constitutional: no chills, no fever(s), no night sweats - EENT Eyes: no change in vision, no discharge, no pain, no photophobia Ears: no ear discharge, no ear pain, no tinnitus Nose, mouth and throat: no dysphagia, no nasal discharge, no neck pain, no sore throat - Cardiovascular Cardiovascular ROS IM: dyspnea, dyspnea on exertion, no chest pain, no diaphoresis, no lightheadedness, no palpitations, no syncope - Respiratory Respiratory: no cough, no dyspnea, no wheezing, no excessive phlegm production - Gastrointestinal Gastrointestinal: no abdominal pain, no diarrhea, no hematemesis, no hematochezia, no melena, no nausea, no vomiting - Genitourinary Genitourinary: no change in urinary stream, no dysuria, no flank pain, no hematuria - Musculoskeletal Musculoskeletal ROS IM: no numbness, no tingling - Integumentary Integumentary IM: no rash, no unusual bruising - Neurological Neurological ROS: no confusion, no convulsions, no focal weakness, no numbness, no tingling, no tremor(s) - Hematologic/Lymphatic Hematologic/Lymphatic: no easy bruising - Constitutional Vitals: Temp Pulse Resp BP Pulse Ox 97.4 F L 78 16 160/74 98 02/15/18 12:57 02/15/18 15:08 02/15/18 17:43 02/15/18 17:43 02/15/18 15:08 General appearance: Present: A&O X 3, pleasant, no acute distress, answers questions appropriately - Head Head exam: Present: atraumatic, normocephalic - Eye Eye exam: Present: PERRL, conjuntiva pink, sclera anicteric Pupils: Present: PERRL - Neck Neck exam general surgery: Present: supple, trachea midline. Absent: lymphadenopathy - Respiratory Respiratory exam: Present: CTAB. Absent: accessory muscle use, rales, rhonchi, wheezes - Cardiovascular Cardiovascular exam: Present: RRR, +S1, +S2. Absent: diastolic murmur, gallop, rubs, systolic murmur - GI/Abdominal GI/Abdominal exam: Present: normal bowel sounds, soft, no peritoneal signs. Absent: distended, tenderness - Extremities Exam Extremities exam: Present: warm, radial pulses palpable and symmetrical. Absent : calf tenderness, cyanotic, pedal edema - Neurological Exam Neurological exam: Present: CN II-XII intact, oriented X3, no focal deficits. Absent: pronater drift, facial droop, speech deficit - Skin Skin exam: Present: dry, intact Internal Med - H&P Results - Labs CBC & Chem 7: 02/15/18 13:42 02/15/18 13:42 - Assessment and plan (1) Pulmonary edema Current Visit: No Status: Acute Assessment and plan: 77/female Persistent shortness of breath during the dialysis. Etiology of this shortness of breath is multifactorial at this point. A) possibility of pulmonary edema is extremely high -Patient does not have signed/symptoms of pneumonia. -Elevated BNP: Above 4000. Reason for pulmonary edema at this point is unknown. We will cycle troponin: To rule out cardiac event. Antibiotics are given. I examined this patient in the emergency room #11. Along with the emergency room staff was present. Plan of care explained to the patient. She verbalized understanding. Qualifiers: Chronicity: acute Qualified Code(s): J81.0 - Acute pulmonary edema (2) HCAP (healthcare-associated pneumonia) Current Visit: No Status: Suspected Assessment and plan: Possibility of her healthcare associated pneumonia is low for the following reasons A) patient does not have a fever B) patient does not have a elevated white blood cell count C) patient does not have any productive cough with the change of the sputum color. D) even though chest x-ray suggestive of a pneumonia upon careful examination, it looks more of a fluid overload and pneumonia. E) patient received antibiotics in the emergency room. I will hold antibiotics for now. I have discussed this case with Dr. Sorto. He agreed with the plan. (3) ESRD on dialysis Current Visit: No Status: Chronic Assessment and plan: Patient is known to have end-stage renal disease. she is presently undergoing dialysis Tuesday/Tuesday/Tuesday. Today while undergoing dialysis she had an episode of shortness of breath. We will closely monitor patient. (4) Elevated brain natriuretic peptide (BNP) level Current Visit: Yes Status: Acute Assessment and plan: Patient's BNP is elevated. This shows that there is a possibility of a fluid overload which is responsible for this. (5) HTN (hypertension) Current Visit: No Status: Chronic Assessment and plan: Patient is known to have essential hypertension. At this point patient's blood pressure is very well controlled. Patient's blood pressure is within acceptable range. We will resume home medication. Close monitoring of the patient's blood pressure. Qualifiers: Hypertension type: essential hypertension Qualified Code(s): I10 - Essential (primary) hypertension (6) DVT prophylaxis Current Visit: No Status: Acute Assessment and plan: Heparin Medical decision making: This patient has a moderate to severe risk of worsening in spite of being on appropriate medication due to the underlying chronic comorbid conditions. - Time Spent With Patient Total time spent is greater than 50% in coordination of care (as documented) at patient's floor/unit and/or counseling patient:
[2018-02-15] MEDS: amLODIPine 5 MG TABLET PO SCH (19:42)
[2018-02-15] MEDS: Pregabalin 50 MG CAPSULE PO SCH (19:42)
[2018-02-15] MEDS: Budesonide/Formoterol 160/4.5 MDI IH SCH (21:47)
[2018-02-15] MEDS ORDERED: Ipratropium/Albuterol Neb 3 ML IH SCH (22:00)
[2018-02-16] MEDS: *HR* Heparin 5,000 UNIT/ML VIAL SQ SCH ×3 (00:59→16:51)
[2018-02-16 01:10] LABS: Basophils % 0.3 %; Hematocrit 28.9 % (35.3-44.9); Hemoglobin 9.7 g/dL (11.5-15.4); Immature Granulocytes % 0.7 % (0-4); Lymphocytes # 0.2 K/mcL (0.6-4.6); Lymphocytes % 7.7 %; Mean Corpuscular HGB Conc 33.6 g/dL (31.6-35.5); Mean Corpuscular Hemoglobin 34.5 pg (28.0-33.3); Mean Corpuscular Volume 102.8 fL (83.0-100.0); Mean Platelet Volume 10.4 fL (9.4-12.4); Monocytes % 1.3 %; Neutrophils # 2.7 K/mcL (1.6-8.9); Platelet Count 160 K/mcL (140-400); Red Blood Count 2.81 M/mcL (3.82-4.97); Red Cell Distribution Width 13.5 % (11.5-14.5)
[2018-02-16 01:17] LABS: INR 1.1; Prothrombin Time 11.5 Seconds (9.4-12.1)
[2018-02-16 01:20] LABS: Activated Partial Thrombo Time 29.5 Seconds (26.0-36.0)
[2018-02-16 01:33] LABS: Albumin/Globulin Ratio 1.8 (1.1-2.2); Bilirubin,Total 0.6 mg/dL (0.3-1.0); Calcium 9.6 mg/dL (8.6-10.3); Chol/HDL Ratio 1.9 (0-4.9); Globulin 2.2 g/dL (2.4-3.5); Magnesium 2.1 mg/dL (1.6-2.6); Phosphorous 2.9 mg/dL (2.7-4.5); Potassium 4.8 mEq/L (3.5-5.1); Total Protein 6.2 g/dL (6.4-8.9)
[2018-02-16 01:46] LABS: Thyroid Stimulating Hormone 2.801 mcIU/mL (0.340-5.600)
[2018-02-16] MEDS: Levalbuterol Neb 1.25 MG/3 ML IH SCH ×4 (04:10→21:21)
[2018-02-16 08:51] LABS: Hepatitis B Surface Antigen Nonreactive (Nonreactive)
[2018-02-16] MEDS ORDERED: 0.9 % Sodium Chloride 250 ML IVC PRN (09:06)
[2018-02-16] MEDS ORDERED: 0.9 % Sodium Chloride 1,000 ML PRIME SCH (09:15)
[2018-02-16] MEDS ORDERED: 0.9 % Sodium Chloride 1,000 ML ONE (09:18)
--- NOTE | 2018-02-16 09:57 | Nephrology Consult Note ---
Date of Encounter: 02/16/18 Time of Encounter: 09:05 Assessment and Plan (1) ESRD on dialysis Current Visit: No Status: Chronic Hypoxia, most likely fluid overload. BNP > 4000. Concern for mucus plugging given prior history. Will do UF today, orders given, and see if fluid removal helps cardiopulmonary status. If no improvement recommend CT of chest to R/O mucus plugging with Pulm consult if needed. History of Present Illness - Reason for Consult end stage renal disease - History of Present Illness Ms. Carmona is a 77 year old female who dialyzes at [facility]. Other PMH -asthma, atrial fibrillation, COPD, DVT, dialysis, hyperlipidemia, hypertension , osteoporosis, renal disease, multiple bronchocopy for repeated mucus plugging. Ms. Carmona was on HD yesterday and had increasing shortnessof breath while on treatment. She was taken off after approximately 2 hours of HD and brought to ER for worsening SOB and cough. BNP > 4000. CXR-Small bilateral pleural effusions and associated consolidation which could represent atelectasis or pneumonia. Prior history of muliple broncoscopy for recurrent mucus plugging/ventilator support. At time of consult she is sitting on edge of bed, oxymask. She states is breathing better but gets SOB with minimal activity. Expiratory wheeze A/P. LE 2 + pitting edema. Past Med Surg Social Fam HX - Past Medical History Medical history: asthma, atrial fibrillation, COPD, DVT, dialysis, hyperlipidemia, hypertension, osteoporosis, renal disease Psychiatric history: no psych history - Past Surgical History Surgical History: other - Social History Smoking Status: Former smoker Smokeless Tobacco Status: No Alcohol use: none Drug use: none - Family History Mother Living Status: Hx Family Cardiac Disorders: No Hx Family Respiratory Disorders: No Hx Family Cancer: Yes (Colon) Hx Family GI Disorders: No Hx Family Endocrine Disorder: Yes (Borderline DM) Hx Family Neuromuscular Disorders: No Hx Family Neurologic Disorders: No Hx Family HEENT Disorders: No Hx Family Autoimmune Disorders: No Medications and Allergies Albuterol Sulfate [Ventolin Hfa] 2 puff IH Q4H PRN 10/12/16 [History] Allopurinol [Zyloprim] 100 mg PO DAILY 10/12/16 [History] Aspirin 81 mg PO DAILY 10/12/16 [History] Atorvastatin [Lipitor] 40 mg PO HS 10/12/16 [History] Budesonide/Formoterol 160/4.5 [Symbicort 160/4.5] 2 puff IH BIDR 10/12/16 [ History] Furosemide [Lasix] 20 mg PO QPM 10/12/16 [History] Furosemide [Lasix] 40 mg PO QAM 10/12/16 [History] Metoprolol XL (24 HR) Succ [Toprol Xl] 50 mg PO DAILY 01/14/17 [History] Loratadine [Claritin] 10 mg PO DAILY 03/11/17 [History] Sevelamer [Renvela] 4,000 mg PO TIDWM 03/11/17 [History] Losartan [Cozaar] 50 mg PO BID #60 tablet 03/14/17 [Rx] Pregabalin [Lyrica] 50 mg PO BID 11/22/17 [History] B Complex W-C No.20/Folic Acid [Virt-Caps Softgel] 1 mg PO DAILY 01/01/18 [ History] Levothyroxine [Synthroid] 37.5 mcg PO 0630 #30 tablet 01/17/18 [Rx] amLODIPine [Norvasc] 10 mg PO BID #60 tablet 01/17/18 [Rx] Ipratropium/Albuterol Neb [Duoneb] 3 ml IH Q6HR 02/15/18 [History] 3 Allergy/AdvReac Type Severity Reaction Status Date / Time codeine Allergy Rash Verified 02/15/18 15:54 gabapentin Allergy Itching Verified 02/15/18 15:54 Review of Systems All Systems: reviewed and no additional remarkable complaints except as stated Exam - Vital Signs Vital signs: Initial Vital Signs Temp Pulse Resp BP Pulse Ox 97.4 F L 72 18 163/73 78 02/15/18 12:57 02/15/18 12:57 02/15/18 12:57 02/15/18 12:57 02/15/18 12:57 Vital Signs - Last 8 Hours Temp Pulse Resp BP Pulse Ox 02/16/18 07:49 98.7 F 88 18 153/77 93 02/16/18 04:10 14 94 02/16/18 03:55 98.5 F 93 19 155/78 92 Intake and Output 02/15/18 02/16/18 02/16/18 23:59 07:59 15:59 Intake Total 240 / 240 Balance 240 / 240 Intake: Oral 240 / 240 Other: Meal Breakfast Percent of Meal Consumed 95% # Voids 0 # Bowel Movements 0 Weight 57.776 kg Patient Weight 02/16/18 23:59 Weight 57.776 kg - General Appearance General appearance: well-developed, well-nourished, appears started age EENT: mucous membranes moist Neck: no JVD Respiratory: wheezing Cardiology: edema, regular rate, regular rhythm - Dialysis Access Dialysis Vascular Access: Arteriovenous Fistula Gastrointestinal: normoactive bowel sounds, no tenderness Integumentary: warm and dry Neurologic: alert and oriented x3 Results - Lab Results 02/16/18 00:59 02/16/18 00:59 Most recent lab results Calcium 9.6 mg/dL (8.6-10.3) 02/16/18 00:59 Phosphorus 2.9 mg/dL (2.7-4.5) 02/16/18 00:59 Magnesium 2.1 mg/dL (1.6-2.6) 02/16/18 00:59 Consult Discharge Plan - Plan Referrals: Vladimir Chaiedz MD [Primary Care Provider] -
[2018-02-16] MEDS: Furosemide 40 MG/4 ML VIAL IVP SCH ×2 (10:10→10:24)
[2018-02-16] MEDS: Metoprolol XL (24 HR) Succ 50 MG TAB.ER.24H PO SCH (10:23)
[2018-02-16] MEDS: Loratadine 10 MG TABLET PO SCH ×2 (10:23→10:36)
[2018-02-16] MEDS: amLODIPine 5 MG TABLET PO SCH ×2 (10:23→20:22)
[2018-02-16] MEDS: Aspirin 81 MG TAB.CHEW PO SCH (10:23)
[2018-02-16] MEDS: Pregabalin 50 MG CAPSULE PO SCH ×2 (10:23→20:22)
[2018-02-16] MEDS: Budesonide/Formoterol 160/4.5 MDI IH SCH ×2 (10:49→21:21)
--- NOTE | 2018-02-16 13:27 | Electrocardiograph Report ---
[place] [facility] Test Date: 2018-02-15 Pat Name: Monisha Carmona Department: 102 Room: 2A14 Gender: F Legal Administrator: Edna : 1940 Requested By: Yang Aiken Order Number: [id number] Reading MD: Juan Meadows MD Measurements Intervals [place] Rate: 70 P: 40 MS: 215 QRS: -49 QRSD: 89 T: 60 QT: 449 QTc: 470 Interpretive Statements SINUS RHYTHM WITH FIRST DEGREE AV BLOCK LEFT ATRIAL ENLARGEMENT [-0.15mV P WAVE IN V1/V2] MARKED LEFT AXIS DEVIATION [QRS AXIS < -30] LEFT VENTRICULAR HYPERTROPHY AND ST-T CHANGE [VOLTAGE CRITERIA PLUS ST/T ABNORMALITY] Electronically Signed On 02-16-2018 13:26:06 EDT by Juan Meadows MD
[2018-02-16] MEDS: Acetylcysteine 10% 2 ML INHSOL IH SCH ×2 (17:15→21:21)
[2018-02-16] MEDS: Furosemide 20 MG TABLET PO SCH ×2 (17:48→19:04)
[2018-02-16] MEDS: Renal Vitamin 1 MG CAPSULE PO SCH (17:48)
[2018-02-16] MEDS: Levofloxacin 750 MG/150 ML 750 MG/150 ML BAG IVPB SCH (17:48)
--- NOTE | 2018-02-16 20:59 | Internal Med Progress Note ---
Date of Encounter: 02/16/18 Time of Encounter: 16:17 - Assessment and plan (1) Acute on chronic respiratory failure with hypoxia Current Visit: Yes Status: Acute Assessment and plan: Continue supplemental O2 with oxymask, wean as tolerated to home 3L by NC. Continue nebs. Added guaifenesin, nasal steroid, mucomyst inhaled, chest PT, deep breathing, and incentive spirometer. Will get CT chest given history of mucous plugging and no definitive improvement after hemodialysis. Treat underlying causes as per below. (2) HCAP (healthcare-associated pneumonia) Current Visit: Yes Status: Suspected Assessment and plan: Given no improvement of respiratory failure, will get CT chest and add back antibiotic - levaquin 750 mg IV QD (will consult pharmacist about renal dosing). (3) Pulmonary edema Current Visit: Yes Status: Acute Assessment and plan: Some improvement s/p hemodialysis, but decompensates with simple exertion like eating. Nephrology consulted; appreciate input. Will obtain CT chest as per above. Patient has poor urine output at baseline. She does not want to take IV lasix, so will restart home PO lasix regimen. Qualifiers: Chronicity: acute Qualified Code(s): J81.0 - Acute pulmonary edema (4) Elevated brain natriuretic peptide (BNP) level Current Visit: Yes Status: Acute Assessment and plan: Patient does not want to take IV lasix, so will resume home PO lasix. Monitor strict I&Os and daily weights. Continue home medications. (5) ESRD on dialysis Current Visit: Yes Status: Chronic Assessment and plan: Nephrology consulted; appreciate input. Continue hemodialysis as scheduled. (6) HTN (hypertension) Current Visit: Yes Status: Chronic Assessment and plan: Continue home medications. Qualifiers: Hypertension type: essential hypertension Qualified Code(s): I10 - Essential (primary) hypertension (7) DVT prophylaxis Current Visit: No Status: Acute Assessment and plan: Continue SQ heparin. - Time Spent With Patient Total time spent is greater than 50% in coordination of care (as documented) at patient's floor/unit and/or counseling patient: less than 15 minutes - Subjective Interval history: Patient had no acute events overnight. She is feeling better after dialysis today. No SOB at present time. Nurse has weaned oxygen down to 5L by oxymask. However, while eating dinner, she had issues with hypoxia and SOB; oxygen increased back up to 9L by oxymask. She denies chest pain, fever, chills, nausea, or vomiting. She has no complaints at this time. - Constitutional Vitals: Temp Pulse Resp BP Pulse Ox 98.4 F 74 16 161/73 87 02/16/18 20:05 02/16/18 20:05 02/16/18 20:05 02/16/18 20:05 02/16/18 20:28 General appearance: Present: cooperative, A&O X 3, pleasant, no acute distress, answers questions appropriately - Respiratory Respiratory exam: Absent: accessory muscle use, rales, rhonchi, wheezes Additional comments: Mildly labored WOB, decreased breath sounds at bilateral lung bases - Cardiovascular Cardiovascular exam: Present: RRR, +S1, +S2. Absent: diastolic murmur, gallop, rubs, systolic murmur Additional comments: No BLE edema - GI/Abdominal GI/Abdominal exam: Present: normal bowel sounds, soft. Absent: distended, hepatomegaly, mass, splenomegaly, tenderness - Psychiatric Psychiatric exam: Present: normal affect, normal mood. Absent: agitated, anxious, depressed - Skin Skin exam: Present: dry, intact, warm. Absent: cyanosis, rash Internal Medicine: Result - Labs CBC & Chem 7: 02/16/18 00:59 02/16/18 00:59 Labs: Short CBC 02/16/18 Range/Units 00:59 WBC 3.0 L (4.3-11.1) K/mcL Hgb 9.7 L (11.5-15.4) g/dL Hct 28.9 L (35.3-44.9) % Plt Count 160 (140-400) K/mcL Neutrophils # 2.7 (1.6-8.9) K/mcL BMP 02/16/18 00:59 Sodium 134 L Potassium 4.8 Chloride 97 L Carbon Dioxide 25 BUN 32 H Creatinine 3.97 H Glucose 264 H Calcium 9.6 Cardiac Enzymes 02/16/18 02/16/18 Range/Units 00:59 06:04 Troponin I < 0.03 0.03 (< 0.04) ng/mL Liver Function 02/16/18 Range/Units 00:59 Total Bilirubin 0.6 (0.3-1.0) mg/dL AST 31 (13-39) Units/L ALT 33 (7-52) Units/L Alkaline Phosphatase 129 H (34-104) Units/L Albumin 4.0 (3.5-5.7) g/dL - ABG Interpretation ABG results: PT/INR, D-dimer PT 11.5 Seconds (9.4-12.1) 02/16/18 00:59 - Impressions Impressions Chest CT 02/16/18 17:09 IMPRESSION: Extensive mucous plugging, especially within the lower lobes bilaterally. There is essentially complete collapse the lower lobes bilaterally. To a lesser extent, there is also mucous plugging seen within the right middle lobe, with partial collapse. Small bilateral pleural effusions. Extensive atherosclerotic disease, especially involving the great vessels, with extremely dense calcification noted in the left subclavian artery. Correlate with any clinical evidence of subclavian steal syndrome. Mild dilation of the ascending thoracic aorta measuring 4.1 cm. Continued surveillance of that is recommended. D/ / Lyle West MD / Lyle West MD Interpreting Provider: Lyle West MD Consult Discharge Plan - Plan Referrals: Vladimir Chaidez MD [Primary Care Provider] -
[2018-02-17] MEDS: *HR* Heparin 5,000 UNIT/ML VIAL SQ SCH ×3 (00:15→17:37)
[2018-02-17 00:49] LABS: Hepatitis B Surface Antibody 2.49 mIU/mL
[2018-02-17] MEDS: Acetylcysteine 10% 2 ML INHSOL IH SCH ×4 (03:26→22:25)
[2018-02-17] MEDS: Levalbuterol Neb 1.25 MG/3 ML IH SCH ×4 (03:26→22:24)
[2018-02-17 04:27] LABS: Basophils % 0.1 %; Eosinophils # 0.1 K/mcL (0.0-0.6); Eosinophils % 0.8 %; Hematocrit 28.7 % (35.3-44.9); Hemoglobin 9.7 g/dL (11.5-15.4); Immature Granulocytes % 0.5 % (0-4); Lymphocytes % 12.3 %; Mean Corpuscular HGB Conc 33.8 g/dL (31.6-35.5); Mean Corpuscular Hemoglobin 34.6 pg (28.0-33.3); Mean Corpuscular Volume 102.5 fL (83.0-100.0); Mean Platelet Volume 10.4 fL (9.4-12.4); Monocytes # 0.6 K/mcL (0.0-1.3); Monocytes % 7.9 %; Platelet Count 173 K/mcL (140-400); Red Cell Distribution Width 13.8 % (11.5-14.5); Segmented Neutrophils % 78.4 %
[2018-02-17 04:31] LABS: Neutrophils # 6.3 K/mcL (1.6-8.9)
[2018-02-17 04:46] LABS: Calcium 9.5 mg/dL (8.6-10.3); Potassium 5.8 mEq/L (3.5-5.1)
[2018-02-17] MEDS: Renal Vitamin 1 MG CAPSULE PO SCH (07:49)
[2018-02-17] MEDS: Pregabalin 50 MG CAPSULE PO SCH ×2 (07:49→21:56)
[2018-02-17] MEDS: Aspirin 81 MG TAB.CHEW PO SCH (07:49)
[2018-02-17] MEDS: Loratadine 10 MG TABLET PO SCH (07:49)
[2018-02-17] MEDS: Furosemide 40 MG TABLET PO SCH ×2 (07:49→13:13)
[2018-02-17] MEDS: Levofloxacin 750 MG/150 ML 750 MG/150 ML BAG IVPB SCH (07:51)
[2018-02-17] MEDS ORDERED: 0.9 % Sodium Chloride 250 ML IVC PRN (08:54)
[2018-02-17] MEDS ORDERED: 0.9 % Sodium Chloride 1,000 ML ONE (09:00)
[2018-02-17] MEDS ORDERED: 0.9 % Sodium Chloride 1,000 ML PRIME SCH (09:00)
--- NOTE | 2018-02-17 09:32 | Nephrology Progress Note ---
Date of Encounter: 02/17/18 Time of Encounter: 09:10 - Assessment and Plan (1) ESRD on dialysis Current Visit: Yes Status: Chronic CT chest-small bilateral pleural effusions. Extensive mucous plugging lower lobes bilaterally, especially on the left. Near complete collapse of both lower lobes. Pulmonary consult placed. Will do HD today, orders given. Subjective Interval history: Sitting up in bed, ate breakfast. UF yesterday without improvement in breathing. Oximask on. Rogers Solares at bedside. Objective - Vital Signs Vital signs: Vital Signs Temp Pulse Resp BP Pulse Ox 02/17/18 06:54 98.0 F 65 18 157/74 97 02/17/18 05:21 98.1 F 66 18 171/76 98 02/17/18 03:26 16 95 02/16/18 23:03 98.1 F 69 18 152/68 93 02/16/18 21:21 18 93 02/16/18 20:28 87 02/16/18 20:05 98.4 F 74 16 161/73 02/16/18 15:20 18 87 02/16/18 14:20 97.7 F 75 19 154/77 95 02/16/18 12:30 98.3 F 15 137/82 02/16/18 12:10 148/79 02/16/18 11:55 141/79 02/16/18 11:40 143/83 02/16/18 11:25 141/73 02/16/18 11:10 142/79 02/16/18 10:55 144/73 02/16/18 10:40 144/73 02/16/18 10:25 145/73 02/16/18 10:10 96.7 F L 21 141/83 Intake and Output 02/16/18 02/17/18 02/17/18 23:59 07:59 15:59 Intake Total 100 / 100 480 / 480 Balance 100 / 100 480 / 480 Intake: IV Fluids 100 / 100 Levaquin Premix 750mg/150 mL 100 / 100 750 mg In 150 ml @ 100 mls/hr IVPB DAILY [facility] Rx#:[id number] Oral 480 / 480 Other: Meal Breakfast Percent of Meal Consumed 90% # Voids 0 Weight 58.6 kg Patient Weight 02/17/18 23:59 Weight 58.6 kg - General Appearance General appearance: Present: well-developed, well-nourished, appears started age EENT: Present: mucous membranes moist Neck: Present: no JVD Respiratory: Present: clear Additional Comments: diminished bases Cardiology: Present: edema, regular rate, regular rhythm Additional Comments: 1-2+ LE, skin shriveling Dialysis Vascular Access: Arteriovenous Fistula Gastrointestinal: Present: normoactive bowel sounds, no tenderness Integumentary: Present: warm and dry Neurologic: Present: alert and oriented x3 - Lab 02/17/18 03:37 02/17/18 03:37 Most recent lab results Calcium 9.5 mg/dL (8.6-10.3) 02/17/18 03:37 Phosphorus 2.9 mg/dL (2.7-4.5) 02/16/18 00:59 Magnesium 2.1 mg/dL (1.6-2.6) 02/16/18 00:59 Consult Discharge Plan - Plan Referrals: Vladimir Chaidez MD [Primary Care Provider] -
--- NOTE | 2018-02-17 09:46 | Pulmonology Consult Note ---
Date of Encounter: 02/17/18 Time of Encounter: 09:00 Assessment and Plan (1) Mucus plugging of bronchi Current Visit: No Status: Acute This is very pleasant patient's unfortunately has been having recurrent problem with significant mucus plugging and her shortness of breath is most likely related to that and airway clearance with bronchodilators have been tried to the patient unfortunately with her airway structure she is not doing good and she will need bronchoscopy for therapeutic reasons and she recently had breakfast for that reason we have to wait at least 6 hours before the procedure. Patient will be nothing by mouth for bronchoscopy and she understand all the risks, alternative, benefits of the procedure. Empiric antibiotics is reasonable and continue chest physical therapy as well as dialysis for fluid management. Thank you very much for consultation. (2) Atelectasis Current Visit: No Status: Chronic (3) ESRD on dialysis Current Visit: Yes Status: Chronic History of Present Illness Consult date: 02/17/18 Requesting physician: Terence Birch Reason for consult: dyspnea Chief complaint: Shortness of breath History of present illness: This is a very pleasant 77-year-old female who is known to me from previous hospitalization and also outpatient. Patient had had multiple bronchoscopy for airway clearance due to mucous plugging of her airways. Patient with end-stage renal disease on hemodialysis and was having more shortness of breath and with cough without significant wheezing or chest pain. Patient denies any significant fever or chills and had a CT chest with the evidence of mucous plugging and pulmonary was consulted for evaluation and need for bronchoscopy. Past Med Surg Social Fam HX - Past Medical History Medical history: asthma, atrial fibrillation, COPD, DVT, dialysis, hyperlipidemia, hypertension, osteoporosis, renal disease Psychiatric history: no psych history - Past Surgical History Surgical History: other - Social History Smoking Status: Former smoker Smokeless Tobacco Status: No Alcohol use: none Drug use: none - Family History Mother Living Status: Hx Family Cardiac Disorders: No Hx Family Respiratory Disorders: No Hx Family Cancer: Yes (Colon) Hx Family GI Disorders: No Hx Family Endocrine Disorder: Yes (Borderline DM) Hx Family Neuromuscular Disorders: No Hx Family Neurologic Disorders: No Hx Family HEENT Disorders: No Hx Family Autoimmune Disorders: No Medications and Allergies Albuterol Sulfate [Ventolin Hfa] 2 puff IH Q4H PRN 10/12/16 [History] Allopurinol [Zyloprim] 100 mg PO DAILY 10/12/16 [History] Aspirin 81 mg PO DAILY 10/12/16 [History] Atorvastatin [Lipitor] 40 mg PO HS 10/12/16 [History] Budesonide/Formoterol 160/4.5 [Symbicort 160/4.5] 2 puff IH BIDR 10/12/16 [ History] Furosemide [Lasix] 20 mg PO QPM 10/12/16 [History] Furosemide [Lasix] 40 mg PO QAM 10/12/16 [History] Metoprolol XL (24 HR) Succ [Toprol Xl] 50 mg PO DAILY 01/14/17 [History] Loratadine [Claritin] 10 mg PO DAILY 03/11/17 [History] Sevelamer [Renvela] 4,000 mg PO TIDWM 03/11/17 [History] Losartan [Cozaar] 50 mg PO BID #60 tablet 03/14/17 [Rx] Pregabalin [Lyrica] 50 mg PO BID 11/22/17 [History] B Complex W-C No.20/Folic Acid [Virt-Caps Softgel] 1 mg PO DAILY 01/01/18 [ History] Levothyroxine [Synthroid] 37.5 mcg PO 0630 #30 tablet 01/17/18 [Rx] amLODIPine [Norvasc] 10 mg PO BID #60 tablet 01/17/18 [Rx] Ipratropium/Albuterol Neb [Duoneb] 3 ml IH Q6HR 02/15/18 [History] 3 Allergy/AdvReac Type Severity Reaction Status Date / Time codeine Allergy Rash Verified 02/15/18 15:54 gabapentin Allergy Itching Verified 02/15/18 15:54 All Systems: The remainder of the systems were reviewed and are negative Physical Examination Vital Signs: Vital Signs, Last 4 Hours Temp Pulse Resp BP Pulse Ox 02/17/18 06:54 98.0 F 65 18 157/74 97 General appearance: no acute distress Eyes: nonicteric ENT: oropharynx moist Neck: supple Effort: normal Inspection: hyperextended Auscultation: bilateral: diminished breath sounds Percussion: bilateral: not dull Cardiovascular: regular rate and rhythm, murmur noted Gastrointestinal: normoactive bowel sounds, non-distended Extremities: no cyanosis normal mental status, non-focal exam mood appropriate Results - Laboratory Findings CBC and BMP: 02/17/18 03:37 02/17/18 03:37 PT/INR, D-dimer PT 11.5 Seconds (9.4-12.1) 02/16/18 00:59 Abnormal lab findings: Abnormal lab results RBC 2.80 M/mcL (3.82-4.97) L 02/17/18 03:37 Hgb 9.7 g/dL (11.5-15.4) L 02/17/18 03:37 Hct 28.7 % (35.3-44.9) L 02/17/18 03:37 MCV 102.5 fL (83.0-100.0) H 02/17/18 03:37 MCH 34.6 pg (28.0-33.3) H 02/17/18 03:37 Sodium 133 mEq/L (136-145) L 02/17/18 03:37 Potassium 5.8 mEq/L (3.5-5.1) H 02/17/18 03:37 Chloride 96 mEq/L (98-107) L 02/17/18 03:37 BUN 53 mg/dL (8-23) H 02/17/18 03:37 Creatinine 5.52 mg/dL (0.60-1.20) H 02/17/18 03:37 Est GFR ( Amer) 9 (> 60) L 02/17/18 03:37 Est GFR (Non-Af Amer) 8 (> 60) L 02/17/18 03:37 Alkaline Phosphatase 129 Units/L (34-104) H 02/16/18 00:59 B-Natriuretic Peptide 4035 pg/mL (Less than 100) H 02/16/18 00:59 Serum Total Protein 6.2 g/dL (6.4-8.9) L 02/16/18 00:59 Globulin 2.2 g/dL (2.4-3.5) L 02/16/18 00:59 HDL Cholesterol 60 mg/dL (40-59) H 02/16/18 00:59 - Diagnostic Findings CT scan - chest: report reviewed, image reviewed - Clinical Findings Intake & Output: Intake & Output 02/16/18 02/17/18 02/17/18 23:59 07:59 15:59 Intake Total 100 / 100 480 / 480 Balance 100 / 100 480 / 480 Weight 58.6 kg Consult Discharge Plan - Plan Referrals: Vladimir Chaidez MD [Primary Care Provider] -
[2018-02-17] MEDS: Budesonide/Formoterol 160/4.5 MDI IH SCH ×2 (10:43→22:24)
[2018-02-17] MEDS ORDERED: Dexamethasone 4 MG/ML VIAL ONE (13:10)
[2018-02-17] MEDS ORDERED: Ondansetron 4 MG/2 ML VIAL ONE (13:10)
[2018-02-17] MEDS ORDERED: *HR* FentaNYL (PF) 100 MCG/2 ML VIAL ONE (13:10)
[2018-02-17] MEDS ORDERED: Lidocaine -MPF 4% 5 ML AMPUL ONE (13:10)
[2018-02-17] MEDS ORDERED: *HR* Propofol 200 MG/20 ML VIAL IVP ONE (13:10)
[2018-02-17] MEDS ORDERED: Lidocaine -MPF 2% 2 ML VIAL ONE (13:10)
[2018-02-17] MEDS: amLODIPine 5 MG TABLET PO SCH ×2 (13:15→21:56)
[2018-02-17] MEDS: Metoprolol XL (24 HR) Succ 50 MG TAB.ER.24H PO SCH (13:15)
[2018-02-17] MEDS: Fluticasone Propionate Nasal 50 MCG/SPRAY BOTTLE NS SCH ×2 (13:16→22:11)
--- NOTE | 2018-02-17 13:53 | Anesthesia Evaluation PreOp ---
Date of Encounter: 02/17/18 Time of Encounter: 14:32 - Past History Planned Operation: bronchoscopy Cardiac History: HTN, Hyperlipidemia Pulmonary History: Former smoker (quit x 40yrs), COPD, Other (recurrent mucous plugging with resp failure) YARD SPOTTER History: Denies Any Significant HX Other Medical History: Renal (ESRD on HD, had HD today) Anesthesia History: No Prior Anesthetic Complications, Past Anesthesia (AV fistula, Bronchoscopy 4-18( ETT 8.5 grade 1 view)) Alcohol Use: none Drug use: none Medications and Allergies Albuterol Sulfate [Ventolin Hfa] 2 puff IH Q4H PRN 10/12/16 [History] Allopurinol [Zyloprim] 100 mg PO DAILY 10/12/16 [History] Aspirin 81 mg PO DAILY 10/12/16 [History] Atorvastatin [Lipitor] 40 mg PO HS 10/12/16 [History] Budesonide/Formoterol 160/4.5 [Symbicort 160/4.5] 2 puff IH BIDR 10/12/16 [ History] Furosemide [Lasix] 20 mg PO QPM 10/12/16 [History] Furosemide [Lasix] 40 mg PO QAM 10/12/16 [History] Metoprolol XL (24 HR) Succ [Toprol Xl] 50 mg PO DAILY 01/14/17 [History] Loratadine [Claritin] 10 mg PO DAILY 03/11/17 [History] Sevelamer [Renvela] 4,000 mg PO TIDWM 03/11/17 [History] Losartan [Cozaar] 50 mg PO BID #60 tablet 03/14/17 [Rx] Pregabalin [Lyrica] 50 mg PO BID 11/22/17 [History] B Complex W-C No.20/Folic Acid [Virt-Caps Softgel] 1 mg PO DAILY 01/01/18 [ History] Levothyroxine [Synthroid] 37.5 mcg PO 0630 #30 tablet 01/17/18 [Rx] amLODIPine [Norvasc] 10 mg PO BID #60 tablet 01/17/18 [Rx] Ipratropium/Albuterol Neb [Duoneb] 3 ml IH Q6HR 02/15/18 [History] 3 Allergy/AdvReac Type Severity Reaction Status Date / Time codeine Allergy Rash Verified 02/15/18 15:54 gabapentin Allergy Itching Verified 02/15/18 15:54 - Meds/Allergy Pre-op Review Medications Reviewed: Yes Allergies Reviewed: Yes Beta Blockers on Current Med List: Yes If Beta Blockers taken, Date/Time (Last Dose taken): 5-10 at 1023 Anesthesia Results - Labs 02/17/18 03:37 02/17/18 03:37 - Imaging EKG: report reviewed (SINUS RHYTHM WITH FIRST DEGREE AV BLOCK LEFT ATRIAL ENLARGEMENT [-0.15mV P WAVE IN V1/V2] MARKED LEFT AXIS DEVIATION [QRS AXIS < -30 ] LEFT VENTRICULAR HYPERTROPHY AND ST-T CHANGE [VOLTAGE CRITERIA PLUS ST/T ABNORMALITY]) Additional studies: echo: Impressions: LVEF 60%. Normal LV chamber size and function. Mild concentric left ventricular hypertrophy. Anesthesia Exam Selected Entries 02/17/18 13:26 Temperature 98.0 F Pulse Rate 85 Respiratory Rate 18 Blood Pressure 169/77 O2 Sat by Pulse Oximetry 96 Oxygen Delivery Method Simple Mask Weight: 59kg NPO (# of Hours): 6 - HEENT Mallampati: II Teeth: Edentulous Oral Opening: Greater than 3 - YARD SPOTTER LOC: Oriented YARD SPOTTER Motor: Normal RUE, Normal LUE, Normal RLE, Normal LLE, Normal Face YARD SPOTTER Sensory: Normal: RUE, LUE, RLE, LLE, Face - Cardiac Rhythm: Regular Murmur: None - Pulmonary Breath Sounds: bilateral Rhonchi Respiratory Effort: Labored Anesthesia Assess/Plan ASA Score: 4 Modified Pablo Scale for Level of Consciousness: Cooperative, oriented, and tranquil Anesthetic Plan: General Monitoring Plan: Standard Monitors Recovery Plan: PACU (agrees to [place], aware is high risk and may have problems getting extubated)
[2018-02-17] MEDS ORDERED: *HR* Promethazine 25 MG/ML VIAL IVP PRN (15:11)
[2018-02-17] MEDS: Furosemide 20 MG TABLET PO SCH (17:37)
[2018-02-17 19:03] LABS: Volume of Body Fluid 26 mL
[2018-02-17 19:22] LABS: Volume of Body Fluid 26 mL
[2018-02-17 19:26] LABS: Appearance of Body Fluid Cloudy (Clear)
--- NOTE | 2018-02-17 19:39 | Internal Med Progress Note ---
Date of Encounter: 02/17/18 Time of Encounter: 15:00 - Assessment and plan (1) Acute on chronic respiratory failure with hypoxia Current Visit: Yes Status: Acute Assessment and plan: Continue supplemental O2 with oxymask, wean as tolerated to home 3L by NC. Continue nebs. Continue guaifenesin, nasal steroid, mucomyst inhaled, chest PT , deep breathing, and incentive spirometer. CT chest showed extensive bilateral mucus plugging and atelectasis. Pulmonology consulted; appreciate input. Plan for bronchoscopy today. Treat underlying causes as per below. (2) HCAP (healthcare-associated pneumonia) Current Visit: Yes Status: Suspected Assessment and plan: Continue renally dosed IV levaquin per pharmacist. (3) Pulmonary edema Current Visit: Yes Status: Acute Assessment and plan: Some improvement s/p hemodialysis, but decompensates with simple exertion like eating. Nephrology consulted; appreciate input. HD again today. Pulmonology consulted; appreciate input. CT chest results as above. Patient has poor urine output at baseline. She does not want to take IV lasix, so will continue home PO lasix regimen. Qualifiers: Chronicity: acute Qualified Code(s): J81.0 - Acute pulmonary edema (4) Elevated brain natriuretic peptide (BNP) level Current Visit: Yes Status: Acute Assessment and plan: Patient does not want to take IV lasix, so will continue home PO lasix. Monitor strict I&Os and daily weights. Continue home medications. (5) ESRD on dialysis Current Visit: Yes Status: Chronic Assessment and plan: Nephrology consulted; appreciate input. Continue hemodialysis as scheduled. (6) HTN (hypertension) Current Visit: Yes Status: Chronic Assessment and plan: Continue home medications. Qualifiers: Hypertension type: essential hypertension Qualified Code(s): I10 - Essential (primary) hypertension (7) DVT prophylaxis Current Visit: No Status: Acute Assessment and plan: Continue SQ heparin. - Time Spent With Patient Total time spent is greater than 50% in coordination of care (as documented) at patient's floor/unit and/or counseling patient: less than 15 minutes - Subjective Interval history: Patient had no acute events overnight. She is feeling better but still with SOB. Nurse states that cannot wean off mask at 10L. She decompensates when eating or exerting. She states that HD went well today. Pulmonology is consulted and she was told that she will go for bronchoscopy later today. She denies chest pain, fever, chills, nausea, or vomiting. She has no other complaints at this time. - Constitutional Vitals: Temp Pulse Resp BP Pulse Ox 98.5 F 86 20 151/63 94 02/17/18 17:00 02/17/18 17:53 02/17/18 17:00 02/17/18 17:53 02/17/18 17:53 General appearance: Present: cooperative, A&O X 3, pleasant, no acute distress, answers questions appropriately - Respiratory Respiratory exam: Absent: accessory muscle use, rales, rhonchi, wheezes Additional comments: Decreased breath sounds bilaterally, especially at bases, moderately labored WOB - Cardiovascular Cardiovascular exam: Present: RRR, +S1, +S2. Absent: diastolic murmur, gallop, rubs, systolic murmur Additional comments: No BLE edema - GI/Abdominal GI/Abdominal exam: Present: normal bowel sounds, soft. Absent: distended, hepatomegaly, mass, splenomegaly, tenderness - Psychiatric Psychiatric exam: Present: normal affect, normal mood. Absent: agitated, anxious, depressed - Skin Skin exam: Present: dry, intact, warm. Absent: cyanosis, rash Internal Medicine: Result - Labs CBC & Chem 7: 02/17/18 03:37 02/17/18 03:37 Labs: Short CBC 02/17/18 Range/Units 03:37 WBC 8.0 D (4.3-11.1) K/mcL Hgb 9.7 L (11.5-15.4) g/dL Hct 28.7 L (35.3-44.9) % Plt Count 173 (140-400) K/mcL Neutrophils # 6.3 (1.6-8.9) K/mcL BMP 02/17/18 03:37 Sodium 133 L Potassium 5.8 H Chloride 96 L Carbon Dioxide 26 BUN 53 H Creatinine 5.52 H Glucose 93 Calcium 9.5 - ABG Interpretation ABG results: PT/INR, D-dimer PT 11.5 Seconds (9.4-12.1) 02/16/18 00:59 - Impressions Impressions Chest CT 02/16/18 17:09 IMPRESSION: Extensive mucous plugging, especially within the lower lobes bilaterally. There is essentially complete collapse the lower lobes bilaterally. To a lesser extent, there is also mucous plugging seen within the right middle lobe, with partial collapse. Small bilateral pleural effusions. Extensive atherosclerotic disease, especially involving the great vessels, with extremely dense calcification noted in the left subclavian artery. Correlate with any clinical evidence of subclavian steal syndrome. Mild dilation of the ascending thoracic aorta measuring 4.1 cm. Continued surveillance of that is recommended. D/ / Lyle West MD / Lyle West MD Interpreting Provider: Lyle West MD Consult Discharge Plan - Plan Referrals: Vladimir Chaidez MD [Primary Care Provider] - 02/24/18 2:00 pm (please follow up as schedule...)
[2018-02-18] MEDS: *HR* Heparin 5,000 UNIT/ML VIAL SQ SCH ×4 (00:57→23:57)
[2018-02-18] MEDS: Acetylcysteine 10% 2 ML INHSOL IH SCH ×4 (03:34→21:45)
[2018-02-18] MEDS: Levalbuterol Neb 1.25 MG/3 ML IH SCH ×4 (03:34→21:45)
[2018-02-18 04:37] LABS: Basophils % 0.2 %; Hematocrit 27.9 % (35.3-44.9); Hemoglobin 8.9 g/dL (11.5-15.4); Immature Granulocytes % 0.3 % (0-4); Lymphocytes # 0.6 K/mcL (0.6-4.6); Lymphocytes % 9.2 %; Mean Corpuscular HGB Conc 31.9 g/dL (31.6-35.5); Mean Corpuscular Hemoglobin 33.3 pg (28.0-33.3); Mean Corpuscular Volume 104.5 fL (83.0-100.0); Monocytes # 0.5 K/mcL (0.0-1.3); Neutrophils # 5.4 K/mcL (1.6-8.9); Platelet Count 159 K/mcL (140-400); Red Blood Count 2.67 M/mcL (3.82-4.97); Red Cell Distribution Width 13.8 % (11.5-14.5); Segmented Neutrophils % 83.3 %
[2018-02-18 04:58] LABS: Calcium 9.2 mg/dL (8.6-10.3); Potassium 5.3 mEq/L (3.5-5.1)
--- NOTE | 2018-02-18 08:25 | Nephrology Progress Note ---
Date of Encounter: 02/18/18 Time of Encounter: 07:55 - Assessment and Plan (1) ESRD on dialysis Current Visit: Yes Status: Chronic S/P bronch. No HD today, keeping MWF schedule. Subjective Interval history: Sitting up in bed, eating breakfast. S/P bronch yesterday for mucus plugging. States breathing easier today. Objective - Vital Signs Vital signs: Vital Signs Temp Pulse Resp BP Pulse Ox 02/18/18 07:33 98.1 F 76 20 135/73 92 02/18/18 05:26 98.7 F 76 18 138/65 97 02/18/18 03:36 16 95 02/18/18 01:45 99.3 F 88 18 136/72 93 02/17/18 22:33 16 99 02/17/18 21:01 99.5 F 82 18 140/67 94 02/17/18 17:53 86 151/63 94 02/17/18 17:00 98.5 F 80 20 164/65 96 02/17/18 16:55 20 95 02/17/18 16:45 98.5 F 74 162/62 95 02/17/18 16:30 98.2 F 73 20 160/79 96 02/17/18 16:20 72 20 154/77 96 02/17/18 16:10 73 20 158/80 94 02/17/18 16:00 98.9 F 79 18 146/62 94 02/17/18 14:25 86 20 184/83 95 02/17/18 13:26 98.0 F 85 18 169/77 96 02/17/18 13:23 98.6 F 18 142/72 02/17/18 12:35 131/70 02/17/18 12:20 112/62 02/17/18 12:05 142/69 02/17/18 11:50 126/31 02/17/18 11:35 136/75 02/17/18 11:20 117/66 02/17/18 11:05 120/61 02/17/18 10:50 137/70 02/17/18 10:35 130/65 02/17/18 10:20 108/50 02/17/18 10:05 129/63 02/17/18 09:50 133/64 02/17/18 09:35 97.2 F L 18 139/74 Intake and Output 02/17/18 02/18/18 02/18/18 23:59 07:59 15:59 Other: # Voids 0 0 Weight 68.946 kg Patient Weight 02/18/18 23:59 Weight 68.946 kg - General Appearance General appearance: Present: well-developed, well-nourished, appears started age EENT: Present: mucous membranes moist Neck: Present: no JVD Respiratory: Present: clear Cardiology: Present: edema, regular rate, regular rhythm Additional Comments: Mild LE edema, shriveled skin Dialysis Vascular Access: Arteriovenous Fistula Gastrointestinal: Present: normoactive bowel sounds, no tenderness Integumentary: Present: warm and dry Neurologic: Present: alert and oriented x3 - Lab 02/18/18 04:21 02/18/18 04:21 Most recent lab results Calcium 9.2 mg/dL (8.6-10.3) 02/18/18 04:21 Phosphorus 2.9 mg/dL (2.7-4.5) 02/16/18 00:59 Magnesium 2.1 mg/dL (1.6-2.6) 02/16/18 00:59 Consult Discharge Plan - Plan Referrals: Vladimir Chaidez MD [Primary Care Provider] - 02/24/18 2:00 pm (please follow up as schedule...)
[2018-02-18] MEDS: Aspirin 81 MG TAB.CHEW PO SCH (09:29)
--- NOTE | 2018-02-18 09:29 | Discharge Summary ---
- NOTES TO OUTPATIENT PROVIDER Notes to Outpatient Provider: Follow up with PCP in 2-3 days after discharge. Recheck BMP (CKD) at that time. Follow up with nephrology and keep M-W-F dialysis schedule as directed. Follow up with pulmonology as scheduled. Orders not resulted at time of discharge: Pending orders 02/17/18 15:47 Culture,Respiratory [RM] Routine Culture,Respiratory [RM] Routine Gram Stain [RM] Routine 02/19/18 04:00 Basic Metabolic Panel AM 0400 CBC [Complete Blood Count] [HEME] AM 0400 Date of Encounter: 02/18/18 Time of Encounter: 09:26 - Discharge Diagnosis (1) Acute on chronic respiratory failure with hypoxia Priority: Primary Status: Resolved (2) HCAP (healthcare-associated pneumonia) Priority: Secondary Status: Suspected (3) Pulmonary edema Priority: Secondary Status: Acute Qualifiers: Chronicity: acute Qualified Code(s): J81.0 - Acute pulmonary edema (4) Elevated brain natriuretic peptide (BNP) level Priority: Secondary Status: Acute (5) ESRD on dialysis Priority: Secondary Status: Chronic (6) HTN (hypertension) Priority: Secondary Status: Chronic Qualifiers: Hypertension type: essential hypertension Qualified Code(s): I10 - Essential (primary) hypertension (7) DVT prophylaxis Priority: Secondary Status: Acute Hospital course: Ms. Carmona is a 77 year old female admitted for acute on chronic respiratory failure, likely secondary to a combination of COPD, pulmonary edema/CHF, and HCAP. She was admitted to general medical floor with telemetry. She was started on IV levaquin. She refused IV lasix, so home PO lasix was continued. She was started on nebulizer treatments and supplemental O2 by oxymask. Nephrology was consulted and dialysis scheduled. She only minimally improved after dialysis, so CT chest was ordered given complicated past history of mucus plugging. CT chest showed significant bilateral mucus plugging and atelectasis. Incenteive spirometer and chest PT was ordered. Pulmonology was consulted and she received therapeutic bronchoscopy. Respiratory status greatly improved s/p bronchoscopy. She is now back down to her home 3L by [place]. She will complete 7 total days of renally-dosed levaquin 500 mg PO Q48H. She will follow up with PCP in 2-3 days after discharged. She will follow up with nephrology and keep M-W-F dialysis schedule as directed. She will follow up with pulmonology as scheduled. Patient has met maximum benefit of this hospitalization and will be discharged home in stable condition. Discharge discussed with: patient, nurse - Time Spent with Patient Total time spent providing and/or coordinating discharge services: Greater than 30 minutes - Discharge Medications Prescriptions: Levofloxacin [Levaquin] 500 mg PO Q48H #3 tablet Home Medications: Albuterol Sulfate [Ventolin Hfa] 2 puff IH Q4H PRN 10/12/16 [History] Allopurinol [Zyloprim] 100 mg PO DAILY 10/12/16 [History] Aspirin 81 mg PO DAILY 10/12/16 [History] Atorvastatin [Lipitor] 40 mg PO HS 10/12/16 [History] Budesonide/Formoterol 160/4.5 [Symbicort 160/4.5] 2 puff IH BIDR 10/12/16 [ History] Furosemide [Lasix] 20 mg PO QPM 10/12/16 [History] Furosemide [Lasix] 40 mg PO QAM 10/12/16 [History] Metoprolol XL (24 HR) Succ [Toprol Xl] 50 mg PO DAILY 01/14/17 [History] Loratadine [Claritin] 10 mg PO DAILY 03/11/17 [History] Sevelamer [Renvela] 4,000 mg PO TIDWM 03/11/17 [History] Losartan [Cozaar] 50 mg PO BID #60 tablet 03/14/17 [Rx] Pregabalin [Lyrica] 50 mg PO BID 11/22/17 [History] B Complex W-C No.20/Folic Acid [Virt-Caps Softgel] 1 mg PO DAILY 01/01/18 [ History] Levothyroxine [Synthroid] 37.5 mcg PO 0630 #30 tablet 01/17/18 [Rx] amLODIPine [Norvasc] 10 mg PO BID #60 tablet 01/17/18 [Rx] Ipratropium/Albuterol Neb [Duoneb] 3 ml IH Q6HR 02/15/18 [History] Levofloxacin [Levaquin] 500 mg PO Q48H #3 tablet 02/18/18 [Rx] Allergies/Adverse Reactions: 3 Allergy/AdvReac Type Severity Reaction Status Date / Time codeine Allergy Rash Verified 02/15/18 15:54 gabapentin Allergy Itching Verified 02/15/18 15:54 Date of admission: 02/15/18 20:12 Primary care physician: Vladimir Chaidez MD Consults: 02/16/18 09:15 Consult to Dialysis [CONS] ONCE 02/17/18 08:54 Consult to Pulmonology [CONS] Routine Consulting Provider: [facility] [place] Reason for Consult: Acute on Chronic Respiratory Failure, Mucous Plugging, Consider Bronchoscopy Call Completed: Yes Consult to Pulmonology [CONS] Routine Consulting Provider: [facility] [place] Reason for Consult: CT chest-mucus plugging bilat bases Time Notified: 08:55 Call Completed: Yes 02/17/18 09:00 Consult to Dialysis [CONS] ONCE Nephrology Discharging clinician: Navin Sullivan Anticipated date of discharge: 02/18/18 - Constitutional Vitals: Temp Pulse Resp BP Pulse Ox 98.1 F 76 20 135/73 92 02/18/18 07:33 02/18/18 07:33 02/18/18 07:33 02/18/18 07:33 02/18/18 07:33 General appearance: Present: cooperative, A&O X 3, pleasant, no acute distress, answers questions appropriately - Respiratory Respiratory exam: Present: CTAB. Absent: accessory muscle use, rales, rhonchi, wheezes Additional comments: Normal WOB - Cardiovascular Cardiovascular exam: Present: RRR, +S1, +S2. Absent: diastolic murmur, gallop, rubs, systolic murmur Additional comments: No BLE edema - GI/Abdominal GI/Abdominal exam: Present: normal bowel sounds, soft. Absent: distended, hepatomegaly, mass, splenomegaly, tenderness - Psychiatric Psychiatric exam: Present: normal affect, normal mood. Absent: agitated, anxious, depressed - Skin Skin exam: Present: dry, intact, warm. Absent: cyanosis, rash - Patient Status Disposition: Home, Self-Care Condition: Good Overall status at discharge: patient is progressing back to baseline - Discharge Instructions Follow Up With: Vladimir Chaidez MD [Primary Care Provider] - 02/24/18 2:00 pm (please follow up as schedule...) Additional Instructions: Follow up with PCP in 2-3 days after discharge. Recheck BMP (CKD) at that time. Follow up with nephrology and keep -W- dialysis schedule as directed. Follow up with pulmonology as scheduled. - Diet and Activity Activity: resume usual activities as tolerated, wear oxygen at all times Diet: low fat, low cholesterol, low salt diet, other (Cardiac Diet, Renal Diet)
[2018-02-18] MEDS: amLODIPine 5 MG TABLET PO SCH ×2 (09:30→20:42)
[2018-02-18] MEDS: Renal Vitamin 1 MG CAPSULE PO SCH (09:30)
[2018-02-18] MEDS: Pregabalin 50 MG CAPSULE PO SCH ×2 (09:30→20:41)
[2018-02-18] MEDS: Loratadine 10 MG TABLET PO SCH (09:30)
[2018-02-18] MEDS: Metoprolol XL (24 HR) Succ 50 MG TAB.ER.24H PO SCH (09:30)
[2018-02-18] MEDS: Furosemide 40 MG TABLET PO SCH (09:30)
[2018-02-18] MEDS: Fluticasone Propionate Nasal 50 MCG/SPRAY BOTTLE NS SCH (09:33)
[2018-02-18] MEDS: Budesonide/Formoterol 160/4.5 MDI IH SCH ×2 (09:38→21:45)
--- NOTE | 2018-02-18 11:22 | Pulmonology Progress Note ---
Date of Encounter: 02/18/18 Time of Encounter: 11:00 Assessment and Plan (1) Mucus plugging of bronchi Current Visit: No Status: Resolved Status post bronchoscopy and patient clinically is feeling much better. I have advised her to keep her appointment in the office and perhaps in the future may need bronchoscopy for therapeutic reasons before her condition deteriorate. Continue bronchodilators and patient was told about pulmonary hygiene and using device such as flutter valve percussion device that was explained to her as outpatient. Advised patient to keep her SPO2 around 90%. (2) Atelectasis Current Visit: No Status: Chronic (3) ESRD on dialysis Current Visit: Yes Status: Chronic Subjective Principal diagnosis: Mucous plug Interval history: Patient is feeling much better after bronchoscopy Objective PUL Vital signs: Last Vital Signs Temp 98.1 F 02/18/18 07:33 Pulse 76 02/18/18 07:33 Resp 16 02/18/18 09:38 BP 135/73 02/18/18 07:33 Pulse Ox 93 02/18/18 09:38 General appearance: no acute distress ENT: oropharynx moist Neck: supple Effort: normal Auscultation: bilateral: rhonchi Percussion: bilateral: not dull Cardiovascular: regular rate and rhythm, murmur noted Gastrointestinal: normoactive bowel sounds, non-distended Extremities: no cyanosis normal mental status, non-focal exam mood appropriate Results - Laboratory Findings CBC and BMP: 02/18/18 04:21 02/18/18 04:21 PT/INR, D-dimer PT 11.5 Seconds (9.4-12.1) 02/16/18 00:59 Abnormal lab findings: Abnormal lab results RBC 2.67 M/mcL (3.82-4.97) L 02/18/18 04:21 Hgb 8.9 g/dL (11.5-15.4) L 02/18/18 04:21 Hct 27.9 % (35.3-44.9) L 02/18/18 04:21 MCV 104.5 fL (83.0-100.0) H 02/18/18 04:21 Potassium 5.3 mEq/L (3.5-5.1) H 02/18/18 04:21 BUN 28 mg/dL (8-23) H 02/18/18 04:21 Creatinine 3.75 mg/dL (0.60-1.20) H 02/18/18 04:21 Est GFR ( Amer) 14 (> 60) L 02/18/18 04:21 Est GFR (Non-Af Amer) 12 (> 60) L 02/18/18 04:21 Glucose 123 mg/dL (70-105) H 02/18/18 04:21 Alkaline Phosphatase 129 Units/L (34-104) H 02/16/18 00:59 B-Natriuretic Peptide 4035 pg/mL (Less than 100) H 02/16/18 00:59 Serum Total Protein 6.2 g/dL (6.4-8.9) L 02/16/18 00:59 Globulin 2.2 g/dL (2.4-3.5) L 02/16/18 00:59 HDL Cholesterol 60 mg/dL (40-59) H 02/16/18 00:59 Fluid Appearance Cloudy (Clear) A 02/17/18 15:47 - Microbiology Findings Microbiology Findings: Microbiology, Last 48 Hours 02/17/18 15:47 Gram Stain - Final Right Lower Lobe Lung 02/17/18 15:47 Gram Stain - Final Left Lower Lobe Lung - Clinical Findings Intake & Output: Intake & Output 02/17/18 02/18/18 02/18/18 23:59 07:59 15:59 Intake Total 360 / 360 Balance 360 / 360 Weight 68.946 kg Consult Discharge Plan - Plan Additional Instructions: Follow up with PCP in 2-3 days after discharge. Recheck BMP (CKD) at that time. Follow up with nephrology and keep M-W- dialysis schedule as directed. Follow up with pulmonology as scheduled. Referrals: Vladimir Chaidez MD [Primary Care Provider] - 02/24/18 2:00 pm (please follow up as schedule...) Prescriptions: Levofloxacin [Levaquin] 500 mg PO Q48H #3 tablet
[2018-02-18] MEDS ORDERED: Vancomycin 1 EACH in 0.9 % Sodium Chloride 250 ML IVPB SCH (15:00)
[2018-02-18] MEDS: Furosemide 20 MG TABLET PO SCH (16:47)
--- NOTE | 2018-02-18 19:29 | Event Note ---
Date of Encounter: 02/18/18 Time of Encounter: 19:27 Nursing staff notified me that bronchoscopy cultures came back positive for MRSA. I have started IV vancomycin dosed by pharmacy. I will keep her here overnight and let pulmonology know about these results tomorrow morning. Her respiratory status seems good at rest. Will monitor closely overnight. She may need to be discharged on course of IV vancomycin at home.
[2018-02-19] MEDS: Levalbuterol Neb 1.25 MG/3 ML IH SCH ×4 (03:21→22:44)
[2018-02-19] MEDS: Acetylcysteine 10% 2 ML INHSOL IH SCH ×4 (03:21→22:44)
[2018-02-19 04:30] LABS: Basophils % 0.3 %; Eosinophils # 0.1 K/mcL (0.0-0.6); Eosinophils % 1.4 %; Hematocrit 28.1 % (35.3-44.9); Hemoglobin 9.2 g/dL (11.5-15.4); Immature Granulocytes % 0.5 % (0-4); Lymphocytes % 17.5 %; Mean Corpuscular HGB Conc 32.7 g/dL (31.6-35.5); Mean Corpuscular Hemoglobin 34.3 pg (28.0-33.3); Mean Corpuscular Volume 104.9 fL (83.0-100.0); Mean Platelet Volume 10.2 fL (9.4-12.4); Monocytes # 0.5 K/mcL (0.0-1.3); Neutrophils # 4.1 K/mcL (1.6-8.9); Platelet Count 160 K/mcL (140-400); Red Blood Count 2.68 M/mcL (3.82-4.97); Red Cell Distribution Width 13.6 % (11.5-14.5); Segmented Neutrophils % 71.3 %
[2018-02-19 05:07] LABS: Calcium 9.5 mg/dL (8.6-10.3)
[2018-02-19] MEDS: Renal Vitamin 1 MG CAPSULE PO SCH (07:45)
[2018-02-19] MEDS: Loratadine 10 MG TABLET PO SCH (07:45)
[2018-02-19] MEDS: Metoprolol XL (24 HR) Succ 50 MG TAB.ER.24H PO SCH (07:45)
[2018-02-19] MEDS: Aspirin 81 MG TAB.CHEW PO SCH (07:45)
[2018-02-19] MEDS: Furosemide 40 MG TABLET PO SCH (07:45)
[2018-02-19] MEDS: amLODIPine 5 MG TABLET PO SCH ×2 (07:46→20:23)
[2018-02-19] MEDS: Pregabalin 50 MG CAPSULE PO SCH ×2 (07:46→20:22)
[2018-02-19] MEDS: *HR* Heparin 5,000 UNIT/ML VIAL SQ SCH ×3 (07:47→23:35)
[2018-02-19] MEDS: Fluticasone Propionate Nasal 50 MCG/SPRAY BOTTLE NS SCH (07:51)
--- NOTE | 2018-02-19 08:19 | Nephrology Progress Note ---
Date of Encounter: 02/19/18 Time of Encounter: 08:05 - Assessment and Plan (1) ESRD on dialysis Current Visit: Yes Status: Chronic S/P bronch. Noted Bronch culture MRSA and started on Vancomycin. No HD today, keeping MWF schedule. Subjective Principal diagnosis: Mucous plug Interval history: Sitting up in chair, eating breakfast. States breathing easier today. Objective - Vital Signs Vital signs: Vital Signs Temp Pulse Resp BP Pulse Ox 02/19/18 07:57 89 02/19/18 07:26 97.8 F 65 17 151/69 93 02/19/18 03:22 18 94 02/19/18 03:16 98.1 F 67 17 136/61 93 02/18/18 23:43 97.5 F L 78 18 166/73 90 02/18/18 21:45 18 93 02/18/18 19:45 97.4 F L 71 17 164/75 90 02/18/18 16:41 97.4 F L 72 16 145/61 94 02/18/18 15:25 16 99 02/18/18 09:38 16 93 Intake and Output 02/18/18 02/19/18 02/19/18 23:59 07:59 15:59 Intake Total 240 / 240 0 / 0 Output Total 0 / 0 Balance 240 / 240 0 / 0 Intake: Oral 240 / 240 0 / 0 Output: Urine 0 / 0 Other: Meal Dinner Percent of Meal Consumed 10% - General Appearance General appearance: Present: well-developed, well-nourished, appears started age EENT: Present: mucous membranes moist Neck: Present: no JVD Respiratory: Present: clear Cardiology: Present: edema, regular rate, regular rhythm Additional Comments: mild Dialysis Vascular Access: Arteriovenous Fistula Gastrointestinal: Present: normoactive bowel sounds, no tenderness Integumentary: Present: warm and dry Neurologic: Present: alert and oriented x3 - Lab 02/19/18 04:00 02/19/18 04:00 Most recent lab results Calcium 9.5 mg/dL (8.6-10.3) 02/19/18 04:00 Phosphorus 2.9 mg/dL (2.7-4.5) 02/16/18 00:59 Magnesium 2.1 mg/dL (1.6-2.6) 02/16/18 00:59 Consult Discharge Plan - Plan Instructions: Chronic Hypertension (DC), Community-acquired Pneumonia (DC), End -Stage Kidney Disease (DC) Additional Instructions: Follow up with PCP in 2-3 days after discharge. Recheck BMP (CKD) at that time. Follow up with nephrology and keep M-W- dialysis schedule as directed. Follow up with pulmonology as scheduled. Referrals: Vladimir Chaidez MD [Primary Care Provider] - 02/24/18 2:00 pm (please follow up as schedule...) Prescriptions: Levofloxacin [Levaquin] 500 mg PO Q48H #3 tablet
[2018-02-19] MEDS ORDERED: Levofloxacin 500 MG/100 ML 500 MG/100 ML BAG IVPB SCH (10:00)
[2018-02-19] MEDS: Budesonide/Formoterol 160/4.5 MDI IH SCH ×2 (12:50→22:45)
[2018-02-19] MEDS: Furosemide 20 MG TABLET PO SCH (16:36)
--- NOTE | 2018-02-19 19:01 | Internal Med Progress Note ---
Date of Encounter: 02/19/18 Time of Encounter: 13:57 - Assessment and plan (1) Acute on chronic respiratory failure with hypoxia Current Visit: Yes Status: Resolved Assessment and plan: Resolved. Now on home 3L by [place]. Continue nebs. Continue guaifenesin, nasal steroid, mucomyst inhaled, chest PT, deep breathing, and incentive spirometer. CT chest showed extensive bilateral mucus plugging and atelectasis. Pulmonology consulted; appreciate input. S/P bronchoscopy. Treat underlying causes as per below. Bronch washing cultures came back positive for MRSA. Continue IV vancomycin. SW consulted to get up IV antibiotics with home health on Tuesday. (2) HCAP (healthcare-associated pneumonia) Current Visit: Yes Status: Suspected Assessment and plan: Bronchial washings positive for MRSA. Continue renally dosed IV vancomycin per pharmacist. Discontinue IV levaquin. (3) Pulmonary edema Current Visit: Yes Status: Acute Assessment and plan: Some improvement s/p hemodialysis, but decompensates with simple exertion like eating. Nephrology consulted; appreciate input. Follow HD schedule. Pulmonology consulted; appreciate input. CT chest results as above. Patient has poor urine output at baseline. She does not want to take IV lasix, so will continue home PO lasix regimen. Qualifiers: Chronicity: acute Qualified Code(s): J81.0 - Acute pulmonary edema (4) Elevated brain natriuretic peptide (BNP) level Current Visit: Yes Status: Acute Assessment and plan: Patient does not want to take IV lasix, so will continue home PO lasix. Monitor strict I&Os and daily weights. Continue home medications. (5) ESRD on dialysis Current Visit: Yes Status: Chronic Assessment and plan: Nephrology consulted; appreciate input. Continue hemodialysis as scheduled. (6) HTN (hypertension) Current Visit: Yes Status: Chronic Assessment and plan: Continue home medications. Qualifiers: Hypertension type: essential hypertension Qualified Code(s): I10 - Essential (primary) hypertension (7) DVT prophylaxis Current Visit: No Status: Acute Assessment and plan: Continue SQ heparin. - Time Spent With Patient Total time spent is greater than 50% in coordination of care (as documented) at patient's floor/unit and/or counseling patient: less than 15 minutes - Subjective Interval history: Patient had no acute events overnight. She is feeling better but still with SOB when getting up and walking. She is now back down to her home 2-3 L supplemental O2 by [place]. She still decompensates when eating or exerting. Pulmonology is consulted but they did not see patient today. She will have to stay overnight because we cannot get IV antibiotics set up with home health until Tuesday. She denies chest pain, fever, chills, nausea, or vomiting. She has no other complaints at this time. - Constitutional Vitals: Temp Pulse Resp BP Pulse Ox 97.9 F 87 16 147/62 92 02/19/18 17:01 02/19/18 17:01 02/19/18 17:01 02/19/18 17:01 02/19/18 17:01 General appearance: Present: cooperative, A&O X 3, pleasant, no acute distress, answers questions appropriately - Respiratory Respiratory exam: Present: decreased breath sounds. Absent: accessory muscle use, rales, rhonchi, wheezes Additional comments: Normal WOB at rest, moderately labored WOB with exertion - Cardiovascular Cardiovascular exam: Present: RRR, +S1, +S2. Absent: diastolic murmur, gallop, rubs, systolic murmur Additional comments: No BLE edema - GI/Abdominal GI/Abdominal exam: Present: normal bowel sounds, soft. Absent: distended, hepatomegaly, mass, splenomegaly, tenderness - Psychiatric Psychiatric exam: Present: normal affect, normal mood. Absent: agitated, anxious, depressed - Skin Skin exam: Present: dry, intact, warm. Absent: cyanosis, rash Internal Medicine: Result - Labs CBC & Chem 7: 02/19/18 04:00 02/19/18 04:00 Labs: Short CBC 02/19/18 Range/Units 04:00 WBC 5.8 (4.3-11.1) K/mcL Hgb 9.2 L (11.5-15.4) g/dL Hct 28.1 L (35.3-44.9) % Plt Count 160 (140-400) K/mcL Neutrophils # 4.1 (1.6-8.9) K/mcL BMP 02/19/18 04:00 Sodium 137 Potassium 5.0 Chloride 101 Carbon Dioxide 24 BUN 42 H Creatinine 5.27 H Glucose 124 H Calcium 9.5 - ABG Interpretation ABG results: PT/INR, D-dimer PT 11.5 Seconds (9.4-12.1) 02/16/18 00:59 Consult Discharge Plan - Plan Instructions: Chronic Hypertension (DC), Community-acquired Pneumonia (DC), End -Stage Kidney Disease (DC) Additional Instructions: Follow up with PCP in 2-3 days after discharge. Recheck BMP (CKD) at that time. Follow up with nephrology and keep M-W- dialysis schedule as directed. Follow up with pulmonology as scheduled. Referrals: Vladimir Chaidez MD [Primary Care Provider] - 02/24/18 2:00 pm (please follow up as schedule...) Prescriptions: Levofloxacin [Levaquin] 500 mg PO Q48H #3 tablet
[2018-02-20] MEDS: Levalbuterol Neb 1.25 MG/3 ML IH SCH ×3 (04:22→15:42)
[2018-02-20] MEDS: Acetylcysteine 10% 2 ML INHSOL IH SCH ×3 (04:22→15:42)
[2018-02-20 04:37] LABS: Basophils % 0.3 %; Eosinophils # 0.1 K/mcL (0.0-0.6); Eosinophils % 1.2 %; Hematocrit 28.1 % (35.3-44.9); Hemoglobin 9.6 g/dL (11.5-15.4); Immature Granulocytes % 0.6 % (0-4); Lymphocytes % 14.5 %; Mean Corpuscular HGB Conc 34.2 g/dL (31.6-35.5); Mean Corpuscular Hemoglobin 34.8 pg (28.0-33.3); Mean Corpuscular Volume 101.8 fL (83.0-100.0); Mean Platelet Volume 10.2 fL (9.4-12.4); Monocytes # 0.5 K/mcL (0.0-1.3); Monocytes % 7.9 %; Neutrophils # 5.2 K/mcL (1.6-8.9); Platelet Count 170 K/mcL (140-400); Red Blood Count 2.76 M/mcL (3.82-4.97); Red Cell Distribution Width 13.8 % (11.5-14.5); Segmented Neutrophils % 75.5 %
[2018-02-20 05:03] LABS: Calcium 9.5 mg/dL (8.6-10.3); Potassium 6.3 mEq/L (3.5-5.1)
[2018-02-20] MEDS ORDERED: 0.9 % Sodium Chloride 2,000 ML ONE (07:19)
[2018-02-20] MEDS: Pregabalin 50 MG CAPSULE PO SCH (07:59)
[2018-02-20] MEDS: *HR* Heparin 5,000 UNIT/ML VIAL SQ SCH (07:59)
[2018-02-20] MEDS: Renal Vitamin 1 MG CAPSULE PO SCH (07:59)
[2018-02-20] MEDS: Aspirin 81 MG TAB.CHEW PO SCH (07:59)
[2018-02-20] MEDS: amLODIPine 5 MG TABLET PO SCH (07:59)
[2018-02-20] MEDS: Metoprolol XL (24 HR) Succ 50 MG TAB.ER.24H PO SCH (07:59)
[2018-02-20] MEDS: Loratadine 10 MG TABLET PO SCH (07:59)
[2018-02-20] MEDS: Furosemide 40 MG TABLET PO SCH (07:59)
[2018-02-20] MEDS: Fluticasone Propionate Nasal 50 MCG/SPRAY BOTTLE NS SCH (08:00)
[2018-02-20] MEDS ORDERED: 0.9 % Sodium Chloride 250 ML IVC PRN (08:05)
--- NOTE | 2018-02-20 08:05 | Nephrology Progress Note ---
Date of Encounter: 02/20/18 Time of Encounter: 08:03 - Assessment and Plan (1) ESRD on dialysis Current Visit: Yes Status: Chronic Patient will undergo dialysis today on a 2K bath. She has been started on vancomycin for MRSA in the sputum. (2) COPD (chronic obstructive pulmonary disease) Current Visit: No Status: Chronic Qualifiers: COPD type: unspecified COPD Qualified Code(s): J44.9 - Chronic obstructive pulmonary disease, unspecified (3) Benign hypertension with ESRD (end-stage renal disease) Current Visit: No Status: Acute (4) Anemia in chronic kidney disease (CKD) Current Visit: No Status: Chronic Qualifiers: Chronic kidney disease stage: on chronic dialysis Qualified Code(s): N18.6 - End stage renal disease; D63.1 - Anemia in chronic kidney disease; D63.1 - Anemia in chronic kidney disease; Z99.2 - Dependence on renal dialysis; Z99.2 - Dependence on renal dialysis; Z99.2 - Dependence on renal dialysis; Z99.2 - Dependence on renal dialysis (5) Mucus plugging of bronchi Current Visit: No Status: Resolved Subjective Principal diagnosis: Mucous plug Interval history: Patient reports overall she is feeling some better. She does continue to have coughing sometimes productive. Specimens from the bronchoscopy are growing MRSA. Patient has been started on vancomycin. She is scheduled for her usual dialysis today. Objective - Vital Signs Vital signs: Vital Signs Temp Pulse Resp BP Pulse Ox 02/20/18 07:09 98.4 F 75 18 156/64 90 02/20/18 04:25 18 93 02/20/18 03:52 98.2 F 74 18 152/65 93 02/19/18 22:52 18 95 02/19/18 21:21 97.3 F L 71 18 164/66 96 02/19/18 17:01 97.9 F 87 16 147/62 92 02/19/18 15:21 16 89 02/19/18 12:00 98.4 F 72 16 147/77 93 Intake and Output 02/19/18 02/20/18 02/20/18 23:59 07:59 15:59 Intake Total 960 / 960 Output Total 0 / 0 Balance 960 / 960 Intake: Oral 960 / 960 Output: Urine 0 / 0 Other: Meal Dinner Percent of Meal Consumed 25% # Bowel Movements 0 Weight 69.428 kg Patient Weight 02/20/18 23:59 Weight 69.428 kg - General Appearance Exam: Patient is alert and oriented. She is in no acute distress. Lungs diminished breath sounds bilaterally. Heart regular rate and rhythm with a 2/6 talk ejection murmur. Abdomen is benign. There is some mild lower extremity swelling. There is a functioning AV graft in the left upper extremity. - Lab 02/20/18 04:01 02/20/18 04:01 Most recent lab results Calcium 9.5 mg/dL (8.6-10.3) 02/20/18 04:01 Phosphorus 2.9 mg/dL (2.7-4.5) 02/16/18 00:59 Magnesium 2.1 mg/dL (1.6-2.6) 02/16/18 00:59 Consult Discharge Plan - Plan Instructions: Chronic Hypertension (DC), Community-acquired Pneumonia (DC), End -Stage Kidney Disease (DC) Additional Instructions: Follow up with PCP in 2-3 days after discharge. Recheck BMP (CKD) at that time. Follow up with nephrology and keep M-W- dialysis schedule as directed. Follow up with pulmonology as scheduled. Referrals: Vladimir Chaidez MD [Primary Care Provider] - 02/24/18 2:00 pm (please follow up as schedule...) Prescriptions: Levofloxacin [Levaquin] 500 mg PO Q48H #3 tablet
[2018-02-20] MEDS: Budesonide/Formoterol 160/4.5 MDI IH SCH (10:56)
[2018-02-20 12:47] VITALS: BP 144/68
--- NOTE | 2018-02-20 15:57 | Discharge Summary ---
- NOTES TO OUTPATIENT PROVIDER Notes to Outpatient Provider: Follow up with PCP in 2-3 days after discharge. Repeat BMP (CKD) and CBC (anemia in CKD) can be rechecked at that time. Follow up with activities aide as directed. Follow up with nephrology and keep dialysis as directed. Complete IV antibiotics at home with home health. Orders not resulted at time of discharge: Pending orders 02/21/18 04:00 Basic Metabolic Panel AM 0400 CBC [Complete Blood Count] [HEME] AM 0400 Date of Encounter: 02/20/18 Time of Encounter: 12:17 - Discharge Diagnosis (1) Acute on chronic respiratory failure with hypoxia Priority: Primary Status: Resolved (2) HCAP (healthcare-associated pneumonia) Priority: Secondary Status: Acute (3) Pulmonary edema Priority: Secondary Status: Acute Qualifiers: Chronicity: acute Qualified Code(s): J81.0 - Acute pulmonary edema (4) Elevated brain natriuretic peptide (BNP) level Priority: Secondary Status: Acute (5) ESRD on dialysis Priority: Secondary Status: Chronic (6) HTN (hypertension) Priority: Secondary Status: Chronic Qualifiers: Hypertension type: essential hypertension Qualified Code(s): I10 - Essential (primary) hypertension (7) DVT prophylaxis Priority: Secondary Status: Acute Hospital course: Ms. Carmona is a 77 year old female admitted for acute on chronic respiratory failure likely secondary to a combination of COPD, pulmonary edema/CHF, mucus plugging, and HCAP-MRSA. Please see previous discharge summary for early hospital course. Patient's discharge was held because bronchoscopy results came back positive for MRSA. She was started on IV vancomycin dosed by pharmacy and IV levaquin was discontinued. Patient's respiratory status remained stable. Pulmonology did not have anything further to add and did not see patient again. SW/CM set up home health with home health infusion. She will complete 7 days of IV vancomycin, dosed Q48H, and given after dialysis. She will follow up with PCP in 2-3 days after discharge. A repeat BMP (CKD) and CBC (anemia in CKD) can be rechecked at that time. She will follow up with activities aide as directed. She will follow up with nephrology and keep dialysis as directed. She will complete IV antibiotics at home with home health. Discharge discussed with: patient, nurse, social work, case management, other ( Pharmacist) - Time Spent with Patient Total time spent providing and/or coordinating discharge services: Greater than 30 minutes - Discharge Medications Prescriptions: RX: Vancomycin [Vancocin] 1,000 mg IV Q48H 7 Days #4 vial Home Medications: RX: Albuterol Sulfate [Ventolin Hfa] 2 puff IH Q4H PRN 10/12/16 [History] RX: Allopurinol [Zyloprim] 100 mg PO DAILY 10/12/16 [History] RX: Aspirin 81 mg PO DAILY 10/12/16 [History] RX: Atorvastatin [Lipitor] 40 mg PO HS 10/12/16 [History] RX: Budesonide/Formoterol 160/4.5 [Symbicort 160/4.5] 2 puff IH BIDR 10/12/16 [ History] RX: Furosemide [Lasix] 20 mg PO QPM 10/12/16 [History] RX: Furosemide [Lasix] 40 mg PO QAM 10/12/16 [History] RX: Metoprolol XL (24 HR) Succ [Toprol Xl] 50 mg PO DAILY 01/14/17 [History] RX: Loratadine [Claritin] 10 mg PO DAILY 03/11/17 [History] RX: Sevelamer [Renvela] 4,000 mg PO TIDWM 03/11/17 [History] RX: Losartan [Cozaar] 50 mg PO BID #60 tablet 03/14/17 [Rx] RX: Pregabalin [Lyrica] 50 mg PO BID 11/22/17 [History] RX: B Complex W-C No.20/Folic Acid [Virt-Caps Softgel] 1 mg PO DAILY 01/01/18 [ History] RX: Levothyroxine [Synthroid] 37.5 mcg PO 0630 #30 tablet 01/17/18 [Rx] RX: amLODIPine [Norvasc] 10 mg PO BID #60 tablet 01/17/18 [Rx] RX: Ipratropium/Albuterol Neb [Duoneb] 3 ml IH Q6HR 02/15/18 [History] RX: Vancomycin [Vancocin] 1,000 mg IV Q48H 7 Days #4 vial 02/20/18 [Rx] Allergies/Adverse Reactions: 3 Allergy/AdvReac Type Severity Reaction Status Date / Time codeine Allergy Rash Verified 02/15/18 15:54 gabapentin Allergy Itching Verified 02/15/18 15:54 Date of admission: 02/15/18 20:12 Primary care physician: Vladimir Chaidez MD Consults: 02/16/18 09:15 Consult to Dialysis [CONS] ONCE 02/17/18 08:54 Consult to Pulmonology [CONS] Routine Consulting Provider: [facility] [place] Reason for Consult: Acute on Chronic Respiratory Failure, Mucous Plugging, Consider Bronchoscopy Call Completed: Yes Consult to Pulmonology [CONS] Routine Consulting Provider: [facility] [place] Reason for Consult: CT chest-mucus plugging bilat bases Time Notified: 08:55 Call Completed: Yes 02/17/18 09:00 Consult to Dialysis [CONS] ONCE 02/19/18 09:41 Consult to Pulmonology [CONS] Stat Consulting Provider: [facility] [place] Reason for Consult: MRSA positive bronch culture Call Completed: No 02/20/18 08:15 Consult to Dialysis [CONS] ONCE 02/20/18 09:07 Consult to [employer] [CONS] Stat Reason for SW Consult: Patient needs a 1 week course of IV vancomycin at home. Please make sure this is set up with home health. Let me know if you need a prescription. Thanks. Discharging clinician: Navin Sullivan Anticipated date of discharge: 02/20/18 - Constitutional Vitals: Temp Pulse Resp BP Pulse Ox 97.2 F L 75 18 144/68 93 02/20/18 12:30 02/20/18 07:09 02/20/18 15:44 02/20/18 12:30 02/20/18 15:44 General appearance: Present: cooperative, A&O X 3, pleasant, no acute distress, answers questions appropriately - Patient Status Disposition: Home, Self-Care Condition: Good - Discharge Instructions Instructions: Chronic Hypertension (DC), Community-acquired Pneumonia (DC), End -Stage Kidney Disease (DC) Follow Up With: Vladimir Chaidez MD [Primary Care Provider] - 02/24/18 2:00 pm (please follow up as schedule...) Additional Instructions: Follow up with PCP in 2-3 days after discharge. Recheck BMP (CKD) at that time. Follow up with nephrology and keep M-W- dialysis schedule as directed. Follow up with pulmonology as scheduled.
[2018-02-20] MEDS ORDERED: Aminoglycoside Consult 1 EACH MC ONE (16:05)
--- NOTE | 2018-02-20 16:17 | Physician Discharge Referral ---
Home Health/Hosp Referral Info Transfer to: Home Health Provider in Charge Post Discharge: PCP - Diagnosis (1) Acute on chronic respiratory failure with hypoxia Priority: Primary Status: Resolved (2) HCAP (healthcare-associated pneumonia) Priority: Secondary Status: Acute (3) Pulmonary edema Priority: Secondary Status: Acute (4) Elevated brain natriuretic peptide (BNP) level Priority: Secondary Status: Acute (5) ESRD on dialysis Priority: Secondary Status: Chronic (6) HTN (hypertension) Priority: Secondary Status: Chronic (7) DVT prophylaxis Priority: Secondary Status: Acute - Respiratory Orders Oxygen / L per min (2-3 L NC, wean to room air as tolerated) Smoking Cessation: Smoking cessation has been advised. For more information, call the [employer] Quit Line at [phone]-NOW. - Diet/Nutrition Diet/Nutrition Orders: No Added Salt (STACY), Renal, Cardiac - Activity Activity: List: Per physical therapy - Services Needed Following services are medically necessary services: Nursing, Physical Therapy, Occupational Therapy, Home Infusion (IV Vancomycin) Other Treatments: Nebulizer treatments - Transfer Medications Prescriptions: RX: Vancomycin [Vancocin] 1,000 mg IV Q48H 7 Days #4 vial Home Medications: RX: Albuterol Sulfate [Ventolin Hfa] 2 puff IH Q4H PRN 10/12/16 [History] RX: Allopurinol [Zyloprim] 100 mg PO DAILY 10/12/16 [History] RX: Aspirin 81 mg PO DAILY 10/12/16 [History] RX: Atorvastatin [Lipitor] 40 mg PO HS 10/12/16 [History] RX: Budesonide/Formoterol 160/4.5 [Symbicort 160/4.5] 2 puff IH BIDR 10/12/16 [ History] RX: Furosemide [Lasix] 20 mg PO QPM 10/12/16 [History] RX: Furosemide [Lasix] 40 mg PO QAM 10/12/16 [History] RX: Metoprolol XL (24 HR) Succ [Toprol Xl] 50 mg PO DAILY 01/14/17 [History] RX: Loratadine [Claritin] 10 mg PO DAILY 03/11/17 [History] RX: Sevelamer [Renvela] 4,000 mg PO TIDWM 03/11/17 [History] RX: Losartan [Cozaar] 50 mg PO BID #60 tablet 03/14/17 [Rx] RX: Pregabalin [Lyrica] 50 mg PO BID 11/22/17 [History] RX: B Complex W-C No.20/Folic Acid [Virt-Caps Softgel] 1 mg PO DAILY 01/01/18 [ History] RX: Levothyroxine [Synthroid] 37.5 mcg PO 0630 #30 tablet 01/17/18 [Rx] RX: amLODIPine [Norvasc] 10 mg PO BID #60 tablet 01/17/18 [Rx] RX: Ipratropium/Albuterol Neb [Duoneb] 3 ml IH Q6HR 02/15/18 [History] RX: Vancomycin [Vancocin] 1,000 mg IV Q48H 7 Days #4 vial 02/20/18 [Rx] Allergies/Adverse Reactions: 3 Allergy/AdvReac Type Severity Reaction Status Date / Time codeine Allergy Rash Verified 02/15/18 15:54 gabapentin Allergy Itching Verified 02/15/18 15:54 Certification: Further, I certify that my clinical findings support that this patient is homebound (i.e. absences from home require considerable and taxing effort and are for medical reasons or [employer]an [employer] services or infrequently or short duration when for other reasons) because: MRSA HCAP with IV vanocmycin treament, chronic respiratory failure, and ESRD. Homebound Reason: Patient requires assistance of a person or device to safely leave home, Leaving home requires considerable and taxing effort due to condition, Severity of cardiac or pulmonary status limits activity tolerance Attestation: My signature below is to certify that this patient is under my care and that I, or nurse practitioner, or a physician's blacksmith assistant working with me, has a face-to -face encounter with this patient.
== END 2018-02-20 16:06 | disposition home or self-care (01) | DRG 166 ==
LOC: EMEROO 12:47 → 2ANU 12:47
PROVIDERS: ADMIT Internal Medicine; ATTEND Hospitalist

== ENCOUNTER 2018-03-16 21:42 | Observation (INO) ==
[2018-03-16] MEDS ORDERED: Ipratropium/Albuterol Neb 3 ML IH ONE (22:07)
[2018-03-16] MEDS ORDERED: Isovue-370 500 ML INFUS..BTL IV ONE (22:44)
[2018-03-16 22:59] LABS: Basophils % 0.4 %; Eosinophils # 0.1 K/mcL (0.0-0.6); Eosinophils % 1.2 %; Hemoglobin 11.4 g/dL (11.5-15.4); Immature Granulocytes % 0.8 % (0-4); Lymphocytes # 0.6 K/mcL (0.6-4.6); Lymphocytes % 12.1 %; Mean Corpuscular HGB Conc 32.6 g/dL (31.6-35.5); Mean Corpuscular Hemoglobin 32.8 pg (28.0-33.3); Mean Corpuscular Volume 100.6 fL (83.0-100.0); Mean Platelet Volume 10.4 fL (9.4-12.4); Monocytes # 0.5 K/mcL (0.0-1.3); Monocytes % 9.7 %; Neutrophils # 3.8 K/mcL (1.6-8.9); Platelet Count 138 K/mcL (140-400); Red Blood Count 3.48 M/mcL (3.82-4.97); Red Cell Distribution Width 13.3 % (11.5-14.5); Segmented Neutrophils % 75.8 %
[2018-03-16 23:20] LABS: Calcium 9.5 mg/dL (8.6-10.3); Potassium 4.4 mEq/L (3.5-5.1)
[2018-03-16 23:21] LABS: Troponin I 0.03 ng/mL (< 0.04)
[2018-03-16] MEDS ORDERED: predniSONE 20 MG TABLET PO ONE (23:45)
--- NOTE | 2018-03-16 23:51 | Emergency Department Note ---
Disposition Clinical Impression: Chronic kidney disease requiring chronic dialysis Dyspnea Qualifiers: Dyspnea type: dyspnea on exertion Qualified Code(s): R06.09 - Other forms of dyspnea Disposition: Admitted As Inpatient Condition: Fair Time of Disposition: 05:17 General Adult HPI - General Chief complaint: ED Shortness of Breath/Dyspnea Stated complaint: "struggling to breathe" Time Seen by Provider: 03/16/18 21:55 Source: patient Mode of arrival: ambulatory Limitations: no limitations Nursing Notes Reviewed: Yes Vital Signs Reviewed: Yes - History of Present Illness HPI Narrative: Patient is a 77 showed female with a past medical history of COPD requiring 3 L nasal cannula at home presents for evaluation of shortness of breath that has been going on since yesterday evening. Patient states it has been gradual in onset and she has been doing scheduled albuterol nebulizer treatments at home. She denies any fevers, chills, cough, congestion, chest pain, nausea, vomiting, diaphoresis, abdominal pain or lower extremity pain. Patient has bilateral large service swelling, however she is a dialysis patient states that this is her baseline. She states that she did attend dialysis yesterday and has dialysis scheduled for tomorrow as well her group therapist is Dr. Corea. No history of blood clots. She has a dialysis fistula in the left arm. Pain Scale: 0 - Related Data Home Medications Medication Instructions Recorded Confirmed Albuterol Sulfate [Ventolin Hfa] 2 puff IH Q4H PRN 10/12/16 02/15/18 Allopurinol [Zyloprim] 100 mg PO DAILY 10/12/16 02/15/18 Aspirin 81 mg PO DAILY 10/12/16 02/15/18 Atorvastatin [Lipitor] 40 mg PO HS 10/12/16 02/15/18 Budesonide/Formoterol 160/4.5 2 puff IH BIDR 10/12/16 02/15/18 [Symbicort 160/4.5] Furosemide [Lasix] 20 mg PO QPM 10/12/16 02/15/18 Furosemide [Lasix] 40 mg PO QAM 10/12/16 02/15/18 Metoprolol XL (24 HR) Succ [Toprol 50 mg PO DAILY 01/14/17 02/15/18 Xl] Loratadine [Claritin] 10 mg PO DAILY 03/11/17 02/15/18 Sevelamer [Renvela] 4,000 mg PO TIDWM 03/11/17 02/15/18 Pregabalin [Lyrica] 50 mg PO BID 11/22/17 02/15/18 B Complex W-C No.20/Folic Acid 1 mg PO DAILY 01/01/18 02/15/18 [Virt-Caps Softgel] Ipratropium/Albuterol Neb [Duoneb] 3 ml IH Q6HR 02/15/18 02/15/18 Previous Rx's Medication Instructions Recorded Losartan [Cozaar] 50 mg PO BID #60 tablet 03/14/17 Levothyroxine [Synthroid] 37.5 mcg PO 0630 #30 tablet 01/17/18 amLODIPine [Norvasc] 10 mg PO BID #60 tablet 01/17/18 Vancomycin [Vancocin] 1,000 mg IV Q48H 7 Days #4 vial 02/20/18 Allergies Allergy/AdvReac Type Severity Reaction Status Date / Time codeine Allergy Rash Verified 03/16/18 21:48 gabapentin Allergy Itching Verified 03/16/18 21:48 All systems ED: reviewed and negative except as stated. Review of Systems: As Per HPI Constitutional: Denies: fever, chills Cardiovascular: Reports: edema (Chronic). Denies: chest pain, palpitations, dyspnea on exertion, syncope Respiratory: Reports: dyspnea. Denies: cough, wheezes, hemoptysis, sputum production Gastrointestinal: Denies: abdominal pain, nausea, vomiting Genitourinary: Denies: dysuria Musculoskeletal: Denies: back pain, neck pain Integumentary: Denies: rash Past Medical History - Past Medical History Attestation: Yes The following information was validated with the patient. Medical history: Reports: asthma, atrial fibrillation, COPD, DVT, dialysis, hyperlipidemia, hypertension, osteoporosis, renal disease Surgical history: Reports: other Psychiatric history: Reports: no psych history - Social History Smoking Status: Unknown if ever smoked Smokeless Tobacco Status: No Alcohol use: Reports: none Drug use: Reports: none Physical Exam CONSTITUTIONAL: Appears to be in mild respiratory distress, patient has tachypnea however her oxygen saturation is normal on 3 L. A&O X 3. Frail appearing HEAD: Normocephalic; atraumatic EYES: PERRL, no scleral icterus NOSE: The nose is normal in appearance without rhinorrhea NECK: No JVD or distended neck veins RESP: Normal chest excursion with respiration; breath sounds clear and equal bilaterally; no wheezes, rhonchi, or rales CARD: Regular rhythm, without murmurs, rub or gallop ABD: Non-distended; non-tender, soft, without rigidity, rebound or guarding,no pulsatile mass CHEST: No pain with palpation SKIN: Normal for age and race; warm and dry without diaphoresis ; no apparent lesions EXTREMITIES: Pulses are 2 plus and equal times 4 extremities, patient has significant 2+ pitting edema bilateral lower extremities. No calf tenderness. - General Limitations: no limitations General appearance: alert, in no apparent distress Course Course Narrative: Patient presents for shortness of breath with a physical exam that reveals clear lung sounds. Plan at this time is to give the patient a DuoNeb treatment to see if that improves her symptoms. She will hold on steroids at this time given that there is no wheezing. Patient does undergo dialysis 3 times a week and consulted with Dr. Anthony discussed CTA with contrast to rule out PE and he agrees and states that she can undergo dialysis tomorrow. Past medical record also reveals that the patient does have a history of mucous plugging in which she sees Dr. Phillips. 23:50 Patient's symptoms improved after her nebulizer treatment. By this time is give her a single oral dose of steroids and she did have improvement with the breathing treatment. She is asymptomatic at this time. Patient's hemoglobin and BNP appear to be improved when compared to prior labs. Patient's chest x- ray impression reads mild pulmonary vascular congestion however when compared to the study done on 02/12/2018 that appears to be improved. Patient will be admitted to the hospitalist service. Will require consult in the morning for pulmonology for possible bronch to remove mucus plug and consult to nephrology for dialysis today. Vital Signs Temperature 94.8 F L 03/16/18 21:46 Pulse Rate 99 03/16/18 21:46 Respiratory Rate 24 03/16/18 21:46 Blood Pressure 172/76 03/16/18 21:46 O2 Sat by Pulse Oximetry 96 03/16/18 21:46 Temperature 98.6 F 03/17/18 04:11 Pulse Rate 66 03/17/18 04:11 Respiratory Rate 16 03/17/18 04:11 Blood Pressure 186/79 03/17/18 04:11 O2 Sat by Pulse Oximetry 94 03/17/18 04:11 Oxygen Delivery Oxygen Delivery Nasal Cannula Medical Decision Making - Medical Records Medical records reviewed: Yes I reviewed the patient's medical records. - Lab Data Lab results reviewed: Yes I reviewed the patient's lab results. Result diagrams: 03/16/18 22:45 03/16/18 22:45 Lab Results 03/16/18 03/16/18 03/16/18 Range/Units 22:45 22:45 22:45 WBC 5.1 (4.3-11.1) K/mcL RBC 3.48 L (3.82-4.97) M/mcL Hgb 11.4 L (11.5-15.4) g/dL Hct 35.0 L (35.3-44.9) % MCV 100.6 H (83.0-100.0) fL MCH 32.8 (28.0-33.3) pg MCHC 32.6 (31.6-35.5) g/dL RDW 13.3 (11.5-14.5) % Plt Count 138 L (140-400) K/mcL MPV 10.4 (9.4-12.4) fL Immature Gran % 0.8 (0-4) % Seg Neutrophils % 75.8 % Lymphocytes % 12.1 % Monocytes % 9.7 % Eosinophils % 1.2 % Basophils % 0.4 % Neutrophils # 3.8 (1.6-8.9) K/mcL Lymphocytes # 0.6 (0.6-4.6) K/mcL Monocytes # 0.5 (0.0-1.3) K/mcL Eosinophils # 0.1 (0.0-0.6) K/mcL Basophils # 0.0 (0.0-0.2) K/mcL Sodium 138 (136-145) mEq/L Potassium 4.4 (3.5-5.1) mEq/L Chloride 97 L (98-107) mEq/L Carbon Dioxide 27 (23-29) mEq/L BUN 35 H (8-23) mg/dL Creatinine 5.54 H (0.60-1.20) mg/dL Est GFR ( Amer) 9 L (> 60) Est GFR (Non-Af Amer) 7 L (> 60) BUN/Creatinine Ratio 6 (6-26) Glucose 104 (70-105) mg/dL Calculated Osmolality 294 (280-300) Lactic Acid 0.9 (0.5-2.2) mmol/L Calcium 9.5 (8.6-10.3) mg/dL Troponin I 0.03 (< 0.04) ng/mL B-Natriuretic Peptide (Less than 100) pg/mL 03/16/18 Range/Units 22:45 WBC (4.3-11.1) K/mcL RBC (3.82-4.97) M/mcL Hgb (11.5-15.4) g/dL Hct (35.3-44.9) % MCV (83.0-100.0) fL MCH (28.0-33.3) pg MCHC (31.6-35.5) g/dL RDW (11.5-14.5) % Plt Count (140-400) K/mcL MPV (9.4-12.4) fL Immature Gran % (0-4) % Seg Neutrophils % % Lymphocytes % % Monocytes % % Eosinophils % % Basophils % % Neutrophils # (1.6-8.9) K/mcL Lymphocytes # (0.6-4.6) K/mcL Monocytes # (0.0-1.3) K/mcL Eosinophils # (0.0-0.6) K/mcL Basophils # (0.0-0.2) K/mcL Sodium (136-145) mEq/L Potassium (3.5-5.1) mEq/L Chloride (98-107) mEq/L Carbon Dioxide (23-29) mEq/L BUN (8-23) mg/dL Creatinine (0.60-1.20) mg/dL Est GFR ( Amer) (> 60) Est GFR (Non-Af Amer) (> 60) BUN/Creatinine Ratio (6-26) Glucose (70-105) mg/dL Calculated Osmolality (280-300) Lactic Acid (0.5-2.2) mmol/L Calcium (8.6-10.3) mg/dL Troponin I (< 0.04) ng/mL B-Natriuretic Peptide 2918 H (Less than 100) pg/mL - Radiology Data Radiology results reviewed: Yes I reviewed the patient's radiology results. Chest X-Ray 03/16/18 22:06 IMPRESSION: Mild pulmonary vascular congestion. Elevated left hemidiaphragm. D/ / Ashish Park MD / Ashish Park MD Interpreting Provider: Ashish Park MD Chest CTA 03/17/18 22:44 IMPRESSION: 1. No pulmonary embolism. 2. Significant atelectasis in the left lower lobe may be due to mucous plugging which was observed on prior imaging. Peribronchial thickening and scattered reticular and ground-glass opacities are observed elsewhere in the bilateral lungs. Findings would favor an infectious etiology such as bronchiolitis. 3. Reactive mediastinal lymph node enlargement. D/ / Shant Meredith MD / Shant Meredith MD Interpreting Provider: Shant Meredith MD - EKG Data EKG #1 EKG attestation: Yes I reviewed and interpreted this EKG. EKG results narrative: EKG done at 22:10 shows sinus rhythm at a rate of 62 bpm. Normal axis. NOrmal intervals. No ST elevation, depression or Q waves present. Unchanged when compared to EKG down on 02/15/2018.
--- NOTE | 2018-03-17 03:12 | Emergency Department Note ---
Disposition Clinical Impression: Dyspnea, Chronic kidney disease requiring chronic dialysis Disposition: Admitted As Inpatient Condition: Fair General Adult HPI - General Chief complaint: ED Shortness of Breath/Dyspnea Stated complaint: "struggling to breathe" Time Seen by Provider: 03/16/18 21:55 Source: patient Mode of arrival: ambulatory Limitations: no limitations Nursing Notes Reviewed: Yes Vital Signs Reviewed: Yes - History of Present Illness Pain Scale: 0 - Related Data Home Medications Medication Instructions Recorded Confirmed Albuterol Sulfate [Ventolin Hfa] 2 puff IH Q4H PRN 10/12/16 02/15/18 Allopurinol [Zyloprim] 100 mg PO DAILY 10/12/16 02/15/18 Aspirin 81 mg PO DAILY 10/12/16 02/15/18 Atorvastatin [Lipitor] 40 mg PO HS 10/12/16 02/15/18 Budesonide/Formoterol 160/4.5 2 puff IH BIDR 10/12/16 02/15/18 [Symbicort 160/4.5] Furosemide [Lasix] 20 mg PO QPM 10/12/16 02/15/18 Furosemide [Lasix] 40 mg PO QAM 10/12/16 02/15/18 Metoprolol XL (24 HR) Succ [Toprol 50 mg PO DAILY 01/14/17 02/15/18 Xl] Loratadine [Claritin] 10 mg PO DAILY 03/11/17 02/15/18 Sevelamer [Renvela] 4,000 mg PO TIDWM 03/11/17 02/15/18 Pregabalin [Lyrica] 50 mg PO BID 11/22/17 02/15/18 B Complex W-C No.20/Folic Acid 1 mg PO DAILY 01/01/18 02/15/18 [Virt-Caps Softgel] Ipratropium/Albuterol Neb [Duoneb] 3 ml IH Q6HR 02/15/18 02/15/18 Previous Rx's Medication Instructions Recorded Losartan [Cozaar] 50 mg PO BID #60 tablet 03/14/17 Levothyroxine [Synthroid] 37.5 mcg PO 0630 #30 tablet 01/17/18 amLODIPine [Norvasc] 10 mg PO BID #60 tablet 01/17/18 Vancomycin [Vancocin] 1,000 mg IV Q48H 7 Days #4 vial 02/20/18 Allergies Allergy/AdvReac Type Severity Reaction Status Date / Time codeine Allergy Rash Verified 03/16/18 21:48 gabapentin Allergy Itching Verified 03/16/18 21:48 Constitutional: Denies: fever, chills Cardiovascular: Reports: edema (Chronic). Denies: chest pain, palpitations, dyspnea on exertion, syncope Respiratory: Reports: dyspnea. Denies: cough, wheezes, hemoptysis, sputum production Gastrointestinal: Denies: abdominal pain, nausea, vomiting Genitourinary: Denies: dysuria Musculoskeletal: Denies: back pain, neck pain Integumentary: Denies: rash Past Medical History - Past Medical History Medical history: Reports: asthma, atrial fibrillation, COPD, DVT, dialysis, hyperlipidemia, hypertension, osteoporosis, renal disease Surgical history: Reports: other Psychiatric history: Reports: no psych history - Social History Smoking Status: Unknown if ever smoked Smokeless Tobacco Status: No Alcohol use: Reports: none Drug use: Reports: none Physical Exam - General Limitations: no limitations General appearance: alert, in no apparent distress Course Vital Signs Temperature 94.8 F L 03/16/18 21:46 Pulse Rate 99 03/16/18 21:46 Respiratory Rate 24 03/16/18 21:46 Blood Pressure 172/76 03/16/18 21:46 O2 Sat by Pulse Oximetry 96 03/16/18 21:46 Temperature 98.6 F 03/17/18 04:11 Pulse Rate 66 03/17/18 04:11 Respiratory Rate 16 03/17/18 04:11 Blood Pressure 186/79 03/17/18 04:11 O2 Sat by Pulse Oximetry 94 03/17/18 04:11 Oxygen Delivery Oxygen Delivery Nasal Cannula Medical Decision Making - Lab Data Result diagrams: 03/16/18 22:45 03/16/18 22:45 Lab Results 03/16/18 03/16/18 03/16/18 Range/Units 22:45 22:45 22:45 WBC 5.1 (4.3-11.1) K/mcL RBC 3.48 L (3.82-4.97) M/mcL Hgb 11.4 L (11.5-15.4) g/dL Hct 35.0 L (35.3-44.9) % MCV 100.6 H (83.0-100.0) fL MCH 32.8 (28.0-33.3) pg MCHC 32.6 (31.6-35.5) g/dL RDW 13.3 (11.5-14.5) % Plt Count 138 L (140-400) K/mcL MPV 10.4 (9.4-12.4) fL Immature Gran % 0.8 (0-4) % Seg Neutrophils % 75.8 % Lymphocytes % 12.1 % Monocytes % 9.7 % Eosinophils % 1.2 % Basophils % 0.4 % Neutrophils # 3.8 (1.6-8.9) K/mcL Lymphocytes # 0.6 (0.6-4.6) K/mcL Monocytes # 0.5 (0.0-1.3) K/mcL Eosinophils # 0.1 (0.0-0.6) K/mcL Basophils # 0.0 (0.0-0.2) K/mcL Sodium 138 (136-145) mEq/L Potassium 4.4 (3.5-5.1) mEq/L Chloride 97 L (98-107) mEq/L Carbon Dioxide 27 (23-29) mEq/L BUN 35 H (8-23) mg/dL Creatinine 5.54 H (0.60-1.20) mg/dL Est GFR ( Amer) 9 L (> 60) Est GFR (Non-Af Amer) 7 L (> 60) BUN/Creatinine Ratio 6 (6-26) Glucose 104 (70-105) mg/dL Calculated Osmolality 294 (280-300) Lactic Acid 0.9 (0.5-2.2) mmol/L Calcium 9.5 (8.6-10.3) mg/dL Troponin I 0.03 (< 0.04) ng/mL B-Natriuretic Peptide (Less than 100) pg/mL 03/16/18 Range/Units 22:45 WBC (4.3-11.1) K/mcL RBC (3.82-4.97) M/mcL Hgb (11.5-15.4) g/dL Hct (35.3-44.9) % MCV (83.0-100.0) fL MCH (28.0-33.3) pg MCHC (31.6-35.5) g/dL RDW (11.5-14.5) % Plt Count (140-400) K/mcL MPV (9.4-12.4) fL Immature Gran % (0-4) % Seg Neutrophils % % Lymphocytes % % Monocytes % % Eosinophils % % Basophils % % Neutrophils # (1.6-8.9) K/mcL Lymphocytes # (0.6-4.6) K/mcL Monocytes # (0.0-1.3) K/mcL Eosinophils # (0.0-0.6) K/mcL Basophils # (0.0-0.2) K/mcL Sodium (136-145) mEq/L Potassium (3.5-5.1) mEq/L Chloride (98-107) mEq/L Carbon Dioxide (23-29) mEq/L BUN (8-23) mg/dL Creatinine (0.60-1.20) mg/dL Est GFR ( Amer) (> 60) Est GFR (Non-Af Amer) (> 60) BUN/Creatinine Ratio (6-26) Glucose (70-105) mg/dL Calculated Osmolality (280-300) Lactic Acid (0.5-2.2) mmol/L Calcium (8.6-10.3) mg/dL Troponin I (< 0.04) ng/mL B-Natriuretic Peptide 2918 H (Less than 100) pg/mL Attestation Statement - Attestation Attestation: I, Trey Medina MD, personally evaluated this patient and discussed their management with the resident physician. I reviewed the resident's note and agree with the documented findings, medical decision making, and plan of care. 77-year-old female with history of oxygen-dependent COPD presents to the emergency department with a complaint of increasing shortness of breath over the past few days. Some slight increased cough tonight. No sputum production. No fever. No chest pain. She states the shortness of breath is worse with exertion or getting up and moving around. Patient is on hemodialysis. On examination patient is a well-developed well-nourished well-appearing elderly female in no acute distress. She is alert and oriented 3. There is no cyanosis or diaphoresis. Rest sounds are decreased but equal bilaterally. No wheezes noted. Heart regular rate and rhythm with a 2/6 systolic murmur. Abdomen soft and nontender with normal bowel sounds. One plus pedal edema. Labs reviewed. EKG showed normal sinus rhythm with ventricular rate of 62. No acute ST segment elevation or depression. CTA of the chest showed: 1. No pulmonary embolism. 2. Significant atelectasis in the left lower lobe may be due to mucous plugging which was observed on prior imaging. Peribronchial thickening and scattered reticular and ground-glass opacities are observed elsewhere in the bilateral lungs. Findings would favor an infectious etiology such as bronchiolitis. 3. Reactive mediastinal lymph node enlargement. The hospitalist, Dr. Gutierrez, was consulted and accepted admission of the patient.
[2018-03-17] MEDS ORDERED: Acetaminophen 325 MG TABLET PO PRN (04:53)
[2018-03-17] MEDS ORDERED: Naloxone 0.4 MG/ML INJ IVP PRN (04:53)
[2018-03-17] MEDS ORDERED: Ipratropium/Albuterol Neb 3 ML IH PRN (04:56)
--- NOTE | 2018-03-17 05:13 | Internal Med History&Physical ---
Date of Encounter: 03/17/18 Time of Encounter: 04:30 Internal Medicine - H&P: HPI Chief complaint: Shortness of breath Admitted From: Home Plans for Post Hospital Care: Home History of present illness: Ms. Carmona is a 77 year old female present to ER for shortness of breath. Past medical history is significant for COPD on home oxygen, hypertension, end- stage renal disease on hemodialysis. Patient has increased the shortness of breath for 2 days and even worse yesterday. Patient has nonproductive cough. Patient denies fever, chest pain, nausea, or vomiting. In the emergency room, CTA was done and patient was found left lower lobe atelectasis and suspected mucous plug. Patient was also found possible bronchiolitis. No PE identified. Patient was treated with nebulizer and her symptoms has improved. Patient was admitted for further management. Past Med Surg Social Fam HX - Past Medical History Medical history: asthma, atrial fibrillation, COPD, DVT, dialysis, hyperlipidemia, hypertension, osteoporosis, renal disease Additional medical history: broken right foot (2001), right arm fistula Psychiatric history: no psych history - Past Surgical History Surgical History: other Additional surgical history: back surgery L4-L5, , left nephrectomy for donation , cataract removal, CTR-left, A-V fistula placed in left arm. - Social History Smoking Status: Former smoker Smokeless Tobacco Status: No Alcohol use: none Drug use: none - Family History Mother Living Status: Hx Family Cardiac Disorders: No Hx Family Respiratory Disorders: No Hx Family Cancer: Yes (colon) Hx Family GI Disorders: No Hx Family Genitourinary Disorders: No Hx Family Endocrine Disorder: Yes (dm) Hx Family Musculoskeletal Disorders: No Hx Family Neuromuscular Disorders: No Hx Family Neurologic Disorders: No Hx Family HEENT Disorders: No Hx Family Autoimmune Disorders: No Hx Family Reproductive Disorders: No Hx Family Psychosocial Disorders: No Hx Family Medical Disorders: No Father History Unknown: Yes Internal Medicine - H&P: Meds Albuterol Sulfate [Ventolin Hfa] 2 puff IH Q4H PRN 10/12/16 [History] Allopurinol [Zyloprim] 100 mg PO DAILY 10/12/16 [History] Aspirin 81 mg PO DAILY 10/12/16 [History] Atorvastatin [Lipitor] 40 mg PO HS 10/12/16 [History] Budesonide/Formoterol 160/4.5 [Symbicort 160/4.5] 2 puff IH BIDR 10/12/16 [ History] Furosemide [Lasix] 20 mg PO QPM 10/12/16 [History] Furosemide [Lasix] 40 mg PO QAM 10/12/16 [History] Metoprolol XL (24 HR) Succ [Toprol Xl] 50 mg PO DAILY 01/14/17 [History] Loratadine [Claritin] 10 mg PO DAILY 03/11/17 [History] Sevelamer [Renvela] 4,000 mg PO TIDWM 03/11/17 [History] Losartan [Cozaar] 50 mg PO BID #60 tablet 03/14/17 [Rx] Pregabalin [Lyrica] 50 mg PO BID 11/22/17 [History] B Complex W-C No.20/Folic Acid [Virt-Caps Softgel] 1 mg PO DAILY 01/01/18 [ History] Levothyroxine [Synthroid] 37.5 mcg PO 0630 #30 tablet 01/17/18 [Rx] amLODIPine [Norvasc] 10 mg PO BID #60 tablet 01/17/18 [Rx] Ipratropium/Albuterol Neb [Duoneb] 3 ml IH Q6HR 02/15/18 [History] Vancomycin [Vancocin] 1,000 mg IV Q48H 7 Days #4 vial 02/20/18 [Rx] 3 Allergy/AdvReac Type Severity Reaction Status Date / Time codeine Allergy Rash Verified 03/16/18 21:48 gabapentin Allergy Itching Verified 03/16/18 21:48 All Systems PM: A 10-system review of systems was performed and is negative for pertinent findings except as documented above in the HPI. - Constitutional Vitals: Temp Pulse Resp BP Pulse Ox 98.6 F 66 16 186/79 94 03/17/18 04:11 03/17/18 04:11 03/17/18 04:11 03/17/18 04:11 03/17/18 04:11 General appearance: Present: A&O X 3, no acute distress, answers questions appropriately - Head Head exam: Present: atraumatic, normocephalic - Eye Eye exam: Present: PERRL, conjuntiva pink, sclera anicteric Pupils: Present: PERRL - Neck Neck exam general surgery: Present: supple, trachea midline. Absent: lymphadenopathy - Respiratory Respiratory exam: Present: CTAB. Absent: accessory muscle use, rales, rhonchi, wheezes - Cardiovascular Cardiovascular exam: Present: RRR, +S1, +S2. Absent: diastolic murmur, gallop, rubs, systolic murmur - GI/Abdominal GI/Abdominal exam: Present: normal bowel sounds, soft, no peritoneal signs. Absent: distended, tenderness - Extremities Exam Extremities exam: Present: pedal edema (Mild pedal edema bilaterally), warm, radial pulses palpable and symmetrical. Absent: calf tenderness, cyanotic - Neurological Exam Neurological exam: Present: CN II-XII intact, oriented X3, no focal deficits. Absent: pronater drift, facial droop, speech deficit - Skin Skin exam: Present: dry, intact Internal Med - H&P Results - Labs CBC & Chem 7: 03/16/18 22:45 03/16/18 22:45 - Impressions ITS Impressions Chest CTA 03/17/18 22:44 IMPRESSION: 1. No pulmonary embolism. 2. Significant atelectasis in the left lower lobe may be due to mucous plugging which was observed on prior imaging. Peribronchial thickening and scattered reticular and ground-glass opacities are observed elsewhere in the bilateral lungs. Findings would favor an infectious etiology such as bronchiolitis. 3. Reactive mediastinal lymph node enlargement. D/ / Shant Meredith MD / Shant Meredith MD Interpreting Provider: Shant Meredith MD - Assessment and plan (1) Hypertension Current Visit: Yes Status: Acute Assessment and plan: Continue home medications as home medication is a verified. Hydralazine IV when necessary. Qualifiers: Hypertension type: essential hypertension Qualified Code(s): I10 - Essential (primary) hypertension (2) Acute exacerbation of chronic obstructive airways disease Current Visit: No Status: Acute Assessment and plan: Patient has increased shortness of breath. History of COPD. Symptoms improved after nebulizer treatment. Will treat patient as COPD exacerbation. - CTA shows possible bronchiolitis. We will treat patient with antibiotics, steroids, and bronchodilator. (3) DVT prophylaxis Current Visit: No Status: Acute Assessment and plan: EPCD (4) End-stage renal disease Current Visit: No Status: Acute Assessment and plan: Continue dialysis. Consult nephrology. (5) Atelectasis Current Visit: No Status: Chronic Assessment and plan: Possibly due to mucous plug. Will consult pulmonology in a.m. (6) Mucus plugging of bronchi Current Visit: No Status: Suspected Assessment and plan: CTA suspected mucus plugging. - We will consult pulmonology in a.m. - Keep nothing by mouth at this point in case procedure is needed. - Time Spent With Patient Total time spent is greater than 50% in coordination of care (as documented) at patient's floor/unit and/or counseling patient: 40 minutes Greater than 35 minutes
[2018-03-17] MEDS: Azithromycin 250 MG in D5% in Water 250 ML IVPB SCH (06:18)
[2018-03-17] MEDS: Metoprolol XL (24 HR) Succ 50 MG TAB.ER.24H PO SCH (08:07)
[2018-03-17] MEDS: predniSONE 20 MG TABLET PO SCH (08:07)
--- NOTE | 2018-03-17 09:18 | Event Note ---
Date of Encounter: 03/17/18 Time of Encounter: 09:15 77 F Seen and evaluated at the bedside Admitted to obs and [facility] managed for COPDE< bronchiolitis with mucus plug She has chronic resp failure on home O2, COPD, HTN Imaging revealed significant atelectasis in LLL due to mucus plugging, bronchiolitis She has no new complains She is NPO for [possible bronch, will call Pulm. Chest exam with bilateral diminished breath sounds Continue current management
[2018-03-17] MEDS: Budesonide/Formoterol 160/4.5 MDI IH SCH ×2 (09:27→21:51)
[2018-03-17] MEDS: Ipratropium/Albuterol Neb 3 ML IH SCH ×3 (09:27→21:51)
--- NOTE | 2018-03-17 09:39 | Nephrology Consult Note ---
Date of Encounter: 03/17/18 Time of Encounter: 09:15 Assessment and Plan (1) ESRD on dialysis Current Visit: No Status: Chronic Pulmonary consulted, possible bronch today. HD today keeping MWF schedule. Orders given. History of Present Illness - Reason for Consult Consult date: 03/17/18 end stage renal disease - History of Present Illness Ms. Askew is a 77 year old female with ESRD who dialyzes at [place]. Last HD on Tuesday. Ms. Askew presented to ER yesterday with complaints of shortness of breath for past few days. She has had several recent hospital stays for mucous plugging, requiring bronch and prior intubation/vent support. Other PMH-asthma, atrial fibrillation, COPD, DVT, dialysis, hyperlipidemia, hypertension, osteoporosis, renal disease. CTA of chest- left lower lobe atelectasis and suspected mucous plugging. Pulmonary has been consulted and patient is NPO for possible bronch. Past Med Surg Social Fam HX - Past Medical History Medical history: asthma, atrial fibrillation, COPD, DVT, dialysis, hyperlipidemia, hypertension, osteoporosis, renal disease Additional medical history: broken right foot (2001), right arm fistula Psychiatric history: no psych history - Past Surgical History Surgical History: other Additional surgical history: back surgery L4-L5, , left nephrectomy for donation , cataract removal, CTR-left, A-V fistula placed in left arm. - Social History Smoking Status: Unknown if ever smoked Smokeless Tobacco Status: No Alcohol use: none Drug use: none - Family History Mother Living Status: Hx Family Cardiac Disorders: No Hx Family Respiratory Disorders: No Hx Family Cancer: Yes (colon) Hx Family GI Disorders: No Hx Family Genitourinary Disorders: No Hx Family Endocrine Disorder: Yes (dm) Hx Family Musculoskeletal Disorders: No Hx Family Neuromuscular Disorders: No Hx Family Neurologic Disorders: No Hx Family HEENT Disorders: No Hx Family Autoimmune Disorders: No Hx Family Reproductive Disorders: No Hx Family Psychosocial Disorders: No Hx Family Medical Disorders: No Father History Unknown: Yes Medications and Allergies Albuterol Sulfate [Ventolin Hfa] 2 puff IH Q4H PRN 10/12/16 [History] Aspirin 81 mg PO DAILY 10/12/16 [History] Atorvastatin [Lipitor] 40 mg PO HS 10/12/16 [History] Budesonide/Formoterol 160/4.5 [Symbicort 160/4.5] 2 puff IH BIDR 10/12/16 [ History] Furosemide [Lasix] 20 mg PO QPM 10/12/16 [History] Furosemide [Lasix] 40 mg PO QAM 10/12/16 [History] Metoprolol XL (24 HR) Succ [Toprol Xl] 50 mg PO DAILY 01/14/17 [History] Loratadine [Claritin] 10 mg PO DAILY 03/11/17 [History] Sevelamer [Renvela] 1,600 mg PO TIDWM 03/11/17 [History] Losartan [Cozaar] 50 mg PO BID #60 tablet 03/14/17 [Rx] Pregabalin [Lyrica] 50 mg PO BID 11/22/17 [History] B Complex W-C No.20/Folic Acid [Virt-Caps Softgel] 1 mg PO DAILY 01/01/18 [ History] Ipratropium/Albuterol Neb [Duoneb] 3 ml IH Q6HR 02/15/18 [History] Allopurinol [Zyloprim 100 MG] 100 mg PO DAILY 03/17/18 [History] Hydralazine HCl 50 mg PO TID 03/17/18 [History] Levothyroxine Sodium [Levoxyl] 50 mcg PO DAILY 03/17/18 [History] amLODIPine [Norvasc] 5 mg PO BID 03/17/18 [History] 3 Allergy/AdvReac Type Severity Reaction Status Date / Time codeine Allergy Rash Verified 03/16/18 21:48 gabapentin Allergy Itching Verified 03/16/18 21:48 Review of Systems All Systems: reviewed and no additional remarkable complaints except as stated Exam - Vital Signs Vital signs: Initial Vital Signs Temp Pulse Resp BP Pulse Ox 94.8 F L 99 24 172/76 96 03/16/18 21:46 03/16/18 21:46 03/16/18 21:46 03/16/18 21:46 03/16/18 21:46 Vital Signs - Last 8 Hours Temp Pulse Resp BP Pulse Ox 03/17/18 07:09 98.5 F 70 14 135/62 96 03/17/18 04:11 98.6 F 66 16 186/79 94 Intake and Output 03/16/18 03/17/18 03/17/18 23:59 07:59 15:59 Other: Weight 70.3 kg Patient Weight 03/17/18 23:59 Weight 70.3 kg - General Appearance General appearance: well-developed, well-nourished, appears started age EENT: mucous membranes moist Neck: no JVD Respiratory: clear Cardiology: edema, regular rate, regular rhythm Additional Comments: 2+ LE - Dialysis Access Dialysis Vascular Access: Arteriovenous Fistula Gastrointestinal: normoactive bowel sounds, no tenderness Integumentary: warm and dry Neurologic: alert and oriented x3 Results - Lab Results 03/16/18 22:45 03/16/18 22:45 Most recent lab results Calcium 9.5 mg/dL (8.6-10.3) 03/16/18 22:45 Consult Discharge Plan - Plan Referrals: Vladimir Chaidez MD [Primary Care Provider] -
[2018-03-17] MEDS ORDERED: 0.9 % Sodium Chloride 250 ML IVC PRN (09:49)
[2018-03-17] MEDS ORDERED: 0.9 % Sodium Chloride 1,000 ML PRIME SCH (10:00)
[2018-03-17 11:41] LABS: Hepatitis B Surface Antibody 0.86 mIU/mL; Hepatitis B Surface Antigen Nonreactive (Nonreactive)
--- NOTE | 2018-03-17 13:04 | Pulmonology Consult Note ---
<RogersMelinda M - Last Filed: 03/17/18 13:19> Date of Encounter: 03/17/18 Medications and Allergies Albuterol Sulfate [Ventolin Hfa] 2 puff IH Q4H PRN 10/12/16 [History] Aspirin 81 mg PO DAILY 10/12/16 [History] Atorvastatin [Lipitor] 40 mg PO HS 10/12/16 [History] Budesonide/Formoterol 160/4.5 [Symbicort 160/4.5] 2 puff IH BIDR 10/12/16 [ History] Furosemide [Lasix] 20 mg PO QPM 10/12/16 [History] Furosemide [Lasix] 40 mg PO QAM 10/12/16 [History] Metoprolol XL (24 HR) Succ [Toprol Xl] 50 mg PO DAILY 01/14/17 [History] Loratadine [Claritin] 10 mg PO DAILY 03/11/17 [History] Sevelamer [Renvela] 1,600 mg PO TIDWM 03/11/17 [History] Losartan [Cozaar] 50 mg PO BID #60 tablet 03/14/17 [Rx] Pregabalin [Lyrica] 50 mg PO BID 11/22/17 [History] B Complex W-C No.20/Folic Acid [Virt-Caps Softgel] 1 mg PO DAILY 01/01/18 [ History] Ipratropium/Albuterol Neb [Duoneb] 3 ml IH Q6HR 02/15/18 [History] Allopurinol [Zyloprim 100 MG] 100 mg PO DAILY 03/17/18 [History] Hydralazine HCl 50 mg PO TID 03/17/18 [History] Levothyroxine Sodium [Levoxyl] 50 mcg PO DAILY 03/17/18 [History] amLODIPine [Norvasc] 5 mg PO BID 03/17/18 [History] 3 Allergy/AdvReac Type Severity Reaction Status Date / Time codeine Allergy Rash Verified 03/16/18 21:48 gabapentin Allergy Itching Verified 03/16/18 21:48 All Systems: The remainder of the systems were reviewed and are negative Physical Examination Vital Signs: Vital Signs, Last 4 Hours Temp Resp BP Pulse Ox 03/17/18 12:55 140/67 03/17/18 12:40 143/69 03/17/18 12:25 140/68 03/17/18 12:10 142/72 03/17/18 11:55 143/72 03/17/18 11:40 139/78 03/17/18 11:25 155/71 03/17/18 11:10 153/73 03/17/18 10:55 147/75 03/17/18 10:40 138/73 03/17/18 10:25 139/72 03/17/18 10:10 97.5 F L 20 140/71 03/17/18 09:27 16 97 Results - Laboratory Findings CBC and BMP: 03/16/18 22:45 03/16/18 22:45 Abnormal lab findings: Abnormal lab results RBC 3.48 M/mcL (3.82-4.97) L 03/16/18 22:45 Hgb 11.4 g/dL (11.5-15.4) L 03/16/18 22:45 Hct 35.0 % (35.3-44.9) L 03/16/18 22:45 MCV 100.6 fL (83.0-100.0) H 03/16/18 22:45 Plt Count 138 K/mcL (140-400) L 03/16/18 22:45 Chloride 97 mEq/L (98-107) L 03/16/18 22:45 BUN 35 mg/dL (8-23) H 03/16/18 22:45 Creatinine 5.54 mg/dL (0.60-1.20) H 03/16/18 22:45 Est GFR ( Amer) 9 (> 60) L 03/16/18 22:45 Est GFR (Non-Af Amer) 7 (> 60) L 03/16/18 22:45 B-Natriuretic Peptide 2918 pg/mL (Less than 100) H 03/16/18 22:45 - Clinical Findings Intake & Output: Intake & Output 03/16/18 03/17/18 03/17/18 23:59 07:59 15:59 Intake Total 600 / 600 Balance 600 / 600 Weight 70.3 kg 70.3 kg Consult Discharge Plan - Plan Referrals: Vladimir Chaidez MD [Primary Care Provider] - 03/20/18 2:00 pm - Attending Attestation I examined this patient and my medical decision-making was reviewed with the Resident Physician. I agree with the documented findings, disposition and treatment plan as described except to the extent set forth below. Patient seen and examined. Labs, radiology, chart personally reviewed. Agree with resident's history and physical, assessment, plan with following comments: FUR NAILER: Patient follows commands, Pulmonary: Acceptable oxygenation and ventilation and she is feeling much better. Reviewing Her CAT scan I do not see any evidence of large mucous plugs that bronchoscopy would be of much help. Bronchodilators as well as flutter follow with to be helpful. I suspect also volume overload head CT a major component for her dyspnea since patient missed her dialysis and I have seen patient and examined during dialysis and she is feeling already better. Thank you very much for consultation and patient is establish in the clinic and she can follow-up as scheduled. <Shivam Cloud - Last Filed: 03/17/18 14:48> Date of Encounter: 03/17/18 Time of Encounter: 08:41 Assessment and Plan (1) Mucus plugging of bronchi Current Visit: Yes Status: Chronic 1. Has had multiple episodes in the past versus atelectasis versus CHF 2. Recommend flutter valve therapy, pulmonary toilet and continued bronchodilators 3. Patient stable currently and will not require bronchoscopy at this time, likely related to needing dialysis as she is feeling better already (2) Acute exacerbation of chronic obstructive pulmonary disease (COPD) Current Visit: Yes Status: Acute 1. Continue short burst of steroids and nebs and optimization of medical therapy History of Present Illness Consult date: 03/17/18 Requesting physician: Сергей Gutierrez Reason for consult: dyspnea Chief complaint: dyspnea History of present illness: patient presented to the ER with increased shortness of breath and cough. Patient is on dialysis MWF and has a h/o CHF and O2 dependent COPD. States slight increase in her cough from baseline. Adams better after steroids and nebs in the ED but CTA chest to r/o PE showed LLL atelectasis versus mucous plugging. Patient is well know to the pulm service and has required bronchoscopy in the past. She states she feels much better than when she arrived. She's in no acute distress and denies any fevers or pain. NO abdominal pain, n/v/d. Past Med Surg Social Fam HX - Past Medical History Medical history: asthma, atrial fibrillation, COPD, DVT, dialysis, hyperlipidemia, hypertension, osteoporosis, renal disease Additional medical history: broken right foot (2002), right arm fistula Psychiatric history: no psych history - Past Surgical History Surgical History: other Additional surgical history: back surgery L4-L5, , left nephrectomy for donation , cataract removal, CTR-left, A-V fistula placed in left arm. - Social History Smoking Status: Unknown if ever smoked Smokeless Tobacco Status: No Alcohol use: none Drug use: none - Family History Mother Living Status: Hx Family Cardiac Disorders: No Hx Family Respiratory Disorders: No Hx Family Cancer: Yes (colon) Hx Family GI Disorders: No Hx Family Genitourinary Disorders: No Hx Family Endocrine Disorder: Yes (dm) Hx Family Musculoskeletal Disorders: No Hx Family Neuromuscular Disorders: No Hx Family Neurologic Disorders: No Hx Family HEENT Disorders: No Hx Family Autoimmune Disorders: No Hx Family Reproductive Disorders: No Hx Family Psychosocial Disorders: No Hx Family Medical Disorders: No Father History Unknown: Yes All Systems: The remainder of the systems were reviewed and are negative Review of Systems: As reviewed in the HPI. All other systems reviewed are negative or normal. Physical Examination Vital Signs: Vital Signs, Last 4 Hours Temp Resp BP Pulse Ox 03/17/18 12:55 140/67 03/17/18 12:40 143/69 03/17/18 12:25 140/68 03/17/18 12:10 142/72 03/17/18 11:55 143/72 03/17/18 11:40 139/78 03/17/18 11:25 155/71 03/17/18 11:10 153/73 03/17/18 10:55 147/75 03/17/18 10:40 138/73 03/17/18 10:25 139/72 03/17/18 10:10 97.5 F L 20 140/71 03/17/18 09:27 16 97 General appearance: no acute distress, alert Eyes: nonicteric ENT: oropharynx moist Neck: supple Effort: normal Inspection: other (obese) Auscultation: bilateral: wheezes Cardiovascular: regular rate and rhythm Gastrointestinal: normoactive bowel sounds, soft Integumentary: normal Extremities: no cyanosis, edema Musculoskeletal: no deformities, ROM normal normal mental status, non-focal exam mood appropriate, affect normal Results - Laboratory Findings CBC and BMP: 03/16/18 22:45 06/07/18 22:45 Abnormal lab findings: Abnormal lab results RBC 3.48 M/mcL (3.82-4.97) L 03/16/18 22:45 Hgb 11.4 g/dL (11.5-15.4) L 03/16/18 22:45 Hct 35.0 % (35.3-44.9) L 03/16/18 22:45 MCV 100.6 fL (83.0-100.0) H 03/16/18 22:45 Plt Count 138 K/mcL (140-400) L 03/16/18 22:45 Chloride 97 mEq/L (98-107) L 03/16/18 22:45 BUN 35 mg/dL (8-23) H 03/16/18 22:45 Creatinine 5.54 mg/dL (0.60-1.20) H 03/16/18 22:45 Est GFR ( Amer) 9 (> 60) L 03/16/18 22:45 Est GFR (Non-Af Amer) 7 (> 60) L 03/16/18 22:45 B-Natriuretic Peptide 2918 pg/mL (Less than 100) H 03/16/18 22:45 - Clinical Findings Intake & Output: Intake & Output 03/16/18 03/17/18 03/17/18 23:59 07:59 15:59 Intake Total 600 / 600 Balance 600 / 600 Weight 70.3 kg 70.3 kg
--- NOTE | 2018-03-17 17:53 | Electrocardiograph Report ---
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
[2018-03-18] MEDS: Ipratropium/Albuterol Neb 3 ML IH PRN ×2 (01:03→03:11)
[2018-03-18] MEDS ORDERED: methylPREDNISolone 125 MG/2 ML VIAL IVP ONE (01:30)
[2018-03-18] MEDS: Ipratropium/Albuterol Neb 3 ML IH SCH ×5 (03:53→19:29)
[2018-03-18] MEDS: Azithromycin 250 MG in D5% in Water 250 ML IVPB SCH (04:17)
[2018-03-18] MEDS ORDERED: Ipratropium/Albuterol Neb 3 ML IH ONE (04:22)
[2018-03-18] MEDS ORDERED: *HR* LORazepam 2 MG/ML VIAL IVP PRN (04:44)
[2018-03-18 04:45] LABS: Basophils % 0.1 %; Hematocrit 33.1 % (35.3-44.9); Hemoglobin 11.1 g/dL (11.5-15.4); Immature Granulocytes % 0.5 % (0-4); Lymphocytes # 0.4 K/mcL (0.6-4.6); Lymphocytes % 5.7 %; Mean Corpuscular HGB Conc 33.5 g/dL (31.6-35.5); Mean Corpuscular Hemoglobin 32.6 pg (28.0-33.3); Mean Corpuscular Volume 97.1 fL (83.0-100.0); Mean Platelet Volume 10.5 fL (9.4-12.4); Monocytes # 0.2 K/mcL (0.0-1.3); Monocytes % 2.4 %; Neutrophils # 6.8 K/mcL (1.6-8.9); Platelet Count 147 K/mcL (140-400); Red Blood Count 3.41 M/mcL (3.82-4.97); Red Cell Distribution Width 13.5 % (11.5-14.5); Segmented Neutrophils % 91.3 %
[2018-03-18 04:58] LABS: Calcium 9.7 mg/dL (8.6-10.3); Magnesium 2.1 mg/dL (1.6-2.6); Potassium 4.1 mEq/L (3.5-5.1)
[2018-03-18] MEDS: Budesonide/Formoterol 160/4.5 MDI IH SCH ×2 (07:41→19:29)
[2018-03-18] MEDS ORDERED: *HR* Midazolam HCl 5 MG/5 ML VIAL IVP ONE (09:24)
[2018-03-18] MEDS ORDERED: *HR* FentaNYL (PF) 100 MCG/2 ML VIAL ONE (09:25)
[2018-03-18] MEDS ORDERED: Lidocaine Viscous Oral Soln 15 ML SOLUTION ONE (09:25)
--- NOTE | 2018-03-18 09:29 | Internal Med Progress Note ---
Date of Encounter: 03/18/18 Time of Encounter: 09:00 - Assessment and plan (1) DVT prophylaxis Current Visit: Yes Status: Acute Assessment and plan: EPCD (2) Atelectasis Current Visit: Yes Status: Chronic Assessment and plan: Due to mucous plugging, patient with known history of copious mucus plugging requiring bronchoscopy several times. Pulmonology has been consulted and will perform a bronchoscopy today. (3) Mucus plugging of bronchi Current Visit: Yes Status: Chronic Assessment and plan: Acute on chronic, evidence of mucous plugging or CAT scan. Patient with copious secretions that are audible on auscultation, and difficulty coughing up. With worsening hypoxia. Pulmonology will perform bronchoscopy and tolerating today. Follow-up bronchioloalveolar lavage reports and culture. (4) Acute exacerbation of chronic obstructive airways disease Current Visit: Yes Status: Acute Assessment and plan: Continue duo nebs, antibiotics, and steroids. For bronchoscopy today. (5) End-stage renal disease Current Visit: Yes Status: Chronic Assessment and plan: Continue dialysis. Nephrology is following, electrolytes are acceptable this a.m (6) Hypertension Current Visit: Yes Status: Chronic Assessment and plan: Continue home medications Qualifiers: Hypertension type: essential hypertension Qualified Code(s): I10 - Essential (primary) hypertension (7) Acute and chronic respiratory failure with hypoxia Current Visit: Yes Status: Acute Assessment and plan: Due to COPDE,bronchiolitis, mucus plugging Continue O2 supplement Bronschopy with toiletting today Continue steroids, antibiotics Follow BAL - Time Spent With Patient Total time spent is greater than 50% in coordination of care (as documented) at patient's floor/unit and/or counseling patient: - Subjective Interval history: The patient was seen at the bedside, in mild respiratory distress, said to have had an eventful night with worsening hypoxia. She is audibly having tons of secretions and difficulty coughing up. I have spoken with pulmonology for possible bronchoscopy today. - Constitutional Vitals: Temp Pulse Resp BP Pulse Ox 97.1 F L 75 17 149/70 96 03/18/18 08:03 03/18/18 08:03 03/18/18 08:03 03/18/18 08:03 03/18/18 08:03 General appearance: Present: mild distress, A&O X 3, pleasant, answers questions appropriately - Head Head exam: Present: atraumatic, normocephalic - Eye Eye exam: Present: PERRL, conjuntiva pink, sclera anicteric Pupils: Present: PERRL - Neck Neck exam general surgery: Present: supple, trachea midline. Absent: lymphadenopathy - Respiratory Additional comments: Diffuse rhonchorous sounds, transmitted breath sounds bilaterally no wheezing. - Cardiovascular Cardiovascular exam: Present: RRR, +S1, +S2. Absent: diastolic murmur, gallop, rubs, systolic murmur - GI/Abdominal GI/Abdominal exam: Present: normal bowel sounds, soft, no peritoneal signs. Absent: distended, tenderness - Extremities Exam Extremities exam: Present: pedal edema - Neurological Exam Neurological exam: Present: alert, CN II-XII intact, oriented X3, no focal deficits. Absent: pronater drift, facial droop, speech deficit - Skin Skin exam: Present: dry, intact Internal Medicine: Result - Labs CBC & Chem 7: 03/18/18 04:30 03/18/18 04:30 Labs: Short CBC 03/18/18 Range/Units 04:30 WBC 7.5 (4.3-11.1) K/mcL Hgb 11.1 L (11.5-15.4) g/dL Hct 33.1 L (35.3-44.9) % Plt Count 147 (140-400) K/mcL Neutrophils # 6.8 (1.6-8.9) K/mcL BMP 03/18/18 04:30 Sodium 135 L Potassium 4.1 Chloride 94 L Carbon Dioxide 27 BUN 34 H Creatinine 4.01 H Glucose 143 H Calcium 9.7 - Impressions Impressions Chest X-Ray 03/18/18 01:30 IMPRESSION: Bibasilar atelectasis or pneumonia, left greater than right. Left pleural effusion. D/ / Tate Finley MD / Tate Finley MD Interpreting Provider: Tate Finley MD - VTE Documentation of Mechanical Device: Intermittent pneumatic compression device Consult Discharge Plan - Plan Referrals: Vladimir Chaidez MD [Primary Care Provider] - 03/20/18 2:00 pm
--- NOTE | 2018-03-18 09:30 | Nephrology Progress Note ---
Date of Encounter: 03/18/18 Time of Encounter: 08:50 - Assessment and Plan (1) ESRD on dialysis Current Visit: Yes Status: Chronic No HD today, keeping MWF schedule. Bronch today. Subjective Interval history: Sitting up in bed, obvious respiratory effort. Mild conversational shortness of breath.States not eaten since last night, told to remain NPO until seen by pulmonary. Spoke with Pulmonary. States to bronch patient this morning. Objective - Vital Signs Vital signs: Vital Signs Temp Pulse Resp BP Pulse Ox 03/18/18 08:03 97.1 F L 75 17 149/70 96 03/18/18 07:41 20 98 03/18/18 04:43 16 90 03/18/18 04:15 97.8 F 81 16 158/71 03/18/18 03:13 20 96 03/18/18 01:05 20 96 03/17/18 23:20 99.5 F 70 16 170/66 96 03/17/18 21:54 16 97 03/17/18 18:12 98.8 F 65 16 145/66 97 03/17/18 15:32 16 94 03/17/18 15:03 99.6 F 73 14 155/69 94 03/17/18 13:30 97.6 F 20 144/69 03/17/18 13:10 137/65 03/17/18 12:55 140/67 03/17/18 12:40 143/69 03/17/18 12:25 140/68 03/17/18 12:10 142/72 03/17/18 11:55 143/72 03/17/18 11:40 139/78 03/17/18 11:25 155/71 03/17/18 11:10 153/73 03/17/18 10:55 147/75 03/17/18 10:40 138/73 03/17/18 10:25 139/72 03/17/18 10:10 97.5 F L 20 140/71 03/17/18 09:27 16 97 Intake and Output 03/17/18 03/18/18 03/18/18 23:59 07:59 15:59 Intake Total 240 / 240 Balance 240 / 240 Intake: Oral 240 / 240 Other: Weight 73.9 kg Patient Weight 03/18/18 23:59 Weight 73.9 kg - General Appearance General appearance: Present: well-developed, well-nourished, appears started age EENT: Present: mucous membranes moist Neck: Present: no JVD Respiratory: Present: wheezing, rhonchi Cardiology: Present: edema, regular rate, regular rhythm Additional Comments: 1+ LE, shriveled skin Dialysis Vascular Access: Arteriovenous Fistula Gastrointestinal: Present: normoactive bowel sounds, no tenderness Integumentary: Present: warm and dry Neurologic: Present: alert and oriented x3 - Lab 03/18/18 04:30 03/18/18 04:30 Most recent lab results Calcium 9.7 mg/dL (8.6-10.3) 03/18/18 04:30 Magnesium 2.1 mg/dL (1.6-2.6) 03/18/18 04:30 - VTE Documentation of Mechanical Device: Intermittent pneumatic compression device Consult Discharge Plan - Plan Referrals: Vladiimr Chaidez MD [Primary Care Provider] - 03/20/18 2:00 pm
[2018-03-18] MEDS ORDERED: Albuterol 2.5 MG/3 ML NEBULIZER IH ONE (09:34)
[2018-03-18] MEDS ORDERED: Tetracaine/Benzocaine/Butamben 200MG/SPRAY (100SPY/BOT) MM ONE (09:34)
[2018-03-18] MEDS ORDERED: *HR* Midazolam HCl 2 MG/2 ML VIAL IVP ONE (09:34)
[2018-03-18] MEDS ORDERED: *HR* FentaNYL (PF) 100 MCG/2 ML VIAL IVP ONE (09:34)
[2018-03-18] MEDS ORDERED: *HR* EPINEPHrine 1 MG/10 ML SYRINGE INTRATRACH PRN (09:34)
[2018-03-18] MEDS ORDERED: Lidocaine Viscous Oral Soln 15 ML SOLUTION MM ONE (09:34)
--- NOTE | 2018-03-18 09:36 | Pre-Sedation Evaluation ---
Pre-sedation evaluation - Pre-sedation checklist Date of procedure: 03/18/18 Procedure: Bronchoscopy Recent Vitals: Last Vital Signs Temp 97.1 F L 03/18/18 08:03 Pulse 75 03/18/18 08:03 Resp 17 03/18/18 08:03 BP 149/70 03/18/18 08:03 Pulse Ox 96 03/18/18 08:03 H&P (including ROS) documented in medical record: Yes Previous reaction to sedatives/anesthetics: No Dietary Status: NPO 6 hours prior to procedure Dentition: dentures removed Possible difficult airway: No ASA Classification *see protocol: CLASS III-Severe systemic disease Plan of Care: Pt appropriate candidate for procedure/moderate/conscious sedation , Risks/benefits of procedure/sedation discussed w/ patient/family
[2018-03-18] MEDS: 0.9 % Sodium Chloride 1,000 ML IVC SCH (09:58)
--- NOTE | 2018-03-18 10:15 | Pulmonology Progress Note ---
Date of Encounter: 03/18/18 Time of Encounter: 08:50 Assessment and Plan (1) Acute respiratory distress Current Visit: No Status: Acute This is most likely from her underlying lung disease and she is prone to have mucous plugs in the airway and it has been difficult for her to clear her airway and since she is in respiratory distress and have explained to her about bronchoscopy and discussed with primary team. She agreed to have it done and we will proceed to have airway toilet and complaining mucous plugs for her and patient is aware of all the risks, alternatives and benefits of the procedure. (2) Atelectasis Current Visit: Yes Status: Chronic (3) Hypoxia Current Visit: No Status: Acute (4) Mucus plugging of bronchi Current Visit: Yes Status: Chronic Subjective Principal diagnosis: Dyspnea Interval history: Patient started to have significant respiratory distress overnight. Objective PUL Vital signs: Last Vital Signs Temp 97.5 F L 03/18/18 09:34 Pulse 88 03/18/18 10:00 Resp 18 03/18/18 10:00 BP 155/68 03/18/18 10:00 Pulse Ox 96 03/18/18 10:00 General appearance: appears uncomfortable Eyes: nonicteric ENT: oropharynx dry Neck: supple Effort: mildly labored Auscultation: bilateral: rhonchi Percussion: bilateral: not dull Cardiovascular: regular rate and rhythm, murmur noted Gastrointestinal: normoactive bowel sounds, non-distended Extremities: edema normal mental status, non-focal exam mood appropriate Results - Laboratory Findings CBC and BMP: 03/18/18 04:30 03/18/18 04:30 Abnormal lab findings: Abnormal lab results RBC 3.41 M/mcL (3.82-4.97) L 03/18/18 04:30 Hgb 11.1 g/dL (11.5-15.4) L 03/18/18 04:30 Hct 33.1 % (35.3-44.9) L 03/18/18 04:30 Lymphocytes # 0.4 K/mcL (0.6-4.6) L 03/18/18 04:30 Sodium 135 mEq/L (136-145) L 03/18/18 04:30 Chloride 94 mEq/L (98-107) L 03/18/18 04:30 BUN 34 mg/dL (8-23) H 03/18/18 04:30 Creatinine 4.01 mg/dL (0.60-1.20) H 03/18/18 04:30 Est GFR ( Amer) 13 (> 60) L 03/18/18 04:30 Est GFR (Non-Af Amer) 11 (> 60) L 03/18/18 04:30 Glucose 143 mg/dL (70-105) H 03/18/18 04:30 B-Natriuretic Peptide 2918 pg/mL (Less than 100) H 03/16/18 22:45 - Clinical Findings Intake & Output: Intake & Output 03/17/18 03/18/18 03/18/18 23:59 07:59 15:59 Intake Total 240 / 240 100 / 100 Balance 240 / 240 100 / 100 Weight 73.9 kg - VTE Documentation of Mechanical Device: Intermittent pneumatic compression device Consult Discharge Plan - Plan Referrals: Vladimir Chaidez MD [Primary Care Provider] - 03/20/18 2:00 pm
[2018-03-18 11:32] LABS: Source of Body Fluid LLL BAL
[2018-03-18 11:58] LABS: Appearance of Body Fluid Slightly Hazy (Clear)
[2018-03-18 11:59] LABS: Volume of Body Fluid 19 mL
[2018-03-18] MEDS: Metoprolol XL (24 HR) Succ 50 MG TAB.ER.24H PO SCH (13:52)
[2018-03-18] MEDS: predniSONE 20 MG TABLET PO SCH (13:52)
[2018-03-19] MEDS: Ipratropium/Albuterol Neb 3 ML IH SCH ×4 (00:48→11:33)
[2018-03-19] MEDS: 0.9 % Sodium Chloride 1,000 ML IVC SCH (04:21)
[2018-03-19] MEDS: Azithromycin 250 MG in D5% in Water 250 ML IVPB SCH (05:37)
--- NOTE | 2018-03-19 08:32 | Nephrology Progress Note ---
Date of Encounter: 03/19/18 Time of Encounter: 08:00 - Assessment and Plan (1) ESRD on dialysis Current Visit: Yes Status: Chronic No HD today, keeping MWF schedule. Subjective Principal diagnosis: Dyspnea Interval history: Sitting up in bed, S/P bronch yesterday. States breathing much easier. Objective - Vital Signs Vital signs: Vital Signs Temp Pulse Resp BP Pulse Ox 03/19/18 08:04 98.2 F 65 18 174/72 96 03/19/18 03:36 98.3 F 70 12 160/75 100 03/19/18 00:50 16 99 03/18/18 23:02 98.4 F 84 16 168/73 99 03/18/18 19:30 16 97 03/18/18 18:15 99.3 F 76 16 156/76 97 03/18/18 16:56 98.3 F 84 17 158/69 99 03/18/18 15:35 16 100 03/18/18 12:13 97.9 F 79 18 145/63 97 03/18/18 11:19 16 98 03/18/18 10:16 98.6 F 88 18 153/74 96 03/18/18 10:00 88 18 155/68 96 03/18/18 09:55 89 18 158/69 96 03/18/18 09:50 100 20 212/91 95 03/18/18 09:45 96 20 160/84 88 03/18/18 09:40 83 20 144/64 92 03/18/18 09:34 97.5 F L 81 20 152/66 90 Intake and Output 03/18/18 03/19/18 03/19/18 23:59 07:59 15:59 Other: Weight 74.3 kg Patient Weight 03/19/18 23:59 Weight 74.3 kg - General Appearance General appearance: Present: well-developed, well-nourished, appears started age EENT: Present: mucous membranes moist Neck: Present: no JVD Respiratory: Present: clear Additional Comments: diminished Cardiology: Present: edema, regular rate, regular rhythm Additional Comments: mild, shriveled skin. Dialysis Vascular Access: Arteriovenous Fistula thrill: Yes bruit: Yes Gastrointestinal: Present: normoactive bowel sounds, no tenderness Integumentary: Present: warm and dry Neurologic: Present: alert and oriented x3 - Lab 03/18/18 04:30 03/18/18 04:30 Most recent lab results Calcium 9.7 mg/dL (8.6-10.3) 03/18/18 04:30 Magnesium 2.1 mg/dL (1.6-2.6) 03/18/18 04:30 - VTE Documentation of Mechanical Device: Graduated compression elastic hosiery Consult Discharge Plan - Plan Referrals: Vladimir Chaidez MD [Primary Care Provider] - 03/20/18 2:00 pm
[2018-03-19] MEDS: Metoprolol XL (24 HR) Succ 50 MG TAB.ER.24H PO SCH (10:06)
[2018-03-19] MEDS: predniSONE 20 MG TABLET PO SCH (10:06)
[2018-03-19 10:39] LABS: Basophils % 0.2 %; Hematocrit 31.3 % (35.3-44.9); Hemoglobin 10.2 g/dL (11.5-15.4); Immature Granulocytes % 0.8 % (0-4); Lymphocytes # 0.7 K/mcL (0.6-4.6); Lymphocytes % 14.3 %; Mean Corpuscular HGB Conc 32.6 g/dL (31.6-35.5); Mean Corpuscular Hemoglobin 32.4 pg (28.0-33.3); Mean Corpuscular Volume 99.4 fL (83.0-100.0); Mean Platelet Volume 10.5 fL (9.4-12.4); Monocytes # 0.4 K/mcL (0.0-1.3); Monocytes % 7.8 %; Neutrophils # 3.8 K/mcL (1.6-8.9); Platelet Count 125 K/mcL (140-400); Red Blood Count 3.15 M/mcL (3.82-4.97); Red Cell Distribution Width 13.6 % (11.5-14.5); Segmented Neutrophils % 76.9 %
[2018-03-19 10:51] LABS: Calcium 8.9 mg/dL (8.6-10.3); Potassium 4.5 mEq/L (3.5-5.1)
[2018-03-19 11:23] VITALS: BP 173/80
[2018-03-19] MEDS: Budesonide/Formoterol 160/4.5 MDI IH SCH (11:33)
--- NOTE | 2018-03-19 14:06 | Discharge Summary ---
- NOTES TO OUTPATIENT PROVIDER Notes to Outpatient Provider: Follow-up with pulmonology as an outpatient Orders not resulted at time of discharge: Pending orders 03/18/18 09:55 Culture,Respiratory [RM] Routine Gram Stain [RM] Routine Date of Encounter: 03/19/18 Time of Encounter: 11:00 - Discharge Diagnosis (1) Atelectasis Priority: Secondary Status: Chronic (2) Mucus plugging of bronchi Priority: Secondary Status: Chronic (3) Acute and chronic respiratory failure with hypoxia Priority: Primary Status: Acute (4) Acute exacerbation of chronic obstructive airways disease Priority: Primary Status: Acute (5) End-stage renal disease Priority: Secondary Status: Chronic (6) Hypertension Priority: Secondary Status: Chronic Qualifiers: Hypertension type: essential hypertension Qualified Code(s): I10 - Essential (primary) hypertension Hospital course: Patient is a 77-year-old female with past medical history significant for atrial fibrillation, hypertension, hyperlipidemia, end-stage renal disease on hemodialysis and COPD who presented to the ER on 03/17/18 due to shortness of breath. Patient has increased the shortness of breath for 2 days and even worse yesterday. Patient has nonproductive cough. In the emergency room, CTA was done and patient was found left lower lobe atelectasis and suspected mucous plug. Patient was also found possible bronchiolitis. Patient was admitted for further management. During patients hospital stay pulmonology was consulted with recommendations for bronchoscopy due to patients history of copious mucus plugging. Bronchoscopy was done and cultures sent. Patient was able to be weaned off supplemental oxygenation will be discharged home to complete a 5 day course of prednisone and azithromycin. - Time Spent with Patient Total time spent providing and/or coordinating discharge services: Less than 30 minutes - Discharge Medications Prescriptions: Azithromycin [Zithromax] 250 mg IVPB Q24H 5 Days #10 vial predniSONE [PredniSONE] 40 mg PO DAILY 5 Days #10 tablet Home Medications: Albuterol Sulfate [Ventolin Hfa] 2 puff IH Q4H PRN 10/12/16 [History] Aspirin 81 mg PO DAILY 10/12/16 [History] Atorvastatin [Lipitor] 40 mg PO HS 10/12/16 [History] Budesonide/Formoterol 160/4.5 [Symbicort 160/4.5] 2 puff IH BIDR 10/12/16 [ History] Furosemide [Lasix] 20 mg PO QPM 10/12/16 [History] Furosemide [Lasix] 40 mg PO QAM 10/12/16 [History] Metoprolol XL (24 HR) Succ [Toprol Xl] 50 mg PO DAILY 01/14/17 [History] Loratadine [Claritin] 10 mg PO DAILY 03/11/17 [History] Sevelamer [Renvela] 1,600 mg PO TIDWM 03/11/17 [History] Losartan [Cozaar] 50 mg PO BID #60 tablet 03/14/17 [Rx] Pregabalin [Lyrica] 50 mg PO BID 11/22/17 [History] B Complex W-C No.20/Folic Acid [Virt-Caps Softgel] 1 mg PO DAILY 01/01/18 [ History] Ipratropium/Albuterol Neb [Duoneb] 3 ml IH Q6HR 02/15/18 [History] Allopurinol [Zyloprim 100 MG] 100 mg PO DAILY 03/17/18 [History] Hydralazine HCl 50 mg PO TID 03/17/18 [History] Levothyroxine Sodium [Levoxyl] 50 mcg PO DAILY 03/17/18 [History] amLODIPine [Norvasc] 5 mg PO BID 03/17/18 [History] Azithromycin [Zithromax] 250 mg IVPB Q24H 5 Days #10 vial 03/19/18 [Rx] predniSONE [PredniSONE] 40 mg PO DAILY 5 Days #10 tablet 03/19/18 [Rx] Allergies/Adverse Reactions: 3 Allergy/AdvReac Type Severity Reaction Status Date / Time codeine Allergy Rash Verified 03/16/18 21:48 gabapentin Allergy Itching Verified 03/16/18 21:48 Date of admission: 03/17/18 02:50 Primary care physician: Vladimir Chaidez MD Consults: 03/17/18 05:00 Consult to Nephrology [CONS] Routine Consulting Provider: [facility] Reason for Consult: ESRD on HD Call Completed: Yes Consult to Pulmonology [CONS] Routine Consulting Provider: [facility] Reason for Consult: Suspect mucus plug Call Completed: No 03/17/18 10:00 Consult to Dialysis [CONS] ONCE - Constitutional Vitals: Temp Pulse Resp BP Pulse Ox 98.1 F 70 16 173/80 97 03/19/18 11:15 03/19/18 11:15 03/19/18 11:33 03/19/18 11:15 03/19/18 11:33 General appearance: Present: mild distress, A&O X 3, pleasant, no acute distress , answers questions appropriately - Respiratory Respiratory exam: Present: CTAB. Absent: accessory muscle use, rales, rhonchi, wheezes - Cardiovascular Cardiovascular exam: Present: RRR, +S1, +S2. Absent: diastolic murmur, gallop, rubs, systolic murmur - Patient Status Disposition: Home, Self-Care Condition: Fair - Discharge Instructions Instructions: Acute Respiratory Distress Syndrome (DC) Follow Up With: Vladimir Chaidez MD [Primary Care Provider] - 03/20/18 2:00 pm - VTE Documentation of Mechanical Device: Intermittent pneumatic compression device
== END 2018-03-19 14:54 | disposition home or self-care (01) ==
LOC: 3BNU 21:42 → EMEROO 21:42 → SUATTDRO 03-17 02:50 → 3BNU 03-17 03:15
PROVIDERS: ADMIT Internal Medicine; ATTEND Hospitalist

== ENCOUNTER 2018-04-17 17:35 | Inpatient (IN) ==
[2018-04-17] MEDS ORDERED: Ipratropium/Albuterol Neb 3 ML IH ONE (17:53)
[2018-04-17] MEDS ORDERED: levoFLOXacin 750 MG TABLET PO ONE (17:53)
[2018-04-17] MEDS ORDERED: methylPREDNISolone 125 MG/2 ML VIAL IVP ONE (17:55)
--- NOTE | 2018-04-17 18:01 | Emergency Department Note ---
Disposition Clinical Impression: Acute exacerbation of chronic obstructive pulmonary disease (COPD), Pleural effusion on right, End stage renal disease on dialysis Disposition: Admitted As Inpatient Condition: Undetermined Referrals: Vladimir Chaidez MD [Primary Care Provider] - Forms: ED Satisfaction Letter Time of Disposition: 19:39 SOB HPI - General Chief Complaint: ED Shortness of Breath/Dyspnea Stated Complaint: LAKISHA Time Seen by Provider: 04/17/18 17:48 Source: patient Mode of arrival: wheelchair Limitations: no limitations Nursing Notes Reviewed: Yes Vital Signs Reviewed: Yes - History of Present Illness 77-year-old female with history of end-stage renal disease on dialysis, COPD, arrives to the emergency department with complaint of shortness of breath that started this morning. The patient received dialysis this morning. The patient states that she felt short of breath prior to dialysis. The patient denies any fevers, chills associated with it. She is taking all of her medications as prescribed. The patient arrives to the emergency department in respiratory distress with an O2 saturation of 80% on room air. The patient has a past history of being admitted for respiratory failure in the past. Patient denies any chest pain at this time. She denies any unilateral leg swelling, hemoptysis. The patient did receive dialysis today. She is on nonrebreather in the room when the patient was seen in triage with an O2 saturation of 92%. - Related Data Home Medications Medication Instructions Recorded Confirmed Albuterol Sulfate [Ventolin Hfa] 2 puff IH Q4H PRN 10/12/16 04/17/18 Aspirin 81 mg PO DAILY 10/12/16 04/17/18 Atorvastatin [Lipitor] 40 mg PO HS 10/12/16 04/17/18 Budesonide/Formoterol 160/4.5 2 puff IH BIDR 10/12/16 04/17/18 [Symbicort 160/4.5] Furosemide [Lasix] 20 mg PO QPM 10/12/16 04/17/18 Furosemide [Lasix] 40 mg PO QAM 10/12/16 04/17/18 Metoprolol XL (24 HR) Succ [Toprol 50 mg PO DAILY 01/14/17 04/17/18 Xl] Loratadine [Claritin] 10 mg PO DAILY 03/11/17 04/17/18 Sevelamer [Renvela] 1,600 mg PO TIDWM 03/11/17 04/17/18 Pregabalin [Lyrica] 50 mg PO BID 11/22/17 04/17/18 B Complex W-C No.20/Folic Acid 1 mg PO DAILY 01/01/18 04/17/18 [Virt-Caps Softgel] Ipratropium/Albuterol Neb [Duoneb] 3 ml IH Q6HR 02/15/18 04/17/18 Allopurinol [Zyloprim 100 MG] 100 mg PO DAILY 03/17/18 04/17/18 Hydralazine HCl 50 mg PO TID 03/17/18 04/17/18 Levothyroxine Sodium [Levoxyl] 50 mcg PO DAILY 03/17/18 04/17/18 amLODIPine [Norvasc] 5 mg PO BID 03/17/18 04/17/18 Acetylcysteine 600 mg PO BID 04/17/18 04/17/18 [D-Zbahav-l-Cysteine] Previous Rx's Medication Instructions Recorded Losartan [Cozaar] 50 mg PO BID #60 tablet 03/14/17 Allergies Allergy/AdvReac Type Severity Reaction Status Date / Time codeine Allergy Rash Verified 03/16/18 21:48 gabapentin Allergy Itching Verified 03/16/18 21:48 All systems ED: reviewed and negative except as stated. Constitutional: Reports: weakness. Denies: fever, chills ENT ED: Denies: congestion Cardiovascular: Reports: dyspnea on exertion. Denies: chest pain, orthopnea, edema, syncope Respiratory: Reports: cough, dyspnea, wheezes, sputum production. Denies: hemoptysis Gastrointestinal: Denies: abdominal pain, nausea, vomiting Genitourinary: Denies: urgency, dysuria Musculoskeletal: Denies: back pain, neck pain Integumentary: Denies: rash Neurological: Reports: weakness. Denies: headache Past Medical History - Past Medical History Attestation: Yes The following information was validated with the patient. Source: patient, old records reviewed, obtained from family Medical history: Reports: asthma, atrial fibrillation, COPD, DVT, dialysis, hyperlipidemia, hypertension, osteoporosis, renal disease Surgical history: Reports: other Psychiatric history: Reports: no psych history - Social History Smoking Status: Unknown if ever smoked Smokeless Tobacco Status: No Alcohol use: Reports: none Drug use: Reports: none Physical Exam - General Limitations: no limitations General appearance: alert, in distress (Moderate respiratory) - Head Head exam: atraumatic, normocephalic, normal inspection - Eye Eye exam: Present: normal appearance, PERRL, EOMI - ENT ENT exam: normal exam, normal oropharynx, mucous membranes moist - Neck Neck exam: Present: normal inspection - Chest Chest inspection: Present: normal inspection, symmetric chest wall rise - Respiratory Respiratory exam: Present: respiratory distress (Moderate), wheezes. Absent: accessory muscle use - Cardiovascular Cardiovascular exam: Present: regular rate, normal rhythm, normal heart sounds - Abdominal Exam Abdominal exam: Present: soft, Non-Tender. Absent: tenderness, distention, guarding, rebound, rigidity - Extremities Exam Extremities exam: Present: normal inspection, full ROM. Absent: tenderness, pedal edema - Neurological Exam Neurological exam: Present: alert, oriented X3 - Skin Skin exam: Present: warm, dry, intact, normal color Course Vital Signs Temperature 98.2 F 04/17/18 17:36 Pulse Rate 77 04/17/18 17:36 Respiratory Rate 26 04/17/18 17:36 Blood Pressure 149/79 04/17/18 17:36 O2 Sat by Pulse Oximetry 80 04/17/18 17:36 Temperature 98.2 F 04/17/18 17:36 Pulse Rate 77 04/17/18 17:36 Respiratory Rate 26 04/17/18 17:36 Blood Pressure 149/79 04/17/18 17:36 O2 Sat by Pulse Oximetry 80 04/17/18 17:36 Oxygen Delivery Oxygen Delivery Room Air Shortness of Breath/Dyspnea - [facility] Narrative Medical decision making narrative: Patient's workup in the emergency department demonstrates findings concerning for a right lower lobe pulmonary effusion. The patient was started on vancomycin, Rocephin and levofloxacin for concern for possible pneumonia. Patient's lab work demonstrates a low white blood cell count. No elevation in lactic acid. The patient is not in septic shock at this time. The patient received dialysis today. The patient was also administered 3 duo nebs as well as Solu-Medrol and placed on BiPAP. She is resting comfortably on BiPAP at this time. She is speaking full sentences. The patient will be admitted to the hospital at this time for further workup and care. Patient made aware and agrees to plan. No further questions or concerns noted at this time. Accepted by Dr. Gutierrez. - Medical Records Medical records reviewed: Yes I reviewed the patient's medical records. - Lab Data Lab results reviewed: Yes I reviewed the patient's lab results. Result diagrams: 04/17/18 18:23 04/17/18 18:23 Lab Results 04/17/18 04/17/18 04/17/18 Range/Units 18:23 18:23 18:23 WBC 4.1 L (4.3-11.1) K/mcL RBC 3.46 L (3.82-4.97) M/mcL Hgb 11.2 L (11.5-15.4) g/dL Hct 32.9 L (35.3-44.9) % MCV 95.1 (83.0-100.0) fL MCH 32.4 (28.0-33.3) pg MCHC 34.0 (31.6-35.5) g/dL RDW 13.6 (11.5-14.5) % Plt Count 160 (140-400) K/mcL MPV 10.5 (9.4-12.4) fL Immature Gran % 0.2 (0-4) % Seg Neutrophils % 67.5 % Lymphocytes % 19.4 % Monocytes % 10.9 % Eosinophils % 1.5 % Basophils % 0.5 % Neutrophils # 2.8 (1.6-8.9) K/mcL Lymphocytes # 0.8 (0.6-4.6) K/mcL Monocytes # 0.5 (0.0-1.3) K/mcL Eosinophils # 0.1 (0.0-0.6) K/mcL Basophils # 0.0 (0.0-0.2) K/mcL Sodium 138 (136-145) mEq/L Potassium 4.3 (3.5-5.1) mEq/L Chloride 97 L (98-107) mEq/L Carbon Dioxide 27 (23-29) mEq/L BUN 21 (8-23) mg/dL Creatinine 4.06 H (0.60-1.20) mg/dL Est GFR ( Amer) 13 L (> 60) Est GFR (Non-Af Amer) 11 L (> 60) BUN/Creatinine Ratio 5 L (6-26) Glucose 93 (70-105) mg/dL Calculated Osmolality 289 (280-300) Lactic Acid 1.1 (0.5-2.2) mmol/L Calcium 10.3 (8.6-10.3) mg/dL Troponin I 0.03 (< 0.04) ng/mL - Radiology Data Radiology results reviewed: Yes I reviewed the patient's radiology results. - EKG Data EKG attestation: Yes I reviewed and interpreted this EKG. EKG results narrative: Heart rate 77 beats for minute. Normal sinus rhythm. A numerous PVCs. No ST elevation or ST depression noted. EKG with nonspecific changes noted from EKG on 03/16/2018.
--- NOTE | 2018-04-17 18:20 | Emergency Department Note ---
Disposition Clinical Impression: Acute exacerbation of chronic obstructive pulmonary disease (COPD) Disposition: Admitted As Inpatient Referrals: Vladimir Chaidez MD [Primary Care Provider] - Forms: ED Satisfaction Letter General Adult HPI - General Chief complaint: ED Shortness of Breath/Dyspnea Stated complaint: LAKISHA Time Seen by Provider: 04/17/18 17:48 Source: patient Mode of arrival: wheelchair Limitations: no limitations - History of Present Illness Pain Scale: 0 - Related Data Home Medications Medication Instructions Recorded Confirmed Albuterol Sulfate [Ventolin Hfa] 2 puff IH Q4H PRN 10/12/16 03/17/18 Aspirin 81 mg PO DAILY 10/12/16 03/17/18 Atorvastatin [Lipitor] 40 mg PO HS 10/12/16 03/17/18 Budesonide/Formoterol 160/4.5 2 puff IH BIDR 10/12/16 03/17/18 [Symbicort 160/4.5] Furosemide [Lasix] 20 mg PO QPM 10/12/16 03/17/18 Furosemide [Lasix] 40 mg PO QAM 10/12/16 03/17/18 Metoprolol XL (24 HR) Succ [Toprol 50 mg PO DAILY 01/14/17 03/17/18 Xl] Loratadine [Claritin] 10 mg PO DAILY 03/11/17 03/17/18 Sevelamer [Renvela] 1,600 mg PO TIDWM 03/11/17 03/17/18 Pregabalin [Lyrica] 50 mg PO BID 11/22/17 03/17/18 B Complex W-C No.20/Folic Acid 1 mg PO DAILY 01/01/18 03/17/18 [Virt-Caps Softgel] Ipratropium/Albuterol Neb [Duoneb] 3 ml IH Q6HR 02/15/18 03/17/18 Allopurinol [Zyloprim 100 MG] 100 mg PO DAILY 03/17/18 03/17/18 Hydralazine HCl 50 mg PO TID 03/17/18 03/17/18 Levothyroxine Sodium [Levoxyl] 50 mcg PO DAILY 03/17/18 03/17/18 amLODIPine [Norvasc] 5 mg PO BID 03/17/18 03/17/18 Previous Rx's Medication Instructions Recorded Losartan [Cozaar] 50 mg PO BID #60 tablet 03/14/17 Azithromycin [Zithromax] 250 mg IVPB Q24H 5 Days #10 vial 03/19/18 predniSONE [PredniSONE] 40 mg PO DAILY 5 Days #10 tablet 03/19/18 Allergies Allergy/AdvReac Type Severity Reaction Status Date / Time codeine Allergy Rash Verified 03/16/18 21:48 gabapentin Allergy Itching Verified 03/16/18 21:48 Constitutional: Reports: weakness. Denies: fever, chills ENT ED: Denies: congestion Cardiovascular: Reports: dyspnea on exertion. Denies: chest pain, orthopnea, edema, syncope Respiratory: Reports: cough, dyspnea, wheezes, sputum production. Denies: hemoptysis Gastrointestinal: Denies: abdominal pain, nausea, vomiting Genitourinary: Denies: urgency, dysuria Musculoskeletal: Denies: back pain, neck pain Integumentary: Denies: rash Neurological: Reports: weakness. Denies: headache Past Medical History - Past Medical History Medical history: Reports: asthma, atrial fibrillation, COPD, DVT, dialysis, hyperlipidemia, hypertension, osteoporosis, renal disease Surgical history: Reports: other Psychiatric history: Reports: no psych history - Social History Smoking Status: Unknown if ever smoked Smokeless Tobacco Status: No Alcohol use: Reports: none Drug use: Reports: none Physical Exam - General Limitations: no limitations General appearance: alert, in distress (Moderate respiratory) Course Vital Signs Temperature 98.2 F 04/17/18 17:36 Pulse Rate 77 04/17/18 17:36 Respiratory Rate 26 04/17/18 17:36 Blood Pressure 149/79 04/17/18 17:36 O2 Sat by Pulse Oximetry 80 04/17/18 17:36 Temperature 98.2 F 04/17/18 17:36 Pulse Rate 77 04/17/18 17:36 Respiratory Rate 26 04/17/18 17:36 Blood Pressure 149/79 04/17/18 17:36 O2 Sat by Pulse Oximetry 80 04/17/18 17:36 Oxygen Delivery Oxygen Delivery Room Air Attestation Statement - Attestation Attestation: I examined this patient and my medical decision-making was reviewed with the Resident Physician. I agree with the documented findings, disposition and treatment plan as described except to the extent set forth below. 77 year old antonietta ríos to the ED with complaints of dyspnea and states that she was a dialysis and has a history of COPD and typically has excerbations after [facility] and this time around was down to 80%. Hong states that she has been having increased difficulty wiht exertion due to dyspnea and this si how she presents for COPDE. Patinet was 80% on presentation and is not 96% on NRB, and will be placed on bipap with cardiopulmonary workup and admitssin to hospital after rule out pnuemoina.
[2018-04-17 18:45] LABS: Basophils % 0.5 %; Eosinophils # 0.1 K/mcL (0.0-0.6); Eosinophils % 1.5 %; Hematocrit 32.9 % (35.3-44.9); Hemoglobin 11.2 g/dL (11.5-15.4); Immature Granulocytes % 0.2 % (0-4); Lymphocytes # 0.8 K/mcL (0.6-4.6); Lymphocytes % 19.4 %; Mean Corpuscular Hemoglobin 32.4 pg (28.0-33.3); Mean Corpuscular Volume 95.1 fL (83.0-100.0); Mean Platelet Volume 10.5 fL (9.4-12.4); Monocytes # 0.5 K/mcL (0.0-1.3); Monocytes % 10.9 %; Neutrophils # 2.8 K/mcL (1.6-8.9); Platelet Count 160 K/mcL (140-400); Red Blood Count 3.46 M/mcL (3.82-4.97); Red Cell Distribution Width 13.6 % (11.5-14.5); Segmented Neutrophils % 67.5 %
[2018-04-17 19:07] LABS: Troponin I 0.03 ng/mL (< 0.04)
[2018-04-17 19:09] LABS: Calcium 10.3 mg/dL (8.6-10.3); Potassium 4.3 mEq/L (3.5-5.1)
[2018-04-17] MEDS ORDERED: cefTRIAXone 1,000 MG in Water for inj. (sterile) 20 ML 10 ML IVP ONE (19:11)
--- NOTE | 2018-04-17 19:51 | Internal Med History&Physical ---
Date of Encounter: 04/17/18 Time of Encounter: 19:45 Internal Medicine - H&P: HPI Chief complaint: Productive cough with yellow sputum Admitted From: Emergency Dept Plans for Post Hospital Care: Transfer [employer] Care History of present illness: Ms. Carmona is a 77 year old female with past medical history of end-stage renal disease, COPD. patient stated that she has history of chronic cough, she stated over last 4 days that her cough has been getting worse with having a light yellow phlegm associated with shortness of breath and wheeze the progressive dyspnea on exertion. Patient denies any fever or chills, patient denies any palpitation, patient denies any chest pain, patient oxygen saturation was 80% on room air, when she was in acute respiratory distress. Patient has end-stage renal disease received her dialysis today, patient is currently on BiPAP she is feeling better Past Med Surg Social Fam HX - Past Medical History Medical history: asthma, atrial fibrillation, COPD, DVT, dialysis, hyperlipidemia, hypertension, osteoporosis, renal disease Additional medical history: broken right foot (2001), right arm fistula Psychiatric history: no psych history - Past Surgical History Surgical History: other Additional surgical history: back surgery L4-L5, , left nephrectomy for donation , cataract removal, CTR-left, A-V fistula placed in left arm. - Social History Smoking Status: Unknown if ever smoked Smokeless Tobacco Status: No Alcohol use: none Drug use: none - Family History Mother Living Status: Hx Family Cardiac Disorders: No Hx Family Respiratory Disorders: No Hx Family Cancer: Yes (colon) Hx Family GI Disorders: No Hx Family Endocrine Disorder: Yes (dm) Hx Family Neuromuscular Disorders: No Hx Family Neurologic Disorders: No Hx Family HEENT Disorders: No Hx Family Autoimmune Disorders: No Internal Medicine - H&P: Meds Albuterol Sulfate [Ventolin Hfa] 2 puff IH Q4H PRN 10/12/16 [History] Aspirin 81 mg PO DAILY 10/12/16 [History] Atorvastatin [Lipitor] 40 mg PO HS 10/12/16 [History] Budesonide/Formoterol 160/4.5 [Symbicort 160/4.5] 2 puff IH BIDR 10/12/16 [ History] Furosemide [Lasix] 20 mg PO QPM 10/12/16 [History] Furosemide [Lasix] 40 mg PO QAM 10/12/16 [History] Metoprolol XL (24 HR) Succ [Toprol Xl] 50 mg PO DAILY 01/14/17 [History] Loratadine [Claritin] 10 mg PO DAILY 03/11/17 [History] Sevelamer [Renvela] 1,600 mg PO TIDWM 03/11/17 [History] Losartan [Cozaar] 50 mg PO BID #60 tablet 03/14/17 [Rx] Pregabalin [Lyrica] 50 mg PO BID 11/22/17 [History] B Complex W-C No.20/Folic Acid [Virt-Caps Softgel] 1 mg PO DAILY 01/01/18 [ History] Ipratropium/Albuterol Neb [Duoneb] 3 ml IH Q6HR 02/15/18 [History] Allopurinol [Zyloprim 100 MG] 100 mg PO DAILY 03/17/18 [History] Hydralazine HCl 50 mg PO TID 03/17/18 [History] Levothyroxine Sodium [Levoxyl] 50 mcg PO DAILY 03/17/18 [History] amLODIPine [Norvasc] 5 mg PO BID 03/17/18 [History] Acetylcysteine [D-Pspkjz-e-Cysteine] 600 mg PO BID 04/17/18 [History] 3 Allergy/AdvReac Type Severity Reaction Status Date / Time codeine Allergy Rash Verified 03/16/18 21:48 gabapentin Allergy Itching Verified 03/16/18 21:48 All Systems PM: A 10-system review of systems was performed and is negative for pertinent findings except as documented above in the HPI. - Constitutional Vitals: Temp Pulse Resp BP Pulse Ox 98.2 F 77 26 149/79 80 04/17/18 17:53 04/17/18 17:53 04/17/18 17:53 04/17/18 17:53 04/17/18 17:53 General appearance: Present: A&O X 3 - Head Head exam: Present: atraumatic, normocephalic - Neck Neck exam general surgery: Present: supple, trachea midline. Absent: lymphadenopathy - Respiratory Respiratory exam: Present: accessory muscle use, decreased breath sounds, prolonged expiratory phase, rales, wheezes. Absent: rhonchi Additional comments: Crackles bilateral lung bases expiratory wheezing - Cardiovascular Cardiovascular exam: Present: RRR, +S1, +S2. Absent: diastolic murmur, gallop, rubs, systolic murmur - GI/Abdominal GI/Abdominal exam: Present: normal bowel sounds, soft, no peritoneal signs. Absent: distended, tenderness - Extremities Exam Extremities exam: Present: pedal edema (Lower extremity edema +2-3), warm, radial pulses palpable and symmetrical. Absent: calf tenderness, cyanotic - Neurological Exam Neurological exam: Present: CN II-XII intact, oriented X3, no focal deficits. Absent: pronater drift, facial droop, speech deficit - Skin Skin exam: Present: dry, intact Internal Med - H&P Results - Labs CBC & Chem 7: 04/17/18 18:23 04/17/18 18:23 Labs: Short CBC 04/17/18 Range/Units 18:23 WBC 4.1 L (4.3-11.1) K/mcL Hgb 11.2 L (11.5-15.4) g/dL Hct 32.9 L (35.3-44.9) % Plt Count 160 (140-400) K/mcL Neutrophils # 2.8 (1.6-8.9) K/mcL BMP 04/17/18 18:23 Sodium 138 Potassium 4.3 Chloride 97 L Carbon Dioxide 27 BUN 21 Creatinine 4.06 H Glucose 93 Calcium 10.3 Cardiac Enzymes 04/17/18 Range/Units 18:23 Troponin I 0.03 (< 0.04) ng/mL - Impressions ITS Impressions Chest X-Ray 04/17/18 17:53 IMPRESSION: Increased streaky opacities at the right lung base could represent atelectasis or infiltrate. Improved aeration in the left lung with persistent areas of streaky opacities in the left upper and left lower lobe, probably representing some atelectatic changes. D/ / 04/17/2018 19:38:43 Tommie Naranjo MD / earnold Interpreting Provider: Tommie Naranjo MD - Assessment and plan (1) Acute exacerbation of chronic obstructive pulmonary disease (COPD) Current Visit: Yes Status: Acute Assessment and plan: We will start patient on aerosol treatment every 4 hour, add Mucinex, Solu- Medrol 40 every 6 hours, insulin sliding scale, with the patient history of COPD may consider changing beta azeem to calcium channel azeem for rate control for her history of paroxysmal atrial fib. Reviewing sputum culture done lately patient was positive for MRSA as well as Stenotrophonos Maltophilia which was sensetive to Levofloxacin (2) End stage renal disease on dialysis Current Visit: Yes Status: Chronic Assessment and plan: Nephrology was consulted and notified by emergency room to continue follow patient patient had dialysis today (3) Acute and chronic respiratory failure with hypoxia Current Visit: No Status: Acute Assessment and plan: Secondary to COPD exacerbation possible healthcare associated pneumonia (4) PAF (paroxysmal atrial fibrillation) Current Visit: No Status: Acute Assessment and plan: Continue beta azeem for now may consider changing to Cardizem if okay with patient cardiology with her history of COPD, continue aspirin based on cardiology last admission , He stated she Was not a candidate for AC d /t falls, anemia, and history of GI bleed - Time Spent With Patient Total time spent is greater than 50% in coordination of care (as documented) at patient's floor/unit and/or counseling patient:
[2018-04-17] MEDS ORDERED: Thiamine (B-1) 100 MG in D5% in Water 50 ML IVPB ONE (21:27)
[2018-04-17] MEDS: Ipratropium/Albuterol Neb 3 ML IH SCH ×2 (22:37→23:07)
[2018-04-17 22:41] LABS: Phosphorous 3.6 mg/dL (2.7-4.5)
[2018-04-17 22:55] LABS: ABG Base Excess 1 mEq/L (-2 to 3); ABG HCO3 20 mEq/L (21-27); ABG Oxygen Saturation 93 % (95-98); ABG PCO2 18 mmHg (35-45); ABG PH 7.65 pH Units (7.32-7.45); ABG PO2 49 mmHg (85-104); ABG TCO2 20 mEq/L (20-26); Blood Gas Modality NIV; Blood Gas Respiration Rate 35; Blood Gas VT 620 cc
[2018-04-17] MEDS: amLODIPine 5 MG TABLET PO SCH (23:01)
[2018-04-17] MEDS: Pregabalin 50 MG CAPSULE PO SCH (23:01)
[2018-04-17] MEDS: hydrALAZINE 25 MG TABLET PO SCH (23:01)
[2018-04-17] MEDS: Aspirin 81 MG TAB.CHEW PO SCH (23:01)
[2018-04-18] MEDS: Ipratropium/Albuterol Neb 3 ML IH SCH ×6 (04:39→23:12)
[2018-04-18 05:20] LABS: Basophils % 0.3 %; Hematocrit 31.4 % (35.3-44.9); Hemoglobin 10.6 g/dL (11.5-15.4); Immature Granulocytes % 0.6 % (0-4); Lymphocytes # 0.2 K/mcL (0.6-4.6); Lymphocytes % 5.7 %; Mean Corpuscular HGB Conc 33.8 g/dL (31.6-35.5); Mean Corpuscular Hemoglobin 32.2 pg (28.0-33.3); Mean Corpuscular Volume 95.4 fL (83.0-100.0); Mean Platelet Volume 10.6 fL (9.4-12.4); Monocytes # 0.1 K/mcL (0.0-1.3); Neutrophils # 3.2 K/mcL (1.6-8.9); Platelet Count 152 K/mcL (140-400); Red Blood Count 3.29 M/mcL (3.82-4.97); Red Cell Distribution Width 13.4 % (11.5-14.5); Segmented Neutrophils % 91.4 %
[2018-04-18] MEDS: MethylPREDNISolone 40 MG/ML VIAL IVP SCH ×3 (06:21→16:41)
[2018-04-18] MEDS ORDERED: Dextrose Gel 15 GM/37.5 ML TUBE PO PRN ×2 (07:17)
[2018-04-18] MEDS ORDERED: D5% in Water 1,000 ML IVC PRN (07:17)
[2018-04-18] MEDS ORDERED: *HR* Dextrose 50 % in Water (Syg) 50 ML SYRINGE IVP PRN (07:17)
--- NOTE | 2018-04-18 07:33 | Electrocardiograph Report ---
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
[2018-04-18] MEDS: hydrALAZINE 25 MG TABLET PO SCH ×3 (08:14→20:47)
[2018-04-18] MEDS: Aspirin 81 MG TAB.CHEW PO SCH (08:14)
[2018-04-18] MEDS: Thiamine (B-1) 100 MG TABLET PO SCH (08:14)
[2018-04-18] MEDS: Pregabalin 50 MG CAPSULE PO SCH ×2 (08:15→20:46)
[2018-04-18] MEDS: Furosemide 40 MG TABLET PO SCH (08:15)
[2018-04-18] MEDS: Loratadine 10 MG TABLET PO SCH (08:15)
[2018-04-18] MEDS: amLODIPine 5 MG TABLET PO SCH ×2 (08:15→20:47)
[2018-04-18] MEDS: Metoprolol XL (24 HR) Succ 50 MG TAB.ER.24H PO SCH (08:15)
[2018-04-18] MEDS: Insulin LISPRO 300 UNITS/3 ML VIAL SQ SCH ×3 (08:17→16:40)
[2018-04-18] MEDS: *HR* Acetylcysteine 20% 600 MG/3 ML ORAL SYRINGE PO SCH (08:40)
[2018-04-18 08:57] LABS: Hepatitis B Surface Antigen Nonreactive (Nonreactive)
[2018-04-18 10:09] LABS: Calcium 10.3 mg/dL (8.6-10.3); Potassium 4.8 mEq/L (3.5-5.1)
--- NOTE | 2018-04-18 11:51 | Nephrology Consult Note ---
Date of Encounter: 04/18/18 Time of Encounter: 09:00 Assessment and Plan (1) ESRD on dialysis Current Visit: No Status: Chronic MWF dialysis in [place]; last dialysis yesterday Presence of L UE AV graft Saturating well on 4L NC; Potassium 4.8 Plan for HD tomorrow (2) Acute exacerbation of chronic obstructive pulmonary disease (COPD) Current Visit: Yes Status: Acute Care per Primary team: on Levaquin, RT q4, Mucinex, Solu-Medrol 40mg q6, insulin sliding scale (3) HTN (hypertension) Current Visit: No Status: Chronic Continuing home meds per primary team Qualifiers: Hypertension type: essential hypertension Qualified Code(s): I10 - Essential (primary) hypertension (4) PAF (paroxysmal atrial fibrillation) Current Visit: Yes Status: Chronic NSR on presentation; on Toprol home med History of Present Illness - Reason for Consult Consult date: 04/18/18 end stage renal disease Requesting physician: Benny Barnes - Chief Complaint ESRD in Dialysis; COPD exacerbation - History of Present Illness 77F past medical history significant for ESRD on dialysis MWF, last dialysis yesterday 04/17; COPD, admitted for COPD exacerbation consulted to Nephrology for dialysis management. Patient saturating well on nasal cannula at time of encounter. She denies orthopnea, does endorse leg swelling, no dysurea. Past Med Surg Social Fam HX - Past Medical History Medical history: asthma, atrial fibrillation, COPD, DVT, dialysis, hyperlipidemia, hypertension, osteoporosis, renal disease Additional medical history: broken right foot (2001), right arm fistula Psychiatric history: no psych history - Past Surgical History Surgical History: other Additional surgical history: back surgery L4-L5, , left nephrectomy for donation , cataract removal, CTR-left, A-V fistula placed in left arm. - Social History Smoking Status: Unknown if ever smoked Smokeless Tobacco Status: No Alcohol use: none Drug use: none - Family History Mother Living Status: Hx Family Cardiac Disorders: No Hx Family Respiratory Disorders: No Hx Family Cancer: Yes (colon) Hx Family GI Disorders: No Hx Family Endocrine Disorder: Yes (dm) Hx Family Neuromuscular Disorders: No Hx Family Neurologic Disorders: No Hx Family HEENT Disorders: No Hx Family Autoimmune Disorders: No Medications and Allergies Albuterol Sulfate [Ventolin Hfa] 2 puff IH Q4H PRN 10/12/16 [History] Aspirin 81 mg PO DAILY 10/12/16 [History] Atorvastatin [Lipitor] 40 mg PO HS 10/12/16 [History] Budesonide/Formoterol 160/4.5 [Symbicort 160/4.5] 2 puff IH BIDR 10/12/16 [ History] Furosemide [Lasix] 20 mg PO QPM 10/12/16 [History] Furosemide [Lasix] 40 mg PO QAM 10/12/16 [History] Metoprolol XL (24 HR) Succ [Toprol Xl] 50 mg PO DAILY 01/14/17 [History] Loratadine [Claritin] 10 mg PO DAILY 03/11/17 [History] Sevelamer [Renvela] 1,600 mg PO TIDWM 03/11/17 [History] Losartan [Cozaar] 50 mg PO BID #60 tablet 03/14/17 [Rx] Pregabalin [Lyrica] 50 mg PO BID 11/22/17 [History] B Complex W-C No.20/Folic Acid [Virt-Caps Softgel] 1 mg PO DAILY 01/01/18 [ History] Ipratropium/Albuterol Neb [Duoneb] 3 ml IH Q6HR 02/15/18 [History] Allopurinol [Zyloprim 100 MG] 100 mg PO DAILY 03/17/18 [History] Hydralazine HCl 50 mg PO TID 03/17/18 [History] Levothyroxine Sodium [Levoxyl] 50 mcg PO DAILY 03/17/18 [History] amLODIPine [Norvasc] 5 mg PO BID 03/17/18 [History] Acetylcysteine [K-Yrjeoz-b-Cysteine] 600 mg PO BID 04/17/18 [History] 3 Allergy/AdvReac Type Severity Reaction Status Date / Time codeine Allergy Rash Verified 03/16/18 21:48 gabapentin Allergy Itching Verified 03/16/18 21:48 Review of Systems All Systems: reviewed and no additional remarkable complaints except as stated Exam - Vital Signs Vital signs: Initial Vital Signs Temp Pulse Resp BP Pulse Ox 98.2 F 77 26 149/79 80 04/17/18 17:36 04/17/18 17:36 04/17/18 17:36 04/17/18 17:36 04/17/18 17:36 Vital Signs - Last 8 Hours Temp Pulse Resp BP Pulse Ox 04/18/18 11:02 16 96 04/18/18 10:30 98.2 F 88 16 138/70 94 04/18/18 07:28 98.3 F 94 15 146/75 93 04/18/18 07:19 16 93 04/18/18 04:39 18 95 04/18/18 03:56 99 F 83 19 158/71 96 Intake and Output 04/17/18 04/18/18 04/18/18 23:59 07:59 15:59 Intake Total 480 / 480 Balance 480 / 480 Intake: IV Fluids Rocephin 1,000 MG In Water for inj. (sterile) 10 ML @ 600 mls/ hr IVP ONCE ONE Rx#:[id number] Oral 480 / 480 Other: Meal Breakfast Percent of Meal Consumed 95% Weight 63.6 kg Blood Glucose* 141 152 - General Appearance General appearance: well-developed, well-nourished, appears started age EENT: mucous membranes moist Neck: no JVD, supple Additional Comments: no accessory muscle use; decreased breath sounds, mild wheeze, crackles Cardiology: no murmurs, no rub, no gallops, no edema, regular rate, regular rhythm, normal S1, normal S2 - Dialysis Access Dialysis Vascular Access: Arteriovenous Graft (LUE) Integumentary: no rash, warm and dry Neurologic: no focal deficit, alert and oriented x3 Musculoskeletal: no deformities, no erythema, no cyanosis, no clubbing Psychiatric: mood/affect appropriate, cooperative Results - Lab Results 04/18/18 04:18 04/18/18 09:30 Most recent lab results ABG pH 7.65 pH Units (7.32-7.45) H* 04/17/18 22:50 ABG pCO2 18 mmHg (35-45) L* 04/17/18 22:50 ABG pO2 49 mmHg (85-104) L* 04/17/18 22:50 ABG HCO3 20 mEq/L (21-27) L 04/17/18 22:50 ABG O2 Saturation 93 % (95-98) L 04/17/18 22:50 Calcium 10.3 mg/dL (8.6-10.3) 04/18/18 09:30 Phosphorus 3.6 mg/dL (2.7-4.5) 04/17/18 22:03 Magnesium 2.0 mg/dL (1.6-2.6) 04/17/18 22:03 Consult Discharge Plan - Plan Referrals: Vladimir Chaidez MD [Primary Care Provider] -
--- NOTE | 2018-04-18 12:06 | Internal Med Progress Note ---
Date of Encounter: 04/18/18 Time of Encounter: 08:50 - Assessment and plan (1) Acute exacerbation of chronic obstructive pulmonary disease (COPD) Current Visit: Yes Status: Acute Assessment and plan: Continue bronchodilators and steroids. Continue current antibiotics. Continue O2 supplementation. Clinically improving. We will continue intravenous steroids for another day and de-escalate tomorrow. Moderate risk for complications (2) Acute and chronic respiratory failure with hypoxia Current Visit: Yes Status: Acute Assessment and plan: Continue O2 supplementation. Patient currently on 4 L O2 supplementation. (3) PAF (paroxysmal atrial fibrillation) Current Visit: Yes Status: Chronic Assessment and plan: Rate controlled. Not on medical anticoagulation due to falls and prior history of GI bleed. (4) End stage renal disease on dialysis Current Visit: Yes Status: Chronic Assessment and plan: Consult nephrology for dialysis needs. Patient due for dialysis tomorrow. - Time Spent With Patient Total time spent is greater than 50% in coordination of care (as documented) at patient's floor/unit and/or counseling patient: - Subjective Interval history: Patient feels somewhat better today. Her breathing has improved. Denies any chest pain. Concerned that she is having recurrent bouts of COPD. Denies any sick contacts. No fever reported overnight. - Constitutional Vitals: Temp Pulse Resp BP Pulse Ox 98.2 F 88 16 138/70 96 04/18/18 10:30 04/18/18 10:30 04/18/18 11:02 04/18/18 10:30 04/18/18 11:02 General appearance: Present: A&O X 3 - Respiratory Respiratory exam: Present: prolonged expiratory phase, wheezes. Absent: accessory muscle use, rales, rhonchi - Cardiovascular Cardiovascular exam: Present: RRR, +S1, +S2. Absent: diastolic murmur, gallop, rubs, systolic murmur - GI/Abdominal GI/Abdominal exam: Present: normal bowel sounds, soft, no peritoneal signs. Absent: distended, tenderness - Extremities Exam Extremities exam: Present: pedal edema (Bilateral pedal edema), warm, radial pulses palpable and symmetrical. Absent: calf tenderness, cyanotic Internal Medicine: Result - Labs CBC & Chem 7: 04/18/18 04:18 04/18/18 09:30 Labs: Short CBC 04/18/18 Range/Units 04:18 WBC 3.5 L (4.3-11.1) K/mcL Hgb 10.6 L (11.5-15.4) g/dL Hct 31.4 L (35.3-44.9) % Plt Count 152 (140-400) K/mcL Neutrophils # 3.2 (1.6-8.9) K/mcL BMP 04/18/18 09:30 Sodium 136 Potassium 4.8 Chloride 94 L Carbon Dioxide 26 BUN 35 H Creatinine 5.15 H Glucose 220 H Calcium 10.3 Cardiac Enzymes 04/17/18 Range/Units 22:03 Troponin I 0.03 (< 0.04) ng/mL - ABG Interpretation ABG results: ABG ABG pH 7.65 pH Units (7.32-7.45) H* 04/17/18 22:50 ABG pCO2 18 mmHg (35-45) L* 04/17/18 22:50 ABG pO2 49 mmHg (85-104) L* 04/17/18 22:50 ABG O2 Saturation 93 % (95-98) L 04/17/18 22:50 Consult Discharge Plan - Plan Referrals: Vladimir Chaidez MD [Primary Care Provider] -
[2018-04-18] MEDS: *HR* Heparin 5,000 UNIT/ML VIAL SQ SCH (16:42)
[2018-04-18] MEDS ORDERED: Furosemide 20 MG TABLET PO SCH (18:00)
[2018-04-18] MEDS ORDERED: Insulin LISPRO 300 UNITS/3 ML VIAL SQ SCH (21:00)
[2018-04-19] MEDS: MethylPREDNISolone 40 MG/ML VIAL IVP SCH ×2 (01:33→06:33)
[2018-04-19] MEDS: *HR* Acetylcysteine 20% 600 MG/3 ML ORAL SYRINGE PO SCH ×5 (01:37→09:48)
[2018-04-19 02:12] LABS: Hepatitis B Surface Antibody 0.57 mIU/mL
[2018-04-19] MEDS: Ipratropium/Albuterol Neb 3 ML IH SCH ×4 (03:35→15:43)
[2018-04-19] MEDS: *HR* Heparin 5,000 UNIT/ML VIAL SQ SCH (06:33)
[2018-04-19] MEDS ORDERED: 0.9 % Sodium Chloride 1,000 ML ONE (07:20)
[2018-04-19 07:25] LABS: Hematocrit 28.5 % (35.3-44.9); Hemoglobin 9.5 g/dL (11.5-15.4); Mean Corpuscular HGB Conc 33.3 g/dL (31.6-35.5); Mean Corpuscular Hemoglobin 32.1 pg (28.0-33.3); Mean Corpuscular Volume 96.3 fL (83.0-100.0); Mean Platelet Volume 10.2 fL (9.4-12.4); Platelet Count 145 K/mcL (140-400); Red Blood Count 2.96 M/mcL (3.82-4.97)
[2018-04-19 07:49] LABS: Calcium 9.9 mg/dL (8.6-10.3); Potassium 6.3 mEq/L (3.5-5.1)
[2018-04-19] MEDS: Aspirin 81 MG TAB.CHEW PO SCH (08:01)
[2018-04-19] MEDS: Thiamine (B-1) 100 MG TABLET PO SCH (08:01)
[2018-04-19] MEDS: Loratadine 10 MG TABLET PO SCH (08:01)
[2018-04-19] MEDS: Pregabalin 50 MG CAPSULE PO SCH (08:01)
[2018-04-19] MEDS ORDERED: 0.9 % Sodium Chloride 250 ML IVC PRN (08:23)
[2018-04-19] MEDS ORDERED: 0.9 % Sodium Chloride 1,000 ML PRIME SCH (08:30)
[2018-04-19] MEDS: Furosemide 40 MG TABLET PO SCH (09:10)
[2018-04-19] MEDS: amLODIPine 5 MG TABLET PO SCH (09:10)
[2018-04-19] MEDS: hydrALAZINE 25 MG TABLET PO SCH ×2 (09:10→15:07)
[2018-04-19] MEDS: Metoprolol XL (24 HR) Succ 50 MG TAB.ER.24H PO SCH (09:10)
[2018-04-19] MEDS: Insulin LISPRO 300 UNITS/3 ML VIAL SQ SCH (12:56)
--- NOTE | 2018-04-19 14:44 | Discharge Summary ---
- NOTES TO OUTPATIENT PROVIDER Notes to Outpatient Provider: Patient hospitalized with acute exacerbation of COPD, acute on chronic respiratory failure. She was treated with bronchodilators, antibiotics and steroids and has had good improvement in her symptoms. She is clinically stable to be discharged home at this time on tapering course of steroids. She did receive hemodialysis here for ESRD. Date of Encounter: 04/19/18 Time of Encounter: 14:37 - Discharge Diagnosis (1) Acute exacerbation of chronic obstructive pulmonary disease (COPD) Priority: Primary Status: Acute (2) Acute and chronic respiratory failure with hypoxia Priority: Secondary Status: Acute (3) PAF (paroxysmal atrial fibrillation) Priority: Secondary Status: Chronic (4) End stage renal disease on dialysis Priority: Secondary Status: Chronic Hospital course: Ms. Carmona is a 77 year old female Patient with history of ESRD on hemodialysis, A. fib, COPD, hypertension, hyperlipidemia who was hospitalized here with acute exacerbation of COPD, acute on chronic respiratory failure. She was treated with bronchodilators, antibiotics and steroids and has had good improvement in her symptoms. She is clinically stable to be discharged home at this time on tapering course of steroids. She did receive hemodialysis here for ESRD. Patient is not on anticoagulation for atrial fibrillation due to history of GI bleed, anemia and recurrent falls. Discharge discussed with: patient, nurse - Time Spent with Patient Total time spent providing and/or coordinating discharge services: Greater than 30 minutes (35 min) - Discharge Medications Prescriptions: levoFLOXacin [Levaquin] 500 mg PO Q48H #3 tablet Home Medications: Albuterol Sulfate [Ventolin Hfa] 2 puff IH Q4H PRN 10/12/16 [History] Aspirin 81 mg PO DAILY 10/12/16 [History] Atorvastatin [Lipitor] 40 mg PO HS 10/12/16 [History] Budesonide/Formoterol 160/4.5 [Symbicort 160/4.5] 2 puff IH BIDR 10/12/16 [ History] Furosemide [Lasix] 20 mg PO QPM 10/12/16 [History] Furosemide [Lasix] 40 mg PO QAM 10/12/16 [History] Metoprolol XL (24 HR) Succ [Toprol Xl] 50 mg PO DAILY 01/14/17 [History] Loratadine [Claritin] 10 mg PO DAILY 03/11/17 [History] Sevelamer [Renvela] 1,600 mg PO TIDWM 03/11/17 [History] Losartan [Cozaar] 50 mg PO BID #60 tablet 03/14/17 [Rx] Pregabalin [Lyrica] 50 mg PO BID 11/22/17 [History] B Complex W-C No.20/Folic Acid [Virt-Caps Softgel] 1 mg PO DAILY 01/01/18 [ History] Ipratropium/Albuterol Neb [Duoneb] 3 ml IH Q6HR 02/15/18 [History] Allopurinol [Zyloprim 100 MG] 100 mg PO DAILY 03/17/18 [History] Hydralazine HCl 50 mg PO TID 03/17/18 [History] Levothyroxine Sodium [Levoxyl] 50 mcg PO DAILY 03/17/18 [History] amLODIPine [Norvasc] 5 mg PO BID 03/17/18 [History] Acetylcysteine [A-Usbbsi-x-Cysteine] 600 mg PO BID 04/17/18 [History] levoFLOXacin [Levaquin] 500 mg PO Q48H #3 tablet 04/19/18 [Rx] Allergies/Adverse Reactions: 3 Allergy/AdvReac Type Severity Reaction Status Date / Time codeine Allergy Rash Verified 03/16/18 21:48 gabapentin Allergy Itching Verified 03/16/18 21:48 Date of admission: 04/18/18 12:03 Primary care physician: Vladimir Chaidez MD Consults: 04/19/18 08:30 Consult to Dialysis [CONS] ONCE Discharging clinician: Zeenat Mckeon Anticipated date of discharge: 04/19/18 - Constitutional Vitals: Temp Pulse Resp BP Pulse Ox 97.4 F L 79 18 121/50 95 04/19/18 12:15 04/19/18 07:03 04/19/18 12:15 04/19/18 12:15 04/19/18 07:24 General appearance: Present: cooperative, A&O X 3, pleasant, answers questions appropriately - Respiratory Respiratory exam: Present: prolonged expiratory phase, wheezes. Absent: accessory muscle use, rales, rhonchi - Cardiovascular Cardiovascular exam: Present: RRR, +S1, +S2. Absent: diastolic murmur, gallop, rubs, systolic murmur - GI/Abdominal GI/Abdominal exam: Present: normal bowel sounds, soft, no peritoneal signs. Absent: distended, tenderness - Extremities Exam Extremities exam: Present: warm, radial pulses palpable and symmetrical. Absent : calf tenderness, cyanotic, pedal edema - Neurological Exam Neurological exam: Present: CN II-XII intact, oriented X3, no focal deficits. Absent: facial droop, speech deficit - Patient Status Disposition: Home, Self-Care Condition: Good Functional capacity at discharge: independent ambulation Overall status at discharge: patient is progressing back to baseline - Discharge Instructions Instructions: Acute Respiratory Distress Syndrome (DC), Chronic Obstructive Pulmonary Disease (DC) Follow Up With: Vladimir Chaidez MD [Primary Care Provider] - 04/27/18 2:00 pm () - Diet and Activity Activity: increase activity as tolerated, wear oxygen at all times Diet: low fat, low cholesterol, low salt diet
--- NOTE | 2018-04-19 15:40 | Nephrology Progress Note ---
Date of Encounter: 04/19/18 Time of Encounter: 09:45 - Assessment and Plan (1) ESRD on dialysis Current Visit: No Status: Chronic Chronic MWF; L AV graft Received dialysis outpatient last Tuesday Potassium 6.3 today Receiving dialysis today to stay on schedule (2) Acute exacerbation of chronic obstructive pulmonary disease (COPD) Current Visit: Yes Status: Acute On O2 supp; duonebs; abx per primary team (3) HTN (hypertension) Current Visit: No Status: Chronic chronic, on home meds Toprol, hydralazine; normotensive Qualifiers: Hypertension type: essential hypertension Qualified Code(s): I10 - Essential (primary) hypertension (4) PAF (paroxysmal atrial fibrillation) Current Visit: Yes Status: Chronic On Toprol Subjective Principal diagnosis: ESRD on Dialysis Interval history: Patient seen and evaluated at the dialysis unit ([facility]). She reports no shortness of breath, no chest discomfort, no lightheadedness. No acute events occurred overnight. Objective - Vital Signs Vital signs: Vital Signs Temp Pulse Resp BP Pulse Ox 04/19/18 12:15 97.4 F L 18 121/50 04/19/18 12:00 132/55 04/19/18 11:45 138/59 04/19/18 11:30 147/63 04/19/18 11:15 139/60 04/19/18 11:00 138/63 04/19/18 10:45 141/67 04/19/18 10:30 139/61 04/19/18 10:15 132/61 04/19/18 10:00 140/55 04/19/18 09:45 155/61 04/19/18 09:30 154/69 04/19/18 09:15 152/63 04/19/18 09:00 97.3 F L 18 146/63 04/19/18 07:24 18 95 04/19/18 07:03 97.8 F 79 18 143/64 94 04/19/18 04:17 98.6 F 80 15 144/69 93 04/19/18 03:34 16 94 04/19/18 00:57 98.5 F 84 16 138/62 94 04/18/18 23:12 16 94 04/18/18 19:48 99.8 F H 94 16 139/58 93 04/18/18 19:31 16 94 04/18/18 15:58 16 92 04/18/18 15:41 98.8 F 91 17 131/63 93 Intake and Output 04/18/18 04/19/18 04/19/18 23:59 07:59 15:59 Intake Total 360 / 360 300 / 300 1320 / 1320 Output Total 0 / 0 3600 / 3600 Balance 360 / 360 300 / 300 -2280 / -2280 Intake: Oral 360 / 360 300 / 300 720 / 720 Intake, Rinseback and Flushes 600 / 600 Output: Urine 0 / 0 Total Dialysis (HD) Output 3600 / 3600 Other: Meal Dinner Lunch Percent of Meal Consumed 10% 100% Weight 62.5 kg Blood Glucose* 144 124 138 Hemodialysis Net Fluid Removed 3000 (mL) Patient Weight 04/19/18 23:59 Weight 62.5 kg - General Appearance General appearance: Present: well-developed, well-nourished, appears started age Neck: Present: no JVD, supple Respiratory: Absent: wheezing, rales, course breath sounds Cardiology: Present: no murmurs, no rub, no gallops, edema (+1 pitting edema), regular rate, regular rhythm, normal S1, normal S2 Dialysis Vascular Access: Arteriovenous Graft (left) Gastrointestinal: Present: no tenderness Integumentary: Present: warm and dry Neurologic: Present: no focal deficit, alert and oriented x3 Musculoskeletal: Present: no deformities, no erythema, no cyanosis, no clubbing Psychiatric: Present: mood/affect appropriate, cooperative - Lab 04/19/18 07:10 04/19/18 07:10 Most recent lab results ABG pH 7.65 pH Units (7.32-7.45) H* 04/17/18 22:50 ABG pCO2 18 mmHg (35-45) L* 04/17/18 22:50 ABG pO2 49 mmHg (85-104) L* 04/17/18 22:50 ABG HCO3 20 mEq/L (21-27) L 04/17/18 22:50 ABG O2 Saturation 93 % (95-98) L 04/17/18 22:50 Calcium 9.9 mg/dL (8.6-10.3) 04/19/18 07:10 Phosphorus 3.6 mg/dL (2.7-4.5) 04/17/18 22:03 Magnesium 2.0 mg/dL (1.6-2.6) 04/17/18 22:03 Consult Discharge Plan - Plan Instructions: Acute Respiratory Distress Syndrome (DC), Chronic Obstructive Pulmonary Disease (DC) Referrals: Vladimir Chaidez MD [Primary Care Provider] - 04/27/18 2:00 pm () Prescriptions: levoFLOXacin [Levaquin] 500 mg PO Q48H #3 tablet
[2018-04-19 15:44] VITALS: BP 147/65
[2018-04-19] MEDS ORDERED: predniSONE 20 MG TABLET PO SCH (16:00)
[2018-04-19] MEDS ORDERED: levoFLOXacin 500 MG TABLET PO SCH (17:00)
[2018-04-19] MEDS ORDERED: Levofloxacin 500 MG/100 ML 500 MG/100 ML BAG IVPB SCH (20:00)
== END 2018-04-19 17:00 | disposition home or self-care (01) | DRG 190 ==
LOC: 2ANU 17:35 → EMEROO 17:35 → SUATTDRO 20:26 → 2ANU 21:21
PROVIDERS: ADMIT Internal Medicine; ATTEND Internal Medicine

== ENCOUNTER 2018-05-19 08:22 | Inpatient (IN) ==
--- NOTE | 2018-05-19 08:30 | Emergency Department Note ---
Disposition Clinical Impression: Acute and chronic respiratory failure with hypoxia, Healthcare-associated pneumonia, COPD (chronic obstructive pulmonary disease), Elevated troponin I level, End stage renal disease on dialysis Disposition: Admitted As Inpatient Condition: Fair General Adult HPI - General Chief complaint: ED Shortness of Breath/Dyspnea Stated complaint: dyspnea Time Seen by Provider: 05/19/18 08:29 - Related Data Home Medications Medication Instructions Recorded Confirmed Albuterol Sulfate [Ventolin Hfa] 2 puff IH Q4H PRN 10/12/16 05/19/18 Aspirin 81 mg PO DAILY 10/12/16 05/19/18 Atorvastatin [Lipitor] 40 mg PO HS 10/12/16 05/19/18 Budesonide/Formoterol 160/4.5 2 puff IH BIDR 10/12/16 05/19/18 [Symbicort 160/4.5] Furosemide [Lasix] 20 mg PO QPM 10/12/16 05/19/18 Furosemide [Lasix] 40 mg PO QAM 10/12/16 05/19/18 Metoprolol XL (24 HR) Succ [Toprol 50 mg PO DAILY 01/14/17 05/19/18 Xl] Loratadine [Claritin] 10 mg PO DAILY 03/11/17 05/19/18 Sevelamer [Renvela] 4,000 mg PO TIDWM 03/11/17 05/19/18 Pregabalin [Lyrica] 50 mg PO BID 11/22/17 05/19/18 B Complex W-C No.20/Folic Acid 1 mg PO DAILY 01/01/18 05/19/18 [Virt-Caps Softgel] Ipratropium/Albuterol Neb [Duoneb] 3 ml IH Q6HR PRN 02/15/18 05/19/18 Hydralazine HCl 50 mg PO TID 03/17/18 05/19/18 Levothyroxine Sodium [Levoxyl] 50 mcg PO DAILY 03/17/18 05/19/18 amLODIPine [Norvasc] 5 mg PO BID 03/17/18 05/19/18 Acetylcysteine 600 mg PO BID 04/17/18 05/19/18 [A-Oazjvg-u-Cysteine] Tiotropium [Spiriva] 2 puff IH DAILY 05/02/18 05/19/18 HYDROcodone BIT/Homatropine LQ 5 ml PO Q6H PRN 05/19/18 05/19/18 [Hycodan Syrup] levoFLOXacin [Levofloxacin] 500 mg PO DAILY 05/19/18 05/19/18 predniSONE [PredniSONE] 10 mg PO DAILY 05/19/18 05/19/18 Previous Rx's Medication Instructions Recorded Losartan [Cozaar] 50 mg PO DAILY #60 tablet 05/07/18 Allergies Allergy/AdvReac Type Severity Reaction Status Date / Time codeine Allergy Rash Verified 05/02/18 15:33 gabapentin Allergy Itching Verified 05/02/18 15:33 Past Medical History - Past Medical History Medical history: Reports: atrial fibrillation, COPD, DVT, dialysis, hyperlipidemia, hypertension, osteoporosis, renal disease Surgical history: Reports: other Psychiatric history: Reports: no psych history - Social History Smoking Status: Never smoker Smokeless Tobacco Status: No Alcohol use: Reports: none Drug use: Reports: none Course Vital Signs Pulse Rate 70 05/19/18 08:23 O2 Sat by Pulse Oximetry 76 05/19/18 08:23 Temperature 97.6 F 05/20/18 17:20 Pulse Rate 74 05/20/18 17:00 Respiratory Rate 19 05/20/18 17:20 Blood Pressure 151/62 05/20/18 17:20 O2 Sat by Pulse Oximetry 100 05/20/18 17:00 Oxygen Delivery Oxygen Delivery Bipap Medical Decision Making - Lab Data Result diagrams: 05/20/18 03:30 05/20/18 03:30 Lab Results 05/19/18 05/19/18 05/19/18 Range/Units 08:42 08:54 08:54 WBC 6.4 (4.3-11.1) K/mcL RBC 2.90 L (3.82-4.97) M/mcL Hgb 9.4 L (11.5-15.4) g/dL Hct 28.4 L (35.3-44.9) % MCV 97.9 (83.0-100.0) fL MCH 32.4 (28.0-33.3) pg MCHC 33.1 (31.6-35.5) g/dL RDW 15.9 H (11.5-14.5) % Plt Count 150 (140-400) K/mcL MPV 10.2 (9.4-12.4) fL Immature Gran % 0.3 (0-4) % Seg Neutrophils % 79.2 % Lymphocytes % 12.5 % Monocytes % 7.3 % Eosinophils % 0.5 % Basophils % 0.2 % Neutrophils # 5.1 (1.6-8.9) K/mcL Lymphocytes # 0.8 (0.6-4.6) K/mcL Monocytes # 0.5 (0.0-1.3) K/mcL Eosinophils # 0.0 (0.0-0.6) K/mcL Basophils # 0.0 (0.0-0.2) K/mcL PT (9.4-12.1) Seconds INR D-Dimer (0-500) ng/mLFEU ABG pH 7.48 H (7.32-7.45) pH Units ABG pCO2 38 (35-45) mmHg ABG pO2 51 L (85-104) mmHg ABG HCO3 28 H (21-27) mEq/L ABG Total CO2 30 H (20-26) mEq/L ABG O2 Saturation 88 L (95-98) % ABG Base Excess 5 H (-2 to 3) mEq/L O2 Delivery Device BiPAP Inspired O2 40.0 (1-15=lpm [id number]=%) PEEP 6 cm H2O Pressure Support 12 cm H2O Sodium 136 (136-145) mEq/L Potassium 5.1 (3.5-5.1) mEq/L Chloride 96 L (98-107) mEq/L Carbon Dioxide 26 (23-29) mEq/L BUN 42 H (8-23) mg/dL Creatinine 5.54 H (0.60-1.20) mg/dL Est GFR ( Amer) 9 L (> 60) Est GFR (Non-Af Amer) 7 L (> 60) BUN/Creatinine Ratio 8 (6-26) Glucose 80 (70-105) mg/dL Calculated Osmolality 291 (280-300) Lactic Acid (0.5-2.2) mmol/L Calcium 9.7 (8.6-10.3) mg/dL Troponin I 0.04 H* (< 0.04) ng/mL B-Natriuretic Peptide (Less than 100) pg/mL Hep Bs Antigen (Nonreactive) Hep Bs Antibody mIU/mL 05/19/18 05/19/18 05/19/18 Range/Units 08:54 08:54 08:54 WBC (4.3-11.1) K/mcL RBC (3.82-4.97) M/mcL Hgb (11.5-15.4) g/dL Hct (35.3-44.9) % MCV (83.0-100.0) fL MCH (28.0-33.3) pg MCHC (31.6-35.5) g/dL RDW (11.5-14.5) % Plt Count (140-400) K/mcL MPV (9.4-12.4) fL Immature Gran % (0-4) % Seg Neutrophils % % Lymphocytes % % Monocytes % % Eosinophils % % Basophils % % Neutrophils # (1.6-8.9) K/mcL Lymphocytes # (0.6-4.6) K/mcL Monocytes # (0.0-1.3) K/mcL Eosinophils # (0.0-0.6) K/mcL Basophils # (0.0-0.2) K/mcL PT (9.4-12.1) Seconds INR D-Dimer (0-500) ng/mLFEU ABG pH (7.32-7.45) pH Units ABG pCO2 (35-45) mmHg ABG pO2 (85-104) mmHg ABG HCO3 (21-27) mEq/L ABG Total CO2 (20-26) mEq/L ABG O2 Saturation (95-98) % ABG Base Excess (-2 to 3) mEq/L O2 Delivery Device Inspired O2 (1-15=lpm [id number]=%) PEEP cm H2O Pressure Support cm H2O Sodium (136-145) mEq/L Potassium (3.5-5.1) mEq/L Chloride (98-107) mEq/L Carbon Dioxide (23-29) mEq/L BUN (8-23) mg/dL Creatinine (0.60-1.20) mg/dL Est GFR ( Amer) (> 60) Est GFR (Non-Af Amer) (> 60) BUN/Creatinine Ratio (6-26) Glucose (70-105) mg/dL Calculated Osmolality (280-300) Lactic Acid 0.9 (0.5-2.2) mmol/L Calcium (8.6-10.3) mg/dL Troponin I (< 0.04) ng/mL B-Natriuretic Peptide 2247 H (Less than 100) pg/mL Hep Bs Antigen Nonreactive (Nonreactive) Hep Bs Antibody 0.00 mIU/mL 05/19/18 05/19/18 Range/Units 09:46 09:46 WBC (4.3-11.1) K/mcL RBC (3.82-4.97) M/mcL Hgb (11.5-15.4) g/dL Hct (35.3-44.9) % MCV (83.0-100.0) fL MCH (28.0-33.3) pg MCHC (31.6-35.5) g/dL RDW (11.5-14.5) % Plt Count (140-400) K/mcL MPV (9.4-12.4) fL Immature Gran % (0-4) % Seg Neutrophils % % Lymphocytes % % Monocytes % % Eosinophils % % Basophils % % Neutrophils # (1.6-8.9) K/mcL Lymphocytes # (0.6-4.6) K/mcL Monocytes # (0.0-1.3) K/mcL Eosinophils # (0.0-0.6) K/mcL Basophils # (0.0-0.2) K/mcL PT 11.3 (9.4-12.1) Seconds INR 1.0 D-Dimer 1800 H (0-500) ng/mLFEU ABG pH (7.32-7.45) pH Units ABG pCO2 (35-45) mmHg ABG pO2 (85-104) mmHg ABG HCO3 (21-27) mEq/L ABG Total CO2 (20-26) mEq/L ABG O2 Saturation (95-98) % ABG Base Excess (-2 to 3) mEq/L O2 Delivery Device Inspired O2 (1-15=lpm bm35-655=%) PEEP cm H2O Pressure Support cm H2O Sodium (136-145) mEq/L Potassium (3.5-5.1) mEq/L Chloride (98-107) mEq/L Carbon Dioxide (23-29) mEq/L BUN (8-23) mg/dL Creatinine (0.60-1.20) mg/dL Est GFR ( Amer) (> 60) Est GFR (Non-Af Amer) (> 60) BUN/Creatinine Ratio (6-26) Glucose (70-105) mg/dL Calculated Osmolality (280-300) Lactic Acid (0.5-2.2) mmol/L Calcium (8.6-10.3) mg/dL Troponin I (< 0.04) ng/mL B-Natriuretic Peptide (Less than 100) pg/mL Hep Bs Antigen (Nonreactive) Hep Bs Antibody mIU/mL Critical Care Time Critical Care Time: Yes Total Critical Care Time: 30 Attestation: The high probability of a clinically significant, sudden or life threatening deterioration of the [] system(s) required my full and direct attention, intervention and personal management. The aggregate critical care time was [] minutes. This time is in addition to time spent performing reported procedures but includes the following: [] Data Review and interpretation [] Patient assessment and monitoring of vital signs [] Documentation [] Medication orders and management Attestation Statement - Attestation Attestation: I examined this patient and my medical decision-making was reviewed with the Resident Physician. I agree with the documented findings, disposition and treatment plan as described except to the extent set forth below. [id number] time provided Patient presents with dyspnea. She is hypoxic at triage with a pulse ox in the 70s. Supplemental oxygen applied she appears otherwise in no acute respiratory distress. The patient was evaluated in conjunction with the resident physician Dr. Jim
[2018-05-19] MEDS ORDERED: methylPREDNISolone 125 MG/2 ML VIAL IVP ONE (08:31)
[2018-05-19] MEDS ORDERED: Ipratropium/Albuterol Neb 3 ML IH ONE (08:31)
[2018-05-19 08:47] LABS: ABG Base Excess 5 mEq/L (-2 to 3); ABG HCO3 28 mEq/L (21-27); ABG Oxygen Saturation 88 % (95-98); ABG PCO2 38 mmHg (35-45); ABG PH 7.48 pH Units (7.32-7.45); ABG PO2 51 mmHg (85-104); ABG TCO2 30 mEq/L (20-26); Blood Gas PEEP 6 cm H2O; Blood Gas Pressure Support 12 cm H2O
[2018-05-19 09:06] LABS: Basophils % 0.2 %; Eosinophils % 0.5 %; Hematocrit 28.4 % (35.3-44.9); Hemoglobin 9.4 g/dL (11.5-15.4); Immature Granulocytes % 0.3 % (0-4); Lymphocytes # 0.8 K/mcL (0.6-4.6); Lymphocytes % 12.5 %; Mean Corpuscular HGB Conc 33.1 g/dL (31.6-35.5); Mean Corpuscular Hemoglobin 32.4 pg (28.0-33.3); Mean Corpuscular Volume 97.9 fL (83.0-100.0); Mean Platelet Volume 10.2 fL (9.4-12.4); Monocytes # 0.5 K/mcL (0.0-1.3); Monocytes % 7.3 %; Neutrophils # 5.1 K/mcL (1.6-8.9); Platelet Count 150 K/mcL (140-400); Red Cell Distribution Width 15.9 % (11.5-14.5); Segmented Neutrophils % 79.2 %
[2018-05-19] MEDS ORDERED: Piperacillin/Tazobactam 3.375 GM in 0.9 % Sodium Chloride Mini Bag 100 ML IVPB ONE (09:19)
[2018-05-19] MEDS ORDERED: Levofloxacin 750 MG/150 ML 750 MG/150 ML BAG IVPB ONE (09:19)
[2018-05-19 09:27] LABS: Calcium 9.7 mg/dL (8.6-10.3); Potassium 5.1 mEq/L (3.5-5.1)
--- NOTE | 2018-05-19 09:30 | Emergency Department Note ---
Disposition Clinical Impression: Acute and chronic respiratory failure with hypoxia, Healthcare-associated pneumonia, Elevated troponin I level, End stage renal disease on dialysis COPD (chronic obstructive pulmonary disease) Qualifiers: COPD type: unspecified COPD Qualified Code(s): J44.9 - Chronic obstructive pulmonary disease, unspecified Disposition: Admitted As Inpatient Condition: Fair Time of Disposition: 10:20 SOB HPI - General Chief Complaint: ED Shortness of Breath/Dyspnea Stated Complaint: dyspnea Time Seen by Provider: 05/19/18 08:29 Source: patient, family Limitations: no limitations Nursing Notes Reviewed: Yes Vital Signs Reviewed: Yes - History of Present Illness Patient is a 77-year-old female who presents to [facility] ED with a chief complaint of shortness of breath. States her symptoms worsened over the night. States she feels like she constantly has to cough but not able to bring anything up. Patient follows with pulmonology. She was recently admitted 3 weeks ago and states that she has continued to be short of breath since leaving the hospital. Denies any recent fevers or chills. No chest pain , abdominal pain, problems with urination or bowel movements. Pt Subjective Complaint: shortness of breath, cough Onset (ago): week(s) Context: recent illness Severity: moderate Consistency/Duration: gradually worsening Improves with: nothing Worsens with: nothing Known history of: COPD, congestive heart failure Associated symptoms: Reports: cough. Denies: chest pain, fever, wheezing, sputum production, nausea/vomiting, abdominal pain Treatment prior to arrival: oxygen Cough present: Yes Sputum production: No - Related Data Home oxygen amount: 3 liters Home Medications Medication Instructions Recorded Confirmed Albuterol Sulfate [Ventolin Hfa] 2 puff IH Q4H PRN 10/12/16 05/02/18 Aspirin 81 mg PO DAILY 10/12/16 05/02/18 Atorvastatin [Lipitor] 40 mg PO HS 10/12/16 05/02/18 Budesonide/Formoterol 160/4.5 2 puff IH BIDR 10/12/16 05/02/18 [Symbicort 160/4.5] Furosemide [Lasix] 20 mg PO QPM 10/12/16 05/02/18 Furosemide [Lasix] 40 mg PO QAM 10/12/16 05/02/18 Metoprolol XL (24 HR) Succ [Toprol 50 mg PO DAILY 01/14/17 05/02/18 Xl] Loratadine [Claritin] 10 mg PO DAILY 03/11/17 05/02/18 Sevelamer [Renvela] 1,600 mg PO TIDWM 03/11/17 05/02/18 Pregabalin [Lyrica] 50 mg PO BID 11/22/17 05/02/18 B Complex W-C No.20/Folic Acid 1 mg PO DAILY 01/01/18 05/02/18 [Virt-Caps Softgel] Ipratropium/Albuterol Neb [Duoneb] 3 ml IH Q6HR 02/15/18 05/02/18 Hydralazine HCl 50 mg PO TID 03/17/18 05/02/18 Levothyroxine Sodium [Levoxyl] 50 mcg PO DAILY 03/17/18 05/02/18 amLODIPine [Norvasc] 5 mg PO BID 03/17/18 05/02/18 Acetylcysteine 600 mg PO BID 04/17/18 05/02/18 [X-Ktbhgg-b-Cysteine] Tiotropium [Spiriva] 1 puff IH DAILY 05/02/18 05/02/18 Previous Rx's Medication Instructions Recorded levoFLOXacin [Levofloxacin] 500 mg PO Q48H 6 Days #3 tablet 05/05/18 Losartan [Cozaar] 50 mg PO DAILY #60 tablet 05/07/18 Allergies Allergy/AdvReac Type Severity Reaction Status Date / Time codeine Allergy Rash Verified 05/02/18 15:33 gabapentin Allergy Itching Verified 05/02/18 15:33 All systems ED: reviewed and negative except as stated. Past Medical History - Past Medical History Attestation: Yes The following information was validated with the patient. Source: patient Medical history: Reports: atrial fibrillation, COPD, DVT, dialysis, hyperlipidemia, hypertension, osteoporosis, renal disease Surgical history: Reports: other Psychiatric history: Reports: no psych history - Social History Smoking Status: Never smoker Smokeless Tobacco Status: No Alcohol use: Reports: none Drug use: Reports: none Physical Exam - General Limitations: no limitations General appearance: alert, in no apparent distress - Head Head exam: atraumatic, normocephalic, normal inspection - Eye Eye exam: Present: normal appearance, EOMI - ENT ENT exam: normal exam, normal oropharynx, mucous membranes moist - Neck Neck exam: Present: normal inspection, full ROM, trachea midline - Chest Chest inspection: Present: normal inspection, symmetric chest wall rise - Respiratory Respiratory exam: Present: normal lung sounds bilaterally - Cardiovascular Cardiovascular exam: Present: regular rate, normal rhythm, normal heart sounds - Abdominal Exam Abdominal exam: Present: soft, Non-Tender. Absent: tenderness, distention, guarding, rebound, rigidity - Extremities Exam Extremities exam: Present: normal inspection, full ROM. Absent: tenderness, pedal edema - Back Exam Back exam: Present: normal inspection, full ROM. Absent: tenderness - Neurological Exam Neurological exam: Present: alert, oriented X3 - Psychiatric Psychiatric exam: Present: normal affect, normal mood - Skin Skin exam: Present: warm, dry, intact, normal color Course Course Narrative: Patient seen and examined. Shortness of breath. Her initial oxygen saturation in triage was 76% on 3 L of home O2. She was brought back immediately and respiratory therapy was called to bring the BiPAP. Patient is mentating without difficulty. Her states she is normally around 92% on 3 L home O2. Past medical history significant for COPD. On my lung exam, she does not have any wheezes and is moving air well without tachypnea. We placed the BiPAP on her and gave her one DuoNeb breathing treatment. Patient's oxygen saturation increased to 92%. Patient is feeling more comfortable at this time. Cardiopulmonary workup initiated. Patient is on dialysis Tuesday and Tuesday and follows with Dr. Araujo. - Reevaluation(s) Reevaluation #1: Upon further inquiry into patient's history, she was seen by pulmonology last time she was here. They did bronchoscope and found extensive mucus plugging. Patient has a history of tracheal bronchiectasis with severe mucus plugging. I suspect that her acute respiratory distress today is likely secondary to this. However since she is a dialysis patient as well, I discussed the case with general forecaster Dr. Evans get her. Patient is due for dialysis today as well. I also discussed with pulmonology Dr. Quintana who has accepted patient for admission to ICU stepdown. Time: 10:15 Vital Signs Pulse Rate 70 05/19/18 08:23 O2 Sat by Pulse Oximetry 76 05/19/18 08:23 Temperature 98.5 F 08/10/18 08:25 Pulse Rate 66 05/19/18 09:47 Respiratory Rate 24 05/19/18 09:47 Blood Pressure 153/73 05/19/18 09:47 O2 Sat by Pulse Oximetry 93 05/19/18 09:47 Oxygen Delivery Oxygen Delivery Bipap Shortness of Breath/Dyspnea - Medical Records Medical records reviewed: Yes I reviewed the patient's medical records. - Lab Data Lab results reviewed: Yes I reviewed the patient's lab results. Result diagrams: 05/19/18 08:54 05/19/18 08:54 Lab Results 05/19/18 05/19/18 05/19/18 Range/Units 08:42 08:54 08:54 WBC 6.4 (4.3-11.1) K/mcL RBC 2.90 L (3.82-4.97) M/mcL Hgb 9.4 L (11.5-15.4) g/dL Hct 28.4 L (35.3-44.9) % MCV 97.9 (83.0-100.0) fL MCH 32.4 (28.0-33.3) pg MCHC 33.1 (31.6-35.5) g/dL RDW 15.9 H (11.5-14.5) % Plt Count 150 (140-400) K/mcL MPV 10.2 (9.4-12.4) fL Immature Gran % 0.3 (0-4) % Seg Neutrophils % 79.2 % Lymphocytes % 12.5 % Monocytes % 7.3 % Eosinophils % 0.5 % Basophils % 0.2 % Neutrophils # 5.1 (1.6-8.9) K/mcL Lymphocytes # 0.8 (0.6-4.6) K/mcL Monocytes # 0.5 (0.0-1.3) K/mcL Eosinophils # 0.0 (0.0-0.6) K/mcL Basophils # 0.0 (0.0-0.2) K/mcL ABG pH 7.48 H (7.32-7.45) pH Units ABG pCO2 38 (35-45) mmHg ABG pO2 51 L (85-104) mmHg ABG HCO3 28 H (21-27) mEq/L ABG Total CO2 30 H (20-26) mEq/L ABG O2 Saturation 88 L (95-98) % ABG Base Excess 5 H (-2 to 3) mEq/L O2 Delivery Device BiPAP Inspired O2 40.0 (1-15=lpm if63-876=%) PEEP 6 cm H2O Pressure Support 12 cm H2O Sodium 136 (136-145) mEq/L Potassium 5.1 (3.5-5.1) mEq/L Chloride 96 L (98-107) mEq/L Carbon Dioxide 26 (23-29) mEq/L BUN 42 H (8-23) mg/dL Creatinine 5.54 H (0.60-1.20) mg/dL Est GFR ( Amer) 9 L (> 60) Est GFR (Non-Af Amer) 7 L (> 60) BUN/Creatinine Ratio 8 (6-26) Glucose 80 (70-105) mg/dL Calculated Osmolality 291 (280-300) Lactic Acid (0.5-2.2) mmol/L Calcium 9.7 (8.6-10.3) mg/dL Troponin I 0.04 H* (< 0.04) ng/mL B-Natriuretic Peptide (Less than 100) pg/mL 05/19/18 05/19/18 Range/Units 08:54 08:54 WBC (4.3-11.1) K/mcL RBC (3.82-4.97) M/mcL Hgb (11.5-15.4) g/dL Hct (35.3-44.9) % MCV (83.0-100.0) fL MCH (28.0-33.3) pg MCHC (31.6-35.5) g/dL RDW (11.5-14.5) % Plt Count (140-400) K/mcL MPV (9.4-12.4) fL Immature Gran % (0-4) % Seg Neutrophils % % Lymphocytes % % Monocytes % % Eosinophils % % Basophils % % Neutrophils # (1.6-8.9) K/mcL Lymphocytes # (0.6-4.6) K/mcL Monocytes # (0.0-1.3) K/mcL Eosinophils # (0.0-0.6) K/mcL Basophils # (0.0-0.2) K/mcL ABG pH (7.32-7.45) pH Units ABG pCO2 (35-45) mmHg ABG pO2 (85-104) mmHg ABG HCO3 (21-27) mEq/L ABG Total CO2 (20-26) mEq/L ABG O2 Saturation (95-98) % ABG Base Excess (-2 to 3) mEq/L O2 Delivery Device Inspired O2 (1-15=lpm hd79-519=%) PEEP cm H2O Pressure Support cm H2O Sodium (136-145) mEq/L Potassium (3.5-5.1) mEq/L Chloride (98-107) mEq/L Carbon Dioxide (23-29) mEq/L BUN (8-23) mg/dL Creatinine (0.60-1.20) mg/dL Est GFR ( Amer) (> 60) Est GFR (Non-Af Amer) (> 60) BUN/Creatinine Ratio (6-26) Glucose (70-105) mg/dL Calculated Osmolality (280-300) Lactic Acid 0.9 (0.5-2.2) mmol/L Calcium (8.6-10.3) mg/dL Troponin I (< 0.04) ng/mL B-Natriuretic Peptide 2247 H (Less than 100) pg/mL - Radiology Data Radiology results reviewed: Yes I reviewed the patient's radiology results. Chest X-Ray 05/19/18 08:31 IMPRESSION: Interval increase in extensive left lung pulmonary opacity may represent a combination of atelectasis, pneumonia, and/or pleural effusion. Interval worsening in the right lower lung pulmonary opacity. Slight leftward mediastinal shift may be secondary to left lung atelectasis. No evidence of pneumothorax. RECOMMENDATION: Recommend continued radiographic follow-up. D/ / 05/19/2018 09:27:17 Seb Kraus MD / Mica Sanchez Interpreting Provider: Seb Kraus MD - EKG Data EKG attestation: Yes I reviewed and interpreted this EKG. EKG results narrative: EKG done at 832 shows normal sinus rhythm with a rate of [address] elevation or depression noted. Left axis deviation. Mild first-degree AV block noted. Unchanged from prior EKG done 05/02/2018.
[2018-05-19 09:32] LABS: Troponin I 0.04 ng/mL (< 0.04)
[2018-05-19] MEDS ORDERED: 0.9 % Sodium Chloride 250 ML IVC PRN (10:15)
[2018-05-19] MEDS ORDERED: 0.9 % Sodium Chloride 1,000 ML ONE (10:31)
[2018-05-19] MEDS ORDERED: Ipratropium/Albuterol Neb 3 ML IH PRN (10:32)
[2018-05-19] MEDS ORDERED: Naloxone 0.4 MG/ML INJ IVP PRN (10:32)
[2018-05-19 10:47] LABS: Prothrombin Time 11.3 Seconds (9.4-12.1)
--- NOTE | 2018-05-19 10:49 | Anesthesia Evaluation PreOp ---
Date of Encounter: 05/19/18 Time of Encounter: 10:47 - Past History Planned Operation: Bronchoscopy Cardiac History: HTN, Hyperlipidemia Pulmonary History: Former smoker, COPD (End Stage with recurrent mucus plug, on BIPAP) HEAD USHER History: Denies Any Significant HX Other Medical History: Renal (ESRD Dialysis MWF, last dialyzed two days ago) Anesthesia History: No Prior Anesthetic Complications, Past Anesthesia (AV fistula, Bronchoscopy x 2) : No Alcohol Use: none Drug use: none Medications and Allergies Albuterol Sulfate [Ventolin Hfa] 2 puff IH Q4H PRN 10/12/16 [History] Aspirin 81 mg PO DAILY 10/12/16 [History] Atorvastatin [Lipitor] 40 mg PO HS 10/12/16 [History] Budesonide/Formoterol 160/4.5 [Symbicort 160/4.5] 2 puff IH BIDR 10/12/16 [ History] Furosemide [Lasix] 20 mg PO QPM 10/12/16 [History] Furosemide [Lasix] 40 mg PO QAM 10/12/16 [History] Metoprolol XL (24 HR) Succ [Toprol Xl] 50 mg PO DAILY 01/14/17 [History] Loratadine [Claritin] 10 mg PO DAILY 03/11/17 [History] Sevelamer [Renvela] 4,000 mg PO TIDWM 03/11/17 [History] Pregabalin [Lyrica] 50 mg PO BID 11/22/17 [History] B Complex W-C No.20/Folic Acid [Virt-Caps Softgel] 1 mg PO DAILY 01/01/18 [ History] Ipratropium/Albuterol Neb [Duoneb] 3 ml IH Q6HR PRN 02/15/18 [History] Hydralazine HCl 50 mg PO TID 03/17/18 [History] Levothyroxine Sodium [Levoxyl] 50 mcg PO DAILY 03/17/18 [History] amLODIPine [Norvasc] 5 mg PO BID 03/17/18 [History] Acetylcysteine [Z-Feiqmt-s-Cysteine] 600 mg PO BID 04/17/18 [History] Tiotropium [Spiriva] 2 puff IH DAILY 05/02/18 [History] Losartan [Cozaar] 50 mg PO DAILY #60 tablet 05/07/18 [Rx] HYDROcodone BIT/Homatropine LQ [Hycodan Syrup] 5 ml PO Q6H PRN 05/19/18 [History ] levoFLOXacin [Levofloxacin] 500 mg PO DAILY 05/19/18 [History] predniSONE [PredniSONE] 10 mg PO DAILY 05/19/18 [History] 3 Allergy/AdvReac Type Severity Reaction Status Date / Time codeine Allergy Rash Verified 05/02/18 15:33 gabapentin Allergy Itching Verified 05/02/18 15:33 - Meds/Allergy Pre-op Review Medications Reviewed: Yes Allergies Reviewed: Yes Beta Blockers on Current Med List: No Anesthesia Results - Labs 05/19/18 08:54 05/19/18 08:54 SINGLE XRAY VIEW OF THE CHEST 05/19/2018 8:48 am COMPARISON: 05/02/2018 HISTORY: ORDERING SYSTEM PROVIDED HISTORY: dyspnea FINDINGS: Interval increase in extensive left lung pulmonary opacity. Interval increase in right lower lung pulmonary opacities. Right lung appears hyperinflated. No evidence of pneumothorax. There is a slight leftward mediastinal shift. Cardiac and mediastinal contours are obscured but likely unchanged. There is atherosclerotic disease within the thoracic aorta. No acute osseous abnormalities. Limited Echocardiogram Name: Monisha Carmona Date of Study: 01/05/2018 Impressions: LVEF 60%. Normal LV chamber size and function. Mild concentric left ventricular hypertrophy. - Imaging EKG: report reviewed (SINUS RHYTHM WITH FIRST DEGREE AV BLOCK POSSIBLE LEFT ATRIAL ENLARGEMENT) Anesthesia Exam O2 Sat Height 1.65 m Height 1.65 m Weight 66.7 kg Weight 72.575 kg O2 Sat by Pulse Oximetry 93 O2 Sat by Pulse Oximetry 94 O2 Sat by Pulse Oximetry 90 O2 Sat by Pulse Oximetry 93 O2 Sat by Pulse Oximetry 92 O2 Sat by Pulse Oximetry 91 O2 Sat by Pulse Oximetry 92 O2 Sat by Pulse Oximetry 81 O2 Sat by Pulse Oximetry 76 O2 Sat by Pulse Oximetry 76 Vital Signs Pulse Pulse Ox 70 76 05/19/18 08:23 05/19/18 08:23 Vital Signs/O2 Sat, Most Current Temp Pulse Resp BP Pulse Ox 98.2 F 74 32 162/83 93 05/19/18 11:00 05/19/18 11:00 05/19/18 11:05 05/19/18 11:05 05/19/18 11:05 NPO (# of Hours): > 8 hrs Pain Scale: 0 Pain Scale Used: Numeric (1 - 10) - HEENT Pupil (Motor): Pupils equal, EOMI Mallampati: II Teeth: Edentulous Oral Opening: Greater than 3 - HEAD USHER LOC: Oriented HEAD USHER Motor: Normal RUE, Normal LUE, Normal RLE, Normal LLE, Normal Face HEAD USHER Sensory: Normal: RUE, LUE, RLE, LLE, Face - Cardiac Rhythm: Regular Murmur: None JVD: No Carotid Bruit: No - Pulmonary Breath Sounds: left Rhonchi, right Clear Respiratory Effort: Labored Anesthesia Assess/Plan ASA Score: 4 Modified Pablo Scale for Level of Consciousness: Cooperative, oriented, and tranquil Anesthetic Plan: General Autologous Blood: Yes Monitoring Plan: Standard Monitors Recovery Plan: PACU
--- NOTE | 2018-05-19 10:55 | Nephrology Consult Note ---
Date of Encounter: 05/19/18 Time of Encounter: 10:51 Assessment and Plan (1) End stage renal disease on dialysis Current Visit: Yes Status: Chronic Plan for HD today Renal diet when diet advanced Strict I/Os Avoid nephrotoxins if possible (2) Acute and chronic respiratory failure with hypoxia Current Visit: Yes Status: Acute per primary/pulmonary team (3) COPD (chronic obstructive pulmonary disease) Current Visit: Yes Status: Chronic per primary/pulmonary team Qualifiers: COPD type: unspecified COPD Qualified Code(s): J44.9 - Chronic obstructive pulmonary disease, unspecified History of Present Illness - Reason for Consult Consult date: 05/19/18 - Chief Complaint ESRD on dialysis, shortness of breath - History of Present Illness Ms Carmona is a 77-year-old female with a PMH of COPD, atrial fibrillation, ESRD on dialysis MWF (patient of Dr Liao), history of tracheal bronchiectasis with severe mucus plugging, and HTN who presents to [facility] ED with a chief complaint of shortness of breath. States her symptoms worsened over the night with her home pulse ox showing O2 sat mostly in the 60s% today. States she feels like she constantly has to cough but not able to bring anything up. Patient follows with pulmonology. She was recently admitted 3 weeks ago and states that she has continued to be short of breath since leaving the hospital. Denies any recent fevers or chills. No chest pain, abdominal pain, problems with urination or bowel movements. Patient was on her way to dialysis today when she had to divert to the ED for shortness of breath. Past Med Surg Social Fam HX - Past Medical History Medical history: atrial fibrillation, COPD, DVT, dialysis, hyperlipidemia, hypertension, osteoporosis, renal disease Additional medical history: broken right foot (2001), left arm fistula Psychiatric history: no psych history - Past Surgical History Surgical History: other Additional surgical history: back surgery L4-L5, , left nephrectomy for donation , cataract removal, CTR-left, A-V fistula placed in left arm. - Social History Smoking Status: Never smoker Smokeless Tobacco Status: No Alcohol use: none Drug use: none - Family History Mother Adopted: No Family Member Ethnicity: Non- Living Status: Hx Family Cardiac Disorders: No Hx Family Respiratory Disorders: No Hx Family Cancer: Yes Hx Family GI Disorders: No Hx Family Endocrine Disorder: No Hx Family Neuromuscular Disorders: No Hx Family Neurologic Disorders: No Hx Family HEENT Disorders: No Hx Family Autoimmune Disorders: No Medications and Allergies Albuterol Sulfate [Ventolin Hfa] 2 puff IH Q4H PRN 10/12/16 [History] Aspirin 81 mg PO DAILY 10/12/16 [History] Atorvastatin [Lipitor] 40 mg PO HS 10/12/16 [History] Budesonide/Formoterol 160/4.5 [Symbicort 160/4.5] 2 puff IH BIDR 10/12/16 [ History] Furosemide [Lasix] 20 mg PO QPM 10/12/16 [History] Furosemide [Lasix] 40 mg PO QAM 10/12/16 [History] Metoprolol XL (24 HR) Succ [Toprol Xl] 50 mg PO DAILY 01/14/17 [History] Loratadine [Claritin] 10 mg PO DAILY 03/11/17 [History] Sevelamer [Renvela] 1,600 mg PO TIDWM 03/11/17 [History] Pregabalin [Lyrica] 50 mg PO BID 11/22/17 [History] B Complex W-C No.20/Folic Acid [Virt-Caps Softgel] 1 mg PO DAILY 01/01/18 [ History] Ipratropium/Albuterol Neb [Duoneb] 3 ml IH Q6HR 02/15/18 [History] Hydralazine HCl 50 mg PO TID 03/17/18 [History] Levothyroxine Sodium [Levoxyl] 50 mcg PO DAILY 03/17/18 [History] amLODIPine [Norvasc] 5 mg PO BID 03/17/18 [History] Acetylcysteine [I-Xycsmm-r-Cysteine] 600 mg PO BID 04/17/18 [History] Tiotropium [Spiriva] 1 puff IH DAILY 05/02/18 [History] Losartan [Cozaar] 50 mg PO DAILY #60 tablet 05/07/18 [Rx] HYDROcodone BIT/Homatropine LQ [Hycodan Syrup] 5 ml PO Q6H PRN 05/19/18 [History ] levoFLOXacin [Levofloxacin] 500 mg PO DAILY 05/19/18 [History] predniSONE [PredniSONE] 10 mg PO DAILY 05/19/18 [History] 3 Allergy/AdvReac Type Severity Reaction Status Date / Time codeine Allergy Rash Verified 05/02/18 15:33 gabapentin Allergy Itching Verified 05/02/18 15:33 Review of Systems All Systems: reviewed and no additional remarkable complaints except as stated Constitutional: malaise, weakness, no fatigue Cardiovascular: dyspnea, dyspnea on exertion, leg edema, no chest pain Respiratory: cough, dyspnea, dyspnea on exertion Gastrointestinal: no vomiting Neurological: no behavioral changes Exam - Vital Signs Vital signs: Initial Vital Signs Pulse Pulse Ox 70 76 05/19/18 08:23 05/19/18 08:23 Vital Signs - Last 8 Hours Resp BP 05/19/18 10:27 23 165/78 Intake and Output 05/18/18 05/19/18 05/19/18 23:59 07:59 15:59 Intake Total 100 / 100 Balance 100 / 100 Intake: IV Fluids 100 / 100 Zosyn 3.375 GM In 0.9 % Sodium 100 / 100 Chloride (Mini-Bag +) 100 ML @ 25 mls/hr IVPB ONCE ONE Rx#: [id number] - General Appearance General appearance: well-developed, well-nourished EENT: ATNC, mucous membranes moist, hearing intact, vision intact Neck: supple Respiratory: course breath sounds, rhonchi Cardiology: edema, normal S1, normal S2 - Dialysis Access Dialysis Vascular Access: Arteriovenous Fistula thrill: Yes bruit: Yes Gastrointestinal: no tenderness, no guarding Integumentary: warm and dry Neurologic: alert and oriented x3 Psychiatric: mood/affect appropriate, cooperative Results - Lab Results 05/19/18 08:54 05/19/18 08:54 Most recent lab results ABG pH 7.48 pH Units (7.32-7.45) H 05/19/18 08:42 ABG pCO2 38 mmHg (35-45) 05/19/18 08:42 ABG pO2 51 mmHg (85-104) L 05/19/18 08:42 ABG HCO3 28 mEq/L (21-27) H 05/19/18 08:42 ABG O2 Saturation 88 % (95-98) L 05/19/18 08:42 Calcium 9.7 mg/dL (8.6-10.3) 05/19/18 08:54 Consult Discharge Plan - Plan Referrals: Vladimir Chaidez MD [Primary Care Provider] -
--- NOTE | 2018-05-19 10:57 | Pulmonology History & Physical ---
<Keegan Malave - Last Filed: 05/19/18 11:04> Date of Encounter: 05/19/18 Time of Encounter: 10:54 Assessment and Plan (1) Acute and chronic respiratory failure with hypoxia Current visit: Yes Status: Acute Likely multifactorial in the setting of acute exacerbation of COPD with questionable pneumonia, as well as mucus plugging causing complete opacification of the left long. Patient was initially hypoxic on her home oxygen dose of 3L. Patient was placed on BiPAP and has responded well. Continue BiPAP for now and plan for bronchoscopy for airway inspection and relief of mucus plugging. We will reevaluate post-bronchoscopy. (2) Mucus plugging of bronchi Current visit: No Status: Chronic Recurrent issue for the patient has had multiple bronchoscopies in the past. Chest x-ray reveals complete opacification of the left lung likely related to mucus plugging. Plan for bronchoscopy today. Written consent has been obtained from the patient. Patient has had episodes of desaturation with previous bronchoscopies requiring intubation so we have asked anesthesia to be available in the event that the patient decompensates during bronchoscopy. (3) Acute exacerbation of chronic obstructive pulmonary disease (COPD) Current visit: No Status: Acute Likely secondary to mucous plugging with possible pneumonia. Patient is on chronic steroids at home, we will transition to Solu-Medrol 40 mg every 8, Levaquin, scheduled bronchodilators. (4) Pneumonia Current visit: No Status: Suspected Possible. Patient has had recurrent mucus plugging due to excessive secretions in the setting of recurrent pneumonia. No fever, leukocytosis, lactic acid normal. We will send sample from sputum for culture and Gram stain. Qualifiers: Pneumonia type: due to unspecified organism Laterality: left Lung location: unspecified part of lung Qualified Code(s): J18.9 - Pneumonia, unspecified organism (5) Elevated troponin Current visit: No Status: Acute Troponin 0.05. Likely chronic given the patient's ESRD. No active chest pain, EKG changes. We will trend troponins. (6) Hypertension Current visit: No Status: Chronic Normotensive at this time. Continue home medications. Continue to monitor blood pressure. Qualifiers: Hypertension type: essential hypertension Qualified Code(s): I10 - Essential (primary) hypertension (7) DVT prophylaxis Current visit: No Status: Acute Heparin 5000 units subcutaneous twice a day History of Present Illness Chief complaint: Dyspnea HPI: Ms. Carmona is a 77 year old female with history of recurrent mucus plugging, ESRD, COPD on chronic steroid therapy, hypothyroidism, hypertension presents with dyspnea. Patient reports that she has been coughing over the last several days and feels like she has mucus but is been I am able to produce any mucus. She had associated shortness of breath gradually worsened until this morning where she felt severely short of breath. She used her home pulse oximeter and noted her pulse ox to be in the 60s. Oral emergency department she had an oxygen saturation in the 70s. She was placed on BiPAP which improved her oxygen saturations in the mid 90s. She denies fever, chills, chest pain, abdominal pain, nausea, vomiting, diarrhea. Past Med Surg Social Fam HX - Past Medical History Medical history: atrial fibrillation, COPD, DVT, dialysis, hyperlipidemia, hypertension, osteoporosis, renal disease Additional medical history: broken right foot (2001), left arm fistula Psychiatric history: no psych history - Past Surgical History Surgical History: other Additional surgical history: back surgery L4-L5, , left nephrectomy for donation , cataract removal, CTR-left, A-V fistula placed in left arm. - Social History Smoking Status: Never smoker Smokeless Tobacco Status: No Alcohol use: none Drug use: none - Family History Mother Adopted: No Family Member Ethnicity: Non- Living Status: Hx Family Cardiac Disorders: No Hx Family Respiratory Disorders: No Hx Family Cancer: Yes Hx Family GI Disorders: No Hx Family Endocrine Disorder: No Hx Family Neuromuscular Disorders: No Hx Family Neurologic Disorders: No Hx Family HEENT Disorders: No Hx Family Autoimmune Disorders: No Medications and Allergies Albuterol Sulfate [Ventolin Hfa] 2 puff IH Q4H PRN 10/12/16 [History] Aspirin 81 mg PO DAILY 10/12/16 [History] Atorvastatin [Lipitor] 40 mg PO HS 10/12/16 [History] Budesonide/Formoterol 160/4.5 [Symbicort 160/4.5] 2 puff IH BIDR 10/12/16 [ History] Furosemide [Lasix] 20 mg PO QPM 10/12/16 [History] Furosemide [Lasix] 40 mg PO QAM 10/12/16 [History] Metoprolol XL (24 HR) Succ [Toprol Xl] 50 mg PO DAILY 01/14/17 [History] Loratadine [Claritin] 10 mg PO DAILY 03/11/17 [History] Sevelamer [Renvela] 4,000 mg PO TIDWM 03/11/17 [History] Pregabalin [Lyrica] 50 mg PO BID 11/22/17 [History] B Complex W-C No.20/Folic Acid [Virt-Caps Softgel] 1 mg PO DAILY 01/01/18 [ History] Ipratropium/Albuterol Neb [Duoneb] 3 ml IH Q6HR PRN 02/15/18 [History] Hydralazine HCl 50 mg PO TID 03/17/18 [History] Levothyroxine Sodium [Levoxyl] 50 mcg PO DAILY 03/17/18 [History] amLODIPine [Norvasc] 5 mg PO BID 03/17/18 [History] Acetylcysteine [Z-Ntywuv-i-Cysteine] 600 mg PO BID 04/17/18 [History] Tiotropium [Spiriva] 2 puff IH DAILY 05/02/18 [History] Losartan [Cozaar] 50 mg PO DAILY #60 tablet 05/07/18 [Rx] HYDROcodone BIT/Homatropine LQ [Hycodan Syrup] 5 ml PO Q6H PRN 05/19/18 [History ] levoFLOXacin [Levofloxacin] 500 mg PO DAILY 05/19/18 [History] predniSONE [PredniSONE] 10 mg PO DAILY 05/19/18 [History] 3 Allergy/AdvReac Type Severity Reaction Status Date / Time codeine Allergy Rash Verified 05/02/18 15:33 gabapentin Allergy Itching Verified 05/02/18 15:33 All Systems: The remainder of the systems were reviewed and are negative - Constitutional Constitutional: no chills, no fever(s) - EENT Nose, mouth and throat: no nasal congestion, no nasal obstruction, no sore throat - Cardiovascular Cardiovascular: dyspnea, no chest pain, no palpitations, no syncope - Respiratory Respiratory: cough, dyspnea, chest congestion, no hemoptysis, no excessive phlegm production, no change in phlegm color - Gastrointestinal Gastrointestinal: no abdominal pain, no diarrhea, no nausea, no vomiting - Genitourinary Genitourinary: no dysuria - Musculoskeletal Musculoskeletal: no numbness, no tingling - Neurological Neurological: no confusion, no numbness, no tingling - Hematologic/Lymphatic Hematologic/Lymphatic: no easy bleeding, no easy bruising Physical Examination Vital Signs: Vital Signs, Last 4 Hours Resp BP Pulse Ox 05/19/18 10:47 90 05/19/18 10:27 23 165/78 General appearance: no acute distress, other ENT: oropharynx moist Effort: mildly labored Auscultation: left: diminished breath sounds Cardiovascular: regular rate and rhythm, other (2/6 systolic murmur) Gastrointestinal: normoactive bowel sounds, soft, non-tender Extremities: no cyanosis, edema (trace LE) normal mental status, non-focal exam Results - Laboratory Findings CBC and BMP: 05/19/18 08:54 05/19/18 08:54 ABG ABG pH 7.48 pH Units (7.32-7.45) H 05/19/18 08:42 ABG pCO2 38 mmHg (35-45) 05/19/18 08:42 ABG pO2 51 mmHg (85-104) L 05/19/18 08:42 ABG O2 Saturation 88 % (95-98) L 05/19/18 08:42 PT/INR, D-dimer PT 11.3 Seconds (9.4-12.1) 05/19/18 09:46 D-Dimer 1800 ng/mLFEU (0-500) H 05/19/18 09:46 Abnormal lab findings: Abnormal lab results RBC 2.90 M/mcL (3.82-4.97) L 05/19/18 08:54 Hgb 9.4 g/dL (11.5-15.4) L 05/19/18 08:54 Hct 28.4 % (35.3-44.9) L 05/19/18 08:54 RDW 15.9 % (11.5-14.5) H 05/19/18 08:54 D-Dimer 1800 ng/mLFEU (0-500) H 05/19/18 09:46 ABG pH 7.48 pH Units (7.32-7.45) H 05/19/18 08:42 ABG pO2 51 mmHg (85-104) L 05/19/18 08:42 ABG HCO3 28 mEq/L (21-27) H 05/19/18 08:42 ABG Total CO2 30 mEq/L (20-26) H 05/19/18 08:42 ABG O2 Saturation 88 % (95-98) L 05/19/18 08:42 ABG Base Excess 5 mEq/L (-2 to 3) H 05/19/18 08:42 Chloride 96 mEq/L (98-107) L 05/19/18 08:54 BUN 42 mg/dL (8-23) H 05/19/18 08:54 Creatinine 5.54 mg/dL (0.60-1.20) H 05/19/18 08:54 Est GFR ( Amer) 9 (> 60) L 05/19/18 08:54 Est GFR (Non-Af Amer) 7 (> 60) L 05/19/18 08:54 Troponin I 0.04 ng/mL (< 0.04) H* 05/19/18 08:54 B-Natriuretic Peptide 2247 pg/mL (Less than 100) H 05/19/18 08:54 <Jarod Quintana S - Last Filed: 05/19/18 17:02> Date of Encounter: 05/19/18 History of Present Illness HPI: Ms. Carmona is a 77 year old female All Systems: The remainder of the systems were reviewed and are negative Physical Examination Vital Signs: Vital Signs, Last 4 Hours Temp Pulse Resp BP Pulse Ox 05/19/18 16:30 154/65 05/19/18 16:19 97.1 F L 05/19/18 16:15 173/67 05/19/18 16:00 68 18 179/77 100 05/19/18 15:56 16 100 05/19/18 15:45 170/74 05/19/18 15:30 174/74 05/19/18 15:15 173/76 05/19/18 15:00 67 20 171/74 98 05/19/18 14:45 170/77 05/19/18 14:30 172/78 05/19/18 14:15 97.9 F 18 163/78 05/19/18 14:00 68 24 165/76 96 05/19/18 13:00 71 24 156/64 96 Results - Laboratory Findings CBC and BMP: 05/19/18 08:54 05/19/18 08:54 ABG ABG pH 7.48 pH Units (7.32-7.45) H 05/19/18 08:42 ABG pCO2 38 mmHg (35-45) 08 08:42 ABG pO2 51 mmHg (85-104) L 05/19/18 08:42 ABG O2 Saturation 88 % (95-98) L 05/19/18 08:42 PT/INR, D-dimer PT 11.3 Seconds (9.4-12.1) 05/19/18 09:46 D-Dimer 1800 ng/mLFEU (0-500) H 05/19/18 09:46 Abnormal lab findings: Abnormal lab results RBC 2.90 M/mcL (3.82-4.97) L 05/19/18 08:54 Hgb 9.4 g/dL (11.5-15.4) L 05/19/18 08:54 Hct 28.4 % (35.3-44.9) L 05/19/18 08:54 RDW 15.9 % (11.5-14.5) H 05/19/18 08:54 D-Dimer 1800 ng/mLFEU (0-500) H 05/19/18 09:46 ABG pH 7.48 pH Units (7.32-7.45) H 05/19/18 08:42 ABG pO2 51 mmHg (85-104) L 05/19/18 08:42 ABG HCO3 28 mEq/L (21-27) H 05/19/18 08:42 ABG Total CO2 30 mEq/L (20-26) H 05/19/18 08:42 ABG O2 Saturation 88 % (95-98) L 05/19/18 08:42 ABG Base Excess 5 mEq/L (-2 to 3) H 05/19/18 08:42 Chloride 96 mEq/L (98-107) L 05/19/18 08:54 BUN 42 mg/dL (8-23) H 05/19/18 08:54 Creatinine 5.54 mg/dL (0.60-1.20) H 05/19/18 08:54 Est GFR ( Amer) 9 (> 60) L 05/19/18 08:54 Est GFR (Non-Af Amer) 7 (> 60) L 05/19/18 08:54 B-Natriuretic Peptide 2247 pg/mL (Less than 100) H 05/19/18 08:54 - Attending Attestation I saw and evaluated this patient and my medical decision-making was reviewed with the Resident Physician. I agree with the documented findings, disposition and treatment plan as described except to the extent set forth below. We independently had [id number] contact with the patient I spent 40 minutes of Critical Care time with this patient. It involved decision making of high complexity to assess, manipulate, and support vital organ system failure and/or to prevent further life threatening deterioration of the patient's condition. The time involved in the performance of separately reportable procedures was not counted toward critical care time. Patient seen and examined at bedside Labs, radiology, chart personally reviewed. Management was reviewed during multidisciplinary critical care rounds. HOSPITAL ADMITTING CLERK: Patient is conscious oriented 3 Pulm: Patient is acute on chronic hypoxic respiratory failure complicated by recurrent mucus plugging due to his severe tracheal bronchomalacia patient had severe acute hypoxia on chronic respiratory failure and needed BiPAP patient was intubated. Bronchoscopy extensive mucus plugging was found was extensively suctioned and BAL was done samples were sent patient was started on antibiotics based on previous microbiology growth and sensitivity. Cards: Hemodynamically stable FEN-GI: Advance diet as tolerated Renal: End Stage renal disease on dialysis ID: To continue levofloxacin and added vancomycin for previous history of MRSA Heme/Onc: Thromboprophylaxis Endo: Glucose Monitored Integ/MSK: Skin Care per routine ICU Nursing Protocol to prevent ulcers. Lines: All lines examined without evidence of infection : Dispo: To stay in the ICU CODE: Full code
[2018-05-19] MEDS: Acetylcysteine 10% 2 ML INHSOL IH SCH ×4 (11:05→23:53)
[2018-05-19 11:33] LABS: Hepatitis B Surface Antigen Nonreactive (Nonreactive)
[2018-05-19] MEDS ORDERED: Lidocaine Viscous Oral Soln 15 ML SOLUTION ONE (11:49)
[2018-05-19] MEDS: hydrALAZINE 25 MG TABLET PO SCH ×2 (14:04→20:13)
[2018-05-19] MEDS ORDERED: *HR* Succinylcholine 200 MG/10 ML VIAL IVP ONE (14:27)
[2018-05-19] MEDS ORDERED: *HR* Propofol 500 MG/50 ML BOTTLE IVC ONE (14:27)
[2018-05-19] MEDS ORDERED: *HR* Propofol 200 MG/20 ML VIAL IVP ONE (14:27)
[2018-05-19] MEDS ORDERED: Lidocaine 2% Syringe 100 MG/5 ML IV ONE (14:27)
[2018-05-19] MEDS ORDERED: Ondansetron 4 MG/2 ML VIAL IVP ONE (14:27)
[2018-05-19] MEDS ORDERED: Lidocaine -MPF 4% 5 ML AMPUL INFILT ONE (14:27)
[2018-05-19] MEDS: MethylPREDNISolone 40 MG/ML VIAL IVP SCH ×2 (15:08→23:08)
[2018-05-19] MEDS: Ipratropium/Albuterol Neb 3 ML IH SCH ×3 (15:54→23:52)
[2018-05-19] MEDS: *HR* Heparin 5,000 UNIT/ML VIAL SQ SCH (16:41)
--- NOTE | 2018-05-19 17:41 | Electrocardiograph Report ---
[place] [id number] Test Date: 2018-05-19 Pat Name: Monisha Carmona Department: 102 Room: [facility] Gender: F Assistant Food Service Manager: : 1940 Requested By: Miriam Jim Order Number: [id number] Reading MD: Ellie Garcia Measurements Intervals [place] Rate: 70 P: 58 [place]: 215 QRS: -20 QRSD: 84 T: 72 QT: 394 QTc: 414 Interpretive Statements SINUS RHYTHM LEFT ATRIAL ENLARGEMENT [-0.15mV P WAVE IN V1/V2] Electronically Signed On 05-19-2018 17:39:18 EDT by Ellie Garcia
[2018-05-19] MEDS ORDERED: Furosemide 20 MG TABLET PO SCH (18:00)
[2018-05-19] MEDS: Budesonide/Formoterol 160/4.5 1 PUFF INH IH SCH (20:04)
[2018-05-19] MEDS: Pregabalin 50 MG CAPSULE PO SCH (20:13)
[2018-05-19] MEDS: amLODIPine 5 MG TABLET PO SCH (20:13)
[2018-05-20] MEDS: Ipratropium/Albuterol Neb 3 ML IH SCH ×6 (04:06→23:17)
[2018-05-20] MEDS: Acetylcysteine 10% 2 ML INHSOL IH SCH ×2 (04:07→08:02)
[2018-05-20 04:10] LABS: Hematocrit 24.5 % (35.3-44.9); Hemoglobin 8.3 g/dL (11.5-15.4); Immature Granulocytes % 0.3 % (0-4); Lymphocytes # 0.1 K/mcL (0.6-4.6); Lymphocytes % 3.3 %; Mean Corpuscular HGB Conc 33.9 g/dL (31.6-35.5); Mean Corpuscular Hemoglobin 32.9 pg (28.0-33.3); Mean Corpuscular Volume 97.2 fL (83.0-100.0); Mean Platelet Volume 10.3 fL (9.4-12.4); Monocytes # 0.2 K/mcL (0.0-1.3); Monocytes % 4.7 %; Neutrophils # 3.4 K/mcL (1.6-8.9); Platelet Count 111 K/mcL (140-400); Red Blood Count 2.52 M/mcL (3.82-4.97); Red Cell Distribution Width 16.2 % (11.5-14.5); Segmented Neutrophils % 91.7 %
[2018-05-20 04:27] LABS: Calcium 9.3 mg/dL (8.6-10.3); Potassium 4.1 mEq/L (3.5-5.1)
[2018-05-20 04:54] LABS: Anisocytosis 1+ (Not Present); Platelet Estimate Slight Decrease (Normal)
[2018-05-20] MEDS: *HR* Heparin 5,000 UNIT/ML VIAL SQ SCH ×2 (06:06→17:30)
[2018-05-20] MEDS: Budesonide/Formoterol 160/4.5 1 PUFF INH IH SCH ×2 (08:03→19:27)
[2018-05-20] MEDS: hydrALAZINE 25 MG TABLET PO SCH ×3 (08:35→20:08)
[2018-05-20] MEDS: amLODIPine 5 MG TABLET PO SCH ×2 (08:35→20:02)
[2018-05-20] MEDS: MethylPREDNISolone 40 MG/ML VIAL IVP SCH ×3 (08:35→23:10)
[2018-05-20] MEDS: Pregabalin 50 MG CAPSULE PO SCH ×2 (08:36→20:02)
[2018-05-20] MEDS ORDERED: 0.9 % Sodium Chloride 250 ML IVC PRN ×2 (08:45→13:21)
[2018-05-20] MEDS ORDERED: Aminoglycoside Consult 1 EACH MC ONE (08:53)
[2018-05-20] MEDS ORDERED: Furosemide 40 MG TABLET PO SCH (09:00)
[2018-05-20] MEDS ORDERED: Aspirin 81 MG TAB.CHEW PO SCH (09:00)
[2018-05-20] MEDS ORDERED: *HR* Acetylcysteine 20% 600 MG/3 ML ORAL SYRINGE PO SCH (09:00)
[2018-05-20] MEDS ORDERED: Loratadine 10 MG TABLET PO SCH (09:00)
[2018-05-20] MEDS ORDERED: Metoprolol XL (24 HR) Succ 50 MG TAB.ER.24H PO SCH (09:00)
[2018-05-20] MEDS ORDERED: 0.9 % Sodium Chloride 1,000 ML ONE (09:01)
--- NOTE | 2018-05-20 10:23 | Nephrology Progress Note ---
Date of Encounter: 05/20/18 Time of Encounter: 10:00 - Assessment and Plan (1) End stage renal disease on dialysis Current Visit: Yes Status: Chronic She completed her HD yesterday. She described a dialysis vintage of about 3.5 yr with hx of left nephrectomy for renal donation decades ago for her now sister and hx of prior heavy NSAID use. She described that she feels far above her dry weight, so will arrange for UF today to challenge her dry weight. She also reported that her phos binders are only two tablets with meals, which I 'll fix in her orders. (2) Hypertension Current Visit: No Status: Chronic Continue chronic meds. Qualifiers: Hypertension type: essential hypertension Qualified Code(s): I10 - Essential (primary) hypertension (3) Peripheral edema Current Visit: Yes Status: Acute See above: UF today (Tuesday). (4) Hyperphosphatemia Current Visit: Yes Status: Chronic See above. Correcting her Renvela to her current dosing of 2tab po qAC. Goal serum Phos in ESRD is 3.5-5.5 (5) COPD (chronic obstructive pulmonary disease) Current Visit: Yes Status: Chronic Qualifiers: COPD type: unspecified COPD Qualified Code(s): J44.9 - Chronic obstructive pulmonary disease, unspecified (6) Acute and chronic respiratory failure with hypoxia Current Visit: Yes Status: Acute Subjective Principal diagnosis: ESRD Interval history: Pt was seen/examined in the ICU. She said that she typically takes Renvela two tablets with meals. She voiced that she feels more swelling than typical. She typically dialyzes at the dialysis unit of Dr. Anthony. Objective - Vital Signs Vital signs: Vital Signs Temp Pulse Resp BP Pulse Ox 05/20/18 09:00 92 16 149/64 100 05/20/18 08:04 16 99 05/20/18 08:00 87 16 113/48 99 05/20/18 07:15 98.7 F 05/20/18 07:00 88 05/20/18 06:00 78 17 132/55 100 05/20/18 05:00 87 17 135/62 97 05/20/18 04:36 97.7 F 05/20/18 04:07 17 97 05/20/18 04:00 79 14 116/52 98 05/20/18 03:00 87 16 103/42 98 05/20/18 02:05 87 16 104/46 97 05/20/18 01:00 92 18 119/49 96 05/20/18 00:13 98.4 F 05/20/18 00:00 92 15 127/86 96 05/19/18 23:53 16 97 05/19/18 23:00 93 16 129/78 96 05/19/18 22:00 94 15 118/54 96 05/19/18 21:14 94 17 131/58 96 05/19/18 20:00 87 16 156/61 100 05/19/18 19:57 18 156/61 95 05/19/18 19:00 77 17 135/57 97 05/19/18 18:48 98.3 F 05/19/18 18:05 97.1 F L 18 161/71 05/19/18 18:00 77 20 145/69 95 05/19/18 17:45 145/69 05/19/18 17:30 155/77 05/19/18 17:15 142/74 05/19/18 17:00 79 20 131/72 97 05/19/18 16:45 164/73 05/19/18 16:30 154/65 05/19/18 16:19 97.1 F L 05/19/18 16:15 173/67 05/19/18 16:00 68 18 179/77 100 05/19/18 15:56 16 100 05/19/18 15:45 170/74 05/19/18 15:30 174/74 05/19/18 15:15 173/76 05/19/18 15:00 67 20 171/74 98 05/19/18 14:45 170/77 05/19/18 14:30 172/78 05/19/18 14:15 97.9 F 18 163/78 05/19/18 14:00 68 24 165/76 96 05/19/18 13:00 71 24 156/64 96 05/19/18 11:05 32 162/83 93 05/19/18 11:00 98.2 F 74 31 162/83 94 05/19/18 10:47 90 05/19/18 10:27 23 165/78 Intake and Output 05/19/18 05/20/18 05/20/18 23:59 07:59 15:59 Intake Total 1050 / 1050 0 / 0 Output Total 3600 / 3600 0 / 0 Balance -2550 / -2550 0 / 0 Intake: IV Fluids 250 / 250 Vancocin 1,000 MG In 0.9 % 250 / 250 Sodium Chloride 250 ML @ 167 mls/hr IVPB ONCE ONE Rx#: [id number] Oral 800 / 800 0 / 0 Output: Urine 0 / 0 0 / 0 Total Dialysis (HD) Output 3600 / 3600 Other: Meal Dinner Percent of Meal Consumed 100% Weight 65 kg Hemodialysis Net Fluid Removed 3000 (mL) Patient Weight 05/20/18 23:59 Weight 65 kg - General Appearance Exam: General appearance: well-developed, well-nourished EENT: ATNC, mucous membranes moist, hearing intact, vision intact Neck: supple Respiratory: course breath sounds, rhonchi Cardiology: edema, normal S1, normal S2 - Dialysis Access Dialysis Vascular Access: Arteriovenous Fistula thrill: Yes bruit: Yes Gastrointestinal: no tenderness, no guarding Integumentary: warm and dry Neurologic: alert and oriented x3 Psychiatric: mood/affect appropriate, cooperative - Lab 05/20/18 03:30 05/20/18 03:30 Most recent lab results ABG pH 7.48 pH Units (7.32-7.45) H 05/19/18 08:42 ABG pCO2 38 mmHg (35-45) 05/19/18 08:42 ABG pO2 51 mmHg (85-104) L 05/19/18 08:42 ABG HCO3 28 mEq/L (21-27) H 05/19/18 08:42 ABG O2 Saturation 88 % (95-98) L 05/19/18 08:42 Calcium 9.3 mg/dL (8.6-10.3) 05/20/18 03:30 Magnesium 2.0 mg/dL (1.6-2.6) 05/20/18 03:30 Consult Discharge Plan - Plan Referrals: Vladimir Chaidez MD [Primary Care Provider] -
--- NOTE | 2018-05-20 10:46 | Pulmonology Progress Note ---
Date of Encounter: 05/20/18 Time of Encounter: 08:30 Assessment and Plan (1) Mucus plugging of bronchi Current Visit: No Status: Chronic Patient has this recurrent mucus plugging because of this thick tenacious secretion an top of that she has tracheobronchomalacia more of bronchomalacia. She could not get approved for breast therapy as an outpatient which might help. Patient this is the third bronchoscopy within this last few months. I started her on chronic prednisone therapy as an outpatient , she will need Tuesday, Tuesday, Tuesday azithromycin is more for an anti-inflammatory effect than an antibiotic effect. We will need to work on getting Vest therapy for her that might help but my concern is the secretions is so thick she could not bring it out, the one the long-term solution will be a tracheostomy which will help in bronchopulmonary toileting and discussed abut this with the patient she is not very keen about the long-term option. I told her the times she comes to ER with so much hypoxia she might end up in cardiopulmonary arrest on the Route to the hospital. Patient verbalized understanding. (2) Collapse of left lung Current Visit: No Status: Acute Due to mucus plugging to the bronchoscopy with extensive bronchopulmonary toileting after bronchoscopy the VQ mismatch and throat she is back to her baseline oxygen requirements and her chest x-ray improved. (3) Acute and chronic respiratory failure with hypoxia Current Visit: Yes Status: Acute Patient gets this acute on chronic hypoxic respiratory failure is contributed by recurrent mucus plugging and she also having diastolic dysfunction with end- stage renal disease and hydrostatic pulmonary edema component also makes it worse and more complicated. (4) COPD (chronic obstructive pulmonary disease) Current Visit: Yes Status: Chronic Continue bronchodilators, steroids patient should go on a 21 day steroid taper to her chronic prednisone 10 mg dose will see her in 2 weeks in the office. Qualifiers: COPD type: unspecified COPD Qualified Code(s): J44.9 - Chronic obstructive pulmonary disease, unspecified Subjective Principal diagnosis: recurrent mucus plugging of bronchus Interval history: Patient is doing well sitting in the bed had a good night patient says her breathing is lot better. Objective PUL Vital signs: Last Vital Signs Temp 98.7 F 05/20/18 07:15 Pulse 94 05/20/18 10:00 Resp 18 05/20/18 10:00 BP 103/37 05/20/18 10:00 Pulse Ox 98 05/20/18 10:00 Auscultation: left: diminished breath sounds (basilar diminished ) Results - Laboratory Findings CBC and BMP: 05/20/18 03:30 05/20/18 03:30 ABG ABG pH 7.48 pH Units (7.32-7.45) H 05/19/18 08:42 ABG pCO2 38 mmHg (35-45) 05/19/18 08:42 ABG pO2 51 mmHg (85-104) L 05/19/18 08:42 ABG O2 Saturation 88 % (95-98) L 05/19/18 08:42 PT/INR, D-dimer PT 11.3 Seconds (9.4-12.1) 05/19/18 09:46 D-Dimer 1800 ng/mLFEU (0-500) H 05/19/18 09:46 Abnormal lab findings: Abnormal lab results WBC 3.7 K/mcL (4.3-11.1) L 05/20/18 03:30 RBC 2.52 M/mcL (3.82-4.97) L 05/20/18 03:30 Hgb 8.3 g/dL (11.5-15.4) L 05/20/18 03:30 Hct 24.5 % (35.3-44.9) L 05/20/18 03:30 RDW 16.2 % (11.5-14.5) H 05/20/18 03:30 Plt Count 111 K/mcL (140-400) L 05/20/18 03:30 Lymphocytes # 0.1 K/mcL (0.6-4.6) L 05/20/18 03:30 Platelet Estimate Slight Decrease (Normal) L 05/20/18 03:30 Anisocytosis 1+ (Not Present) A 05/20/18 03:30 D-Dimer 1800 ng/mLFEU (0-500) H 05/19/18 09:46 ABG pH 7.48 pH Units (7.32-7.45) H 05/19/18 08:42 ABG pO2 51 mmHg (85-104) L 05/19/18 08:42 ABG HCO3 28 mEq/L (21-27) H 05/19/18 08:42 ABG Total CO2 30 mEq/L (20-26) H 05/19/18 08:42 ABG O2 Saturation 88 % (95-98) L 05/19/18 08:42 ABG Base Excess 5 mEq/L (-2 to 3) H 05/19/18 08:42 Chloride 95 mEq/L (98-107) L 05/20/18 03:30 Carbon Dioxide 36 mEq/L (23-29) H 05/20/18 03:30 BUN 24 mg/dL (8-23) H 05/20/18 03:30 Creatinine 3.29 mg/dL (0.60-1.20) H 05/20/18 03:30 Est GFR ( Amer) 17 (> 60) L 05/20/18 03:30 Est GFR (Non-Af Amer) 14 (> 60) L 05/20/18 03:30 Glucose 143 mg/dL (70-105) H 05/20/18 03:30 B-Natriuretic Peptide 2247 pg/mL (Less than 100) H 05/19/18 08:54 - Clinical Findings Intake & Output: Intake & Output 05/19/18 05/20/18 05/20/18 23:59 07:59 15:59 Intake Total 1050 / 1050 0 / 0 Output Total 3600 / 3600 0 / 0 Balance -2550 / -2550 0 / 0 Weight 65 kg Consult Discharge Plan - Plan Referrals: Vladimir Chaidez MD [Primary Care Provider] -
[2018-05-20] MEDS ORDERED: Naloxone 0.4 MG/ML INJ IVP PRN (13:21)
[2018-05-20] MEDS: *HR* Acetylcysteine 20% 600 MG/3 ML ORAL SYRINGE PO SCH (20:06)
[2018-05-21] MEDS: Ipratropium/Albuterol Neb 3 ML IH SCH ×6 (03:42→23:54)
[2018-05-21 03:54] LABS: Hematocrit 25.3 % (35.3-44.9); Hemoglobin 8.2 g/dL (11.5-15.4); Mean Corpuscular HGB Conc 32.4 g/dL (31.6-35.5); Mean Corpuscular Hemoglobin 32.2 pg (28.0-33.3); Mean Corpuscular Volume 99.2 fL (83.0-100.0); Mean Platelet Volume 9.7 fL (9.4-12.4); Platelet Count 103 K/mcL (140-400); Red Blood Count 2.55 M/mcL (3.82-4.97); Red Cell Distribution Width 16.3 % (11.5-14.5)
[2018-05-21 04:17] LABS: Calcium 9.5 mg/dL (8.6-10.3); Potassium 5.3 mEq/L (3.5-5.1)
[2018-05-21] MEDS: *HR* Heparin 5,000 UNIT/ML VIAL SQ SCH ×2 (06:10→17:15)
[2018-05-21 07:40] LABS: Source of Body Fluid LUL BAL
[2018-05-21] MEDS: Budesonide/Formoterol 160/4.5 1 PUFF INH IH SCH ×2 (07:51→20:03)
[2018-05-21] MEDS: *HR* Acetylcysteine 20% 600 MG/3 ML ORAL SYRINGE PO SCH (08:28)
[2018-05-21] MEDS: amLODIPine 5 MG TABLET PO SCH (08:30)
[2018-05-21] MEDS: hydrALAZINE 25 MG TABLET PO SCH ×2 (08:30→15:24)
[2018-05-21] MEDS: Loratadine 10 MG TABLET PO SCH (08:30)
[2018-05-21] MEDS: Metoprolol XL (24 HR) Succ 50 MG TAB.ER.24H PO SCH (08:31)
[2018-05-21] MEDS: Aspirin 81 MG TAB.CHEW PO SCH (08:31)
[2018-05-21] MEDS: Pregabalin 50 MG CAPSULE PO SCH ×2 (08:31→21:02)
[2018-05-21] MEDS: MethylPREDNISolone 40 MG/ML VIAL IVP SCH ×2 (08:33→15:24)
[2018-05-21 08:45] LABS: Appearance of Body Fluid Clear (Clear); Volume of Body Fluid 10 mL
--- NOTE | 2018-05-21 09:20 | Pulmonology Progress Note ---
Date of Encounter: 05/21/18 Time of Encounter: 08:00 Assessment and Plan (1) Mucus plugging of bronchi Current Visit: No Status: Chronic Patient has this recurrent mucus plugging because of this thick tenacious secretion an top of that she has tracheobronchomalacia more of bronchomalacia. She could not get approved for breast therapy as an outpatient which might help. Patient this is the third bronchoscopy within this last few months. I started her on chronic prednisone therapy as an outpatient , she will need Tuesday, Tuesday, Tuesday azithromycin is more for an anti-inflammatory effect than an antibiotic effect. We will need to work on getting Vest therapy for her that might help but my concern is the secretions is so thick she could not bring it out, the one the long-term solution will be a tracheostomy which will help in bronchopulmonary toileting and discussed abut this with the patient she is not very keen about the long-term option. I told her the times she comes to ER with so much hypoxia she might end up in cardiopulmonary arrest on the Route to the hospital. Patient verbalized understanding. 05/21 To continue antibiotics will stop Vancomycin to continue Levaquin till the C/S comes back will do ID consult before discharge on levaquin she is getting the recurrent bouts of mucus plugging to address the question whether she will benefit from. (2) Collapse of left lung Current Visit: No Status: Acute Due to mucus plugging to the bronchoscopy with extensive bronchopulmonary toileting after bronchoscopy the VQ mismatch and throat she is back to her baseline oxygen requirements and her chest x-ray improved. (3) Acute and chronic respiratory failure with hypoxia Current Visit: Yes Status: Acute Patient gets this acute on chronic hypoxic respiratory failure is contributed by recurrent mucus plugging and she also having diastolic dysfunction with end- stage renal disease and hydrostatic pulmonary edema component also makes it worse and more complicated. (4) COPD (chronic obstructive pulmonary disease) Current Visit: Yes Status: Chronic Continue bronchodilators, steroids patient should go on a 21 day steroid taper to her chronic prednisone 10 mg dose will see her in 2 weeks in the office. Qualifiers: COPD type: unspecified COPD Qualified Code(s): J44.9 - Chronic obstructive pulmonary disease, unspecified Subjective Principal diagnosis: ESRD Interval history: Patient is doing well sitting in the bed had a good night patient says her breathing is lot better. Not much coughing with sputum production . Objective PUL Vital signs: Last Vital Signs Temp 97.9 F 05/21/18 08:00 Pulse 75 05/21/18 08:00 Resp 18 05/21/18 08:00 BP 142/56 05/21/18 08:00 Pulse Ox 98 05/21/18 08:00 Auscultation: left: diminished breath sounds (diminished at the bases ) Results - Laboratory Findings CBC and BMP: 05/21/18 03:35 05/21/18 03:35 ABG ABG pH 7.48 pH Units (7.32-7.45) H 05/19/18 08:42 ABG pCO2 38 mmHg (35-45) 05/19/18 08:42 ABG pO2 51 mmHg (85-104) L 05/19/18 08:42 ABG O2 Saturation 88 % (95-98) L 05/19/18 08:42 PT/INR, D-dimer PT 11.3 Seconds (9.4-12.1) 05/19/18 09:46 D-Dimer 1800 ng/mLFEU (0-500) H 05/19/18 09:46 Abnormal lab findings: Abnormal lab results RBC 2.55 M/mcL (3.82-4.97) L 05/21/18 03:35 Hgb 8.2 g/dL (11.5-15.4) L 05/21/18 03:35 Hct 25.3 % (35.3-44.9) L 05/21/18 03:35 RDW 16.3 % (11.5-14.5) H 05/21/18 03:35 Plt Count 103 K/mcL (140-400) L 05/21/18 03:35 Lymphocytes # 0.1 K/mcL (0.6-4.6) L 05/20/18 03:30 Platelet Estimate Slight Decrease (Normal) L 05/20/18 03:30 Anisocytosis 1+ (Not Present) A 05/20/18 03:30 D-Dimer 1800 ng/mLFEU (0-500) H 05/19/18 09:46 ABG pH 7.48 pH Units (7.32-7.45) H 05/19/18 08:42 ABG pO2 51 mmHg (85-104) L 05/19/18 08:42 ABG HCO3 28 mEq/L (21-27) H 05/19/18 08:42 ABG Total CO2 30 mEq/L (20-26) H 05/19/18 08:42 ABG O2 Saturation 88 % (95-98) L 05/19/18 08:42 ABG Base Excess 5 mEq/L (-2 to 3) H 05/19/18 08:42 Sodium 135 mEq/L (136-145) L 05/21/18 03:35 Potassium 5.3 mEq/L (3.5-5.1) H 05/21/18 03:35 Chloride 94 mEq/L (98-107) L 05/21/18 03:35 Carbon Dioxide 32 mEq/L (23-29) H 05/21/18 03:35 BUN 53 mg/dL (8-23) H 05/21/18 03:35 Creatinine 5.34 mg/dL (0.60-1.20) H 05/21/18 03:35 Est GFR ( Amer) 9 (> 60) L 05/21/18 03:35 Est GFR (Non-Af Amer) 8 (> 60) L 05/21/18 03:35 Glucose 165 mg/dL (70-105) H 05/21/18 03:35 B-Natriuretic Peptide 2247 pg/mL (Less than 100) H 05/19/18 08:54 - Microbiology Findings Microbiology Findings: Microbiology, Last 48 Hours 05/19/18 Unknown Respiratory Culture - Preliminary Left Upper Lobe Lung - Clinical Findings Intake & Output: Intake & Output 05/20/18 05/21/18 05/21/18 23:59 07:59 15:59 Intake Total 450 / 450 300 / 300 Output Total 3100 / 3100 0 / 0 Balance -2650 / -2650 300 / 300 Weight 66.2 kg Consult Discharge Plan - Plan Referrals: Vladimir Chaidez MD [Primary Care Provider] -
[2018-05-21] MEDS ORDERED: Levofloxacin 500 MG/100 ML 500 MG/100 ML BAG IVPB SCH ×2 (16:00)
[2018-05-22] MEDS: amLODIPine 5 MG TABLET PO SCH ×3 (00:06→21:56)
[2018-05-22] MEDS: hydrALAZINE 25 MG TABLET PO SCH ×4 (00:06→21:52)
[2018-05-22] MEDS: Ipratropium/Albuterol Neb 3 ML IH SCH ×3 (04:06→11:28)
[2018-05-22 04:24] LABS: Hematocrit 25.1 % (35.3-44.9); Hemoglobin 8.3 g/dL (11.5-15.4); Mean Corpuscular HGB Conc 33.1 g/dL (31.6-35.5); Mean Corpuscular Hemoglobin 31.7 pg (28.0-33.3); Mean Corpuscular Volume 95.8 fL (83.0-100.0); Mean Platelet Volume 10.2 fL (9.4-12.4); Platelet Count 124 K/mcL (140-400); Red Blood Count 2.62 M/mcL (3.82-4.97); Red Cell Distribution Width 16.1 % (11.5-14.5)
[2018-05-22 04:48] LABS: Calcium 9.5 mg/dL (8.6-10.3)
[2018-05-22] MEDS: *HR* Heparin 5,000 UNIT/ML VIAL SQ SCH ×2 (05:50→16:34)
[2018-05-22] MEDS ORDERED: 0.9 % Sodium Chloride 250 ML IVC PRN (07:16)
[2018-05-22] MEDS: Budesonide/Formoterol 160/4.5 1 PUFF INH IH SCH ×2 (07:37→23:10)
[2018-05-22] MEDS ORDERED: 0.9 % Sodium Chloride 1,000 ML ONE (07:49)
[2018-05-22] MEDS: Metoprolol XL (24 HR) Succ 50 MG TAB.ER.24H PO SCH (08:11)
[2018-05-22] MEDS: Pregabalin 50 MG CAPSULE PO SCH ×2 (08:11→21:56)
[2018-05-22] MEDS: Aspirin 81 MG TAB.CHEW PO SCH (08:11)
[2018-05-22] MEDS: Loratadine 10 MG TABLET PO SCH (08:11)
--- NOTE | 2018-05-22 08:11 | Pulmonology Progress Note ---
Date of Encounter: 05/22/18 Subjective Principal diagnosis: ESRD Objective PUL Vital signs: Last Vital Signs Temp 97.8 F 05/22/18 08:07 Pulse 70 05/22/18 08:07 Resp 16 05/22/18 08:07 BP 145/71 05/22/18 08:07 Pulse Ox 96 05/22/18 08:07 Results - Laboratory Findings CBC and BMP: 05/22/18 03:53 05/22/18 03:53 ABG ABG pH 7.48 pH Units (7.32-7.45) H 05/19/18 08:42 ABG pCO2 38 mmHg (35-45) 05/19/18 08:42 ABG pO2 51 mmHg (85-104) L 05/19/18 08:42 ABG O2 Saturation 88 % (95-98) L 05/19/18 08:42 PT/INR, D-dimer PT 11.3 Seconds (9.4-12.1) 05/19/18 09:46 D-Dimer 1800 ng/mLFEU (0-500) H 05/19/18 09:46 Abnormal lab findings: Abnormal lab results RBC 2.62 M/mcL (3.82-4.97) L 05/22/18 03:53 Hgb 8.3 g/dL (11.5-15.4) L 05/22/18 03:53 Hct 25.1 % (35.3-44.9) L 05/22/18 03:53 RDW 16.1 % (11.5-14.5) H 05/22/18 03:53 Plt Count 124 K/mcL (140-400) L 05/22/18 03:53 Lymphocytes # 0.1 K/mcL (0.6-4.6) L 05/20/18 03:30 Platelet Estimate Slight Decrease (Normal) L 05/20/18 03:30 Anisocytosis 1+ (Not Present) A 05/20/18 03:30 D-Dimer 1800 ng/mLFEU (0-500) H 05/19/18 09:46 ABG pH 7.48 pH Units (7.32-7.45) H 05/19/18 08:42 ABG pO2 51 mmHg (85-104) L 05/19/18 08:42 ABG HCO3 28 mEq/L (21-27) H 05/19/18 08:42 ABG Total CO2 30 mEq/L (20-26) H 05/19/18 08:42 ABG O2 Saturation 88 % (95-98) L 05/19/18 08:42 ABG Base Excess 5 mEq/L (-2 to 3) H 05/19/18 08:42 Sodium 130 mEq/L (136-145) L 05/22/18 03:53 Potassium 6.0 mEq/L (3.5-5.1) H 05/22/18 03:53 Chloride 90 mEq/L (98-107) L 05/22/18 03:53 Carbon Dioxide 30 mEq/L (23-29) H 05/22/18 03:53 BUN 81 mg/dL (8-23) H 05/22/18 03:53 Creatinine 6.90 mg/dL (0.60-1.20) H 05/22/18 03:53 Est GFR ( Amer) 7 (> 60) L 05/22/18 03:53 Est GFR (Non-Af Amer) 6 (> 60) L 05/22/18 03:53 Glucose 145 mg/dL (70-105) H 05/22/18 03:53 B-Natriuretic Peptide 2247 pg/mL (Less than 100) H 05/19/18 08:54 - Microbiology Findings Microbiology Findings: Microbiology, Last 48 Hours 05/19/18 Unknown Respiratory Culture - Preliminary Left Upper Lobe Lung No growth. - Clinical Findings Intake & Output: Intake & Output 05/21/18 05/22/18 05/22/18 23:59 07:59 15:59 Intake Total 200 / 200 Balance 200 / 200 Weight 67.1 kg Consult Discharge Plan - Plan Referrals: Vladimir Chaidez MD [Primary Care Provider] -
[2018-05-22] MEDS: MethylPREDNISolone 40 MG/ML VIAL IVP SCH ×2 (08:12)
[2018-05-22] MEDS: *HR* Acetylcysteine 20% 600 MG/3 ML ORAL SYRINGE PO SCH ×2 (08:12)
--- NOTE | 2018-05-22 09:28 | Pulmonology Progress Note ---
<CliftonDelon W - Last Filed: 05/22/18 11:56> Date of Encounter: 05/22/18 Objective PUL Vital signs: Last Vital Signs Temp 97.5 F L 05/22/18 09:50 Pulse 70 05/22/18 08:07 Resp 17 05/22/18 09:50 BP 140/56 05/22/18 11:20 Pulse Ox 96 05/22/18 08:07 Results - Laboratory Findings CBC and BMP: 05/22/18 03:53 05/22/18 03:53 ABG ABG pH 7.48 pH Units (7.32-7.45) H 05/19/18 08:42 ABG pCO2 38 mmHg (35-45) 05/19/18 08:42 ABG pO2 51 mmHg (85-104) L 05/19/18 08:42 ABG O2 Saturation 88 % (95-98) L 05/19/18 08:42 PT/INR, D-dimer PT 11.3 Seconds (9.4-12.1) 05/19/18 09:46 D-Dimer 1800 ng/mLFEU (0-500) H 05/19/18 09:46 Abnormal lab findings: Abnormal lab results RBC 2.62 M/mcL (3.82-4.97) L 05/22/18 03:53 Hgb 8.3 g/dL (11.5-15.4) L 05/22/18 03:53 Hct 25.1 % (35.3-44.9) L 05/22/18 03:53 RDW 16.1 % (11.5-14.5) H 05/22/18 03:53 Plt Count 124 K/mcL (140-400) L 05/22/18 03:53 Lymphocytes # 0.1 K/mcL (0.6-4.6) L 05/20/18 03:30 Platelet Estimate Slight Decrease (Normal) L 05/20/18 03:30 Anisocytosis 1+ (Not Present) A 05/20/18 03:30 D-Dimer 1800 ng/mLFEU (0-500) H 05/19/18 09:46 ABG pH 7.48 pH Units (7.32-7.45) H 05/19/18 08:42 ABG pO2 51 mmHg (85-104) L 05/19/18 08:42 ABG HCO3 28 mEq/L (21-27) H 05/19/18 08:42 ABG Total CO2 30 mEq/L (20-26) H 05/19/18 08:42 ABG O2 Saturation 88 % (95-98) L 05/19/18 08:42 ABG Base Excess 5 mEq/L (-2 to 3) H 05/19/18 08:42 Sodium 130 mEq/L (136-145) L 05/22/18 03:53 Potassium 6.0 mEq/L (3.5-5.1) H 05/22/18 03:53 Chloride 90 mEq/L (98-107) L 05/22/18 03:53 Carbon Dioxide 30 mEq/L (23-29) H 05/22/18 03:53 BUN 81 mg/dL (8-23) H 05/22/18 03:53 Creatinine 6.90 mg/dL (0.60-1.20) H 05/22/18 03:53 Est GFR ( Amer) 7 (> 60) L 05/22/18 03:53 Est GFR (Non-Af Amer) 6 (> 60) L 05/22/18 03:53 Glucose 145 mg/dL (70-105) H 05/22/18 03:53 B-Natriuretic Peptide 2247 pg/mL (Less than 100) H 05/19/18 08:54 - Microbiology Findings Microbiology Findings: Microbiology, Last 48 Hours 05/19/18 Unknown Respiratory Culture - Preliminary Left Upper Lobe Lung No growth. - Clinical Findings Intake & Output: Intake & Output 05/21/18 05/22/18 05/22/18 23:59 07:59 15:59 Intake Total 200 / 200 660 / 660 Output Total 0 / 0 Balance 200 / 200 660 / 660 Weight 67.1 kg Consult Discharge Plan - Plan Referrals: Vladimir Chaidez MD [Primary Care Provider] - - Attending Attestation I examined this patient and my medical decision-making was reviewed with the Resident Physician. I agree with the documented findings, disposition and treatment plan as described except to the extent set forth below. We independently had [id number] contact with the patient Patient seen and examined at bedside Labs, radiology, chart personally reviewed. 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 plugging of bronchi COPD History of stenotrophomonas infection Recs: We will follow cultures from bronchial no indication for systemic antibiotics at this time would start every other day azithromycin 500 mg Start inhaled hypertonic saline as well as continuation of inhaled N- acetylcysteine cont low dose chronic prednisone Aggressive bronchopulmonary toileting Stop ipratropium continue albuterol Follow-up with infectious disease for possible continuation of treatment of stenotrophomonas although cultures from bronchoscopy 2 have not suggested this Follow-up outpatient pulmonary <Keegan Malave - Last Filed: 05/22/18 13:02> Date of Encounter: 05/22/18 Time of Encounter: 09:25 Assessment and Plan (1) Mucus plugging of bronchi Current Visit: No Status: Chronic Recurrent issue for the patient is been bronched several times in the past for hypoxia due to mucous plugging of the left lung. Patient underwent bronchoscopy shortly after admission which greatly relieved to mucus plugging. Patient has failed several outpatient therapies, will use inhaled N- acetylcysteine, inhaled hypertonic saline, albuterol 3 times a day with Acapella treatments. Discontinue ipratropium. Follow-up with infectious disease. We will start azithromycin 500 mg every other day present therapy and anti-inflammatory effect, transition to oral prednisone, recommend taper back to 10 mg dose. Close outpatient pulmonary follow-up. (2) Collapse of left lung Current Visit: No Status: Acute Secondary to mucous plugging requiring bronchoscopy. Aeration much improved status post bronchoscopy. She is back to her baseline oxygen requirement with bilateral breath sounds. Social work has been consulted to aid in possible percussion vest to improve mucous clearance and prevent readmissions for recurrent mucous plugging (3) Acute and chronic respiratory failure with hypoxia Current Visit: Yes Status: Acute Stable at this time. Acute component likely due to mucous plugging and worsening of her VQ mismatch requiring increased oxygen and positive pressure ventilation. Patient is back on her home O2 dose and otherwise stable. (4) Acute exacerbation of chronic obstructive pulmonary disease (COPD) Current Visit: No Status: Acute Continue bronchodilators and transition to oral prednisone 40 mg daily with an extended 21 day taper down to her home dose of 10 mg daily. Subjective Principal diagnosis: Mucus plugging, hypoxia Interval history: Patient seen and examined at bedside. Patient states that she continues to feel better today. She denies any shortness of breath, cough, sputum production , fever, chills. She has not required BiPAP overnight. Objective PUL Vital signs: Last Vital Signs Temp 97.8 F 05/22/18 08:07 Pulse 70 05/22/18 08:07 Resp 16 05/22/18 08:07 BP 145/71 05/22/18 08:07 Pulse Ox 96 05/22/18 08:07 General appearance: no acute distress ENT: oropharynx moist Neck: supple Effort: normal Auscultation: left: diminished breath sounds, right: clear Cardiovascular: regular rate and rhythm Gastrointestinal: normoactive bowel sounds, soft, non-tender Extremities: no cyanosis, edema (1+ LE edema), other (Left upper extremity fistula with positive thrill and positive bruit) normal mental status, non-focal exam Results - Laboratory Findings CBC and BMP: 05/22/18 03:53 05/22/18 03:53 ABG ABG pH 7.48 pH Units (7.32-7.45) H 05/19/18 08:42 ABG pCO2 38 mmHg (35-45) 05/19/18 08:42 ABG pO2 51 mmHg (85-104) L 05/19/18 08:42 ABG O2 Saturation 88 % (95-98) L 05/19/18 08:42 PT/INR, D-dimer PT 11.3 Seconds (9.4-12.1) 05/19/18 09:46 D-Dimer 1800 ng/mLFEU (0-500) H 05/19/18 09:46 Abnormal lab findings: Abnormal lab results RBC 2.62 M/mcL (3.82-4.97) L 05/22/18 03:53 Hgb 8.3 g/dL (11.5-15.4) L 05/22/18 03:53 Hct 25.1 % (35.3-44.9) L 05/22/18 03:53 RDW 16.1 % (11.5-14.5) H 05/22/18 03:53 Plt Count 124 K/mcL (140-400) L 05/22/18 03:53 Lymphocytes # 0.1 K/mcL (0.6-4.6) L 05/20/18 03:30 Platelet Estimate Slight Decrease (Normal) L 05/20/18 03:30 Anisocytosis 1+ (Not Present) A 05/20/18 03:30 D-Dimer 1800 ng/mLFEU (0-500) H 05/19/18 09:46 ABG pH 7.48 pH Units (7.32-7.45) H 05/19/18 08:42 ABG pO2 51 mmHg (85-104) L 05/19/18 08:42 ABG HCO3 28 mEq/L (21-27) H 05/19/18 08:42 ABG Total CO2 30 mEq/L (20-26) H 05/19/18 08:42 ABG O2 Saturation 88 % (95-98) L 05/19/18 08:42 ABG Base Excess 5 mEq/L (-2 to 3) H 05/19/18 08:42 Sodium 130 mEq/L (136-145) L 05/22/18 03:53 Potassium 6.0 mEq/L (3.5-5.1) H 05/22/18 03:53 Chloride 90 mEq/L (98-107) L 05/22/18 03:53 Carbon Dioxide 30 mEq/L (23-29) H 05/22/18 03:53 BUN 81 mg/dL (8-23) H 05/22/18 03:53 Creatinine 6.90 mg/dL (0.60-1.20) H 05/22/18 03:53 Est GFR ( Amer) 7 (> 60) L 05/22/18 03:53 Est GFR (Non-Af Amer) 6 (> 60) L 05/22/18 03:53 Glucose 145 mg/dL (70-105) H 05/22/18 03:53 B-Natriuretic Peptide 2247 pg/mL (Less than 100) H 05/19/18 08:54 - Microbiology Findings Microbiology Findings: Microbiology, Last 48 Hours 05/19/18 Unknown Respiratory Culture - Preliminary Left Upper Lobe Lung No growth. - Clinical Findings Intake & Output: Intake & Output 05/21/18 05/22/18 05/22/18 23:59 07:59 15:59 Intake Total 200 / 200 60 / 60 Output Total 0 / 0 Balance 200 / 200 60 / 60 Weight 67.1 kg
--- NOTE | 2018-05-22 11:23 | Nephrology Progress Note ---
<Bhumika Chambers - Last Filed: 05/22/18 13:10> Date of Encounter: 05/22/18 Time of Encounter: 11:21 - Assessment and Plan (1) End stage renal disease on dialysis Status: Chronic Current regimen is MWF with Dr. Araujo. HD today. Renal diet, if able to eat. Renal dose all medications and avoid nephrotoxins. (2) COPD (chronic obstructive pulmonary disease) Status: Chronic per primary/pulmonary team Qualifiers: COPD type: unspecified COPD Qualified Code(s): J44.9 - Chronic obstructive pulmonary disease, unspecified (3) Acute and chronic respiratory failure with hypoxia Status: Acute per primary/pulmonary team (4) Hypertension Status: Chronic Continue chronic meds. Qualifiers: Hypertension type: essential hypertension Qualified Code(s): I10 - Essential (primary) hypertension (5) Peripheral edema Status: Acute HD in progress today. Will order additional UF as needed. Subjective Principal diagnosis: Mucus plugging, hypoxia Interval history: Pt seen and examined during HD, tolerating well. Denies CP,SOB, nausea/vomiting diarrhea. Objective - Vital Signs Vital signs: Vital Signs Temp Pulse Resp BP Pulse Ox 05/22/18 10:50 119/45 05/22/18 10:35 122/46 05/22/18 10:20 137/43 05/22/18 10:05 131/58 05/22/18 09:50 97.5 F L 17 137/56 05/22/18 08:07 97.8 F 70 16 145/71 96 05/22/18 07:40 18 98 05/22/18 04:37 97.7 F 70 16 113/62 96 05/22/18 04:06 16 95 05/22/18 00:08 97.9 F 77 16 113/54 100 05/21/18 23:55 16 98 05/21/18 20:05 20 98 05/21/18 19:21 98.1 F 72 17 113/56 97 05/21/18 16:00 98.0 F 05/21/18 15:48 20 98 05/21/18 12:00 97.8 F 75 20 127/48 98 05/21/18 11:33 18 98 Intake and Output 05/21/18 05/22/18 05/22/18 23:59 07:59 15:59 Intake Total 200 / 200 660 / 660 Output Total 0 / 0 Balance 200 / 200 660 / 660 Intake: Oral 200 / 200 60 / 60 Intake, Rinseback and Flushes 600 / 600 Output: Urine 0 / 0 Other: Meal Dinner Percent of Meal Consumed 90% Weight 67.1 kg Hemodialysis Net Fluid Removed 1206 (mL) Patient Weight 05/22/18 23:59 Weight 67.1 kg - General Appearance General appearance: Present: well-developed, well-nourished EENT: Present: ATNC, hearing intact, vision intact Neck: Present: supple Cardiology: Present: edema (Trace bilat lower ext. edema noted.), normal S1, normal S2 Dialysis Vascular Access: Arteriovenous Fistula thrill: Yes bruit: Yes Gastrointestinal: Present: normoactive bowel sounds, no tenderness, no guarding Integumentary: Present: no rash, warm and dry Neurologic: Present: alert and oriented x3 Psychiatric: Present: mood/affect appropriate, cooperative - Lab 05/22/18 03:53 05/22/18 03:53 Most recent lab results ABG pH 7.48 pH Units (7.32-7.45) H 05/19/18 08:42 ABG pCO2 38 mmHg (35-45) 05/19/18 08:42 ABG pO2 51 mmHg (85-104) L 05/19/18 08:42 ABG HCO3 28 mEq/L (21-27) H 05/19/18 08:42 ABG O2 Saturation 88 % (95-98) L 05/19/18 08:42 Calcium 9.5 mg/dL (8.6-10.3) 05/22/18 03:53 Magnesium 2.0 mg/dL (1.6-2.6) 05/20/18 03:30 Consult Discharge Plan - Plan Additional Instructions: Chest percussion vest - use twice a day.. Referrals: Vladimir Chaidez MD [Primary Care Provider] - 05/29/18 3:00 pm (Please follow up as schedule...) Delon Lazo MD [Partnered Physician] - 06/07/18 1:30 pm (Please follow up as schedule...) Prescriptions: 3% Sodium Chloride Inhalation 4 ml IH Q12HR #60 vial.neb Acetylcysteine 10% 2 ml IH N42ABMOT #60 inhsol Albuterol Neb [Proventil Neb] 2.5 mg IH TIDR #120 inhsol Azithromycin [Zithromax] 500 mg PO Q48H #30 tablet Sulfamethoxazole/Trimeth DS [Bactrim DS] 1 each PO DAILY #30 tablet <Sophia Macario - Last Filed: 06/02/18 10:06> Date of Encounter: 05/22/18 - Assessment and Plan (1) COPD (chronic obstructive pulmonary disease) Status: Chronic Qualifiers: COPD type: unspecified COPD Qualified Code(s): J44.9 - Chronic obstructive pulmonary disease, unspecified (2) Acute and chronic respiratory failure with hypoxia Status: Acute (3) End stage renal disease on dialysis Status: Chronic (4) Hypertension Status: Chronic Qualifiers: Hypertension type: essential hypertension Qualified Code(s): I10 - Essential (primary) hypertension (5) Peripheral edema Status: Acute Objective - Lab 05/23/18 05:55 05/23/18 05:55 Most recent lab results ABG pH 7.48 pH Units (7.32-7.45) H 05/19/18 08:42 ABG pCO2 38 mmHg (35-45) 05/19/18 08:42 ABG pO2 51 mmHg (85-104) L 05/19/18 08:42 ABG HCO3 28 mEq/L (21-27) H 05/19/18 08:42 ABG O2 Saturation 88 % (95-98) L 05/19/18 08:42 Calcium 10.1 mg/dL (8.6-10.3) 05/23/18 05:55 Magnesium 2.0 mg/dL (1.6-2.6) 05/20/18 03:30 - Attending Attestation I examined this patient and my medical decision-making was reviewed with the Resident Physician/WINDOWS APPLICATION DEVELOPER. I agree with the documented findings, disposition and treatment plan as described except to the extent set forth below. Pt seen and examined on HD doing well. Breathing improved. Exam show lungs with good areation ant bilat. Labs noted. Continue HD with UF as tolerated.
[2018-05-22] MEDS ORDERED: Azithromycin 250 MG TABLET PO SCH (12:00)
[2018-05-22] MEDS: predniSONE 20 MG TABLET PO SCH (14:03)
[2018-05-22] MEDS ORDERED: Albuterol 2.5 MG/3 ML NEBULIZER ONE (15:10)
[2018-05-22] MEDS ORDERED: levoFLOXacin 500 MG TABLET PO SCH (16:00)
--- NOTE | 2018-05-22 16:07 | Internal Med Progress Note ---
Hospitalist Progress Note - Encounter Date of Encounter: 05/22/18 Time of Encounter: 16:05 - Subjective Interval History: Reports feeling well. Return from hemodialysis. Improved shortness of breath, however cannot bring up any sputum yet. No chest pain, palpitations, dizziness. Tolerates diet. Reports some constipation, declines laxatives at this time. - Exam Vitals: Temp Pulse Resp BP Pulse Ox 97.6 F 70 15 144/47 96 05/22/18 13:50 05/22/18 08:07 05/22/18 13:50 05/22/18 13:50 05/22/18 08:07 Exam: General: Well-developed female sitting up in bed in no acute distress Chest: B/L coarse breath sounds. Heart: Normal S1 & S2; irregular. systolic murmur+ Abdomen: Non-distended, soft and nontender Extremities: No clubbing, cyanosis; B/L ankle edema+ No calf tenderness. Normal distal pulses. Neurological: Awake, alert and oriented to person, place and time. No focal deficits. Psych: Affect appropriate. - Assessment and Plan (1) Acute and chronic respiratory failure with hypoxia Current Visit: Yes Status: Acute Assessment and Plan: Due to underlying tracheobronchomalacia and recurrent mucus plugging. Improving oxygen requirements, currently down to baseline of 3 L/m via nasal cannula. (2) COPD (chronic obstructive pulmonary disease) Current Visit: Yes Status: Chronic Assessment and Plan: Acute exacerbation likely secondary to mucous plugging, less likely pneumonia. Continue enteral steroids, bronchodilators, supplemental oxygen. Has received antibiotic treatment with IV Levaquin initially, transitioned to azithromycin today for anti-inflammatory effects. Less likely infection. Consulted infectious diseases for further recommendations. (3) End stage renal disease on dialysis Current Visit: Yes Status: Chronic Assessment and Plan: Nephrology on board, received hemodialysis today. Chronic mild hyperkalemia. (4) Hyperkalemia Current Visit: Yes Status: Chronic Assessment and Plan: Changed dosing of ARB to once daily from twice daily after recent hospitalization. May need to hold off in light of persistent hyperkalemia. 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 Underwent bronchoscopy, showed atelectasis of left upper and lower lobes status post suctioning. Pathology was negative for malignancy. Fluid cultures show no growth. Continue supportive care with oral and inhaled patient Mucomyst, started on inhaled hypertonic saline, continue low-dose prednisone, aggressive bronchopulmonary toileting, when necessary albuterol. bibliographic services specialist on board for possible percussion vest approval, however insurance denied. (6) Anemia in chronic kidney disease (CKD) Current Visit: Yes Status: Chronic (7) Congestive heart failure Current Visit: Yes Status: Chronic (8) Essential hypertension Current Visit: Yes Status: Chronic (9) Mucus plugging of bronchi Current Visit: Yes Status: Chronic Assessment and Plan: plan as above; (10) PAF (paroxysmal atrial fibrillation) Current Visit: Yes Status: Chronic Assessment and Plan: Currently rate controlled. Not on anticoagulation as outpatient. Continue beta azeem and telemetry monitoring. DVT Prophylaxis: On subcutaneous heparin. - Time Spent with Patient Total time spent is greater than 50% in coordination of care (as documented) at patient's floor/unit and/or counseling patient: Plan of Care Discussed with: patient Internal Medicine: Result - Labs CBC & Chem 7: 05/22/18 03:53 05/22/18 03:53 Labs: Short CBC 05/22/18 Range/Units 03:53 WBC 6.2 (4.3-11.1) K/mcL Hgb 8.3 L (11.5-15.4) g/dL Hct 25.1 L (35.3-44.9) % Plt Count 124 L (140-400) K/mcL BMP 05/22/18 03:53 Sodium 130 L Potassium 6.0 H Chloride 90 L Carbon Dioxide 30 H BUN 81 H Creatinine 6.90 H Glucose 145 H Calcium 9.5 - ABG Interpretation ABG results: ABG ABG pH 7.48 pH Units (7.32-7.45) H 05/19/18 08:42 ABG pCO2 38 mmHg (35-45) 05/19/18 08:42 ABG pO2 51 mmHg (85-104) L 05/19/18 08:42 ABG O2 Saturation 88 % (95-98) L 05/19/18 08:42 PT/INR, D-dimer PT 11.3 Seconds (9.4-12.1) 05/19/18 09:46 D-Dimer 1800 ng/mLFEU (0-500) H 05/19/18 09:46 Consult Discharge Plan - Plan Referrals: Vladimir Chaidez MD [Primary Care Provider] - (2) COPD (chronic obstructive pulmonary disease) Qualifiers: COPD type: unspecified COPD Qualified Code(s): J44.9 - Chronic obstructive pulmonary disease, unspecified (6) Anemia in chronic kidney disease (CKD) Qualifiers: Chronic kidney disease stage: on chronic dialysis Qualified Code(s): N18.6 - End stage renal disease; D63.1 - Anemia in chronic kidney disease; D63.1 - Anemia in chronic kidney disease; Z99.2 - Dependence on renal dialysis; Z99.2 - Dependence on renal dialysis; Z99.2 - Dependence on renal dialysis; Z99.2 - Dependence on renal dialysis
[2018-05-22] MEDS: 3% Sodium Chloride Inhalation 4 ML VIAL.NEB IH SCH (16:18)
[2018-05-22] MEDS: Albuterol 2.5 MG/3 ML NEBULIZER IH SCH ×2 (16:19→23:10)
[2018-05-22] MEDS ORDERED: Acetylcysteine 10% 2 ML INHSOL IH SCH (18:00)
--- NOTE | 2018-05-23 01:33 | Infectious Disease Consult ---
Date of Encounter: 05/22/18 Time of Encounter: 17:00 Assessment and Plan (1) Acute on chronic respiratory failure with hypoxia Status: Resolved (2) Bronchiectasis Status: Acute Qualifiers: Bronchiectasis type: with acute exacerbation Qualified Code(s): J47.1 - Bronchiectasis with (acute) exacerbation (3) Tracheobronchomalacia determined by bronchoscopy Status: Chronic (4) History of MRSA infection of lungs Status: Acute Assessment and plan: revealed on bronchoscopy BAL Feb 17 2018 MRSA S: bactrim, doxy and clindamycin (treated with vancomycin x 10 days) repeat cultures from BAL in March and April reveal no MRSA Agree with contact and drobplet isolation await BAL cultures from 05/19 consider staring the patient on bactrim DS I tab daily give on dialsyis days after dialysis duration of treatment 3 - 4 weeks (5) Mucus plugging of bronchi Status: Chronic Assessment and plan: recurrent secondary to bronchiolitis and COPD? has had multiple bronchoscopies in the last 18 months (8 in total) Oct 2016 normal upper respiratory ayde February 2017 normal upper respiratory ayde Nov 2017 Serratia marscescens velez sensitive (treated with Cipro x 14 days) 2017 BAL no growth Feb 17 2018 MRSA S: bactrim, doxy and clindamycin (treated with vancomycin x 10 days) March 18 2018 Stenotrophomonas maltophilia S: bactrim and levofloxacin (sent home on azithromycin) May 03 2018 No growth (sent home on levofloxacin) May 19: NGT Agree with pulmonary recommendations for aggressive pulmonary tioleting and Nebs consider giving Bactrim for 4-6 weeks orally to see if that decreased recurrence bactrim would cover all the previous cultures including serratia, MRSA, stenotrophomonas Agree with azithromycin dose adjust bactrim to one tab DS daily (on days of dialysis give after dialysis ) prognosis over all guarded. (6) ESRD on dialysis Status: Chronic Assessment and plan: for the last 3 years patient donated one of her kidneys to her sister about 30 years ago etiology for CKD not known on HD on MWF (7) Collapse of left lung Status: Acute (8) Elevated brain natriuretic peptide (BNP) level Status: Acute Infectious Disease HPI - Data of Consult Patient: known to practice within the last 3 years Consult date: 05/22/18 Requesting Physician: Jarod Quintana MD Primary Care Provider: Vladimir Chaidez MD - Consult Narrative Reason for consult: recurrent pneumonia History of present illness: Ms. Carmona is a 77 year old female patient is a 77 year old woman who presented to [place] on 05/19 with shortness of breath, we are consulted today on 05/22 for "Recurrent admissions for airway mucus plugging, h/o- tracheobronchomalacia and bronchiectasis; cultures negative ; ABx recommendations; Patient is a 77 year old woman with ESRD x 3 years on HD MWF, COPD on chronic steroids, HTN, hypothyroidism presented to [place] with shortness of breath and hypoxia at home. She has this cough that is non productive. she denies any fevers or chills at home. Denies any pleuritic chest pain. Birefly, patient has had this recurrent COPD and Acute respiratory failure. She has had multiple CTs in the Recent past which reveal mucus plugging with associated atelectasis vs pneumonia. It also reveals bronchiolitis. Multiple bronchoscopies have been done since Oct 2016 and they reveal BAL: Oct 2016 normal upper respiratory ayde February 2017 normal upper respiratory ayde Nov 2017 Serratia marscescens velez sensitive (treated with Cipro x 14 days) January 2018 BAL no growth Feb 17 2018 MRSA S: bactrim, doxy and clindamycin (treated with vancomycin x 10 days) March 18 2018 Stenotrophomonas maltophilia S: bactrim and levofloxacin (sent home on azithromycin) May 03 2018 No growth (sent home on levofloxacin) May 19: NGT Keep in mind that all fungal and AFB culture have been negative. Since admission, she has been afebrile, intermittent tachycardia, hypoxia and tachypnea. presenting labs revealed normal WBC with normal diff. D Dimer was elevated at 1800. ABG showed PO2 of 51 and BUN/Cr of 42 and 5.54. BNP was 2247. Bronch done on 05/19 with cultures with no growth to date. Report reads Bronchial mucosa and anatomy on the right lung are normal; on the left side the mucosa is slightly inflamed with lot of thick mucus plug coming from LAST and LLL airways. It was thick mucopurulent requiring quite a bit of suctioning. cytology read :LAST BAL:Negative for malignancyHypocellular specimen with a few benign squamous and columnar epithelial cellsinitial CXR revealed Interval increase in extensive left lung pulmonary opacity may represent acombination of atelectasis, pneumonia, and/or pleural effusion. Interval worsening in the right lower lung pulmonary opacity. Slight leftward mediastinal shift may be secondary to left lung atelectasis. No evidence of pneumothorax. Patient was treated with vancomycin x 2 days and zosyn x 1 dayand currently she s on levofloxacin and azithromycin.we were asked to see the patient and make further recommendations: Currently patient is sitting up in bed. at Bedside. she states she is feeling much better. ROS is otherwise unremarkable. CC: Jarod Quintana MD Past Med Surg Social Fam HX - Past Medical History Medical history: atrial fibrillation, COPD, DVT, dialysis, hyperlipidemia, hypertension, osteoporosis, renal disease Additional medical history: broken right foot (2001), left arm fistula Psychiatric history: no psych history - Past Surgical History Surgical History: other Additional surgical history: back surgery L4-L5, , left nephrectomy for donation , cataract removal, CTR-left, A-V fistula placed in left arm. - Social History Smoking Status: Never smoker Smokeless Tobacco Status: No Alcohol use: none Drug use: none - Family History Mother Adopted: No Family Member Ethnicity: Non- Living Status: Hx Family Cardiac Disorders: No Hx Family Respiratory Disorders: No Hx Family Cancer: Yes Hx Family GI Disorders: No Hx Family Endocrine Disorder: No Hx Family Neuromuscular Disorders: No Hx Family Neurologic Disorders: No Hx Family HEENT Disorders: No Hx Family Autoimmune Disorders: No Infectious Disease-CN:Meds Albuterol Sulfate [Ventolin Hfa] 2 puff IH Q4H PRN 10/12/16 [History] Aspirin 81 mg PO DAILY 10/12/16 [History] Atorvastatin [Lipitor] 40 mg PO HS 10/12/16 [History] Budesonide/Formoterol 160/4.5 [Symbicort 160/4.5] 2 puff IH BIDR 10/12/16 [ History] Furosemide [Lasix] 20 mg PO QPM 10/12/16 [History] Furosemide [Lasix] 40 mg PO QAM 10/12/16 [History] Metoprolol XL (24 HR) Succ [Toprol Xl] 50 mg PO DAILY 01/14/17 [History] Loratadine [Claritin] 10 mg PO DAILY 03/11/17 [History] Sevelamer [Renvela] 4,000 mg PO TIDWM 03/11/17 [History] Pregabalin [Lyrica] 50 mg PO BID 11/22/17 [History] B Complex W-C No.20/Folic Acid [Virt-Caps Softgel] 1 mg PO DAILY 01/01/18 [ History] Ipratropium/Albuterol Neb [Duoneb] 3 ml IH Q6HR PRN 02/15/18 [History] Hydralazine HCl 50 mg PO TID 03/17/18 [History] Levothyroxine Sodium [Levoxyl] 50 mcg PO DAILY 03/17/18 [History] amLODIPine [Norvasc] 5 mg PO BID 03/17/18 [History] Acetylcysteine [O-Pehlni-y-Cysteine] 600 mg PO BID 04/17/18 [History] Tiotropium [Spiriva] 2 puff IH DAILY 05/02/18 [History] Losartan [Cozaar] 50 mg PO DAILY #60 tablet 05/07/18 [Rx] HYDROcodone BIT/Homatropine LQ [Hycodan Syrup] 5 ml PO Q6H PRN 05/19/18 [History ] levoFLOXacin [Levofloxacin] 500 mg PO DAILY 05/19/18 [History] predniSONE [PredniSONE] 10 mg PO DAILY 05/19/18 [History] 3 Allergy/AdvReac Type Severity Reaction Status Date / Time codeine Allergy Rash Verified 05/02/18 15:33 gabapentin Allergy Itching Verified 05/02/18 15:33 Review of systems: 10 point ROS done, negative other for what's mentioned in the HPI Exam - Constitutional Vitals: Temp Pulse Resp BP Pulse Ox 98.2 F 63 16 130/70 98 05/23/18 00:16 05/23/18 00:16 05/23/18 00:16 05/23/18 00:16 05/23/18 00:16 General appearance: cooperative, no acute distress, no febrile - Head Head exam: Present: atraumatic, normocephalic - Eye Eye exam: Present: EOMI, PERRL, sclera anicteric - ENT ENT exam: Present: mucous membranes moist Additional comments: no oral lesions - Neck Neck exam: Present: full ROM. Absent: meningismus - Respiratory Respiratory exam: Present: rhonchi, wheezes Additional comments: air sounds audible both lung marquez. chest expanding symmetrically. decreased breath sounds at the bases. - Cardiovascular Cardiovascular exam: Present: RRR, +S1, +S2 - GI/Abdominal GI/Abdominal exam: Present: normal bowel sounds, soft. Absent: tenderness - Extremities Exam Extremities exam: Present: normal inspection. Absent: pedal edema - Neurological Exam Neurological exam: Present: alert, oriented X3. Absent: speech deficit - Psychiatric Psychiatric exam: Present: flat affect - Skin Skin exam: Present: normal color. Absent: rash Infectious Disease CN: Results - Labs CBC & Chem 7: 05/22/18 03:53 05/22/18 03:53 Cultures: Cultures 05/19/18 Unknown Respiratory Culture - Preliminary Left Upper Lobe Lung No growth. Serology: Serology 05/19/18 Range/Units Unknown Fluid Source LAST BAL Fluid Volume 10 mL Fluid Appearance Clear (Clear) Fluid RBC (No Ref Range) RBC/mcL Fld Tot Nucleated Cell (No Ref Range) TNC/mcL Fluid Seg Neutrophil % 12.0 % Fld Band Neutrophil % Test Not Performed Fluid Lymphocytes % Test Not Performed Fluid Monocytes % Test Not Performed Fluid Eosinophils % Test Not Performed Fluid Basophils % Test Not Performed Fluid Other Cells % 88.0 % Consult Discharge Plan - Plan Referrals: Vladimir Chaidez MD [Primary Care Provider] -
[2018-05-23] MEDS: 3% Sodium Chloride Inhalation 4 ML VIAL.NEB IH SCH (05:34)
[2018-05-23] MEDS: *HR* Heparin 5,000 UNIT/ML VIAL SQ SCH (06:04)
[2018-05-23 06:43] LABS: Hemoglobin 8.6 g/dL (11.5-15.4); Mean Corpuscular HGB Conc 33.1 g/dL (31.6-35.5); Mean Corpuscular Hemoglobin 31.6 pg (28.0-33.3); Mean Corpuscular Volume 95.6 fL (83.0-100.0); Mean Platelet Volume 10.1 fL (9.4-12.4); Platelet Count 119 K/mcL (140-400); Red Blood Count 2.72 M/mcL (3.82-4.97); Red Cell Distribution Width 16.2 % (11.5-14.5)
[2018-05-23 07:04] LABS: Calcium 10.1 mg/dL (8.6-10.3); Potassium 5.2 mEq/L (3.5-5.1)
--- NOTE | 2018-05-23 07:39 | Pulmonology Progress Note ---
<Keegan Malave - Last Filed: 05/23/18 08:03> Date of Encounter: 05/23/18 Time of Encounter: 07:39 Assessment and Plan (1) Mucus plugging of bronchi Current Visit: Yes Status: Chronic Recurrent issue for the patient as she has undergone bronchoscopy several times in the past for hypoxia due to mucous plugging of the left lung. Patient underwent bronchoscopy shortly after admission which greatly relieved to mucus plugging. Plan for outpatient pulmonary medications: N-acetylcysteine nebulized twice a day Hypertonic saline nebulized twice a day Albuterol nebulized 3 times a day with using her Acapella device at the same time Azithromycin 500 mg every other day Prescriptions for these medications have been written. This plan was discussed with the patient. Follow-up with pulmonary clinic in one week. Stable for discharge from a pulmonary standpoint (2) Collapse of left lung Current Visit: No Status: Acute Secondary to mucous plugging requiring bronchoscopy. Aeration much improved status post bronchoscopy. She is back to her baseline oxygen requirement with bilateral breath sounds. (3) Acute and chronic respiratory failure with hypoxia Current Visit: Yes Status: Acute Stable at this time. Acute component likely due to mucous plugging and worsening of her VQ mismatch requiring increased oxygen and positive pressure ventilation. Patient is back on her home O2 dose and otherwise stable. (4) Acute exacerbation of chronic obstructive pulmonary disease (COPD) Current Visit: No Status: Acute Continue bronchodilators and transition to oral prednisone 40 mg daily with an extended 21 day taper down to her home dose of 10 mg daily. Subjective Principal diagnosis: Mucus plugging, hypoxia Interval history: Patient seen and examined at bedside. Patient states that she feels good today. She denies any shortness of breath, cough, sputum production, fever, chills. She has not required BiPAP overnight. She denies feeling like she has mucus that she cannot expel. Objective PUL Vital signs: Last Vital Signs Temp 97.8 F 05/23/18 06:50 Pulse 69 05/23/18 06:50 Resp 16 05/23/18 06:50 BP 118/58 05/23/18 06:50 Pulse Ox 100 05/23/18 06:50 General appearance: no acute distress ENT: oropharynx moist Effort: normal Auscultation: bilateral: clear Cardiovascular: regular rate and rhythm Gastrointestinal: normoactive bowel sounds Extremities: no cyanosis, no edema, no clubbing normal mental status, non-focal exam Results - Laboratory Findings CBC and BMP: 05/23/18 05:55 05/23/18 05:55 ABG ABG pH 7.48 pH Units (7.32-7.45) H 05/19/18 08:42 ABG pCO2 38 mmHg (35-45) 05/19/18 08:42 ABG pO2 51 mmHg (85-104) L 05/19/18 08:42 ABG O2 Saturation 88 % (95-98) L 05/19/18 08:42 PT/INR, D-dimer PT 11.3 Seconds (9.4-12.1) 05/19/18 09:46 D-Dimer 1800 ng/mLFEU (0-500) H 05/19/18 09:46 Abnormal lab findings: Abnormal lab results RBC 2.72 M/mcL (3.82-4.97) L 05/23/18 05:55 Hgb 8.6 g/dL (11.5-15.4) L 05/23/18 05:55 Hct 26.0 % (35.3-44.9) L 05/23/18 05:55 RDW 16.2 % (11.5-14.5) H 05/23/18 05:55 Plt Count 119 K/mcL (140-400) L 05/23/18 05:55 Lymphocytes # 0.1 K/mcL (0.6-4.6) L 05/20/18 03:30 Platelet Estimate Slight Decrease (Normal) L 05/20/18 03:30 Anisocytosis 1+ (Not Present) A 05/20/18 03:30 D-Dimer 1800 ng/mLFEU (0-500) H 05/19/18 09:46 ABG pH 7.48 pH Units (7.32-7.45) H 05/19/18 08:42 ABG pO2 51 mmHg (85-104) L 05/19/18 08:42 ABG HCO3 28 mEq/L (21-27) H 05/19/18 08:42 ABG Total CO2 30 mEq/L (20-26) H 05/19/18 08:42 ABG O2 Saturation 88 % (95-98) L 05/19/18 08:42 ABG Base Excess 5 mEq/L (-2 to 3) H 05/19/18 08:42 Sodium 134 mEq/L (136-145) L 05/23/18 05:55 Potassium 5.2 mEq/L (3.5-5.1) H 05/23/18 05:55 BUN 49 mg/dL (8-23) H 05/23/18 05:55 Creatinine 4.06 mg/dL (0.60-1.20) H 05/23/18 05:55 Est GFR ( Amer) 13 (> 60) L 05/23/18 05:55 Est GFR (Non-Af Amer) 11 (> 60) L 05/23/18 05:55 B-Natriuretic Peptide 2247 pg/mL (Less than 100) H 05/19/18 08:54 - Microbiology Findings Microbiology Findings: Microbiology, Last 48 Hours 05/19/18 Unknown Respiratory Culture - Preliminary Left Upper Lobe Lung No growth. - Clinical Findings Intake & Output: Intake & Output 05/22/18 05/22/18 05/23/18 15:59 23:59 07:59 Intake Total 660 / 660 240 / 240 Output Total 3600 / 3600 Balance -2940 / -2940 240 / 240 Weight 66.7 kg Consult Discharge Plan - Plan Referrals: Vladimir Chaidez MD [Primary Care Provider] - Delon Lazo MD [Partnered Physician] - 06/07/18 1:30 pm (Please follow up as schedule...) Prescriptions: 3% Sodium Chloride Inhalation 4 ml IH Q12HR #60 vial.neb Acetylcysteine 10% 2 ml IH [id number] #60 inhsol Albuterol Neb [Proventil Neb] 2.5 mg IH TIDR #120 inhsol Azithromycin [Zithromax] 500 mg PO Q48H #30 tablet <Delon Lazo - Last Filed: 05/23/18 08:42> Date of Encounter: 05/23/18 Objective PUL Vital signs: Last Vital Signs Temp 97.8 F 05/23/18 06:50 Pulse 69 05/23/18 06:50 Resp 16 05/23/18 06:50 BP 118/58 05/23/18 06:50 Pulse Ox 100 05/23/18 06:50 Results - Laboratory Findings CBC and BMP: 05/23/18 05:55 05/23/18 05:55 ABG ABG pH 7.48 pH Units (7.32-7.45) H 05/19/18 08:42 ABG pCO2 38 mmHg (35-45) 05/19/18 08:42 ABG pO2 51 mmHg (85-104) L 05/19/18 08:42 ABG O2 Saturation 88 % (95-98) L 05/19/18 08:42 PT/INR, D-dimer PT 11.3 Seconds (9.4-12.1) 05/19/18 09:46 D-Dimer 1800 ng/mLFEU (0-500) H 05/19/18 09:46 Abnormal lab findings: Abnormal lab results RBC 2.72 M/mcL (3.82-4.97) L 05/23/18 05:55 Hgb 8.6 g/dL (11.5-15.4) L 05/23/18 05:55 Hct 26.0 % (35.3-44.9) L 05/23/18 05:55 RDW 16.2 % (11.5-14.5) H 05/23/18 05:55 Plt Count 119 K/mcL (140-400) L 05/23/18 05:55 Lymphocytes # 0.1 K/mcL (0.6-4.6) L 05/20/18 03:30 Platelet Estimate Slight Decrease (Normal) L 05/20/18 03:30 Anisocytosis 1+ (Not Present) A 05/20/18 03:30 D-Dimer 1800 ng/mLFEU (0-500) H 05/19/18 09:46 ABG pH 7.48 pH Units (7.32-7.45) H 05/19/18 08:42 ABG pO2 51 mmHg (85-104) L 05/19/18 08:42 ABG HCO3 28 mEq/L (21-27) H 05/19/18 08:42 ABG Total CO2 30 mEq/L (20-26) H 05/19/18 08:42 ABG O2 Saturation 88 % (95-98) L 05/19/18 08:42 ABG Base Excess 5 mEq/L (-2 to 3) H 05/19/18 08:42 Sodium 134 mEq/L (136-145) L 05/23/18 05:55 Potassium 5.2 mEq/L (3.5-5.1) H 05/23/18 05:55 BUN 49 mg/dL (8-23) H 05/23/18 05:55 Creatinine 4.06 mg/dL (0.60-1.20) H 05/23/18 05:55 Est GFR ( Amer) 13 (> 60) L 05/23/18 05:55 Est GFR (Non-Af Amer) 11 (> 60) L 05/23/18 05:55 B-Natriuretic Peptide 2247 pg/mL (Less than 100) H 05/19/18 08:54 - Microbiology Findings Microbiology Findings: Microbiology, Last 48 Hours 05/19/18 Unknown Respiratory Culture - Final Left Upper Lobe Lung No growth. - Clinical Findings Intake & Output: Intake & Output 05/22/18 05/23/18 05/23/18 23:59 07:59 15:59 Intake Total 240 / 240 Balance 240 / 240 Weight 66.7 kg - Attending Attestation I examined this patient and my medical decision-making was reviewed with the Resident Physician. I agree with the documented findings, disposition and treatment plan as described except to the extent set forth below. We independently had [id number] contact with the patient Patient seen and examined at bedside Labs, radiology, chart personally reviewed. 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
[2018-05-23] MEDS: Albuterol 2.5 MG/3 ML NEBULIZER IH SCH (08:00)
[2018-05-23] MEDS: Budesonide/Formoterol 160/4.5 1 PUFF INH IH SCH (08:00)
[2018-05-23] MEDS: Pregabalin 50 MG CAPSULE PO SCH (09:00)
[2018-05-23] MEDS: hydrALAZINE 25 MG TABLET PO SCH (09:00)
[2018-05-23] MEDS: amLODIPine 5 MG TABLET PO SCH (09:00)
[2018-05-23] MEDS: predniSONE 20 MG TABLET PO SCH (09:00)
[2018-05-23] MEDS: Loratadine 10 MG TABLET PO SCH (09:00)
[2018-05-23] MEDS: Aspirin 81 MG TAB.CHEW PO SCH (09:01)
[2018-05-23] MEDS: Metoprolol XL (24 HR) Succ 50 MG TAB.ER.24H PO SCH (09:01)
[2018-05-23] MEDS ORDERED: Acetylcysteine 10% 2 ML INHSOL IH SCH (10:00)
--- NOTE | 2018-05-23 10:36 | Nephrology Progress Note ---
<Bhumika Chambers - Last Filed: 05/23/18 10:33> Date of Encounter: 05/23/18 Time of Encounter: 10:34 - Assessment and Plan (1) End stage renal disease on dialysis Status: Chronic Current regimen is MWF with Dr. Araujo. HD completed yesterday without complication. Renal dose all medications and avoid nephrotoxins. (2) COPD (chronic obstructive pulmonary disease) Status: Chronic per primary/pulmonary team Qualifiers: COPD type: unspecified COPD Qualified Code(s): J44.9 - Chronic obstructive pulmonary disease, unspecified (3) Acute and chronic respiratory failure with hypoxia Status: Acute per primary/pulmonary team (4) Hypertension Status: Chronic Continue chronic meds. Qualifiers: Hypertension type: essential hypertension Qualified Code(s): I10 - Essential (primary) hypertension (5) Peripheral edema Status: Acute Resolving. Subjective Principal diagnosis: Mucus plugging, hypoxia Interval history: Pt seen and examined doing well. Denies CP,SOB, nausea/vomiting diarrhea. Objective - Vital Signs Vital signs: Vital Signs Temp Pulse Resp BP Pulse Ox 05/23/18 06:50 97.8 F 69 16 118/58 100 05/23/18 05:34 16 98 05/23/18 04:40 98.1 F 70 16 148/59 98 05/23/18 00:16 98.2 F 63 16 130/70 98 05/22/18 23:10 16 98 05/22/18 21:50 118/51 05/22/18 18:45 98.4 F 79 16 109/55 97 05/22/18 16:33 98.6 F 73 16 99/46 99 05/22/18 16:21 18 97 05/22/18 13:50 97.6 F 15 144/47 05/22/18 13:20 122/46 05/22/18 13:05 121/45 05/22/18 12:50 117/43 05/22/18 12:35 104/42 05/22/18 12:20 102/42 05/22/18 12:05 97/44 05/22/18 11:50 98/41 05/22/18 11:35 100/35 05/22/18 11:20 140/56 05/22/18 11:05 121/42 05/22/18 10:50 119/45 05/22/18 10:35 122/46 Intake and Output 05/22/18 05/23/18 05/23/18 23:59 07:59 15:59 Intake Total 240 / 240 420 / 420 Output Total 0 / 0 Balance 240 / 240 420 / 420 Intake: Oral 240 / 240 420 / 420 Output: Urine 0 / 0 Other: Meal Lunch Breakfast Percent of Meal Consumed 100% 100% Weight 66.7 kg Patient Weight 05/23/18 23:59 Weight 66.7 kg - General Appearance General appearance: Present: well-developed, well-nourished EENT: Present: ATNC, hearing intact, vision intact Neck: Present: supple Respiratory: Present: clear Cardiology: Present: no edema, normal S1, normal S2 Dialysis Vascular Access: Arteriovenous Fistula thrill: Yes bruit: Yes Gastrointestinal: Present: normoactive bowel sounds, no tenderness, no guarding Integumentary: Present: no rash, warm and dry Neurologic: Present: alert and oriented x3 Psychiatric: Present: mood/affect appropriate, cooperative - Lab 05/23/18 05:55 05/23/18 05:55 Most recent lab results ABG pH 7.48 pH Units (7.32-7.45) H 05/19/18 08:42 ABG pCO2 38 mmHg (35-45) 05/19/18 08:42 ABG pO2 51 mmHg (85-104) L 05/19/18 08:42 ABG HCO3 28 mEq/L (21-27) H 05/19/18 08:42 ABG O2 Saturation 88 % (95-98) L 05/19/18 08:42 Calcium 10.1 mg/dL (8.6-10.3) 05/23/18 05:55 Magnesium 2.0 mg/dL (1.6-2.6) 05/20/18 03:30 Consult Discharge Plan - Plan Additional Instructions: Chest percussion vest - use twice a day.. Referrals: Vladimir Chaidez MD [Primary Care Provider] - 05/29/18 3:00 pm (Please follow up as schedule...) Delon Lazo MD [Partnered Physician] - 06/07/18 1:30 pm (Please follow up as schedule...) Prescriptions: 3% Sodium Chloride Inhalation 4 ml IH Q12HR #60 vial.neb Acetylcysteine 10% 2 ml IH [id number] #60 inhsol Albuterol Neb [Proventil Neb] 2.5 mg IH TIDR #120 inhsol Azithromycin [Zithromax] 500 mg PO Q48H #30 tablet Sulfamethoxazole/Trimeth DS [Bactrim DS] 1 each PO DAILY #30 tablet <Sophia Macario - Last Filed: 06/02/18 11:50> Date of Encounter: 05/23/18 - Assessment and Plan (1) COPD (chronic obstructive pulmonary disease) Status: Chronic Qualifiers: COPD type: unspecified COPD Qualified Code(s): J44.9 - Chronic obstructive pulmonary disease, unspecified (2) Acute and chronic respiratory failure with hypoxia Status: Acute (3) End stage renal disease on dialysis Status: Chronic (4) Hypertension Status: Chronic Qualifiers: Hypertension type: essential hypertension Qualified Code(s): I10 - Essential (primary) hypertension (5) Peripheral edema Status: Acute Objective - Lab 05/23/18 05:55 05/23/18 05:55 Most recent lab results ABG pH 7.48 pH Units (7.32-7.45) H 05/19/18 08:42 ABG pCO2 38 mmHg (35-45) 05/19/18 08:42 ABG pO2 51 mmHg (85-104) L 05/19/18 08:42 ABG HCO3 28 mEq/L (21-27) H 05/19/18 08:42 ABG O2 Saturation 88 % (95-98) L 05/19/18 08:42 Calcium 10.1 mg/dL (8.6-10.3) 05/23/18 05:55 Magnesium 2.0 mg/dL (1.6-2.6) 05/20/18 03:30 - Attending Attestation I examined this patient and my medical decision-making was reviewed with the Resident Physician/[employer]. I agree with the documented findings, disposition and treatment plan as described except to the extent set forth below. Pt seen and examined doing well. s/p HD yesterday. No new complaints. Labs reviewed. Exam unremarkable. Next HD planned on tuesday.
--- NOTE | 2018-05-23 11:10 | Infectious Disease Progress No ---
Date of Encounter: 05/23/18 Time of Encounter: 11:08 - Assessment and Plan (1) Mucus plugging of bronchi Status: Chronic Recurrent. Secondary to bronchiolitis and possible COPD. The patient has had multiple bronchoscopies in the last 18 months (8 total). October 2016 - [facility]. February 2017 - [facility] Nov 2017 - S. marscescens, velez-sensitive (treated with Cipro x 14 days) January 2018 - No growth February 2018 - MRSA, sensitive to Bactrim ,doxycycline, and clindamycin (treated with vancomycin x 10 days) March 2018 - S. maltophilia, sensitive to Bactrim and Levaquin (sent home on azithromycin) April 2018 - No growth May 19, 2018 - NGTD. Agree with pulmonary recommendations for aggressive pulmonary toileting and nebulizers and azithromycin for its anti-inflammatory properties. May consider starting Bactrim DS 1 tab PO daily, given after HD on HD days. Bactrim will cover all previous causative organisms. Will discuss with the pulmonary team before starting. Duration of treatment depends on the clinical picture, but consider 4-6 weeks to see if that decreases recurrence. (2) Collapse of left lung Status: Acute Likely secondary to mucous plugging. Improved. (3) Acute and chronic respiratory failure with hypoxia Status: Acute Likely secondary to mucous plugging, bronchiectasis, and bronchiolitis. Resolved. (4) History of MRSA infection of lungs Status: Acute Revealed on bronchoscopy BAL. February 2018 MRSA, sensitive to Bactrim, doxycycline, and clindamycin (treated with Vanc for 10 days). Repeat BAL cultures in March and April were negative for MRSA. Continue contact and droplet precautions per protocol. BAL cultures from 05/19/18 remain NGTD. Consider starting Bactrim DS 1 tab PO daily, dose-adjusted for HD. Will discuss with pulm. Duration of treatment depends on the clinical picture, but likely 4 weeks. (5) Bronchiectasis Status: Acute Qualifiers: Bronchiectasis type: with acute exacerbation Qualified Code(s): J47.1 - Bronchiectasis with (acute) exacerbation (6) Elevated brain natriuretic peptide (BNP) level Status: Acute (7) ESRD on dialysis Status: Chronic Nephrology consulted and following. 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 No acute events noted overnight. Patient sitting up in bed, states she feels well and is ready to go home. Denies fevers, chills, or rigors. Denies chest pain. Denies shortness of breath, but states she hasn't been out of bed. Reports a dry cough this morning. Denies abdominal pain or appetite changes. She is anuric due to ESRD. Denies oral thrush or new skin lesions. Infect Dis PN-Objective Data - Labs CBC & Chem 7: 05/23/18 05:55 05/23/18 05:55 Labs: Laboratory Results - last 24 hr 05/23/18 05/23/18 05:55 05:55 WBC 6.0 RBC 2.72 L Hgb 8.6 L Hct 26.0 L MCV 95.6 MCH 31.6 MCHC 33.1 RDW 16.2 H Plt Count 119 L MPV 10.1 Sodium 134 L Potassium 5.2 H Chloride 99 Carbon Dioxide 28 BUN 49 H Creatinine 4.06 H Est GFR ( Amer) 13 L Est GFR (Non-Af Amer) 11 L BUN/Creatinine Ratio 12 Glucose 95 Calculated Osmolality 291 Calcium 10.1 Cultures: Cultures 05/19/18 Unknown Respiratory Culture - Final Left Upper Lobe Lung No growth. Serology 05/19/18 Range/Units Unknown Fluid Source LAST BAL Fluid Volume 10 mL Fluid Appearance Clear (Clear) Fluid RBC (No Ref Range) RBC/mcL Fld Tot Nucleated Cell (No Ref Range) TNC/mcL Fluid Seg Neutrophil % 12.0 % Fld Band Neutrophil % Test Not Performed Fluid Lymphocytes % Test Not Performed Fluid Monocytes % Test Not Performed Fluid Eosinophils % Test Not Performed Fluid Basophils % Test Not Performed Fluid Other Cells % 88.0 % Exam - Constitutional Vitals: Temp Pulse Resp BP Pulse Ox 97.8 F 69 16 118/58 100 05/23/18 06:50 05/23/18 06:50 05/23/18 06:50 05/23/18 06:50 05/23/18 06:50 General appearance: average body habitus, cooperative, no acute distress - Head Head exam: Present: atraumatic, normal inspection, normocephalic - Eye Eye exam: Present: EOMI, normal appearance, PERRL Pupils: Present: normal accommodation - ENT ENT exam: Present: mucous membranes moist - Neck Neck exam: Present: normal inspection - Respiratory Respiratory exam: Present: CTAB. Absent: rales, respiratory distress, rhonchi, wheezes - Cardiovascular Cardiovascular exam: Present: RRR, +S1, +S2 - GI/Abdominal GI/Abdominal exam: Present: normal bowel sounds, soft. Absent: distended, tenderness - Extremities Exam Extremities exam: Absent: joint swelling, pedal edema, tenderness Additional comments: AV fistula noted to the left forearm, +/+. - Neurological Exam Neurological exam: Present: alert, oriented X3, no focal deficits - Psychiatric Psychiatric exam: Present: normal affect, normal mood - Skin Skin exam: Present: dry, intact, normal color, warm Consult Discharge Plan - Plan Additional Instructions: Chest percussion vest - use twice a day.. Referrals: Vladimir Chaidez MD [Primary Care Provider] - 05/29/18 3:00 pm (Please follow up as schedule...) Delon Lazo MD [Partnered Physician] - 06/07/18 1:30 pm (Please follow up as schedule...) Prescriptions: 3% Sodium Chloride Inhalation 4 ml IH Q12HR #60 vial.neb Acetylcysteine 10% 2 ml IH [id number] #60 inhsol Albuterol Neb [Proventil Neb] 2.5 mg IH TIDR #120 inhsol Azithromycin [Zithromax] 500 mg PO Q48H #30 tablet Sulfamethoxazole/Trimeth DS [Bactrim DS] 1 each PO DAILY #30 tablet - Attending Attestation I examined this patient and my medical decision-making was reviewed with the Resident Physician. I agree with the documented findings, disposition and treatment plan as described except to the extent set forth below.
[2018-05-23 11:13] VITALS: BP 92/55
--- NOTE | 2018-05-23 13:53 | Discharge Summary ---
Orders not resulted at time of discharge: Pending orders 05/19/18 Fungal Culture [MYC] Routine Resp.Virus Panel,Body Fl Routine 05/24/18 04:00 BMP [Basic Metabolic Panel] AM 0400 Complete Blood Count w/o Diff [HEME] AM 0400 05/25/18 04:00 BMP [Basic Metabolic Panel] AM 0400 Complete Blood Count w/o Diff [HEME] AM 0400 05/26/18 04:00 BMP [Basic Metabolic Panel] AM 0400 Complete Blood Count w/o Diff [HEME] AM 0400 05/27/18 04:00 BMP [Basic Metabolic Panel] AM 0400 Complete Blood Count w/o Diff [HEME] AM 0400 05/28/18 04:00 BMP [Basic Metabolic Panel] AM 0400 Complete Blood Count w/o Diff [HEME] AM 0400 Date of Encounter: 05/23/18 Time of Encounter: 12:30 - Discharge Diagnosis (1) COPD exacerbation Priority: Primary Status: Acute (2) Pneumonia involving left lung Priority: Primary Status: Suspected Qualifiers: Pneumonia type: due to unspecified organism Lung location: lower lobe of lung Qualified Code(s): J18.1 - Lobar pneumonia, unspecified organism (3) Mucus plugging of bronchi Priority: Primary Status: Chronic (4) Collapse of left lung Priority: Primary Status: Acute (5) Acute and chronic respiratory failure with hypoxia Priority: Secondary Status: Acute (6) End stage renal disease on dialysis Priority: Secondary Status: Chronic (7) Anemia in chronic kidney disease (CKD) Priority: Secondary Status: Chronic Qualifiers: Chronic kidney disease stage: on chronic dialysis Qualified Code(s): N18.6 - End stage renal disease; D63.1 - Anemia in chronic kidney disease; D63.1 - Anemia in chronic kidney disease; Z99.2 - Dependence on renal dialysis; Z99.2 - Dependence on renal dialysis; Z99.2 - Dependence on renal dialysis; Z99.2 - Dependence on renal dialysis (8) PAF (paroxysmal atrial fibrillation) Priority: Secondary Status: Chronic (9) Essential hypertension Priority: Secondary Status: Chronic Hospital course: Ms. Carmona is a 77 year old female. This patient has a recurrent mucus plugging on the left side. He had bronchoscopy done on several occasions. She was admitted with the same problem ; was initially on BiPAP. Another bronchoscopy was done. It helped quite a bit. Consultations were obtained from pulmonary diseases and infectious diseases. Her nebulizer treatments have been optimized. They include twice a day Mucomyst, twice a day hypertonic saline and 3 times a day albuterol. She will be taking Zithromax for 30 days (having anti-inflammatory properties in addition to anti-infective). She will be taking Bactrim double strength at one tablet daily for 30 days. It should cover most of her pathogens detected before. Other then mucus plugging, the patient was treated with antibiotics for COPD exacerbation/possible pneumonia. With suspected bronchiolitis. See notes from pulmonary diseases and infectious diseases. CONDITION AT DISCHARGE: Patient feels good. She has no resting dyspnea; on 3 L/min of nasal cannula oxygen (baseline). She does have mild cough but not wheezing. Denies chest pain. Denies abdominal pain, nausea and vomiting. Skin: Free of rash and discoloration. Respiratory: Normal breath sounds with no crackles and wheezes bilaterally. GI: Abdomen is flat and soft with no palpable mass or visceromegaly. Neuro exam: There is no focal deficits. Normal speech, swallowing and gait. SEE DISCHARGE ORDERS/MEDICATIONS.. Discharge discussed with: patient, nurse - Time Spent with Patient Total time spent providing and/or coordinating discharge services: Greater than 30 minutes (45 minutes) - Discharge Medications Prescriptions: 3% Sodium Chloride Inhalation 4 ml IH Q12HR #60 vial.neb Acetylcysteine 10% 2 ml IH [id number] #60 inhsol Albuterol Neb [Proventil Neb] 2.5 mg IH TIDR #120 inhsol Azithromycin [Zithromax] 500 mg PO Q48H #30 tablet Sulfamethoxazole/Trimeth DS [Bactrim DS] 1 each PO DAILY #30 tablet Home Medications: Aspirin 81 mg PO DAILY 10/12/16 [History] Atorvastatin [Lipitor] 40 mg PO HS 10/12/16 [History] Budesonide/Formoterol 160/4.5 [Symbicort 160/4.5] 2 puff IH BIDR 10/12/16 [ History] Furosemide [Lasix] 20 mg PO QPM 10/12/16 [History] Furosemide [Lasix] 40 mg PO QAM 10/12/16 [History] Metoprolol XL (24 HR) Succ [Toprol Xl] 50 mg PO DAILY 04/07/17 [History] Loratadine [Claritin] 10 mg PO DAILY 03/11/17 [History] Sevelamer [Renvela] 4,000 mg PO TIDWM 03/11/17 [History] Pregabalin [Lyrica] 50 mg PO BID 11/22/17 [History] B Complex W-C No.20/Folic Acid [Virt-Caps Softgel] 1 mg PO DAILY 01/01/18 [ History] Hydralazine HCl 50 mg PO TID 03/17/18 [History] Levothyroxine Sodium [Levoxyl] 50 mcg PO DAILY 03/17/18 [History] amLODIPine [Norvasc] 5 mg PO BID 03/17/18 [History] Acetylcysteine [P-Vkksif-e-Cysteine] 600 mg PO BID 04/17/18 [History] Losartan [Cozaar] 50 mg PO DAILY #60 tablet 05/07/18 [Rx] HYDROcodone BIT/Homatropine LQ [Hycodan Syrup] 5 ml PO Q6H PRN 05/19/18 [History ] predniSONE [PredniSONE] 10 mg PO DAILY 05/19/18 [History] 3% Sodium Chloride Inhalation 4 ml IH Q12HR #60 vial.neb 05/23/18 [Rx] Acetylcysteine 10% 2 ml IH [id number] #60 inhsol 05/23/18 [Rx] Albuterol Neb [Proventil Neb] 2.5 mg IH TIDR #120 inhsol 05/23/18 [Rx] Azithromycin [Zithromax] 500 mg PO Q48H #30 tablet 05/23/18 [Rx] Sulfamethoxazole/Trimeth DS [Bactrim DS] 1 each PO DAILY #30 tablet 05/23/18 [Rx ] Allergies/Adverse Reactions: 3 Allergy/AdvReac Type Severity Reaction Status Date / Time codeine Allergy Rash Verified 05/02/18 15:33 gabapentin Allergy Itching Verified 05/02/18 15:33 Date of admission: 05/19/18 10:01 Primary care physician: Vladimir Chaidez MD Consults: 05/19/18 10:15 Consult to Dialysis [CONS] ONCE 05/20/18 08:45 Consult to Dialysis [CONS] ONCE 05/20/18 10:15 Consult to Dialysis [CONS] ONCE 05/21/18 08:45 Consult to Dialysis [CONS] ONCE 05/22/18 07:30 Consult to Dialysis [CONS] ONCE 05/22/18 09:20 Consult to City Treasurer [CONS] Routine Reason for SW Consult: percussion vest 05/22/18 10:02 Consult to Infectious Diseases [CONS] Routine Consulting Provider: Infectious Disease Makenzie Reason for Consult: Recurrent admissions for airway mucus plugging, h/o- tracheobronchomalacia and bronchiectasis; cultures negative; ABx recommendations; Call Completed: Yes 05/19/[address] Marko Quintana 05/22/18 12:02 Consult to Respiratory Therapy [CONS] Routine Reason for Consult: Acapella TID with albuterol nebs Call Completed: Yes Discharging clinician: Zbigniew Wong Anticipated date of discharge: 05/23/18 - Constitutional Vitals: Temp Pulse Resp BP Pulse Ox 98.1 F 70 16 92/55 97 05/23/18 11:08 05/23/18 11:08 05/23/18 11:08 05/23/18 11:08 05/23/18 11:08 General appearance: Present: cooperative, no acute distress, answers questions appropriately - Patient Status Disposition: Home Health Service Condition: Fair Functional capacity at discharge: independent ambulation Overall status at discharge: patient is back to baseline - Discharge Instructions Follow Up With: Vladimir Chaidez MD [Primary Care Provider] - 05/29/18 3:00 pm (Please follow up as schedule...) Delon Lazo MD [Partnered Physician] - 06/07/18 1:30 pm (Please follow up as schedule...) Additional Instructions: Chest percussion vest - use twice a day.. - Diet and Activity Activity: increase activity as tolerated, wear oxygen at all times (3 l/min) Diet: advance to your usual diet - VTE Deep Vein Thrombosis/Pulmonary Embolism Present on Admission: No
--- NOTE | 2018-05-23 14:18 | Physician Discharge Referral ---
Home Health/Hosp Referral Info Transfer to: Home Health Provider in Charge Post Discharge: PCP - Diagnosis (1) COPD exacerbation Priority: Primary Status: Acute (2) Pneumonia involving left lung Priority: Primary Status: Suspected (3) Mucus plugging of bronchi Priority: Secondary Status: Chronic (4) Collapse of left lung Priority: Secondary Status: Acute (5) Acute and chronic respiratory failure with hypoxia Priority: Primary Status: Acute (6) End stage renal disease on dialysis Priority: Secondary Status: Chronic (7) Anemia in chronic kidney disease (CKD) Priority: Secondary Status: Chronic (8) PAF (paroxysmal atrial fibrillation) Priority: Secondary Status: Chronic (9) Essential hypertension Priority: Secondary Status: Chronic - Respiratory Orders Oxygen / L per min (3 l/min) Smoking Cessation: Smoking cessation has been advised. For more information, call the [employer] Quit Line at 1-740-HGGM-NOW. - Diet/Nutrition Diet/Nutrition Orders: Regular - Activity Activity Orders: Up ad gaston - Services Needed Following services are medically necessary services: Nursing (Chest percussion and oxygen/neb treatments..) - Transfer Medications Prescriptions: 3% Sodium Chloride Inhalation 4 ml IH Q12HR #60 vial.neb Acetylcysteine 10% 2 ml IH [id number] #60 inhsol Albuterol Neb [Proventil Neb] 2.5 mg IH TIDR #120 inhsol Azithromycin [Zithromax] 500 mg PO Q48H #30 tablet Sulfamethoxazole/Trimeth DS [Bactrim DS] 1 each PO DAILY #30 tablet Home Medications: Aspirin 81 mg PO DAILY 10/12/16 [History] Atorvastatin [Lipitor] 40 mg PO HS 10/12/16 [History] Budesonide/Formoterol 160/4.5 [Symbicort 160/4.5] 2 puff IH BIDR 10/12/16 [ History] Furosemide [Lasix] 20 mg PO QPM 10/12/16 [History] Furosemide [Lasix] 40 mg PO QAM 10/12/16 [History] Metoprolol XL (24 HR) Succ [Toprol Xl] 50 mg PO DAILY 01/14/17 [History] Loratadine [Claritin] 10 mg PO DAILY 03/11/17 [History] Sevelamer [Renvela] 4,000 mg PO TIDWM 03/11/17 [History] Pregabalin [Lyrica] 50 mg PO BID 11/22/17 [History] B Complex W-C No.20/Folic Acid [Virt-Caps Softgel] 1 mg PO DAILY 01/01/18 [ History] Hydralazine HCl 50 mg PO TID 03/17/18 [History] Levothyroxine Sodium [Levoxyl] 50 mcg PO DAILY 03/17/18 [History] amLODIPine [Norvasc] 5 mg PO BID 03/17/18 [History] Acetylcysteine [P-Tmjskn-q-Cysteine] 600 mg PO BID 04/17/18 [History] Losartan [Cozaar] 50 mg PO DAILY #60 tablet 05/07/18 [Rx] HYDROcodone BIT/Homatropine LQ [Hycodan Syrup] 5 ml PO Q6H PRN 05/19/18 [History ] predniSONE [PredniSONE] 10 mg PO DAILY 05/19/18 [History] 3% Sodium Chloride Inhalation 4 ml IH Q12HR #60 vial.neb 05/23/18 [Rx] Acetylcysteine 10% 2 ml IH [id number] #60 inhsol 05/23/18 [Rx] Albuterol Neb [Proventil Neb] 2.5 mg IH TIDR #120 inhsol 05/23/18 [Rx] Azithromycin [Zithromax] 500 mg PO Q48H #30 tablet 05/23/18 [Rx] Sulfamethoxazole/Trimeth DS [Bactrim DS] 1 each PO DAILY #30 tablet 05/23/18 [Rx ] Allergies/Adverse Reactions: 3 Allergy/AdvReac Type Severity Reaction Status Date / Time codeine Allergy Rash Verified 05/02/18 15:33 gabapentin Allergy Itching Verified 05/02/18 15:33 Certification: Further, I certify that my clinical findings support that this patient is homebound (i.e. absences from home require considerable and taxing effort and are for medical reasons or temple services or infrequently or short duration when for other reasons) because: Homebound Reason: Patient requires assistance of a person or device to safely leave home Attestation: My signature below is to certify that this patient is under my care and that I, or nurse practitioner, or a physician's assistant controller working with me, has a face-to -face encounter with this patient.
[2018-05-24 05:40] LABS: Influenza A PCR Body Fluid NOT DETECTED; Influenza B PCR Body Fluid NOT DETECTED; RVP Body Fluid Source BAL LUL
[2018-05-24 12:55] LABS: RSV PCR Body Fluid NOT DETECTED
== END 2018-05-23 14:28 | disposition home health service (06) | DRG 166 ==
LOC: EMEROO 08:22 → SUATTDRO 10:01 → ICNU 10:01 → 2ANU 05-21 18:34
PROVIDERS: ADMIT Internal Medicine Pulmonary Disease; ATTEND Internal Medicine

== ENCOUNTER 2018-07-30 10:21 | Inpatient (IN) ==
[2018-07-30] MEDS ORDERED: Ipratropium/Albuterol Neb 3 ML IH ONE (10:38)
[2018-07-30] MEDS ORDERED: Albuterol 2.5 MG/3 ML NEBULIZER IH ONE ×2 (10:38→21:43)
[2018-07-30] MEDS ORDERED: *HR* Etomidate 20 MG/10 ML AMPUL IVP ONE (10:43)
[2018-07-30] MEDS ORDERED: *HR* Midazolam HCl 5 MG/5 ML VIAL IVP ONE (10:43)
[2018-07-30] MEDS ORDERED: Albuterol 2.5 MG/3 ML NEBULIZER ONE (10:46)
[2018-07-30] MEDS ORDERED: methylPREDNISolone 125 MG/2 ML VIAL IVP ONE (10:58)
--- NOTE | 2018-07-30 11:00 | Emergency Department Note ---
Disposition Clinical Impression: Fluid overload Qualifiers: Hypervolemia type: unspecified Qualified Code(s): E87.70 - Fluid overload, unspecified COPD (chronic obstructive pulmonary disease) Qualifiers: COPD type: COPD with acute exacerbation Qualified Code(s): J44.1 - Chronic obstructive pulmonary disease with (acute) exacerbation Disposition: Admitted As Inpatient Condition: Good Forms: ED Satisfaction Letter Time of Disposition: 13:18 General Adult HPI - General Chief complaint: ED Shortness of Breath/Dyspnea Stated complaint: LAKISHA Time Seen by Provider: 07/30/18 10:37 Source: patient, family Limitations: no limitations - History of Present Illness HPI Narrative: This is a 77-year-old female brought in by family because of shortness of breath that apparently began 12-18 hours prior to arrival. states that she had been doing pretty well until last night, but was unable to sleep because she was too short of breath. She uses oxygen all the time at home. She has had a cough for the last several days. Pain Scale: 0 - Related Data Home Medications Medication Instructions Recorded Confirmed Aspirin 81 mg PO DAILY 10/12/16 05/19/18 Atorvastatin [Lipitor] 40 mg PO HS 10/12/16 05/19/18 Budesonide/Formoterol 160/4.5 2 puff IH BIDR 10/12/16 05/19/18 [Symbicort 160/4.5] Furosemide [Lasix] 20 mg PO QPM 10/12/16 05/19/18 Furosemide [Lasix] 40 mg PO QAM 10/12/16 05/19/18 Metoprolol XL (24 HR) Succ [Toprol 50 mg PO DAILY 01/14/17 05/19/18 Xl] Loratadine [Claritin] 10 mg PO DAILY 03/11/17 05/19/18 Sevelamer [Renvela] 4,000 mg PO TIDWM 03/11/17 05/19/18 Pregabalin [Lyrica] 50 mg PO BID 11/22/17 05/19/18 B Complex W-C No.20/Folic Acid 1 mg PO DAILY 01/01/18 05/19/18 [Virt-Caps Softgel] Hydralazine HCl 50 mg PO TID 03/17/18 05/19/18 Levothyroxine Sodium [Levoxyl] 50 mcg PO DAILY 03/17/18 05/19/18 amLODIPine [Norvasc] 5 mg PO BID 03/17/18 05/19/18 Acetylcysteine 600 mg PO BID 04/17/18 05/19/18 [E-Mdxywp-r-Cysteine] HYDROcodone BIT/Homatropine LQ 5 ml PO Q6H PRN 05/19/18 05/19/18 [Hycodan Syrup] predniSONE [PredniSONE] 10 mg PO DAILY 05/19/18 05/19/18 Previous Rx's Medication Instructions Recorded Losartan [Cozaar] 50 mg PO DAILY #60 tablet 05/07/18 3% Sodium Chloride Inhalation 4 ml IH Q12HR #60 vial.neb 05/23/18 Acetylcysteine 10% 2 ml IH [id number] #60 inhsol 05/23/18 Albuterol Neb [Proventil Neb] 2.5 mg IH TIDR #120 inhsol 05/23/18 Azithromycin [Zithromax] 500 mg PO Q48H #30 tablet 05/23/18 Sulfamethoxazole/Trimeth DS 1 each PO DAILY #30 tablet 05/23/18 [Bactrim DS] Allergies Allergy/AdvReac Type Severity Reaction Status Date / Time codeine Allergy Rash Verified 05/02/18 15:33 gabapentin Allergy Itching Verified 05/02/18 15:33 All systems ED: reviewed and negative except as stated. Cardiovascular: Denies: chest pain Respiratory: Reports: cough, dyspnea Past Medical History - Past Medical History Medical history: Reports: atrial fibrillation, COPD, DVT, dialysis, hyperlipidemia, hypertension, osteoporosis, renal disease, other Surgical history: Reports: other Psychiatric history: Reports: no psych history - Social History Smoking Status: Never smoker Smokeless Tobacco Status: No Alcohol use: Reports: none Drug use: Reports: none Physical Exam - General Limitations: no limitations General appearance: alert, in distress (In moderate to severe restaurant distress) - Head Head exam: atraumatic, normocephalic, normal inspection - Eye Eye exam: Present: normal appearance, PERRL, EOMI - Chest Chest inspection: Present: normal inspection, symmetric chest wall rise - Respiratory Respiratory exam: Present: other (Breath sounds are diminished in all marquez with expiratory wheezes in all marquez, accessory muscle use, prolonged expiratory phase, rapid respiratory rate; bedside long ultrasound showed a lines with no B-lines) - Cardiovascular Cardiovascular exam: Present: regular rate, normal rhythm, normal heart sounds - Abdominal Exam Abdominal exam: Present: soft, Non-Tender. Absent: tenderness, distention, guarding, rebound, rigidity - Extremities Exam Extremities exam: Present: normal inspection, pedal edema (There is nonpitting bilateral pedal edema) - Neurological Exam Neurological exam: Present: alert, oriented X3 - Psychiatric Psychiatric exam: Present: normal affect, anxious - Skin Skin exam: Present: warm, dry, intact, normal color Course Course Narrative: This is a 77-year-old female who appears to be in a COPD exacerbation. Vital Signs Temperature 97 F L 07/30/18 10:23 Pulse Rate 90 07/30/18 10:23 Respiratory Rate 22 07/30/18 10:23 Blood Pressure 169/85 07/30/18 10:23 O2 Sat by Pulse Oximetry 89 07/30/18 10:23 Temperature 98.3 F 07/30/18 10:32 Pulse Rate 87 07/30/18 11:29 Respiratory Rate 24 07/30/18 10:47 Blood Pressure 180/77 07/30/18 11:29 O2 Sat by Pulse Oximetry 95 07/30/18 11:29 Oxygen Delivery Oxygen Delivery Bipap Medical Decision Making - MDM Narrative Medical decision making narrative: This is a 77-year-old female who appears to have fluid overload and COPD exacerbation. - Lab Data Lab results reviewed: Yes I reviewed the patient's lab results. Lab results narrative: CBC shows slight leukocytosis BMP showed slight hyperkalemia at 5.4 Troponin was slightly elevated at 0.07 Result diagrams: 07/30/18 10:44 07/30/18 10:44 Lab Results 07/30/18 07/30/18 07/30/18 Range/Units 10:44 10:44 10:44 WBC 11.8 H (4.3-11.1) K/mcL RBC 4.31 (3.82-4.97) M/mcL Hgb 13.6 (11.5-15.4) g/dL Hct 42.9 (35.3-44.9) % MCV 99.5 (83.0-100.0) fL MCH 31.6 (28.0-33.3) pg MCHC 31.7 (31.6-35.5) g/dL RDW 14.3 (11.5-14.5) % Plt Count 262 (140-400) K/mcL MPV 10.1 (9.4-12.4) fL Immature Gran % 0.9 (0-4) % Seg Neutrophils % 90.3 % Lymphocytes % 4.0 % Monocytes % 4.2 % Eosinophils % 0.3 % Basophils % 0.3 % Neutrophils # 10.6 H (1.6-8.9) K/mcL Lymphocytes # 0.5 L (0.6-4.6) K/mcL Monocytes # 0.5 (0.0-1.3) K/mcL Eosinophils # 0.0 (0.0-0.6) K/mcL Basophils # 0.0 (0.0-0.2) K/mcL Sodium 135 L (136-145) mEq/L Potassium 5.4 H (3.5-5.1) mEq/L Chloride 97 L (98-107) mEq/L Carbon Dioxide 24 (23-29) mEq/L BUN 51 H (8-23) mg/dL Creatinine 6.79 H (0.60-1.20) mg/dL Est GFR ( Amer) 7 L (> 60) Est GFR (Non-Af Amer) 6 L (> 60) BUN/Creatinine Ratio 8 (6-26) Glucose 80 (70-105) mg/dL Calculated Osmolality 293 (280-300) Lactic Acid 1.0 (0.5-2.2) mmol/L Calcium 9.5 (8.6-10.3) mg/dL Troponin I 0.07 H* (< 0.04) ng/mL - Radiology Data Radiology results reviewed: Yes I reviewed the patient's radiology results. Chest x-ray is consistent with fluid overload Critical Care Time Critical Care Time: Yes Total Critical Care Time: 20 Attestation: 20 minutes of critical care time was invested separate from other billable procedures
[2018-07-30 11:21] LABS: Basophils % 0.3 %; Eosinophils % 0.3 %; Hematocrit 42.9 % (35.3-44.9); Hemoglobin 13.6 g/dL (11.5-15.4); Immature Granulocytes % 0.9 % (0-4); Lymphocytes # 0.5 K/mcL (0.6-4.6); Mean Corpuscular HGB Conc 31.7 g/dL (31.6-35.5); Mean Corpuscular Hemoglobin 31.6 pg (28.0-33.3); Mean Corpuscular Volume 99.5 fL (83.0-100.0); Mean Platelet Volume 10.1 fL (9.4-12.4); Monocytes # 0.5 K/mcL (0.0-1.3); Monocytes % 4.2 %; Neutrophils # 10.6 K/mcL (1.6-8.9); Platelet Count 262 K/mcL (140-400); Red Blood Count 4.31 M/mcL (3.82-4.97); Red Cell Distribution Width 14.3 % (11.5-14.5); Segmented Neutrophils % 90.3 %
[2018-07-30 11:27] LABS: Calcium 9.5 mg/dL (8.6-10.3); Potassium 5.4 mEq/L (3.5-5.1)
[2018-07-30 11:35] LABS: Troponin I 0.07 ng/mL (< 0.04)
[2018-07-30] MEDS ORDERED: Nitroglycerin 0.4 MG TAB.SUBL SL PRN (13:24)
--- NOTE | 2018-07-30 13:50 | Internal Med History&Physical ---
Date of Encounter: 07/30/18 Time of Encounter: 13:50 Internal Medicine - H&P: HPI Chief complaint: SOB History of present illness: Ms. Carmona is a 77 year old female brought with PMH of COPF and ESRD on HD MWF who dialyzed on HD MWF who was last dialyzed on Tuesday and is presenting with sever shortness of breath associated with cough. She has had a cough for the last several days. The patient was evaluated by the ER staff and x ray of her chest revealed Pulmonary vascular congestion and mild cardiomegaly. Left perihilar airspace opacity could represent asymmetric edema but could also represent pneumonia. Questionable trace bilateral pleural effusions was also noted. The patient is anuric and appears to be volume over load, she was s tarted on steroids, respiratory treatment and ABs for possible COPD exacerbation with no improvement. Nephrology was consulted for further evaluation of the possible need for additional HD vs PUF for volume control. Past Med Surg Social Fam HX - Past Medical History Medical history: atrial fibrillation, COPD, DVT, dialysis, hyperlipidemia, hypertension, osteoporosis, renal disease, other Additional medical history: broken right foot (2001), left arm fistula Psychiatric history: no psych history - Past Surgical History Surgical History: other Additional surgical history: back surgery L4-L5, , left nephrectomy for donation, cataract removal, CTR-left, A-V fistula placed in left arm. - Social History Smoking Status: Never smoker Smokeless Tobacco Status: No Alcohol use: none Drug use: none - Family History Mother Adopted: No Family Member Ethnicity: Non- Living Status: Hx Family Cardiac Disorders: No Hx Family Respiratory Disorders: No Hx Family Cancer: Yes Hx Family GI Disorders: No Hx Family Endocrine Disorder: No Hx Family Neuromuscular Disorders: No Hx Family Neurologic Disorders: No Hx Family HEENT Disorders: No Hx Family Autoimmune Disorders: No Internal Medicine - H&P: Meds RX: Aspirin 81 mg PO DAILY 10/12/16 [History] RX: Atorvastatin [Lipitor] 40 mg PO HS 10/12/16 [History] RX: Budesonide/Formoterol 160/4.5 [Symbicort 160/4.5] 2 puff IH BIDR 10/12/16 [History] RX: Furosemide [Lasix] 20 mg PO QPM 10/12/16 [History] RX: Furosemide [Lasix] 40 mg PO QAM 10/12/16 [History] RX: Metoprolol XL (24 HR) Succ [Toprol Xl] 50 mg PO DAILY 01/14/17 [History] RX: Loratadine [Claritin] 10 mg PO DAILY 03/11/17 [History] RX: Sevelamer [Renvela] 4,000 mg PO TIDWM 03/11/17 [History] RX: Pregabalin [Lyrica] 50 mg PO BID 11/22/17 [History] RX: B Complex W-C No.20/Folic Acid [Virt-Caps Softgel] 1 mg PO DAILY 01/01/18 [History] RX: Hydralazine HCl 50 mg PO TID 03/17/18 [History] RX: Levothyroxine Sodium [Levoxyl] 50 mcg PO DAILY 03/17/18 [History] RX: amLODIPine [Norvasc] 5 mg PO BID 03/17/18 [History] RX: Acetylcysteine [G-[place]-g-Cysteine] 600 mg PO BID 04/17/18 [History] RX: Losartan [Cozaar] 50 mg PO DAILY #60 tablet 05/07/18 [Rx] RX: HYDROcodone BIT/Homatropine LQ [Hycodan Syrup] 5 ml PO Q6H PRN 05/19/18 [History] RX: predniSONE [PredniSONE] 10 mg PO DAILY 05/19/18 [History] RX: 3% Sodium Chloride Inhalation 4 ml IH Q12HR #60 vial.neb 05/23/18 [Rx] RX: Acetylcysteine 10% 2 ml IH [id number] #60 inhsol 05/23/18 [Rx] RX: Albuterol Neb [Proventil Neb] 2.5 mg IH TIDR #120 inhsol 05/23/18 [Rx] RX: Azithromycin [Zithromax] 500 mg PO Q48H #30 tablet 05/23/18 [Rx] Allopurinol [Zyloprim 100 MG] 100 mg PO DAILY 07/30/18 [History] Ipratropium/Albuterol Neb [Duoneb] 3 ml IH Q6HR 07/30/18 [History] Sulfamethoxazole/Trimeth DS [Bactrim DS] 1 tab PO DAILY 07/30/18 [History] Tiotropium [place] [Spiriva Respimat] 2 puff IH DAILY 07/30/18 [History] Allergy/AdvReac Type Severity Reaction Status Date / Time codeine Allergy Rash Verified 07/30/18 14:27 gabapentin Allergy Itching Verified 07/30/18 14:27 All Systems PM: A 10-system review of systems was performed and is negative for pertinent findings except as documented above in the HPI. - Constitutional Constitutional: fatigue - Respiratory Respiratory: cough, dyspnea, dyspnea on exertion, wheezing - Gastrointestinal Gastrointestinal: no abdominal pain, no diarrhea, no hematemesis, no hematochezia, no melena, no nausea, no vomiting - Genitourinary Genitourinary: no change in urinary stream, no dysuria, no flank pain, no hematuria - Neurological Neurological ROS: no confusion, no convulsions, no focal weakness, no numbness, no tingling, no tremor(s) - Constitutional Vitals: Temp Pulse Resp BP Pulse Ox 98.3 F 87 25 180/77 88 07/30/18 10:32 07/30/18 11:29 07/30/18 13:27 07/30/18 11:29 07/30/18 13:27 General appearance: Present: A&O X 3 Exam: As below - Head Head exam: Present: atraumatic, normocephalic - Neck Neck exam general surgery: Present: supple, trachea midline. Absent: lymphadenopathy - Respiratory Respiratory exam: Present: decreased breath sounds, respiratory distress, rhonchi, wheezes. Absent: accessory muscle use, rales - Cardiovascular Cardiovascular exam: Present: RRR, +S1, +S2. Absent: diastolic murmur, gallop, rubs, systolic murmur - GI/Abdominal GI/Abdominal exam: Present: normal bowel sounds, soft, no peritoneal signs. Abs ent: distended, tenderness - Extremities Exam Extremities exam: Present: cyanotic, pedal edema, warm. Absent: calf tenderness Internal Med - H&P Results - Labs CBC & Chem 7: 08/07/18 03:11 08/07/18 03:11 Labs: Short CBC 07/30/18 Range/Units 10:44 WBC 11.8 H (4.3-11.1) K/mcL Hgb 13.6 (11.5-15.4) g/dL Hct 42.9 (35.3-44.9) % Plt Count 262 (140-400) K/mcL Neutrophils # 10.6 H (1.6-8.9) K/mcL BMP 07/30/18 10:44 Sodium 135 L Potassium 5.4 H Chloride 97 L Carbon Dioxide 24 BUN 51 H Creatinine 6.79 H Glucose 80 Calcium 9.5 Cardiac Enzymes 07/30/18 Range/Units 10:44 Troponin I 0.07 H* (< 0.04) ng/mL - Impressions ITS Impressions Chest X-Ray 07/30/18 10:38 IMPRESSION: 1. Pulmonary vascular congestion and mild cardiomegaly. Left perihilar airspace opacity could represent asymmetric edema but could also represent pneumonia. 2. Bibasilar airspace opacities worse on the right, potentially atelectasis, pneumonia, and/or aspiration. 3. Questionable trace bilateral pleural effusions. D/ / Keegan Sims MD / Keegan Sims MD Interpreting Provider: Keegan Sims MD - Assessment and plan (1) Acute respiratory distress Current Visit: No Status: Acute Assessment and plan: Most likely 2/2 volume over load.she was started on steroids, respiratory tr eatment and ABs for possible COPD exacerbation with no improvement. Nephrology was consulted for further evaluation of the possible need for additional HD vs PUF for volume control. Thed patient will received stat PUF session tonight. (2) ESRD on dialysis Current Visit: Yes Status: Chronic Assessment and plan: MWF, Last HD Tuesday. For PUF TONIGHT (3) COPD (chronic obstructive pulmonary disease) Current Visit: Yes Status: Chronic Assessment and plan: The patient has history of COPD, X ray are revealing a picture of Volume overload but pneumonia cant be excluded, ER started steroids and ABs, we will continue steroid IV and ABs for possible HCAP Qualifiers: COPD type: COPD with acute exacerbation Qualified Code(s): J44.1 - Chronic obstructive pulmonary disease with (acute) exacerbation (4) HTN (hypertension) Current Visit: No Status: Chronic Qualifiers: Hypertension type: essential hypertension Qualified Code(s): I10 - Essential (primary) hypertension (5) Volume overload Current Visit: Yes Status: Acute Assessment and plan: The patient is anuric, nephrology arranged for PUF to optimize fluid removal. Qualifiers: Hypervolemia type: unspecified Qualified Code(s): E87.70 - Fluid overload, unspecified (6) Hyperkalemia Current Visit: Yes Status: Resolved Assessment and plan: K is mildly elevated, for HD in AM . no ECG changes. Addendum: The patient became hemodynamically stable during PUF treatment, 2800 cc were removed. Myself and Dr. Keita responded to bedside she still appears to be in sever respiratory distress and volume overload, ABs for possible pneumonia were not given in The ER. We stared steroids, Respiratory treatment, ABs coverage for possible HCAP with vancomycin, Zosyn, Levaquin. Dr. Keita was concerned about possible aspergillosis so itraconazole was added. The patient was transferred to ICU. I signed off to Bailee Hermosillo for further evaluation and management. - Time Spent With Patient Total time spent is greater than 50% in coordination of care (as documented) at patient's floor/unit and/or counseling patient:
[2018-07-30] MEDS ORDERED: Acetaminophen 325 MG TABLET PO PRN (14:32)
[2018-07-30] MEDS ORDERED: Naloxone 0.4 MG/ML INJ IVP PRN (14:32)
[2018-07-30] MEDS ORDERED: Nitroglycerin 1 INCH/GM PACKET TP ONE (16:38)
[2018-07-30] MEDS ORDERED: Furosemide 80 MG in 0.9 % Sodium Chloride 50 ML IVPB ONE (16:44)
[2018-07-30 16:53] LABS: Chol/HDL Ratio 2.1 (0-4.9)
[2018-07-30] MEDS ORDERED: 0.9 % Sodium Chloride 250 ML IVC PRN (18:40)
[2018-07-30] MEDS ORDERED: 0.9 % Sodium Chloride 1,000 ML PRIME SCH (18:45)
--- NOTE | 2018-07-30 20:41 | Event Note ---
Date of Encounter: 07/30/18 Time of Encounter: 20:37 Called to Acute Dialysis urgently for concerns of severe respiratory distress. Patient was in acute dialysis for fluid removal and CHF. Acute dialysis was stopped early due to patient intolerance and hemodynamic instability. Patient is struggling to breathe on maximal BiPap support. I requested transfer to ICU and will likely proceed with intubation and mechanical ventilation soon. I discussed this with patient. She wishes to try BiPap for a short while longer but is willing to proceed with intubation if necessary. I asked RT to obtain ABG and we will reassess shortly. If she decompensates further, we will proceed with ETT.
[2018-07-30 20:44] LABS: ABG Base Excess -1 mEq/L (-2 to 3); ABG HCO3 25 mEq/L (21-27); ABG Oxygen Saturation 94 % (95-98); ABG PCO2 43 mmHg (35-45); ABG PH 7.37 pH Units (7.32-7.45); ABG PO2 72 mmHg (85-104); ABG TCO2 26 mEq/L (20-26); Blood Gas Modality avaps; Blood Gas PEEP 8 cm H2O; Blood Gas VT 450 cc
[2018-07-30 20:56] LABS: Hepatitis B Surface Antigen Nonreactive (Nonreactive)
[2018-07-30] MEDS ORDERED: Levofloxacin 750 MG/150 ML 750 MG/150 ML BAG IVPB SCH (21:00)
[2018-07-30] MEDS ORDERED: Vancomycin 1 EACH in 0.9 % Sodium Chloride 250 ML IVPB PRN (21:00)
[2018-07-30 21:24] LABS: INR 0.9
[2018-07-30 21:26] LABS: Activated Partial Thrombo Time 29.5 Seconds (26.0-36.0)
[2018-07-30] MEDS ORDERED: *HR* Dextrose 50 % in Water (Syg) 50 ML SYRINGE IVP ONE (21:42)
[2018-07-30] MEDS ORDERED: Insulin Human Regular 10 UNIT in 0.9 % Sodium Chloride 10 ML IV ONE (21:42)
[2018-07-30] MEDS ORDERED: Calcium Gluconate 2,000 MG in 0.9 % Sodium Chloride 100 ML IVPB ONE (21:43)
[2018-07-30] MEDS: Piperacillin/Tazobactam 3.375 GM in 0.9 % Sodium Chloride Mini Bag 100 ML IVPB SCH (21:52)
[2018-07-30] MEDS ORDERED: Artificial Tears SOLN 15 ML BOTTLE BOTH EYES PRN (22:38)
--- NOTE | 2018-07-30 22:38 | Procedure Note ---
<Curtis Castañeda - Last Filed: 07/30/18 22:37> Date of procedure: 07/30/18 Pre-op diagnosis: acute respiratory failure Post-op diagnosis: same Procedure: A time-out was completed verifying correct patient, procedure, site, positioning, and special equipment if applicable. The patient was placed in a flat position. Sedation was obtained using Versed 4mg, and additionally with Etomidate 20mg. The patient was easily ventilated using an ambu bag. The MAC 3 BLADE was used and inserted into the oropharynx at which time there was a Grade 1 view of the vocal cords. A 7.5-austrian endotracheal tube was inserted and visualized going through the vocal cords. The stylette was removed. Colorimetric change was visualized on the CO2 meter. Breath sounds were heard in both lung marquez equally. The endotracheal tube was placed at 22 cm, measured at the teeth. Dr. hilario Anesthesia: IV sedation Surgeon: Curtis Castañeda Was there an assistant director of residence life present: No Estimated blood loss (cc): 0 Specimen: none Pathology: none sent Condition: critical Disposition: ICU <Archie Mora - Last Filed: 07/31/18 06:10> Procedure: I was present and supervised procedure. Dr. Castañeda was successful on first attempt.
--- NOTE | 2018-07-30 22:56 | Event Note ---
Date of Encounter: 07/30/18 Time of Encounter: 22:38 After the initial episode in acute dialysis and transition to the ICU, I discussed the patient case with Dr. Gauthier via telephone. He is very familiar with the patient and agrees with the plan of care. He requested to avoid intubation if possible, continue BiPAP, and monitor closely in ICU. He was hopeful that we can avoid intubation. However, if she decompensates and/or has worsening hypoxemia, he agreed with proceeding with intubation. We therefore held off intubating and monitored her closely in ICU on BiPAP. Despite full aggressive measures, she has become more hypoxemic, tachypneic, and developed increasing somnolence. We were called to bedside by her nurse lianet uesting intubation. At that time, I assessed patient and briefly explained to her that we need to proceed with intubation and mechanical ventilation. She was somnolent but arousable. She voiced understanding and agreed to proceed with intubation. She was in obvious respiratory distress and breathing roughly 44 breaths per minute with decreasing oxygen saturation. We therefore prepared for intubation and ongoing critical care support. Please see Dr. Castañeda's intubation note for full details. Once airway was secured, we placed an OG tube. We will continue ICU critical care treatment and monitoring. Of note, patient does have worsening hyperkalemia. Dr. Castañeda contacted Dr. Goodman from nephrology department and discussed the hyperkalemia. Dr. Goodman requested administering 45 g Kayexalate in addition to the calcium gluconate, dextrose, and insulin. We will trend her potassium after above measures. If this continues to climb, she will likely need urgent dialysis again. Exam: General: Somnolent, arousable, tachypneic, markedly increased work of breathing Chest exam as examined previously and prior to intubation: Diffuse crackles throughout, predominantly right base. She also had diffuse wheezing, tachypnea, and intercostal muscle retractions. Regular rhythm; distant heart sounds: unable to assess for murmur. Abdomen: Soft and nontender, positive bowel sounds. Extremities: Cool extremities, palpable pulses, cap refill about 2 seconds. Pertinent Labs: Sodium 135 Potassium 6.5 Chloride 97 CO2 24 BUN 51 Creatinine 6.79 Impression/plan: 1. Acute respiratory failure: Status post intubation per Dr. Castañeda, ongoing vent management and critical care support in the ICU, consult flake miller helper for ongoing ICU management in the morning. 2. 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 I called pharmacy and discussed with them. I am empirically placing her on vancomycin, Zosyn, Le vaquin, and itraconazole (aspergillosis) as advised by pharmacy. 3. COPD exacerbation: Continue high-dose IV steroids, aerosols, and antibiotics as above. 4. Hyperkalemia: Kayexalate to be given via OG tube, calcium gluconate IV, insulin, dextrose, and aerosols as above. Repeat potassium will be monitored closely and discussed with Dr. Goodman for possible urgent dialysis. Please note: Total 75 minutes critical care time spent thus far including initial assessment in acute dialysis, ongoing reassessment, and urgent intervention as above.
[2018-07-30] MEDS: MethylPREDNISolone 40 MG/ML VIAL IVP SCH (23:18)
[2018-07-30] MEDS: Ipratropium/Albuterol Neb 3 ML IH SCH (23:21)
[2018-07-31] MEDS ORDERED: MethylPREDNISolone 40 MG/ML VIAL IVP SCH
[2018-07-31] MEDS: FentaNYL (PF) 1,000 MCG in 0.9 % Sodium Chloride 80 ML IVC SCH ×2 (00:07→20:31)
[2018-07-31 00:33] LABS: ABG Base Excess -2 mEq/L (-2 to 3); ABG HCO3 26 mEq/L (21-27); ABG Oxygen Saturation 92 % (95-98); ABG PCO2 58 mmHg (35-45); ABG PH 7.26 pH Units (7.32-7.45); ABG PO2 74 mmHg (85-104); ABG TCO2 28 mEq/L (20-26); Blood Gas Modality PRVC; Blood Gas PEEP 5 cm H2O; Blood Gas Respiration Rate 12; Blood Gas VT 350 cc
[2018-07-31] MEDS: *HR* Heparin 5,000 UNIT/ML VIAL SQ SCH ×3 (01:05→17:32)
[2018-07-31] MEDS: Artificial Tears SOLN 15 ML BOTTLE BOTH EYES SCH ×6 (01:07→20:31)
[2018-07-31 02:01] LABS: Hepatitis B Surface Antibody 1.25 mIU/mL
[2018-07-31 04:26] LABS: Basophils % 0.1 %; Immature Granulocytes % 0.6 % (0-4); Lymphocytes # 0.1 K/mcL (0.6-4.6); Lymphocytes % 0.4 %; Mean Corpuscular HGB Conc 31.9 g/dL (31.6-35.5); Mean Corpuscular Hemoglobin 31.8 pg (28.0-33.3); Mean Corpuscular Volume 99.4 fL (83.0-100.0); Mean Platelet Volume 10.6 fL (9.4-12.4); Neutrophils # 21.7 K/mcL (1.6-8.9); Platelet Count 203 K/mcL (140-400); Red Blood Count 3.62 M/mcL (3.82-4.97); Red Cell Distribution Width 14.5 % (11.5-14.5); Segmented Neutrophils % 96.9 %
[2018-07-31 04:32] LABS: Albumin 3.6 g/dL (3.5-5.7); Albumin/Globulin Ratio 1.6 (1.1-2.2); Bilirubin,Total 0.5 mg/dL (0.3-1.0); Calcium 9.9 mg/dL (8.6-10.3); Globulin 2.3 g/dL (2.4-3.5); Magnesium 2.2 mg/dL (1.6-2.6); Phosphorous 6.7 mg/dL (2.7-4.5); Potassium 5.6 mEq/L (3.5-5.1); Total Protein 5.9 g/dL (6.4-8.9)
[2018-07-31 05:18] LABS: Hemoglobin 11.5 g/dL (11.5-15.4); Monocytes # 0.5 K/mcL (0.0-1.3)
[2018-07-31] MEDS: Ipratropium/Albuterol Neb 3 ML IH SCH ×4 (05:28→23:18)
[2018-07-31] MEDS: MethylPREDNISolone 40 MG/ML VIAL IVP SCH ×2 (05:59→17:32)
[2018-07-31] MEDS ORDERED: Famotidine 20 MG/2 ML VIAL IVP SCH (06:00)
[2018-07-31 06:06] LABS: Platelet Estimate Normal (Normal)
[2018-07-31 06:21] LABS: ABG Base Excess -4 mEq/L (-2 to 3); ABG HCO3 24 mEq/L (21-27); ABG Oxygen Saturation 94 % (95-98); ABG PCO2 57 mmHg (35-45); ABG PH 7.24 pH Units (7.32-7.45); ABG PO2 85 mmHg (85-104); ABG TCO2 26 mEq/L (20-26); Blood Gas Modality PRVC; Blood Gas PEEP 5 cm H2O; Blood Gas Respiration Rate 12; Blood Gas VT 350 cc
--- NOTE | 2018-07-31 06:47 | Pulmonology Progress Note ---
Date of Encounter: 07/31/18 Time of Encounter: 06:46 Assessment and Plan (1) ESRD on dialysis Current Visit: Yes Status: Chronic Dialysis MWF PUF last night with 2875 mL dialyzed (2) Acute exacerbation of chronic obstructive pulmonary disease (COPD) Current Visit: Yes Status: Acute Intubated Bronchoscopy today Abx: Levaquin, Vancomycin, itraconazole, and zosyn day 2 (3) Collapse of left lung Current Visit: Yes Status: Acute Bronchscopy today for mucus plugging (4) Elevated troponin Current Visit: Yes Status: Acute Trend troponins Heparin SQ BID Dialysis MWF (5) Hyperkalemia Current Visit: Yes Status: Chronic Dialysis MWF PUF last night with 2875 mL dialyzed 45g Kayexelate Insulin with dextrose Calcium gluconate Trend K, emergent dialysis if continues to increase Subjective Principal diagnosis: acute respiratory failure Objective PUL Vital signs: Last Vital Signs Temp 100.3 F H 07/31/18 03:54 Pulse 96 07/31/18 06:00 Resp 17 07/31/18 06:00 BP 90/63 07/31/18 06:00 Pulse Ox 97 07/31/18 06:00 Ventilator Settings Ventilator Settings: Ventilator Settings, Last 8 Hours Ventilator Tidal Volume 350 Setting Ventilator Tidal Volume 350 Setting Ventilator Tidal Volume 350 Setting Ventilator Tidal Volume 350 Setting Ventilator Tidal Volume 350 Setting Ventilator Tidal Volume 350 Setting Ventilator Tidal Volume 350 Setting Ventilator Tidal Volume 350 Setting Ventilator Tidal Volume 350 Setting Ventilator Tidal Volume 350 Setting Ventilator Tidal Volume 350 Setting Ventilator Tidal Volume 350 Setting Ventilator Tidal Volume 350 Setting Ventilator Respiratory Rate 12 Setting Ventilator Respiratory Rate 12 Setting Ventilator Respiratory Rate 12 Setting Ventilator Respiratory Rate 12 Setting Ventilator Respiratory Rate 12 Setting Ventilator Respiratory Rate 12 Setting Ventilator Respiratory Rate 12 Setting Ventilator Respiratory Rate 12 Setting Ventilator Respiratory Rate 12 Setting Ventilator Respiratory Rate 12 Setting Ventilator Respiratory Rate 12 Setting Ventilator Respiratory Rate 12 Setting Ventilator Respiratory Rate 12 Setting Actual Respiratory Rate 17 Actual Respiratory Rate 15 Actual Respiratory Rate 17 Actual Respiratory Rate 18 Actual Respiratory Rate 18 Actual Respiratory Rate 18 Actual Respiratory Rate 18 Actual Respiratory Rate 18 Actual Respiratory Rate 21 Actual Respiratory Rate 21 Actual Respiratory Rate 29 Positive End Expiratory 5 Pressure Positive End Expiratory 5 Pressure Positive End Expiratory 5 Pressure Positive End Expiratory 5 Pressure Positive End Expiratory 5 Pressure Positive End Expiratory 5 Pressure Positive End Expiratory 5 Pressure Positive End Expiratory 5 Pressure Positive End Expiratory 5 Pressure Positive End Expiratory 5 Pressure Positive End Expiratory 5 Pressure Positive End Expiratory 5 Pressure Positive End Expiratory 5 Pressure Peak Inspiratory Airway 8.3 Pressure Peak Inspiratory Airway 12 Pressure Peak Inspiratory Airway 6.4 Pressure Peak Inspiratory Airway 6.4 Pressure Peak Inspiratory Airway 8.3 Pressure Peak Inspiratory Airway 7 Pressure Peak Inspiratory Airway 6 Pressure Peak Inspiratory Airway 8.1 Pressure Peak Inspiratory Airway 6 Pressure Peak Inspiratory Airway 7 Pressure Peak Inspiratory Airway 17 Pressure Results - Laboratory Findings CBC and BMP: 07/31/18 03:32 07/31/18 03:32 ABG ABG pH 7.24 pH Units (7.32-7.45) L 07/31/18 06:17 ABG pCO2 57 mmHg (35-45) H 07/31/18 06:17 ABG pO2 85 mmHg (85-104) 07/31/18 06:17 ABG O2 Saturation 94 % (95-98) L 07/31/18 06:17 PT/INR, D-dimer PT 10.0 Seconds (9.4-12.1) 07/30/18 21:02 Abnormal lab findings: Abnormal lab results WBC 22.4 K/mcL (4.3-11.1) H D 07/31/18 03:32 RBC 3.62 M/mcL (3.82-4.97) L 07/31/18 03:32 Neutrophils # 21.7 K/mcL (1.6-8.9) H 07/31/18 03:32 Lymphocytes # 0.1 K/mcL (0.6-4.6) L 07/31/18 03:32 ABG pH 7.24 pH Units (7.32-7.45) L 07/31/18 06:17 ABG pCO2 57 mmHg (35-45) H 07/31/18 06:17 ABG O2 Saturation 94 % (95-98) L 07/31/18 06:17 ABG Base Excess -4 mEq/L (-2 to 3) L 07/31/18 06:17 Potassium 5.6 mEq/L (3.5-5.1) H 07/31/18 03:32 Carbon Dioxide 22 mEq/L (23-29) L 07/31/18 03:32 BUN 67 mg/dL (8-23) H 07/31/18 03:32 Creatinine 7.82 mg/dL (0.60-1.20) H 07/31/18 03:32 Est GFR ( Amer) 6 (> 60) L 07/31/18 03:32 Est GFR (Non-Af Amer) 5 (> 60) L 07/31/18 03:32 Glucose 131 mg/dL (70-105) H 07/31/18 03:32 POC Glucose 104 mg/dL (70-99) H 07/30/18 23:00 Calculated Osmolality 303 (280-300) H 07/31/18 03:32 Phosphorus 6.7 mg/dL (2.7-4.5) H 07/31/18 03:32 Troponin I 0.22 ng/mL (< 0.04) H* 07/31/18 03:32 Serum Total Protein 5.9 g/dL (6.4-8.9) L 07/31/18 03:32 Globulin 2.3 g/dL (2.4-3.5) L 07/31/18 03:32 - Microbiology Findings Microbiology Findings: Microbiology, Last 48 Hours 07/30/18 21:02 Blood Culture - Preliminary Peripheral Venipuncture Culture is incubating and being continuously monitored for growth. Final report to follow. 07/30/18 21:02 Blood Culture - Preliminary Peripheral Venipuncture Culture is incubating and being continuously monitored for growth. Final report to follow. - Diagnostic Findings Chest x-ray: report reviewed - Clinical Findings Intake & Output: Intake & Output 07/30/18 07/30/18 07/31/18 15:59 23:59 07:59 Intake Total 1120 / 1120 227 / 227 Output Total 2875 / 2875 0 / 0 Balance -1755 / -1755 227 / 227 Weight 67.767 kg 63.3 kg 63.3 kg Consult Discharge Plan - Plan Referrals: Vladimir Chaidez MD [Primary Care Provider] -
--- NOTE | 2018-07-31 07:57 | Pulmonology Consult Note ---
<Jarod Quintana S - Last Filed: 07/31/18 09:50> Date of Encounter: 07/31/18 Medications and Allergies Aspirin 81 mg PO DAILY 10/12/16 [History] Atorvastatin [Lipitor] 40 mg PO HS 10/12/16 [History] Budesonide/Formoterol 160/4.5 [Symbicort 160/4.5] 2 puff IH BIDR 10/12/16 [History] Furosemide [Lasix] 20 mg PO QPM 10/12/16 [History] Furosemide [Lasix] 40 mg PO QAM 10/12/16 [History] Metoprolol XL (24 HR) Succ [Toprol Xl] 50 mg PO DAILY 01/14/17 [History] Loratadine [Claritin] 10 mg PO DAILY 03/11/17 [History] Sevelamer [Renvela] 4,000 mg PO TIDWM 03/11/17 [History] Pregabalin [Lyrica] 50 mg PO BID 11/22/17 [History] B Complex W-C No.20/Folic Acid [Virt-Caps Softgel] 1 mg PO DAILY 01/01/18 [History] Hydralazine HCl 50 mg PO TID 03/17/18 [History] Levothyroxine Sodium [Levoxyl] 50 mcg PO DAILY 03/17/18 [History] amLODIPine [Norvasc] 5 mg PO BID 03/17/18 [History] Acetylcysteine [A-Fbifkc-o-Cysteine] 600 mg PO BID 04/17/18 [History] Losartan [Cozaar] 50 mg PO DAILY #60 tablet 05/07/18 [Rx] HYDROcodone BIT/Homatropine LQ [Hycodan Syrup] 5 ml PO Q6H PRN 05/19/18 [History] predniSONE [PredniSONE] 10 mg PO DAILY 05/19/18 [History] 3% Sodium Chloride Inhalation 4 ml IH Q12HR #60 vial.neb 05/23/18 [Rx] Acetylcysteine 10% 2 ml IH [id number] #60 inhsol 05/23/18 [Rx] Albuterol Neb [Proventil Neb] 2.5 mg IH TIDR #120 inhsol 05/23/18 [Rx] Azithromycin [Zithromax] 500 mg PO Q48H #30 tablet 05/23/18 [Rx] Allopurinol [Zyloprim 100 MG] 100 mg PO DAILY 07/30/18 [History] Ipratropium/Albuterol Neb [Duoneb] 3 ml IH Q6HR 07/30/18 [History] Sulfamethoxazole/Trimeth DS [Bactrim DS] 1 tab PO DAILY 07/30/18 [History] Tiotropium [place] [Spiriva Respimat] 2 puff IH DAILY 07/30/18 [History] Allergy/AdvReac Type Severity Reaction Status Date / Time codeine Allergy Rash Verified 07/30/18 14:27 gabapentin Allergy Itching Verified 07/30/18 14:27 All Systems: The remainder of the systems were reviewed and are negative Physical Examination Vital Signs: Vital Signs, Last 4 Hours Temp Pulse Resp BP Pulse Ox 07/31/18 09:00 98.2 F 107 15 116/50 92 07/31/18 08:00 98.2 F 89 18 111/52 100 07/31/18 07:30 12 109/53 100 07/31/18 07:00 98 14 109/53 100 07/31/18 06:00 96 17 90/63 97 Ventilator Settings Ventilator Settings: Ventilator Settings, Last 8 Hours Ventilator Tidal Volume 350 Setting Ventilator Tidal Volume 400 Setting Ventilator Tidal Volume 350 Setting Ventilator Tidal Volume 400 Setting Ventilator Tidal Volume 350 Setting Ventilator Tidal Volume 350 Setting Ventilator Tidal Volume 350 Setting Ventilator Tidal Volume 350 Setting Ventilator Tidal Volume 350 Setting Ventilator Tidal Volume 350 Setting Ventilator Tidal Volume 350 Setting Ventilator Tidal Volume 350 Setting Ventilator Respiratory Rate 12 Setting Ventilator Respiratory Rate 12 Setting Ventilator Respiratory Rate 12 Setting Ventilator Respiratory Rate 12 Setting Ventilator Respiratory Rate 12 Setting Ventilator Respiratory Rate 12 Setting Ventilator Respiratory Rate 12 Setting Ventilator Respiratory Rate 12 Setting Ventilator Respiratory Rate 12 Setting Ventilator Respiratory Rate 12 Setting Ventilator Respiratory Rate 12 Setting Ventilator Respiratory Rate 12 Setting Actual Respiratory Rate 15 Actual Respiratory Rate 13 Actual Respiratory Rate 14 Actual Respiratory Rate 15 Actual Respiratory Rate 17 Actual Respiratory Rate 15 Actual Respiratory Rate 17 Actual Respiratory Rate 18 Actual Respiratory Rate 18 Actual Respiratory Rate 18 Actual Respiratory Rate 18 Positive End Expiratory 5 Pressure Positive End Expiratory 5 Pressure Positive End Expiratory 5 Pressure Positive End Expiratory 5 Pressure Positive End Expiratory 5 Pressure Positive End Expiratory 5 Pressure Positive End Expiratory 5 Pressure Positive End Expiratory 5 Pressure Positive End Expiratory 5 Pressure Positive End Expiratory 5 Pressure Positive End Expiratory 5 Pressure Positive End Expiratory 5 Pressure Peak Inspiratory Airway 6 Pressure Peak Inspiratory Airway 8 Pressure Peak Inspiratory Airway 7 Pressure Peak Inspiratory Airway 6 Pressure Peak Inspiratory Airway 8.3 Pressure Peak Inspiratory Airway 12 Pressure Peak Inspiratory Airway 6.4 Pressure Peak Inspiratory Airway 6.4 Pressure Peak Inspiratory Airway 8.3 Pressure Peak Inspiratory Airway 7 Pressure Peak Inspiratory Airway 6 Pressure Results - Laboratory Findings CBC and BMP: 07/31/18 03:32 07/31/18 03:32 ABG ABG pH 7.24 pH Units (7.32-7.45) L 07/31/18 06:17 ABG pCO2 57 mmHg (35-45) H 07/31/18 06:17 ABG pO2 85 mmHg (85-104) 07/31/18 06:17 ABG O2 Saturation 94 % (95-98) L 07/31/18 06:17 PT/INR, D-dimer PT 10.0 Seconds (9.4-12.1) 07/30/18 21:02 Abnormal lab findings: Abnormal lab results WBC 22.4 K/mcL (4.3-11.1) H D 07/31/18 03:32 RBC 3.62 M/mcL (3.82-4.97) L 07/31/18 03:32 Neutrophils # 21.7 K/mcL (1.6-8.9) H 07/31/18 03:32 Lymphocytes # 0.1 K/mcL (0.6-4.6) L 07/31/18 03:32 ABG pH 7.24 pH Units (7.32-7.45) L 07/31/18 06:17 ABG pCO2 57 mmHg (35-45) H 07/31/18 06:17 ABG O2 Saturation 94 % (95-98) L 07/31/18 06:17 ABG Base Excess -4 mEq/L (-2 to 3) L 07/31/18 06:17 Potassium 5.6 mEq/L (3.5-5.1) H 07/31/18 03:32 Carbon Dioxide 22 mEq/L (23-29) L 07/31/18 03:32 BUN 67 mg/dL (8-23) H 07/31/18 03:32 Creatinine 7.82 mg/dL (0.60-1.20) H 07/31/18 03:32 Est GFR ( Amer) 6 (> 60) L 07/31/18 03:32 Est GFR (Non-Af Amer) 5 (> 60) L 07/31/18 03:32 Glucose 131 mg/dL (70-105) H 07/31/18 03:32 POC Glucose 104 mg/dL (70-99) H 07/30/18 23:00 Calculated Osmolality 303 (280-300) H 07/31/18 03:32 Phosphorus 6.7 mg/dL (2.7-4.5) H 07/31/18 03:32 Troponin I 0.22 ng/mL (< 0.04) H* 07/31/18 03:32 Serum Total Protein 5.9 g/dL (6.4-8.9) L 07/31/18 03:32 Globulin 2.3 g/dL (2.4-3.5) L 07/31/18 03:32 - Microbiology Findings Microbiology Findings: Microbiology, Last 48 Hours 07/31/18 05:30 Sputum Culture - Preliminary Sputum 07/30/18 21:02 Blood Culture - Preliminary Peripheral Venipuncture Culture is incubating and being continuously monitored for growth. Final report to follow. 07/30/18 21:02 Blood Culture - Preliminary Peripheral Venipuncture Culture is incubating and being continuously monitored for growth. Final report to follow. - Clinical Findings Intake & Output: Intake & Output 07/30/18 07/31/18 07/31/18 23:59 07:59 15:59 Intake Total 1120 / 1120 227 / 227 Output Total 2875 / 2875 0 / 0 Balance -1755 / -1755 227 / 227 Weight 63.3 kg 63.3 kg Consult Discharge Plan - Plan Referrals: Vladimir Chaidez MD [Primary Care Provider] - - Attending Attestation I saw and evaluated this patient and my medical decision-making was reviewed with the Resident Physician. I agree with the documented findings, disposition and treatment plan as described except to the extent set forth below. We independently had [id number] contact with the patient I spent 40 minutes of Critical Care time with this patient. It involved decision making of high complexity to assess, manipulate, and support vital organ system failure and/or to prevent further life threatening deterioration of the patient's condition. The time involved in the performance of separately reportable procedures was not counted toward critical care time. Patient seen and examined at bedside Labs, radiology, chart personally reviewed. Management was reviewed during multidisciplinary critical care rounds. MATERIALS HANDLER: Patient is awake following commands She is sedated expected to wake up appropriately no acute MATERIALS HANDLER issues. 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 We will do bronchoscopy and after that she is stable oxygenation and ventilation will try to extubate her. Cards: Congestive heart failure patient has end-stage renal disease gets dialys is as part of her fluid management. FEN-GI: Nutrition per dietary. Renal: Labs and output reviewed ID: Patient has stenotrophomonas in the past to give broad-spectrum antibiotics. will stop Itraconazole. Heme/Onc:Thromboprophylaxis Endo: Glucose Monitored Integ/MSK: Skin Care per routine ICU Nursing Protocol to prevent ulcers. Lines: All lines examined without evidence of infection : Dispo: Critically ill CODE:Full Code <Denice Strauss R - Last Filed: 07/31/18 16:55> Time of Encounter: 07:55 Assessment and Plan (1) Acute and chronic respiratory failure with hypoxia Current Visit: Yes Status: Acute Pt was admitted for increasing shortness of breath due to a volume overloaded state. As she was undergoing dialysis she became hypoxic and was subsequently intubated. CXR showed LAST atelectasis vs pneumonia. Cardiomegaly with B/L pleural effusions suggestive of CHF - echo pending. Bronchoscopy 07/31/2018 Extubation at 1700 on 07/31 Abx: Vancomycin, zosyn, levaquin day 2 - itraconazole D/C'd Methylprednisolone 40mg Q8H Respiratory infectious panel and Mycoplasma antigen screen negative MRSA nasal swab positive Blood culture positive for MRSA Legionella and Strep pneumo were considered but pt is anuric so these labs are unable to be done (2) ESRD on dialysis Current Visit: Yes Status: Chronic Nephrology consulted Dialysis MWF PUF yesterday with 2875 mL dialyzed Dialysis this afternoon (3) Acute exacerbation of chronic obstructive pulmonary disease (COPD) Current Visit: Yes Status: Acute Mucus plugging vs pneumonia Same plan as for #1 (4) Collapse of left lung Current Visit: Yes Status: Acute Same as plan for #1 (5) Elevated troponin Current Visit: Yes Status: Acute 0.09 --> 0.22 this am Likely secondary to demand ischemia Repeat EKG showed afib w/ RVR at 109bpm and ST segment depression in leads V5 and V6. - 5mg lopressor ordered for rate control of afib Echo pending (6) Hyperkalemia Current Visit: Yes Status: Acute 6.5 --> 5.6 this am ESRD on dialysis Dialysis MWF - will dialyze this afternoon PUF yesterday with 2875 mL dialyzed Continue to trend - if increases then consider emergent dialysis 45g Kayexalate, insulin with dextrose, calcium gluconate given 07/30/2018 (7) DVT prophylaxis Current Visit: Yes Status: Acute Hx of DVT, ESRD Heparin 5,000U SQ BIQ (8) Positive blood culture Current Visit: Yes Status: Acute Gm+ cocci detected in BC obtained at 2100 on 07/30/2018 - MRSA positive Bronchoscopy and sputum cultures pending Pt on Vanc, zosyn and levaquin CXR in the am to follow possible developing pneumonia History of Present Illness Consult date: 07/30/18 Requesting physician: Curtis Castañeda Reason for consult: dyspnea, hypoxemia Chief complaint: Shortness of breath History of present illness: Pt is a 77 yo female with PMHx of COPD, afib and ESRD on dialysis MWF who presented to the ED on 07/30/2018 due to increasing shortness of breath. Her last dialysis was on Tuesday RADIOLOGIST. Her family stated she has been more short of breath and coughing at home, bt they brought her in because she was unable to sleep due to her shortness of breath. She uses oxygen all the time at home. Since admission, she has undergone emergent dialysis and had 2875 mL fluid dialyzed but this was stopped early due to hemodynamic instability. She was transferred to the ICU and intubated due to respiratory failure at 2230 last night and an OG tube was also placed at this time. She had no other events overnight. Past Med Surg Social Fam HX - Past Medical History Medical history: atrial fibrillation, COPD, DVT, dialysis, hyperlipidemia, hypertension, osteoporosis, renal disease, other Additional medical history: broken right foot (2001), left arm fistula Psychiatric history: no psych history - Past Surgical History Surgical History: other Additional surgical history: back surgery L4-L5, , left nephrectomy for donation, cataract removal, CTR-left, A-V fistula placed in left arm. - Social History Smoking Status: Never smoker Smokeless Tobacco Status: No Alcohol use: none Drug use: none - Family History Mother Adopted: No Family Member Ethnicity: Non- Living Status: Hx Family Cardiac Disorders: No Hx Family Respiratory Disorders: No Hx Family Cancer: Yes Hx Family GI Disorders: No Hx Family Endocrine Disorder: No Hx Family Neuromuscular Disorders: No Hx Family Neurologic Disorders: No Hx Family HEENT Disorders: No Hx Family Autoimmune Disorders: No ROS unobtainable: due to endotracheal tube All Systems: The remainder of the systems were reviewed and are negative - Constitutional Constitutional: as per HPI - Cardiovascular Cardiovascular: as per HPI, dyspnea - Respiratory Respiratory: as per HPI, cough, dyspnea Physical Examination Vital Signs: Vital Signs, Last 4 Hours Pulse Resp BP Pulse Ox 07/31/18 07:30 12 109/53 100 07/31/18 07:00 98 14 109/53 100 07/31/18 06:00 96 17 90/63 97 07/31/18 05:28 15 111/50 97 07/31/18 05:00 86 16 111/50 96 07/31/18 04:00 91 18 119/49 97 General appearance: no acute distress, asleep Eyes: nonicteric Neck: supple, no lymphadenopathy Effort: other (intubated) Inspection: hyperextended Auscultation: right: diminished breath sounds, bilateral: rhonchi Cardiovascular: irregular rhythm Gastrointestinal: normoactive bowel sounds, soft, non-distended, other (large ventral hernia) Integumentary: normal Extremities: no cyanosis, pulses normal, edema (pedal) Musculoskeletal: no deformities other (sedated but arousable) other (sedated) Ventilator Settings Ventilator Settings: Ventilator Settings, Last 8 Hours Ventilator Tidal Volume 350 Setting Ventilator Tidal Volume 400 Setting Ventilator Tidal Volume 350 Setting Ventilator Tidal Volume 350 Setting Ventilator Tidal Volume 350 Setting Ventilator Tidal Volume 350 Setting Ventilator Tidal Volume 350 Setting Ventilator Tidal Volume 350 Setting Ventilator Tidal Volume 350 Setting Ventilator Tidal Volume 350 Setting Ventilator Tidal Volume 350 Setting Ventilator Tidal Volume 350 Setting Ventilator Tidal Volume 350 Setting Ventilator Tidal Volume 350 Setting Ventilator Respiratory Rate 12 Setting Ventilator Respiratory Rate 12 Setting Ventilator Respiratory Rate 12 Setting Ventilator Respiratory Rate 12 Setting Ventilator Respiratory Rate 12 Setting Ventilator Respiratory Rate 12 Setting Ventilator Respiratory Rate 12 Setting Ventilator Respiratory Rate 12 Setting Ventilator Respiratory Rate 12 Setting Ventilator Respiratory Rate 12 Setting Ventilator Respiratory Rate 12 Setting Ventilator Respiratory Rate 12 Setting Ventilator Respiratory Rate 12 Setting Ventilator Respiratory Rate 12 Setting Actual Respiratory Rate 14 Actual Respiratory Rate 15 Actual Respiratory Rate 17 Actual Respiratory Rate 15 Actual Respiratory Rate 17 Actual Respiratory Rate 18 Actual Respiratory Rate 18 Actual Respiratory Rate 18 Actual Respiratory Rate 18 Actual Respiratory Rate 18 Actual Respiratory Rate 21 Actual Respiratory Rate 21 Positive End Expiratory 5 Pressure Positive End Expiratory 5 Pressure Positive End Expiratory 5 Pressure Positive End Expiratory 5 Pressure Positive End Expiratory 5 Pressure Positive End Expiratory 5 Pressure Positive End Expiratory 5 Pressure Positive End Expiratory 5 Pressure Positive End Expiratory 5 Pressure Positive End Expiratory 5 Pressure Positive End Expiratory 5 Pressure Positive End Expiratory 5 Pressure Positive End Expiratory 5 Pressure Positive End Expiratory 5 Pressure Peak Inspiratory Airway 7 Pressure Peak Inspiratory Airway 6 Pressure Peak Inspiratory Airway 8.3 Pressure Peak Inspiratory Airway 12 Pressure Peak Inspiratory Airway 6.4 Pressure Peak Inspiratory Airway 6.4 Pressure Peak Inspiratory Airway 8.3 Pressure Peak Inspiratory Airway 7 Pressure Peak Inspiratory Airway 6 Pressure Peak Inspiratory Airway 8.1 Pressure Peak Inspiratory Airway 6 Pressure Peak Inspiratory Airway 7 Pressure Results - Laboratory Findings CBC and BMP: 07/31/18 03:32 07/31/18 03:32 ABG ABG pH 7.24 pH Units (7.32-7.45) L 07/31/18 06:17 ABG pCO2 57 mmHg (35-45) H 07/31/18 06:17 ABG pO2 85 mmHg (85-104) 07/31/18 06:17 ABG O2 Saturation 94 % (95-98) L 07/31/18 06:17 PT/INR, D-dimer PT 10.0 Seconds (9.4-12.1) 07/30/18 21:02 Abnormal lab findings: Abnormal lab results WBC 22.4 K/mcL (4.3-11.1) H D 07/31/18 03:32 RBC 3.62 M/mcL (3.82-4.97) L 07/31/18 03:32 Neutrophils # 21.7 K/mcL (1.6-8.9) H 07/31/18 03:32 Lymphocytes # 0.1 K/mcL (0.6-4.6) L 07/31/18 03:32 ABG pH 7.24 pH Units (7.32-7.45) L 07/31/18 06:17 ABG pCO2 57 mmHg (35-45) H 07/31/18 06:17 ABG O2 Saturation 94 % (95-98) L 07/31/18 06:17 ABG Base Excess -4 mEq/L (-2 to 3) L 07/31/18 06:17 Potassium 5.6 mEq/L (3.5-5.1) H 07/31/18 03:32 Carbon Dioxide 22 mEq/L (23-29) L 07/31/18 03:32 BUN 67 mg/dL (8-23) H 07/31/18 03:32 Creatinine 7.82 mg/dL (0.60-1.20) H 07/31/18 03:32 Est GFR ( Amer) 6 (> 60) L 07/31/18 03:32 Est GFR (Non-Af Amer) 5 (> 60) L 07/31/18 03:32 Glucose 131 mg/dL (70-105) H 07/31/18 03:32 POC Glucose 104 mg/dL (70-99) H 07/30/18 23:00 Calculated Osmolality 303 (280-300) H 07/31/18 03:32 Phosphorus 6.7 mg/dL (2.7-4.5) H 07/31/18 03:32 Troponin I 0.22 ng/mL (< 0.04) H* 07/31/18 03:32 Serum Total Protein 5.9 g/dL (6.4-8.9) L 07/31/18 03:32 Globulin 2.3 g/dL (2.4-3.5) L 07/31/18 03:32 - Microbiology Findings Microbiology Findings: Microbiology, Last 48 Hours 07/30/18 21:02 Blood Culture - Preliminary Peripheral Venipuncture Culture is incubating and being continuously monitored for growth. Final report to follow. 07/30/18 21:02 Blood Culture - Preliminary Peripheral Venipuncture Culture is incubating and being continuously monitored for growth. Final report to follow. - Diagnostic Findings Chest x-ray: report reviewed - Clinical Findings Intake & Output: Intake & Output 07/30/18 07/30/18 07/31/18 15:59 23:59 07:59 Intake Total 1120 / 1120 227 / 227 Output Total 2875 / 2875 0 / 0 Balance -1755 / -1755 227 / 227 Weight 67.767 kg 63.3 kg 63.3 kg
[2018-07-31] MEDS ORDERED: 0.9 % Sodium Chloride 2,000 ML ONE (08:17)
[2018-07-31] MEDS: Pantoprazole 40 MG VIAL IVP SCH (09:25)
[2018-07-31] MEDS: Chlorhexidine Rinse 15 ML MOUTHWASH MM SCH ×2 (09:25→20:31)
[2018-07-31] MEDS: Piperacillin/Tazobactam 3.375 GM in 0.9 % Sodium Chloride Mini Bag 100 ML IVPB SCH ×2 (09:25→20:27)
[2018-07-31] MEDS ORDERED: 0.9 % Sodium Chloride 250 ML IVC PRN (10:45)
[2018-07-31] MEDS ORDERED: Lidocaine 2% Syringe 100 MG/5 ML ONE (10:55)
--- NOTE | 2018-07-31 10:56 | Nephrology Progress Note ---
Date of Encounter: 07/31/18 Time of Encounter: 09:30 - Assessment and Plan (1) ESRD on dialysis Current Visit: Yes Status: Chronic HD today for clearance. S/p UF yesterday (Tuesday when ordered by Dr. Goodman) to challenge her volume status. Hx of mucus plugging and recurrent acute on chronic respiratory failure. Her volume status is excellent today, so HD is mostly for clearance. Addendum: during her HD this afternoon, she developed intradialytic hypotension, and I ordered Albumin 25gm, which did help improve her intravascular BPs, thus allowing HD to safely continue and be completed. (2) Hyperkalemia Current Visit: Yes Status: Acute See above (3) Anemia in chronic kidney disease (CKD) Current Visit: No Status: Chronic Goal Hgb is 10-11 Qualifiers: Chronic kidney disease stage: on chronic dialysis Qualified Code(s): N18.6 - End stage renal disease; D63.1 - Anemia in chronic kidney disease; D63.1 - Anemia in chronic kidney disease; Z99.2 - Dependence on renal dialysis; Z99.2 - Dependence on renal dialysis; Z99.2 - Dependence on renal dialysis; Z99.2 - Dependence on renal dialysis (4) HTN (hypertension) Current Visit: No Status: Chronic Will monitor, but she was hypotensive with HD today. Qualifiers: Hypertension type: essential hypertension Qualified Code(s): I10 - Essential (primary) hypertension (5) Acute and chronic respiratory failure Current Visit: No Status: Acute As per primary; s/p bronch with mucous plugging. Qualifiers: Respiratory failure complication: hypoxia Qualified Code(s): J96.21 - Acute and chronic respiratory failure with hypoxia Subjective Principal diagnosis: ESRD Interval history: Pt was s/e in the ICU, she was intubated after dialysis that my colleague Dr. Goodman had arranged (I presume he consulted on her already) yesterday (Tuesday). She was not able to provide further subjective history d/t her intubation. The chain builder loom control reported intradialytic hypotension during dialysis today. Objective - Vital Signs Vital signs: Vital Signs Temp Pulse Resp BP Pulse Ox 07/31/18 09:55 17 88/41 97 07/31/18 09:00 98.2 F 107 15 116/50 92 07/31/18 08:00 98.2 F 89 18 111/52 100 07/31/18 07:30 12 109/53 100 07/31/18 07:00 98 14 109/53 100 07/31/18 06:00 96 17 90/63 97 07/31/18 05:28 15 111/50 97 07/31/18 05:00 86 16 111/50 96 07/31/18 04:00 91 18 119/49 97 07/31/18 03:54 100.3 F H 07/31/18 03:30 18 96/42 98 07/31/18 03:22 96 07/31/18 03:00 98 18 99/39 98 07/31/18 02:00 90 18 101/42 90 07/31/18 01:22 18 105/45 89 07/31/18 01:00 93 21 106/46 91 07/31/18 00:04 103.0 F H 07/31/18 00:00 98.9 F 94 21 106/47 90 07/30/18 23:40 106 07/30/18 23:21 23 173/75 95 07/30/18 23:00 103 F H 112 30 120/62 95 07/30/18 22:35 33 173/75 95 07/30/18 22:13 37 184/78 91 07/30/18 22:00 82 34 184/78 92 07/30/18 21:00 98.8 F 79 30 180/95 93 07/30/18 20:20 98.1 F 17 161/69 07/30/18 19:50 129/65 07/30/18 19:35 130/67 07/30/18 19:20 135/74 07/30/18 19:05 162/84 07/30/18 18:50 161/80 07/30/18 18:35 153/64 07/30/18 18:20 98.6 F 24 170/79 07/30/18 16:20 33 169/80 93 07/30/18 16:10 80 18 169/80 93 07/30/18 13:27 25 88 07/30/18 11:29 87 180/77 95 07/30/18 11:15 86 182/97 96 07/30/18 11:00 84 179/73 95 Intake and Output 07/30/18 07/31/18 07/31/18 23:59 07:59 15:59 Intake Total 1120 / 1120 227 / 227 Output Total 2875 / 2875 0 / 0 Balance -1755 / -1755 227 / 227 Intake: IV Fluids 520 / 520 227 / 227 FentaNYL (PF) 1,000 MCG In 0.9 27 / 27 % Sodium Chloride 80 ML @ 50 MCG/HR 5 mls/hr IVC CONT HUSSEIN Rx #:[id number] Diprivan 1,000 mg In 100 ml @ 5 0 / 0 100 / 100 MCG/KG/MIN 1.899 mls/hr IVC . Q24H [facility] Rx#:[id number] Calcium Gluconate 2,000 MG In 0 120 / 120 .9 % Sodium Chloride 100 ML @ 220 mls/hr IVPB ONCE ONE Rx#: [id number] Levaquin Premix 750mg/150 mL 150 / 150 750 mg In 150 ml @ 100 mls/hr IVPB Q48H [facility] Rx#:[id number] Zosyn 3.375 GM In 0.9 % Sodium 100 / 100 Chloride (Mini-Bag +) 100 ML @ 25 mls/hr IVPB Q12H [facility] Rx#: [id number] Vancocin 1,000 MG In 0.9 % 250 / 250 Sodium Chloride 250 ML @ 167 mls/hr IVPB ONCE ONE Rx#: [id number] Oral 0 / 0 Intake, Rinseback and Flushes 600 / 600 Output: Urine 0 / 0 0 / 0 Total Dialysis (HD) Output 2875 / 2875 Other: Stool Size Moderate Stool Consistency soft formed Stool Color Brown Weight 63.3 kg 63.3 kg Blood Glucose* 93 117 Hemodialysis Net Fluid Removed 2275 (mL) Patient Weight 07/31/18 23:59 Weight 63.3 kg - General Appearance General appearance: Present: chronically ill, sedated on ventilator, intubated, fatigue, frail EENT: Present: ATNC, PERRL, mucous membranes moist Neck: Present: supple Respiratory: Present: course breath sounds Cardiology: Present: no edema, irregular rhythm, normal S1, normal S2 Dialysis Vascular Access: Arteriovenous Fistula (LUE AVF) thrill: Yes bruit: Yes Gastrointestinal: Present: normoactive bowel sounds, no tenderness, no guarding Integumentary: Present: warm and dry Neurologic: Present: no focal deficit, no asterixis Musculoskeletal: Present: no erythema, no cyanosis Psychiatric: Present: cooperative (she followed verbal commands) - Lab 07/31/18 03:32 07/31/18 03:32 Most recent lab results ABG pH 7.24 pH Units (7.32-7.45) L 07/31/18 06:17 ABG pCO2 57 mmHg (35-45) H 07/31/18 06:17 ABG pO2 85 mmHg (85-104) 07/31/18 06:17 ABG HCO3 24 mEq/L (21-27) 07/31/18 06:17 ABG O2 Saturation 94 % (95-98) L 07/31/18 06:17 Calcium 9.9 mg/dL (8.6-10.3) 07/31/18 03:32 Phosphorus 6.7 mg/dL (2.7-4.5) H 07/31/18 03:32 Magnesium 2.2 mg/dL (1.6-2.6) 07/31/18 03:32 Consult Discharge Plan - Plan Referrals: Vladimir Chaidez MD [Primary Care Provider] -
[2018-07-31] MEDS ORDERED: *HR* Metoprolol 5 MG/5 ML VIAL IVP ONE (11:48)
[2018-07-31 13:21] LABS: Adenovirus Not Detected (Not Detect); Bordetella Pertussis Not Detected (Not Detect); Chlamydophila pneumoniae Not Detected (Not Detect); Coronavirus 229E Not Detected (Not Detect); Coronavirus HKU1 Not Detected (Not Detect); Coronavirus NL63 Not Detected (Not Detect); Coronavirus OC43 Not Detected (Not Detect); Human Metapneumovirus Not Detected (Not Detect); Human Rhinovirus/Enterovirus Not Detected (Not Detect); Influenza A Subtype 2009 H1 Not Detected (Not Detect); Influenza A Untypeable Not Detected (Not Detect); Influenza B Not Detected (Not Detect); Mycoplasma pneumoniae Not Detected (Not Detect); Parainfluenza Virus 1 Not Detected (Not Detect); Parainfluenza Virus 2 Not Detected (Not Detect); Parainfluenza Virus 3 Not Detected (Not Detect); Parainfluenza Virus 4 Not Detected (Not Detect); Respiratory Syncytial Virus Not Detected (Not Detect)
[2018-07-31] MEDS ORDERED: Albumin 25% 25gram/100mL 25 GM/100 ML IV.SOLN IVPB ONE (13:49)
[2018-07-31 14:23] LABS: Acinetobacter baumannii by PCR Not Detected (Not Detect); Candida albicans by PCR Not Detected (Not Detect); Candida glabrata by PCR Not Detected (Not Detect); Candida krusei by PCR Not Detected (Not Detect); Candida parapsilosis by PCR Not Detected (Not Detect); Candida tropicalis by PCR Not Detected (Not Detect); Enterobacter cloacae Cmplx PCR Not Detected (Not Detect); Enterobacteriaceae by PCR Not Detected (Not Detect); Enterococcus by PCR Not Detected (Not Detect); Escherichia coli by PCR Not Detected (Not Detect); Klebsiella oxytoca by PCR Not Detected (Not Detect); Klebsiella pneumoniae by PCR Not Detected (Not Detect); Proteus by PCR Not Detected (Not Detect); Pseudomonas aeruginosa by PCR Not Detected (Not Detect); Serratia marcescens by PCR Not Detected (Not Detect); Staphylococcus aureus by PCR DETECTED (Not Detect); Staphylococcus by PCR DETECTED (Not Detect); Streptococcus agalactiae(B)PCR Not Detected (Not Detect); Streptococcus by PCR Not Detected (Not Detect); Streptococcus pneumoniae PCR Not Detected (Not Detect); Streptococcus pyogenes (A) PCR Not Detected (Not Detect); blaKPC Carbapenem-Resist Gene Not Detected (Not Detect); mecA Methicillin-Resist Gene DETECTED (Not Detect); vanA/B Vancomycin-Resist Genes Not Detected (Not Detect)
[2018-07-31] MEDS ORDERED: Vancomycin 500 MG in 0.9 % Sodium Chloride Mini Bag 100 ML IVPB ONE (17:00)
[2018-08-01] MEDS: MethylPREDNISolone 40 MG/ML VIAL IVP SCH ×3 (03:06→17:17)
[2018-08-01] MEDS ORDERED: *HR* Metoprolol 5 MG/5 ML VIAL IVP ONE ×2 (03:49→14:02)
[2018-08-01] MEDS: Ipratropium/Albuterol Neb 3 ML IH SCH ×4 (04:02→23:27)
[2018-08-01 04:15] LABS: VBG Ionized Calcium 1.15 mmol/L (1.15-1.35)
[2018-08-01 04:15] LABS: Basophils % 0.1 %; Hematocrit 35.8 % (35.3-44.9); Hemoglobin 11.3 g/dL (11.5-15.4); Immature Granulocytes % 0.6 % (0-4); Lymphocytes # 0.3 K/mcL (0.6-4.6); Lymphocytes % 1.8 %; Mean Corpuscular HGB Conc 31.6 g/dL (31.6-35.5); Mean Corpuscular Hemoglobin 31.2 pg (28.0-33.3); Mean Corpuscular Volume 98.9 fL (83.0-100.0); Mean Platelet Volume 10.4 fL (9.4-12.4); Monocytes # 0.5 K/mcL (0.0-1.3); Monocytes % 3.5 %; Neutrophils # 14.2 K/mcL (1.6-8.9); Platelet Count 171 K/mcL (140-400); Red Blood Count 3.62 M/mcL (3.82-4.97); Red Cell Distribution Width 14.4 % (11.5-14.5)
[2018-08-01] MEDS: Artificial Tears SOLN 15 ML BOTTLE BOTH EYES SCH ×3 (04:17→07:50)
[2018-08-01 04:34] LABS: Albumin 3.4 g/dL (3.5-5.7); Albumin/Globulin Ratio 1.5 (1.1-2.2); Bilirubin,Total 0.7 mg/dL (0.3-1.0); Calcium 9.7 mg/dL (8.6-10.3); Globulin 2.2 g/dL (2.4-3.5); Phosphorous 6.7 mg/dL (2.7-4.5); Potassium 4.3 mEq/L (3.5-5.1); Total Protein 5.6 g/dL (6.4-8.9)
[2018-08-01] MEDS: *HR* Heparin 5,000 UNIT/ML VIAL SQ SCH ×2 (06:24→17:17)
--- NOTE | 2018-08-01 06:45 | Pulmonology Progress Note ---
<Jarod Quintana S - Last Filed: 08/01/18 12:17> Objective PUL Vital signs: Last Vital Signs Temp 97.7 F 08/01/18 11:00 Pulse 124 08/01/18 12:00 Resp 20 08/01/18 12:00 BP 137/65 08/01/18 12:00 Pulse Ox 95 08/01/18 12:00 Results - Laboratory Findings CBC and BMP: 08/01/18 03:57 08/01/18 03:57 ABG ABG pH 7.24 pH Units (7.32-7.45) L 07/31/18 06:17 ABG pCO2 57 mmHg (35-45) H 07/31/18 06:17 ABG pO2 85 mmHg (85-104) 07/31/18 06:17 ABG O2 Saturation 94 % (95-98) L 07/31/18 06:17 PT/INR, D-dimer PT 10.0 Seconds (9.4-12.1) 07/30/18 21:02 Abnormal lab findings: Abnormal lab results WBC 15.1 K/mcL (4.3-11.1) H 08/01/18 03:57 RBC 3.62 M/mcL (3.82-4.97) L 08/01/18 03:57 Hgb 11.3 g/dL (11.5-15.4) L 08/01/18 03:57 Neutrophils # 14.2 K/mcL (1.6-8.9) H 08/01/18 03:57 Lymphocytes # 0.3 K/mcL (0.6-4.6) L 08/01/18 03:57 ABG pH 7.24 pH Units (7.32-7.45) L 07/31/18 06:17 ABG pCO2 57 mmHg (35-45) H 07/31/18 06:17 ABG O2 Saturation 94 % (95-98) L 07/31/18 06:17 ABG Base Excess -4 mEq/L (-2 to 3) L 07/31/18 06:17 Chloride 97 mEq/L (98-107) L 08/01/18 03:57 BUN 34 mg/dL (8-23) H 08/01/18 03:57 Creatinine 4.14 mg/dL (0.60-1.20) H 08/01/18 03:57 Est GFR ( Amer) 13 (> 60) L 08/01/18 03:57 Est GFR (Non-Af Amer) 10 (> 60) L 08/01/18 03:57 Glucose 122 mg/dL (70-105) H 08/01/18 03:57 POC Glucose 158 mg/dL (70-99) H 07/31/18 23:38 Phosphorus 6.7 mg/dL (2.7-4.5) H 08/01/18 03:57 Troponin I 0.22 ng/mL (< 0.04) H* 07/31/18 03:32 Serum Total Protein 5.6 g/dL (6.4-8.9) L 08/01/18 03:57 Albumin 3.4 g/dL (3.5-5.7) L 08/01/18 03:57 Globulin 2.2 g/dL (2.4-3.5) L 08/01/18 03:57 Fluid Appearance Cloudy (Clear) A 07/31/18 11:00 Nasal Screen MRSA (PCR) Positive (Negative) A 07/31/18 12:10 Staphylococcus sp PCR DETECTED (Not Detect) A 07/30/18 21:02 Staph aureus (PCR) DETECTED (Not Detect) A 07/30/18 21:02 mecA-Methicil Res Gene DETECTED (Not Detect) A 07/30/18 21:02 - Microbiology Findings Microbiology Findings: Microbiology, Last 48 Hours 08/01/18 11:45 Blood Culture - Preliminary Peripheral Venipuncture Culture is incubating and being continuously monitored for growth. Final report to follow. 08/01/18 11:45 Blood Culture - Preliminary Peripheral Venipuncture Culture is incubating and being continuously monitored for growth. Final report to follow. 07/31/18 11:00 Respiratory Culture - Preliminary Right Middle Lobe Lung 07/31/18 10:57 Respiratory Culture - Preliminary Left Upper Lobe Lung 07/30/18 21:02 Blood Culture - Preliminary Peripheral Venipuncture Gram Positive Cocci 07/30/18 21:02 Blood Culture - Preliminary Peripheral Venipuncture Gram Positive Cocci 07/31/18 05:30 Sputum Culture - Preliminary Sputum - Clinical Findings Intake & Output: Intake & Output 07/31/18 08/01/18 08/01/18 23:59 07:59 15:59 Intake Total 193 / 193 100 / 100 Output Total 1950 / 1950 0 / 0 Balance -1757 / -1757 100 / 100 Weight 63.3 kg Consult Discharge Plan - Plan Referrals: Vladimir Chaidez MD [Primary Care Provider] - - Attending Attestation - Attending Attestation I saw and evaluated this patient and my medical decision-making was reviewed with the Resident Physician. I agree with the documented findings, disposition and treatment plan as described except to the extent set forth below. We independently had [id number] contact with the patient Patient seen and examined at bedside Labs, radiology, chart personally reviewed. Management was reviewed during multidisciplinary critical care rounds. 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 Patient had the bronchoscopy yesterday also had d ialysis patient V/Q mismatch was stable she was extubated to nasal cannula yesterday. Cards: Congestive heart failure patient has end-stage renal disease gets dialysis as part of her fluid management. FEN-GI: Nutrition per dietary. Renal: Labs and output reviewed ID: Patient has stenotrophomonas in the past to give broad-spectrum antibiotics. Patient has - blood for repeat blood cultures echo seems to be negative is no other focus repeat blood cultures are positive need to scan her abdomen and fistula . She is hemodynamically stable Heme/Onc:Thromboprophylaxis Endo: Glucose Monitored Integ/MSK: Skin Care per routine ICU Nursing Protocol to prevent ulcers. Lines: All lines examined without evidence of infection : Dispo: Patient can be transferred to CODE:Full Code <Nicanor Lopez - Last Filed: 08/01/18 16:12> Date of Encounter: 08/01/18 Time of Encounter: 08:16 Assessment and Plan (1) Acute and chronic respiratory failure with hypoxia Current Visit: Yes Status: Acute Admitted for increasing SOB due to volume overload. As she was undergoing dialysis she became hypoxic and was subsequently intubated. CXR showed LAST atelectasis vs pneumonia. Cardiomegaly with B/L pleural effusions suggestive of CHF - echo pending. Bronchoscopy 07/31/2018 - awaiting BAL cultures Extubated successfully yesterday Vancomycin, zosyn, and levaquin day 2 Respiratory infectious panel and Mycoplasma antigen screen negative MRSA nasal swab positive Blood culture positive for MRSA Legionella and Strep pneumo were considered but pt is anuric so these labs are unable to be done Continue abx as above - awaiting BAL culture results De-escalate steroids to Prednisone 40mg po daily Stable to transfer to telemetry floor (2) Atrial fibrillation with RVR Current Visit: Yes Status: Chronic On 50mg Toprol XL at home Pt became persistently tachycardic overnight with HR in the 120s Started Metoprolol 25mg BID Started Cardizem drip, however HR remained unchanged Stopped Cardizem drip. Gave 5mg Lopressor IV May be rebound tachycardia since metoprolol was held with intubation Consider increasing Metoprolol (3) Acute exacerbation of chronic obstructive pulmonary disease (COPD) Current Visit: Yes Status: Acute Mucus plugging vs pneumonia Plan as above (4) ESRD on dialysis Current Visit: Yes Status: Chronic Nephrology on board Dialysis MWF PUF Tuesday with 2875 mL dialyzed Had 1950mL further removed via HD yesterday Per nephro - resume MWF dialysis schedule at this time (5) Positive blood culture Current Visit: Yes Status: Acute Gm+ cocci detected in BC obtained at 21:00 on 07/30/18 - MRSA positive Bronchoscopy and sputum cultures pending Continue Vanc, zosyn and levaquin Improving clinically after bronchoscopy yesterday. Await BAL culture for possible PNA Repeat blood cultures (6) Elevated troponin Current Visit: Yes Status: Acute 0.09 --> 0.22 yesterday Likely secondary to demand ischemia EKG showed afib w/ RVR at 109bpm and ST segment depression in leads V5 and V6 (7) Hyperkalemia Current Visit: Yes Status: Resolved Was elevated at 6.5 on admission Improved after HD Resolved today at 4.3 Continue to monitor (8) DVT prophylaxis Current Visit: Yes Status: Acute SQ Heparin Subjective Principal diagnosis: ESRD Interval history: Pt seen and examined at bedside. Pt became tachycardic in the 120s overnight, bu t remained asymptomatic. Pt resting comfortably in bed. States she is still coughing, but admits that it is significantly easier for her to breath. Denies any chest pain, abdominal pain, nausea, vomiting, headaches, numbness, or tingling. Objective PUL Vital signs: Last Vital Signs Temp 97.4 F L 08/01/18 03:59 Pulse 125 08/01/18 06:00 Resp 18 08/01/18 06:00 BP 148/92 08/01/18 06:00 Pulse Ox 100 08/01/18 06:00 General appearance: no acute distress Eyes: nonicteric ENT: oropharynx moist Neck: supple, no lymphadenopathy, no JVD Effort: normal Auscultation: bilateral: diminished breath sounds, rales Percussion: bilateral: not dull Tactile fremitus: bilateral: normal Cardiovascular: other (Tachycardic ) Gastrointestinal: normoactive bowel sounds, soft, non-tender, non-distended Integumentary: normal Extremities: no cyanosis, no clubbing, pink and warm, pulses normal Musculoskeletal: no deformities normal mental status, non-focal exam mood appropriate, affect normal Results - Laboratory Findings CBC and BMP: 08/01/18 03:57 08/01/18 03:57 ABG ABG pH 7.24 pH Units (7.32-7.45) L 07/31/18 06:17 ABG pCO2 57 mmHg (35-45) H 07/31/18 06:17 ABG pO2 85 mmHg (85-104) 07/31/18 06:17 ABG O2 Saturation 94 % (95-98) L 07/31/18 06:17 PT/INR, D-dimer PT 10.0 Seconds (9.4-12.1) 07/30/18 21:02 Abnormal lab findings: Abnormal lab results WBC 15.1 K/mcL (4.3-11.1) H 08/01/18 03:57 RBC 3.62 M/mcL (3.82-4.97) L 08/01/18 03:57 Hgb 11.3 g/dL (11.5-15.4) L 08/01/18 03:57 Neutrophils # 14.2 K/mcL (1.6-8.9) H 08/01/18 03:57 Lymphocytes # 0.3 K/mcL (0.6-4.6) L 08/01/18 03:57 ABG pH 7.24 pH Units (7.32-7.45) L 07/31/18 06:17 ABG pCO2 57 mmHg (35-45) H 07/31/18 06:17 ABG O2 Saturation 94 % (95-98) L 07/31/18 06:17 ABG Base Excess -4 mEq/L (-2 to 3) L 07/31/18 06:17 Chloride 97 mEq/L (98-107) L 08/01/18 03:57 BUN 34 mg/dL (8-23) H 08/01/18 03:57 Creatinine 4.14 mg/dL (0.60-1.20) H 08/01/18 03:57 Est GFR ( Amer) 13 (> 60) L 08/01/18 03:57 Est GFR (Non-Af Amer) 10 (> 60) L 08/01/18 03:57 Glucose 122 mg/dL (70-105) H 08/01/18 03:57 POC Glucose 158 mg/dL (70-99) H 07/31/18 23:38 Phosphorus 6.7 mg/dL (2.7-4.5) H 08/01/18 03:57 Troponin I 0.22 ng/mL (< 0.04) H* 07/31/18 03:32 Serum Total Protein 5.6 g/dL (6.4-8.9) L 08/01/18 03:57 Albumin 3.4 g/dL (3.5-5.7) L 08/01/18 03:57 Globulin 2.2 g/dL (2.4-3.5) L 08/01/18 03:57 Nasal Screen MRSA (PCR) Positive (Negative) A 07/31/18 12:10 Staphylococcus sp PCR DETECTED (Not Detect) A 07/30/18 21:02 Staph aureus (PCR) DETECTED (Not Detect) A 07/30/18 21:02 mecA-Methicil Res Gene DETECTED (Not Detect) A 07/30/18 21:02 - Microbiology Findings Microbiology Findings: Microbiology, Last 48 Hours 07/30/18 21:02 Blood Culture - Preliminary Peripheral Venipuncture Gram Positive Cocci 07/30/18 21:02 Blood Culture - Preliminary Peripheral Venipuncture Gram Positive Cocci 07/31/18 05:30 Sputum Culture - Preliminary Sputum - Clinical Findings Intake & Output: Intake & Output 07/31/18 07/31/18 08/01/18 15:59 23:59 07:59 Intake Total 700 / 700 193 / 193 100 / 100 Output Total 1950 / 1950 0 / 0 Balance 700 / 700 -1757 / -1757 100 / 100 Weight 63.3 kg
[2018-08-01] MEDS: Piperacillin/Tazobactam 3.375 GM in 0.9 % Sodium Chloride Mini Bag 100 ML IVPB SCH ×2 (07:51→20:50)
[2018-08-01] MEDS: Chlorhexidine Rinse 15 ML MOUTHWASH MM SCH (07:51)
[2018-08-01] MEDS: Pantoprazole 40 MG VIAL IVP SCH (07:51)
--- NOTE | 2018-08-01 09:35 | Nephrology Progress Note ---
Addendum entered and electronically signed by Raffaele Chan DO 08/07/18 10:14: I have personally performed a face to face evaluation on this patient. I have reviewed and agree with the care plan. History and Exam by me shows: ESRD on HD. I reviewed the labs, vitals, progress notes, med list and etc of this high risk patient. Original Note: Date of Encounter: 08/01/18 Time of Encounter: 09:33 - Assessment and Plan (1) ESRD on dialysis Current Visit: Yes Status: Chronic HD completed yesterday. Plan for HD tomorrow. Current regimen is MWF with Dr. Araujo. Avoid nephrotoxins and renal dose all medications. Strict I/O (2) HTN (hypertension) Current Visit: No Status: Chronic Stable, BP 138/88 Qualifiers: Hypertension type: essential hypertension Qualified Code(s): I10 - Essential (primary) hypertension (3) Anemia in chronic kidney disease (CKD) Current Visit: No Status: Chronic Goal Hgb is 10-11 Hgb is 11.3 today, stable. Qualifiers: Chronic kidney disease stage: on chronic dialysis Qualified Code(s): N18.6 - End stage renal disease; D63.1 - Anemia in chronic kidney disease; D63.1 - Anemia in chronic kidney disease; Z99.2 - Dependence on renal dialysis; Z99.2 - Dependence on renal dialysis; Z99.2 - Dependence on renal dialysis; Z99.2 - Dependence on renal dialysis (4) Acute and chronic respiratory failure Current Visit: No Status: Acute extubated, as per primary. Qualifiers: Respiratory failure complication: hypoxia Qualified Code(s): J96.21 - Acute and chronic respiratory failure with hypoxia (5) Hyperkalemia Current Visit: Yes Status: Acute resolved is 4.3 today. Subjective Principal diagnosis: ESRD Interval history: Pt seen and examined in ICU. Is extubated. Picc team at bedside attempting to place EPIV. Denies CP/SOB. Denies nausea/vomiting/diarrhea. Objective - Vital Signs Vital signs: Vital Signs Temp Pulse Resp BP Pulse Ox 08/01/18 08:00 98.3 F 128 16 138/88 89 08/01/18 07:00 128 18 136/78 96 08/01/18 06:00 125 18 148/92 100 08/01/18 05:00 123 18 124/96 100 08/01/18 04:02 16 151/96 100 08/01/18 04:00 134 18 151/96 100 08/01/18 03:59 97.4 F L 08/01/18 03:50 123 08/01/18 03:00 123 20 147/83 99 08/01/18 02:00 90 18 146/63 100 08/01/18 01:00 96 18 146/63 100 08/01/18 00:04 98.7 F 07/31/18 23:29 98 07/31/18 23:18 16 111/48 100 07/31/18 23:00 92 18 111/48 100 07/31/18 22:00 98 18 119/55 100 07/31/18 21:00 99 18 131/57 100 07/31/18 20:16 98.2 F 07/31/18 20:10 100 07/31/18 20:00 96 20 128/58 100 07/31/18 19:00 101 20 135/57 100 07/31/18 18:00 104 18 132/57 100 07/31/18 17:10 17 150/62 100 07/31/18 17:00 105 15 128/55 100 07/31/18 16:20 98.5 F 16 119/56 07/31/18 16:00 104 15 132/59 100 07/31/18 15:45 21 115/63 100 07/31/18 15:30 121/59 07/31/18 15:15 110/57 07/31/18 15:00 90 13 115/60 100 07/31/18 14:45 130/62 07/31/18 14:30 117/57 07/31/18 14:15 118/63 07/31/18 14:00 90 14 126/68 100 07/31/18 13:45 16 119/62 100 07/31/18 13:30 86/51 07/31/18 13:15 90/53 07/31/18 13:00 89 12 98/54 100 07/31/18 12:45 104/61 07/31/18 12:30 97.7 F 16 113/56 07/31/18 12:00 97.7 F 98 16 120/56 100 07/31/18 11:16 12 100 07/31/18 11:00 89 16 120/86 94 07/31/18 10:00 106 18 88/51 97 07/31/18 09:55 17 88/41 97 Intake and Output 07/31/18 08/01/18 08/01/18 23:59 07:59 15:59 Intake Total 100 / 100 Output Total 1949 0 / 0 Balance -1757 / -1757 100 / 100 Intake: IV Fluids 100 / 100 FentaNYL (PF) 1,000 MCG In 0.9 73 / 73 % Sodium Chloride 80 ML @ 50 MCG/HR 5 mls/hr IVC CONT [facility] Rx #:[id number] Diprivan 1,000 mg In 100 ml @ 5 20 / 20 MCG/KG/MIN 1.899 mls/hr IVC . Q24H [facility] Rx#:[id number] Zosyn 3.375 GM In 0.9 % Sodium 100 / 100 100 / 100 Chloride (Mini-Bag +) 100 ML @ 25 mls/hr IVPB Q12H [facility] Rx#: [id number] Output: Urine 0 / 0 0 / 0 Total Dialysis (HD) Output 1949 Other: Weight 63.3 kg Blood Glucose* 126 181 Hemodialysis Net Fluid Removed 1000 (mL) Patient Weight 08/01/18 23:59 Weight 63.3 kg - General Appearance General appearance: Present: well-developed, well-nourished EENT: Present: ATNC, hearing intact, vision intact Neck: Present: supple Respiratory: Present: clear Cardiology: Present: no edema, normal S1, normal S2 Dialysis Vascular Access: Arteriovenous Fistula thrill: Yes bruit: Yes Gastrointestinal: Present: normoactive bowel sounds, no tenderness, no guarding Integumentary: Present: no rash, warm and dry Neurologic: Present: alert and oriented x3 Psychiatric: Present: mood/affect appropriate, cooperative - Lab 08/01/18 03:57 08/01/18 03:57 Most recent lab results ABG pH 7.24 pH Units (7.32-7.45) L 07/31/18 06:17 ABG pCO2 57 mmHg (35-45) H 07/31/18 06:17 ABG pO2 85 mmHg (85-104) 07/31/18 06:17 ABG HCO3 24 mEq/L (21-27) 07/31/18 06:17 ABG O2 Saturation 94 % (95-98) L 07/31/18 06:17 Calcium 9.7 mg/dL (8.6-10.3) 08/01/18 03:57 Phosphorus 6.7 mg/dL (2.7-4.5) H 08/01/18 03:57 Magnesium 2.0 mg/dL (1.6-2.6) 08/01/18 03:57 Consult Discharge Plan - Plan Referrals: Vladimir Chaidez MD [Primary Care Provider] -
[2018-08-01 09:54] LABS: Appearance of Body Fluid Cloudy (Clear); Volume of Body Fluid 16 mL
[2018-08-01 09:57] LABS: Appearance of Body Fluid Cloudy (Clear)
[2018-08-01 09:58] LABS: Volume of Body Fluid 17 mL
[2018-08-01] MEDS ORDERED: LEVOFLOXACIN 500 MG/100 ML MLS IVPB SCH (16:00)
[2018-08-02] MEDS ORDERED: Vancomycin 1 EACH in 0.9 % Sodium Chloride 250 ML IVPB PRN (00:15)
[2018-08-02] MEDS ORDERED: Naloxone 0.4 MG/ML INJ IVP PRN (00:15)
[2018-08-02] MEDS: Ipratropium/Albuterol Neb 3 ML IH SCH ×4 (04:04→22:24)
[2018-08-02 04:38] LABS: Basophils % 0.1 %; Hematocrit 31.7 % (35.3-44.9); Hemoglobin 10.4 g/dL (11.5-15.4); Immature Granulocytes % 0.6 % (0-4); Lymphocytes # 0.3 K/mcL (0.6-4.6); Lymphocytes % 2.7 %; Mean Corpuscular HGB Conc 32.8 g/dL (31.6-35.5); Mean Corpuscular Hemoglobin 31.4 pg (28.0-33.3); Mean Corpuscular Volume 95.8 fL (83.0-100.0); Mean Platelet Volume 10.8 fL (9.4-12.4); Monocytes # 0.3 K/mcL (0.0-1.3); Monocytes % 2.8 %; Neutrophils # 10.7 K/mcL (1.6-8.9); Platelet Count 171 K/mcL (140-400); Red Blood Count 3.31 M/mcL (3.82-4.97); Red Cell Distribution Width 14.3 % (11.5-14.5); Segmented Neutrophils % 93.8 %
[2018-08-02 04:59] LABS: Albumin 3.2 g/dL (3.5-5.7); Albumin/Globulin Ratio 1.5 (1.1-2.2); Bilirubin,Total 0.5 mg/dL (0.3-1.0); Globulin 2.2 g/dL (2.4-3.5); Magnesium 2.2 mg/dL (1.6-2.6); Phosphorous 8.3 mg/dL (2.7-4.5); Potassium 4.9 mEq/L (3.5-5.1); Total Protein 5.4 g/dL (6.4-8.9)
[2018-08-02] MEDS: *HR* Heparin 5,000 UNIT/ML VIAL SQ SCH ×2 (06:29→18:13)
[2018-08-02] MEDS ORDERED: Pantoprazole 40 MG VIAL IVP SCH (06:30)
[2018-08-02] MEDS ORDERED: Piperacillin/Tazobactam 3.375 GM in 0.9 % Sodium Chloride Mini Bag 100 ML IVPB SCH ×2 (08:00→09:00)
[2018-08-02] MEDS ORDERED: 0.9 % Sodium Chloride 250 ML IVC PRN (08:03)
[2018-08-02 08:57] LABS: Mycoplasma pneumoniae IgG 0.04 U/L (<=0.09)
[2018-08-02] MEDS ORDERED: predniSONE 20 MG TABLET PO SCH (09:00)
[2018-08-02] MEDS: predniSONE 20 MG TABLET PO SCH (09:42)
--- NOTE | 2018-08-02 10:11 | Nephrology Progress Note ---
Addendum entered and electronically signed by Raffaele Chan DO 08/07/18 10:15: I have personally performed a face to face evaluation on this patient. I have reviewed and agree with the care plan. History and Exam by me shows: ESRD on HD and due for dialysis today. I reviewed the labs, vitals, progress notes, med list and etc of this high risk patient. Original Note: Date of Encounter: 08/02/18 Time of Encounter: 10:08 - Assessment and Plan (1) ESRD on dialysis Current Visit: Yes Status: Chronic Plan for HD today. Current regimen is MWF with Dr. Araujo. Avoid nephrotoxins and renal dose all medications. Strict I/O (2) HTN (hypertension) Current Visit: No Status: Chronic Stable, BP 149/62 Qualifiers: Hypertension type: essential hypertension Qualified Code(s): I10 - Essential (primary) hypertension (3) Anemia in chronic kidney disease (CKD) Current Visit: No Status: Chronic Goal Hgb is 10-11 Hgb is 10.4 today, stable. Qualifiers: Chronic kidney disease stage: on chronic dialysis Qualified Code(s): N18.6 - End stage renal disease; D63.1 - Anemia in chronic kidney disease; D63.1 - Anemia in chronic kidney disease; Z99.2 - Dependence on renal dialysis; Z99.2 - Dependence on renal dialysis; Z99.2 - Dependence on renal dialysis; Z99.2 - Dependence on renal dialysis (4) Acute and chronic respiratory failure Current Visit: No Status: Acute per primary. Qualifiers: Respiratory failure complication: hypoxia Qualified Code(s): J96.21 - Acute and chronic respiratory failure with hypoxia (5) Hyperkalemia Current Visit: Yes Status: Resolved resolved is 4.9 today. Subjective Principal diagnosis: ESRD Interval history: Pt seen and examined doing well. Denies CP, admits SOB is improved. Objective - Vital Signs Vital signs: Vital Signs Temp Pulse Resp BP Pulse Ox 08/02/18 06:45 98.3 F 117 16 149/62 97 08/02/18 04:04 16 96 08/02/18 00:18 98.5 F 116 16 158/61 95 08/01/18 23:38 98.1 F 118 16 166/67 100 08/01/18 23:27 14 100 08/01/18 23:00 117 20 143/73 99 08/01/18 22:00 117 23 152/55 100 08/01/18 21:00 98.1 F 116 21 169/85 100 08/01/18 20:56 116 08/01/18 20:00 117 20 170/76 100 08/01/18 19:00 118 14 159/85 96 08/01/18 18:00 121 22 155/61 100 08/01/18 17:00 123 22 144/63 99 08/01/18 16:05 18 99 08/01/18 16:00 121 24 145/88 100 08/01/18 15:00 118 22 161/76 100 08/01/18 14:00 120 20 124/80 100 08/01/18 13:00 123 18 122/95 100 08/01/18 12:00 124 20 137/65 95 08/01/18 11:16 16 99 08/01/18 11:00 97.7 F 123 12 139/84 100 Intake and Output 08/01/18 08/02/18 08/02/18 23:59 07:59 15:59 Intake Total 250 / 250 240 / 240 320 / 320 Output Total 0 / 0 Balance 250 / 250 240 / 240 320 / 320 Intake: IV Fluids 250 / 250 200 / 200 Cardizem 50 MG In 0.9 % Sodium 50 / 50 Chloride 40 ML @ 2.5 MG/HR 2.5 mls/hr IVC .Q20H [facility] Rx#: [id number] Levaquin Premix 500mg/100mL 500 100 / 100 mg In 100 ml @ 100 mls/hr IVPB Q48H [facility] Rx#:[id number] Zosyn 3.375 GM In 0.9 % Sodium 100 / 100 100 / 100 Chloride (Mini-Bag +) 100 ML @ 25 mls/hr IVPB Q12H [facility] Rx#: [id number] Oral 240 / 240 120 / 120 Output: Urine 0 / 0 Other: Meal Dinner Breakfast Percent of Meal Consumed 70% 85% Weight 64.1 kg Blood Glucose* 148 114 Patient Weight 08/02/18 23:59 Weight 64.1 kg - General Appearance General appearance: Present: well-developed, well-nourished EENT: Present: ATNC, hearing intact, vision intact Neck: Present: supple Respiratory: Present: clear, rhonchi Cardiology: Present: no edema, normal S1, normal S2 Dialysis Vascular Access: Arteriovenous Fistula thrill: Yes bruit: Yes Gastrointestinal: Present: normoactive bowel sounds, no tenderness, no guarding Integumentary: Present: no rash, warm and dry Neurologic: Present: alert and oriented x3 Psychiatric: Present: mood/affect appropriate, cooperative - Lab 08/02/18 04:08 08/02/18 04:08 Most recent lab results ABG pH 7.24 pH Units (7.32-7.45) L 07/31/18 06:17 ABG pCO2 57 mmHg (35-45) H 07/31/18 06:17 ABG pO2 85 mmHg (85-104) 07/31/18 06:17 ABG HCO3 24 mEq/L (21-27) 07/31/18 06:17 ABG O2 Saturation 94 % (95-98) L 07/31/18 06:17 Calcium 10.0 mg/dL (8.6-10.3) 08/02/18 04:08 Phosphorus 8.3 mg/dL (2.7-4.5) H 08/02/18 04:08 Magnesium 2.2 mg/dL (1.6-2.6) 08/02/18 04:08 Consult Discharge Plan - Plan Referrals: Vladimir Chaidez MD [Primary Care Provider] -
[2018-08-02 10:26] LABS: Troponin I 1.55 ng/mL (< 0.04)
--- NOTE | 2018-08-02 11:09 | Infectious Disease Consult ---
Date of Encounter: 08/02/18 Time of Encounter: 11:07 Assessment and Plan (1) Sepsis Status: Acute Assessment and plan: The patient had two sepsis criteria on admission. Likely secondary to MRSA bacteremia and pneumonia. Improved. WBC trending down. Tachycardia persists. Afebrile x 48 hours. Peripheral blood cultures drawn 07/30/18 are positive 2/2 sets for MRSA. Repeat blood cultures drawn 08/01/18 are pending x 2 sets. Qualifiers: Sepsis type: methicillin resistant Staphylococcus aureus Qualified Code(s): A41.02 - Sepsis due to Methicillin resistant Staphylococcus aureus (2) Bacteremia Status: Acute Assessment and plan: Causative organism: MRSA. Source: Unclear, but possibly PNA? Peripheral blood cultures drawn 07/30/18 are positive 2/2 sets for MRSA. Repeat blood cultures drawn 08/01/18 are pending x 2 sets. Uncomplicated. No hardware/pacemaker or evidence of metastatic infection. 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 No endocarditis stigmata noted on exam. TTE was suboptimal due to poor windows, but negative for vegetations. She will likely need a [place] prior to discharge. Await repeat blood cultures. Check rhuematoid factor. Continue Vancomycin IV. Pharmacy to dose. Goal trough ~15. Duration of treatment depends on the clinical picture. Monitor labs for drug toxicity and dose-adjust antibiotics. (3) HCAP (healthcare-associated pneumonia) Status: Acute Assessment and plan: Location: LUP, RML, RLL per bronchoscopy. Causative organism: Unclear. The patient has had multiple bronchoscopies in the past with previous cultures positive for Aspergillus fumigatus (05/03/18), Stenotrophomonas maltophilia (03/28/18), MRSA (02/17/18), and Serratia marcescens (11/25/17). CXR and CT chest findings noted and reviewed. Status post bronchoscopy 07/31/18 that showed mucupurulent secretions and mucous plugging. BAL cultures are no growth. Pathology/cytology pending. RIP negative. Strep pneumo and Legionella UATs were not collected since the patient is anuric secondary to ESRD. Continue Vancomycin IV. Pharmacy to dose. Goal trough ~15. Continue Levaquin 500mg IV Q48H since it will cover previous organisms found on BAL. Discontinue Zosyn. Duration of treatment depends on the clinical picture. Monitor labs and for drug toxicity and dose-adjust antibiotics. (4) Acute exacerbation of chronic obstructive airways disease Status: Acute Assessment and plan: Likely contributing to the patient's acute respiratory failure. Supportive care per the primary and pulmonology teams. (5) Acute and chronic respiratory failure with hypoxia Status: Acute Assessment and plan: Likely multifactorial: pneumonia + COPD exacerbation + fluid volume overload. Intubated 07/30/18. Extubated 07/31/18. Further management per the pulmonary team. (6) Elevated troponin Status: Acute Assessment and plan: Etiology unclear. Consider cardiology to evaluate. Further workup and management per the primary team. (7) Pulmonary edema Status: Acute Qualifiers: Chronicity: acute Qualified Code(s): J81.0 - Acute pulmonary edema (8) COPD (chronic obstructive pulmonary disease) Status: Chronic Qualifiers: COPD type: COPD with acute exacerbation Qualified Code(s): J44.1 - Chronic obstructive pulmonary disease with (acute) exacerbation (9) HTN (hypertension) Status: Chronic Qualifiers: Hypertension type: essential hypertension Qualified Code(s): I10 - Essential (primary) hypertension (10) ESRD on dialysis Status: Chronic Assessment and plan: Nephrology consulted and following. 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 Infectious Disease HPI - Data of Consult Patient: known to practice within the last 3 years Consult date: 08/02/18 Requesting Physician: Jessica Sampson Primary Care Provider: Vladimir Chaidez MD - Consult Narrative Reason for consult: MRSA bacteremia History of present illness: Ms. Carmona is a 77 year old female with a past medical history of A. fib, COPD, end-stage renal disease on hemodialysis Tuesday, Tuesday, and Tuesday, hypertension, remote history of left nephrectomy, and AV fistula to the left arm. The patient was admitted to the hospital July 30 for fluid volume overload and COPD exacerbation. We are consulted August 02 for antibiotic recommendations for MRSA bacteremia. Recent, the patient's a 77-year-old female with past medical history as stated above. The patient is noted to the ID services with consult on her case in the past. Most recently, was back in May 2018 at which time the patient presented with hypoxia secondary to mucous plugging. He was started on azithromycin for its anti-inflammatory properties and Bactrim for 30 days. Rar letitia, the patient awoke on the day of admission with severe shortness of breath. Upon arrival to the ER, the patient was tachypneic with leukocytosis and hypoxia. Labs revealed a kidney function indicative of her end-stage renal disease. Lactic acid was normal. Troponins were mildly elevated at 0.07. Chest x-ray showed pulmonary vascular congestion and mild cardiomegaly with left perihilar opacity concerning for asymmetric edema versus pneumonia. There was also bibasilar airspace opacities worse on the right concerning for atelectasis versus pneumonia versus aspiration. Blood cultures were obtained 2 sets from a peripheral stick and the patient was admitted to the hospital for further evaluation. On admission, she was taken for emergent hemodialysis. While in the HD unit, became hypotensive and tachycardic. Her respiratory status worsened and she was transferred to the intensive. Where she was intubated. She continued to have fevers with a MAXIMUM TEMPERATURE of 103. Her white blood cell count went up to 22,000 with neutrophilic predominance. She had a transthoracic echocardiogram that was suboptimal due to poor windows, but did show an EF of 65%. Respiratory infectious panel was negative. She underwent bronchoscopy on 07/31/18 that revealed mucopurulent secretions and mucous plugging in the return fluid and findings indicative of pneumonia. The BAL cultures are negative. Nephrology was consulted to assist with hemodialysis management. Pulmonology was consulted to assist with ventilator and critical care management. She was extubated on 07/31/18 to nasal cannula and has been tolerating well. Since then, the patient's white blood cell count has improved. Blood cultures drawn in the emergency department came back +2 out of 2 sets for MRSA. Repeat blood cultures on 08/01/18 are pending. She has been afebrile for 48 hours. She continues to have tachycardia. Currently, the patient is on vancomycin, Levaquin, and Zosyn. We have been asked to evaluate and make further recommendations. During my exam today, the patient states that she started feeling unwell the Tuesday prior to admission with persistent dry hacking cough and shortness of breath. She states her symptoms persisted into Tuesday and she knew she was not able to make it to dialysis on Tuesday so she presented to the emergency department. She denies any fevers or chills or rigors. Denies headache or neck pain. She denies any recent congestion, earache, or sore throat. She denied any chest pain. She denied any nausea or vomiting or diarrhea. She states her appetite has not been very good. She denied any oral thrush or any skin lesions. She states she has been having some issues with her fistula bleeding after dialysis, but denies any redness or warmth or pain at the fistula site. She states she has been 100% compliant with her dialysis. She does report some mild upper back pain that started a couple of days ago. 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 The patient lives at home with her and son. She denies recent sick contacts. Denies chronic infectious diseases. Denies recent travel. Denies tobacco, alcohol, or illicit drug use. CC: Jessica Sampson Past Med Surg Social Fam HX - Past Medical History Attestation: Yes The following information was validated with the patient. Source: patient, old records reviewed, nursing notes reviewed Medical history: atrial fibrillation, COPD, DVT, dialysis, hyperlipidemia, hypertension, osteoporosis, renal disease, other Additional medical history: broken right foot (2001), left arm fistula Psychiatric history: no psych history - Past Surgical History Surgical History: other Additional surgical history: back surgery L4-L5, , left nephrectomy for donation, cataract removal, CTR-left, A-V fistula placed in left arm. - Social History Smoking Status: Never smoker Smokeless Tobacco Status: No Alcohol use: none Drug use: none Occupational status: retired Current living situation: Home, With Family Activity Level: Independent ambulation Recent Out of Country Travel Within the Last 8 Weeks: No Exposure or Possible Exposure to Illness During Travel: No - Family History Mother Adopted: No Family Member Ethnicity: Non- Living Status: Hx Family Cardiac Disorders: No Hx Family Respiratory Disorders: No Hx Family Cancer: Yes Hx Family GI Disorders: No Hx Family Endocrine Disorder: No Hx Family Neuromuscular Disorders: No Hx Family Neurologic Disorders: No Hx Family HEENT Disorders: No Hx Family Autoimmune Disorders: No Infectious Disease-CN:Meds RX: Aspirin 81 mg PO DAILY 10/12/16 [History] RX: Atorvastatin [Lipitor] 40 mg PO HS 10/12/16 [History] RX: Budesonide/Formoterol 160/4.5 [Symbicort 160/4.5] 2 puff IH BIDR 10/12/16 [History] RX: Furosemide [Lasix] 20 mg PO QPM 10/12/16 [History] RX: Furosemide [Lasix] 40 mg PO QAM 10/12/16 [History] RX: Metoprolol XL (24 HR) Succ [Toprol Xl] 50 mg PO DAILY 01/14/17 [History] RX: Loratadine [Claritin] 10 mg PO DAILY 03/11/17 [History] RX: Sevelamer [Renvela] 4,000 mg PO TIDWM 03/11/17 [History] RX: Pregabalin [Lyrica] 50 mg PO BID 11/22/17 [History] RX: B Complex W-C No.20/Folic Acid [Virt-Caps Softgel] 1 mg PO DAILY 01/01/18 [History] RX: Hydralazine HCl 50 mg PO TID 03/17/18 [History] RX: Levothyroxine Sodium [Levoxyl] 50 mcg PO DAILY 03/17/18 [History] RX: amLODIPine [Norvasc] 5 mg PO BID 03/17/18 [History] RX: Acetylcysteine [N-Wylakp-u-Cysteine] 600 mg PO BID 04/17/18 [History] RX: Losartan [Cozaar] 50 mg PO DAILY #60 tablet 05/07/18 [Rx] RX: HYDROcodone BIT/Homatropine LQ [Hycodan Syrup] 5 ml PO Q6H PRN 05/19/18 [History] RX: predniSONE [PredniSONE] 10 mg PO DAILY 05/19/18 [History] RX: 3% Sodium Chloride Inhalation 4 ml IH Q12HR #60 vial.neb 05/23/18 [Rx] RX: Acetylcysteine 10% 2 ml IH A82NIRLL #60 inhsol 05/23/18 [Rx] RX: Albuterol Neb [Proventil Neb] 2.5 mg IH TIDR #120 inhsol 05/23/18 [Rx] RX: Azithromycin [Zithromax] 500 mg PO Q48H #30 tablet 05/23/18 [Rx] Allopurinol [Zyloprim 100 MG] 100 mg PO DAILY 07/30/18 [History] Ipratropium/Albuterol Neb [Duoneb] 3 ml IH Q6HR 07/30/18 [History] Sulfamethoxazole/Trimeth DS [Bactrim DS] 1 tab PO DAILY 07/30/18 [History] Tiotropium [place] [Spiriva Respimat] 2 puff IH DAILY 07/30/18 [History] Allergy/AdvReac Type Severity Reaction Status Date / Time codeine Allergy Rash Verified 07/30/18 14:27 gabapentin Allergy Itching Verified 07/30/18 14:27 All systems: reviewed and no additional remarkable complaints except as stated Exam - Constitutional Vitals: Temp Pulse Resp BP Pulse Ox 97.6 F 101 18 111/57 100 08/02/18 10:34 08/02/18 10:34 08/02/18 10:34 08/02/18 10:34 08/02/18 10:34 General appearance: average body habitus, cooperative, no acute distress - Head Head exam: Present: atraumatic, normal inspection, normocephalic - Eye Eye exam: Present: EOMI, normal appearance, PERRL Pupils: Present: normal accommodation Additional comments: No subconjunctival hemorrhage noted. - ENT ENT exam: Present: mucous membranes moist - Neck Neck exam: Present: normal inspection - Respiratory Respiratory exam: Present: CTAB. Absent: rales, respiratory distress, rhonchi, wheezes - Cardiovascular Cardiovascular exam: Present: irregular rhythm. Absent: tachycardia - GI/Abdominal GI/Abdominal exam: Present: normal bowel sounds, soft. Absent: distended, tenderness - Extremities Exam Extremities exam: Absent: joint swelling, normal inspection (AV fistula noted to the LUE without redness, warmth, edema, or tenderness noted. +/+.), pedal edema, tenderness - Back Exam Back exam: Present: normal inspection, paraspinal tenderness (Upper back). Absent: vertebral tenderness - Neurological Exam Neurological exam: Present: alert, oriented X3, no focal deficits - Psychiatric Psychiatric exam: Present: normal affect, normal mood - Skin Skin exam: Present: dry, intact, normal color, warm Additional comments: No endocarditis stigmata noted on exam. Infectious Disease CN: Results - Labs CBC & Chem 7: 08/03/18 01:30 08/03/18 01:30 Cultures: Cultures 07/30/18 21:02 Blood Culture - Final Peripheral Venipuncture Methicillin Resistant S.aureus 07/31/18 05:30 Sputum Culture - Preliminary Sputum 07/31/18 11:00 Respiratory Culture - Preliminary Right Middle Lobe Lung 07/31/18 10:57 Respiratory Culture - Preliminary Left Upper Lobe Lung 07/31/18 11:00 Acid Fast Stain - Final Right Middle Lobe Lung 07/31/18 10:57 Acid Fast Stain - Final Left Upper Lobe Lung 08/01/18 11:45 Blood Culture - Preliminary Peripheral Venipuncture Culture is incubating and being continuously monitored for growth. Final report to follow. 08/01/18 11:45 Blood Culture - Preliminary Peripheral Venipuncture Culture is incubating and being continuously monitored for growth. Final report to follow. 07/30/18 21:02 Blood Culture - Preliminary Peripheral Venipuncture Gram Positive Cocci Serology: Serology 07/31/18 07/31/18 07/31/18 Range/Units 12:10 12:10 11:00 Fluid Source right middle lobe keegan Fluid Volume 17 mL Fluid Appearance Cloudy A (Clear) Fluid RBC TNP Fld Tot Nucleated Cell TNP Fluid Seg Neutrophil % 84.6 % Fld Band Neutrophil % TNP Fluid Lymphocytes % TNP Fluid Monocytes % TNP Fluid Eosinophils % TNP Fluid Basophils % TNP Fluid Other Cells % 15.4 % Nasal Screen MRSA (PCR) Positive A (Negative) A. baumannii (PCR) (Not Detect) Chlamy pneumoniae PCR Not Detected (Not Detect) Adenovirus (PCR) Not Detected (Not Detect) B. pertussis DNA (PCR) Not Detected (Not Detect) B.parapertussis DNA PCR Not Detected (Not Detect) Priyanka albicans (PCR) (Not Detect) C. glabrata (PCR) (Not Detect) C. krusei (PCR) (Not Detect) C. parapsilosis (PCR) (Not Detect) C. tropicalis (PCR) (Not Detect) Coronavirus OC43 (PCR) Not Detected (Not Detect) Coronavirus HKU1 (PCR) Not Detected (Not Detect) Coronavirus 229E (PCR) Not Detected (Not Detect) Coronavirus NL63 (PCR) Not Detected (Not Detect) Enterobacteriac sp PCR (Not Detect) E. cloacae complex PCR (Not Detect) Enterococcus sp PCR (Not Detect) E. coli (PCR) (Not Detect) H. influenzae (PCR) (Not Detect) Hep Bs Antigen (Nonreactive) Hep Bs Antibody mIU/mL Human Metapneumovir PCR Not Detected (Not Detect) Influenza A (H1) PCR Not Detected (Not Detect) Influ A (H1N1/09) PCR Not Detected (Not Detect) Influenza A (H3) PCR Not Detected (Not Detect) Influenza A Untype (PCR) Not Detected (Not Detect) Influenza Type B (PCR) Not Detected (Not Detect) Klebsiella oxytoca PCR (Not Detect) Klebsiella pneumoniae (Not Detect) List. monocytogenes PCR (Not Detect) Mycoplasma pneumon IgG (<=0.09) U/L Mycoplasma pneumon IgM (<=0.76) U/L M.pneumoniae DNA (PCR) Not Detected (Not Detect) N. meningitidis (PCR) (Not Detect) Parainfluenza 1 (PCR) Not Detected (Not Detect) Parainfluenza 2 (PCR) Not Detected (Not Detect) Parainfluenza 3 (PCR) Not Detected (Not Detect) Parainfluenza 4 (PCR) Not Detected (Not Detect) Proteus species (PCR) (Not Detect) RSV (PCR) Not Detected (Not Detect) Entero/Rhino (PCR) Not Detected (Not Detect) Serratia marcescens PCR (Not Detect) Staphylococcus sp PCR (Not Detect) Staph aureus (PCR) (Not Detect) mecA-Methicil Res Gene (Not Detect) Streptococcus sp PCR (Not Detect) Group A Strep DNA (Not Detect) Group B Strep (PCR) (Not Detect) Strep pneumoniae (PCR) (Not Detect) P. aeruginosa (PCR) (Not Detect) Sydney/B-Vanco Res Genes (Not Detect) KPC (blaKPC) Detect PCR (Not Detect) 07/31/18 07/31/18 07/30/18 Range/Units 10:57 08:37 21:02 Fluid Source left upper lobe lung Fluid Volume 16 mL Fluid Appearance Cloudy A (Clear) Fluid RBC TNP Fld Tot Nucleated Cell TNP Fluid Seg Neutrophil % 92.3 % Fld Band Neutrophil % TNP Fluid Lymphocytes % TNP Fluid Monocytes % TNP Fluid Eosinophils % TNP Fluid Basophils % TNP Fluid Other Cells % 7.7 % Nasal Screen MRSA (PCR) (Negative) A. baumannii (PCR) Not Detected (Not Detect) Chlamy pneumoniae PCR (Not Detect) Adenovirus (PCR) (Not Detect) B. pertussis DNA (PCR) (Not Detect) B.parapertussis DNA PCR (Not Detect) Priyanka albicans (PCR) Not Detected (Not Detect) C. glabrata (PCR) Not Detected (Not Detect) C. krusei (PCR) Not Detected (Not Detect) C. parapsilosis (PCR) Not Detected (Not Detect) C. tropicalis (PCR) Not Detected (Not Detect) Coronavirus OC43 (PCR) (Not Detect) Coronavirus HKU1 (PCR) (Not Detect) Coronavirus 229E (PCR) (Not Detect) Coronavirus NL63 (PCR) (Not Detect) Enterobacteriac sp PCR Not Detected (Not Detect) E. cloacae complex PCR Not Detected (Not Detect) Enterococcus sp PCR Not Detected (Not Detect) E. coli (PCR) Not Detected (Not Detect) H. influenzae (PCR) Not Detected (Not Detect) Hep Bs Antigen (Nonreactive) Hep Bs Antibody mIU/mL Human Metapneumovir PCR (Not Detect) Influenza A (H1) PCR (Not Detect) Influ A (H1N1/09) PCR (Not Detect) Influenza A (H3) PCR (Not Detect) Influenza A Untype (PCR) (Not Detect) Influenza Type B (PCR) (Not Detect) Klebsiella oxytoca PCR Not Detected (Not Detect) Klebsiella pneumoniae Not Detected (Not Detect) List. monocytogenes PCR Not Detected (Not Detect) Mycoplasma pneumon IgG 0.04 (<=0.09) U/L Mycoplasma pneumon IgM 0.05 (<=0.76) U/L M.pneumoniae DNA (PCR) (Not Detect) N. meningitidis (PCR) Not Detected (Not Detect) Parainfluenza 1 (PCR) (Not Detect) Parainfluenza 2 (PCR) (Not Detect) Parainfluenza 3 (PCR) (Not Detect) Parainfluenza 4 (PCR) (Not Detect) Proteus species (PCR) Not Detected (Not Detect) RSV (PCR) (Not Detect) Entero/Rhino (PCR) (Not Detect) Serratia marcescens PCR Not Detected (Not Detect) Staphylococcus sp PCR DETECTED A (Not Detect) Staph aureus (PCR) DETECTED A (Not Detect) mecA-Methicil Res Gene DETECTED A (Not Detect) Streptococcus sp PCR Not Detected (Not Detect) Group A Strep DNA Not Detected (Not Detect) Group B Strep (PCR) Not Detected (Not Detect) Strep pneumoniae (PCR) Not Detected (Not Detect) P. aeruginosa (PCR) Not Detected (Not Detect) Sydney/B-Vanco Res Genes Not Detected (Not Detect) KPC (blaKPC) Detect PCR Not Detected (Not Detect) 07/30/18 Range/Units 17:51 Fluid Source Fluid Volume mL Fluid Appearance (Clear) Fluid RBC Fld Tot Nucleated Cell Fluid Seg Neutrophil % % Fld Band Neutrophil % Fluid Lymphocytes % Fluid Monocytes % Fluid Eosinophils % Fluid Basophils % Fluid Other Cells % % Nasal Screen MRSA (PCR) (Negative) A. baumannii (PCR) (Not Detect) Chlamy pneumoniae PCR (Not Detect) Adenovirus (PCR) (Not Detect) B. pertussis DNA (PCR) (Not Detect) B.parapertussis DNA PCR (Not Detect) Priyanka albicans (PCR) (Not Detect) C. glabrata (PCR) (Not Detect) C. krusei (PCR) (Not Detect) C. parapsilosis (PCR) (Not Detect) C. tropicalis (PCR) (Not Detect) Coronavirus OC43 (PCR) (Not Detect) Coronavirus HKU1 (PCR) (Not Detect) Coronavirus 229E (PCR) (Not Detect) Coronavirus NL63 (PCR) (Not Detect) Enterobacteriac sp PCR (Not Detect) E. cloacae complex PCR (Not Detect) Enterococcus sp PCR (Not Detect) E. coli (PCR) (Not Detect) H. influenzae (PCR) (Not Detect) Hep Bs Antigen Nonreactive (Nonreactive) Hep Bs Antibody 1.25 mIU/mL Human Metapneumovir PCR (Not Detect) Influenza A (H1) PCR (Not Detect) Influ A (H1N1/09) PCR (Not Detect) Influenza A (H3) PCR (Not Detect) Influenza A Untype (PCR) (Not Detect) Influenza Type B (PCR) (Not Detect) Klebsiella oxytoca PCR (Not Detect) Klebsiella pneumoniae (Not Detect) List. monocytogenes PCR (Not Detect) Mycoplasma pneumon IgG (<=0.09) U/L Mycoplasma pneumon IgM (<=0.76) U/L M.pneumoniae DNA (PCR) (Not Detect) N. meningitidis (PCR) (Not Detect) Parainfluenza 1 (PCR) (Not Detect) Parainfluenza 2 (PCR) (Not Detect) Parainfluenza 3 (PCR) (Not Detect) Parainfluenza 4 (PCR) (Not Detect) Proteus species (PCR) (Not Detect) RSV (PCR) (Not Detect) Entero/Rhino (PCR) (Not Detect) Serratia marcescens PCR (Not Detect) Staphylococcus sp PCR (Not Detect) Staph aureus (PCR) (Not Detect) mecA-Methicil Res Gene (Not Detect) Streptococcus sp PCR (Not Detect) Group A Strep DNA (Not Detect) Group B Strep (PCR) (Not Detect) Strep pneumoniae (PCR) (Not Detect) P. aeruginosa (PCR) (Not Detect) Sydney/B-Vanco Res Genes (Not Detect) KPC (blaKPC) Detect PCR (Not Detect) Consult Discharge Plan - Plan Referrals: Vladimir Chaidez MD [Primary Care Provider] - - Attending Attestation I examined this patient and my medical decision-making was reviewed with the Resident Physician. I agree with the documented findings, disposition and treatment plan as described except to the extent set forth below. This is an addendum to original report dictated by Stacey Briggs CNP. Please refer to Stacey's note for full detail. Patient is 77-year-old woman known to our service presented to [place] with sepsis like picture and was found to have MRSA bacteremia. We were asked to evaluate the patient think further recommendations. Assessment and plan: Sepsis MRSA bacteremia HCAP End-stage renal disease on hemodialysis COPD and pulmonary edema Tracheobronchomalacia Recommendations Based on previous cultures from the sputum including MRSA, stenotrophomonas and Serratia we will switch the patient to levofloxacin that should cover the Serratia and stenotrophomonas Continue vancomycin with goal Vanco level of 15-20 We will ask pharmacy to help with the dosing and we will dose after dialysis Duration of treatment depends on the clinical picture and a [place] finding but at least 2 weeks IV No need for a central line since we can treat with vancomycin on dialysis days after dialysis Monitor labs and for drug toxicity
--- NOTE | 2018-08-02 13:16 | Internal Med Progress Note ---
Hospitalist Progress Note - Encounter Date of Encounter: 08/02/18 Time of Encounter: 09:00 - Subjective Interval History: Pt feels fine, denies fever/chest pain/SOB. Still tachycardia. - Exam Vitals: Temp Pulse Resp BP Pulse Ox 97.6 F 101 18 111/57 100 08/02/18 10:34 08/02/18 10:34 08/02/18 10:34 08/02/18 10:34 08/02/18 10:34 Exam: AAO x 3, in NAD HEENT: NC/AT, PERRL Neck: Supple, no JVD Lungs: CTA b/l Heart: S1S2, irregularly irregular, tachycardia Abd: Soft, NT, BS normal Ext: No pedal edema Neuro: No focal deficit. - Assessment and Plan (1) Acute respiratory distress Current Visit: No Status: Acute Assessment and Plan: Most likely 2/2 volume over load/PNA. Improved now after HD and abx use. (2) ESRD on dialysis Current Visit: Yes Status: Chronic Assessment and Plan: Nephro on case, cont HD (3) COPD (chronic obstructive pulmonary disease) Current Visit: Yes Status: Chronic Assessment and Plan: No wheezing, will taper down steroid. Cont home meds. (4) HTN (hypertension) Current Visit: No Status: Chronic Assessment and Plan: Cont home meds. Closely monitor BP. (5) Hyperkalemia Current Visit: Yes Status: Resolved Assessment and Plan: Improved after HD. (6) Volume overload Current Visit: Yes Status: Acute Assessment and Plan: Improved after HD. (7) Bacteremia Current Visit: Yes Status: Acute Assessment and Plan: Blood culture positive for MRSA. - ID consult appreciated - Cont Vanco - May needs [place] upon discharge. (8) Elevated troponin Current Visit: Yes Status: Acute Assessment and Plan: Pt has mildly elevated troponin on admission but not see the peak of troponin. Followed troponin still high. Most likely due to sepsis/bacteremia/HCAP. Pt denies chest pain. - Will cont cardiac monitoring - 3 sets troponin to see the peak of troponin - Cont ASA and BB - Consult cardio. (9) Atrial fibrillation with RVR Current Visit: Yes Status: Chronic Assessment and Plan: Pt has Hx of PAF. HR is better controlled after resume home meds metoprolol. Increase dose to 50mg po bid, will swithch to XL 50mg po qd on tomorrow am. Previous cardio consult note reviewed, not on AC b/o fall risk and hx of GI bleed. On ASA. (10) HCAP (healthcare-associated pneumonia) Current Visit: No Status: Acute Assessment and Plan: Cont vanco and zosyn so far. ID on case. DVT Prophylaxis: Heparin SC - Time Spent with Patient Total time spent is greater than 50% in coordination of care (as documented) at patient's floor/unit and/or counseling patient: 40 min Greater than 35 minutes Plan of Care Discussed with: patient Internal Medicine: Result - Labs CBC & Chem 7: 08/02/18 04:08 08/02/18 04:08 Labs: Short CBC 08/02/18 Range/Units 04:08 WBC 11.4 H (4.3-11.1) K/mcL Hgb 10.4 L (11.5-15.4) g/dL Hct 31.7 L (35.3-44.9) % Plt Count 171 (140-400) K/mcL Neutrophils # 10.7 H (1.6-8.9) K/mcL BMP 08/02/18 04:08 Sodium 134 L Potassium 4.9 Chloride 95 L Carbon Dioxide 26 BUN 73 H Creatinine 5.93 H Glucose 128 H Calcium 10.0 Cardiac Enzymes 08/02/18 Range/Units 04:08 Troponin I 1.55 H* (< 0.04) ng/mL Liver Function 08/02/18 Range/Units 04:08 Total Bilirubin 0.5 (0.3-1.0) mg/dL AST 34 (13-39) Units/L ALT 26 (7-52) Units/L Alkaline Phosphatase 70 (34-104) Units/L Albumin 3.2 L (3.5-5.7) g/dL - ABG Interpretation ABG results: ABG ABG pH 7.24 pH Units (7.32-7.45) L 07/31/18 06:17 ABG pCO2 57 mmHg (35-45) H 07/31/18 06:17 ABG pO2 85 mmHg (85-104) 07/31/18 06:17 ABG O2 Saturation 94 % (95-98) L 07/31/18 06:17 PT/INR, D-dimer PT 10.0 Seconds (9.4-12.1) 07/30/18 21:02 Consult Discharge Plan - Plan Referrals: Vladimir Chaidez MD [Primary Care Provider] - (3) COPD (chronic obstructive pulmonary disease) Qualifiers: COPD type: COPD with acute exacerbation Qualified Code(s): J44.1 - Chronic obstructive pulmonary disease with (acute) exacerbation (4) HTN (hypertension) Qualifiers: Hypertension type: essential hypertension Qualified Code(s): I10 - Essential (primary) hypertension (6) Volume overload Qualifiers: Hypervolemia type: unspecified Qualified Code(s): E87.70 - Fluid overload, unspecified
[2018-08-02 14:04] LABS: mecA Methicillin-Resist Gene DETECTED (Not Detect)
[2018-08-02 14:05] LABS: Acinetobacter baumannii by PCR Not Detected (Not Detect); Candida albicans by PCR Not Detected (Not Detect); Candida glabrata by PCR Not Detected (Not Detect); Candida krusei by PCR Not Detected (Not Detect); Candida parapsilosis by PCR Not Detected (Not Detect); Candida tropicalis by PCR Not Detected (Not Detect); Enterobacter cloacae Cmplx PCR Not Detected (Not Detect); Enterobacteriaceae by PCR Not Detected (Not Detect); Enterococcus by PCR Not Detected (Not Detect); Escherichia coli by PCR Not Detected (Not Detect); Klebsiella oxytoca by PCR Not Detected (Not Detect); Klebsiella pneumoniae by PCR Not Detected (Not Detect); Proteus by PCR Not Detected (Not Detect); Pseudomonas aeruginosa by PCR Not Detected (Not Detect); Serratia marcescens by PCR Not Detected (Not Detect); Staphylococcus aureus by PCR DETECTED (Not Detect); Staphylococcus by PCR DETECTED (Not Detect); Streptococcus agalactiae(B)PCR Not Detected (Not Detect); Streptococcus by PCR Not Detected (Not Detect); Streptococcus pneumoniae PCR Not Detected (Not Detect); Streptococcus pyogenes (A) PCR Not Detected (Not Detect)
--- NOTE | 2018-08-02 14:32 | Cardiology Consult Note ---
<Flakito Burt - Last Filed: 08/02/18 14:28> Date of Encounter: 08/02/18 Time of Encounter: 14:00 Assessment and Plan (1) Elevated troponin Current Visit: Yes Status: Acute Troponin elevation 0.07, 0.07, 0.09, 0.22, 1.55. Suspect demand ischemia in the setting of MRSA bacteremia, PNA, and respiratory failure. EKG shows atrial fibrillation with RVR HR 123. Note ST depression in the lateral leads. TTE this admit -EF 65%, No WMA, mild LVH, mild DD, mild , mild to moderate PAH. Recommend continuing medical therapy. No further testing at this time. Consider ischemic evaluation in the future once PNA resolved. (2) Atrial fibrillation with RVR Current Visit: Yes Status: Chronic Noted pt had atrial fibrillation with RVR in the setting of sepsis. HR improved. Metoprolol increased by primary team today. Continue to monitor. 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 (3) Bacteremia Current Visit: Yes Status: Acute Found to have blood cultures x 2 possibly secondary to PNA. No stigmata of endocarditis. ID recommends ARGENTINA prior to D/C. Discussion w patient/family: The assessment and plan as outlined above was discussed with the patient and/or family members who expressed understanding and agreement. All questions were answered. Thank you for involving us in the care of your patient. Please call with any questions. History of Present Illness Consult date: 08/02/18 Requesting physician: Сергей Gutierrez Consult reason: elevated troponin Chief complaint: SOB History of present illness: Ms. Carmona is a 77 year old female with past medical history significant for COPD, ESRD on dialysis, and atrial fibrillation who presented to the hospital with 24 hours of increasing SOB on tuesday. During a dialysis session she developed increased SOB with hypoxia and required intubation. She was found to have PNA , pleural effusions bilaterally, and COPD exacerbation. SHe was also found to have MRSA bacteremia. SHe is now extubated and on step-down floor Cardiology was consulted for elevated troponin. She denies prior history of CAD. No prior ischemic evaluation. She admits to chest discomfort with deep breaths. It is noted that she was evaluated in December 2017 for elevated troponin in the setting of hypoxia. She was deemed poor candidate for [facility] due to anemia. Past Med Surg Social Fam HX - Past Medical History Attestation: Yes The following information was validated with the patient. Source: patient Medical history: atrial fibrillation, COPD, DVT, dialysis, hyperlipidemia, hypertension, osteoporosis, renal disease, other Additional medical history: broken right foot (2001), left arm fistula Psychiatric history: no psych history - Past Surgical History Surgical History: other Additional surgical history: back surgery L4-L5, , left nephrectomy for donation, cataract removal, CTR-left, A-V fistula placed in left arm. - Social History Smoking Status: Never smoker Smokeless Tobacco Status: No Alcohol use: none Drug use: none - Family History Mother Adopted: No Family Member Ethnicity: Non- Living Status: Hx Family Cardiac Disorders: No Hx Family Respiratory Disorders: No Hx Family Cancer: Yes Hx Family GI Disorders: No Hx Family Endocrine Disorder: No Hx Family Neuromuscular Disorders: No Hx Family Neurologic Disorders: No Hx Family HEENT Disorders: No Hx Family Autoimmune Disorders: No Medications and Allergies RX: Aspirin 81 mg PO DAILY 10/12/16 [History] RX: Atorvastatin [Lipitor] 40 mg PO HS 10/12/16 [History] RX: Budesonide/Formoterol 160/4.5 [Symbicort 160/4.5] 2 puff IH BIDR 10/12/16 [History] RX: Furosemide [Lasix] 20 mg PO QPM 10/12/16 [History] RX: Furosemide [Lasix] 40 mg PO QAM 10/12/16 [History] RX: Metoprolol XL (24 HR) Succ [Toprol Xl] 50 mg PO DAILY 01/14/17 [History] RX: Loratadine [Claritin] 10 mg PO DAILY 03/11/17 [History] RX: Sevelamer [Renvela] 4,000 mg PO TIDWM 03/11/17 [History] RX: Pregabalin [Lyrica] 50 mg PO BID 11/22/17 [History] RX: B Complex W-C No.20/Folic Acid [Virt-Caps Softgel] 1 mg PO DAILY 01/01/18 [History] RX: Hydralazine HCl 50 mg PO TID 03/17/18 [History] RX: Levothyroxine Sodium [Levoxyl] 50 mcg PO DAILY 03/17/18 [History] RX: amLODIPine [Norvasc] 5 mg PO BID 03/17/18 [History] RX: Acetylcysteine [V-Mdeced-h-Cysteine] 600 mg PO BID 04/17/18 [History] RX: Losartan [Cozaar] 50 mg PO DAILY #60 tablet 05/07/18 [Rx] RX: HYDROcodone BIT/Homatropine LQ [Hycodan Syrup] 5 ml PO Q6H PRN 05/19/18 [History] RX: predniSONE [PredniSONE] 10 mg PO DAILY 05/19/18 [History] RX: 3% Sodium Chloride Inhalation 4 ml IH Q12HR #60 vial.neb 05/23/18 [Rx] RX: Acetylcysteine 10% 2 ml IH [id number] #60 inhsol 05/23/18 [Rx] RX: Albuterol Neb [Proventil Neb] 2.5 mg IH TIDR #120 inhsol 05/23/18 [Rx] RX: Azithromycin [Zithromax] 500 mg PO Q48H #30 tablet 05/23/18 [Rx] Allopurinol [Zyloprim 100 MG] 100 mg PO DAILY 07/30/18 [History] Ipratropium/Albuterol Neb [Duoneb] 3 ml IH Q6HR 07/30/18 [History] Sulfamethoxazole/Trimeth DS [Bactrim DS] 1 tab PO DAILY 07/30/18 [History] Tiotropium [place] [Spiriva Respimat] 2 puff IH DAILY 07/30/18 [History] Allergy/AdvReac Type Severity Reaction Status Date / Time codeine Allergy Rash Verified 07/30/18 14:27 gabapentin Allergy Itching Verified 07/30/18 14:27 All Systems Review: The remainder of the systems were reviewed and are negative Physical Examination Vital Signs, Last 4 Hours Temp Pulse Resp BP Pulse Ox 08/02/18 10:34 97.6 F 101 18 111/57 100 General: Conversant, No Apparent Distress HEENT: Atraumatic, Normocephaly, Mucus Membranes Moist Neck: No JVD, Normal carotid pulses Cardiac: Reg Rate and Rhythm, Normal S1 and S2, No Murmur Lungs: Normal Breath Sounds, No Wheeze, Rales, Rhonchi Neuro: Alert and responsive, No focal deficits noted Abdomen: Soft, Non-Tender Skin: No rashes noted on visualized skin Musculoskeletal: No Chest Wall Tenderness Extremities: No Clubbing, No Cyanosis, Normal Pulses, Other (1+ ankle edema bilaterally) Results 08/02/18 04:08 08/02/18 04:08 Lab Results 08/02/18 08/02/18 04:08 04:08 WBC 11.4 H Hgb 10.4 L Hct 31.7 L Plt Count 171 Sodium 134 L Potassium 4.9 Chloride 95 L Carbon Dioxide 26 BUN 73 H Creatinine 5.93 H Glucose 128 H Calcium 10.0 Magnesium 2.2 Total Bilirubin 0.5 AST 34 ALT 26 Alkaline Phosphatase 70 Troponin I 1.55 H* - Imaging and Cardiology Echo: report reviewed - EKG Interpretation EKG results cardiology: personally reviewed Consult Discharge Plan - Plan Referrals: Vladimir Chaidez MD [Primary Care Provider] - <Ciara Amezcua - Last Filed: 08/03/18 10:15> - Attending Attestation I have personally performed a face to face evaluation on this patient. I have reviewed and agree with the care plan. History and Exam by me shows: 77 YOF with PAF, currently extubated after pneumonia/resp failure and sepsis. Patient with ST changes concerning for ischemia along with elevated troponins. She has not been a candidate for AC due to falls and anemia in the past which likely place her at high risk for LHC and possible PCI also. At this time she is still a poor candidate for a LHC and is recovering from her underlying pulm infections. I do beleive she has underlying CAD in addition to her demand ischemia on intial presentation. Obce the patient is stable and is cleared for d ual antiplatelet therapy and possibly tripple therapy at [facility] for a short time (PAF also) we would reccomend pursuing a LHC and AC for stroke risk reduction for PAF. In regards to her bacteremia ID has asked for a [place], again with her resp insufficiency I do not think she stable to have it now. Once again when stable will arrange her [place]. Assessment and Plan Discussion w patient/family: The assessment and plan as outlined above was discussed with the patient and/or family members who expressed understanding and agreement. All questions were answered. Thank you for involving us in the care of your patient. Please call with any questions. History of Present Illness History of present illness: Ms. Carmona is a 77 year old female All Systems Review: The remainder of the systems were reviewed and are negative Physical Examination Vital Signs, Last 4 Hours Temp Pulse Resp BP Pulse Ox 08/03/18 06:42 98.0 F 98 18 160/87 94 Results 08/03/18 01:30 08/03/18 01:30 Lab Results 08/02/18 08/02/18 08/02/18 04:08 15:45 19:47 WBC Hgb Hct Plt Count Sodium Potassium Chloride Carbon Dioxide BUN Creatinine Glucose Calcium Troponin I 1.55 H* 1.53 H* 1.30 H* 08/03/18 08/03/18 08/03/18 01:30 01:30 01:30 WBC 8.3 Hgb 10.2 L Hct 31.2 L Plt Count 155 Sodium 136 Potassium 4.0 Chloride 97 L Carbon Dioxide 30 H BUN 32 H Creatinine 3.29 H Glucose 109 H Calcium 10.0 Troponin I 1.29 H*
[2018-08-02] MEDS ORDERED: 0.9 % Sodium Chloride 1,000 ML ONE (14:48)
[2018-08-02] MEDS ORDERED: Vancomycin 500 MG in 0.9 % Sodium Chloride Mini Bag 100 ML IVPB ONE (16:00)
[2018-08-02] MEDS: hydrALAZINE 25 MG TABLET PO SCH (17:30)
[2018-08-02] MEDS: Furosemide 20 MG TABLET PO SCH (17:32)
[2018-08-02] MEDS: Acetaminophen 325 MG TABLET PO PRN (18:09)
[2018-08-02] MEDS: Nitroglycerin 0.4 MG TAB.SUBL SL PRN (19:17)
[2018-08-02] MEDS ORDERED: traMADol 50 MG TABLET PO ONE (20:15)
[2018-08-02] MEDS: Budesonide/Formoterol 160/4.5 1 PUFF INH IH SCH (22:24)
[2018-08-03] MEDS: hydrALAZINE 25 MG TABLET PO SCH ×4 (00:28→21:19)
[2018-08-03 01:50] LABS: Basophils % 0.1 %; Hematocrit 31.2 % (35.3-44.9); Hemoglobin 10.2 g/dL (11.5-15.4); Lymphocytes # 0.3 K/mcL (0.6-4.6); Mean Corpuscular HGB Conc 32.7 g/dL (31.6-35.5); Mean Corpuscular Hemoglobin 31.6 pg (28.0-33.3); Mean Corpuscular Volume 96.6 fL (83.0-100.0); Mean Platelet Volume 10.7 fL (9.4-12.4); Monocytes # 0.5 K/mcL (0.0-1.3); Monocytes % 6.4 %; Neutrophils # 7.3 K/mcL (1.6-8.9); Platelet Count 155 K/mcL (140-400); Red Blood Count 3.23 M/mcL (3.82-4.97); Red Cell Distribution Width 14.2 % (11.5-14.5); Segmented Neutrophils % 88.5 %
[2018-08-03] MEDS: Acetaminophen 325 MG TABLET PO PRN ×4 (02:50→23:03)
[2018-08-03] MEDS: Ipratropium/Albuterol Neb 3 ML IH SCH ×4 (05:01→22:37)
[2018-08-03] MEDS: *HR* Heparin 5,000 UNIT/ML VIAL SQ SCH ×2 (05:12→16:51)
[2018-08-03] MEDS: Metoprolol XL (24 HR) Succ 50 MG TAB.ER.24H PO SCH (08:20)
[2018-08-03] MEDS: Levofloxacin 500 MG/100 ML 500 MG/100 ML BAG IVPB SCH (08:20)
[2018-08-03] MEDS: Renal Vitamin 1 CAP CAPSULE PO SCH (08:20)
[2018-08-03] MEDS: Lactobacillus 1 EACH CAP.SPRINK PO SCH (08:20)
[2018-08-03] MEDS: predniSONE 20 MG TABLET PO SCH (08:20)
[2018-08-03] MEDS: Aspirin 81 MG TAB.CHEW PO SCH (08:20)
[2018-08-03] MEDS: Furosemide 40 MG TABLET PO SCH (08:20)
[2018-08-03] MEDS: Budesonide/Formoterol 160/4.5 1 PUFF INH IH SCH ×2 (10:36→22:37)
--- NOTE | 2018-08-03 10:50 | Nephrology Progress Note ---
Addendum entered and electronically signed by Raffaele Chan DO 08/07/18 10:16: I have personally performed a face to face evaluation on this patient. I have reviewed and agree with the care plan. History and Exam by me shows: ESRD on HD. I reviewed the labs, vitals, progress notes, med list and etc of this high risk patient. Has ongoing respiratory issues. Original Note: Date of Encounter: 08/03/18 Time of Encounter: 09:22 - Assessment and Plan (1) ESRD on dialysis Current Visit: Yes Status: Chronic HD completed yesterday. Current regimen is MWF with Dr. Araujo. Avoid nephrotoxins and renal dose all medications. Strict I/O (2) HTN (hypertension) Current Visit: No Status: Chronic Stable, BP 160/87 Qualifiers: Hypertension type: essential hypertension Qualified Code(s): I10 - Essential (primary) hypertension (3) Anemia in chronic kidney disease (CKD) Current Visit: No Status: Chronic Goal Hgb is 10-11 Hgb is 10.2 today, stable. Qualifiers: Chronic kidney disease stage: on chronic dialysis Qualified Code(s): N18.6 - End stage renal disease; D63.1 - Anemia in chronic kidney disease; D63.1 - Anemia in chronic kidney disease; Z99.2 - Dependence on renal dialysis; Z99.2 - Dependence on renal dialysis; Z99.2 - Dependence on renal dialysis; Z99.2 - Dependence on renal dialysis (4) Acute and chronic respiratory failure Current Visit: No Status: Acute per primary. Qualifiers: Respiratory failure complication: hypoxia Qualified Code(s): J96.21 - Acute and chronic respiratory failure with hypoxia (5) Hyperkalemia Current Visit: Yes Status: Resolved resolved is 4.0 today. (6) Bacteremia Current Visit: Yes Status: Acute Per ID. Subjective Principal diagnosis: ESRD Interval history: Pt seen and examined doing well. Denies CP, admits to SOB. Denies nausea/vomi ting/diarrhea. Objective - Vital Signs Vital signs: Vital Signs Temp Pulse Resp BP Pulse Ox 08/03/18 06:42 98.0 F 98 18 160/87 94 08/03/18 05:02 18 94 08/03/18 03:25 97.7 F 102 15 139/69 97 08/03/18 00:23 98.4 F 103 16 164/82 08/02/18 22:26 16 92 08/02/18 17:05 97.2 F L 18 198/85 08/02/18 16:45 184/84 08/02/18 16:30 172/101 08/02/18 16:15 159/76 08/02/18 16:00 156/78 08/02/18 15:45 198/64 08/02/18 15:30 180/74 08/02/18 15:15 181/88 08/02/18 15:00 186/88 08/02/18 14:45 185/81 08/02/18 14:30 201/80 08/02/18 14:15 184/94 08/02/18 14:00 173/94 08/02/18 13:45 190/82 08/02/18 13:30 188/78 08/02/18 13:15 97.5 F L 18 185/97 08/02/18 10:34 97.6 F 101 18 111/57 100 08/02/18 10:21 18 97 Intake and Output 08/02/18 08/03/18 08/03/18 23:59 07:59 15:59 Intake Total 120 / 120 100 / 100 480 / 480 Output Total 2099 / 2100 Balance -1979 / -1979 100 / 100 480 / 480 Intake: Oral 120 / 120 100 / 100 480 / 480 Output: Total Dialysis (HD) Output 2099 / 2099 Other: Meal Dinner Breakfast Percent of Meal Consumed 50% 80% Weight 63.503 kg Hemodialysis Net Fluid Removed 1500 (mL) Patient Weight 08/03/18 23:59 Weight 63.503 kg - General Appearance General appearance: Present: well-developed, well-nourished EENT: Present: ATNC, hearing intact, vision intact Neck: Present: supple Respiratory: Present: clear Cardiology: Present: no edema, normal S1, normal S2 Dialysis Vascular Access: Arteriovenous Fistula thrill: Yes bruit: Yes Gastrointestinal: Present: normoactive bowel sounds, no tenderness, no guarding Integumentary: Present: no rash, warm and dry Neurologic: Present: alert and oriented x3 Psychiatric: Present: mood/affect appropriate, cooperative - Lab 08/03/18 01:30 08/03/18 01:30 Most recent lab results ABG pH 7.24 pH Units (7.32-7.45) L 07/31/18 06:17 ABG pCO2 57 mmHg (35-45) H 07/31/18 06:17 ABG pO2 85 mmHg (85-104) 07/31/18 06:17 ABG HCO3 24 mEq/L (21-27) 07/31/18 06:17 ABG O2 Saturation 94 % (95-98) L 07/31/18 06:17 Calcium 10.0 mg/dL (8.6-10.3) 08/03/18 01:30 Phosphorus 8.3 mg/dL (2.7-4.5) H 08/02/18 04:08 Magnesium 2.2 mg/dL (1.6-2.6) 08/02/18 04:08 Consult Discharge Plan - Plan Referrals: Vladimir Chaidez MD [Primary Care Provider] -
--- NOTE | 2018-08-03 10:51 | Infectious Disease Progress No ---
Date of Encounter: 08/03/18 Time of Encounter: 09:45 - Assessment and Plan (1) Sepsis Current Visit: Yes Status: Acute The patient had two sepsis criteria on admission. Likely secondary to MRSA bacteremia and pneumonia. Improved. WBC normalized. Tachycardia persists, but is improving. Afebrile x 72 hours. Peripheral blood cultures drawn 07/30/18 are positive 2/2 sets for MRSA. Repeat blood cultures drawn 08/01/18 are positive 1/2 sets. Repeat blood cultures drawn 08/02/18 are pending x 2 sets. Qualifiers: Sepsis type: methicillin resistant Staphylococcus aureus Qualified Code(s): A41.02 - Sepsis due to Methicillin resistant Staphylococcus aureus (2) Bacteremia Current Visit: Yes Status: Acute Causative organism: MRSA. Source: Unclear, but possibly PNA although her BAL cultures are negative. Peripheral blood cultures drawn 07/30/18 are positive 2/2 sets for MRSA. Repeat blood cultures drawn 08/01/18 are positive 1/2 sets. Repeat blood cultures drawn 08/02/18 are pending x 2 sets. Complicated due to the lack of identified source. No hardware/pacemaker or evidence of metastatic infection. 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 No endocarditis stigmata noted on exam. TTE was suboptimal due to poor windows, but negative for vegetations. She will likely need a [place] prior to discharge. Await repeat blood cultures. Check rhuematoid factor.--> <10. Continue Vancomycin IV. Pharmacy to dose. Goal trough ~15. Duration of treatment depends on the clinical picture. Monitor labs for drug toxicity and dose-adjust antibiotics. (3) HCAP (healthcare-associated pneumonia) Current Visit: No Status: Acute Location: LUP, RML, RLL per bronchoscopy. Causative organism: Unclear. The patient has had multiple bronchoscopies in the past with previous cultures positive for Aspergillus fumigatus (05/03/18), Stenotrophomonas maltophilia (03/28/18), MRSA (02/17/18), and Serratia marcescens (11/25/17). CXR and CT chest findings noted and reviewed. Status post bronchoscopy 07/31/18 that showed mucupurulent secretions and mucous plugging. BAL cultures are no growth. Pathology/cytology pending. RIP negative. Strep pneumo and Legionella UATs were not collected since the patient is anuric secondary to ESRD. Continue Vancomycin IV. Pharmacy to dose. Goal trough ~15. Continue Levaquin 500mg IV Q48H since it will cover previous organisms found on BAL. (day 5) Duration of treatment depends on the clinical picture. Monitor labs and for drug toxicity and dose-adjust antibiotics. (4) Acute exacerbation of chronic obstructive airways disease Current Visit: No Status: Acute Likely contributing to the patient's acute respiratory failure. Supportive care per the primary and pulmonology teams. (5) Acute and chronic respiratory failure with hypoxia Current Visit: Yes Status: Acute Likely multifactorial: pneumonia + COPD exacerbation + fluid volume overload. Intubated 07/30/18. Extubated 07/31/18. Further management per the pulmonary team. (6) Elevated troponin Current Visit: Yes Status: Acute Etiology unclear. Cadiology consulted. Further workup and management per the primary team. (7) Pulmonary edema Current Visit: No Status: Acute Qualifiers: Chronicity: acute Qualified Code(s): J81.0 - Acute pulmonary edema (8) COPD (chronic obstructive pulmonary disease) Current Visit: Yes Status: Chronic Qualifiers: COPD type: COPD with acute exacerbation Qualified Code(s): J44.1 - Chronic obstructive pulmonary disease with (acute) exacerbation (9) HTN (hypertension) Current Visit: No Status: Chronic Qualifiers: Hypertension type: essential hypertension Qualified Code(s): I10 - Essential (primary) hypertension (10) ESRD on dialysis Current Visit: Yes Status: Chronic Nephrology consulted and following. 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 - Subjective Interval history: Patient seen and examined. No acute events noted overnight. Patient sitting up in the bedside chair getting a bath. States she feel short of breath and wheezing this morning. Reports a dry nonproductive cough. Denies any fevers or chills or rigors. Denies any pain in her chest. Denies any nausea or vomiting or diarrhea. She reports her last bowel movement was about 3 days ago and that is not abnormal for her. She denies any urinary complaints. She denies any oral thrush or any skin lesions. She states she feels achy all over, but denies any specific pain complaints at this time. She states she did eat some breakfast this morning and her appetite is okay. Infect Dis PN-Objective Data - Labs CBC & Chem 7: 08/04/18 05:05 08/04/18 05:05 Labs: Laboratory Results - last 24 hr 08/01/18 08/02/18 08/02/18 11:45 04:08 15:45 WBC RBC Hgb Hct MCV MCH MCHC RDW Plt Count MPV Immature Gran % Seg Neutrophils % Lymphocytes % Monocytes % Eosinophils % Basophils % Neutrophils # Lymphocytes # Monocytes # Eosinophils # Basophils # Sodium 134 L Potassium 4.9 Chloride 95 L Carbon Dioxide 26 BUN 73 H Creatinine 5.93 H Est GFR ( Amer) 8 L Est GFR (Non-Af Amer) 7 L BUN/Creatinine Ratio 12 Glucose 128 H Calculated Osmolality 301 H Calcium 10.0 Phosphorus 8.3 H Magnesium 2.2 Total Bilirubin 0.5 AST 34 ALT 26 Alkaline Phosphatase 70 Troponin I 1.55 H* 1.53 H* Serum Total Protein 5.4 L Albumin 3.2 L Globulin 2.2 L Albumin/Globulin Ratio 1.5 Rheumatoid Factor A. baumannii (PCR) Not Detected Priyanka albicans (PCR) Not Detected C. glabrata (PCR) Not Detected C. krusei (PCR) Not Detected C. parapsilosis (PCR) Not Detected C. tropicalis (PCR) Not Detected Enterobacteriac sp PCR Not Detected E. cloacae complex PCR Not Detected Enterococcus sp PCR Not Detected E. coli (PCR) Not Detected H. influenzae (PCR) Not Detected Klebsiella oxytoca PCR Not Detected Klebsiella pneumoniae Not Detected List. monocytogenes PCR Not Detected N. meningitidis (PCR) Not Detected Proteus species (PCR) Not Detected Serratia marcescens PCR Not Detected Staphylococcus sp PCR DETECTED A Staph aureus (PCR) DETECTED A mecA-Methicil Res Gene DETECTED A Streptococcus sp PCR Not Detected Group A Strep DNA Not Detected Group B Strep (PCR) Not Detected Strep pneumoniae (PCR) Not Detected P. aeruginosa (PCR) Not Detected Sydney/B-Vanco Res Genes N/A KPC (blaKPC) Detect PCR N/A 08/02/18 08/03/18 08/03/18 19:47 01:30 01:30 WBC 8.3 RBC 3.23 L Hgb 10.2 L Hct 31.2 L MCV 96.6 MCH 31.6 MCHC 32.7 RDW 14.2 Plt Count 155 MPV 10.7 Immature Gran % 1.0 Seg Neutrophils % 88.5 Lymphocytes % 4.0 Monocytes % 6.4 Eosinophils % 0.0 Basophils % 0.1 Neutrophils # 7.3 Lymphocytes # 0.3 L Monocytes # 0.5 Eosinophils # 0.0 Basophils # 0.0 Sodium Potassium Chloride Carbon Dioxide BUN Creatinine Est GFR ( Amer) Est GFR (Non-Af Amer) BUN/Creatinine Ratio Glucose Calculated Osmolality Calcium Phosphorus Magnesium Total Bilirubin AST ALT Alkaline Phosphatase Troponin I 1.30 H* Serum Total Protein Albumin Globulin Albumin/Globulin Ratio Rheumatoid Factor < 10 A. baumannii (PCR) Priyanka albicans (PCR) C. glabrata (PCR) C. krusei (PCR) C. parapsilosis (PCR) C. tropicalis (PCR) Enterobacteriac sp PCR E. cloacae complex PCR Enterococcus sp PCR E. coli (PCR) H. influenzae (PCR) Klebsiella oxytoca PCR Klebsiella pneumoniae List. monocytogenes PCR N. meningitidis (PCR) Proteus species (PCR) Serratia marcescens PCR Staphylococcus sp PCR Staph aureus (PCR) mecA-Methicil Res Gene Streptococcus sp PCR Group A Strep DNA Group B Strep (PCR) Strep pneumoniae (PCR) P. aeruginosa (PCR) Sydney/B-Vanco Res Genes KPC (blaKPC) Detect PCR 08/03/18 08/03/18 01:30 01:30 WBC RBC Hgb Hct MCV MCH MCHC RDW Plt Count MPV Immature Gran % Seg Neutrophils % Lymphocytes % Monocytes % Eosinophils % Basophils % Neutrophils # Lymphocytes # Monocytes # Eosinophils # Basophils # Sodium 136 Potassium 4.0 Chloride 97 L Carbon Dioxide 30 H BUN 32 H Creatinine 3.29 H Est GFR ( Amer) 17 L Est GFR (Non-Af Amer) 14 L BUN/Creatinine Ratio 10 Glucose 109 H Calculated Osmolality 289 Calcium 10.0 Phosphorus Magnesium Total Bilirubin AST ALT Alkaline Phosphatase Troponin I 1.29 H* Serum Total Protein Albumin Globulin Albumin/Globulin Ratio Rheumatoid Factor A. baumannii (PCR) Priyanka albicans (PCR) C. glabrata (PCR) C. krusei (PCR) C. parapsilosis (PCR) C. tropicalis (PCR) Enterobacteriac sp PCR E. cloacae complex PCR Enterococcus sp PCR E. coli (PCR) H. influenzae (PCR) Klebsiella oxytoca PCR Klebsiella pneumoniae List. monocytogenes PCR N. meningitidis (PCR) Proteus species (PCR) Serratia marcescens PCR Staphylococcus sp PCR Staph aureus (PCR) mecA-Methicil Res Gene Streptococcus sp PCR Group A Strep DNA Group B Strep (PCR) Strep pneumoniae (PCR) P. aeruginosa (PCR) Sydney/B-Vanco Res Genes KPC (blaKPC) Detect PCR Cultures: Cultures 07/31/18 10:57 Legionella Culture - Final Left Upper Lobe Lung 07/31/18 11:00 Legionella Culture - Final Right Middle Lobe Lung 08/01/18 11:45 Blood Culture - Final Peripheral Venipuncture Methicillin Resistant S.aureus 07/31/18 05:30 Sputum Culture - Final Sputum 07/31/18 10:57 Respiratory Culture - Final Left Upper Lobe Lung 07/31/18 11:00 Respiratory Culture - Final Right Middle Lobe Lung 08/02/18 14:24 Blood Culture - Preliminary Peripheral Venipuncture Culture is incubating and being continuously monitored for growth. Final report to follow. 08/02/18 14:23 Blood Culture - Preliminary Peripheral Venipuncture Culture is incubating and being continuously monitored for growth. Final report to follow. 07/30/18 21:02 Blood Culture - Final Peripheral Venipuncture Methicillin Resistant S.aureus 07/31/18 11:00 Acid Fast Stain - Final Right Middle Lobe Lung 07/31/18 10:57 Acid Fast Stain - Final Left Upper Lobe Lung 08/01/18 11:45 Blood Culture - Preliminary Peripheral Venipuncture Culture is incubating and being continuously monitored for growth. Final report to follow. 07/30/18 21:02 Blood Culture - Preliminary Peripheral Venipuncture Gram Positive Cocci Serology 08/01/18 07/31/18 07/31/18 Range/Units 11:45 12:10 12:10 Fluid Source Fluid Volume mL Fluid Appearance (Clear) Fluid RBC Fld Tot Nucleated Cell Fluid Seg Neutrophil % % Fld Band Neutrophil % Fluid Lymphocytes % Fluid Monocytes % Fluid Eosinophils % Fluid Basophils % Fluid Other Cells % % Nasal Screen MRSA (PCR) Positive A (Negative) A. baumannii (PCR) Not Detected (Not Detect) Chlamy pneumoniae PCR Not Detected (Not Detect) Adenovirus (PCR) Not Detected (Not Detect) B. pertussis DNA (PCR) Not Detected (Not Detect) B.parapertussis DNA PCR Not Detected (Not Detect) Priyanka albicans (PCR) Not Detected (Not Detect) C. glabrata (PCR) Not Detected (Not Detect) C. krusei (PCR) Not Detected (Not Detect) C. parapsilosis (PCR) Not Detected (Not Detect) C. tropicalis (PCR) Not Detected (Not Detect) Coronavirus OC43 (PCR) Not Detected (Not Detect) Coronavirus HKU1 (PCR) Not Detected (Not Detect) Coronavirus 229E (PCR) Not Detected (Not Detect) Coronavirus NL63 (PCR) Not Detected (Not Detect) Enterobacteriac sp PCR Not Detected (Not Detect) E. cloacae complex PCR Not Detected (Not Detect) Enterococcus sp PCR Not Detected (Not Detect) E. coli (PCR) Not Detected (Not Detect) H. influenzae (PCR) Not Detected (Not Detect) Hep Bs Antigen (Nonreactive) Hep Bs Antibody mIU/mL Human Metapneumovir PCR Not Detected (Not Detect) Influenza A (H1) PCR Not Detected (Not Detect) Influ A (H1N1/09) PCR Not Detected (Not Detect) Influenza A (H3) PCR Not Detected (Not Detect) Influenza A Untype (PCR) Not Detected (Not Detect) Influenza Type B (PCR) Not Detected (Not Detect) Klebsiella oxytoca PCR Not Detected (Not Detect) Klebsiella pneumoniae Not Detected (Not Detect) List. monocytogenes PCR Not Detected (Not Detect) Mycoplasma pneumon IgG (<=0.09) U/L Mycoplasma pneumon IgM (<=0.76) U/L M.pneumoniae DNA (PCR) Not Detected (Not Detect) N. meningitidis (PCR) Not Detected (Not Detect) Parainfluenza 1 (PCR) Not Detected (Not Detect) Parainfluenza 2 (PCR) Not Detected (Not Detect) Parainfluenza 3 (PCR) Not Detected (Not Detect) Parainfluenza 4 (PCR) Not Detected (Not Detect) Proteus species (PCR) Not Detected (Not Detect) RSV (PCR) Not Detected (Not Detect) Entero/Rhino (PCR) Not Detected (Not Detect) Serratia marcescens PCR Not Detected (Not Detect) Staphylococcus sp PCR DETECTED A (Not Detect) Staph aureus (PCR) DETECTED A (Not Detect) mecA-Methicil Res Gene DETECTED A (Not Detect) Streptococcus sp PCR Not Detected (Not Detect) Group A Strep DNA Not Detected (Not Detect) Group B Strep (PCR) Not Detected (Not Detect) Strep pneumoniae (PCR) Not Detected (Not Detect) P. aeruginosa (PCR) Not Detected (Not Detect) Sydney/B-Vanco Res Genes N/A (Not Detect) KPC (blaKPC) Detect PCR N/A (Not Detect) 07/31/18 07/31/18 07/31/18 Range/Units 11:00 10:57 08:37 Fluid Source right middle lobe keegan left upper lobe lung Fluid Volume 17 16 mL Fluid Appearance Cloudy A Cloudy A (Clear) Fluid RBC TNP TNP Fld Tot Nucleated Cell TNP TNP Fluid Seg Neutrophil % 84.6 92.3 % Fld Band Neutrophil % TNP TNP Fluid Lymphocytes % TNP TNP Fluid Monocytes % TNP TNP Fluid Eosinophils % TNP TNP Fluid Basophils % TNP TNP Fluid Other Cells % 15.4 7.7 % Nasal Screen MRSA (PCR) (Negative) A. baumannii (PCR) (Not Detect) Chlamy pneumoniae PCR (Not Detect) Adenovirus (PCR) (Not Detect) B. pertussis DNA (PCR) (Not Detect) B.parapertussis DNA PCR (Not Detect) Priyanka albicans (PCR) (Not Detect) C. glabrata (PCR) (Not Detect) C. krusei (PCR) (Not Detect) C. parapsilosis (PCR) (Not Detect) C. tropicalis (PCR) (Not Detect) Coronavirus OC43 (PCR) (Not Detect) Coronavirus HKU1 (PCR) (Not Detect) Coronavirus 229E (PCR) (Not Detect) Coronavirus NL63 (PCR) (Not Detect) Enterobacteriac sp PCR (Not Detect) E. cloacae complex PCR (Not Detect) Enterococcus sp PCR (Not Detect) E. coli (PCR) (Not Detect) H. influenzae (PCR) (Not Detect) Hep Bs Antigen (Nonreactive) Hep Bs Antibody mIU/mL Human Metapneumovir PCR (Not Detect) Influenza A (H1) PCR (Not Detect) Influ A (H1N1/09) PCR (Not Detect) Influenza A (H3) PCR (Not Detect) Influenza A Untype (PCR) (Not Detect) Influenza Type B (PCR) (Not Detect) Klebsiella oxytoca PCR (Not Detect) Klebsiella pneumoniae (Not Detect) List. monocytogenes PCR (Not Detect) Mycoplasma pneumon IgG 0.04 (<=0.09) U/L Mycoplasma pneumon IgM 0.05 (<=0.76) U/L M.pneumoniae DNA (PCR) (Not Detect) N. meningitidis (PCR) (Not Detect) Parainfluenza 1 (PCR) (Not Detect) Parainfluenza 2 (PCR) (Not Detect) Parainfluenza 3 (PCR) (Not Detect) Parainfluenza 4 (PCR) (Not Detect) Proteus species (PCR) (Not Detect) RSV (PCR) (Not Detect) Entero/Rhino (PCR) (Not Detect) Serratia marcescens PCR (Not Detect) Staphylococcus sp PCR (Not Detect) Staph aureus (PCR) (Not Detect) mecA-Methicil Res Gene (Not Detect) Streptococcus sp PCR (Not Detect) Group A Strep DNA (Not Detect) Group B Strep (PCR) (Not Detect) Strep pneumoniae (PCR) (Not Detect) P. aeruginosa (PCR) (Not Detect) Sydney/B-Vanco Res Genes (Not Detect) KPC (blaKPC) Detect PCR (Not Detect) 07/30/18 07/30/18 Range/Units 21:02 17:51 Fluid Source Fluid Volume mL Fluid Appearance (Clear) Fluid RBC Fld Tot Nucleated Cell Fluid Seg Neutrophil % % Fld Band Neutrophil % Fluid Lymphocytes % Fluid Monocytes % Fluid Eosinophils % Fluid Basophils % Fluid Other Cells % % Nasal Screen MRSA (PCR) (Negative) A. baumannii (PCR) Not Detected (Not Detect) Chlamy pneumoniae PCR (Not Detect) Adenovirus (PCR) (Not Detect) B. pertussis DNA (PCR) (Not Detect) B.parapertussis DNA PCR (Not Detect) Priyanka albicans (PCR) Not Detected (Not Detect) C. glabrata (PCR) Not Detected (Not Detect) C. krusei (PCR) Not Detected (Not Detect) C. parapsilosis (PCR) Not Detected (Not Detect) C. tropicalis (PCR) Not Detected (Not Detect) Coronavirus OC43 (PCR) (Not Detect) Coronavirus HKU1 (PCR) (Not Detect) Coronavirus 229E (PCR) (Not Detect) Coronavirus NL63 (PCR) (Not Detect) Enterobacteriac sp PCR Not Detected (Not Detect) E. cloacae complex PCR Not Detected (Not Detect) Enterococcus sp PCR Not Detected (Not Detect) E. coli (PCR) Not Detected (Not Detect) H. influenzae (PCR) Not Detected (Not Detect) Hep Bs Antigen Nonreactive (Nonreactive) Hep Bs Antibody 1.25 mIU/mL Human Metapneumovir PCR (Not Detect) Influenza A (H1) PCR (Not Detect) Influ A (H1N1/09) PCR (Not Detect) Influenza A (H3) PCR (Not Detect) Influenza A Untype (PCR) (Not Detect) Influenza Type B (PCR) (Not Detect) Klebsiella oxytoca PCR Not Detected (Not Detect) Klebsiella pneumoniae Not Detected (Not Detect) List. monocytogenes PCR Not Detected (Not Detect) Mycoplasma pneumon IgG (<=0.09) U/L Mycoplasma pneumon IgM (<=0.76) U/L M.pneumoniae DNA (PCR) (Not Detect) N. meningitidis (PCR) Not Detected (Not Detect) Parainfluenza 1 (PCR) (Not Detect) Parainfluenza 2 (PCR) (Not Detect) Parainfluenza 3 (PCR) (Not Detect) Parainfluenza 4 (PCR) (Not Detect) Proteus species (PCR) Not Detected (Not Detect) RSV (PCR) (Not Detect) Entero/Rhino (PCR) (Not Detect) Serratia marcescens PCR Not Detected (Not Detect) Staphylococcus sp PCR DETECTED A (Not Detect) Staph aureus (PCR) DETECTED A (Not Detect) mecA-Methicil Res Gene DETECTED A (Not Detect) Streptococcus sp PCR Not Detected (Not Detect) Group A Strep DNA Not Detected (Not Detect) Group B Strep (PCR) Not Detected (Not Detect) Strep pneumoniae (PCR) Not Detected (Not Detect) P. aeruginosa (PCR) Not Detected (Not Detect) Sydney/B-Vanco Res Genes Not Detected (Not Detect) KPC (blaKPC) Detect PCR Not Detected (Not Detect) Exam - Constitutional Vitals: Temp Pulse Resp BP Pulse Ox 98.0 F 98 18 160/87 94 08/03/18 06:42 08/03/18 06:42 08/03/18 06:42 08/03/18 06:42 08/03/18 06:42 General appearance: average body habitus, cooperative, no acute distress - Head Head exam: Present: atraumatic, normal inspection, normocephalic - Eye Eye exam: Present: EOMI, normal appearance, PERRL Pupils: Present: normal accommodation Additional comments: No subconjunctival hemorrhage noted. - ENT ENT exam: Present: mucous membranes moist - Neck Neck exam: Present: normal inspection - Respiratory Respiratory exam: Present: wheezes (Course X3 wheezes noted to the anterior lobes throughout. Faint expiratory wheezes noted to the posterior lobes throughout.). Absent: rales, respiratory distress, rhonchi, tachypnea - Cardiovascular Cardiovascular exam: Present: RRR, +S1, +S2 - GI/Abdominal GI/Abdominal exam: Present: normal bowel sounds, soft. Absent: distended, tenderness - Extremities Exam Extremities exam: Present: normal inspection. Absent: joint swelling, pedal edema, tenderness - Back Exam Back exam: Present: normal inspection. Absent: vertebral tenderness - Neurological Exam Neurological exam: Present: alert, oriented X3, no focal deficits - Psychiatric Psychiatric exam: Present: normal affect, normal mood - Skin Skin exam: Present: dry, intact, normal color, warm Consult Discharge Plan - Plan Referrals: Vladimir Chaidez MD [Primary Care Provider] - - Attending Attestation I examined this patient and my medical decision-making was reviewed with the Resident Physician. I agree with the documented findings, disposition and treatment plan as described except to the extent set forth below.
--- NOTE | 2018-08-03 10:53 | Cardiology Progress Note ---
Date of Encounter: 08/03/18 Time of Encounter: 09:00 Assessment and Plan (1) Elevated troponin Current Visit: Yes Status: Acute Troponin elevation 0.07, 0.07, 0.09, 0.22, 1.55---now trending down at 1.29. Suspect demand ischemia in the setting of MRSA bacteremia, PNA, and respiratory failure. EKG shows atrial fibrillation with RVR HR 123. Note ST depression in the lateral leads. Repeat EKG yesterday ST changes resolved. Describes pleuritic chest pa in. TTE this admit -EF 65%, No WMA, mild LVH, mild DD, mild , mild to moderate PAH. Recommend continuing medical therapy. No further testing at this time. Consider ischemic evaluation in the future once PNA and bacteremia resolves, possibly prior to d/c. Cardiology will monitor peripherally. Once pt stable from bacteremia standpoint we will consider LHC. Re=peat BC pending. (2) Atrial fibrillation with RVR Current Visit: Yes Status: Chronic Noted pt had atrial fibrillation with RVR in the setting of sepsis. HR improved. Metoprolol increased by primary team and converted to toprol XL this am. Continue to monitor. 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 (3) Bacteremia Current Visit: Yes Status: Acute Found to have blood cultures x 2 possibly secondary to PNA. No stigmata of endocarditis. ID recommends [place] prior to D/C. (4) Acute respiratory distress Current Visit: No Status: Acute Respiratory distress in the setting of COPD, PNA, and pleural effusions. Ef ussions may be secondary to PNA and afib with RVR. TTE reveiew. EF preserved only mild DD. Mild to moderate PAH. Discussion w patient/family: The assessment and plan as outlined above was discussed with the patient and/or family members who expressed understanding and agreement. All questions were answered. Thank you for involving us in the care of your patient. Please call with any questions. Subjective Principal diagnosis: ESRD Interval history: Ms. Carmona continues to have chest discomfort with movement and cough. SHe was reported to have chest pain yesterday evening that was no releived after 4 sl NTG. Chest pain likely pleuritic. Objective Vital Signs, Last 4 Hours Temp Pulse Resp BP Pulse Ox 08/03/18 06:42 98.0 F 98 18 160/87 94 General: Conversant, No Apparent Distress HEENT: Atraumatic, Normocephaly, Mucus Membranes Moist Neck: No JVD, Normal carotid pulses Cardiac: Other (Irregularly irregular) Lungs: Normal Breath Sounds, No Wheeze, Rales, Rhonchi Neuro: Alert and responsive, No focal deficits noted Abdomen: Soft, Non-Tender Skin: No rashes noted on visualized skin Musculoskeletal: No Chest Wall Tenderness Extremities: No Clubbing, No Cyanosis, No Edema, Normal Pulses Results 08/03/18 01:30 08/03/18 01:30 Lab Results 08/02/18 08/02/18 08/02/18 04:08 15:45 19:47 WBC Hgb Hct Plt Count Sodium 134 L Potassium 4.9 Chloride 95 L Carbon Dioxide 26 BUN 73 H Creatinine 5.93 H Glucose 128 H Calcium 10.0 Magnesium 2.2 Total Bilirubin 0.5 AST 34 ALT 26 Alkaline Phosphatase 70 Troponin I 1.55 H* 1.53 H* 1.30 H* 08/03/18 08/03/18 08/03/18 01:30 01:30 01:30 WBC 8.3 Hgb 10.2 L Hct 31.2 L Plt Count 155 Sodium 136 Potassium 4.0 Chloride 97 L Carbon Dioxide 30 H BUN 32 H Creatinine 3.29 H Glucose 109 H Calcium 10.0 Magnesium Total Bilirubin AST ALT Alkaline Phosphatase Troponin I 1.29 H* - Imaging and Cardiology Echo: report reviewed - EKG Interpretation EKG results cardiology: personally reviewed Consult Discharge Plan - Plan Referrals: Vladimir Chaidez MD [Primary Care Provider] -
--- NOTE | 2018-08-03 11:19 | Internal Med Progress Note ---
Hospitalist Progress Note - Encounter Date of Encounter: 08/03/18 Time of Encounter: 09:00 - Subjective Interval History: Pt feels better, still mild SOB. No fever. Encourage pt out of bed, will consult Pt/OT for evaluation. - Exam Vitals: Temp Pulse Resp BP Pulse Ox 97.5 F L 100 18 140/95 97 08/03/18 10:47 08/03/18 10:47 08/03/18 10:47 08/03/18 10:47 08/03/18 10:47 Exam: AAO x 3, in NAD HEENT: NC/AT, PERRL Neck: Supple, no JVD Lungs: CTA b/l, scattered rhonchi on the right side Heart: S1S2, irregularly irregular, tachycardia Abd: Soft, NT, BS normal Ext: No pedal edema Neuro: No focal deficit. - Assessment and Plan (1) Acute respiratory distress Current Visit: No Status: Acute Assessment and Plan: Most likely 2/2 volume over load/PNA. Improved now after HD and abx use. (2) ESRD on dialysis Current Visit: Yes Status: Chronic Assessment and Plan: Nephro on case, cont HD (3) COPD (chronic obstructive pulmonary disease) Current Visit: Yes Status: Chronic Assessment and Plan: No wheezing, will taper down steroid. Cont home meds. Cont nebulizer. (4) HTN (hypertension) Current Visit: No Status: Chronic Assessment and Plan: Cont home meds. Closely monitor BP. (5) Hyperkalemia Current Visit: Yes Status: Resolved Assessment and Plan: Improved after HD. (6) Volume overload Current Visit: Yes Status: Acute Assessment and Plan: Improved after HD. (7) Bacteremia Current Visit: Yes Status: Acute Assessment and Plan: Blood culture positive for MRSA. Possibly from HCAP. - ID consult appreciated - Cont Vanco - May needs [place] upon discharge. (8) Elevated troponin Current Visit: Yes Status: Acute Assessment and Plan: Pt has mildly elevated troponin on admission but not see the peak of troponin. Followed troponin still high. Most likely due to sepsis/bacteremia/HCAP. Pt de nies chest pain. - Appreciated cardio input - Cont ASA and BB - Further ischemic test per cardio (9) Atrial fibrillation with RVR Current Visit: Yes Status: Chronic Assessment and Plan: Pt has Hx of PAF. HR is better controlled after resume home meds metoprolol. On metoprolol XL 50mg po qd. Previous cardio consult note reviewed, not on AC b/o fall risk and hx of GI bleed. On ASA. (10) HCAP (healthcare-associated pneumonia) Current Visit: No Status: Acute Assessment and Plan: Cont vanco and levaquin so far. ID on case. DVT Prophylaxis: Heparin SC - Time Spent with Patient Total time spent is greater than 50% in coordination of care (as documented) at patient's floor/unit and/or counseling patient: 40 min Greater than 35 minutes Plan of Care Discussed with: patient Internal Medicine: Result - Labs CBC & Chem 7: 08/03/18 01:30 08/03/18 01:30 Labs: Short CBC 08/03/18 Range/Units 01:30 WBC 8.3 (4.3-11.1) K/mcL Hgb 10.2 L (11.5-15.4) g/dL Hct 31.2 L (35.3-44.9) % Plt Count 155 (140-400) K/mcL Neutrophils # 7.3 (1.6-8.9) K/mcL BMP 08/03/18 01:30 Sodium 136 Potassium 4.0 Chloride 97 L Carbon Dioxide 30 H BUN 32 H Creatinine 3.29 H Glucose 109 H Calcium 10.0 Cardiac Enzymes 08/02/18 08/02/18 08/03/18 Range/Units 15:45 19:47 01:30 Troponin I 1.53 H* 1.30 H* 1.29 H* (< 0.04) ng/mL - ABG Interpretation ABG results: ABG ABG pH 7.24 pH Units (7.32-7.45) L 07/31/18 06:17 ABG pCO2 57 mmHg (35-45) H 07/31/18 06:17 ABG pO2 85 mmHg (85-104) 07/31/18 06:17 ABG O2 Saturation 94 % (95-98) L 07/31/18 06:17 PT/INR, D-dimer PT 10.0 Seconds (9.4-12.1) 07/30/18 21:02 Consult Discharge Plan - Plan Referrals: Vladimir Chaidez MD [Primary Care Provider] - (3) COPD (chronic obstructive pulmonary disease) Qualifiers: COPD type: COPD with acute exacerbation Qualified Code(s): J44.1 - Chronic obstructive pulmonary disease with (acute) exacerbation (4) HTN (hypertension) Qualifiers: Hypertension type: essential hypertension Qualified Code(s): I10 - Essential (primary) hypertension (6) Volume overload Qualifiers: Hypervolemia type: unspecified Qualified Code(s): E87.70 - Fluid overload, unspecified
--- NOTE | 2018-08-03 13:15 | Electrocardiograph Report ---
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
--- NOTE | 2018-08-03 14:09 | Event Note ---
Date of Encounter: 08/03/18 Time of Encounter: 14:00 - Cardiology Event Note Per discussion with Dr. Amezcua, can consider possible LHC if clinically appropriate prior to DC to home. Cardiology will s/o, re-consult if/when needed. F/u arranged.
--- NOTE | 2018-08-03 14:51 | Electrocardiograph Report ---
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
[2018-08-03] MEDS ORDERED: Levofloxacin 500 MG/100 ML 500 MG/100 ML BAG IVPB SCH (16:00)
[2018-08-03] MEDS: Furosemide 20 MG TABLET PO SCH (16:50)
[2018-08-03 20:20] LABS: ABG Base Excess 3 mEq/L (-2 to 3); ABG HCO3 26 mEq/L (21-27); ABG Oxygen Saturation 95 % (95-98); ABG PCO2 31 mmHg (35-45); ABG PH 7.52 pH Units (7.32-7.45); ABG PO2 65 mmHg (85-104); ABG TCO2 27 mEq/L (20-26)
[2018-08-03] MEDS: Piperacillin/Tazobactam 3.375 GM in 0.9 % Sodium Chloride Mini Bag 100 ML IVPB SCH (21:18)
[2018-08-03] MEDS ORDERED: *HR* LORazepam 2 MG/ML VIAL IVP ONE (23:57)
[2018-08-04] MEDS ORDERED: *HR* Labetalol 20 MG/4 ML SYRINGE IVP ONE (00:02)
[2018-08-04] MEDS: Ipratropium/Albuterol Neb 3 ML IH SCH ×4 (04:45→23:04)
[2018-08-04 05:34] LABS: Basophils % 0.1 %; Hematocrit 33.3 % (35.3-44.9); Hemoglobin 10.5 g/dL (11.5-15.4); Immature Granulocytes % 0.9 % (0-4); Lymphocytes # 0.5 K/mcL (0.6-4.6); Lymphocytes % 5.9 %; Mean Corpuscular HGB Conc 31.5 g/dL (31.6-35.5); Mean Corpuscular Hemoglobin 30.7 pg (28.0-33.3); Mean Corpuscular Volume 97.4 fL (83.0-100.0); Mean Platelet Volume 10.5 fL (9.4-12.4); Monocytes # 0.6 K/mcL (0.0-1.3); Monocytes % 7.5 %; Neutrophils # 6.6 K/mcL (1.6-8.9); Platelet Count 140 K/mcL (140-400); Red Blood Count 3.42 M/mcL (3.82-4.97); Red Cell Distribution Width 14.2 % (11.5-14.5); Segmented Neutrophils % 85.6 %
[2018-08-04 05:44] LABS: Calcium 10.5 mg/dL (8.6-10.3); Potassium 4.2 mEq/L (3.5-5.1)
[2018-08-04] MEDS: *HR* Heparin 5,000 UNIT/ML VIAL SQ SCH ×2 (06:30→16:58)
[2018-08-04] MEDS ORDERED: 0.9 % Sodium Chloride 250 ML IVC PRN (07:08)
[2018-08-04] MEDS: Nitroglycerin 0.4 MG TAB.SUBL SL PRN (07:50)
[2018-08-04] MEDS ORDERED: *HR* FentaNYL (PF) 100 MCG/2 ML VIAL IVP ONE (08:05)
[2018-08-04] MEDS ORDERED: *HR* FentaNYL (PF) 100 MCG/2 ML VIAL ONE (08:06)
[2018-08-04] MEDS ORDERED: 0.9 % Sodium Chloride 1,000 ML ONE (08:10)
[2018-08-04] MEDS ORDERED: *HR* Metoprolol 5 MG/5 ML VIAL IVP ONE ×2 (08:12→08:16)
[2018-08-04] MEDS: Lactobacillus 1 EACH CAP.SPRINK PO SCH (08:28)
[2018-08-04] MEDS: Aspirin 81 MG TAB.CHEW PO SCH ×2 (08:28→18:50)
[2018-08-04] MEDS: Renal Vitamin 1 CAP CAPSULE PO SCH ×2 (08:29→18:50)
[2018-08-04] MEDS: hydrALAZINE 25 MG TABLET PO SCH ×3 (08:29→20:09)
[2018-08-04] MEDS: Furosemide 40 MG TABLET PO SCH (08:29)
[2018-08-04] MEDS: Metoprolol XL (24 HR) Succ 50 MG TAB.ER.24H PO SCH ×2 (08:29→18:49)
[2018-08-04] MEDS: predniSONE 20 MG TABLET PO SCH ×2 (08:29→18:50)
[2018-08-04 08:42] LABS: ABG Base Excess 4 mEq/L (-2 to 3); ABG HCO3 29 mEq/L (21-27); ABG Oxygen Saturation 94 % (95-98); ABG PCO2 45 mmHg (35-45); ABG PH 7.42 pH Units (7.32-7.45); ABG PO2 70 mmHg (85-104); ABG TCO2 31 mEq/L (20-26); Blood Gas Modality BiLevel; Blood Gas PEEP 6 cm H2O; Blood Gas Pressure Support 16 cm H2O
[2018-08-04] MEDS: Piperacillin/Tazobactam 3.375 GM in 0.9 % Sodium Chloride Mini Bag 100 ML IVPB SCH ×2 (08:42→16:48)
[2018-08-04] MEDS ORDERED: predniSONE 20 MG TABLET PO SCH (09:00)
--- NOTE | 2018-08-04 09:11 | Pulmonology Progress Note ---
<Jarod Quintana S - Last Filed: 08/04/18 09:54> Objective PUL Vital signs: Last Vital Signs Temp 99.1 F 08/04/18 07:07 Pulse 114 08/04/18 07:07 Resp 21 08/04/18 07:07 BP 178/100 08/04/18 07:07 Pulse Ox 100 08/04/18 07:07 Results - Laboratory Findings CBC and BMP: 08/04/18 05:05 08/04/18 05:05 ABG ABG pH 7.42 pH Units (7.32-7.45) 08/04/18 08:38 ABG pCO2 45 mmHg (35-45) 08/04/18 08:38 ABG pO2 70 mmHg (85-104) L 08/04/18 08:38 ABG O2 Saturation 94 % (95-98) L 08/04/18 08:38 PT/INR, D-dimer PT 10.0 Seconds (9.4-12.1) 07/30/18 21:02 Abnormal lab findings: Abnormal lab results RBC 3.42 M/mcL (3.82-4.97) L 08/04/18 05:05 Hgb 10.5 g/dL (11.5-15.4) L 08/04/18 05:05 Hct 33.3 % (35.3-44.9) L 08/04/18 05:05 MCHC 31.5 g/dL (31.6-35.5) L 08/04/18 05:05 Lymphocytes # 0.5 K/mcL (0.6-4.6) L 08/04/18 05:05 ABG pO2 70 mmHg (85-104) L 08/04/18 08:38 ABG HCO3 29 mEq/L (21-27) H 08/04/18 08:38 ABG Total CO2 31 mEq/L (20-26) H 08/04/18 08:38 ABG O2 Saturation 94 % (95-98) L 08/04/18 08:38 ABG Base Excess 4 mEq/L (-2 to 3) H 08/04/18 08:38 Chloride 96 mEq/L (98-107) L 08/04/18 05:05 BUN 58 mg/dL (8-23) H 08/04/18 05:05 Creatinine 5.41 mg/dL (0.60-1.20) H 08/04/18 05:05 Est GFR ( Amer) 9 (> 60) L 08/04/18 05:05 Est GFR (Non-Af Amer) 8 (> 60) L 08/04/18 05:05 POC Glucose 114 mg/dL (70-99) H 08/02/18 06:10 Calcium 10.5 mg/dL (8.6-10.3) H 08/04/18 05:05 Phosphorus 8.3 mg/dL (2.7-4.5) H 08/02/18 04:08 Troponin I 1.08 ng/mL (< 0.04) H* 08/04/18 08:11 Serum Total Protein 5.4 g/dL (6.4-8.9) L 08/02/18 04:08 Albumin 3.2 g/dL (3.5-5.7) L 08/02/18 04:08 Globulin 2.2 g/dL (2.4-3.5) L 08/02/18 04:08 Fluid Appearance Cloudy (Clear) A 07/31/18 11:00 Nasal Screen MRSA (PCR) Positive (Negative) A 07/31/18 12:10 Staphylococcus sp PCR DETECTED (Not Detect) A 08/01/18 11:45 Staph aureus (PCR) DETECTED (Not Detect) A 08/01/18 11:45 mecA-Methicil Res Gene DETECTED (Not Detect) A 08/01/18 11:45 - Microbiology Findings Microbiology Findings: Microbiology, Last 48 Hours 07/31/18 10:57 Legionella Culture - Final Left Upper Lobe Lung 07/31/18 11:00 Legionella Culture - Final Right Middle Lobe Lung 08/01/18 11:45 Blood Culture - Final Peripheral Venipuncture Methicillin Resistant S.aureus 07/31/18 05:30 Sputum Culture - Final Sputum 07/31/18 10:57 Respiratory Culture - Final Left Upper Lobe Lung 07/31/18 11:00 Respiratory Culture - Final Right Middle Lobe Lung 08/02/18 14:24 Blood Culture - Preliminary Peripheral Venipuncture Culture is incubating and being continuously monitored for growth. Final report to follow. 08/02/18 14:23 Blood Culture - Preliminary Peripheral Venipuncture Culture is incubating and being continuously monitored for growth. Final report to follow. 07/30/18 21:02 Blood Culture - Final Peripheral Venipuncture Methicillin Resistant S.aureus - Clinical Findings Intake & Output: Intake & Output 08/03/18 08/04/18 08/04/18 23:59 07:59 15:59 Intake Total 240 / 240 200 / 200 Balance 240 / 240 200 / 200 Weight 64.1 kg Consult Discharge Plan - Plan Referrals: Vladimir Chaidez MD [Primary Care Provider] - - Attending Attestation - Attending Attestation I saw and evaluated this patient and my medical decision-making was reviewed with the Resident Physician. I agree with the documented findings, disposition and treatment plan as described except to the extent set forth below. We independently had [id number] contact with the patient Patient seen and examined at bedside Labs, radiology, chart personally reviewed. Management was reviewed during multidisciplinary critical care rounds. GUIDE DOG TRAINER: Patient is awake in respiratory distress complaining of chest pain Pulm: Patient had increased blood pressure with atrial fibrillation/atrial flut ter with RVR causing her diastolic dysfunction to be worse most likely worsening hydrostatic pulmonary edema today is her dialysis day we will see how she turns around after bringing her blood pressure or heart rate down and during dialysis if the VQ mismatch is still persistent despite dialysis will get a CTA to make sure she does not have a pulmonary embolism. The latest chest x-ray noted evid ence of recurrent left upper lobe collapse and right middle lobe collapse which was the presentation when she came to the hospital few days ago. Currently she does not need bronchoscopy. Cards: Congestive heart failure patient has end-stage renal disease gets dialysis as part of her fluid management. Patient had NSTEMI during this hospital stay cardiology thinking a cardiac catheterization and she is more stable FEN-GI: Nutrition per dietary. Renal: Labs and output reviewed ID: Antibiotics according to infectious disease. Patient has this MRSA bacteremia last pending cultures 24 still negative. Heme/Onc:Thromboprophylaxis Endo: Glucose Monitored Integ/MSK: Skin Care per routine ICU Nursing Protocol to prevent ulcers. Lines: All lines examined without evidence of infection : Dispo: Patient patient was transferred from today to ICU today. CODE:Full Code <Denice Strauss - Last Filed: 08/04/18 16:37> Date of Encounter: 08/04/18 Time of Encounter: 09:09 Assessment and Plan (1) Acute and chronic respiratory failure with hypoxia Current Visit: Yes Status: Acute Returned to ICU due to increased WOB and chest pain. CXR showed increased interstitial pattern with B/L pleural effusions. Echo showed LVEF 65% with normal wall motion on 07/31 Bronchoscopy 07/31/2018 - awaiting BAL cultures Vancomycin, zosyn, and levaquin day 5 Respiratory infectious panel and Mycoplasma antigen screen negative MRSA nasal swab positive Blood culture positive for MRSA Legionella and Strep pneumo were considered but pt is anuric so these labs are unable to be done Continue abx as above - awaiting BAL culture results De-escalate steroids to Prednisone 40mg po daily Palliative Care consulted for goals of tx Consider PE study, [place] for endocarditis, flu swab if work of breathing does not improve with dialysis, BP control, HR control and BiPAP (2) Atrial fibrillation with RVR Current Visit: Yes Status: Chronic On 50mg Toprol XL at home Pt tachycardia at 114 with elevated BP 178/100 Toprol 100mg Started Cardizem drip to decrease HR and BP (3) ESRD on dialysis Current Visit: Yes Status: Chronic Nephrology on board Dialysis MWF - dialysis today Per nephro - resume MWF dialysis schedule at this time (4) Acute exacerbation of chronic obstructive pulmonary disease (COPD) Current Visit: Yes Status: Acute Mucus plugging vs pneumonia Plan as #1 above (5) Positive blood culture Current Visit: Yes Status: Acute Gm+ cocci detected in BC obtained at 21:00 on 07/30/18 - MRSA positive Bronchoscopy and sputum cultures pending Continue Vanc, zosyn and levaquin. Due to increased work and CP, transferred back to ICU Await BAL culture for possible PNA (6) Elevated troponin Current Visit: Yes Status: Acute 1.55 on 08/02 --> 1.29 on 08/03 --> 0800 1.08 --> repeat at 1400 Repeat EKG pending (7) Hyperkalemia Current Visit: Yes Status: Resolved Was elevated at 6.5 on admission Improves after HD Has dialysis today Continue to monitor (8) DVT prophylaxis Current Visit: Yes Status: Acute SQ Heparin Subjective Principal diagnosis: ESRD Interval history: Pt was transferred back to the ICU due to increased work of breathing, chest pain, and elevated BP. She will receive dialysis today. She is tolerating BiPAP. Objective PUL Vital signs: Last Vital Signs Temp 99.1 F 08/04/18 07:07 Pulse 114 08/04/18 07:07 Resp 21 08/04/18 07:07 BP 178/100 08/04/18 07:07 Pulse Ox 100 08/04/18 07:07 General appearance: asleep Eyes: nonicteric ENT: oropharynx dry Effort: mildly labored Auscultation: left: clear, right: wheezes (right upper lung area) Cardiovascular: irregular rhythm, other (tachycardic) Gastrointestinal: normoactive bowel sounds, soft, non-tender, non-distended Integumentary: normal Extremities: no cyanosis, no edema, pulses normal Musculoskeletal: no deformities Results - Laboratory Findings CBC and BMP: 08/04/18 05:05 08/04/18 05:05 ABG ABG pH 7.42 pH Units (7.32-7.45) 08/04/18 08:38 ABG pCO2 45 mmHg (35-45) 08/04/18 08:38 ABG pO2 70 mmHg (85-104) L 08/04/18 08:38 ABG O2 Saturation 94 % (95-98) L 08/04/18 08:38 PT/INR, D-dimer PT 10.0 Seconds (9.4-12.1) 07/30/18 21:02 Abnormal lab findings: Abnormal lab results RBC 3.42 M/mcL (3.82-4.97) L 08/04/18 05:05 Hgb 10.5 g/dL (11.5-15.4) L 08/04/18 05:05 Hct 33.3 % (35.3-44.9) L 08/04/18 05:05 MCHC 31.5 g/dL (31.6-35.5) L 08/04/18 05:05 Lymphocytes # 0.5 K/mcL (0.6-4.6) L 08/04/18 05:05 ABG pO2 70 mmHg (85-104) L 08/04/18 08:38 ABG HCO3 29 mEq/L (21-27) H 08/04/18 08:38 ABG Total CO2 31 mEq/L (20-26) H 08/04/18 08:38 ABG O2 Saturation 94 % (95-98) L 08/04/18 08:38 ABG Base Excess 4 mEq/L (-2 to 3) H 08/04/18 08:38 Chloride 96 mEq/L (98-107) L 08/04/18 05:05 BUN 58 mg/dL (8-23) H 08/04/18 05:05 Creatinine 5.41 mg/dL (0.60-1.20) H 08/04/18 05:05 Est GFR ( Amer) 9 (> 60) L 08/04/18 05:05 Est GFR (Non-Af Amer) 8 (> 60) L 08/04/18 05:05 POC Glucose 114 mg/dL (70-99) H 08/02/18 06:10 Calcium 10.5 mg/dL (8.6-10.3) H 08/04/18 05:05 Phosphorus 8.3 mg/dL (2.7-4.5) H 08/02/18 04:08 Troponin I 1.08 ng/mL (< 0.04) H* 08/04/18 08:11 Serum Total Protein 5.4 g/dL (6.4-8.9) L 08/02/18 04:08 Albumin 3.2 g/dL (3.5-5.7) L 08/02/18 04:08 Globulin 2.2 g/dL (2.4-3.5) L 08/02/18 04:08 Fluid Appearance Cloudy (Clear) A 07/31/18 11:00 Nasal Screen MRSA (PCR) Positive (Negative) A 07/31/18 12:10 Staphylococcus sp PCR DETECTED (Not Detect) A 08/01/18 11:45 Staph aureus (PCR) DETECTED (Not Detect) A 08/01/18 11:45 mecA-Methicil Res Gene DETECTED (Not Detect) A 08/01/18 11:45 - Microbiology Findings Microbiology Findings: Microbiology, Last 48 Hours 07/31/18 10:57 Legionella Culture - Final Left Upper Lobe Lung 07/31/18 11:00 Legionella Culture - Final Right Middle Lobe Lung 08/01/18 11:45 Blood Culture - Final Peripheral Venipuncture Methicillin Resistant S.aureus 07/31/18 05:30 Sputum Culture - Final Sputum 07/31/18 10:57 Respiratory Culture - Final Left Upper Lobe Lung 07/31/18 11:00 Respiratory Culture - Final Right Middle Lobe Lung 08/02/18 14:24 Blood Culture - Preliminary Peripheral Venipuncture Culture is incubating and being continuously monitored for growth. Final report to follow. 08/02/18 14:23 Blood Culture - Preliminary Peripheral Venipuncture Culture is incubating and being continuously monitored for growth. Final report to follow. 07/30/18 21:02 Blood Culture - Final Peripheral Venipuncture Methicillin Resistant S.aureus - Clinical Findings Intake & Output: Intake & Output 08/03/18 08/04/18 08/04/18 23:59 07:59 15:59 Intake Total 240 / 240 200 / 200 Balance 240 / 240 200 / 200 Weight 64.1 kg
[2018-08-04] MEDS ORDERED: Dexmedetomidine HCl 400 MCG/100 ML MLS IVC ONE ×2 (09:35→16:00)
--- NOTE | 2018-08-04 09:55 | Infectious Disease Progress No ---
Date of Encounter: 08/04/18 Time of Encounter: 09:53 - Assessment and Plan (1) Sepsis Current Visit: Yes Status: Acute The patient had two sepsis criteria on admission. Likely secondary to MRSA bacteremia and pneumonia. Improved. WBC normalized. Tachycardia persists, but is improving. Afebrile x 72 hours. Peripheral blood cultures drawn 07/30/18 are positive 2/2 sets for MRSA. Repeat blood cultures drawn 08/01/18 are positive 1/2 sets. Repeat blood cultures drawn 08/02/18 are NGTD x 2 sets. Qualifiers: Sepsis type: methicillin resistant Staphylococcus aureus Qualified Code(s): A41.02 - Sepsis due to Methicillin resistant Staphylococcus aureus (2) Bacteremia Current Visit: Yes Status: Acute Causative organism: MRSA. Source: Unclear, but possibly PNA although her BAL cultures are negative vs. AV fistula although no clinical evidence of cellulitis. Peripheral blood cultures drawn 07/30/18 are positive 2/2 sets for MRSA. Repeat blood cultures drawn 08/01/18 are positive 1/2 sets. Repeat blood cultures drawn 08/02/18 are NGTD x 2 sets. Complicated due to the lack of identified source. No hardware/pacemaker or evide nce of metastatic infection. 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 No endocarditis stigmata noted on exam. TTE was suboptimal due to poor windows, but negative for vegetations. She will likely need a [place] prior to discharge. Await repeat blood cultures. Check rhuematoid factor.--> <10. Continue Vancomycin IV. Pharmacy to dose. Goal trough ~15. Duration of treatment depends on the clinical picture. Monitor labs for drug toxicity and dose-adjust antibiotics. (3) HCAP (healthcare-associated pneumonia) Current Visit: No Status: Acute Location: LUP, RML, RLL per bronchoscopy. Causative organism: Unclear. The patient has had multiple bronchoscopies in the past with previous cultures positive for Aspergillus fumigatus (05/03/18), Stenotrophomonas maltophilia (03/28/18), MRSA (02/17/18), and Serratia marcescens (11/25/17). CXR and CT chest findings noted and reviewed. Status post bronchoscopy 07/31/18 that showed mucupurulent secretions and mucous plugging. BAL cultures are no growth. Pathology/cytology pending. RIP negative. Strep pneumo and Legionella UATs were not collected since the patient is anuric secondary to ESRD. Repeat CXR 08/03/18 showed mild hazy bibasilar opacities consistent with pleural effusion and partial atelectasis. Continue Vancomycin IV. Pharmacy to dose. Goal trough ~15. Continue Levaquin 500mg IV Q48H since it will cover previous organisms found on BAL. (day 6) Discontinue Zosyn. Duration of treatment depends on the clinical picture. Monitor labs and for drug toxicity and dose-adjust antibiotics. (4) Acute exacerbation of chronic obstructive airways disease Current Visit: No Status: Acute Likely contributing to the patient's acute respiratory failure. Supportive care per the primary and pulmonology teams. (5) Acute and chronic respiratory failure with hypoxia Current Visit: Yes Status: Acute Likely multifactorial: pneumonia + COPD exacerbation + fluid volume overload. Intubated 07/30/18. Extubated 07/31/18. Respiratory status declined overnight. Currently on BIPAP. Further management per the pulmonary team. (6) Elevated troponin Current Visit: Yes Status: Acute Etiology unclear. Cadiology consulted. Further workup and management per the primary team. (7) Pulmonary edema Current Visit: No Status: Acute Qualifiers: Chronicity: acute Qualified Code(s): J81.0 - Acute pulmonary edema (8) COPD (chronic obstructive pulmonary disease) Current Visit: Yes Status: Chronic Qualifiers: COPD type: COPD with acute exacerbation Qualified Code(s): J44.1 - Chronic obstructive pulmonary disease with (acute) exacerbation (9) HTN (hypertension) Current Visit: No Status: Chronic Qualifiers: Hypertension type: essential hypertension Qualified Code(s): I10 - Essential (primary) hypertension (10) ESRD on dialysis Current Visit: Yes Status: Chronic Nephrology consulted and following. 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 - Subjective Interval history: Patient seen and examined. Apparently, patient became hypoxic overnight and required BIPAP. She became hypertensive and tachycardic and has been transferred back to the ICU. ROS limited due to patient being on the BIPAP. Mild respiratory distress noted. Infect Dis PN-Objective Data - Labs CBC & Chem 7: 08/04/18 05:05 08/04/18 05:05 Labs: Laboratory Results - last 24 hr 10/08/04/18 08/04/18 20:16 05:05 05:05 WBC 7.8 RBC 3.42 L Hgb 10.5 L Hct 33.3 L MCV 97.4 MCH 30.7 MCHC 31.5 L RDW 14.2 Plt Count 140 MPV 10.5 Immature Gran % 0.9 Seg Neutrophils % 85.6 Lymphocytes % 5.9 Monocytes % 7.5 Eosinophils % 0.0 Basophils % 0.1 Neutrophils # 6.6 Lymphocytes # 0.5 L Monocytes # 0.6 Eosinophils # 0.0 Basophils # 0.0 Sample Site R Radial ABG pH 7.52 H ABG pCO2 31 L ABG pO2 65 L ABG HCO3 26 ABG Total CO2 27 H ABG O2 Saturation 95 ABG Base Excess 3 Ge Test N/A O2 Delivery Device Cannula Blood Gas Modality Inspired O2 3.0 PEEP Pressure Support Sodium Potassium Chloride Carbon Dioxide BUN Creatinine Est GFR ( Amer) Est GFR (Non-Af Amer) BUN/Creatinine Ratio Glucose Calculated Osmolality Calcium Troponin I Random Vancomycin 14 08/04/18 08/04/18 08/04/18 05:05 08:11 08:38 WBC RBC Hgb Hct MCV MCH MCHC RDW Plt Count MPV Immature Gran % Seg Neutrophils % Lymphocytes % Monocytes % Eosinophils % Basophils % Neutrophils # Lymphocytes # Monocytes # Eosinophils # Basophils # Sample Site ABG pH 7.42 ABG pCO2 45 ABG pO2 70 L ABG HCO3 29 H ABG Total CO2 31 H ABG O2 Saturation 94 L ABG Base Excess 4 H Ge Test O2 Delivery Device BiPAP Blood Gas Modality BiLevel Inspired O2 70.0 PEEP 6 Pressure Support 16 Sodium 137 Potassium 4.2 Chloride 96 L Carbon Dioxide 28 BUN 58 H Creatinine 5.41 H Est GFR ( Amer) 9 L Est GFR (Non-Af Amer) 8 L BUN/Creatinine Ratio 11 Glucose 90 Calculated Osmolality 300 Calcium 10.5 H Troponin I 1.08 H* Random Vancomycin Cultures: Cultures 07/31/18 10:57 Legionella Culture - Final Left Upper Lobe Lung 07/31/18 11:00 Legionella Culture - Final Right Middle Lobe Lung 08/01/18 11:45 Blood Culture - Final Peripheral Venipuncture Methicillin Resistant S.aureus 07/31/18 05:30 Sputum Culture - Final Sputum 07/31/18 10:57 Respiratory Culture - Final Left Upper Lobe Lung 07/31/18 11:00 Respiratory Culture - Final Right Middle Lobe Lung 08/02/18 14:24 Blood Culture - Preliminary Peripheral Venipuncture Culture is incubating and being continuously monitored for growth. Final report to follow. 08/02/18 14:23 Blood Culture - Preliminary Peripheral Venipuncture Culture is incubating and being continuously monitored for growth. Final report to follow. 07/30/18 21:02 Blood Culture - Final Peripheral Venipuncture Methicillin Resistant S.aureus 07/31/18 11:00 Acid Fast Stain - Final Right Middle Lobe Lung 07/31/18 10:57 Acid Fast Stain - Final Left Upper Lobe Lung 08/01/18 11:45 Blood Culture - Preliminary Peripheral Venipuncture Culture is incubating and being continuously monitored for growth. Final report to follow. 07/30/18 21:02 Blood Culture - Preliminary Peripheral Venipuncture Gram Positive Cocci Serology 08/01/18 07/31/18 07/31/18 Range/Units 11:45 12:10 12:10 Fluid Source Fluid Volume mL Fluid Appearance (Clear) Fluid RBC Fld Tot Nucleated Cell Fluid Seg Neutrophil % % Fld Band Neutrophil % Fluid Lymphocytes % Fluid Monocytes % Fluid Eosinophils % Fluid Basophils % Fluid Other Cells % % Nasal Screen MRSA (PCR) Positive A (Negative) A. baumannii (PCR) Not Detected (Not Detect) Chlamy pneumoniae PCR Not Detected (Not Detect) Adenovirus (PCR) Not Detected (Not Detect) B. pertussis DNA (PCR) Not Detected (Not Detect) B.parapertussis DNA PCR Not Detected (Not Detect) Priynaka albicans (PCR) Not Detected (Not Detect) C. glabrata (PCR) Not Detected (Not Detect) C. krusei (PCR) Not Detected (Not Detect) C. parapsilosis (PCR) Not Detected (Not Detect) C. tropicalis (PCR) Not Detected (Not Detect) Coronavirus OC43 (PCR) Not Detected (Not Detect) Coronavirus HKU1 (PCR) Not Detected (Not Detect) Coronavirus 229E (PCR) Not Detected (Not Detect) Coronavirus NL63 (PCR) Not Detected (Not Detect) Enterobacteriac sp PCR Not Detected (Not Detect) E. cloacae complex PCR Not Detected (Not Detect) Enterococcus sp PCR Not Detected (Not Detect) E. coli (PCR) Not Detected (Not Detect) H. influenzae (PCR) Not Detected (Not Detect) Hep Bs Antigen (Nonreactive) Hep Bs Antibody mIU/mL Human Metapneumovir PCR Not Detected (Not Detect) Influenza A (H1) PCR Not Detected (Not Detect) Influ A (H1N1/09) PCR Not Detected (Not Detect) Influenza A (H3) PCR Not Detected (Not Detect) Influenza A Untype (PCR) Not Detected (Not Detect) Influenza Type B (PCR) Not Detected (Not Detect) Klebsiella oxytoca PCR Not Detected (Not Detect) Klebsiella pneumoniae Not Detected (Not Detect) List. monocytogenes PCR Not Detected (Not Detect) Mycoplasma pneumon IgG (<=0.09) U/L Mycoplasma pneumon IgM (<=0.76) U/L M.pneumoniae DNA (PCR) Not Detected (Not Detect) N. meningitidis (PCR) Not Detected (Not Detect) Parainfluenza 1 (PCR) Not Detected (Not Detect) Parainfluenza 2 (PCR) Not Detected (Not Detect) Parainfluenza 3 (PCR) Not Detected (Not Detect) Parainfluenza 4 (PCR) Not Detected (Not Detect) Proteus species (PCR) Not Detected (Not Detect) RSV (PCR) Not Detected (Not Detect) Entero/Rhino (PCR) Not Detected (Not Detect) Serratia marcescens PCR Not Detected (Not Detect) Staphylococcus sp PCR DETECTED A (Not Detect) Staph aureus (PCR) DETECTED A (Not Detect) mecA-Methicil Res Gene DETECTED A (Not Detect) Streptococcus sp PCR Not Detected (Not Detect) Group A Strep DNA Not Detected (Not Detect) Group B Strep (PCR) Not Detected (Not Detect) Strep pneumoniae (PCR) Not Detected (Not Detect) P. aeruginosa (PCR) Not Detected (Not Detect) Sydney/B-Vanco Res Genes N/A (Not Detect) KPC (blaKPC) Detect PCR N/A (Not Detect) 07/31/18 07/31/18 07/31/18 Range/Units 11:00 10:57 08:37 Fluid Source right middle lobe keegan left upper lobe lung Fluid Volume 17 16 mL Fluid Appearance Cloudy A Cloudy A (Clear) Fluid RBC TNP TNP Fld Tot Nucleated Cell TNP TNP Fluid Seg Neutrophil % 84.6 92.3 % Fld Band Neutrophil % TNP TNP Fluid Lymphocytes % TNP TNP Fluid Monocytes % TNP TNP Fluid Eosinophils % TNP TNP Fluid Basophils % TNP TNP Fluid Other Cells % 15.4 7.7 % Nasal Screen MRSA (PCR) (Negative) A. baumannii (PCR) (Not Detect) Chlamy pneumoniae PCR (Not Detect) Adenovirus (PCR) (Not Detect) B. pertussis DNA (PCR) (Not Detect) B.parapertussis DNA PCR (Not Detect) Priyanka albicans (PCR) (Not Detect) C. glabrata (PCR) (Not Detect) C. krusei (PCR) (Not Detect) C. parapsilosis (PCR) (Not Detect) C. tropicalis (PCR) (Not Detect) Coronavirus OC43 (PCR) (Not Detect) Coronavirus HKU1 (PCR) (Not Detect) Coronavirus 229E (PCR) (Not Detect) Coronavirus NL63 (PCR) (Not Detect) Enterobacteriac sp PCR (Not Detect) E. cloacae complex PCR (Not Detect) Enterococcus sp PCR (Not Detect) E. coli (PCR) (Not Detect) H. influenzae (PCR) (Not Detect) Hep Bs Antigen (Nonreactive) Hep Bs Antibody mIU/mL Human Metapneumovir PCR (Not Detect) Influenza A (H1) PCR (Not Detect) Influ A (H1N1/09) PCR (Not Detect) Influenza A (H3) PCR (Not Detect) Influenza A Untype (PCR) (Not Detect) Influenza Type B (PCR) (Not Detect) Klebsiella oxytoca PCR (Not Detect) Klebsiella pneumoniae (Not Detect) List. monocytogenes PCR (Not Detect) Mycoplasma pneumon IgG 0.04 (<=0.09) U/L Mycoplasma pneumon IgM 0.05 (<=0.76) U/L M.pneumoniae DNA (PCR) (Not Detect) N. meningitidis (PCR) (Not Detect) Parainfluenza 1 (PCR) (Not Detect) Parainfluenza 2 (PCR) (Not Detect) Parainfluenza 3 (PCR) (Not Detect) Parainfluenza 4 (PCR) (Not Detect) Proteus species (PCR) (Not Detect) RSV (PCR) (Not Detect) Entero/Rhino (PCR) (Not Detect) Serratia marcescens PCR (Not Detect) Staphylococcus sp PCR (Not Detect) Staph aureus (PCR) (Not Detect) mecA-Methicil Res Gene (Not Detect) Streptococcus sp PCR (Not Detect) Group A Strep DNA (Not Detect) Group B Strep (PCR) (Not Detect) Strep pneumoniae (PCR) (Not Detect) P. aeruginosa (PCR) (Not Detect) Sydney/B-Vanco Res Genes (Not Detect) KPC (blaKPC) Detect PCR (Not Detect) 07/30/18 07/30/18 Range/Units 21:02 17:51 Fluid Source Fluid Volume mL Fluid Appearance (Clear) Fluid RBC Fld Tot Nucleated Cell Fluid Seg Neutrophil % % Fld Band Neutrophil % Fluid Lymphocytes % Fluid Monocytes % Fluid Eosinophils % Fluid Basophils % Fluid Other Cells % % Nasal Screen MRSA (PCR) (Negative) A. baumannii (PCR) Not Detected (Not Detect) Chlamy pneumoniae PCR (Not Detect) Adenovirus (PCR) (Not Detect) B. pertussis DNA (PCR) (Not Detect) B.parapertussis DNA PCR (Not Detect) Priyanka albicans (PCR) Not Detected (Not Detect) C. glabrata (PCR) Not Detected (Not Detect) C. krusei (PCR) Not Detected (Not Detect) C. parapsilosis (PCR) Not Detected (Not Detect) C. tropicalis (PCR) Not Detected (Not Detect) Coronavirus OC43 (PCR) (Not Detect) Coronavirus HKU1 (PCR) (Not Detect) Coronavirus 229E (PCR) (Not Detect) Coronavirus NL63 (PCR) (Not Detect) Enterobacteriac sp PCR Not Detected (Not Detect) E. cloacae complex PCR Not Detected (Not Detect) Enterococcus sp PCR Not Detected (Not Detect) E. coli (PCR) Not Detected (Not Detect) H. influenzae (PCR) Not Detected (Not Detect) Hep Bs Antigen Nonreactive (Nonreactive) Hep Bs Antibody 1.25 mIU/mL Human Metapneumovir PCR (Not Detect) Influenza A (H1) PCR (Not Detect) Influ A (H1N1/09) PCR (Not Detect) Influenza A (H3) PCR (Not Detect) Influenza A Untype (PCR) (Not Detect) Influenza Type B (PCR) (Not Detect) Klebsiella oxytoca PCR Not Detected (Not Detect) Klebsiella pneumoniae Not Detected (Not Detect) List. monocytogenes PCR Not Detected (Not Detect) Mycoplasma pneumon IgG (<=0.09) U/L Mycoplasma pneumon IgM (<=0.76) U/L M.pneumoniae DNA (PCR) (Not Detect) N. meningitidis (PCR) Not Detected (Not Detect) Parainfluenza 1 (PCR) (Not Detect) Parainfluenza 2 (PCR) (Not Detect) Parainfluenza 3 (PCR) (Not Detect) Parainfluenza 4 (PCR) (Not Detect) Proteus species (PCR) Not Detected (Not Detect) RSV (PCR) (Not Detect) Entero/Rhino (PCR) (Not Detect) Serratia marcescens PCR Not Detected (Not Detect) Staphylococcus sp PCR DETECTED A (Not Detect) Staph aureus (PCR) DETECTED A (Not Detect) mecA-Methicil Res Gene DETECTED A (Not Detect) Streptococcus sp PCR Not Detected (Not Detect) Group A Strep DNA Not Detected (Not Detect) Group B Strep (PCR) Not Detected (Not Detect) Strep pneumoniae (PCR) Not Detected (Not Detect) P. aeruginosa (PCR) Not Detected (Not Detect) Sydney/B-Vanco Res Genes Not Detected (Not Detect) KPC (blaKPC) Detect PCR Not Detected (Not Detect) - Impressions Impressions Chest X-Ray 08/03/18 20:15 IMPRESSION: 1. Mild hazy bibasilar opacities. This is suggestive of pleural effusion and partial atelectasis. Underlying pneumonia is not excluded. 2. Cardiomegaly. D/ / Desmond Cheatham MD / Desmond Cheatham MD Interpreting Provider: Desmond Cheatham MD Chest X-Ray 08/04/18 08:20 IMPRESSION: Mild interval increase in a bilateral interstitial pattern with small pleural effusions versus bibasilar atelectasis. Radiographic findings are most suggestive of CHF/pulmonary edema. Atypical infection would be an additional diagnostic consideration. D/ / Mark Gilman / Mark Gilman Interpreting Provider: Mark Gilman Exam - Constitutional Vitals: Temp Pulse Resp BP Pulse Ox 99.1 F 114 21 178/100 100 08/04/18 07:07 08/04/18 07:07 08/04/18 07:07 08/04/18 07:07 08/04/18 07:07 General appearance: average body habitus, cooperative, mild distress - Head Head exam: Present: atraumatic, normal inspection, normocephalic - Eye Eye exam: Present: EOMI, normal appearance, PERRL Pupils: Present: normal accommodation - ENT ENT exam: Present: mucous membranes moist - Neck Neck exam: Present: normal inspection - Respiratory Respiratory exam: Present: wheezes (Coarse expiratory wheezes throughout.) - Cardiovascular Cardiovascular exam: Present: irregular rhythm, tachycardia - GI/Abdominal GI/Abdominal exam: Present: normal bowel sounds, soft. Absent: distended, tenderness - Extremities Exam Extremities exam: Present: normal inspection. Absent: joint swelling, pedal edema, tenderness - Back Exam Back exam: Present: normal inspection - Neurological Exam Neurological exam: Present: alert, oriented X3, no focal deficits - Psychiatric Psychiatric exam: Present: normal affect, normal mood - Skin Skin exam: Present: dry, intact, normal color, warm Consult Discharge Plan - Plan Referrals: Vladimir Chaidez MD [Primary Care Provider] - - Attending Attestation I examined this patient and my medical decision-making was reviewed with the Resident Physician. I agree with the documented findings, disposition and treatment plan as described except to the extent set forth below.
--- NOTE | 2018-08-04 10:50 | Nephrology Progress Note ---
Date of Encounter: 08/04/18 Time of Encounter: 10:15 - Assessment and Plan (1) ESRD on dialysis Current Visit: Yes Status: Chronic Plan for HD today with enhanced UF as tolerated by hemodynamics. Appears to be in pulm edema, along with/due to her hx recurrent/frequent respiratory distress events. Avoid nephrotoxins and renal dose all medications. Strict I/Os and daily weights. She may need another treatment for Tuesday. She remains a high risk patient. (2) HTN (hypertension) Current Visit: No Status: Chronic Will monitor. Qualifiers: Hypertension type: essential hypertension Qualified Code(s): I10 - Essential (primary) hypertension (3) Anemia in chronic kidney disease (CKD) Current Visit: No Status: Chronic Goal Hgb is 10-11: will monitor. Qualifiers: Chronic kidney disease stage: on chronic dialysis Qualified Code(s): N18.6 - End stage renal disease; D63.1 - Anemia in chronic kidney disease; D63.1 - Anemia in chronic kidney disease; Z99.2 - Dependence on renal dialysis; Z99.2 - Dependence on renal dialysis; Z99.2 - Dependence on renal dialysis; Z99.2 - Dependence on renal dialysis (4) Acute and chronic respiratory failure Current Visit: No Status: Acute per primary. Discussed with the ICU team. Palliative care was consulted d/t the recurring nature of her intubations/acute respiratory failure events. Qualifiers: Respiratory failure complication: hypoxia Qualified Code(s): J96.21 - Acute and chronic respiratory failure with hypoxia (5) Hyperkalemia Current Visit: Yes Status: Chronic Acute on chronic and recurrentl: I recommend a Low K+ (i.e. Renal) Diet. Subjective Principal diagnosis: ESRD Interval history: Pt was s/e and developed acute respiratory distress again and was transferred back to the ICU. She was not able communicate thoroughly with the BiPAP mask in place, thus limiting this subjective section. Objective - Vital Signs Vital signs: Vital Signs Temp Pulse Resp BP Pulse Ox 08/04/18 09:20 98.3 F 108 33 177/111 94 08/04/18 07:07 99.1 F 114 21 178/100 100 08/04/18 04:46 16 100 08/04/18 03:49 98.0 F 106 17 186/93 99 08/03/18 23:29 98.8 F 114 16 210/122 96 08/03/18 22:48 112 20 185/114 08/03/18 22:38 15 99 08/03/18 22:33 124 22 167/108 96 08/03/18 22:18 108 20 196/109 95 08/03/18 22:03 102 23 198/105 96 08/03/18 21:45 104 20 177/118 99 08/03/18 21:31 126 23 200/118 08/03/18 21:17 115 18 177/97 08/03/18 20:52 16 173/96 08/03/18 20:36 123 23 159/91 08/03/18 20:35 25 99 08/03/18 19:16 97.6 F 118 20 190/95 93 08/03/18 16:30 18 98 08/03/18 15:34 97.8 F 110 19 156/73 95 Intake and Output 08/03/18 08/04/18 08/04/18 23:59 07:59 15:59 Intake Total 240 / 240 200 / 200 0 / 0 Balance 240 / 240 200 / 200 0 / 0 Intake: IV Fluids 200 / 200 Levaquin Premix 500mg/100mL 500 100 / 100 mg In 100 ml @ 100 mls/hr IVPB Q48H [facility] Rx#:[id number] Zosyn 3.375 GM In 0.9 % Sodium 100 / 100 Chloride (Mini-Bag +) 100 ML @ 25 mls/hr IVPB Q12H [facility] Rx#: [id number] Oral 240 / 240 0 / 0 Other: Meal Dinner Percent of Meal Consumed 20% Weight 64.1 kg 66.5 kg Blood Glucose* 99 79 Patient Weight 08/04/18 23:59 Weight 66.5 kg - General Appearance General appearance: Present: appears started age, cachectic, chronically ill, fatigue, frail EENT: Present: ATNC, mucous membranes moist Neck: Present: supple Respiratory: Present: course breath sounds Cardiology: Present: edema (trace ankle edema bilaterally), normal S1, normal S2 Dialysis Vascular Access: Arteriovenous Fistula thrill: Yes bruit: Yes Gastrointestinal: Present: no tenderness, no guarding Integumentary: Present: warm and dry Neurologic: Present: no focal deficit, no asterixis Musculoskeletal: Present: no cyanosis, no clubbing Psychiatric: Present: cooperative - Lab 08/07/18 03:11 08/07/18 03:11 Most recent lab results ABG pH 7.42 pH Units (7.32-7.45) 08/04/18 08:38 ABG pCO2 45 mmHg (35-45) 08/04/18 08:38 ABG pO2 70 mmHg (85-104) L 08/04/18 08:38 ABG HCO3 29 mEq/L (21-27) H 08/04/18 08:38 ABG O2 Saturation 94 % (95-98) L 08/04/18 08:38 Calcium 10.5 mg/dL (8.6-10.3) H 08/04/18 05:05 Phosphorus 8.3 mg/dL (2.7-4.5) H 08/02/18 04:08 Magnesium 2.2 mg/dL (1.6-2.6) 08/02/18 04:08 Consult Discharge Plan - Plan Referrals: Vladimir Chaidez MD [Primary Care Provider] -
[2018-08-04] MEDS ORDERED: *HR* Dextrose 50 % in Water (Syg) 50 ML SYRINGE ONE (10:51)
[2018-08-04] MEDS: Budesonide/Formoterol 160/4.5 1 PUFF INH IH SCH ×2 (11:25→23:04)
--- NOTE | 2018-08-04 15:55 | Electrocardiograph Report ---
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
--- NOTE | 2018-08-04 15:56 | Electrocardiograph Report ---
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
[2018-08-04] MEDS ORDERED: *HR* Dextrose 25% in Water (Syg) 10 ML SYRINGE IVP PRN (17:04)
[2018-08-04] MEDS: Furosemide 20 MG TABLET PO SCH (18:48)
--- NOTE | 2018-08-04 19:31 | Palliative - Consult Note ---
Date of Encounter: 08/04/18 Time of Encounter: 14:30 - Assessment and Plan (1) COPD (chronic obstructive pulmonary disease) Current Visit: Yes Status: Chronic Assessment and plan: Management per pulmonary team. O2 saturation 94% on BiPAP. Qualifiers: COPD type: COPD with acute exacerbation Qualified Code(s): J44.1 - Chronic obstructive pulmonary disease with (acute) exacerbation (2) Benign hypertension with ESRD (end-stage renal disease) Current Visit: No Status: Chronic Assessment and plan: Nephrology consulted. Planned dialysis -W-. (3) Acute exacerbation of chronic obstructive airways disease Current Visit: No Status: Acute Assessment and plan: Management per primary team. Continue BiPAP. Patient's ok with short term intubation. (4) Sepsis Current Visit: Yes Status: Acute Assessment and plan: WBC improving. Clinical overall deterioration present. Qualifiers: Sepsis type: methicillin resistant Staphylococcus aureus Qualified Code(s): A41.02 - Sepsis due to Methicillin resistant Staphylococcus aureus (5) Goals of care, counseling/discussion Current Visit: Yes Status: Acute Assessment and plan: Conducted goals of care with patient's and son. Patient's making decisions at this time as patient is unable. Discussed [facility] goal of plan at discharge, including plan to return home wi th family care. Discussed chronic diseases all worsening. Discussed frequent returns to hospitals, dialysis, and doctors appointments. Patient's reports she really isn't living, but fighting to stay with him. Reports she is strong and a fighter, but realizes she has already been through so much. Discussed potential of not improving and risk of being re-intubated and potential of depedence on BiPAP machine, also discussed need for nutrition. Desires to continue BiPAP and aggressive care throughout the weekend, if worsened clinical state, will consider hospice on Tuesday, nothing confirmed at this time. Concern over stopping dialysis and understands short longevity of life post stopping dialysis. Discussed code status. Discussed the risks related to CPR, also the potential to return to fighting same chronic illnesses battling now. Patient's decided to change CODE STATUS to DNRCCA; ok with short term intubation. Palliative care will continue to follow from a distance to assist with goals of care and discharge planning. Palliative-CN HPI - Data of Consult Patient: new to practice Consult date: 08/04/18 Requesting Physician: Jessica Sampson Primary Care Provider: Vladimir Chaidez MD - Consult Narrative Palliative Care/Comfort Measures: Palliative care Reason for consult: Multiple readmissions/intubations. Goals of care. History of present illness: Ms. Carmona is a 77 year old female Arrived to [facility] on 07/30/18, for short ness of breath. Patient admitted for fluid overload and COPD. Past medical history: atrial fibrillation, COPD, DVT, Renal disease with dialysis, hyperlipidemia, hypertension, and osteoporosis. This is patients 8 admission in 2018. Initial Chest x-ray showed: Pulmonary vascular congestion and mild cardiomegaly; Left perihilar airspace opacity could represent asymmetric edema but could also represent pneumonia; Bibasilar airspace opacities worse on the right, potentially atelectasis, pneumonia, and/or aspiration; and Questionable trace bilateral pleural effusions. Upon admission, patient ordered acute dialysis, had an acute event requiring acute dialysis to be stopped as patient was not tolerating and hemodynamically unstable; patient found struggling to breathe with BiPAP support and placed transferred to ICU and decision for intubation made, as patient in acute respiratory distress. Patient medically managed for acute respiratory failure, COPD, pneumonia, and hyperkalemia. Repe at chest x-ray showed confirmed ET placement; Left upper lobe opacity may represent atelectasis/collapse from mucous plugging given its development since prior exam from earlier same day; Pneumonia is in the differential; and Cardiomegaly with bilateral pleural effusions suggesting CHF.KUB performed confirming OG tube placement. Nephrology consult; dialysis performed scheduled Tuesday, Tuesday, and Tuesday. Bronchoscopy performed showing atelectasis and pneumonia. Echo performed showing EF 65%. Patient extubated 07/31/18. Following commands. Plan to transition to step down floor as of 08/01/18. Infectious disease consulted for management of Sepsis, Bacteremia, HCAP, Acute exacerbation of COPD, Acute and chronic respiratory failure with hypoxia, elevated troponin, and Pulmonary edema. Cardiology consulted; recommend continue medical intervention at this time, [place] prior to discharge. EKG showing Afib with RVR, medically managing. Cardiology recommend ischemic evaluation once pneumonia and bacteremia resolve, possibly prior to discharge; also consider LHC prior to discharge. Repeat Chest x-ray showing: Mild hazy bibasilar opacities and Cardiomegaly. 08/04/18: increased dyspnea and chest pain, returned to ICU. Patient remained on BiPAP. Concern for hypoxia and worsening clinical picture, despite medical treatment. Palliative care consulted for recurrent intubations secondary to pulmonary disease. Patients son and (Maximino and Benny) present at bedside upon arrival. Patient asleep and arouses somewhat with stimulation; however, had just completed dialysis so very tired at this time. Patient also has precede infusing to keep calm. Patients family reports no signs of pain and no vomiting. Patient unable to participate in discussion. CC: Jessica Sampson - Time Spent with Patient Time: Total time spent is greater than 50% in coordination of care (as documented) at patient's floor/unit and/or counseling patient: Greater than 35 minutes (70 minutes of time spent reviewing chart, contacting family, and having family meeting with goals of care, code status, and management of care. Also met with Primary RN and Primary team to advise of updated plan of care.) Past Med Surg Social Fam HX - Past Medical History Medical history: atrial fibrillation, COPD, DVT, dialysis, hyperlipidemia, hypertension, osteoporosis, renal disease, other Additional medical history: broken right foot (2001), left arm fistula Psychiatric history: no psych history - Past Surgical History Surgical History: other Additional surgical history: back surgery L4-L5, , left nephrectomy for donation, cataract removal, CTR-left, A-V fistula placed in left arm. - Social History Smoking Status: Never smoker Smokeless Tobacco Status: No Alcohol use: none Drug use: none - Family History Mother Adopted: No Family Member Ethnicity: Non- Living Status: Hx Family Cardiac Disorders: No Hx Family Respiratory Disorders: No Hx Family Cancer: Yes Hx Family GI Disorders: No Hx Family Endocrine Disorder: No Hx Family Neuromuscular Disorders: No Hx Family Neurologic Disorders: No Hx Family HEENT Disorders: No Hx Family Autoimmune Disorders: No Medications and Allergies Aspirin 81 mg PO DAILY 10/12/16 [History] Atorvastatin [Lipitor] 40 mg PO HS 10/12/16 [History] Budesonide/Formoterol 160/4.5 [Symbicort 160/4.5] 2 puff IH BIDR 10/12/16 [History] Furosemide [Lasix] 20 mg PO QPM 10/12/16 [History] Furosemide [Lasix] 40 mg PO QAM 10/12/16 [History] Metoprolol XL (24 HR) Succ [Toprol Xl] 50 mg PO DAILY 01/14/17 [History] Loratadine [Claritin] 10 mg PO DAILY 03/11/17 [History] Sevelamer [Renvela] 4,000 mg PO TIDWM 03/11/17 [History] Pregabalin [Lyrica] 50 mg PO BID 11/22/17 [History] B Complex W-C No.20/Folic Acid [Virt-Caps Softgel] 1 mg PO DAILY 01/01/18 [History] Hydralazine HCl 50 mg PO TID 03/17/18 [History] Levothyroxine Sodium [Levoxyl] 50 mcg PO DAILY 03/17/18 [History] amLODIPine [Norvasc] 5 mg PO BID 03/17/18 [History] Acetylcysteine [D-Uhfvej-t-Cysteine] 600 mg PO BID 04/17/18 [History] Losartan [Cozaar] 50 mg PO DAILY #60 tablet 05/07/18 [Rx] HYDROcodone BIT/Homatropine LQ [Hycodan Syrup] 5 ml PO Q6H PRN 05/19/18 [History] predniSONE [PredniSONE] 10 mg PO DAILY 05/19/18 [History] 3% Sodium Chloride Inhalation 4 ml IH Q12HR #60 vial.neb 05/23/18 [Rx] Acetylcysteine 10% 2 ml IH [id number] #60 inhsol 05/23/18 [Rx] Albuterol Neb [Proventil Neb] 2.5 mg IH TIDR #120 inhsol 05/23/18 [Rx] Azithromycin [Zithromax] 500 mg PO Q48H #30 tablet 05/23/18 [Rx] Allopurinol [Zyloprim 100 MG] 100 mg PO DAILY 07/30/18 [History] Ipratropium/Albuterol Neb [Duoneb] 3 ml IH Q6HR 07/30/18 [History] Sulfamethoxazole/Trimeth DS [Bactrim DS] 1 tab PO DAILY 07/30/18 [History] Tiotropium [place] [Spiriva Respimat] 2 puff IH DAILY 07/30/18 [History] Allergy/AdvReac Type Severity Reaction Status Date / Time codeine Allergy Rash Verified 07/30/18 14:27 gabapentin Allergy Itching Verified 07/30/18 14:27 ROS unobtainable: due to mental status Palliative Care-Exam - Constitutional Vitals: Temp Pulse Resp BP Pulse Ox 97.7 F 95 22 135/87 97 08/04/18 14:45 08/04/18 14:00 08/04/18 14:45 08/04/18 14:45 08/04/18 14:00 General appearance: Present: average body habitus, cooperative, no acute distress - Head Head Exam: Present: atraumatic, normal inspection - Eye Eye exam: Present: normal appearance. Absent: periorbital swelling, periorbital tenderness - ENT ENT exam: Present: mucous membranes dry, normal external ear exam - Expanded ENT Exam Mouth Exam: Absent: drooling - Neck Neck exam: Present: normal inspection - Respiratory Respiratory exam: Present: CTAB. Absent: accessory muscle use, respiratory distress - Cardiovascular Cardiovascular exam: Present: irregular rhythm - Expanded Cardiovascular Exam Peripheral pulses: 2+: Posterior Tibialis (L), Posterior Tibialis (R), Dorsalis Pedis (L) PM, Dorsalis Pedis (R) PM, 3+/4+: Radial (L), Radial (R) - GI/Abdominal Exam GI/Abdominal exam: Present: diminished bowel sounds, soft. Absent: tenderness - Rectal Rectal exam: Present: deferred - Additional comments: Anuric/dialysis. - Extremities Exam Additional comments: peripheral edema present 2+ - Neurological Exam Neurological exam: Present: alert, altered. Absent: oriented X3 - Expanded Neurological Exam Coma Scale Eye Opening: To Voice Coma Scale Motor Response: Localizes to Pain Coma Scale Verbal Response: None Coma Scale Total: 9 - Psychiatric Psychiatric exam: Present: flat affect - Skin Skin exam: Present: dry, intact Internal Medicine - CN: Reslt - Labs CBC & Chem 7: 08/04/18 05:05 08/04/18 05:05 Labs: Short CBC 08/04/18 Range/Units 05:05 WBC 7.8 (4.3-11.1) K/mcL Hgb 10.5 L (11.5-15.4) g/dL Hct 33.3 L (35.3-44.9) % Plt Count 140 (140-400) K/mcL Neutrophils # 6.6 (1.6-8.9) K/mcL BMP 08/04/18 05:05 Sodium 137 Potassium 4.2 Chloride 96 L Carbon Dioxide 28 BUN 58 H Creatinine 5.41 H Glucose 90 Calcium 10.5 H Cardiac Enzymes 08/04/18 08/04/18 Range/Units 08:11 14:04 Troponin I 1.08 H* 0.97 H* (< 0.04) ng/mL - ABG Interpretation ABG results: ABG ABG pH 7.42 pH Units (7.32-7.45) 08/04/18 08:38 ABG pCO2 45 mmHg (35-45) 08/04/18 08:38 ABG pO2 70 mmHg (85-104) L 08/04/18 08:38 ABG O2 Saturation 94 % (95-98) L 08/04/18 08:38 PT/INR, D-dimer PT 10.0 Seconds (9.4-12.1) 07/30/18 21:02 - Impressions Impressions Chest X-Ray 08/03/18 20:15 IMPRESSION: 1. Mild hazy bibasilar opacities. This is suggestive of pleural effusion and partial atelectasis. Underlying pneumonia is not excluded. 2. Cardiomegaly. D/ / Desmond Cheatham MD / Desmond Cheatham MD Interpreting Provider: Desmond Cheatham MD Chest X-Ray 08/04/18 08:20 IMPRESSION: Mild interval increase in a bilateral interstitial pattern with small pleural effusions versus bibasilar atelectasis. Radiographic findings are most suggestive of CHF/pulmonary edema. Atypical infection would be an additional diagnostic consideration. D/ / Mark Gilman / Mark Gilman Interpreting Provider: Mark Gilman Consult Discharge Plan - Plan Referrals: Vladimir Chaidez MD [Primary Care Provider] - Palliative Quality Palliative Quality: Screen for Code Status: Yes, Screen for Goals of Care: Yes, Screen for Pain: Yes, If Pain Regimen Started, Initiate Bowel Regimen: NA, Screen for Nausea/Vomitting: Yes Code Status: 07/30/18 20:37 CODE [Resuscitation Status: Active] [RES] Routine Comment: Resuscitation Status: Full Code
[2018-08-04 21:27] LABS: ABG Base Excess 3 mEq/L (-2 to 3); ABG HCO3 28 mEq/L (21-27); ABG Oxygen Saturation 97 % (95-98); ABG PCO2 41 mmHg (35-45); ABG PH 7.44 pH Units (7.32-7.45); ABG PO2 92 mmHg (85-104); ABG TCO2 29 mEq/L (20-26); Blood Gas PEEP 8 cm H2O
[2018-08-04] MEDS ORDERED: Nitroglycerin 1 INCH/GM PACKET TP ONE (22:13)
[2018-08-04] MEDS ORDERED: *HR* Morphine 2 MG/ML SYRINGE IVP ONE (22:45)
[2018-08-05 03:56] LABS: Basophils % 0.1 %; Hematocrit 34.2 % (35.3-44.9); Immature Granulocytes % 0.8 % (0-4); Lymphocytes # 0.3 K/mcL (0.6-4.6); Lymphocytes % 3.1 %; Mean Corpuscular HGB Conc 32.2 g/dL (31.6-35.5); Mean Corpuscular Hemoglobin 31.4 pg (28.0-33.3); Mean Corpuscular Volume 97.7 fL (83.0-100.0); Mean Platelet Volume 10.7 fL (9.4-12.4); Monocytes # 0.2 K/mcL (0.0-1.3); Monocytes % 2.4 %; Neutrophils # 7.8 K/mcL (1.6-8.9); Platelet Count 132 K/mcL (140-400); Red Cell Distribution Width 14.4 % (11.5-14.5); Segmented Neutrophils % 93.6 %
[2018-08-05 04:07] LABS: Albumin 3.2 g/dL (3.5-5.7); Albumin/Globulin Ratio 1.3 (1.1-2.2); Bilirubin,Total 0.7 mg/dL (0.3-1.0); Calcium 10.2 mg/dL (8.6-10.3); Globulin 2.4 g/dL (2.4-3.5); Magnesium 2.2 mg/dL (1.6-2.6); Phosphorous 7.1 mg/dL (2.7-4.5); Total Protein 5.6 g/dL (6.4-8.9)
[2018-08-05] MEDS: Ipratropium/Albuterol Neb 3 ML IH SCH ×4 (04:11→22:03)
[2018-08-05] MEDS: Piperacillin/Tazobactam 3.375 GM in 0.9 % Sodium Chloride Mini Bag 100 ML IVPB SCH ×2 (04:12→18:09)
[2018-08-05 04:59] LABS: ABG Base Excess 3 mEq/L (-2 to 3); ABG HCO3 27 mEq/L (21-27); ABG Oxygen Saturation 95 % (95-98); ABG PCO2 42 mmHg (35-45); ABG PH 7.42 pH Units (7.32-7.45); ABG PO2 74 mmHg (85-104); ABG TCO2 29 mEq/L (20-26); Blood Gas PEEP 8 cm H2O
[2018-08-05] MEDS: *HR* Heparin 5,000 UNIT/ML VIAL SQ SCH ×2 (06:09→18:09)
--- NOTE | 2018-08-05 06:51 | Pulmonology Progress Note ---
Date of Encounter: 08/05/18 Assessment and Plan (1) Acute and chronic respiratory failure with hypoxia Current Visit: Yes Status: Acute Admitted for increasing SOB due to volume overload. As she was undergoing dialysis she became hypoxic and was subsequently intubated. CXR showed LAST atelectasis vs pneumonia. Cardiomegaly with B/L pleural effusions suggestive of CHF - echo pending. Bronchoscopy 07/31/2018 - awaiting BAL cultures Extubated successfully yesterday Vancomycin, zosyn, and levaquin day 2 Respiratory infectious panel and Mycoplasma antigen screen negative MRSA nasal swab positive Blood culture positive for MRSA Legionella and Strep pneumo were considered but pt is anuric so these labs are unable to be done Continue abx as above - awaiting BAL culture results De-escalate steroids to Prednisone 40mg po daily Stable to transfer to telemetry floor (2) Atrial fibrillation with RVR Current Visit: Yes Status: Chronic On 50mg Toprol XL at home Pt became persistently tachycardic overnight with HR in the 120s Started Metoprolol 25mg BID Started Cardizem drip, however HR remained unchanged Stopped Cardizem drip. Gave 5mg Lopressor IV May be rebound tachycardia since metoprolol was held with intubation Consider increasing Metoprolol (3) Acute exacerbation of chronic obstructive pulmonary disease (COPD) Current Visit: Yes Status: Acute Mucus plugging vs pneumonia Plan as above (4) ESRD on dialysis Current Visit: Yes Status: Chronic Nephrology on board Dialysis MWF PUF Tuesday with 2875 mL dialyzed Had 1950mL further removed via HD yesterday Per nephro - resume MWF dialysis schedule at this time (5) Positive blood culture Current Visit: Yes Status: Acute Gm+ cocci detected in BC obtained at 21:00 on 07/30/18 - MRSA positive Bronchoscopy and sputum cultures pending Continue Vanc, zosyn and levaquin Improving clinically after bronchoscopy yesterday. Await BAL culture for possible PNA Repeat blood cultures (6) Elevated troponin Current Visit: Yes Status: Acute 0.09 --> 0.22 yesterday Likely secondary to demand ischemia EKG showed afib w/ RVR at 109bpm and ST segment depression in leads V5 and V6 (7) Hyperkalemia Current Visit: Yes Status: Resolved Was elevated at 6.5 on admission Improved after HD Resolved today at 4.3 Continue to monitor (8) DVT prophylaxis Current Visit: Yes Status: Acute SQ Heparin Subjective Principal diagnosis: ESRD Interval history: Pt seen and examined at bedside. Pt became tachycardic in the 120s overnight, but remained asymptomatic. Pt resting comfortably in bed. States she is still coughing, but admits that it is significantly easier for her to breath. Denies any chest pain, abdominal pain, nausea, vomiting, headaches, numbness, or tin gling. Objective PUL Vital signs: Last Vital Signs Temp 97.3 F L 08/05/18 06:26 Pulse 94 08/05/18 06:00 Resp 32 08/05/18 06:00 BP 180/73 08/05/18 06:00 Pulse Ox 95 08/05/18 06:00 Results - Laboratory Findings CBC and BMP: 08/05/18 03:38 08/05/18 03:38 ABG ABG pH 7.42 pH Units (7.32-7.45) 08/05/18 04:56 ABG pCO2 42 mmHg (35-45) 08/05/18 04:56 ABG pO2 74 mmHg (85-104) L 08/05/18 04:56 ABG O2 Saturation 95 % (95-98) 08/05/18 04:56 PT/INR, D-dimer PT 10.0 Seconds (9.4-12.1) 07/30/18 21:02 Abnormal lab findings: Abnormal lab results RBC 3.50 M/mcL (3.82-4.97) L 08/05/18 03:38 Hgb 11.0 g/dL (11.5-15.4) L 08/05/18 03:38 Hct 34.2 % (35.3-44.9) L 08/05/18 03:38 Plt Count 132 K/mcL (140-400) L 08/05/18 03:38 Lymphocytes # 0.3 K/mcL (0.6-4.6) L 08/05/18 03:38 ABG pO2 74 mmHg (85-104) L 08/05/18 04:56 ABG Total CO2 29 mEq/L (20-26) H 08/05/18 04:56 BUN 46 mg/dL (8-23) H 08/05/18 03:38 Creatinine 4.18 mg/dL (0.60-1.20) H 08/05/18 03:38 Est GFR ( Amer) 13 (> 60) L 08/05/18 03:38 Est GFR (Non-Af Amer) 10 (> 60) L 08/05/18 03:38 POC Glucose 67 mg/dL (70-99) L 08/04/18 17:01 Phosphorus 7.1 mg/dL (2.7-4.5) H 08/05/18 03:38 Troponin I 0.97 ng/mL (< 0.04) H* 08/04/18 14:04 Serum Total Protein 5.6 g/dL (6.4-8.9) L 08/05/18 03:38 Albumin 3.2 g/dL (3.5-5.7) L 08/05/18 03:38 Fluid Appearance Cloudy (Clear) A 07/31/18 11:00 Nasal Screen MRSA (PCR) Positive (Negative) A 07/31/18 12:10 Staphylococcus sp PCR DETECTED (Not Detect) A 08/01/18 11:45 Staph aureus (PCR) DETECTED (Not Detect) A 08/01/18 11:45 mecA-Methicil Res Gene DETECTED (Not Detect) A 08/01/18 11:45 - Microbiology Findings Microbiology Findings: Microbiology, Last 48 Hours 07/30/18 21:02 Blood Culture - Final Peripheral Venipuncture Methicillin Resistant S.aureus 07/31/18 10:57 Legionella Culture - Final Left Upper Lobe Lung 07/31/18 11:00 Legionella Culture - Final Right Middle Lobe Lung 08/01/18 11:45 Blood Culture - Final Peripheral Venipuncture Methicillin Resistant S.aureus 07/31/18 05:30 Sputum Culture - Final Sputum 07/31/18 10:57 Respiratory Culture - Final Left Upper Lobe Lung 07/31/18 11:00 Respiratory Culture - Final Right Middle Lobe Lung - Clinical Findings Intake & Output: Intake & Output 08/04/18 08/04/18 08/05/18 15:59 23:59 07:59 Intake Total 600 / 600 150 / 150 Output Total 2100 / 2100 Balance -1500 / -1500 150 / 150 Weight 66.5 kg 67.1 kg Consult Discharge Plan - Plan Referrals: Vladimir Chaidez MD [Primary Care Provider] -
[2018-08-05] MEDS: Dexmedetomidine HCl 400 MCG/100 ML MLS IVC SCH ×2 (07:41→07:42)
[2018-08-05] MEDS: Lactobacillus 1 EACH CAP.SPRINK PO SCH (07:42)
[2018-08-05] MEDS: predniSONE 20 MG TABLET PO SCH (07:42)
[2018-08-05] MEDS: Renal Vitamin 1 CAP CAPSULE PO SCH (07:42)
[2018-08-05] MEDS: Aspirin 81 MG TAB.CHEW PO SCH (07:42)
[2018-08-05] MEDS: Furosemide 40 MG TABLET PO SCH (07:42)
[2018-08-05] MEDS: hydrALAZINE 25 MG TABLET PO SCH (07:42)
[2018-08-05] MEDS: Metoprolol XL (24 HR) Succ 50 MG TAB.ER.24H PO SCH (07:42)
--- NOTE | 2018-08-05 08:01 | Pulmonology Progress Note ---
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 We need to discuss with family and patient whether she wanted to go undergo bronchoscopy. (2) Benign hypertension with ESRD (end-stage renal disease) Current Visit: No Status: Chronic Patient to undergo dialysis today to see that will help in the V/Q mismatch (3) COPD (chronic obstructive pulmonary disease) Current Visit: Yes Status: Chronic Patient COPD symptoms to be treated with bronchodilators to continue steroids. Qualifiers: COPD type: COPD with acute exacerbation Qualified Code(s): J44.1 - Chronic obstructive pulmonary disease with (acute) exacerbation (4) Pneumonia Current Visit: No Status: Suspected Patient is on vancomycin and previous history of MRSA pneumonia and bacteremia in the interim and patient was getting better and she has recurrent mucus plugging and continues to do this recurrent pneumonia is due to recurrence mucus plugging due to the mechanical issue she has that her tracheobronchial malacia Qualifiers: Pneumonia type: due to unspecified organism Laterality: left Lung location: unspecified part of lung Qualified Code(s): J18.9 - Pneumonia, unspecified organism (5) Mucus plugging of bronchi Current Visit: No Status: Chronic Patient has 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 Subjective Principal diagnosis: ESRD Interval history: Patient still BIPAP dependent patient is going to dialysis today to do repeat CXR today. Patient says she is having increased shortness of breadth but she is tolerating the BIPAP well. Objective PUL Vital signs: Last Vital Signs Temp 97.3 F L 08/05/18 06:26 Pulse 94 08/05/18 06:00 Resp 32 08/05/18 06:00 BP 180/73 08/05/18 06:00 Pulse Ox 95 08/05/18 06:00 Auscultation: bilateral: diminished breath sounds (basilar diminshed breadth sounds ), wheezes (some scattered wheezes ) Results - Laboratory Findings CBC and BMP: 08/05/18 03:38 08/05/18 03:38 ABG ABG pH 7.42 pH Units (7.32-7.45) 08/05/18 04:56 ABG pCO2 42 mmHg (35-45) 08/05/18 04:56 ABG pO2 74 mmHg (85-104) L 08/05/18 04:56 ABG O2 Saturation 95 % (95-98) 08/05/18 04:56 PT/INR, D-dimer PT 10.0 Seconds (9.4-12.1) 07/30/18 21:02 Abnormal lab findings: Abnormal lab results RBC 3.50 M/mcL (3.82-4.97) L 08/05/18 03:38 Hgb 11.0 g/dL (11.5-15.4) L 08/05/18 03:38 Hct 34.2 % (35.3-44.9) L 08/05/18 03:38 Plt Count 132 K/mcL (140-400) L 08/05/18 03:38 Lymphocytes # 0.3 K/mcL (0.6-4.6) L 08/05/18 03:38 ABG pO2 74 mmHg (85-104) L 08/05/18 04:56 ABG Total CO2 29 mEq/L (20-26) H 08/05/18 04:56 BUN 46 mg/dL (8-23) H 08/05/18 03:38 Creatinine 4.18 mg/dL (0.60-1.20) H 08/05/18 03:38 Est GFR ( Amer) 13 (> 60) L 08/05/18 03:38 Est GFR (Non-Af Amer) 10 (> 60) L 08/05/18 03:38 POC Glucose 67 mg/dL (70-99) L 08/04/18 17:01 Phosphorus 7.1 mg/dL (2.7-4.5) H 08/05/18 03:38 Troponin I 0.97 ng/mL (< 0.04) H* 08/04/18 14:04 Serum Total Protein 5.6 g/dL (6.4-8.9) L 08/05/18 03:38 Albumin 3.2 g/dL (3.5-5.7) L 08/05/18 03:38 Fluid Appearance Cloudy (Clear) A 07/31/18 11:00 Nasal Screen MRSA (PCR) Positive (Negative) A 07/31/18 12:10 Staphylococcus sp PCR DETECTED (Not Detect) A 08/01/18 11:45 Staph aureus (PCR) DETECTED (Not Detect) A 08/01/18 11:45 mecA-Methicil Res Gene DETECTED (Not Detect) A 08/01/18 11:45 - Microbiology Findings Microbiology Findings: Microbiology, Last 48 Hours 07/30/18 21:02 Blood Culture - Final Peripheral Venipuncture Methicillin Resistant S.aureus 07/31/18 10:57 Legionella Culture - Final Left Upper Lobe Lung 07/31/18 11:00 Legionella Culture - Final Right Middle Lobe Lung 08/01/18 11:45 Blood Culture - Final Peripheral Venipuncture Methicillin Resistant S.aureus 07/31/18 05:30 Sputum Culture - Final Sputum 07/31/18 10:57 Respiratory Culture - Final Left Upper Lobe Lung 07/31/18 11:00 Respiratory Culture - Final Right Middle Lobe Lung - Clinical Findings Intake & Output: Intake & Output 08/04/18 08/04/18 08/05/18 15:59 23:59 07:59 Intake Total 600 / 600 150 / 150 Output Total 2100 / 2100 Balance -1500 / -1500 150 / 150 Weight 66.5 kg 67.1 kg Consult Discharge Plan - Plan Referrals: Vladimir Chaidez MD [Primary Care Provider] -
[2018-08-05] MEDS: Levofloxacin 500 MG/100 ML 500 MG/100 ML BAG IVPB SCH (08:17)
[2018-08-05] MEDS: Pantoprazole 40 MG VIAL IVP SCH (08:18)
[2018-08-05] MEDS ORDERED: 0.9 % Sodium Chloride 250 ML IVC PRN (10:19)
--- NOTE | 2018-08-05 10:28 | Nephrology Progress Note ---
Date of Encounter: 08/05/18 Time of Encounter: 10:00 - Assessment and Plan (1) ESRD on dialysis Current Visit: Yes Status: Chronic Plan for HD today (Tuesday) for primarily UF given her ongoing/recurrent acute respiratory failure. Strict I/O and daily weights to continue. Discussed with the ICU team. Her prognosis appears more worrisome. She remains a high risk patient in who's record I reviewed the labs, vitals, med list, progress notes, imaging. (2) HTN (hypertension) Current Visit: No Status: Chronic Will monitor. Qualifiers: Hypertension type: essential hypertension Qualified Code(s): I10 - Essential (primary) hypertension (3) Anemia in chronic kidney disease (CKD) Current Visit: No Status: Chronic Goal Hgb is 10-11: will monitor. Qualifiers: Chronic kidney disease stage: on chronic dialysis Qualified Code(s): N18.6 - End stage renal disease; D63.1 - Anemia in chronic kidney disease; D63.1 - Anemia in chronic kidney disease; Z99.2 - Dependence on renal dialysis; Z99.2 - Dependence on renal dialysis; Z99.2 - Dependence on renal dialysis; Z99.2 - Dependence on renal dialysis (4) Acute and chronic respiratory failure Current Visit: No Status: Acute per primary. Discussed with the ICU team. Palliative care was consulted on Tuesday d/t the recurring nature of her intubations/acute respiratory failure events. Qualifiers: Respiratory failure complication: hypoxia Qualified Code(s): J96.21 - Acute and chronic respiratory failure with hypoxia (5) Hyperkalemia Current Visit: Yes Status: Chronic Acute on chronic and recurrentl: I recommend a Low K+ (i.e. Renal) Diet when ever her diet is resumed. (6) Hyperphosphatemia Current Visit: No Status: Chronic Acute on chronic and worsening. Renal diet that is low in Phos is recommended. She is currently intubated so not able to add Phos binders presently. Subjective Principal diagnosis: ESRD Interval history: Pt was s/e in the ICU: she was not able communicate d/t Intubation, thus limiting this subjective section. Objective - Vital Signs Vital signs: Vital Signs Temp Pulse Resp BP Pulse Ox 08/05/18 09:00 72 26 188/70 95 08/05/18 08:00 72 25 180/78 96 08/05/18 07:00 70 26 174/84 96 08/05/18 06:26 97.3 F L 08/05/18 06:00 94 32 180/73 95 08/05/18 05:00 75 27 164/96 96 08/05/18 04:12 30 194/92 95 08/05/18 04:00 77 30 194/82 95 08/05/18 03:34 98.2 F 08/05/18 03:00 69 31 161/76 96 08/05/18 02:00 80 28 164/81 99 08/05/18 01:00 77 29 159/96 95 08/05/18 00:11 97.5 F L 08/05/18 00:00 82 28 166/78 93 08/04/18 23:05 34 186/90 94 08/04/18 23:00 86 35 186/90 90 08/04/18 22:00 74 29 161/65 92 08/04/18 21:00 77 36 178/75 95 08/04/18 20:00 99.5 F 78 31 164/87 96 08/04/18 19:00 78 28 133/71 97 08/04/18 18:00 113 29 155/125 99 08/04/18 17:07 32 110/73 99 08/04/18 17:00 116 32 110/73 97 08/04/18 16:00 102 32 147/78 96 08/04/18 15:00 111 32 130/82 96 08/04/18 14:45 97.7 F 22 135/87 08/04/18 14:30 128/76 08/04/18 14:15 125/89 08/04/18 14:00 95 20 126/73 97 08/04/18 13:45 113/67 08/04/18 13:30 109/65 08/04/18 13:15 127/68 08/04/18 13:00 111 33 120/69 95 08/04/18 12:45 124/79 08/04/18 12:30 125/59 08/04/18 12:15 127/68 08/04/18 12:00 98.7 F 94 33 92/67 96 08/04/18 11:46 98 30 115/65 94 08/04/18 11:45 115/65 08/04/18 11:35 34 94 08/04/18 11:30 123/69 08/04/18 11:15 127/73 08/04/18 11:00 98.7 F 20 120/87 Intake and Output 08/04/18 08/05/18 08/05/18 23:59 07:59 15:59 Intake Total 150 / 150 200 / 200 Output Total 0 / 0 Balance 150 / 150 200 / 200 Intake: IV Fluids 150 / 150 200 / 200 PRECEDEX Premix 400 mcg In 100 50 / 50 ml @ 0 mls/hr IVC .[facility] Rx#:[id number] Levaquin Premix 500mg/100mL 500 100 / 100 mg In 100 ml @ 100 mls/hr IVPB Q48H [facility] Rx#:[id number] Zosyn 3.375 GM In 0.9 % Sodium 100 / 100 100 / 100 Chloride (Mini-Bag +) 100 ML @ 25 mls/hr IVPB 0500,1700 [facility] Rx #:[id number] Oral 0 / 0 Output: Urine 0 / 0 Other: Weight 67.1 kg Patient Weight 08/05/18 23:59 Weight 67.1 kg - General Appearance General appearance: Present: cachectic, chronically ill, sedated on ventilator, intubated, fatigue, frail EENT: Present: ATNC, mucous membranes moist Neck: Present: supple Respiratory: Present: course breath sounds Cardiology: Present: edema (no edema today noted on my exam. ), normal S1, normal S2 Dialysis Vascular Access: Arteriovenous Fistula thrill: Yes bruit: Yes Gastrointestinal: Present: normoactive bowel sounds, no guarding Integumentary: Present: ecchymotic Neurologic: Present: no focal deficit, no asterixis Musculoskeletal: Present: no clubbing - Lab 08/07/18 03:11 08/07/18 03:11 Most recent lab results ABG pH 7.42 pH Units (7.32-7.45) 08/05/18 04:56 ABG pCO2 42 mmHg (35-45) 08/05/18 04:56 ABG pO2 74 mmHg (85-104) L 08/05/18 04:56 ABG HCO3 27 mEq/L (21-27) 08/05/18 04:56 ABG O2 Saturation 95 % (95-98) 08/05/18 04:56 Calcium 10.2 mg/dL (8.6-10.3) 08/05/18 03:38 Phosphorus 7.1 mg/dL (2.7-4.5) H 08/05/18 03:38 Magnesium 2.2 mg/dL (1.6-2.6) 08/05/18 03:38 Consult Discharge Plan - Plan Referrals: Vladimir Chaidez MD [Primary Care Provider] -
[2018-08-05] MEDS ORDERED: 0.9 % Sodium Chloride 1,000 ML PRIME SCH (10:30)
[2018-08-05] MEDS: Budesonide/Formoterol 160/4.5 1 PUFF INH IH SCH ×2 (10:53→22:03)
[2018-08-05] MEDS: *HR* Metoprolol 5 MG/5 ML VIAL IVP SCH ×2 (10:54→18:08)
[2018-08-05] MEDS: *HR* LORazepam 2 MG/ML VIAL IVP PRN ×2 (13:39→22:02)
--- NOTE | 2018-08-05 19:17 | Electrocardiograph Report ---
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
[2018-08-05] MEDS ORDERED: *HR* Morphine 2 MG/ML SYRINGE IVP ONE (23:36)
[2018-08-05] MEDS ORDERED: *HR* LORazepam 2 MG/ML VIAL ONE (23:44)
[2018-08-05] MEDS ORDERED: Ipratropium/Albuterol Neb 3 ML ONE (23:44)
[2018-08-05] MEDS ORDERED: Nitroglycerin 25 MG/250 ML INFUS..BTL IVC ONE (23:46)
[2018-08-05] MEDS: Nitroglycerin 25 MG/250 ML INFUS..BTL IVC SCH (23:55)
[2018-08-05 23:58] LABS: ABG Base Excess 3 mEq/L (-2 to 3); ABG HCO3 31 mEq/L (21-27); ABG Oxygen Saturation 85 % (95-98); ABG PCO2 62 mmHg (35-45); ABG PO2 57 mmHg (85-104); ABG TCO2 33 mEq/L (20-26); Blood Gas PEEP 8 cm H2O
[2018-08-05] MEDS ORDERED: *HR* LORazepam 2 MG/ML VIAL IVP ONE (23:58)
[2018-08-06] MEDS ORDERED: Ipratropium/Albuterol Neb 3 ML IH ONE (00:02)
[2018-08-06] MEDS: Dexmedetomidine HCl 400 MCG/100 ML MLS IVC SCH ×2 (00:09→12:30)
[2018-08-06] MEDS: *HR* Metoprolol 5 MG/5 ML VIAL IVP SCH ×4 (00:12→17:29)
[2018-08-06 01:13] LABS: ABG Base Excess 2 mEq/L (-2 to 3); ABG HCO3 28 mEq/L (21-27); ABG Oxygen Saturation 92 % (95-98); ABG PCO2 51 mmHg (35-45); ABG PH 7.35 pH Units (7.32-7.45); ABG PO2 68 mmHg (85-104); ABG TCO2 30 mEq/L (20-26); Blood Gas PEEP 10 cm H2O
[2018-08-06] MEDS: Ipratropium/Albuterol Neb 3 ML IH SCH ×4 (04:27→21:01)
[2018-08-06] MEDS: Piperacillin/Tazobactam 3.375 GM in 0.9 % Sodium Chloride Mini Bag 100 ML IVPB SCH ×2 (04:30→16:33)
[2018-08-06 05:05] LABS: ABG Base Excess 3 mEq/L (-2 to 3); ABG HCO3 30 mEq/L (21-27); ABG Oxygen Saturation 95 % (95-98); ABG PCO2 58 mmHg (35-45); ABG PH 7.32 pH Units (7.32-7.45); ABG PO2 83 mmHg (85-104); ABG TCO2 32 mEq/L (20-26); Blood Gas PEEP 8 cm H2O
[2018-08-06] MEDS: *HR* Heparin 5,000 UNIT/ML VIAL SQ SCH ×2 (05:41→18:07)
[2018-08-06 05:53] LABS: Basophils % 0.2 %; Hematocrit 37.3 % (35.3-44.9); Hemoglobin 11.7 g/dL (11.5-15.4); Immature Granulocytes % 1.4 % (0-4); Lymphocytes # 0.4 K/mcL (0.6-4.6); Lymphocytes % 3.3 %; Mean Corpuscular HGB Conc 31.4 g/dL (31.6-35.5); Mean Corpuscular Hemoglobin 31.1 pg (28.0-33.3); Mean Corpuscular Volume 99.2 fL (83.0-100.0); Monocytes # 0.7 K/mcL (0.0-1.3); Monocytes % 5.7 %; Neutrophils # 10.9 K/mcL (1.6-8.9); Platelet Count 156 K/mcL (140-400); Red Blood Count 3.76 M/mcL (3.82-4.97); Red Cell Distribution Width 14.4 % (11.5-14.5); Segmented Neutrophils % 89.4 %
[2018-08-06 06:10] LABS: Magnesium 2.3 mg/dL (1.6-2.6); Phosphorous 8.8 mg/dL (2.7-4.5); Potassium 4.6 mEq/L (3.5-5.1)
[2018-08-06] MEDS ORDERED: *HR* Midazolam HCl 5 MG/5 ML VIAL IVP ONE (07:28)
[2018-08-06] MEDS ORDERED: *HR* Etomidate 20 MG/10 ML AMPUL IVP ONE (07:28)
[2018-08-06] MEDS ORDERED: *HR* Rocuronium Bromide 50 MG/5 ML VIAL IVC ONE (07:28)
[2018-08-06] MEDS: Pantoprazole 40 MG VIAL IVP SCH (08:12)
[2018-08-06] MEDS ORDERED: Ipratropium/Albuterol Neb 3 ML ONE ×2 (09:10→15:18)
[2018-08-06] MEDS: Budesonide/Formoterol 160/4.5 1 PUFF INH IH SCH ×2 (09:23→21:02)
[2018-08-06] MEDS ORDERED: Artificial Tears SOLN 15 ML BOTTLE BOTH EYES PRN (09:26)
--- NOTE | 2018-08-06 09:26 | Procedure Note ---
<Nicanor Lopez - Last Filed: 08/06/18 09:29> Date of procedure: 08/06/18 Pre-op diagnosis: acute respiratory failure with hypoxia Post-op diagnosis: same Procedure: Date: 08/06/18 Time: 09:15 Indication: Respiratory Distress Resident: Nicanor Lopez Attending: Dr. Quintana A time-out was completed verifying correct patient, procedure, site, positioning, and special equipment if applicable. The patient was placed in a flat position. Sedation was obtained using Etomidate 20mg. The patient was easily ventilated using an ambu bag. The MAC 3 BLADE was used and inserted into the oropharynx at which time there was a Grade 3 view of the vocal cords. A 7.5- surinamese endotracheal tube was inserted and visualized going through the vocal cords. The stylette was removed. Colorimetric change was not visualized and breath sounds were not heard in both lung marquez bilaterally. The ET tube was removed, and the Glidescope was prepped. Further sedation with 5mg Versed was administered. The glidescope technology was then used and inserted into the oropharynx at which time there was a Grade 1 view of the vocal cords. A 7.5- surinamese ET tubee was inserted and visualized going through the vocal cords. Colorimetric change was visualized on the CO2 meter. Breath sounds were heard in both lung marquez equally. The endotracheal tube was placed at 22 cm, measured at the teeth. Dr. Quintana was present for the entire procedure. A chest x-ray was ordered to assess for pneumothorax and verify endotrachealtube placement. Estimated Blood Loss: 0mL The patient tolerated the procedure well and there were no complications. Anesthesia: IV sedation Surgeon: Nicanor Lopez Was there an office clerk assistant present: Yes Medical Cost Consultant: Jarod Quintana Estimated blood loss (cc): 0 Specimen: none Pathology: none sent Condition: critical Disposition: ICU <Jarod Quintana - Last Filed: 08/06/18 10:06> Procedure: I was present during the entire procedure of intubation i supervised and assisted on the 2 attempts of intubation done by the resident the first direct laryngoscopy attempt had some mucosal trauma.
[2018-08-06] MEDS: FentaNYL (PF) 1,000 MCG in 0.9 % Sodium Chloride 80 ML IVC SCH ×2 (10:02→23:15)
--- NOTE | 2018-08-06 10:07 | Pulmonology Progress Note ---
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 had a bronchoscopy on Tuesday left upper lobe collapse today worsening VQ mismatch due to right upper lobe collapse most likely due to mucus plugging plugging) before bronchoscopy she decompensated with oxygen saturation around 80% I decided to intubate in the ICU after endotracheal intubation his saturation came up and the repeat chest x-ray after intubation showed no evidence of collapse after half an hour patient desaturated decided to do bronchoscopy during the bronchoscopy patient had extensive mucus plugging in the right upper lobe right middle lobe and left upper lobe with inflamed mucosa took half an hour off recurrent bronchoscopy aided therapeutic suctioning. Patient tolerated the procedure well looks like the patient might need another bronchoscopy in 1 or 2 days with the amount of thick mucus plugging she is having ,will need to address with the family how long she wants to go through i personally asked the patient before she got intubated she said she was willing to undergo bronchoscopy. (2) Benign hypertension with ESRD (end-stage renal disease) Current Visit: No Status: Chronic Patient to have dialysis tomorrow . (3) COPD (chronic obstructive pulmonary disease) Current Visit: Yes Status: Chronic Patient COPD symptoms to be treated with bronchodilators to continue steroids. Qualifiers: COPD type: COPD with acute exacerbation Qualified Code(s): J44.1 - Chronic obstructive pulmonary disease with (acute) exacerbation (4) Pneumonia Current Visit: No Status: Suspected Patient is on vancomycin ,Zosyn and with previous history of MRSA pneumonia and bacteremia in the interim and patient was getting better and she has recurrent mucus plugging and continues to do this recurrent pneumonia is due to recurrence mucus plugging due to the mechanical issue she has that her tracheobronchial malacia 08/06 patient had worsening mucus plugging had bronchoscopy with therapeutic suctioning. To continue broad-spectrum antibiotics. 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 Subjective Principal diagnosis: ESRD Interval history: Patient still BIPAP dependent had do dialysis today still on oxygen requirements did not come down repeat the chest x-ray which showed right upper lobe collapse patient is scheduled for bronchoscopy. Objective PUL Vital signs: Last Vital Signs Temp 97.7 F 08/06/18 07:00 Pulse 72 08/06/18 09:00 Resp 30 08/06/18 09:00 BP 156/81 08/06/18 09:00 Pulse Ox 82 08/06/18 09:00 Effort: mildly labored Auscultation: bilateral: diminished breath sounds (basilar diminshed breadth sounds ), wheezes Cardiovascular: irregular rhythm Results - Laboratory Findings CBC and BMP: 08/06/18 05:39 08/06/18 05:39 ABG ABG pH 7.32 pH Units (7.32-7.45) 08/06/18 05:02 ABG pCO2 58 mmHg (35-45) H 08/06/18 05:02 ABG pO2 83 mmHg (85-104) L 08/06/18 05:02 ABG O2 Saturation 95 % (95-98) 08/06/18 05:02 PT/INR, D-dimer PT 10.0 Seconds (9.4-12.1) 07/30/18 21:02 Abnormal lab findings: Abnormal lab results WBC 12.2 K/mcL (4.3-11.1) H 08/06/18 05:39 RBC 3.76 M/mcL (3.82-4.97) L 08/06/18 05:39 MCHC 31.4 g/dL (31.6-35.5) L 08/06/18 05:39 Neutrophils # 10.9 K/mcL (1.6-8.9) H 08/06/18 05:39 Lymphocytes # 0.4 K/mcL (0.6-4.6) L 08/06/18 05:39 ABG pCO2 58 mmHg (35-45) H 08/06/18 05:02 ABG pO2 83 mmHg (85-104) L 08/06/18 05:02 ABG HCO3 30 mEq/L (21-27) H 08/06/18 05:02 ABG Total CO2 32 mEq/L (20-26) H 08/06/18 05:02 BUN 44 mg/dL (8-23) H 08/06/18 05:39 Creatinine 3.95 mg/dL (0.60-1.20) H 08/06/18 05:39 Est GFR ( Amer) 13 (> 60) L 08/06/18 05:39 Est GFR (Non-Af Amer) 11 (> 60) L 08/06/18 05:39 Glucose 106 mg/dL (70-105) H 08/06/18 05:39 POC Glucose 67 mg/dL (70-99) L 08/04/18 17:01 Calculated Osmolality 302 (280-300) H 08/06/18 05:39 Calcium 11.0 mg/dL (8.6-10.3) H 08/06/18 05:39 Phosphorus 8.8 mg/dL (2.7-4.5) H 08/06/18 05:39 Troponin I 0.97 ng/mL (< 0.04) H* 08/04/18 14:04 Serum Total Protein 5.6 g/dL (6.4-8.9) L 08/05/18 03:38 Albumin 3.2 g/dL (3.5-5.7) L 08/05/18 03:38 Fluid Appearance Cloudy (Clear) A 07/31/18 11:00 Nasal Screen MRSA (PCR) Positive (Negative) A 07/31/18 12:10 Staphylococcus sp PCR DETECTED (Not Detect) A 08/01/18 11:45 Staph aureus (PCR) DETECTED (Not Detect) A 08/01/18 11:45 mecA-Methicil Res Gene DETECTED (Not Detect) A 08/01/18 11:45 - Microbiology Findings Microbiology Findings: Microbiology, Last 48 Hours 07/30/18 21:02 Blood Culture - Final Peripheral Venipuncture Methicillin Resistant S.aureus - Clinical Findings Intake & Output: Intake & Output 08/05/18 08/06/18 08/06/18 23:59 07:59 15:59 Intake Total 0 / 0 154 / 154 Output Total 2600 / 2600 0 / 0 Balance -2600 / -2600 154 / 154 Weight 63.5 kg Consult Discharge Plan - Plan Referrals: Vladimir Chaidez MD [Primary Care Provider] -
--- NOTE | 2018-08-06 12:13 | Event Note ---
Date of Encounter: 08/06/18 Time of Encounter: 12:12 Nephrology Chart Review She last dialyzed yesterday (Tuesday) for an extra treatment and will plan for more HD tomorrow. Thank you.
[2018-08-06] MEDS: Artificial Tears SOLN 15 ML BOTTLE BOTH EYES SCH ×3 (12:33→20:15)
[2018-08-06] MEDS: *HR* Metoprolol 5 MG/5 ML VIAL IVP PRN (15:15)
[2018-08-06] MEDS: Acetylcysteine 10% 2 ML INHSOL IH SCH ×2 (15:27→21:02)
[2018-08-06] MEDS ORDERED: Amiodarone Premix 150 MG/100 ML BAG IVPB ONE (15:47)
[2018-08-06] MEDS: Amiodarone Premix 360 MG/200 ML BAG IVC SCH (16:18)
[2018-08-06] MEDS: MethylPREDNISolone 40 MG/ML VIAL IVP SCH (16:33)
[2018-08-06] MEDS: Chlorhexidine Rinse 15 ML MOUTHWASH MM SCH (20:15)
[2018-08-07] MEDS: MethylPREDNISolone 40 MG/ML VIAL IVP SCH ×4 (00:06→23:41)
[2018-08-07] MEDS: *HR* Metoprolol 5 MG/5 ML VIAL IVP SCH ×5 (00:06→23:40)
[2018-08-07] MEDS: Artificial Tears SOLN 15 ML BOTTLE BOTH EYES SCH ×7 (00:07→23:42)
[2018-08-07] MEDS: Nitroglycerin 25 MG/250 ML INFUS..BTL IVC SCH ×2 (00:07→23:40)
[2018-08-07] MEDS: Acetylcysteine 10% 2 ML INHSOL IH SCH ×4 (03:25→21:57)
[2018-08-07] MEDS: Ipratropium/Albuterol Neb 3 ML IH SCH ×4 (03:25→21:57)
[2018-08-07 03:35] LABS: Basophils % 0.1 %; Hematocrit 36.4 % (35.3-44.9); Hemoglobin 11.3 g/dL (11.5-15.4); Immature Granulocytes % 1.1 % (0-4); Lymphocytes # 0.1 K/mcL (0.6-4.6); Lymphocytes % 1.4 %; Mean Corpuscular Volume 99.7 fL (83.0-100.0); Mean Platelet Volume 11.2 fL (9.4-12.4); Monocytes # 0.2 K/mcL (0.0-1.3); Neutrophils # 8.3 K/mcL (1.6-8.9); Platelet Count 129 K/mcL (140-400); Red Blood Count 3.65 M/mcL (3.82-4.97); Red Cell Distribution Width 14.5 % (11.5-14.5); Segmented Neutrophils % 95.4 %
[2018-08-07 03:53] LABS: Magnesium 2.5 mg/dL (1.6-2.6); Phosphorous 12.2 mg/dL (2.7-4.5)
[2018-08-07 03:54] LABS: Calcium 10.9 mg/dL (8.6-10.3); Potassium 5.4 mEq/L (3.5-5.1)
[2018-08-07 04:12] LABS: Platelet Estimate Slight Decrease (Normal)
[2018-08-07 04:50] LABS: ABG Base Excess 0 mEq/L (-2 to 3); ABG HCO3 27 mEq/L (21-27); ABG Oxygen Saturation 99 % (95-98); ABG PCO2 58 mmHg (35-45); ABG PH 7.28 pH Units (7.32-7.45); ABG PO2 141 mmHg (85-104); ABG TCO2 29 mEq/L (20-26); Blood Gas Modality PRVC; Blood Gas PEEP 10 cm H2O; Blood Gas Respiration Rate 20; Blood Gas VT 400 cc
[2018-08-07] MEDS: Dexmedetomidine HCl 400 MCG/100 ML MLS IVC SCH ×2 (04:54→13:31)
[2018-08-07] MEDS: Piperacillin/Tazobactam 3.375 GM in 0.9 % Sodium Chloride Mini Bag 100 ML IVPB SCH (04:56)
[2018-08-07] MEDS: *HR* Heparin 5,000 UNIT/ML VIAL SQ SCH ×2 (04:57→17:51)
--- NOTE | 2018-08-07 06:44 | Pulmonology Progress Note ---
Addendum entered and electronically signed by Denice Strauss 08/07/18 17:05: Original Note: <Denice Strauss - Last Filed: 08/07/18 15:54> Time of Encounter: 06:44 Assessment and Plan (1) Acute and chronic respiratory failure with hypoxia Current Visit: Yes Status: Acute Returned to ICU due to increased WOB and chest pain. Was re-intubated on 08/06 Currently alert and oriented while intubated, will do a CPAP trial after dialysis and anticipate extubation tonight or tomorrow CXR 08/07 showed new right perihilar atelectasis with tube in place. Echo showed LVEF 65% with normal wall motion on 07/31 Bronchoscopy repeated 08/06 Vanc day 9, renally dosed. Levaquin and zosyn will be D/C'd Respiratory infectious panel and Mycoplasma antigen screen negative MRSA nasal swab positive Blood culture positive for MRSA on 08/01, cultures from 08/02 show no growth Legionella and Strep pneumo were considered but pt is anuric so these labs are unable to be done Continue abx as above - awaiting BAL culture results Steroids to Prednisone 40mg po daily Palliative Care consulted for goals of tx - consider tracheostomy for continued bronchoscopies vs DNI (2) Atrial fibrillation with RVR Current Visit: Yes Status: Chronic On 50mg Toprol XL at home Pt was restarted on cardizem drip once HR increased to the 140s but this did not decreased her HR. She was given a 10mg IV Lopressor dose which also did not decrease her HR and she became hypotensive. The cardizem drip was stopped and a loading dose of digoxin was ordered. Consider amiodarone for cardioversion if HR dose not improve. On heparin for DVT prophylaxis/anticoagulation (3) ESRD on dialysis Current Visit: Yes Status: Chronic Nephrology on board Dialysis MWF - dialysis today Per nephro - resume MWF dialysis schedule at this time (4) Acute exacerbation of chronic obstructive pulmonary disease (COPD) Current Visit: Yes Status: Acute Mucus plugging vs pneumonia Plan as #1 above (5) Positive blood culture Current Visit: Yes Status: Acute Gm+ cocci detected in BC obtained at 21:00 on 07/30/18 - MRSA positive Bronchoscopy and sputum cultures pending Continue Vanc day 9, DC'd zosyn and levaquin. (6) Elevated troponin Current Visit: Yes Status: Acute 1.55 on 08/02 --> 1.29 on 08/03 --> 0800 1.08 Likely NSTEMI Since downtrend was seen, no reason to follow (7) Hyperkalemia Current Visit: Yes Status: Chronic Was elevated at 6.5 on admission Improves after HD Has dialysis today Continue to monitor (8) DVT prophylaxis Current Visit: Yes Status: Acute SQ Heparin Subjective Principal diagnosis: ESRD Interval history: Pt was re-intubated yesterday due to respiratory failure. She received another bronchoscopy yesterday. She has had no events overnight. Zosyn day 9 today. HD today. She is arousable to voice and denies pain or complaints this am. Objective PUL Vital signs: Last Vital Signs Temp 97.7 F 08/07/18 03:48 Pulse 75 08/07/18 06:00 Resp 20 08/07/18 06:00 BP 106/49 08/07/18 06:00 Pulse Ox 95 08/07/18 06:00 General appearance: asleep, other (arousable to voice, follows commands) Eyes: nonicteric ENT: oropharynx dry Neck: supple Effort: normal Auscultation: bilateral: wheezes Cardiovascular: irregular rhythm (via auscultation) Gastrointestinal: soft, non-tender, non-distended Integumentary: normal Extremities: no edema, pulses normal Musculoskeletal: no deformities Ventilator Settings Ventilator Settings: Ventilator Settings, Last 8 Hours Ventilator Tidal Volume 400 Setting Ventilator Tidal Volume 400 Setting Ventilator Tidal Volume 400 Setting Ventilator Tidal Volume 400 Setting Ventilator Tidal Volume 400 Setting Ventilator Tidal Volume 400 Setting Ventilator Tidal Volume 400 Setting Ventilator Tidal Volume 400 Setting Ventilator Tidal Volume 400 Setting Ventilator Tidal Volume 400 Setting Ventilator Tidal Volume 400 Setting Ventilator Tidal Volume 400 Setting Ventilator Tidal Volume 400 Setting Ventilator Respiratory Rate 20 Setting Ventilator Respiratory Rate 20 Setting Ventilator Respiratory Rate 20 Setting Ventilator Respiratory Rate 20 Setting Ventilator Respiratory Rate 20 Setting Ventilator Respiratory Rate 20 Setting Ventilator Respiratory Rate 20 Setting Ventilator Respiratory Rate 20 Setting Ventilator Respiratory Rate 20 Setting Ventilator Respiratory Rate 20 Setting Ventilator Respiratory Rate 20 Setting Ventilator Respiratory Rate 20 Setting Ventilator Respiratory Rate 20 Setting Actual Respiratory Rate 20 Actual Respiratory Rate 20 Actual Respiratory Rate 20 Actual Respiratory Rate 20 Actual Respiratory Rate 20 Actual Respiratory Rate 20 Actual Respiratory Rate 20 Actual Respiratory Rate 20 Actual Respiratory Rate 20 Actual Respiratory Rate 25 Actual Respiratory Rate 20 Actual Respiratory Rate 20 Positive End Expiratory 10 Pressure Positive End Expiratory 10 Pressure Positive End Expiratory 10 Pressure Positive End Expiratory 10 Pressure Positive End Expiratory 10 Pressure Positive End Expiratory 10 Pressure Positive End Expiratory 10 Pressure Positive End Expiratory 10 Pressure Positive End Expiratory 10 Pressure Positive End Expiratory 10 Pressure Positive End Expiratory 10 Pressure Positive End Expiratory 10 Pressure Positive End Expiratory 10 Pressure Peak Inspiratory Airway 24 Pressure Peak Inspiratory Airway 24 Pressure Peak Inspiratory Airway 25 Pressure Peak Inspiratory Airway 26 Pressure Peak Inspiratory Airway 23 Pressure Peak Inspiratory Airway 26 Pressure Peak Inspiratory Airway 25 Pressure Peak Inspiratory Airway 25 Pressure Peak Inspiratory Airway 25 Pressure Peak Inspiratory Airway 25 Pressure Peak Inspiratory Airway 25 Pressure Peak Inspiratory Airway 24 Pressure Results - Laboratory Findings CBC and BMP: 08/07/18 03:11 08/07/18 03:11 ABG ABG pH 7.28 pH Units (7.32-7.45) L 08/07/18 04:47 ABG pCO2 58 mmHg (35-45) H 08/07/18 04:47 ABG pO2 141 mmHg (85-104) H 08/07/18 04:47 ABG O2 Saturation 99 % (95-98) H 08/07/18 04:47 PT/INR, D-dimer PT 10.0 Seconds (9.4-12.1) 07/30/18 21:02 Abnormal lab findings: Abnormal lab results RBC 3.65 M/mcL (3.82-4.97) L 08/07/18 03:11 Hgb 11.3 g/dL (11.5-15.4) L 08/07/18 03:11 MCHC 31.0 g/dL (31.6-35.5) L 08/07/18 03:11 Plt Count 129 K/mcL (140-400) L 08/07/18 03:11 Lymphocytes # 0.1 K/mcL (0.6-4.6) L 08/07/18 03:11 Platelet Estimate Slight Decrease (Normal) L 08/07/18 03:11 ABG pH 7.28 pH Units (7.32-7.45) L 08/07/18 04:47 ABG pCO2 58 mmHg (35-45) H 08/07/18 04:47 ABG pO2 141 mmHg (85-104) H 08/07/18 04:47 ABG Total CO2 29 mEq/L (20-26) H 08/07/18 04:47 ABG O2 Saturation 99 % (95-98) H 08/07/18 04:47 Potassium 5.4 mEq/L (3.5-5.1) H 08/07/18 03:11 Carbon Dioxide 20 mEq/L (23-29) L 08/07/18 03:11 BUN 69 mg/dL (8-23) H 08/07/18 03:11 Creatinine 5.52 mg/dL (0.60-1.20) H 08/07/18 03:11 Est GFR ( Amer) 9 (> 60) L 08/07/18 03:11 Est GFR (Non-Af Amer) 8 (> 60) L 08/07/18 03:11 Glucose 125 mg/dL (70-105) H 08/07/18 03:11 POC Glucose 111 mg/dL (70-99) H 08/06/18 22:56 Calculated Osmolality 312 (280-300) H 08/07/18 03:11 Calcium 10.9 mg/dL (8.6-10.3) H 08/07/18 03:11 Phosphorus 12.2 mg/dL (2.7-4.5) H 08/07/18 03:11 Troponin I 0.97 ng/mL (< 0.04) H* 08/04/18 14:04 Serum Total Protein 5.6 g/dL (6.4-8.9) L 08/05/18 03:38 Albumin 3.2 g/dL (3.5-5.7) L 08/05/18 03:38 Fluid Appearance Cloudy (Clear) A 07/31/18 11:00 Nasal Screen MRSA (PCR) Positive (Negative) A 07/31/18 12:10 Staphylococcus sp PCR DETECTED (Not Detect) A 08/01/18 11:45 Staph aureus (PCR) DETECTED (Not Detect) A 08/01/18 11:45 mecA-Methicil Res Gene DETECTED (Not Detect) A 08/01/18 11:45 - Microbiology Findings Microbiology Findings: Microbiology, Last 48 Hours 08/01/18 11:45 Blood Culture - Final Peripheral Venipuncture No growth. Final report. - Clinical Findings Intake & Output: Intake & Output 08/06/18 08/06/18 08/07/18 15:59 23:59 07:59 Intake Total 200 / 200 216 / 216 100 / 100 Output Total 0 / 0 Balance 200 / 200 216 / 216 100 / 100 Weight 61.36 kg Consult Discharge Plan - Plan Referrals: Vladimir Chaidez MD [Primary Care Provider] - <Delon Lazo W - Last Filed: 08/07/18 16:51> Date of Encounter: 08/07/18 Objective PUL Vital signs: Last Vital Signs Temp 98.0 F 08/07/18 08:00 Pulse 75 08/07/18 08:00 Resp 20 08/07/18 08:00 BP 130/55 08/07/18 08:00 Pulse Ox 95 08/07/18 08:00 Ventilator Settings Ventilator Settings: Ventilator Settings, Last 8 Hours Ventilator Tidal Volume 400 Setting Ventilator Tidal Volume 400 Setting Ventilator Tidal Volume 400 Setting Ventilator Tidal Volume 400 Setting Ventilator Tidal Volume 400 Setting Ventilator Tidal Volume 400 Setting Ventilator Tidal Volume 400 Setting Ventilator Tidal Volume 400 Setting Ventilator Tidal Volume 400 Setting Ventilator Tidal Volume 400 Setting Ventilator Tidal Volume 400 Setting Ventilator Tidal Volume 400 Setting Ventilator Tidal Volume 400 Setting Ventilator Respiratory Rate 20 Setting Ventilator Respiratory Rate 20 Setting Ventilator Respiratory Rate 20 Setting Ventilator Respiratory Rate 20 Setting Ventilator Respiratory Rate 20 Setting Ventilator Respiratory Rate 20 Setting Ventilator Respiratory Rate 20 Setting Ventilator Respiratory Rate 20 Setting Ventilator Respiratory Rate 20 Setting Ventilator Respiratory Rate 20 Setting Ventilator Respiratory Rate 20 Setting Ventilator Respiratory Rate 20 Setting Ventilator Respiratory Rate 20 Setting Actual Respiratory Rate 20 Actual Respiratory Rate 20 Actual Respiratory Rate 20 Actual Respiratory Rate 20 Actual Respiratory Rate 20 Actual Respiratory Rate 20 Actual Respiratory Rate 20 Actual Respiratory Rate 20 Actual Respiratory Rate 20 Actual Respiratory Rate 20 Actual Respiratory Rate 20 Actual Respiratory Rate 20 Positive End Expiratory 10 Pressure Positive End Expiratory 10 Pressure Positive End Expiratory 10 Pressure Positive End Expiratory 10 Pressure Positive End Expiratory 10 Pressure Positive End Expiratory 10 Pressure Positive End Expiratory 10 Pressure Positive End Expiratory 10 Pressure Positive End Expiratory 10 Pressure Positive End Expiratory 10 Pressure Positive End Expiratory 10 Pressure Positive End Expiratory 10 Pressure Positive End Expiratory 10 Pressure Peak Inspiratory Airway 24 Pressure Peak Inspiratory Airway 25 Pressure Peak Inspiratory Airway 24 Pressure Peak Inspiratory Airway 24 Pressure Peak Inspiratory Airway 24 Pressure Peak Inspiratory Airway 25 Pressure Peak Inspiratory Airway 26 Pressure Peak Inspiratory Airway 23 Pressure Peak Inspiratory Airway 26 Pressure Peak Inspiratory Airway 25 Pressure Peak Inspiratory Airway 25 Pressure Peak Inspiratory Airway 25 Pressure Results - Laboratory Findings CBC and BMP: 08/07/18 03:11 08/07/18 03:11 ABG ABG pH 7.28 pH Units (7.32-7.45) L 08/07/18 04:47 ABG pCO2 58 mmHg (35-45) H 08/07/18 04:47 ABG pO2 141 mmHg (85-104) H 08/07/18 04:47 ABG O2 Saturation 99 % (95-98) H 08/07/18 04:47 PT/INR, D-dimer PT 10.0 Seconds (9.4-12.1) 07/30/18 21:02 Abnormal lab findings: Abnormal lab results RBC 3.65 M/mcL (3.82-4.97) L 08/07/18 03:11 Hgb 11.3 g/dL (11.5-15.4) L 08/07/18 03:11 MCHC 31.0 g/dL (31.6-35.5) L 08/07/18 03:11 Plt Count 129 K/mcL (140-400) L 08/07/18 03:11 Lymphocytes # 0.1 K/mcL (0.6-4.6) L 08/07/18 03:11 Platelet Estimate Slight Decrease (Normal) L 08/07/18 03:11 ABG pH 7.28 pH Units (7.32-7.45) L 08/07/18 04:47 ABG pCO2 58 mmHg (35-45) H 08/07/18 04:47 ABG pO2 141 mmHg (85-104) H 08/07/18 04:47 ABG Total CO2 29 mEq/L (20-26) H 08/07/18 04:47 ABG O2 Saturation 99 % (95-98) H 08/07/18 04:47 Potassium 5.4 mEq/L (3.5-5.1) H 08/07/18 03:11 Carbon Dioxide 20 mEq/L (23-29) L 08/07/18 03:11 BUN 69 mg/dL (8-23) H 08/07/18 03:11 Creatinine 5.52 mg/dL (0.60-1.20) H 08/07/18 03:11 Est GFR ( Amer) 9 (> 60) L 08/07/18 03:11 Est GFR (Non-Af Amer) 8 (> 60) L 08/07/18 03:11 Glucose 125 mg/dL (70-105) H 08/07/18 03:11 POC Glucose 111 mg/dL (70-99) H 08/06/18 22:56 Calculated Osmolality 312 (280-300) H 08/07/18 03:11 Calcium 10.9 mg/dL (8.6-10.3) H 08/07/18 03:11 Phosphorus 12.2 mg/dL (2.7-4.5) H 08/07/18 03:11 Troponin I 0.97 ng/mL (< 0.04) H* 08/04/18 14:04 Serum Total Protein 5.6 g/dL (6.4-8.9) L 08/05/18 03:38 Albumin 3.2 g/dL (3.5-5.7) L 08/05/18 03:38 Fluid Appearance Cloudy (Clear) A 07/31/18 11:00 Nasal Screen MRSA (PCR) Positive (Negative) A 07/31/18 12:10 Staphylococcus sp PCR DETECTED (Not Detect) A 08/01/18 11:45 Staph aureus (PCR) DETECTED (Not Detect) A 08/01/18 11:45 mecA-Methicil Res Gene DETECTED (Not Detect) A 08/01/18 11:45 - Microbiology Findings Microbiology Findings: Microbiology, Last 48 Hours 08/01/18 11:45 Blood Culture - Final Peripheral Venipuncture No growth. Final report. - Clinical Findings Intake & Output: Intake & Output 08/06/18 08/07/18 08/07/18 23:59 07:59 15:59 Intake Total 216 / 216 180 / 180 Output Total 0 / 0 Balance 216 / 216 180 / 180 Weight 61.36 kg - Attending Attestation I examined this patient and my medical decision-making was reviewed with the Resident Physician. I agree with the documented findings, disposition and treatment plan as described except to the extent set forth below. We independently had [id number] contact with the patient Patient seen and examined at bedside Labs, radiology, chart personally reviewed. Management was reviewed during multidisciplinary critical care rounds. HOME ENERGY INSPECTOR: Patient awake and alert she is on sedation for the vent which is being titrated down for likely extubation Pulm: Acute on chronic hypoxic hypercapnic respiratory failure secondary to severe tracheobronchomalacia with frequent mucous plugging acceptable gas exchange today CPAP trial planned Likely extubate the patient after dialysis. I am unclear about the long-term plan with regards to her frequent intubations may need to consider goals of care with palliative that is no further intubation versus the possibility of tracheostomy placement. Cont Pulmonary Hygiene Cards: Blood pressure stable she has a history of heart failure with preserved ejection fraction volume removal with dialysis GI: GI prophylaxis given Nutrition: Nothing by mouth for now while on vent if failed CPAP trial with the give enteral nutrition per dietary recommendations Renal: ESRD nephrology following plan for dialysis today UOP Monitored, Cont to Trend sCr and monitor Electrolytes. ID: MRSA bacteremia patients on antimicrobials ID following Heme/Onc: DVT prophylaxis given Endo: Glucose Monitored Integ/MSK: Skin Care per routine ICU Nursing Protocol to prevent ulcers. Lines: All lines examined without evidence of infection : Dispo: Remain in ICU for ventilator need CODE: Full
[2018-08-07] MEDS ORDERED: 0.9 % Sodium Chloride 250 ML IVC PRN (06:52)
[2018-08-07] MEDS: Chlorhexidine Rinse 15 ML MOUTHWASH MM SCH ×2 (07:35→19:58)
[2018-08-07] MEDS: Pantoprazole 40 MG VIAL IVP SCH (07:35)
[2018-08-07] MEDS: Levofloxacin 500 MG/100 ML 500 MG/100 ML BAG IVPB SCH (07:36)
[2018-08-07] MEDS ORDERED: *HR* Heparin 5,000 UNIT/ML VIAL ONE (09:19)
[2018-08-07] MEDS: Budesonide/Formoterol 160/4.5 1 PUFF INH IH SCH ×2 (09:35→21:57)
--- NOTE | 2018-08-07 10:05 | Infectious Disease Progress No ---
Date of Encounter: 08/07/18 Time of Encounter: 08:55 - Assessment and Plan (1) Sepsis Current Visit: Yes Status: Acute The patient had two sepsis criteria on admission. Likely secondary to MRSA bacteremia and pneumonia. Improved. WBC normalized. Tachycardia improved. Afebrile. Peripheral blood cultures drawn 07/30/18 are positive 2/2 sets for MRSA. Repeat blood cultures drawn 08/01/18 are positive 1/2 sets. Repeat blood cultures drawn 08/02/18 are NGTD x 2 sets. Qualifiers: Sepsis type: methicillin resistant Staphylococcus aureus Qualified Code(s): A41.02 - Sepsis due to Methicillin resistant Staphylococcus aureus (2) Bacteremia Current Visit: Yes Status: Acute Causative organism: MRSA. Source: Unclear, but possibly PNA although her BAL cultures are negative vs. AV fistula although no clinical evidence of cellulitis. Peripheral blood cultures drawn 07/30/18 are positive 2/2 sets for MRSA. Repeat blood cultures drawn 08/01/18 are positive 1/2 sets. Repeat blood cultures drawn 08/02/18 are NGTD x 2 sets. Complicated due to the lack of identified source. No hardware/pacemaker or evidence of metastatic infection. 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 No endocarditis stigmata noted on exam. TTE was suboptimal due to poor windows, but negative for vegetations. She will likely need a [place] prior to discharge. Await repeat blood cultures to finalize. Check rhuematoid factor.--> <10. Continue Vancomycin IV. Pharmacy to dose. Goal trough ~15. Duration of treatment depends on the clinical picture. Monitor labs for drug toxicity and dose-adjust antibiotics. (3) HCAP (healthcare-associated pneumonia) Current Visit: No Status: Acute Location: LUP, RML, RLL per bronchoscopy. Causative organism: Unclear. The patient has had multiple bronchoscopies in the past with previous cultures positive for Aspergillus fumigatus (05/03/18), Stenotrophomonas maltophilia (03/28/18), MRSA (02/17/18), and Serratia marcescens (11/25/17). CXR and CT chest findings noted and reviewed. Status post bronchoscopy 07/31/18 that showed mucupurulent secretions and mucous plugging. BAL cultures are no growth. Pathology/cytology pending. RIP negative. Strep pneumo and Legionella UATs were not collected since the patient is anuric secondary to ESRD. Repeat CXR 08/03/18 showed mild hazy bibasilar opacities consistent with pleural effusion and partial atelectasis. Continue Vancomycin IV. Pharmacy to dose. Goal trough ~15. Continue Levaquin 500mg IV Q48H since it will cover previous organisms found on BAL. (day 9) Continue Zosyn 3.375 grams IV Q12H. (day 5) Duration of treatment depends on the clinical picture. Monitor labs and for drug toxicity and dose-adjust antibiotics. (4) Acute exacerbation of chronic obstructive airways disease Current Visit: No Status: Acute Likely contributing to the patient's acute respiratory failure. Supportive care per the primary and pulmonology teams. (5) Acute and chronic respiratory failure with hypoxia Current Visit: Yes Status: Acute Likely multifactorial: pneumonia + COPD exacerbation + fluid volume overload. Intubated 07/30/18. Extubated 07/31/18. Re-intubated 08/06/18. Further management per the pulmonary team. (6) Elevated troponin Current Visit: Yes Status: Acute Etiology unclear. Cadiology consulted. Further workup and management per the primary team. (7) Pulmonary edema Current Visit: No Status: Acute Qualifiers: Chronicity: acute Qualified Code(s): J81.0 - Acute pulmonary edema (8) COPD (chronic obstructive pulmonary disease) Current Visit: Yes Status: Chronic Qualifiers: COPD type: COPD with acute exacerbation Qualified Code(s): J44.1 - Chronic obstructive pulmonary disease with (acute) exacerbation (9) HTN (hypertension) Current Visit: No Status: Chronic Qualifiers: Hypertension type: essential hypertension Qualified Code(s): I10 - Essential (primary) hypertension (10) ESRD on dialysis Current Visit: Yes Status: Chronic Nephrology consulted and following. 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 - Subjective Interval history: Patient seen and examined. Weekend notes reviewed. Moved to ICU on Tuesday. Intubated 08/06/18. Status post bronchoscopy that showed mucous plugging. Patient awake and alert on the vent. Follows commands and answers questions appropriately. Denies pain, shortness of breath, or nausea. No new issues per nursing. Infect Dis PN-Objective Data - Labs CBC & Chem 7: 08/07/18 03:11 08/07/18 03:11 Labs: Laboratory Results - last 24 hr 08/06/18 08/06/18 08/07/18 15:04 22:56 03:11 WBC 8.7 RBC 3.65 L Hgb 11.3 L Hct 36.4 MCV 99.7 MCH 31.0 MCHC 31.0 L RDW 14.5 Plt Count 129 L MPV 11.2 Immature Gran % 1.1 Seg Neutrophils % 95.4 Lymphocytes % 1.4 Monocytes % 2.0 Eosinophils % 0.0 Basophils % 0.1 Neutrophils # 8.3 Lymphocytes # 0.1 L Monocytes # 0.2 Eosinophils # 0.0 Basophils # 0.0 Platelet Estimate Slight Decrease L Sample Site ABG pH ABG pCO2 ABG pO2 ABG HCO3 ABG Total CO2 ABG O2 Saturation ABG Base Excess Ge Test Respiration Rate O2 Delivery Device Blood Gas Modality Inspired O2 Tidal Volume PEEP Sodium Potassium Chloride Carbon Dioxide BUN Creatinine Est GFR ( Amer) Est GFR (Non-Af Amer) BUN/Creatinine Ratio Glucose POC Glucose 95 111 H Calculated Osmolality Calcium Phosphorus Magnesium 08/07/18 08/07/18 08/07/18 03:11 03:11 04:47 WBC RBC Hgb Hct MCV MCH MCHC RDW Plt Count MPV Immature Gran % Seg Neutrophils % Lymphocytes % Monocytes % Eosinophils % Basophils % Neutrophils # Lymphocytes # Monocytes # Eosinophils # Basophils # Platelet Estimate Sample Site R Radial ABG pH 7.28 L ABG pCO2 58 H ABG pO2 141 H ABG HCO3 27 ABG Total CO2 29 H ABG O2 Saturation 99 H ABG Base Excess 0 Ge Test Positive Respiration Rate 20 O2 Delivery Device Adult Vent Blood Gas Modality PRVC Inspired O2 60.0 Tidal Volume 400 PEEP 10 Sodium 140 Potassium 5.4 H Chloride 99 Carbon Dioxide 20 L BUN 69 H Creatinine 5.52 H Est GFR ( Amer) 9 L Est GFR (Non-Af Amer) 8 L BUN/Creatinine Ratio 13 Glucose 125 H POC Glucose Calculated Osmolality 312 H Calcium 10.9 H Phosphorus 12.2 H Magnesium 2.5 Cultures: Cultures 08/01/18 11:45 Blood Culture - Final Peripheral Venipuncture No growth. Final report. 07/30/18 21:02 Blood Culture - Final Peripheral Venipuncture Methicillin Resistant S.aureus 07/31/18 10:57 Legionella Culture - Final Left Upper Lobe Lung 07/31/18 11:00 Legionella Culture - Final Right Middle Lobe Lung 08/01/18 11:45 Blood Culture - Final Peripheral Venipuncture Methicillin Resistant S.aureus 07/31/18 05:30 Sputum Culture - Final Sputum 07/31/18 10:57 Respiratory Culture - Final Left Upper Lobe Lung 07/31/18 11:00 Respiratory Culture - Final Right Middle Lobe Lung 08/02/18 14:24 Blood Culture - Preliminary Peripheral Venipuncture Culture is incubating and being continuously monitored for growth. Final report to follow. 08/02/18 14:23 Blood Culture - Preliminary Peripheral Venipuncture Culture is incubating and being continuously monitored for growth. Final report to follow. 07/30/18 21:02 Blood Culture - Final Peripheral Venipuncture Methicillin Resistant S.aureus 07/31/18 11:00 Acid Fast Stain - Final Right Middle Lobe Lung 07/31/18 10:57 Acid Fast Stain - Final Left Upper Lobe Lung Serology 08/01/18 07/31/18 07/31/18 Range/Units 11:45 12:10 12:10 Fluid Source Fluid Volume mL Fluid Appearance (Clear) Fluid RBC Fld Tot Nucleated Cell Fluid Seg Neutrophil % % Fld Band Neutrophil % Fluid Lymphocytes % Fluid Monocytes % Fluid Eosinophils % Fluid Basophils % Fluid Other Cells % % Nasal Screen MRSA (PCR) Positive A (Negative) A. baumannii (PCR) Not Detected (Not Detect) Chlamy pneumoniae PCR Not Detected (Not Detect) Adenovirus (PCR) Not Detected (Not Detect) B. pertussis DNA (PCR) Not Detected (Not Detect) B.parapertussis DNA PCR Not Detected (Not Detect) Priyanka albicans (PCR) Not Detected (Not Detect) C. glabrata (PCR) Not Detected (Not Detect) C. krusei (PCR) Not Detected (Not Detect) C. parapsilosis (PCR) Not Detected (Not Detect) C. tropicalis (PCR) Not Detected (Not Detect) Coronavirus OC43 (PCR) Not Detected (Not Detect) Coronavirus HKU1 (PCR) Not Detected (Not Detect) Coronavirus 229E (PCR) Not Detected (Not Detect) Coronavirus NL63 (PCR) Not Detected (Not Detect) Enterobacteriac sp PCR Not Detected (Not Detect) E. cloacae complex PCR Not Detected (Not Detect) Enterococcus sp PCR Not Detected (Not Detect) E. coli (PCR) Not Detected (Not Detect) H. influenzae (PCR) Not Detected (Not Detect) Hep Bs Antigen (Nonreactive) Hep Bs Antibody mIU/mL Human Metapneumovir PCR Not Detected (Not Detect) Influenza A (H1) PCR Not Detected (Not Detect) Influ A (H1N1/09) PCR Not Detected (Not Detect) Influenza A (H3) PCR Not Detected (Not Detect) Influenza A Untype (PCR) Not Detected (Not Detect) Influenza Type B (PCR) Not Detected (Not Detect) Klebsiella oxytoca PCR Not Detected (Not Detect) Klebsiella pneumoniae Not Detected (Not Detect) List. monocytogenes PCR Not Detected (Not Detect) Mycoplasma pneumon IgG (<=0.09) U/L Mycoplasma pneumon IgM (<=0.76) U/L M.pneumoniae DNA (PCR) Not Detected (Not Detect) N. meningitidis (PCR) Not Detected (Not Detect) Parainfluenza 1 (PCR) Not Detected (Not Detect) Parainfluenza 2 (PCR) Not Detected (Not Detect) Parainfluenza 3 (PCR) Not Detected (Not Detect) Parainfluenza 4 (PCR) Not Detected (Not Detect) Proteus species (PCR) Not Detected (Not Detect) RSV (PCR) Not Detected (Not Detect) Entero/Rhino (PCR) Not Detected (Not Detect) Serratia marcescens PCR Not Detected (Not Detect) Staphylococcus sp PCR DETECTED A (Not Detect) Staph aureus (PCR) DETECTED A (Not Detect) mecA-Methicil Res Gene DETECTED A (Not Detect) Streptococcus sp PCR Not Detected (Not Detect) Group A Strep DNA Not Detected (Not Detect) Group B Strep (PCR) Not Detected (Not Detect) Strep pneumoniae (PCR) Not Detected (Not Detect) P. aeruginosa (PCR) Not Detected (Not Detect) Sydney/B-Vanco Res Genes N/A (Not Detect) KPC (blaKPC) Detect PCR N/A (Not Detect) 07/31/18 07/31/18 07/31/18 Range/Units 11:00 10:57 08:37 Fluid Source right middle lobe keegan left upper lobe lung Fluid Volume 17 16 mL Fluid Appearance Cloudy A Cloudy A (Clear) Fluid RBC TNP TNP Fld Tot Nucleated Cell TNP TNP Fluid Seg Neutrophil % 84.6 92.3 % Fld Band Neutrophil % TNP TNP Fluid Lymphocytes % TNP TNP Fluid Monocytes % TNP TNP Fluid Eosinophils % TNP TNP Fluid Basophils % TNP TNP Fluid Other Cells % 15.4 7.7 % Nasal Screen MRSA (PCR) (Negative) A. baumannii (PCR) (Not Detect) Chlamy pneumoniae PCR (Not Detect) Adenovirus (PCR) (Not Detect) B. pertussis DNA (PCR) (Not Detect) B.parapertussis DNA PCR (Not Detect) Priyanka albicans (PCR) (Not Detect) C. glabrata (PCR) (Not Detect) C. krusei (PCR) (Not Detect) C. parapsilosis (PCR) (Not Detect) C. tropicalis (PCR) (Not Detect) Coronavirus OC43 (PCR) (Not Detect) Coronavirus HKU1 (PCR) (Not Detect) Coronavirus 229E (PCR) (Not Detect) Coronavirus NL63 (PCR) (Not Detect) Enterobacteriac sp PCR (Not Detect) E. cloacae complex PCR (Not Detect) Enterococcus sp PCR (Not Detect) E. coli (PCR) (Not Detect) H. influenzae (PCR) (Not Detect) Hep Bs Antigen (Nonreactive) Hep Bs Antibody mIU/mL Human Metapneumovir PCR (Not Detect) Influenza A (H1) PCR (Not Detect) Influ A (H1N1/09) PCR (Not Detect) Influenza A (H3) PCR (Not Detect) Influenza A Untype (PCR) (Not Detect) Influenza Type B (PCR) (Not Detect) Klebsiella oxytoca PCR (Not Detect) Klebsiella pneumoniae (Not Detect) List. monocytogenes PCR (Not Detect) Mycoplasma pneumon IgG 0.04 (<=0.09) U/L Mycoplasma pneumon IgM 0.05 (<=0.76) U/L M.pneumoniae DNA (PCR) (Not Detect) N. meningitidis (PCR) (Not Detect) Parainfluenza 1 (PCR) (Not Detect) Parainfluenza 2 (PCR) (Not Detect) Parainfluenza 3 (PCR) (Not Detect) Parainfluenza 4 (PCR) (Not Detect) Proteus species (PCR) (Not Detect) RSV (PCR) (Not Detect) Entero/Rhino (PCR) (Not Detect) Serratia marcescens PCR (Not Detect) Staphylococcus sp PCR (Not Detect) Staph aureus (PCR) (Not Detect) mecA-Methicil Res Gene (Not Detect) Streptococcus sp PCR (Not Detect) Group A Strep DNA (Not Detect) Group B Strep (PCR) (Not Detect) Strep pneumoniae (PCR) (Not Detect) P. aeruginosa (PCR) (Not Detect) Sydney/B-Vanco Res Genes (Not Detect) KPC (blaKPC) Detect PCR (Not Detect) 07/30/18 07/30/18 Range/Units 21:02 17:51 Fluid Source Fluid Volume mL Fluid Appearance (Clear) Fluid RBC Fld Tot Nucleated Cell Fluid Seg Neutrophil % % Fld Band Neutrophil % Fluid Lymphocytes % Fluid Monocytes % Fluid Eosinophils % Fluid Basophils % Fluid Other Cells % % Nasal Screen MRSA (PCR) (Negative) A. baumannii (PCR) Not Detected (Not Detect) Chlamy pneumoniae PCR (Not Detect) Adenovirus (PCR) (Not Detect) B. pertussis DNA (PCR) (Not Detect) B.parapertussis DNA PCR (Not Detect) Priyanka albicans (PCR) Not Detected (Not Detect) C. glabrata (PCR) Not Detected (Not Detect) C. krusei (PCR) Not Detected (Not Detect) C. parapsilosis (PCR) Not Detected (Not Detect) C. tropicalis (PCR) Not Detected (Not Detect) Coronavirus OC43 (PCR) (Not Detect) Coronavirus HKU1 (PCR) (Not Detect) Coronavirus 229E (PCR) (Not Detect) Coronavirus NL63 (PCR) (Not Detect) Enterobacteriac sp PCR Not Detected (Not Detect) E. cloacae complex PCR Not Detected (Not Detect) Enterococcus sp PCR Not Detected (Not Detect) E. coli (PCR) Not Detected (Not Detect) H. influenzae (PCR) Not Detected (Not Detect) Hep Bs Antigen Nonreactive (Nonreactive) Hep Bs Antibody 1.25 mIU/mL Human Metapneumovir PCR (Not Detect) Influenza A (H1) PCR (Not Detect) Influ A (H1N1/09) PCR (Not Detect) Influenza A (H3) PCR (Not Detect) Influenza A Untype (PCR) (Not Detect) Influenza Type B (PCR) (Not Detect) Klebsiella oxytoca PCR Not Detected (Not Detect) Klebsiella pneumoniae Not Detected (Not Detect) List. monocytogenes PCR Not Detected (Not Detect) Mycoplasma pneumon IgG (<=0.09) U/L Mycoplasma pneumon IgM (<=0.76) U/L M.pneumoniae DNA (PCR) (Not Detect) N. meningitidis (PCR) Not Detected (Not Detect) Parainfluenza 1 (PCR) (Not Detect) Parainfluenza 2 (PCR) (Not Detect) Parainfluenza 3 (PCR) (Not Detect) Parainfluenza 4 (PCR) (Not Detect) Proteus species (PCR) Not Detected (Not Detect) RSV (PCR) (Not Detect) Entero/Rhino (PCR) (Not Detect) Serratia marcescens PCR Not Detected (Not Detect) Staphylococcus sp PCR DETECTED A (Not Detect) Staph aureus (PCR) DETECTED A (Not Detect) mecA-Methicil Res Gene DETECTED A (Not Detect) Streptococcus sp PCR Not Detected (Not Detect) Group A Strep DNA Not Detected (Not Detect) Group B Strep (PCR) Not Detected (Not Detect) Strep pneumoniae (PCR) Not Detected (Not Detect) P. aeruginosa (PCR) Not Detected (Not Detect) Sydney/B-Vanco Res Genes Not Detected (Not Detect) KPC (blaKPC) Detect PCR Not Detected (Not Detect) - Impressions Impressions Chest X-Ray 08/07/18 06:43 IMPRESSION: 1. Endotracheal tube remains in stable position. 2. New right perihilar atelectasis. D/ / 08/07/2018 07:19:59 Jude Cook MD / [facility] Interpreting Provider: Jude Cook MD Exam - Constitutional Vitals: Temp Pulse Resp BP Pulse Ox 98.0 F 75 20 130/55 95 08/07/18 08:00 08/07/18 10:00 08/07/18 10:00 08/07/18 10:00 08/07/18 10:00 General appearance: average body habitus, cooperative, no acute distress - Head Head exam: Present: atraumatic, normal inspection, normocephalic - Eye Eye exam: Present: EOMI, normal appearance, PERRL Pupils: Present: normal accommodation Additional comments: No subconjunctival hemorrhage noted. - ENT ENT exam: Present: mucous membranes moist - Neck Neck exam: Present: normal inspection - Respiratory Respiratory exam: Present: CTAB. Absent: rales, respiratory distress, rhonchi, wheezes - Cardiovascular Cardiovascular exam: Present: RRR, +S1, +S2 - GI/Abdominal GI/Abdominal exam: Present: normal bowel sounds, soft. Absent: distended, tenderness Additional comments: OG tube to LIWS. - Extremities Exam Extremities exam: Absent: joint swelling, normal inspection (Extensive bruising noted to the BUE. AV fistula noted to the LUE +/+. ), pedal edema, tenderness - Neurological Exam Neurological exam: Present: alert, oriented X3, no focal deficits - Psychiatric Psychiatric exam: Present: normal affect, normal mood - Skin Skin exam: Present: dry, intact, normal color, warm Additional comments: No endocarditis stigmata noted. Consult Discharge Plan - Plan Referrals: Vladimir Chaidez MD [Primary Care Provider] - - Attending Attestation I examined this patient and my medical decision-making was reviewed with the Resident Physician. I agree with the documented findings, disposition and treatment plan as described except to the extent set forth below.
[2018-08-07] MEDS: *HR* Metoprolol 5 MG/5 ML VIAL IVP PRN (11:24)
[2018-08-07] MEDS: Levothyroxine Sodium 100 MCG VIAL IVP SCH (11:26)
[2018-08-07] MEDS ORDERED: Vancomycin 500 MG in 0.9 % Sodium Chloride Mini Bag 100 ML IVPB ONE (14:00)
--- NOTE | 2018-08-07 14:12 | Nephrology Progress Note ---
Date of Encounter: 08/07/18 Time of Encounter: 11:00 - Assessment and Plan (1) ESRD on dialysis Current Visit: Yes Status: Chronic Patient has ESRD on dialysis, primarily with UF due to ongoing acute respiratory failure I&O: [id number] Plan: -Patient is to have HD today -Renal dose medications -avoid nephrotoxic agents -strict IO (2) Anemia in chronic kidney disease (CKD) Current Visit: No Status: Chronic Anemia of chronic disease in setting of CKD hemoglobin 11.3 stable no obvious active bleeding goal hemoglobin 10-11 -Continue to monitor Qualifiers: Chronic kidney disease stage: on chronic dialysis Qualified Code(s): N18.6 - End stage renal disease; D63.1 - Anemia in chronic kidney disease; D63.1 - Anemia in chronic kidney disease; Z99.2 - Dependence on renal dialysis; Z99.2 - Dependence on renal dialysis; Z99.2 - Dependence on renal dialysis; Z99.2 - Dependence on renal dialysis (3) Hyperkalemia Current Visit: Yes Status: Chronic Recurrent Acute on chronic hyperkalemia. Potassium 5.4 -Recommend a renal diet that is low in potassium whenever her diet is resumed. -Will received dialysis today to manage (4) Hyperphosphatemia Current Visit: No Status: Chronic Hyperphosphatemia that is recurrent and acute on chronic. phosphate 12.2 -recommend a renal diet that is low in phosphate when a diet is resumed -will receive dialysis today to manage -home medication does consist of a phosphate binder Sevelamar. May resume if it does not improve. (5) HTN (hypertension) Current Visit: No Status: Chronic Hypertension -currently stable with IV Lopressor and hydralazine Qualifiers: Hypertension type: essential hypertension Qualified Code(s): I10 - Essential (primary) hypertension (6) Acute and chronic respiratory failure Current Visit: No Status: Acute Acute chronic respiratory failure requiring mechanical ventilation -management per primary team Qualifiers: Respiratory failure complication: hypoxia Qualified Code(s): J96.21 - Acute and chronic respiratory failure with hypoxia Subjective Principal diagnosis: ESRD Interval history: Upon my examination patient was undergoing dialysis. Objective - Vital Signs Vital signs: Vital Signs Temp Pulse Resp BP Pulse Ox 08/07/18 13:05 97.7 F 20 110/89 08/07/18 13:00 148 21 104/87 100 08/07/18 12:45 95/64 10/29/18 12:30 105/83 08/07/18 12:15 98/72 08/07/18 12:00 97.9 F 144 22 89/66 99 08/07/18 11:45 108/66 08/07/18 11:30 87/60 08/07/18 11:21 20 124/102 98 08/07/18 11:15 98/77 08/07/18 11:00 86 20 124/102 95 08/07/18 10:45 133/65 08/07/18 10:30 121/60 08/07/18 10:15 128/65 08/07/18 10:00 98.4 F 75 20 121/61 95 08/07/18 09:39 20 130/55 97 08/07/18 09:00 75 20 115/55 95 08/07/18 08:00 98.0 F 75 20 130/55 95 08/07/18 07:21 20 127/58 96 08/07/18 07:00 75 20 127/58 95 08/07/18 06:00 75 20 106/49 95 08/07/18 05:20 20 117/59 95 08/07/18 05:00 76 20 117/59 96 08/07/18 04:00 76 20 115/57 96 08/07/18 03:48 97.7 F 08/07/18 03:25 20 113/61 97 08/07/18 03:00 68 20 113/61 96 08/07/18 02:00 70 20 107/55 97 08/07/18 01:15 20 116/56 96 08/07/18 01:00 72 20 116/56 97 08/07/18 00:00 76 20 125/54 99 08/06/18 23:30 96.4 F L 08/06/18 23:23 20 127/57 100 08/06/18 23:00 81 20 127/57 98 08/06/18 22:00 75 21 108/50 97 08/06/18 21:02 20 122/50 95 08/06/18 21:00 70 20 108/48 95 08/06/18 20:12 98.8 F 08/06/18 20:00 72 20 121/70 96 08/06/18 19:30 20 97/64 97 08/06/18 19:00 74 20 100/62 98 08/06/18 18:00 77 30 107/61 82 08/06/18 17:59 20 107/61 76 08/06/18 17:00 78 30 103/60 82 08/06/18 16:22 20 98/57 94 08/06/18 16:00 77 20 98/57 82 08/06/18 15:00 98.8 F 117 20 111/71 100 Intake and Output 08/06/18 08/07/18 08/07/18 23:59 07:59 15:59 Intake Total 216 / 216 180 / 180 704.5 / 704.5 Output Total 0 / 0 1286 / 1286 Balance 216 / 216 180 / 180 -581.5 / -581.5 Intake: IV Fluids 216 / 216 180 / 180 104.5 / 104.5 Cardizem 50 MG In 0.9 % Sodium 2.5 / 2.5 Chloride 40 ML @ 5 MG/HR 5 mls/ hr IVC .Q10H [facility] Rx#:[id number] FentaNYL (PF) 1,000 MCG In 0.9 20 / 20 80 / 80 % Sodium Chloride 80 ML @ 50 MCG/HR 5 mls/hr IVC CONT [facility] Rx #:[id number] Nitroglycerin Premix 25 MG/250 196 / 196 ML 25 mg In 250 ml @ 5 MCG/MIN 3 mls/hr IVC .Q24H [facility] Rx#: [id number] Diprivan 1,000 mg In 100 ml @ 5 80 / 80 22 / 22 MCG/KG/MIN 1.905 mls/hr IVC . Q24H [facility] Rx#:[id number] Zosyn 3.375 GM In 0.9 % Sodium 100 / 100 Chloride (Mini-Bag +) 100 ML @ 25 mls/hr IVPB 0500,1700 [facility] Rx #:[id number] Oral 0 / 0 0 / 0 Intake, Rinseback and Flushes 600 / 600 Output: Urine 0 / 0 0 / 0 Total Dialysis (HD) Output 1286 / 1286 Other: Stool Size Smear Stool Color Brown # Bowel Movements 1 Weight 61.36 kg Blood Glucose* 111 115 Hemodialysis Net Fluid Removed 186 (mL) - General Appearance General appearance: Present: appears started age, chronically ill, sedated on ventilator, intubated, frail EENT: Present: mucous membranes dry Neck: Present: supple Respiratory: Present: clear (Anteriorly) Cardiology: Present: no edema, regular rate, normal S1, normal S2 Dialysis Vascular Access: Arteriovenous Fistula Gastrointestinal: Present: normoactive bowel sounds Integumentary: Present: ecchymotic Neurologic: Present: no focal deficit, no asterixis Musculoskeletal: Present: no clubbing - Lab 08/07/18 03:11 08/07/18 03:11 Most recent lab results ABG pH 7.28 pH Units (7.32-7.45) L 08/07/18 04:47 ABG pCO2 58 mmHg (35-45) H 08/07/18 04:47 ABG pO2 141 mmHg (85-104) H 08/07/18 04:47 ABG HCO3 27 mEq/L (21-27) 08/07/18 04:47 ABG O2 Saturation 99 % (95-98) H 08/07/18 04:47 Calcium 10.9 mg/dL (8.6-10.3) H 08/07/18 03:11 Phosphorus 12.2 mg/dL (2.7-4.5) H 08/07/18 03:11 Magnesium 2.5 mg/dL (1.6-2.6) 08/07/18 03:11 Consult Discharge Plan - Plan Referrals: Vladimir Chaidez MD [Primary Care Provider] -
[2018-08-07] MEDS ORDERED: *HR* Metoprolol 5 MG/5 ML VIAL IVP ONE (15:10)
[2018-08-07] MEDS ORDERED: *HR* Digoxin 0.5 MG/2 ML AMPUL IVP ONE ×2 (15:21→16:00)
--- NOTE | 2018-08-07 16:04 | Palliative Progress Note ---
Date of Encounter: 08/07/18 Time of Encounter: 16:00 - Assessment and plan (1) Goals of care, counseling/discussion Current Visit: Yes Status: Acute Assessment and plan: Meeting held with pt , Benny, 2 sons and daughter re: goals of care. Dr. Lazo attended and discussed pt clinical situation. Discussed that she could continue to be treated as now, could have tracheostomy, or transition to comfort care/hospice. Family aware that hospice would entail discontinuation of dialysis, and she would pass within a few weeks. Family verbalized understanding and emotional support given. did discuss how her quality of life has been affected by her current health problems and dialysis, and further measures such as trach would make it difficult to be cared for at home. Ultimately, they verbalized the patient would be making this decision, however, she is not hemodynamically stable this afternoon with high heart rate and hypotension. She is currently DNRCC-Arrest. Will continue to follow as assist as needed. (2) ESRD on dialysis Current Visit: Yes Status: Chronic Assessment and plan: Patient of 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 Pulmonology knows patient well and is managing in ICU. - Time Spent With Patient Total time spent is greater than 50% in coordination of care (as documented) at patient's floor/unit and/or counseling patient: - Subjective Interval history: Patient awake and alert. Tachycardia today - was on cardizem but developed hypotension. Tolerated HD earlier. Denies pain. Does nod her head she is having some anxiety. Family here but not present in room during my visit. - Constitutional Vitals: Abnormal lab results RBC 3.65 M/mcL (3.82-4.97) L 08/07/18 03:11 Hgb 11.3 g/dL (11.5-15.4) L 08/07/18 03:11 MCHC 31.0 g/dL (31.6-35.5) L 08/07/18 03:11 Plt Count 129 K/mcL (140-400) L 08/07/18 03:11 Lymphocytes # 0.1 K/mcL (0.6-4.6) L 08/07/18 03:11 Platelet Estimate Slight Decrease (Normal) L 08/07/18 03:11 ABG pH 7.28 pH Units (7.32-7.45) L 08/07/18 04:47 ABG pCO2 58 mmHg (35-45) H 08/07/18 04:47 ABG pO2 141 mmHg (85-104) H 08/07/18 04:47 ABG Total CO2 29 mEq/L (20-26) H 08/07/18 04:47 ABG O2 Saturation 99 % (95-98) H 08/07/18 04:47 Potassium 5.4 mEq/L (3.5-5.1) H 08/07/18 03:11 Carbon Dioxide 20 mEq/L (23-29) L 08/07/18 03:11 BUN 69 mg/dL (8-23) H 08/07/18 03:11 Creatinine 5.52 mg/dL (0.60-1.20) H 08/07/18 03:11 Est GFR ( Amer) 9 (> 60) L 08/07/18 03:11 Est GFR (Non-Af Amer) 8 (> 60) L 08/07/18 03:11 Glucose 125 mg/dL (70-105) H 08/07/18 03:11 POC Glucose 111 mg/dL (70-99) H 08/06/18 22:56 Calculated Osmolality 312 (280-300) H 08/07/18 03:11 Calcium 10.9 mg/dL (8.6-10.3) H 08/07/18 03:11 Phosphorus 12.2 mg/dL (2.7-4.5) H 08/07/18 03:11 Troponin I 0.97 ng/mL (< 0.04) H* 08/04/18 14:04 Serum Total Protein 5.6 g/dL (6.4-8.9) L 08/05/18 03:38 Albumin 3.2 g/dL (3.5-5.7) L 08/05/18 03:38 Fluid Appearance Cloudy (Clear) A 07/31/18 11:00 Nasal Screen MRSA (PCR) Positive (Negative) A 07/31/18 12:10 Staphylococcus sp PCR DETECTED (Not Detect) A 08/01/18 11:45 Staph aureus (PCR) DETECTED (Not Detect) A 08/01/18 11:45 mecA-Methicil Res Gene DETECTED (Not Detect) A 08/01/18 11:45 General appearance: Present: no acute distress - Respiratory Additional comments: Rhonchi noted bilateral anteriorally. Remains on vent - Cardiovascular Cardiovascular exam: Present: +S1, +S2, tachycardia - GI/Abdominal GI/Abdominal exam: Present: normal bowel sounds, soft - Extremities Exam Extremities exam: Present: normal capillary refill, normal inspection - Neurological Exam Neurological exam: Present: alert, strengths equal and symetr throughout Additional comments: Shakes head "yes/no" to questions. follows commands. - Skin Skin exam: Present: dry, pallor, warm Palliative Quality Palliative Quality: Screen for Code Status: Yes, Screen for Goals of Care: Yes, Screen for Pain: Yes, If Pain Regimen Started, Initiate Bowel Regimen: NA, Screen for Nausea/Vomitting: Yes Code Status: 07/30/18 20:37 CODE [Resuscitation Status: Active] [RES] Routine Comment: Resuscitation Status: Full Code 08/04/18 15:45 DNR [Resuscitation Status: Active] [RES] Routine Comment: Resuscitation Status: DNR-Comfort Care-Arrest - Labs CBC & Chem 7: 08/07/18 03:11 08/07/18 03:11 Labs: Laboratory Results - last 24 hr 08/06/18 08/06/18 08/07/18 15:04 22:56 03:11 WBC 8.7 RBC 3.65 L Hgb 11.3 L Hct 36.4 MCV 99.7 MCH 31.0 MCHC 31.0 L RDW 14.5 Plt Count 129 L MPV 11.2 Immature Gran % 1.1 Seg Neutrophils % 95.4 Lymphocytes % 1.4 Monocytes % 2.0 Eosinophils % 0.0 Basophils % 0.1 Neutrophils # 8.3 Lymphocytes # 0.1 L Monocytes # 0.2 Eosinophils # 0.0 Basophils # 0.0 Platelet Estimate Slight Decrease L Sample Site ABG pH ABG pCO2 ABG pO2 ABG HCO3 ABG Total CO2 ABG O2 Saturation ABG Base Excess Ge Test Respiration Rate O2 Delivery Device Blood Gas Modality Inspired O2 Tidal Volume PEEP Sodium Potassium Chloride Carbon Dioxide BUN Creatinine Est GFR ( Amer) Est GFR (Non-Af Amer) BUN/Creatinine Ratio Glucose POC Glucose 95 111 H Calculated Osmolality Calcium Phosphorus Magnesium 08/07/18 08/07/18 08/07/18 03:11 03:11 04:47 WBC RBC Hgb Hct MCV MCH MCHC RDW Plt Count MPV Immature Gran % Seg Neutrophils % Lymphocytes % Monocytes % Eosinophils % Basophils % Neutrophils # Lymphocytes # Monocytes # Eosinophils # Basophils # Platelet Estimate Sample Site R Radial ABG pH 7.28 L ABG pCO2 58 H ABG pO2 141 H ABG HCO3 27 ABG Total CO2 29 H ABG O2 Saturation 99 H ABG Base Excess 0 Ge Test Positive Respiration Rate 20 O2 Delivery Device Adult Vent Blood Gas Modality PRVC Inspired O2 60.0 Tidal Volume 400 PEEP 10 Sodium 140 Potassium 5.4 H Chloride 99 Carbon Dioxide 20 L BUN 69 H Creatinine 5.52 H Est GFR ( Amer) 9 L Est GFR (Non-Af Amer) 8 L BUN/Creatinine Ratio 13 Glucose 125 H POC Glucose Calculated Osmolality 312 H Calcium 10.9 H Phosphorus 12.2 H Magnesium 2.5 - Impressions Impressions Chest X-Ray 08/07/18 06:43 IMPRESSION: 1. Endotracheal tube remains in stable position. 2. New right perihilar atelectasis. D/ / 08/07/2018 07:19:59 Jude Cook MD / [facility] Interpreting Provider: Jude Cook MD - ABG Interpretation ABG results: ABG ABG pH 7.28 pH Units (7.32-7.45) L 08/07/18 04:47 ABG pCO2 58 mmHg (35-45) H 08/07/18 04:47 ABG pO2 141 mmHg (85-104) H 08/07/18 04:47 ABG O2 Saturation 99 % (95-98) H 08/07/18 04:47 PT/INR, D-dimer PT 10.0 Seconds (9.4-12.1) 07/30/18 21:02 Consult Discharge Plan - Plan Referrals: Vladimir Chaidez MD [Primary Care Provider] -
[2018-08-07] MEDS: Amiodarone Premix 360 MG/200 ML BAG IVC SCH (16:06)
[2018-08-07] MEDS: Phenylephrine 10 MG in D5% in Water 250 ML IVC SCH (17:23)
[2018-08-07] MEDS ORDERED: *HR* Digoxin 0.5 MG/2 ML AMPUL IVP SCH (18:30)
[2018-08-07] MEDS: FentaNYL (PF) 1,000 MCG in 0.9 % Sodium Chloride 80 ML IVC SCH (19:00)
[2018-08-07] MEDS ORDERED: Amiodarone Premix 360 MG/200 ML BAG IVC ONE (21:56)
[2018-08-07] MEDS: *HR* Digoxin 0.5 MG/2 ML AMPUL IVP SCH (22:17)
[2018-08-08] MEDS: *HR* Digoxin 0.5 MG/2 ML AMPUL IVP SCH (03:25)
[2018-08-08] MEDS: Dexmedetomidine HCl 400 MCG/100 ML MLS IVC SCH (03:25)
[2018-08-08] MEDS: Artificial Tears SOLN 15 ML BOTTLE BOTH EYES SCH ×6 (03:32→23:39)
[2018-08-08] MEDS: Ipratropium/Albuterol Neb 3 ML IH SCH ×4 (03:41→22:22)
[2018-08-08] MEDS: Acetylcysteine 10% 2 ML INHSOL IH SCH ×4 (03:41→22:22)
[2018-08-08 03:48] LABS: Basophils % 0.1 %; Hematocrit 33.8 % (35.3-44.9); Hemoglobin 10.6 g/dL (11.5-15.4); Immature Granulocytes % 1.1 % (0-4); Lymphocytes # 0.1 K/mcL (0.6-4.6); Mean Corpuscular HGB Conc 31.4 g/dL (31.6-35.5); Mean Corpuscular Hemoglobin 30.6 pg (28.0-33.3); Mean Corpuscular Volume 97.7 fL (83.0-100.0); Mean Platelet Volume 11.1 fL (9.4-12.4); Monocytes # 0.2 K/mcL (0.0-1.3); Monocytes % 2.9 %; Neutrophils # 7.4 K/mcL (1.6-8.9); Platelet Count 133 K/mcL (140-400); Red Blood Count 3.46 M/mcL (3.82-4.97); Red Cell Distribution Width 14.5 % (11.5-14.5); Segmented Neutrophils % 94.9 %
[2018-08-08 04:07] LABS: Albumin/Globulin Ratio 1.1 (1.1-2.2); Bilirubin,Total 0.6 mg/dL (0.3-1.0); Calcium 10.8 mg/dL (8.6-10.3); Globulin 2.7 g/dL (2.4-3.5); Magnesium 2.2 mg/dL (1.6-2.6); Phosphorous 8.6 mg/dL (2.7-4.5); Potassium 4.3 mEq/L (3.5-5.1); Total Protein 5.7 g/dL (6.4-8.9)
[2018-08-08 05:27] LABS: Platelet Estimate Slight Decrease (Normal)
[2018-08-08] MEDS: Amiodarone Premix 360 MG/200 ML BAG IVC SCH ×3 (05:34→23:00)
[2018-08-08] MEDS: *HR* Heparin 5,000 UNIT/ML VIAL SQ SCH ×2 (05:34→18:17)
[2018-08-08] MEDS: *HR* Metoprolol 5 MG/5 ML VIAL IVP SCH ×4 (05:35→23:39)
[2018-08-08 05:57] LABS: ABG Base Excess 6 mEq/L (-2 to 3); ABG HCO3 32 mEq/L (21-27); ABG Oxygen Saturation 100 % (95-98); ABG PCO2 54 mmHg (35-45); ABG PH 7.39 pH Units (7.32-7.45); ABG PO2 173 mmHg (85-104); ABG TCO2 34 mEq/L (20-26); Blood Gas Modality ASSIST CONTROL; Blood Gas PEEP 10 cm H2O; Blood Gas Respiration Rate 20; Blood Gas VT 400 cc
--- NOTE | 2018-08-08 06:41 | Pulmonology Progress Note ---
<Delon Lazo W - Last Filed: 08/08/18 10:01> Objective PUL Vital signs: Last Vital Signs Temp 98.0 F 08/08/18 07:00 Pulse 83 08/08/18 08:00 Resp 20 08/08/18 08:17 BP 182/127 08/08/18 08:17 Pulse Ox 98 08/08/18 08:17 Ventilator Settings Ventilator Settings: Ventilator Settings, Last 8 Hours Ventilator Tidal Volume 400 Setting Ventilator Tidal Volume 400 Setting Ventilator Tidal Volume 400 Setting Ventilator Tidal Volume 400 Setting Ventilator Tidal Volume 400 Setting Ventilator Tidal Volume 400 Setting Ventilator Tidal Volume 400 Setting Ventilator Tidal Volume 400 Setting Ventilator Tidal Volume 400 Setting Ventilator Tidal Volume 400 Setting Ventilator Tidal Volume 400 Setting Ventilator Tidal Volume 400 Setting Ventilator Tidal Volume 400 Setting Ventilator Respiratory Rate 20 Setting Ventilator Respiratory Rate 20 Setting Ventilator Respiratory Rate 20 Setting Ventilator Respiratory Rate 20 Setting Ventilator Respiratory Rate 20 Setting Ventilator Respiratory Rate 20 Setting Ventilator Respiratory Rate 20 Setting Ventilator Respiratory Rate 20 Setting Ventilator Respiratory Rate 20 Setting Ventilator Respiratory Rate 20 Setting Ventilator Respiratory Rate 20 Setting Ventilator Respiratory Rate 20 Setting Ventilator Respiratory Rate 20 Setting Actual Respiratory Rate 20 Actual Respiratory Rate 20 Actual Respiratory Rate 21 Actual Respiratory Rate 20 Actual Respiratory Rate 20 Actual Respiratory Rate 20 Actual Respiratory Rate 20 Actual Respiratory Rate 23 Actual Respiratory Rate 20 Actual Respiratory Rate 20 Actual Respiratory Rate 20 Actual Respiratory Rate 20 Positive End Expiratory 10 Pressure Positive End Expiratory 10 Pressure Positive End Expiratory 10 Pressure Positive End Expiratory 10 Pressure Positive End Expiratory 10 Pressure Positive End Expiratory 10 Pressure Positive End Expiratory 10 Pressure Positive End Expiratory 10 Pressure Positive End Expiratory 10 Pressure Positive End Expiratory 10 Pressure Positive End Expiratory 10 Pressure Positive End Expiratory 10 Pressure Positive End Expiratory 10 Pressure Peak Inspiratory Airway 24 Pressure Peak Inspiratory Airway 24 Pressure Peak Inspiratory Airway 25 Pressure Peak Inspiratory Airway 26 Pressure Peak Inspiratory Airway 26 Pressure Peak Inspiratory Airway 24 Pressure Peak Inspiratory Airway 24 Pressure Peak Inspiratory Airway 10 Pressure Peak Inspiratory Airway 24 Pressure Peak Inspiratory Airway 24 Pressure Peak Inspiratory Airway 27 Pressure Peak Inspiratory Airway 25 Pressure Results - Laboratory Findings CBC and BMP: 08/08/18 03:36 08/08/18 03:36 ABG ABG pH 7.39 pH Units (7.32-7.45) 08/08/18 05:53 ABG pCO2 54 mmHg (35-45) H 08/08/18 05:53 ABG pO2 173 mmHg (85-104) H 08/08/18 05:53 ABG O2 Saturation 100 % (95-98) H 08/08/18 05:53 PT/INR, D-dimer PT 10.0 Seconds (9.4-12.1) 07/30/18 21:02 Abnormal lab findings: Abnormal lab results RBC 3.46 M/mcL (3.82-4.97) L 08/08/18 03:36 Hgb 10.6 g/dL (11.5-15.4) L 08/08/18 03:36 Hct 33.8 % (35.3-44.9) L 08/08/18 03:36 MCHC 31.4 g/dL (31.6-35.5) L 08/08/18 03:36 Plt Count 133 K/mcL (140-400) L 08/08/18 03:36 Lymphocytes # 0.1 K/mcL (0.6-4.6) L 08/08/18 03:36 Platelet Estimate Slight Decrease (Normal) L 08/08/18 03:36 ABG pCO2 54 mmHg (35-45) H 08/08/18 05:53 ABG pO2 173 mmHg (85-104) H 08/08/18 05:53 ABG HCO3 32 mEq/L (21-27) H 08/08/18 05:53 ABG Total CO2 34 mEq/L (20-26) H 08/08/18 05:53 ABG O2 Saturation 100 % (95-98) H 08/08/18 05:53 ABG Base Excess 6 mEq/L (-2 to 3) H 08/08/18 05:53 Chloride 97 mEq/L (98-107) L 08/08/18 03:36 BUN 41 mg/dL (8-23) H 08/08/18 03:36 Creatinine 3.54 mg/dL (0.60-1.20) H 08/08/18 03:36 Est GFR ( Amer) 15 (> 60) L 08/08/18 03:36 Est GFR (Non-Af Amer) 13 (> 60) L 08/08/18 03:36 Glucose 151 mg/dL (70-105) H 08/08/18 03:36 POC Glucose 115 mg/dL (70-99) H 08/07/18 12:08 Calculated Osmolality 303 (280-300) H 08/08/18 03:36 Calcium 10.8 mg/dL (8.6-10.3) H 08/08/18 03:36 Phosphorus 8.6 mg/dL (2.7-4.5) H 08/08/18 03:36 Troponin I 0.97 ng/mL (< 0.04) H* 08/04/18 14:04 Serum Total Protein 5.7 g/dL (6.4-8.9) L 08/08/18 03:36 Albumin 3.0 g/dL (3.5-5.7) L 08/08/18 03:36 Fluid Appearance Cloudy (Clear) A 07/31/18 11:00 Nasal Screen MRSA (PCR) Positive (Negative) A 07/31/18 12:10 Staphylococcus sp PCR DETECTED (Not Detect) A 08/01/18 11:45 Staph aureus (PCR) DETECTED (Not Detect) A 08/01/18 11:45 mecA-Methicil Res Gene DETECTED (Not Detect) A 08/01/18 11:45 - Microbiology Findings Microbiology Findings: Microbiology, Last 48 Hours 07/31/18 10:57 Legionella Culture - Final Left Upper Lobe Lung Legionella Culture - Preliminary 07/31/18 11:00 Legionella Culture - Final Right Middle Lobe Lung Legionella Culture - Preliminary 08/02/18 14:24 Blood Culture - Final Peripheral Venipuncture No growth. Final report. 08/02/18 14:23 Blood Culture - Final Peripheral Venipuncture No growth. Final report. 08/01/18 11:45 Blood Culture - Final Peripheral Venipuncture No growth. Final report. - Clinical Findings Intake & Output: Intake & Output 08/07/18 08/08/18 08/08/18 23:59 07:59 15:59 Intake Total 34.6 / 34.6 337.2 / 337.2 Balance 34.6 / 34.6 337.2 / 337.2 Weight 62.1 kg Consult Discharge Plan - Plan Referrals: Vladimir Chaidez MD [Primary Care Provider] - - Attending Attestation I examined this patient and my medical decision-making was reviewed with the Resident Physician. I agree with the documented findings, disposition and treatment plan as described except to the extent set forth below. We independently had [id number] contact with the patient Patient seen and examined at bedside Labs, radiology, chart personally reviewed. Management was reviewed during multidisciplinary critical care rounds. PACKING INSPECTOR: The patient is awake and alert able to follow commands Pulm: Acute on chronic respiratory failure with underlying COPD and tracheal br onchomalacia complicated by recurrent intubation for mucus plugging plan for CPAP trial today and asked the patient Cards: Went into A. fib with RVR yesterday loaded with digoxin and then cardizem gtt needed to be loaded with amiodarone subsequently and has since converted that put the liberation attempt from the ventilator on hold we will increase her dose of beta azeem today GI: Continue GI prophylaxis Nutrition: Nothing by mouth for now Renal: UOP Monitored, Cont to Trend sCr and monitor Electrolytes. ID: Continue treatment for MRSA bacteremia ID following Heme/Onc: Continue DVT prophylaxis Endo: Glucose Monitored Integ/MSK: Skin Care per routine ICU Nursing Protocol to prevent ulcers. Lines: All lines examined without evidence of infection : Dispo: Remain in ICU for vent management CODE: DNAR I had an extensive conversation with the patient's next of kin/power of admitted attorneys her along with her 3 adult children and palliative care service regarding goals of care once patient is liberated from that we will be able to discuss with her overall prognosis is very poor and would be consideration of hospice versus permanent tracheostomy placement <Denice Strauss R - Last Filed: 08/08/18 16:41> Date of Encounter: 08/08/18 Time of Encounter: 06:41 Assessment and Plan (1) Acute and chronic respiratory failure with hypoxia Current Visit: Yes Status: Acute Returned to ICU due to increased WOB and chest pain. Was re-intubated on 08/06 Plan is to extubate today (08/08) - pt wishes to be re-intubated if she cannot tolerate extubation so that she may have a conversation with Dr. Lazo about end of care goals CXR 08/08 persistent right perihilar atelectasis and infiltrate. Echo showed LVEF 65% with normal wall motion on 07/31 Bronchoscopy repeated 08/06 Vanc day 10, renally dosed. Levaquin and zosyn were D/C'd Respiratory infectious panel and Mycoplasma antigen screen negative MRSA nasal swab positive Blood culture positive for MRSA on 08/01, cultures from 08/02 show no growth Legionella and Strep pneumo were considered but pt is anuric so these labs are unable to be done Continue abx as above - ID following Steroids to Prednisone 40mg po daily Palliative Care consulted for goals of tx - consider tracheostomy for continued bronchoscopies vs DNI - will have discussion about goals of tx with family at bedside later today (2) Atrial fibrillation with RVR Current Visit: Yes Status: Chronic On 50mg Toprol XL at home Pt converted to NSR at 0400 today. Continue Lopressor 10mg q6H with amiodarone drip. Dig loading dose was given. Cardizem drip is ordered and can give if necessary for repeated SVT On heparin for DVT prophylaxis/anticoagulation (3) ESRD on dialysis Current Visit: Yes Status: Chronic Nephrology on board Dialysis MWF - dialysis yesterday Per nephro - resume MWF dialysis schedule at this time (4) Acute exacerbation of chronic obstructive pulmonary disease (COPD) Current Visit: Yes Status: Acute Mucus plugging vs pneumonia Plan as #1 above (5) Positive blood culture Current Visit: Yes Status: Acute Gm+ cocci detected in BC obtained on 08/01/18 - MRSA positive Bronchoscopy and sputum cultures pending Continue Vanc day 10, DC'd zosyn and levaquin. (6) Elevated troponin Current Visit: Yes Status: Acute 1.55 on 08/02 --> 1.29 on 08/03 --> 0800 1.08 Likely NSTEMI Since downtrend was seen, no reason to follow (7) Hyperkalemia Current Visit: Yes Status: Chronic Was elevated at 6.5 on admission Improves after HD Has dialysis MWF Continue to monitor (8) Hypothyroidism Current Visit: Yes Status: Chronic P was restarted on half normal levothyroxine dose yesterday second dose given today Will hold and convert to PO tomorrow pending successful extubation Qualifiers: Hypothyroidism type: unspecified Qualified Code(s): E03.9 - Hypothyroidism, unspecified (9) DVT prophylaxis Current Visit: Yes Status: Acute SQ Heparin Subjective Principal diagnosis: ESRD Interval history: Pt is alert and ready to be extubated today. She denies any complaints. We will have a bedside conversation with family today about further goals of care later today once the patient is extubated. 1630 - Pt was extubated and alert. She still seems slightly confused but is without complaints. She requested to go home today and there was a discussion about possibly initiating hospice care, which will be continued tomorrow once she is more aware and her is here. Objective PUL Vital signs: Last Vital Signs Temp 98.4 F 08/08/18 03:57 Pulse 70 08/08/18 06:00 Resp 20 08/08/18 06:07 BP 160/72 08/08/18 06:07 Pulse Ox 100 08/08/18 06:07 General appearance: no acute distress, alert Eyes: nonicteric ENT: oropharynx dry Neck: supple Effort: normal Auscultation: bilateral: wheezes Cardiovascular: regular rate and rhythm Gastrointestinal: soft, non-tender, non-distended Integumentary: other (dry skin on lips, large purple bruise on left arm near BP cuff) Extremities: no cyanosis, no edema, pulses normal Musculoskeletal: no deformities affect normal Ventilator Settings Ventilator Settings: Ventilator Settings, Last 8 Hours Ventilator Tidal Volume 400 Setting Ventilator Tidal Volume 400 Setting Ventilator Tidal Volume 400 Setting Ventilator Tidal Volume 400 Setting Ventilator Tidal Volume 400 Setting Ventilator Tidal Volume 400 Setting Ventilator Tidal Volume 400 Setting Ventilator Tidal Volume 400 Setting Ventilator Tidal Volume 400 Setting Ventilator Tidal Volume 400 Setting Ventilator Tidal Volume 400 Setting Ventilator Tidal Volume 400 Setting Ventilator Tidal Volume 400 Setting Ventilator Respiratory Rate 20 Setting Ventilator Respiratory Rate 20 Setting Ventilator Respiratory Rate 20 Setting Ventilator Respiratory Rate 20 Setting Ventilator Respiratory Rate 20 Setting Ventilator Respiratory Rate 20 Setting Ventilator Respiratory Rate 20 Setting Ventilator Respiratory Rate 20 Setting Ventilator Respiratory Rate 20 Setting Ventilator Respiratory Rate 20 Setting Ventilator Respiratory Rate 20 Setting Ventilator Respiratory Rate 20 Setting Ventilator Respiratory Rate 20 Setting Actual Respiratory Rate 20 Actual Respiratory Rate 20 Actual Respiratory Rate 20 Actual Respiratory Rate 20 Actual Respiratory Rate 23 Actual Respiratory Rate 20 Actual Respiratory Rate 20 Actual Respiratory Rate 20 Actual Respiratory Rate 20 Actual Respiratory Rate 20 Actual Respiratory Rate 20 Actual Respiratory Rate 20 Positive End Expiratory 10 Pressure Positive End Expiratory 10 Pressure Positive End Expiratory 10 Pressure Positive End Expiratory 10 Pressure Positive End Expiratory 10 Pressure Positive End Expiratory 10 Pressure Positive End Expiratory 10 Pressure Positive End Expiratory 10 Pressure Positive End Expiratory 10 Pressure Positive End Expiratory 10 Pressure Positive End Expiratory 10 Pressure Positive End Expiratory 10 Pressure Positive End Expiratory 10 Pressure Peak Inspiratory Airway 26 Pressure Peak Inspiratory Airway 26 Pressure Peak Inspiratory Airway 24 Pressure Peak Inspiratory Airway 24 Pressure Peak Inspiratory Airway 10 Pressure Peak Inspiratory Airway 24 Pressure Peak Inspiratory Airway 24 Pressure Peak Inspiratory Airway 27 Pressure Peak Inspiratory Airway 25 Pressure Peak Inspiratory Airway 24 Pressure Peak Inspiratory Airway 24 Pressure Peak Inspiratory Airway 23 Pressure Results - Laboratory Findings CBC and BMP: 08/08/18 03:36 08/08/18 03:36 ABG ABG pH 7.39 pH Units (7.32-7.45) 08/08/18 05:53 ABG pCO2 54 mmHg (35-45) H 08/08/18 05:53 ABG pO2 173 mmHg (85-104) H 08/08/18 05:53 ABG O2 Saturation 100 % (95-98) H 08/08/18 05:53 PT/INR, D-dimer PT 10.0 Seconds (9.4-12.1) 07/30/18 21:02 Abnormal lab findings: Abnormal lab results RBC 3.46 M/mcL (3.82-4.97) L 08/08/18 03:36 Hgb 10.6 g/dL (11.5-15.4) L 08/08/18 03:36 Hct 33.8 % (35.3-44.9) L 08/08/18 03:36 MCHC 31.4 g/dL (31.6-35.5) L 08/08/18 03:36 Plt Count 133 K/mcL (140-400) L 08/08/18 03:36 Lymphocytes # 0.1 K/mcL (0.6-4.6) L 08/08/18 03:36 Platelet Estimate Slight Decrease (Normal) L 08/08/18 03:36 ABG pCO2 54 mmHg (35-45) H 08/08/18 05:53 ABG pO2 173 mmHg (85-104) H 08/08/18 05:53 ABG HCO3 32 mEq/L (21-27) H 08/08/18 05:53 ABG Total CO2 34 mEq/L (20-26) H 08/08/18 05:53 ABG O2 Saturation 100 % (95-98) H 08/08/18 05:53 ABG Base Excess 6 mEq/L (-2 to 3) H 08/08/18 05:53 Chloride 97 mEq/L (98-107) L 08/08/18 03:36 BUN 41 mg/dL (8-23) H 08/08/18 03:36 Creatinine 3.54 mg/dL (0.60-1.20) H 08/08/18 03:36 Est GFR ( Amer) 15 (> 60) L 08/08/18 03:36 Est GFR (Non-Af Amer) 13 (> 60) L 08/08/18 03:36 Glucose 151 mg/dL (70-105) H 08/08/18 03:36 POC Glucose 115 mg/dL (70-99) H 08/07/18 12:08 Calculated Osmolality 303 (280-300) H 08/08/18 03:36 Calcium 10.8 mg/dL (8.6-10.3) H 08/08/18 03:36 Phosphorus 8.6 mg/dL (2.7-4.5) H 08/08/18 03:36 Troponin I 0.97 ng/mL (< 0.04) H* 08/04/18 14:04 Serum Total Protein 5.7 g/dL (6.4-8.9) L 08/08/18 03:36 Albumin 3.0 g/dL (3.5-5.7) L 08/08/18 03:36 Fluid Appearance Cloudy (Clear) A 07/31/18 11:00 Nasal Screen MRSA (PCR) Positive (Negative) A 07/31/18 12:10 Staphylococcus sp PCR DETECTED (Not Detect) A 08/01/18 11:45 Staph aureus (PCR) DETECTED (Not Detect) A 08/01/18 11:45 mecA-Methicil Res Gene DETECTED (Not Detect) A 08/01/18 11:45 - Microbiology Findings Microbiology Findings: Microbiology, Last 48 Hours 08/02/18 14:24 Blood Culture - Final Peripheral Venipuncture No growth. Final report. 08/02/18 14:23 Blood Culture - Final Peripheral Venipuncture No growth. Final report. 08/01/18 11:45 Blood Culture - Final Peripheral Venipuncture No growth. Final report. - Clinical Findings Intake & Output: Intake & Output 08/07/18 08/07/18 08/08/18 15:59 23:59 07:59 Intake Total 808.3 / 808.3 34.6 / 34.6 337.2 / 337.2 Output Total 1286 / 1286 Balance -477.7 / -477.7 34.6 / 34.6 337.2 / 337.2 Weight 62.1 kg
[2018-08-08] MEDS: Levothyroxine Sodium 100 MCG VIAL IVP SCH (08:17)
[2018-08-08] MEDS: Pantoprazole 40 MG VIAL IVP SCH (08:17)
[2018-08-08] MEDS: Chlorhexidine Rinse 15 ML MOUTHWASH MM SCH ×2 (08:17→19:40)
[2018-08-08] MEDS: MethylPREDNISolone 40 MG/ML VIAL IVP SCH ×3 (08:17→23:39)
--- NOTE | 2018-08-08 09:29 | Nephrology Progress Note ---
Date of Encounter: 08/08/18 Time of Encounter: 09:10 - Assessment and Plan (1) ESRD on dialysis Current Visit: Yes Status: Chronic Patient has ESRD on dialysis, primarily with UF due to ongoing acute respiratory failure. She has dialysis on Mondays, Wednesdays, Fridays. I&O: 1022/1286 she is unable to complete a full HD session yesterday Plan: -patient have HD tomorrow -Renal dose medications -avoid nephrotoxic agents -strict IO (2) Anemia in chronic kidney disease (CKD) Current Visit: No Status: Chronic Anemia of chronic disease in setting of CKD hemoglobin 10.6 stable no obvious active bleeding goal hemoglobin 10-11 -Continue to monitor Qualifiers: Chronic kidney disease stage: on chronic dialysis Qualified Code(s): N18.6 - End stage renal disease; D63.1 - Anemia in chronic kidney disease; D63.1 - Anemia in chronic kidney disease; Z99.2 - Dependence on renal dialysis; Z99.2 - Dependence on renal dialysis; Z99.2 - Dependence on renal dialysis; Z99.2 - Dependence on renal dialysis (3) Hyperkalemia Current Visit: Yes Status: Chronic Recurrent Acute on chronic hyperkalemia. Potassium 4.3 -Recommend a renal diet that is low in potassium whenever her diet is resumed. -Will received dialysis today to manage (4) Hyperphosphatemia Current Visit: No Status: Chronic Hyperphosphatemia that is recurrent and acute on chronic. This is likely secondary to ESRD. phosphate 8.6 (yesterday 12.2) -Will order a parathyroid hormone, 25 vitamin D, ionized calcium level to evaluate the hypercalcemia and hyperphosphatemia -will continue home sevelamar -recommend a renal diet that is low in phosphate when a diet is resumed (5) HTN (hypertension) Current Visit: No Status: Chronic Hypertension -currently stable with IV Lopressor and hydralazine Qualifiers: Hypertension type: essential hypertension Qualified Code(s): I10 - Essential (primary) hypertension (6) Acute and chronic respiratory failure Current Visit: No Status: Acute Acute chronic respiratory failure requiring mechanical ventilation -management per primary team Qualifiers: Respiratory failure complication: hypoxia Qualified Code(s): J96.21 - Acute and chronic respiratory failure with hypoxia Subjective Principal diagnosis: ESRD Interval history: Patient seen and examined at bedside. She is currently intubated on mechanical ventilation. Today she was awake and not sedated. She is able to answer questions by nodding her head. She denied fever, chills, nausea, abdominal pain. Objective - Vital Signs Vital signs: Vital Signs Temp Pulse Resp BP Pulse Ox 08/08/18 08:57 20 193/105 98 08/08/18 08:17 20 182/127 98 08/08/18 08:00 83 20 193/105 97 08/08/18 07:00 98.0 F 83 21 182/127 98 08/08/18 06:07 20 160/72 100 08/08/18 06:00 70 20 160/72 98 08/08/18 05:00 79 20 161/67 97 08/08/18 04:00 79 20 153/63 97 08/08/18 03:57 98.4 F 08/08/18 03:41 23 137/110 97 08/08/18 03:00 123 20 101/63 96 08/08/18 02:00 119 20 116/66 96 08/08/18 01:56 20 83/72 96 08/08/18 01:00 137 20 86/57 95 08/08/18 00:18 98.6 F 08/08/18 00:00 144 20 81/58 94 08/07/18 23:28 20 97/63 96 08/07/18 23:00 140 20 101/74 96 08/07/18 22:00 132 20 154/80 97 08/07/18 21:57 20 154/80 97 08/07/18 21:00 144 20 83/55 97 08/07/18 20:28 98.5 F 08/07/18 20:00 135 20 101/58 97 08/07/18 19:37 20 77/63 96 08/07/18 19:00 129 20 85/58 97 08/07/18 18:27 20 105/54 96 08/07/18 18:00 138 20 115/97 96 08/07/18 17:00 143 20 101/56 97 08/07/18 16:00 98 F 129 20 86/64 97 08/07/18 15:53 21 83/52 97 08/07/18 15:00 137 21 66/53 97 08/07/18 14:00 153 20 72/49 98 08/07/18 13:05 97.7 F 20 110/89 08/07/18 13:00 148 21 104/87 100 08/07/18 12:45 95/64 08/07/18 12:30 105/83 08/07/18 12:15 98/72 08/07/18 12:00 97.9 F 144 22 89/66 99 08/07/18 11:45 108/66 08/07/18 11:30 87/60 08/07/18 11:21 20 124/102 98 08/07/18 11:15 98/77 08/07/18 11:00 86 20 124/102 95 08/07/18 10:45 133/65 08/07/18 10:30 121/60 08/07/18 10:15 128/65 08/07/18 10:00 98.4 F 75 20 121/61 95 08/07/18 09:39 20 130/55 97 Intake and Output 08/07/18 08/08/18 08/08/18 23:59 07:59 15:59 Intake Total 34.6 / 34.6 337.2 / 337.2 Balance 34.6 / 34.6 337.2 / 337.2 Intake: IV Fluids 34.6 / 34.6 337.2 / 337.2 Amiodarone Drip Premix 360mg/ 14.6 / 14.6 185.4 / 185.4 200mL 360 mg In 200 ml @ 1 MG/ MIN 33.333 mls/hr IVC ONCE ONE Rx#:[id number] PRECEDEX Premix 400 mcg In 100 100 / 100 ml @ 0.4 MCG/KG/HR 6.65 mls/hr IVC .Q15H3M HUSSEIN Rx#:[id number] Cardizem 50 MG In 0.9 % Sodium 0 / 0 6.8 / 6.8 Chloride 40 ML @ 5 MG/HR 5 mls/ hr IVC .Q10H HUSSEIN Rx#:[id number] FentaNYL (PF) 1,000 MCG In 0.9 20 / 20 45 / 45 % Sodium Chloride 80 ML @ 50 MCG/HR 5 mls/hr IVC CONT HUSSEIN Rx #:[id number] Other: Weight 62.1 kg Patient Weight 08/08/18 23:59 Weight 62.1 kg - General Appearance General appearance: Present: appears started age, chronically ill, intubated. Absent: anxious EENT: Present: mucous membranes dry Neck: Present: supple Respiratory: Present: clear (Anteriorly) Cardiology: Present: no edema, irregular rhythm Dialysis Vascular Access: Arteriovenous Fistula Gastrointestinal: Present: normoactive bowel sounds, no guarding, no organomegaly Integumentary: Present: no rash, warm and dry Neurologic: Present: no focal deficit, no asterixis Musculoskeletal: Present: no deformities, no erythema Psychiatric: Present: mood/affect appropriate, cooperative - Lab 08/08/18 03:36 08/08/18 03:36 Most recent lab results ABG pH 7.39 pH Units (7.32-7.45) 08/08/18 05:53 ABG pCO2 54 mmHg (35-45) H 08/08/18 05:53 ABG pO2 173 mmHg (85-104) H 08/08/18 05:53 ABG HCO3 32 mEq/L (21-27) H 08/08/18 05:53 ABG O2 Saturation 100 % (95-98) H 08/08/18 05:53 Calcium 10.8 mg/dL (8.6-10.3) H 08/08/18 03:36 Phosphorus 8.6 mg/dL (2.7-4.5) H 08/08/18 03:36 Magnesium 2.2 mg/dL (1.6-2.6) 08/08/18 03:36 Consult Discharge Plan - Plan Referrals: Vladimir Chaidez MD [Primary Care Provider] -
--- NOTE | 2018-08-08 11:33 | Infectious Disease Progress No ---
Date of Encounter: 08/08/18 Time of Encounter: 10:50 - Assessment and Plan (1) Sepsis Current Visit: Yes Status: Resolved The patient had two sepsis criteria on admission. Likely secondary to MRSA bacteremia and pneumonia. Improved. WBC normalized. Tachycardia improved. Afebrile. Peripheral blood cultures drawn 07/30/18 are positive 2/2 sets for MRSA. Repeat blood cultures drawn 08/01/18 are positive 1/2 sets. Repeat blood cultures drawn 08/02/18 are negative x 2 sets. Qualifiers: Sepsis type: methicillin resistant Staphylococcus aureus Qualified Code(s): A41.02 - Sepsis due to Methicillin resistant Staphylococcus aureus (2) Bacteremia Current Visit: Yes Status: Acute Causative organism: MRSA. Source: Unclear, but possibly PNA although her BAL cultures are negative vs. AV fistula although no clinical evidence of cellulitis. Peripheral blood cultures drawn 07/30/18 are positive 2/2 sets for MRSA. Repeat blood cultures drawn 08/01/18 are positive 1/2 sets. Repeat blood cultures drawn 08/02/18 are negative x 2 sets. Complicated due to the lack of identified source. No hardware/pacemaker or evidence of metastatic infection. 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 No endocarditis stigmata noted on exam. TTE was suboptimal due to poor windows, but negative for vegetations. She will likely need a [place] prior to discharge. Await repeat blood cultures to finalize. Check rhuematoid factor.--> <10. Continue Vancomycin IV. Pharmacy to dose. Goal trough ~15. Duration of treatment depends on the clinical picture. Monitor labs for drug toxicity and dose-adjust antibiotics. (3) HCAP (healthcare-associated pneumonia) Current Visit: No Status: Acute Location: LUP, RML, RLL per bronchoscopy. Causative organism: Unclear. The patient has had multiple bronchoscopies in the past with previous cultures positive for Aspergillus fumigatus (05/03/18), Stenotrophomonas maltophilia (03/28/18), MRSA (02/17/18), and Serratia marcescens (11/25/17). CXR and CT chest findings noted and reviewed. Status post bronchoscopy 07/31/18 that showed mucupurulent secretions and mucous plugging. BAL cultures are no growth. Pathology/cytology pending. RIP negative. Strep pneumo and Legionella UATs were not collected since the patient is anuric secondary to ESRD. Repeat CXR 08/03/18 showed mild hazy bibasilar opacities consistent with pleural effusion and partial atelectasis. Continue Vancomycin IV. Pharmacy to dose. Goal trough ~15. Levaquin and Zosyn stopped per the primary team. Duration of treatment depends on the clinical picture. Monitor labs and for drug toxicity and dose-adjust antibiotics. (4) Acute exacerbation of chronic obstructive airways disease Current Visit: No Status: Acute Likely contributing to the patient's acute respiratory failure. Supportive care per the primary and pulmonology teams. (5) Acute and chronic respiratory failure with hypoxia Current Visit: Yes Status: Acute Likely multifactorial: pneumonia + COPD exacerbation + fluid volume overload. Intubated 07/30/18. Extubated 07/31/18. Re-intubated 08/06/18. Further management per the pulmonary team. (6) Elevated troponin Current Visit: Yes Status: Acute Etiology unclear. Cadiology consulted. Further workup and management per the primary team. (7) Pulmonary edema Current Visit: No Status: Acute Qualifiers: Chronicity: acute Qualified Code(s): J81.0 - Acute pulmonary edema (8) COPD (chronic obstructive pulmonary disease) Current Visit: Yes Status: Chronic Qualifiers: COPD type: COPD with acute exacerbation Qualified Code(s): J44.1 - Chronic obstructive pulmonary disease with (acute) exacerbation (9) HTN (hypertension) Current Visit: No Status: Chronic Qualifiers: Hypertension type: essential hypertension Qualified Code(s): I10 - Essential (primary) hypertension (10) ESRD on dialysis Current Visit: Yes Status: Chronic Nephrology consulted and following. 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 - Subjective Interval history: Patient seen and examined. No acute events noted overnight. Moved to ICU on Tuesday. Intubated 08/06/18. Status post bronchoscopy that showed mucous plug ging. Patient awake and alert on the vent. Follows commands and answers questions appropriately. Palliative care consult noted. Denies pain, shortness of breath, or nausea. No new issues per nursing. Pending extubation this morning. Infect Dis PN-Objective Data - Labs CBC & Chem 7: 08/09/18 03:00 08/09/18 03:00 Labs: Laboratory Results - last 24 hr 08/07/18 08/08/18 08/08/18 12:08 03:36 03:36 WBC 7.8 RBC 3.46 L Hgb 10.6 L Hct 33.8 L MCV 97.7 MCH 30.6 MCHC 31.4 L RDW 14.5 Plt Count 133 L MPV 11.1 Immature Gran % 1.1 Seg Neutrophils % 94.9 Lymphocytes % 1.0 Monocytes % 2.9 Eosinophils % 0.0 Basophils % 0.1 Neutrophils # 7.4 Lymphocytes # 0.1 L Monocytes # 0.2 Eosinophils # 0.0 Basophils # 0.0 Platelet Estimate Slight Decrease L Sample Site ABG pH ABG pCO2 ABG pO2 ABG HCO3 ABG Total CO2 ABG O2 Saturation ABG Base Excess Respiration Rate O2 Delivery Device Blood Gas Modality Inspired O2 Tidal Volume PEEP Sodium 140 Potassium 4.3 Chloride 97 L Carbon Dioxide 27 BUN 41 H Creatinine 3.54 H Est GFR ( Amer) 15 L Est GFR (Non-Af Amer) 13 L BUN/Creatinine Ratio 12 Glucose 151 H POC Glucose 115 H Calculated Osmolality 303 H Calcium 10.8 H Phosphorus 8.6 H Magnesium 2.2 Total Bilirubin 0.6 AST 18 ALT 42 Alkaline Phosphatase 70 Serum Total Protein 5.7 L Albumin 3.0 L Globulin 2.7 Albumin/Globulin Ratio 1.1 08/08/18 05:53 WBC RBC Hgb Hct MCV MCH MCHC RDW Plt Count MPV Immature Gran % Seg Neutrophils % Lymphocytes % Monocytes % Eosinophils % Basophils % Neutrophils # Lymphocytes # Monocytes # Eosinophils # Basophils # Platelet Estimate Sample Site R Radial ABG pH 7.39 ABG pCO2 54 H ABG pO2 173 H ABG HCO3 32 H ABG Total CO2 34 H ABG O2 Saturation 100 H ABG Base Excess 6 H Respiration Rate 20 O2 Delivery Device Adult Vent Blood Gas Modality ASSIST CONTROL Inspired O2 55.0 Tidal Volume 400 PEEP 10 Sodium Potassium Chloride Carbon Dioxide BUN Creatinine Est GFR ( Amer) Est GFR (Non-Af Amer) BUN/Creatinine Ratio Glucose POC Glucose Calculated Osmolality Calcium Phosphorus Magnesium Total Bilirubin AST ALT Alkaline Phosphatase Serum Total Protein Albumin Globulin Albumin/Globulin Ratio Cultures: Cultures 07/31/18 10:57 Legionella Culture - Final Left Upper Lobe Lung Legionella Culture - Preliminary 07/31/18 11:00 Legionella Culture - Final Right Middle Lobe Lung Legionella Culture - Preliminary 08/02/18 14:24 Blood Culture - Final Peripheral Venipuncture No growth. Final report. 08/02/18 14:23 Blood Culture - Final Peripheral Venipuncture No growth. Final report. 08/01/18 11:45 Blood Culture - Final Peripheral Venipuncture No growth. Final report. 07/30/18 21:02 Blood Culture - Final Peripheral Venipuncture Methicillin Resistant S.aureus 08/01/18 11:45 Blood Culture - Final Peripheral Venipuncture Methicillin Resistant S.aureus 07/31/18 05:30 Sputum Culture - Final Sputum 07/31/18 10:57 Respiratory Culture - Final Left Upper Lobe Lung 07/31/18 11:00 Respiratory Culture - Final Right Middle Lobe Lung 07/30/18 21:02 Blood Culture - Final Peripheral Venipuncture Methicillin Resistant S.aureus 07/31/18 11:00 Acid Fast Stain - Final Right Middle Lobe Lung 07/31/18 10:57 Acid Fast Stain - Final Left Upper Lobe Lung Serology 08/01/18 07/31/18 07/31/18 Range/Units 11:45 12:10 12:10 Fluid Source Fluid Volume mL Fluid Appearance (Clear) Fluid RBC Fld Tot Nucleated Cell Fluid Seg Neutrophil % % Fld Band Neutrophil % Fluid Lymphocytes % Fluid Monocytes % Fluid Eosinophils % Fluid Basophils % Fluid Other Cells % % Nasal Screen MRSA (PCR) Positive A (Negative) A. baumannii (PCR) Not Detected (Not Detect) Chlamy pneumoniae PCR Not Detected (Not Detect) Adenovirus (PCR) Not Detected (Not Detect) B. pertussis DNA (PCR) Not Detected (Not Detect) B.parapertussis DNA PCR Not Detected (Not Detect) Priyanka albicans (PCR) Not Detected (Not Detect) C. glabrata (PCR) Not Detected (Not Detect) C. krusei (PCR) Not Detected (Not Detect) C. parapsilosis (PCR) Not Detected (Not Detect) C. tropicalis (PCR) Not Detected (Not Detect) Coronavirus OC43 (PCR) Not Detected (Not Detect) Coronavirus HKU1 (PCR) Not Detected (Not Detect) Coronavirus 229E (PCR) Not Detected (Not Detect) Coronavirus NL63 (PCR) Not Detected (Not Detect) Enterobacteriac sp PCR Not Detected (Not Detect) E. cloacae complex PCR Not Detected (Not Detect) Enterococcus sp PCR Not Detected (Not Detect) E. coli (PCR) Not Detected (Not Detect) H. influenzae (PCR) Not Detected (Not Detect) Hep Bs Antigen (Nonreactive) Hep Bs Antibody mIU/mL Human Metapneumovir PCR Not Detected (Not Detect) Influenza A (H1) PCR Not Detected (Not Detect) Influ A (H1N1/09) PCR Not Detected (Not Detect) Influenza A (H3) PCR Not Detected (Not Detect) Influenza A Untype (PCR) Not Detected (Not Detect) Influenza Type B (PCR) Not Detected (Not Detect) Klebsiella oxytoca PCR Not Detected (Not Detect) Klebsiella pneumoniae Not Detected (Not Detect) List. monocytogenes PCR Not Detected (Not Detect) Mycoplasma pneumon IgG (<=0.09) U/L Mycoplasma pneumon IgM (<=0.76) U/L M.pneumoniae DNA (PCR) Not Detected (Not Detect) N. meningitidis (PCR) Not Detected (Not Detect) Parainfluenza 1 (PCR) Not Detected (Not Detect) Parainfluenza 2 (PCR) Not Detected (Not Detect) Parainfluenza 3 (PCR) Not Detected (Not Detect) Parainfluenza 4 (PCR) Not Detected (Not Detect) Proteus species (PCR) Not Detected (Not Detect) RSV (PCR) Not Detected (Not Detect) Entero/Rhino (PCR) Not Detected (Not Detect) Serratia marcescens PCR Not Detected (Not Detect) Staphylococcus sp PCR DETECTED A (Not Detect) Staph aureus (PCR) DETECTED A (Not Detect) mecA-Methicil Res Gene DETECTED A (Not Detect) Streptococcus sp PCR Not Detected (Not Detect) Group A Strep DNA Not Detected (Not Detect) Group B Strep (PCR) Not Detected (Not Detect) Strep pneumoniae (PCR) Not Detected (Not Detect) P. aeruginosa (PCR) Not Detected (Not Detect) Sydney/B-Vanco Res Genes N/A (Not Detect) KPC (blaKPC) Detect PCR N/A (Not Detect) 07/31/18 07/31/18 07/31/18 Range/Units 11:00 10:57 08:37 Fluid Source right middle lobe keegan left upper lobe lung Fluid Volume 17 16 mL Fluid Appearance Cloudy A Cloudy A (Clear) Fluid RBC TNP TNP Fld Tot Nucleated Cell TNP TNP Fluid Seg Neutrophil % 84.6 92.3 % Fld Band Neutrophil % TNP TNP Fluid Lymphocytes % TNP TNP Fluid Monocytes % TNP TNP Fluid Eosinophils % TNP TNP Fluid Basophils % TNP TNP Fluid Other Cells % 15.4 7.7 % Nasal Screen MRSA (PCR) (Negative) A. baumannii (PCR) (Not Detect) Chlamy pneumoniae PCR (Not Detect) Adenovirus (PCR) (Not Detect) B. pertussis DNA (PCR) (Not Detect) B.parapertussis DNA PCR (Not Detect) Priyanka albicans (PCR) (Not Detect) C. glabrata (PCR) (Not Detect) C. krusei (PCR) (Not Detect) C. parapsilosis (PCR) (Not Detect) C. tropicalis (PCR) (Not Detect) Coronavirus OC43 (PCR) (Not Detect) Coronavirus HKU1 (PCR) (Not Detect) Coronavirus 229E (PCR) (Not Detect) Coronavirus NL63 (PCR) (Not Detect) Enterobacteriac sp PCR (Not Detect) E. cloacae complex PCR (Not Detect) Enterococcus sp PCR (Not Detect) E. coli (PCR) (Not Detect) H. influenzae (PCR) (Not Detect) Hep Bs Antigen (Nonreactive) Hep Bs Antibody mIU/mL Human Metapneumovir PCR (Not Detect) Influenza A (H1) PCR (Not Detect) Influ A (H1N1/09) PCR (Not Detect) Influenza A (H3) PCR (Not Detect) Influenza A Untype (PCR) (Not Detect) Influenza Type B (PCR) (Not Detect) Klebsiella oxytoca PCR (Not Detect) Klebsiella pneumoniae (Not Detect) List. monocytogenes PCR (Not Detect) Mycoplasma pneumon IgG 0.04 (<=0.09) U/L Mycoplasma pneumon IgM 0.05 (<=0.76) U/L M.pneumoniae DNA (PCR) (Not Detect) N. meningitidis (PCR) (Not Detect) Parainfluenza 1 (PCR) (Not Detect) Parainfluenza 2 (PCR) (Not Detect) Parainfluenza 3 (PCR) (Not Detect) Parainfluenza 4 (PCR) (Not Detect) Proteus species (PCR) (Not Detect) RSV (PCR) (Not Detect) Entero/Rhino (PCR) (Not Detect) Serratia marcescens PCR (Not Detect) Staphylococcus sp PCR (Not Detect) Staph aureus (PCR) (Not Detect) mecA-Methicil Res Gene (Not Detect) Streptococcus sp PCR (Not Detect) Group A Strep DNA (Not Detect) Group B Strep (PCR) (Not Detect) Strep pneumoniae (PCR) (Not Detect) P. aeruginosa (PCR) (Not Detect) Sydney/B-Vanco Res Genes (Not Detect) KPC (blaKPC) Detect PCR (Not Detect) 07/30/18 07/30/18 Range/Units 21:02 17:51 Fluid Source Fluid Volume mL Fluid Appearance (Clear) Fluid RBC Fld Tot Nucleated Cell Fluid Seg Neutrophil % % Fld Band Neutrophil % Fluid Lymphocytes % Fluid Monocytes % Fluid Eosinophils % Fluid Basophils % Fluid Other Cells % % Nasal Screen MRSA (PCR) (Negative) A. baumannii (PCR) Not Detected (Not Detect) Chlamy pneumoniae PCR (Not Detect) Adenovirus (PCR) (Not Detect) B. pertussis DNA (PCR) (Not Detect) B.parapertussis DNA PCR (Not Detect) Priyanka albicans (PCR) Not Detected (Not Detect) C. glabrata (PCR) Not Detected (Not Detect) C. krusei (PCR) Not Detected (Not Detect) C. parapsilosis (PCR) Not Detected (Not Detect) C. tropicalis (PCR) Not Detected (Not Detect) Coronavirus OC43 (PCR) (Not Detect) Coronavirus HKU1 (PCR) (Not Detect) Coronavirus 229E (PCR) (Not Detect) Coronavirus NL63 (PCR) (Not Detect) Enterobacteriac sp PCR Not Detected (Not Detect) E. cloacae complex PCR Not Detected (Not Detect) Enterococcus sp PCR Not Detected (Not Detect) E. coli (PCR) Not Detected (Not Detect) H. influenzae (PCR) Not Detected (Not Detect) Hep Bs Antigen Nonreactive (Nonreactive) Hep Bs Antibody 1.25 mIU/mL Human Metapneumovir PCR (Not Detect) Influenza A (H1) PCR (Not Detect) Influ A (H1N1/09) PCR (Not Detect) Influenza A (H3) PCR (Not Detect) Influenza A Untype (PCR) (Not Detect) Influenza Type B (PCR) (Not Detect) Klebsiella oxytoca PCR Not Detected (Not Detect) Klebsiella pneumoniae Not Detected (Not Detect) List. monocytogenes PCR Not Detected (Not Detect) Mycoplasma pneumon IgG (<=0.09) U/L Mycoplasma pneumon IgM (<=0.76) U/L M.pneumoniae DNA (PCR) (Not Detect) N. meningitidis (PCR) Not Detected (Not Detect) Parainfluenza 1 (PCR) (Not Detect) Parainfluenza 2 (PCR) (Not Detect) Parainfluenza 3 (PCR) (Not Detect) Parainfluenza 4 (PCR) (Not Detect) Proteus species (PCR) Not Detected (Not Detect) RSV (PCR) (Not Detect) Entero/Rhino (PCR) (Not Detect) Serratia marcescens PCR Not Detected (Not Detect) Staphylococcus sp PCR DETECTED A (Not Detect) Staph aureus (PCR) DETECTED A (Not Detect) mecA-Methicil Res Gene DETECTED A (Not Detect) Streptococcus sp PCR Not Detected (Not Detect) Group A Strep DNA Not Detected (Not Detect) Group B Strep (PCR) Not Detected (Not Detect) Strep pneumoniae (PCR) Not Detected (Not Detect) P. aeruginosa (PCR) Not Detected (Not Detect) Sydney/B-Vanco Res Genes Not Detected (Not Detect) KPC (blaKPC) Detect PCR Not Detected (Not Detect) - Impressions Impressions Chest X-Ray 08/08/18 04:00 IMPRESSION: Persistent right perihilar atelectasis and/or infiltrate. D/ / 08/08/2018 08:17:04 Willis Cr MD / pool Interpreting Provider: Willis Cr MD Exam - Constitutional Vitals: Temp Pulse Resp BP Pulse Ox 98.0 F 92 12 183/80 97 08/08/18 07:00 08/08/18 10:00 08/08/18 10:00 08/08/18 10:00 08/08/18 10:00 General appearance: average body habitus, cooperative, no acute distress - Head Head exam: Present: atraumatic, normal inspection, normocephalic - Eye Eye exam: Present: EOMI, normal appearance, PERRL Pupils: Present: normal accommodation Additional comments: No subconjunctival hemorrhage noted. - ENT ENT exam: Present: mucous membranes dry - Neck Neck exam: Present: normal inspection - Respiratory Respiratory exam: Present: CTAB. Absent: rales, respiratory distress, rhonchi, wheezes - Cardiovascular Cardiovascular exam: Present: irregular rhythm. Absent: tachycardia - GI/Abdominal GI/Abdominal exam: Present: normal bowel sounds, soft. Absent: distended, tenderness Additional comments: OG tube to LIWS. - Extremities Exam Extremities exam: Present: normal inspection. Absent: joint swelling, pedal edema, tenderness Additional comments: AV fistula noted to the left forearm, +/+. - Neurological Exam Neurological exam: Present: alert, oriented X3, no focal deficits - Psychiatric Psychiatric exam: Present: normal affect, normal mood - Skin Skin exam: Present: dry, intact, normal color, warm Additional comments: No endocarditis stigmata noted. Consult Discharge Plan - Plan Referrals: Vladimir Chaidez MD [Primary Care Provider] - - Attending Attestation I examined this patient and my medical decision-making was reviewed with the R yamini Physician. I agree with the documented findings, disposition and treatment plan as described except to the extent set forth below. Discussed with family members and nursing staff. Patient was just extubated. Apparently they were discussing palliative care but family and patient changed her mind. ICU team thing that her lung function will not improve. Antibiotics were stopped by the ICU team including Zosyn and levofloxacin. Patient continues to be on vancomycin for the MRSA bacteremia. [place] to be done when patient is clinically stable. Prognosis guarded
[2018-08-08] MEDS: Budesonide/Formoterol 160/4.5 1 PUFF INH IH SCH ×2 (11:34→22:23)
--- NOTE | 2018-08-08 11:52 | Palliative Progress Note ---
Date of Encounter: 08/08/18 Time of Encounter: 10:40 - Assessment and plan (1) COPD (chronic obstructive pulmonary disease) Current Visit: Yes Status: Chronic Assessment and plan: Patient remains intubated upon arrival for assessment. Primary ICU team managing COPD. Qualifiers: COPD type: COPD with acute exacerbation Qualified Code(s): J44.1 - Chronic obstructive pulmonary disease with (acute) exacerbation (2) Benign hypertension with ESRD (end-stage renal disease) Current Visit: No Status: Chronic Assessment and plan: Nephrology consult appreciated; managing HD MWF per Outpatient schedule. (3) Acute exacerbation of chronic obstructive airways disease Current Visit: No Status: Acute (4) Sepsis Current Visit: Yes Status: Acute Assessment and plan: Infectious disease consult appreciated. Patient WBC trending down. Vancomycin order in place. Qualifiers: Sepsis type: methicillin resistant Staphylococcus aureus Qualified Code(s): A41.02 - Sepsis due to Methicillin resistant Staphylococcus aureus (5) Goals of care, counseling/discussion Current Visit: Yes Status: Acute Assessment and plan: Initiated discussion for goals of care, strictly in regards to CODE STATUS. Confirmed patient's wishes are DNRCCA, as had made decision; patient in agreement. Patient also expressed desire to be re-intubated if needed post extubation. Desires to make plan of care with Dr. Jackman as she knows and trusts him. Palliative care will follow up with patient post extubation and meeting with Dr. Jackman for further Goals of care Discussion. 1315: Conducted goals of care discussion with patient, patient's , son, and daughter. explained had reviewed patient's goals with Dr. Jackman and expressed desire to be re-intubated. concerned patient may have had difficulty in understanding options. Discussed options being: continuing what have been doing, trach, versus hospice. Patient able to understand risks related to each of the option. Patient's son requested clarification that Dialysis could not be continued with hospice; acknowledged, verbalized understanding. Patient requests more time to think options over and update Dr. Jackman this evening. Palliative care will follow up tomorrow to ensure no further questions. Updated ICU residents. - Time Spent With Patient Total time spent is greater than 50% in coordination of care (as documented) at patient's floor/unit and/or counseling patient: Greater than 35 minutes - Subjective Interval history: Patient lying in bed with eyes open, clipboard with paper and pen, upon arrival for assessment. No family present at bedside. Patient denies pain, shortness of breath, nausea, and vomiting. Patient reports anxiety; precedex infusing. Patient is alert and oriented. Patient's Primary RN Lorraine Present at room side. Patient answering questions with yes and no and writing on clipboard. Requested Dr. Jackman be present for goals of care discussion, as she knows and trusts him. - Constitutional Vitals: Abnormal lab results RBC 3.46 M/mcL (3.82-4.97) L 08/08/18 03:36 Hgb 10.6 g/dL (11.5-15.4) L 08/08/18 03:36 Hct 33.8 % (35.3-44.9) L 08/08/18 03:36 MCHC 31.4 g/dL (31.6-35.5) L 08/08/18 03:36 Plt Count 133 K/mcL (140-400) L 08/08/18 03:36 Lymphocytes # 0.1 K/mcL (0.6-4.6) L 08/08/18 03:36 Platelet Estimate Slight Decrease (Normal) L 08/08/18 03:36 ABG pCO2 54 mmHg (35-45) H 08/08/18 05:53 ABG pO2 173 mmHg (85-104) H 08/08/18 05:53 ABG HCO3 32 mEq/L (21-27) H 08/08/18 05:53 ABG Total CO2 34 mEq/L (20-26) H 08/08/18 05:53 ABG O2 Saturation 100 % (95-98) H 08/08/18 05:53 ABG Base Excess 6 mEq/L (-2 to 3) H 08/08/18 05:53 Chloride 97 mEq/L (98-107) L 08/08/18 03:36 BUN 41 mg/dL (8-23) H 08/08/18 03:36 Creatinine 3.54 mg/dL (0.60-1.20) H 08/08/18 03:36 Est GFR ( Amer) 15 (> 60) L 08/08/18 03:36 Est GFR (Non-Af Amer) 13 (> 60) L 08/08/18 03:36 Glucose 151 mg/dL (70-105) H 08/08/18 03:36 POC Glucose 115 mg/dL (70-99) H 08/07/18 12:08 Calculated Osmolality 303 (280-300) H 08/08/18 03:36 Calcium 10.8 mg/dL (8.6-10.3) H 08/08/18 03:36 Phosphorus 8.6 mg/dL (2.7-4.5) H 08/08/18 03:36 Troponin I 0.97 ng/mL (< 0.04) H* 08/04/18 14:04 Serum Total Protein 5.7 g/dL (6.4-8.9) L 08/08/18 03:36 Albumin 3.0 g/dL (3.5-5.7) L 08/08/18 03:36 Fluid Appearance Cloudy (Clear) A 07/31/18 11:00 Nasal Screen MRSA (PCR) Positive (Negative) A 07/31/18 12:10 Staphylococcus sp PCR DETECTED (Not Detect) A 08/01/18 11:45 Staph aureus (PCR) DETECTED (Not Detect) A 08/01/18 11:45 mecA-Methicil Res Gene DETECTED (Not Detect) A 08/01/18 11:45 General appearance: Present: cooperative, mild distress - Head Head exam: Present: atraumatic, normal inspection - Eye Eye exam: Present: EOMI, normal appearance, PERRL Pupils: Present: normal accommodation, PERRL - ENT ENT exam: Present: mucous membranes moist, normal external ear exam - Neck Neck exam: Present: full ROM, normal inspection - Respiratory Respiratory exam: Present: rhonchi. Absent: accessory muscle use, respiratory distress - Cardiovascular Cardiovascular exam: Present: +S1, +S2 - GI/Abdominal GI/Abdominal exam: Present: normal bowel sounds, soft. Absent: tenderness - Rectal Rectal exam: Present: deferred - Extremities Exam Extremities exam: Present: full ROM, normal inspection. Absent: calf tenderness, pedal edema - Back Exam Back exam: Present: full ROM, normal inspection - Neurological Exam Neurological exam: Present: alert, oriented X3, strengths equal and symetr throughout. Absent: altered - Psychiatric Psychiatric exam: Present: normal affect, normal mood - Skin Skin exam: Present: dry, intact, warm Palliative Quality Palliative Quality: Screen for Code Status: Yes, Screen for Goals of Care: Yes, Screen for Pain: Yes, If Pain Regimen Started, Initiate Bowel Regimen: NA, Scr een for Nausea/Vomitting: Yes Code Status: 07/30/18 20:37 CODE [Resuscitation Status: Active] [RES] Routine Comment: Resuscitation Status: Full Code 08/04/18 15:45 DNR [Resuscitation Status: Active] [RES] Routine Comment: Resuscitation Status: DNR-Comfort Care-Arrest - Labs CBC & Chem 7: 08/08/18 03:36 08/08/18 03:36 Labs: Laboratory Results - last 24 hr 08/07/18 08/08/18 08/08/18 12:08 03:36 03:36 WBC 7.8 RBC 3.46 L Hgb 10.6 L Hct 33.8 L MCV 97.7 MCH 30.6 MCHC 31.4 L RDW 14.5 Plt Count 133 L MPV 11.1 Immature Gran % 1.1 Seg Neutrophils % 94.9 Lymphocytes % 1.0 Monocytes % 2.9 Eosinophils % 0.0 Basophils % 0.1 Neutrophils # 7.4 Lymphocytes # 0.1 L Monocytes # 0.2 Eosinophils # 0.0 Basophils # 0.0 Platelet Estimate Slight Decrease L Sample Site ABG pH ABG pCO2 ABG pO2 ABG HCO3 ABG Total CO2 ABG O2 Saturation ABG Base Excess Respiration Rate O2 Delivery Device Blood Gas Modality Inspired O2 Tidal Volume PEEP Sodium 140 Potassium 4.3 Chloride 97 L Carbon Dioxide 27 BUN 41 H Creatinine 3.54 H Est GFR ( Amer) 15 L Est GFR (Non-Af Amer) 13 L BUN/Creatinine Ratio 12 Glucose 151 H POC Glucose 115 H Calculated Osmolality 303 H Calcium 10.8 H Phosphorus 8.6 H Magnesium 2.2 Total Bilirubin 0.6 AST 18 ALT 42 Alkaline Phosphatase 70 Serum Total Protein 5.7 L Albumin 3.0 L Globulin 2.7 Albumin/Globulin Ratio 1.1 08/08/18 05:53 WBC RBC Hgb Hct MCV MCH MCHC RDW Plt Count MPV Immature Gran % Seg Neutrophils % Lymphocytes % Monocytes % Eosinophils % Basophils % Neutrophils # Lymphocytes # Monocytes # Eosinophils # Basophils # Platelet Estimate Sample Site R Radial ABG pH 7.39 ABG pCO2 54 H ABG pO2 173 H ABG HCO3 32 H ABG Total CO2 34 H ABG O2 Saturation 100 H ABG Base Excess 6 H Respiration Rate 20 O2 Delivery Device Adult Vent Blood Gas Modality ASSIST CONTROL Inspired O2 55.0 Tidal Volume 400 PEEP 10 Sodium Potassium Chloride Carbon Dioxide BUN Creatinine Est GFR ( Amer) Est GFR (Non-Af Amer) BUN/Creatinine Ratio Glucose POC Glucose Calculated Osmolality Calcium Phosphorus Magnesium Total Bilirubin AST ALT Alkaline Phosphatase Serum Total Protein Albumin Globulin Albumin/Globulin Ratio - Impressions Impressions Chest X-Ray 08/08/18 04:00 IMPRESSION: Persistent right perihilar atelectasis and/or infiltrate. D/ / 08/08/2018 08:17:04 Willis Cr MD / [email or web address] Interpreting Provider: Willis Cr MD - ABG Interpretation ABG results: ABG ABG pH 7.39 pH Units (7.32-7.45) 08/08/18 05:53 ABG pCO2 54 mmHg (35-45) H 08/08/18 05:53 ABG pO2 173 mmHg (85-104) H 08/08/18 05:53 ABG O2 Saturation 100 % (95-98) H 08/08/18 05:53 PT/INR, D-dimer PT 10.0 Seconds (9.4-12.1) 07/30/18 21:02 Consult Discharge Plan - Plan Referrals: Vladimir Chaidez MD [Primary Care Provider] -
[2018-08-08] MEDS: Phenylephrine 10 MG in D5% in Water 250 ML IVC SCH (16:24)
[2018-08-08 17:30] LABS: VBG Ionized Calcium 1.16 mmol/L (1.15-1.35)
[2018-08-08] MEDS: Acetaminophen 325 MG TABLET PO PRN ×2 (18:31→22:59)
[2018-08-08] MEDS: Nitroglycerin 25 MG/250 ML INFUS..BTL IVC SCH (23:23)
[2018-08-09] MEDS: Dexmedetomidine HCl 400 MCG/100 ML MLS IVC SCH (02:07)
[2018-08-09 03:13] LABS: Basophils % 0.3 %; Hematocrit 33.8 % (35.3-44.9); Hemoglobin 10.9 g/dL (11.5-15.4); Lymphocytes # 0.1 K/mcL (0.6-4.6); Lymphocytes % 1.2 %; Mean Corpuscular HGB Conc 32.2 g/dL (31.6-35.5); Mean Platelet Volume 11.1 fL (9.4-12.4); Monocytes # 0.2 K/mcL (0.0-1.3); Monocytes % 1.7 %; Neutrophils # 9.9 K/mcL (1.6-8.9); Platelet Count 151 K/mcL (140-400); Red Blood Count 3.52 M/mcL (3.82-4.97); Red Cell Distribution Width 14.6 % (11.5-14.5); Segmented Neutrophils % 93.8 %
[2018-08-09] MEDS: Ipratropium/Albuterol Neb 3 ML IH SCH ×4 (03:29→22:35)
[2018-08-09] MEDS: Acetylcysteine 10% 2 ML INHSOL IH SCH ×4 (03:29→22:35)
[2018-08-09 03:32] LABS: Albumin 3.2 g/dL (3.5-5.7); Albumin/Globulin Ratio 1.5 (1.1-2.2); Bilirubin,Total 0.6 mg/dL (0.3-1.0); Calcium 10.8 mg/dL (8.6-10.3); Globulin 2.1 g/dL (2.4-3.5); Magnesium 2.3 mg/dL (1.6-2.6); Phosphorous 8.8 mg/dL (2.7-4.5); Potassium 4.4 mEq/L (3.5-5.1); Total Protein 5.3 g/dL (6.4-8.9)
[2018-08-09 03:34] LABS: VBG Ionized Calcium 1.25 mmol/L (1.15-1.35)
[2018-08-09 04:34] LABS: Platelet Estimate Normal (Normal)
[2018-08-09] MEDS: *HR* Heparin 5,000 UNIT/ML VIAL SQ SCH ×2 (05:20→17:41)
[2018-08-09] MEDS: *HR* Metoprolol 5 MG/5 ML VIAL IVP SCH (05:20)
[2018-08-09] MEDS: Acetaminophen 325 MG TABLET PO PRN (05:20)
[2018-08-09] MEDS: Artificial Tears SOLN 15 ML BOTTLE BOTH EYES SCH ×2 (05:28→07:55)
--- NOTE | 2018-08-09 06:33 | Pulmonology Progress Note ---
Addendum entered and electronically signed by Denice Strauss 08/09/18 17:21: Original Note: <Denice Strauss - Last Filed: 08/09/18 12:01> Time of Encounter: 06:33 Assessment and Plan (1) Acute and chronic respiratory failure with hypoxia Current Visit: Yes Status: Acute Returned to ICU due to increased WOB and chest pain. Was re-intubated on 08/06 Extubated 08/08 which was tolerated overnight CXR 08/08 persistent right perihilar atelectasis and infiltrate. Echo showed LVEF 65% with normal wall motion on 07/31 Bronchoscopy repeated 08/06 Vanc day 10, renally dosed. Levaquin and zosyn were D/C'd Respiratory infectious panel and Mycoplasma antigen screen negative MRSA nasal swab positive Blood culture positive for MRSA on 08/01, cultures from 08/02 show no growth Legionella and Strep pneumo were considered but pt is anuric so these labs are unable to be done Continue abx as above - ID following Steroids to Prednisone 40mg po daily Palliative Care consulted for goals of tx - consider tracheostomy for continued bronchoscopies vs DNI - will have discussion about goals of tx with family at bedside later today (2) Atrial fibrillation with RVR Current Visit: Yes Status: Chronic On 50mg Toprol XL at home Pt converted to NSR at 0400 yesterday and has remained in NSR. Continue Lopressor 10mg q6H with amiodarone drip. Dig loading dose was given. Cardizem drip is ordered and can give if necessary for repeated SVT On heparin for DVT prophylaxis/anticoagulation (3) ESRD on dialysis Current Visit: Yes Status: Chronic Nephrology on board Dialysis MWF - dialysis today Per nephro - resume MWF dialysis schedule at this time (4) Acute exacerbation of chronic obstructive pulmonary disease (COPD) Current Visit: Yes Status: Acute Mucus plugging vs pneumonia Plan as #1 above (5) Positive blood culture Current Visit: Yes Status: Acute Gm+ cocci detected in BC obtained on 08/01/18 - MRSA positive Bronchoscopy and sputum cultures pending Continue Vanc day 10, DC'd zosyn and levaquin. Repeat BC 08/02 showed no growth (6) Elevated troponin Current Visit: Yes Status: Acute 1.55 on 08/02 --> 1.29 on 10/25 --> 0800 1.08 Likely NSTEMI Since downtrend was seen, no reason to follow (7) Hyperkalemia Current Visit: Yes Status: Chronic Was elevated at 6.5 on admission Improves after HD Has dialysis MWF Continue to monitor (8) Hypothyroidism Current Visit: Yes Status: Chronic P was restarted on half normal levothyroxine dose 08/07 second dose given 08/08 Will hold and convert to PO tomorrow pending successful extubation Qualifiers: Hypothyroidism type: unspecified Qualified Code(s): E03.9 - Hypothyroidism, unspecified (9) DVT prophylaxis Current Visit: Yes Status: Acute SQ Heparin Subjective Principal diagnosis: ESRD Interval history: Pt extubated yesterday. Tolerated extubation overnight and has no complaints t his am. Pt to be transferred to the floor today. Accepting hospitalist Dr. Kraus was notified and she will be seen tomorrow. Objective PUL Vital signs: Last Vital Signs Temp 98.5 F 08/09/18 00:14 Pulse 65 08/09/18 05:00 Resp 16 08/09/18 05:00 BP 186/70 08/09/18 05:00 Pulse Ox 94 08/09/18 05:00 General appearance: no acute distress, alert Eyes: nonicteric ENT: oropharynx moist Neck: supple Effort: normal Auscultation: bilateral: clear Cardiovascular: regular rate and rhythm Gastrointestinal: soft, non-tender, non-distended Integumentary: normal Extremities: no edema, pulses normal Musculoskeletal: no deformities non-focal exam Results - Laboratory Findings CBC and BMP: 08/09/18 03:00 08/09/18 03:00 ABG ABG pH 7.39 pH Units (7.32-7.45) 08/08/18 05:53 ABG pCO2 54 mmHg (35-45) H 08/08/18 05:53 ABG pO2 173 mmHg (85-104) H 08/08/18 05:53 ABG O2 Saturation 100 % (95-98) H 08/08/18 05:53 PT/INR, D-dimer PT 10.0 Seconds (9.4-12.1) 07/30/18 21:02 Abnormal lab findings: Abnormal lab results RBC 3.52 M/mcL (3.82-4.97) L 08/09/18 03:00 Hgb 10.9 g/dL (11.5-15.4) L 08/09/18 03:00 Hct 33.8 % (35.3-44.9) L 08/09/18 03:00 RDW 14.6 % (11.5-14.5) H 08/09/18 03:00 Neutrophils # 9.9 K/mcL (1.6-8.9) H 08/09/18 03:00 Lymphocytes # 0.1 K/mcL (0.6-4.6) L 08/09/18 03:00 ABG pCO2 54 mmHg (35-45) H 08/08/18 05:53 ABG pO2 173 mmHg (85-104) H 08/08/18 05:53 ABG HCO3 32 mEq/L (21-27) H 08/08/18 05:53 ABG Total CO2 34 mEq/L (20-26) H 08/08/18 05:53 ABG O2 Saturation 100 % (95-98) H 08/08/18 05:53 ABG Base Excess 6 mEq/L (-2 to 3) H 08/08/18 05:53 Sodium 134 mEq/L (136-145) L 08/09/18 03:00 Chloride 93 mEq/L (98-107) L 08/09/18 03:00 BUN 68 mg/dL (8-23) H 08/09/18 03:00 Creatinine 4.81 mg/dL (0.60-1.20) H 08/09/18 03:00 Est GFR ( Amer) 11 (> 60) L 08/09/18 03:00 Est GFR (Non-Af Amer) 9 (> 60) L 08/09/18 03:00 Glucose 126 mg/dL (70-105) H 08/09/18 03:00 POC Glucose 114 mg/dL (70-99) H 08/08/18 23:25 Calcium 10.8 mg/dL (8.6-10.3) H 08/09/18 03:00 Phosphorus 8.8 mg/dL (2.7-4.5) H 08/09/18 03:00 Troponin I 0.97 ng/mL (< 0.04) H* 08/04/18 14:04 Serum Total Protein 5.3 g/dL (6.4-8.9) L 08/09/18 03:00 Albumin 3.2 g/dL (3.5-5.7) L 08/09/18 03:00 Globulin 2.1 g/dL (2.4-3.5) L 08/09/18 03:00 PTH Intact 265.4 pg/ml (10.0-65.0) H 08/08/18 14:23 Fluid Appearance Cloudy (Clear) A 07/31/18 11:00 Nasal Screen MRSA (PCR) Positive (Negative) A 07/31/18 12:10 Staphylococcus sp PCR DETECTED (Not Detect) A 08/01/18 11:45 Staph aureus (PCR) DETECTED (Not Detect) A 08/01/18 11:45 mecA-Methicil Res Gene DETECTED (Not Detect) A 08/01/18 11:45 - Microbiology Findings Microbiology Findings: Microbiology, Last 48 Hours 07/31/18 10:57 Legionella Culture - Final Left Upper Lobe Lung Legionella Culture - Preliminary 07/31/18 11:00 Legionella Culture - Final Right Middle Lobe Lung Legionella Culture - Preliminary 08/02/18 14:24 Blood Culture - Final Peripheral Venipuncture No growth. Final report. 08/02/18 14:23 Blood Culture - Final Peripheral Venipuncture No growth. Final report. - Clinical Findings Intake & Output: Intake & Output 08/08/18 08/08/18 08/09/18 15:59 23:59 07:59 Intake Total 262.6 / 262.6 200 / 200 Output Total 0 / 0 Balance 262.6 / 262.6 200 / 200 Weight 64.2 kg Consult Discharge Plan - Plan Referrals: Vladimir Chaidez MD [Primary Care Provider] - <Delon Lazo - Last Filed: 08/09/18 16:49> Date of Encounter: 08/09/18 Objective PUL Vital signs: Last Vital Signs Temp 97.6 F 08/09/18 07:57 Pulse 62 08/09/18 06:00 Resp 16 08/09/18 06:00 BP 180/78 08/09/18 06:00 Pulse Ox 96 08/09/18 06:00 Results - Laboratory Findings CBC and BMP: 08/09/18 03:00 08/09/18 03:00 ABG ABG pH 7.39 pH Units (7.32-7.45) 08/08/18 05:53 ABG pCO2 54 mmHg (35-45) H 08/08/18 05:53 ABG pO2 173 mmHg (85-104) H 08/08/18 05:53 ABG O2 Saturation 100 % (95-98) H 08/08/18 05:53 PT/INR, D-dimer PT 10.0 Seconds (9.4-12.1) 07/30/18 21:02 Abnormal lab findings: Abnormal lab results RBC 3.52 M/mcL (3.82-4.97) L 08/09/18 03:00 Hgb 10.9 g/dL (11.5-15.4) L 08/09/18 03:00 Hct 33.8 % (35.3-44.9) L 08/09/18 03:00 RDW 14.6 % (11.5-14.5) H 08/09/18 03:00 Neutrophils # 9.9 K/mcL (1.6-8.9) H 08/09/18 03:00 Lymphocytes # 0.1 K/mcL (0.6-4.6) L 08/09/18 03:00 ABG pCO2 54 mmHg (35-45) H 08/08/18 05:53 ABG pO2 173 mmHg (85-104) H 08/08/18 05:53 ABG HCO3 32 mEq/L (21-27) H 08/08/18 05:53 ABG Total CO2 34 mEq/L (20-26) H 08/08/18 05:53 ABG O2 Saturation 100 % (95-98) H 08/08/18 05:53 ABG Base Excess 6 mEq/L (-2 to 3) H 08/08/18 05:53 Sodium 134 mEq/L (136-145) L 08/09/18 03:00 Chloride 93 mEq/L (98-107) L 08/09/18 03:00 BUN 68 mg/dL (8-23) H 08/09/18 03:00 Creatinine 4.81 mg/dL (0.60-1.20) H 08/09/18 03:00 Est GFR ( Amer) 11 (> 60) L 08/09/18 03:00 Est GFR (Non-Af Amer) 9 (> 60) L 08/09/18 03:00 Glucose 126 mg/dL (70-105) H 08/09/18 03:00 POC Glucose 114 mg/dL (70-99) H 08/08/18 23:25 Calcium 10.8 mg/dL (8.6-10.3) H 08/09/18 03:00 Phosphorus 8.8 mg/dL (2.7-4.5) H 08/09/18 03:00 Troponin I 0.97 ng/mL (< 0.04) H* 08/04/18 14:04 Serum Total Protein 5.3 g/dL (6.4-8.9) L 08/09/18 03:00 Albumin 3.2 g/dL (3.5-5.7) L 08/09/18 03:00 Globulin 2.1 g/dL (2.4-3.5) L 08/09/18 03:00 PTH Intact 265.4 pg/ml (10.0-65.0) H 08/08/18 14:23 Fluid Appearance Cloudy (Clear) A 07/31/18 11:00 Nasal Screen MRSA (PCR) Positive (Negative) A 07/31/18 12:10 Staphylococcus sp PCR DETECTED (Not Detect) A 08/01/18 11:45 Staph aureus (PCR) DETECTED (Not Detect) A 08/01/18 11:45 mecA-Methicil Res Gene DETECTED (Not Detect) A 08/01/18 11:45 - Microbiology Findings Microbiology Findings: Microbiology, Last 48 Hours 07/31/18 10:57 Legionella Culture - Final Left Upper Lobe Lung Legionella Culture - Preliminary 07/31/18 11:00 Legionella Culture - Final Right Middle Lobe Lung Legionella Culture - Preliminary 08/02/18 14:24 Blood Culture - Final Peripheral Venipuncture No growth. Final report. 08/02/18 14:23 Blood Culture - Final Peripheral Venipuncture No growth. Final report. - Clinical Findings Intake & Output: Intake & Output 08/08/18 08/09/18 08/09/18 23:59 07:59 15:59 Intake Total 200 / 200 200 / 200 Balance 200 / 200 200 / 200 Weight 64.2 kg - Attending Attestation I examined this patient and my medical decision-making was reviewed with the Resident Physician. I agree with the documented findings, disposition and treatment plan as described except to the extent set forth below. We independently had [id number] contact with the patient Patient seen and examined at bedside Labs, radiology, chart personally reviewed. Management was reviewed during multidisciplinary critical care rounds. 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 Extubated doing well on nasal cannula O2 cont agressive BPT. cont BDs transition to oral glucocorticoids. Cards: BP remains hypertensive. restarting oral antihypertensives. Stop Amiodarone. GI: cont to monitor. Nutrition: adat Renal: ESRD dialysis planned today nephro following UOP Monitored, Cont to Trend sCr and monitor Electrolytes. ID: MRSA bacteremia cont ABx ID following. Heme/Onc: DVT prophylaxis given. Endo: Glucose Monitored Integ/MSK: Skin Care per routine ICU Nursing Protocol to prevent ulcers. Lines: All lines examined without evidence of infection : Dispo: Stable for transfer to med/tel CODE:DNAR family meeting with Pallitiave planned to address goals.
[2018-08-09] MEDS: Chlorhexidine Rinse 15 ML MOUTHWASH MM SCH (07:56)
[2018-08-09] MEDS: MethylPREDNISolone 40 MG/ML VIAL IVP SCH (07:57)
[2018-08-09] MEDS: Pantoprazole 40 MG VIAL IVP SCH (07:57)
[2018-08-09] MEDS: Amiodarone Premix 360 MG/200 ML BAG IVC SCH (08:11)
--- NOTE | 2018-08-09 09:30 | Nephrology Progress Note ---
Date of Encounter: 08/09/18 Time of Encounter: 09:27 - Assessment and Plan (1) ESRD on dialysis Current Visit: Yes Status: Chronic Patient has ESRD on dialysis, primarily with UF due to ongoing acute respiratory failure. She has dialysis on Mondays, Wednesdays, Fridays. Plan: -patient have HD today -Renal dose medications -avoid nephrotoxic agents -strict IO (2) Anemia in chronic kidney disease (CKD) Current Visit: No Status: Chronic Anemia of chronic disease in setting of CKD hemoglobin stable no obvious active bleeding goal hemoglobin 10-11 -Continue to monitor Qualifiers: Chronic kidney disease stage: on chronic dialysis Qualified Code(s): N18.6 - End stage renal disease; D63.1 - Anemia in chronic kidney disease; D63.1 - Anemia in chronic kidney disease; Z99.2 - Dependence on renal dialysis; Z99.2 - Dependence on renal dialysis; Z99.2 - Dependence on renal dialysis; Z99.2 - Dependence on renal dialysis (3) Hyperkalemia Current Visit: Yes Status: Chronic Recurrent Acute on chronic hyperkalemia. Potassium WNL -Recommend a renal diet that is low in potassium whenever her diet is resumed. (4) Hyperphosphatemia Current Visit: No Status: Chronic Hyperphosphatemia that is recurrent and acute on chronic. This is likely secondary to ESRD. -phosphate 8.8 -parathyroid hormone to 65.4 -25 vitamin D 46 -ionized calcium 1.25 plan: -will continue home sevelamar -recommend a renal diet that is low in phosphate when a diet is resumed (5) HTN (hypertension) Current Visit: No Status: Chronic Hypertension -currently stable with IV Lopressor and hydralazine Qualifiers: Hypertension type: essential hypertension Qualified Code(s): I10 - Essential (primary) hypertension (6) Acute and chronic respiratory failure Current Visit: No Status: Acute Acute chronic respiratory failure that required mechanical ventilation however the patient is now on room air. -Management per primary team Qualifiers: Respiratory failure complication: hypoxia Qualified Code(s): J96.21 - Acute and chronic respiratory failure with hypoxia Subjective Principal diagnosis: ESRD Interval history: Patient seen and examined at bedside. She has been extubated and is sitting up in a chair. She is in no acute distress. She denied fever, chills, nausea, abdominal pain. She has no complaints. Objective - Vital Signs Vital signs: Vital Signs Temp Pulse Resp BP Pulse Ox 08/09/18 07:57 97.6 F 08/09/18 06:00 62 16 180/78 96 08/09/18 05:00 65 16 186/70 94 08/09/18 04:00 65 16 179/73 95 08/09/18 03:29 16 183/76 96 08/09/18 03:00 66 18 168/78 96 08/09/18 02:00 66 16 183/80 96 08/09/18 01:00 67 16 178/75 96 08/09/18 00:14 98.5 F 08/09/18 00:00 66 18 170/73 97 08/08/18 23:00 71 16 174/94 96 08/08/18 22:36 17 171/75 95 08/08/18 22:25 16 95 08/08/18 22:00 72 16 173/74 96 08/08/18 21:00 73 14 172/74 96 08/08/18 20:19 98.3 F 08/08/18 20:00 74 18 178/79 96 08/08/18 19:00 74 18 174/82 96 08/08/18 18:00 70 18 165/71 94 08/08/18 17:00 71 16 161/71 93 08/08/18 16:34 16 95 08/08/18 16:00 82 18 165/78 96 08/08/18 15:41 98.6 F 08/08/18 14:00 84 18 154/72 96 08/08/18 13:00 98.2 F 89 16 172/61 93 08/08/18 12:15 16 97 08/08/18 12:00 92 20 188/99 96 08/08/18 11:37 12 183/80 97 08/08/18 11:00 89 18 199/91 97 08/08/18 10:00 92 12 183/80 97 Intake and Output 08/08/18 08/09/18 08/09/18 23:59 07:59 15:59 Intake Total 200 / 200 200 / 200 Balance 200 / 200 200 / 200 Intake: IV Fluids 200 / 200 200 / 200 Amiodarone Drip Premix 360mg/ 200 / 200 200 / 200 200mL 360 mg In 200 ml @ 0.5 MG /MIN 16.667 mls/hr IVC CONT HUSSEIN Rx#:[id number] Other: Weight 64.2 kg Blood Glucose* 116 114 Patient Weight 08/09/18 23:59 Weight 64.2 kg - General Appearance General appearance: Present: well-developed, well-nourished, appears started age EENT: Present: mucous membranes moist Neck: Present: supple Respiratory: Present: course breath sounds Cardiology: Present: no edema, irregular rhythm Dialysis Vascular Access: Arteriovenous Fistula (right) thrill: Yes Gastrointestinal: Present: normoactive bowel sounds, no tenderness, no guarding Integumentary: Present: no rash, warm and dry Neurologic: Present: no focal deficit, no asterixis Musculoskeletal: Present: no deformities, no erythema Psychiatric: Present: mood/affect appropriate, cooperative - Lab 08/09/18 03:00 08/09/18 03:00 Most recent lab results ABG pH 7.39 pH Units (7.32-7.45) 08/08/18 05:53 ABG pCO2 54 mmHg (35-45) H 08/08/18 05:53 ABG pO2 173 mmHg (85-104) H 08/08/18 05:53 ABG HCO3 32 mEq/L (21-27) H 08/08/18 05:53 ABG O2 Saturation 100 % (95-98) H 08/08/18 05:53 Calcium 10.8 mg/dL (8.6-10.3) H 08/09/18 03:00 Phosphorus 8.8 mg/dL (2.7-4.5) H 08/09/18 03:00 Magnesium 2.3 mg/dL (1.6-2.6) 08/09/18 03:00 Consult Discharge Plan - Plan Referrals: Vladimir Chaidez MD [Primary Care Provider] -
[2018-08-09] MEDS: Budesonide/Formoterol 160/4.5 1 PUFF INH IH SCH ×2 (09:49→22:35)
[2018-08-09] MEDS: FentaNYL (PF) 1,000 MCG in 0.9 % Sodium Chloride 80 ML IVC SCH (10:13)
[2018-08-09] MEDS ORDERED: 0.9 % Sodium Chloride 250 ML IVC PRN (10:13)
[2018-08-09] MEDS ORDERED: 0.9 % Sodium Chloride 1,000 ML PRIME SCH (10:15)
--- NOTE | 2018-08-09 11:05 | Infectious Disease Progress No ---
Date of Encounter: 08/09/18 Time of Encounter: 09:35 - Assessment and Plan (1) Sepsis Current Visit: Yes Status: Resolved The patient had two sepsis criteria on admission. Likely secondary to MRSA bacteremia and pneumonia. Improved. WBC normalized. Tachycardia improved. Afebrile. Peripheral blood cultures drawn 07/30/18 are positive 2/2 sets for MRSA. Repeat blood cultures drawn 08/01/18 are positive 1/2 sets. Repeat blood cultures drawn 08/02/18 are negative x 2 sets. Qualifiers: Sepsis type: methicillin resistant Staphylococcus aureus Qualified Code(s): A41.02 - Sepsis due to Methicillin resistant Staphylococcus aureus (2) Bacteremia Current Visit: Yes Status: Acute Causative organism: MRSA. Source: Unclear, but possibly PNA although her BAL cultures are negative vs. AV fistula although no clinical evidence of cellulitis. Peripheral blood cultures drawn 07/30/18 are positive 2/2 sets for MRSA. Repeat blood cultures drawn 08/01/18 are positive 1/2 sets. Repeat blood cultures drawn 08/02/18 are negative x 2 sets. Complicated due to the lack of identified source. No hardware/pacemaker or evidence of metastatic infection. 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 No endocarditis stigmata noted on exam. TTE was suboptimal due to poor windows, but negative for vegetations. She will likely need a [place] prior to discharge if able to be done given her compromised respiratory status. Check rhuematoid factor.--> <10. Continue Vancomycin IV. Pharmacy to dose. Goal trough ~15. Duration of treatment depends on the clinical picture. If unable to perform [place], will plan to treat for 4 weeks with IV antibiotics. Monitor labs for drug toxicity and dose-adjust antibiotics. (3) HCAP (healthcare-associated pneumonia) Current Visit: No Status: Acute Location: LUP, RML, RLL per bronchoscopy. Causative organism: Unclear. The patient has had multiple bronchoscopies in the past with previous cultures positive for Aspergillus fumigatus (05/03/18), Stenotrophomonas maltophilia (03/28/18), MRSA (02/17/18), and Serratia marcescens (11/25/17). CXR and CT chest findings noted and reviewed. Status post bronchoscopy 07/31/18 that showed mucupurulent secretions and mucous plugging. BAL cultures are no growth. Pathology/cytology pending. RIP negative. Strep pneumo and Legionella UATs were not collected since the patient is anuric secondary to ESRD. Repeat CXR 08/03/18 showed mild hazy bibasilar opacities consistent with pleural effusion and partial atelectasis. Continue Vancomycin IV. Pharmacy to dose. Goal trough ~15. Levaquin and Zosyn stopped per the primary team. Duration of treatment depends on the clinical picture, but will require a prolonged course of IV Vanc due to bacteremia. Monitor labs and for drug toxicity and dose-adjust antibiotics. (4) Acute exacerbation of chronic obstructive airways disease Current Visit: No Status: Acute Likely contributing to the patient's acute respiratory failure. Supportive care per the primary and pulmonology teams. (5) Acute and chronic respiratory failure with hypoxia Current Visit: Yes Status: Acute Likely multifactorial: pneumonia + COPD exacerbation + fluid volume overload. Intubated 07/30/18. Extubated 07/31/18. Re-intubated 08/06/18. Extubated 08/08/18. Palliative care consulted to assist with goals of care. Further management per the pulmonary team. (6) Elevated troponin Current Visit: Yes Status: Acute Etiology unclear. Cadiology consulted. Further workup and management per the primary team. (7) Pulmonary edema Current Visit: No Status: Acute Qualifiers: Chronicity: acute Qualified Code(s): J81.0 - Acute pulmonary edema (8) COPD (chronic obstructive pulmonary disease) Current Visit: Yes Status: Chronic Qualifiers: COPD type: COPD with acute exacerbation Qualified Code(s): J44.1 - Chronic obstructive pulmonary disease with (acute) exacerbation (9) HTN (hypertension) Current Visit: No Status: Chronic Qualifiers: Hypertension type: essential hypertension Qualified Code(s): I10 - Essential (primary) hypertension (10) ESRD on dialysis Current Visit: Yes Status: Chronic Nephrology consulted and following. 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 - Subjective Interval history: Patient seen and examined. No acute events noted overnight. Moved to ICU on Tuesday. Intubated 08/06/18. Status post bronchoscopy that showed mucous plugging. Estubated 08/08/18 to nasal cannula. Currently sitting up in the bedside chair. Follows commands and answers questions appropriately, but does not appear to comprehend some information given to her. Palliative care consult noted. Denies pain, shortness of breath, or nausea. No new issues per nursing. Infect Dis PN-Objective Data - Labs CBC & Chem 7: 08/11/18 05:46 08/11/18 05:46 Labs: Laboratory Results - last 24 hr 08/08/18 08/08/18 08/08/18 05:13 11:52 14:23 WBC RBC Hgb Hct MCV MCH MCHC RDW Plt Count MPV Immature Gran % Seg Neutrophils % Lymphocytes % Monocytes % Eosinophils % Basophils % Neutrophils # Lymphocytes # Monocytes # Eosinophils # Basophils # Platelet Estimate Sodium Potassium Chloride Carbon Dioxide BUN Creatinine Est GFR ( Amer) Est GFR (Non-Af Amer) BUN/Creatinine Ratio Glucose POC Glucose 175 H 118 H Calculated Osmolality Calcium Venous Ioniz Calcium Phosphorus Magnesium Total Bilirubin AST ALT Alkaline Phosphatase Serum Total Protein Albumin Globulin Albumin/Globulin Ratio 25-OH Vitamin D Total 46 PTH Intact Random Vancomycin 08/08/18 08/08/18 08/08/18 14:23 17:27 17:39 WBC RBC Hgb Hct MCV MCH MCHC RDW Plt Count MPV Immature Gran % Seg Neutrophils % Lymphocytes % Monocytes % Eosinophils % Basophils % Neutrophils # Lymphocytes # Monocytes # Eosinophils # Basophils # Platelet Estimate Sodium Potassium Chloride Carbon Dioxide BUN Creatinine Est GFR ( Amer) Est GFR (Non-Af Amer) BUN/Creatinine Ratio Glucose POC Glucose 116 H Calculated Osmolality Calcium Venous Ioniz Calcium 1.16 Phosphorus Magnesium Total Bilirubin AST ALT Alkaline Phosphatase Serum Total Protein Albumin Globulin Albumin/Globulin Ratio 25-OH Vitamin D Total PTH Intact 265.4 H Random Vancomycin 08/08/18 08/09/18 08/09/18 23:25 03:00 03:00 WBC 10.6 RBC 3.52 L Hgb 10.9 L Hct 33.8 L MCV 96.0 MCH 31.0 MCHC 32.2 RDW 14.6 H Plt Count 151 MPV 11.1 Immature Gran % 3.0 Seg Neutrophils % 93.8 Lymphocytes % 1.2 Monocytes % 1.7 Eosinophils % 0.0 Basophils % 0.3 Neutrophils # 9.9 H Lymphocytes # 0.1 L Monocytes # 0.2 Eosinophils # 0.0 Basophils # 0.0 Platelet Estimate Normal Sodium Potassium Chloride Carbon Dioxide BUN Creatinine Est GFR ( Amer) Est GFR (Non-Af Amer) BUN/Creatinine Ratio Glucose POC Glucose 114 H Calculated Osmolality Calcium Venous Ioniz Calcium Phosphorus Magnesium Total Bilirubin AST ALT Alkaline Phosphatase Serum Total Protein Albumin Globulin Albumin/Globulin Ratio 25-OH Vitamin D Total PTH Intact Random Vancomycin 16 08/09/18 08/09/18 03:00 03:31 WBC RBC Hgb Hct MCV MCH MCHC RDW Plt Count MPV Immature Gran % Seg Neutrophils % Lymphocytes % Monocytes % Eosinophils % Basophils % Neutrophils # Lymphocytes # Monocytes # Eosinophils # Basophils # Platelet Estimate Sodium 134 L Potassium 4.4 Chloride 93 L Carbon Dioxide 26 BUN 68 H Creatinine 4.81 H Est GFR ( Amer) 11 L Est GFR (Non-Af Amer) 9 L BUN/Creatinine Ratio 14 Glucose 126 H POC Glucose Calculated Osmolality 299 Calcium 10.8 H Venous Ioniz Calcium 1.25 Phosphorus 8.8 H Magnesium 2.3 Total Bilirubin 0.6 AST 16 ALT 33 Alkaline Phosphatase 72 Serum Total Protein 5.3 L Albumin 3.2 L Globulin 2.1 L Albumin/Globulin Ratio 1.5 25-OH Vitamin D Total PTH Intact Random Vancomycin Cultures: Cultures 07/31/18 10:57 Legionella Culture - Final Left Upper Lobe Lung Legionella Culture - Preliminary 07/31/18 11:00 Legionella Culture - Final Right Middle Lobe Lung Legionella Culture - Preliminary 08/02/18 14:24 Blood Culture - Final Peripheral Venipuncture No growth. Final report. 08/02/18 14:23 Blood Culture - Final Peripheral Venipuncture No growth. Final report. 08/01/18 11:45 Blood Culture - Final Peripheral Venipuncture No growth. Final report. 07/30/18 21:02 Blood Culture - Final Peripheral Venipuncture Methicillin Resistant S.aureus 08/01/18 11:45 Blood Culture - Final Peripheral Venipuncture Methicillin Resistant S.aureus 07/31/18 05:30 Sputum Culture - Final Sputum 07/31/18 10:57 Respiratory Culture - Final Left Upper Lobe Lung 07/31/18 11:00 Respiratory Culture - Final Right Middle Lobe Lung 07/30/18 21:02 Blood Culture - Final Peripheral Venipuncture Methicillin Resistant S.aureus 07/31/18 11:00 Acid Fast Stain - Final Right Middle Lobe Lung 07/31/18 10:57 Acid Fast Stain - Final Left Upper Lobe Lung Serology 08/01/18 07/31/18 07/31/18 Range/Units 11:45 12:10 12:10 Fluid Source Fluid Volume mL Fluid Appearance (Clear) Fluid RBC Fld Tot Nucleated Cell Fluid Seg Neutrophil % % Fld Band Neutrophil % Fluid Lymphocytes % Fluid Monocytes % Fluid Eosinophils % Fluid Basophils % Fluid Other Cells % % Nasal Screen MRSA (PCR) Positive A (Negative) A. baumannii (PCR) Not Detected (Not Detect) Chlamy pneumoniae PCR Not Detected (Not Detect) Adenovirus (PCR) Not Detected (Not Detect) B. pertussis DNA (PCR) Not Detected (Not Detect) B.parapertussis DNA PCR Not Detected (Not Detect) Priyanka albicans (PCR) Not Detected (Not Detect) C. glabrata (PCR) Not Detected (Not Detect) C. krusei (PCR) Not Detected (Not Detect) C. parapsilosis (PCR) Not Detected (Not Detect) C. tropicalis (PCR) Not Detected (Not Detect) Coronavirus OC43 (PCR) Not Detected (Not Detect) Coronavirus HKU1 (PCR) Not Detected (Not Detect) Coronavirus 229E (PCR) Not Detected (Not Detect) Coronavirus NL63 (PCR) Not Detected (Not Detect) Enterobacteriac sp PCR Not Detected (Not Detect) E. cloacae complex PCR Not Detected (Not Detect) Enterococcus sp PCR Not Detected (Not Detect) E. coli (PCR) Not Detected (Not Detect) H. influenzae (PCR) Not Detected (Not Detect) Hep Bs Antigen (Nonreactive) Hep Bs Antibody mIU/mL Human Metapneumovir PCR Not Detected (Not Detect) Influenza A (H1) PCR Not Detected (Not Detect) Influ A (H1N1/09) PCR Not Detected (Not Detect) Influenza A (H3) PCR Not Detected (Not Detect) Influenza A Untype (PCR) Not Detected (Not Detect) Influenza Type B (PCR) Not Detected (Not Detect) Klebsiella oxytoca PCR Not Detected (Not Detect) Klebsiella pneumoniae Not Detected (Not Detect) List. monocytogenes PCR Not Detected (Not Detect) Mycoplasma pneumon IgG (<=0.09) U/L Mycoplasma pneumon IgM (<=0.76) U/L M.pneumoniae DNA (PCR) Not Detected (Not Detect) N. meningitidis (PCR) Not Detected (Not Detect) Parainfluenza 1 (PCR) Not Detected (Not Detect) Parainfluenza 2 (PCR) Not Detected (Not Detect) Parainfluenza 3 (PCR) Not Detected (Not Detect) Parainfluenza 4 (PCR) Not Detected (Not Detect) Proteus species (PCR) Not Detected (Not Detect) RSV (PCR) Not Detected (Not Detect) Entero/Rhino (PCR) Not Detected (Not Detect) Serratia marcescens PCR Not Detected (Not Detect) Staphylococcus sp PCR DETECTED A (Not Detect) Staph aureus (PCR) DETECTED A (Not Detect) mecA-Methicil Res Gene DETECTED A (Not Detect) Streptococcus sp PCR Not Detected (Not Detect) Group A Strep DNA Not Detected (Not Detect) Group B Strep (PCR) Not Detected (Not Detect) Strep pneumoniae (PCR) Not Detected (Not Detect) P. aeruginosa (PCR) Not Detected (Not Detect) Sydney/B-Vanco Res Genes N/A (Not Detect) KPC (blaKPC) Detect PCR N/A (Not Detect) 07/31/18 07/31/18 07/31/18 Range/Units 11:00 10:57 08:37 Fluid Source right middle lobe keegan left upper lobe lung Fluid Volume 17 16 mL Fluid Appearance Cloudy A Cloudy A (Clear) Fluid RBC TNP TNP Fld Tot Nucleated Cell TNP TNP Fluid Seg Neutrophil % 84.6 92.3 % Fld Band Neutrophil % TNP TNP Fluid Lymphocytes % TNP TNP Fluid Monocytes % TNP TNP Fluid Eosinophils % TNP TNP Fluid Basophils % TNP TNP Fluid Other Cells % 15.4 7.7 % Nasal Screen MRSA (PCR) (Negative) A. baumannii (PCR) (Not Detect) Chlamy pneumoniae PCR (Not Detect) Adenovirus (PCR) (Not Detect) B. pertussis DNA (PCR) (Not Detect) B.parapertussis DNA PCR (Not Detect) Priyanka albicans (PCR) (Not Detect) C. glabrata (PCR) (Not Detect) C. krusei (PCR) (Not Detect) C. parapsilosis (PCR) (Not Detect) C. tropicalis (PCR) (Not Detect) Coronavirus OC43 (PCR) (Not Detect) Coronavirus HKU1 (PCR) (Not Detect) Coronavirus 229E (PCR) (Not Detect) Coronavirus NL63 (PCR) (Not Detect) Enterobacteriac sp PCR (Not Detect) E. cloacae complex PCR (Not Detect) Enterococcus sp PCR (Not Detect) E. coli (PCR) (Not Detect) H. influenzae (PCR) (Not Detect) Hep Bs Antigen (Nonreactive) Hep Bs Antibody mIU/mL Human Metapneumovir PCR (Not Detect) Influenza A (H1) PCR (Not Detect) Influ A (H1N1/09) PCR (Not Detect) Influenza A (H3) PCR (Not Detect) Influenza A Untype (PCR) (Not Detect) Influenza Type B (PCR) (Not Detect) Klebsiella oxytoca PCR (Not Detect) Klebsiella pneumoniae (Not Detect) List. monocytogenes PCR (Not Detect) Mycoplasma pneumon IgG 0.04 (<=0.09) U/L Mycoplasma pneumon IgM 0.05 (<=0.76) U/L M.pneumoniae DNA (PCR) (Not Detect) N. meningitidis (PCR) (Not Detect) Parainfluenza 1 (PCR) (Not Detect) Parainfluenza 2 (PCR) (Not Detect) Parainfluenza 3 (PCR) (Not Detect) Parainfluenza 4 (PCR) (Not Detect) Proteus species (PCR) (Not Detect) RSV (PCR) (Not Detect) Entero/Rhino (PCR) (Not Detect) Serratia marcescens PCR (Not Detect) Staphylococcus sp PCR (Not Detect) Staph aureus (PCR) (Not Detect) mecA-Methicil Res Gene (Not Detect) Streptococcus sp PCR (Not Detect) Group A Strep DNA (Not Detect) Group B Strep (PCR) (Not Detect) Strep pneumoniae (PCR) (Not Detect) P. aeruginosa (PCR) (Not Detect) Sydney/B-Vanco Res Genes (Not Detect) KPC (blaKPC) Detect PCR (Not Detect) 07/30/18 07/30/18 Range/Units 21:02 17:51 Fluid Source Fluid Volume mL Fluid Appearance (Clear) Fluid RBC Fld Tot Nucleated Cell Fluid Seg Neutrophil % % Fld Band Neutrophil % Fluid Lymphocytes % Fluid Monocytes % Fluid Eosinophils % Fluid Basophils % Fluid Other Cells % % Nasal Screen MRSA (PCR) (Negative) A. baumannii (PCR) Not Detected (Not Detect) Chlamy pneumoniae PCR (Not Detect) Adenovirus (PCR) (Not Detect) B. pertussis DNA (PCR) (Not Detect) B.parapertussis DNA PCR (Not Detect) Priyanka albicans (PCR) Not Detected (Not Detect) C. glabrata (PCR) Not Detected (Not Detect) C. krusei (PCR) Not Detected (Not Detect) C. parapsilosis (PCR) Not Detected (Not Detect) C. tropicalis (PCR) Not Detected (Not Detect) Coronavirus OC43 (PCR) (Not Detect) Coronavirus HKU1 (PCR) (Not Detect) Coronavirus 229E (PCR) (Not Detect) Coronavirus NL63 (PCR) (Not Detect) Enterobacteriac sp PCR Not Detected (Not Detect) E. cloacae complex PCR Not Detected (Not Detect) Enterococcus sp PCR Not Detected (Not Detect) E. coli (PCR) Not Detected (Not Detect) H. influenzae (PCR) Not Detected (Not Detect) Hep Bs Antigen Nonreactive (Nonreactive) Hep Bs Antibody 1.25 mIU/mL Human Metapneumovir PCR (Not Detect) Influenza A (H1) PCR (Not Detect) Influ A (H1N1/09) PCR (Not Detect) Influenza A (H3) PCR (Not Detect) Influenza A Untype (PCR) (Not Detect) Influenza Type B (PCR) (Not Detect) Klebsiella oxytoca PCR Not Detected (Not Detect) Klebsiella pneumoniae Not Detected (Not Detect) List. monocytogenes PCR Not Detected (Not Detect) Mycoplasma pneumon IgG (<=0.09) U/L Mycoplasma pneumon IgM (<=0.76) U/L M.pneumoniae DNA (PCR) (Not Detect) N. meningitidis (PCR) Not Detected (Not Detect) Parainfluenza 1 (PCR) (Not Detect) Parainfluenza 2 (PCR) (Not Detect) Parainfluenza 3 (PCR) (Not Detect) Parainfluenza 4 (PCR) (Not Detect) Proteus species (PCR) Not Detected (Not Detect) RSV (PCR) (Not Detect) Entero/Rhino (PCR) (Not Detect) Serratia marcescens PCR Not Detected (Not Detect) Staphylococcus sp PCR DETECTED A (Not Detect) Staph aureus (PCR) DETECTED A (Not Detect) mecA-Methicil Res Gene DETECTED A (Not Detect) Streptococcus sp PCR Not Detected (Not Detect) Group A Strep DNA Not Detected (Not Detect) Group B Strep (PCR) Not Detected (Not Detect) Strep pneumoniae (PCR) Not Detected (Not Detect) P. aeruginosa (PCR) Not Detected (Not Detect) Sydney/B-Vanco Res Genes Not Detected (Not Detect) KPC (blaKPC) Detect PCR Not Detected (Not Detect) Exam - Constitutional Vitals: Temp Pulse Resp BP Pulse Ox 97.6 F 69 16 189/91 95 08/09/18 07:57 08/09/18 09:00 08/09/18 09:00 08/09/18 09:00 08/09/18 09:00 General appearance: average body habitus, cooperative, no acute distress - Head Head exam: Present: atraumatic, normal inspection, normocephalic - Eye Eye exam: Present: EOMI, normal appearance, PERRL Pupils: Present: normal accommodation Additional comments: No subconjunctival hemorrhage noted. - ENT ENT exam: Present: mucous membranes moist - Neck Neck exam: Present: normal inspection - Respiratory Respiratory exam: Present: rales (Left base.). Absent: rhonchi, wheezes - Cardiovascular Cardiovascular exam: Present: RRR, +S1, +S2 - GI/Abdominal GI/Abdominal exam: Present: normal bowel sounds, soft. Absent: distended, tenderness - Extremities Exam Extremities exam: Present: normal inspection. Absent: joint swelling, pedal edema, tenderness - Neurological Exam Neurological exam: Present: alert, oriented X3, no focal deficits - Psychiatric Psychiatric exam: Present: normal affect, normal mood - Skin Skin exam: Present: dry, intact, normal color, warm Consult Discharge Plan - Plan Referrals: Vladimir Chaidez MD [Primary Care Provider] - - Attending Attestation I examined this patient and my medical decision-making was reviewed with the Resident Physician. I agree with the documented findings, disposition and treatment plan as described except to the extent set forth below.
[2018-08-09] MEDS: predniSONE 20 MG TABLET PO SCH (12:45)
--- NOTE | 2018-08-09 13:52 | Palliative Progress Note ---
Date of Encounter: 08/09/18 Time of Encounter: 12:55 - Assessment and plan (1) Goals of care, counseling/discussion Current Visit: Yes Status: Acute Assessment and plan: Patient this am did not engage in much conversation, kept repeated that she wanted to go home. Met with family this afternoon and stated they had good conversation with her last pm. She did not want to pursue hospice care, and wants to go home upon discharge. Family states that she indicated she still desired to return to hospital for these events, and agreed to continue intubations and bronchoscopies as necessary. They are aware of the risk that she could have mucous plugs and could be in critical situation or pass away, if unable to be intubated or receive respiratory assistance in a timely manner. Family from [place] will be staying in town until she is home and settled. Should be transferred out of ICU today. Will continue to follow clinical course to monitor improvement. 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 Was up in chair this am on my first visit. She was A&O x2, but slow to respond and would only answer occasional questions. Denies pain or discomfort. Took some clear liquids for breakfast. She is currently receiving dialysis. Family, including , son, DIL, and daughter at present. - Constitutional Vitals: Abnormal lab results RBC 3.52 M/mcL (3.82-4.97) L 08/09/18 03:00 Hgb 10.9 g/dL (11.5-15.4) L 08/09/18 03:00 Hct 33.8 % (35.3-44.9) L 08/09/18 03:00 RDW 14.6 % (11.5-14.5) H 08/09/18 03:00 Neutrophils # 9.9 K/mcL (1.6-8.9) H 08/09/18 03:00 Lymphocytes # 0.1 K/mcL (0.6-4.6) L 08/09/18 03:00 ABG pCO2 54 mmHg (35-45) H 08/08/18 05:53 ABG pO2 173 mmHg (85-104) H 08/08/18 05:53 ABG HCO3 32 mEq/L (21-27) H 08/08/18 05:53 ABG Total CO2 34 mEq/L (20-26) H 08/08/18 05:53 ABG O2 Saturation 100 % (95-98) H 08/08/18 05:53 ABG Base Excess 6 mEq/L (-2 to 3) H 08/08/18 05:53 Sodium 134 mEq/L (136-145) L 08/09/18 03:00 Chloride 93 mEq/L (98-107) L 08/09/18 03:00 BUN 68 mg/dL (8-23) H 08/09/18 03:00 Creatinine 4.81 mg/dL (0.60-1.20) H 08/09/18 03:00 Est GFR ( Amer) 11 (> 60) L 08/09/18 03:00 Est GFR (Non-Af Amer) 9 (> 60) L 08/09/18 03:00 Glucose 126 mg/dL (70-105) H 08/09/18 03:00 POC Glucose 114 mg/dL (70-99) H 08/08/18 23:25 Calcium 10.8 mg/dL (8.6-10.3) H 08/09/18 03:00 Phosphorus 8.8 mg/dL (2.7-4.5) H 08/09/18 03:00 Troponin I 0.97 ng/mL (< 0.04) H* 08/04/18 14:04 Serum Total Protein 5.3 g/dL (6.4-8.9) L 08/09/18 03:00 Albumin 3.2 g/dL (3.5-5.7) L 08/09/18 03:00 Globulin 2.1 g/dL (2.4-3.5) L 08/09/18 03:00 PTH Intact 265.4 pg/ml (10.0-65.0) H 08/08/18 14:23 Fluid Appearance Cloudy (Clear) A 07/31/18 11:00 Nasal Screen MRSA (PCR) Positive (Negative) A 07/31/18 12:10 Staphylococcus sp PCR DETECTED (Not Detect) A 08/01/18 11:45 Staph aureus (PCR) DETECTED (Not Detect) A 08/01/18 11:45 mecA-Methicil Res Gene DETECTED (Not Detect) A 08/01/18 11:45 General appearance: Present: no acute distress - Respiratory Respiratory exam: Present: decreased breath sounds Additional comments: Occasional rhonchi Rt lung posteriorally - Cardiovascular Cardiovascular exam: Present: irregular rhythm - GI/Abdominal GI/Abdominal exam: Present: normal bowel sounds, soft - Extremities Exam Extremities exam: Present: normal capillary refill, normal inspection - Neurological Exam Neurological exam: Present: alert Additional comments: Oriented to name and place. Follows simple commands - Skin Skin exam: Present: dry, pallor, warm Palliative Quality Palliative Quality: Screen for Code Status: Yes, Screen for Goals of Care: Yes, Screen for Pain: Yes, If Pain Regimen Started, Initiate Bowel Regimen: NA, Screen for Nausea/Vomitting: Yes Code Status: 07/30/18 20:37 CODE [Resuscitation Status: Active] [RES] Routine Comment: Resuscitation Status: Full Code 08/04/18 15:45 DNR [Resuscitation Status: Active] [RES] Routine Comment: Resuscitation Status: DNR-Comfort Care-Arrest - Labs CBC & Chem 7: 08/09/18 03:00 08/09/18 03:00 Labs: Laboratory Results - last 24 hr 08/08/18 08/08/18 08/08/18 05:13 11:52 14:23 WBC RBC Hgb Hct MCV MCH MCHC RDW Plt Count MPV Immature Gran % Seg Neutrophils % Lymphocytes % Monocytes % Eosinophils % Basophils % Neutrophils # Lymphocytes # Monocytes # Eosinophils # Basophils # Platelet Estimate Sodium Potassium Chloride Carbon Dioxide BUN Creatinine Est GFR ( Amer) Est GFR (Non-Af Amer) BUN/Creatinine Ratio Glucose POC Glucose 175 H 118 H Calculated Osmolality Calcium Venous Ioniz Calcium Phosphorus Magnesium Total Bilirubin AST ALT Alkaline Phosphatase Serum Total Protein Albumin Globulin Albumin/Globulin Ratio 25-OH Vitamin D Total 46 PTH Intact Random Vancomycin 08/08/18 08/08/18 08/08/18 14:23 17:27 17:39 WBC RBC Hgb Hct MCV MCH MCHC RDW Plt Count MPV Immature Gran % Seg Neutrophils % Lymphocytes % Monocytes % Eosinophils % Basophils % Neutrophils # Lymphocytes # Monocytes # Eosinophils # Basophils # Platelet Estimate Sodium Potassium Chloride Carbon Dioxide BUN Creatinine Est GFR ( Amer) Est GFR (Non-Af Amer) BUN/Creatinine Ratio Glucose POC Glucose 116 H Calculated Osmolality Calcium Venous Ioniz Calcium 1.16 Phosphorus Magnesium Total Bilirubin AST ALT Alkaline Phosphatase Serum Total Protein Albumin Globulin Albumin/Globulin Ratio 25-OH Vitamin D Total PTH Intact 265.4 H Random Vancomycin 08/08/18 08/09/18 08/09/18 23:25 03:00 03:00 WBC 10.6 RBC 3.52 L Hgb 10.9 L Hct 33.8 L MCV 96.0 MCH 31.0 MCHC 32.2 RDW 14.6 H Plt Count 151 MPV 11.1 Immature Gran % 3.0 Seg Neutrophils % 93.8 Lymphocytes % 1.2 Monocytes % 1.7 Eosinophils % 0.0 Basophils % 0.3 Neutrophils # 9.9 H Lymphocytes # 0.1 L Monocytes # 0.2 Eosinophils # 0.0 Basophils # 0.0 Platelet Estimate Normal Sodium Potassium Chloride Carbon Dioxide BUN Creatinine Est GFR ( Amer) Est GFR (Non-Af Amer) BUN/Creatinine Ratio Glucose POC Glucose 114 H Calculated Osmolality Calcium Venous Ioniz Calcium Phosphorus Magnesium Total Bilirubin AST ALT Alkaline Phosphatase Serum Total Protein Albumin Globulin Albumin/Globulin Ratio 25-OH Vitamin D Total PTH Intact Random Vancomycin 16 08/09/18 08/09/18 03:00 03:31 WBC RBC Hgb Hct MCV MCH MCHC RDW Plt Count MPV Immature Gran % Seg Neutrophils % Lymphocytes % Monocytes % Eosinophils % Basophils % Neutrophils # Lymphocytes # Monocytes # Eosinophils # Basophils # Platelet Estimate Sodium 134 L Potassium 4.4 Chloride 93 L Carbon Dioxide 26 BUN 68 H Creatinine 4.81 H Est GFR ( Amer) 11 L Est GFR (Non-Af Amer) 9 L BUN/Creatinine Ratio 14 Glucose 126 H POC Glucose Calculated Osmolality 299 Calcium 10.8 H Venous Ioniz Calcium 1.25 Phosphorus 8.8 H Magnesium 2.3 Total Bilirubin 0.6 AST 16 ALT 33 Alkaline Phosphatase 72 Serum Total Protein 5.3 L Albumin 3.2 L Globulin 2.1 L Albumin/Globulin Ratio 1.5 25-OH Vitamin D Total PTH Intact Random Vancomycin - ABG Interpretation ABG results: ABG ABG pH 7.39 pH Units (7.32-7.45) 08/08/18 05:53 ABG pCO2 54 mmHg (35-45) H 08/08/18 05:53 ABG pO2 173 mmHg (85-104) H 08/08/18 05:53 ABG O2 Saturation 100 % (95-98) H 08/08/18 05:53 PT/INR, D-dimer PT 10.0 Seconds (9.4-12.1) 07/30/18 21:02 Consult Discharge Plan - Plan Referrals: Vladimir Chaidez MD [Primary Care Provider] -
[2018-08-09] MEDS ORDERED: *HR* Metoprolol 5 MG/5 ML VIAL IVP PRN (14:13)
[2018-08-09] MEDS ORDERED: *HR* Metoprolol 5 MG/5 ML VIAL IVP ONE (14:17)
[2018-08-09] MEDS: Phenylephrine 10 MG in D5% in Water 250 ML IVC SCH (15:37)
[2018-08-09] MEDS ORDERED: Vancomycin 500 MG in 0.9 % Sodium Chloride Mini Bag 100 ML IVPB ONE (16:00)
[2018-08-09] MEDS ORDERED: Nitroglycerin 0.4 MG TAB.SUBL SL PRN (16:27)
[2018-08-09] MEDS ORDERED: *HR* Dextrose 25% in Water (Syg) 10 ML SYRINGE IVP PRN (16:27)
[2018-08-09] MEDS ORDERED: traMADol 50 MG TABLET PO PRN ×2 (16:27)
[2018-08-09] MEDS ORDERED: Acetaminophen 325 MG TABLET PO PRN (16:27)
[2018-08-09] MEDS ORDERED: Vancomycin 1 EACH in 0.9 % Sodium Chloride 250 ML IVPB SCH (16:27)
[2018-08-09] MEDS ORDERED: Nitroglycerin 25 MG/250 ML INFUS..BTL IVC SCH (16:27)
[2018-08-09] MEDS: *HR* LORazepam 2 MG/ML VIAL IVP PRN (17:41)
[2018-08-09] MEDS ORDERED: Furosemide 20 MG TABLET PO SCH (18:00)
[2018-08-09] MEDS: *HR* Metoprolol 5 MG/5 ML VIAL IVP PRN (18:26)
[2018-08-10] MEDS: *HR* LORazepam 2 MG/ML VIAL IVP PRN ×3 (02:18→20:43)
[2018-08-10] MEDS: Acetylcysteine 10% 2 ML INHSOL IH SCH ×4 (03:31→21:30)
[2018-08-10] MEDS: Ipratropium/Albuterol Neb 3 ML IH SCH ×4 (03:31→21:30)
[2018-08-10 04:26] LABS: ABG Base Excess 6 mEq/L (-2 to 3); ABG HCO3 31 mEq/L (21-27); ABG Oxygen Saturation 95 % (95-98); ABG PCO2 48 mmHg (35-45); ABG PH 7.42 pH Units (7.32-7.45); ABG PO2 75 mmHg (85-104); ABG TCO2 33 mEq/L (20-26)
[2018-08-10 05:14] LABS: Basophils # 0.1 K/mcL (0.0-0.2); Basophils % 0.7 %; Eosinophils % 0.1 %; Hematocrit 37.2 % (35.3-44.9); Hemoglobin 12.1 g/dL (11.5-15.4); Immature Granulocytes % 4.8 % (0-4); Lymphocytes # 0.3 K/mcL (0.6-4.6); Lymphocytes % 2.5 %; Mean Corpuscular HGB Conc 32.5 g/dL (31.6-35.5); Mean Corpuscular Hemoglobin 31.3 pg (28.0-33.3); Mean Corpuscular Volume 96.1 fL (83.0-100.0); Mean Platelet Volume 10.5 fL (9.4-12.4); Monocytes # 0.8 K/mcL (0.0-1.3); Monocytes % 6.9 %; Neutrophils # 10.4 K/mcL (1.6-8.9); Platelet Count 189 K/mcL (140-400); Red Blood Count 3.87 M/mcL (3.82-4.97); Red Cell Distribution Width 14.4 % (11.5-14.5)
[2018-08-10 05:33] LABS: Albumin 3.4 g/dL (3.5-5.7); Albumin/Globulin Ratio 1.5 (1.1-2.2); Bilirubin,Total 0.7 mg/dL (0.3-1.0); Calcium 11.2 mg/dL (8.6-10.3); Globulin 2.3 g/dL (2.4-3.5); Magnesium 2.2 mg/dL (1.6-2.6); Phosphorous 5.8 mg/dL (2.7-4.5); Potassium 4.1 mEq/L (3.5-5.1); Total Protein 5.7 g/dL (6.4-8.9)
[2018-08-10] MEDS: *HR* Heparin 5,000 UNIT/ML VIAL SQ SCH ×2 (06:10→17:56)
[2018-08-10] MEDS ORDERED: traMADol 50 MG TABLET PO PRN (07:27)
[2018-08-10] MEDS ORDERED: Vancomycin 1 EACH in 0.9 % Sodium Chloride 250 ML IVPB PRN (07:30)
[2018-08-10] MEDS: predniSONE 20 MG TABLET PO SCH (08:03)
[2018-08-10] MEDS: *HR* Metoprolol 5 MG/5 ML VIAL IVP PRN ×2 (08:21→09:09)
[2018-08-10] MEDS ORDERED: Lactobacillus 1 EACH CAP.SPRINK PO SCH (09:00)
[2018-08-10] MEDS ORDERED: Aspirin 81 MG TAB.CHEW PO SCH (09:00)
[2018-08-10] MEDS ORDERED: Renal Vitamin 1 CAP CAPSULE PO SCH (09:00)
[2018-08-10] MEDS ORDERED: Furosemide 40 MG TABLET PO SCH (09:00)
[2018-08-10] MEDS ORDERED: Levothyroxine Sodium 100 MCG VIAL IVP SCH (09:00)
--- NOTE | 2018-08-10 09:24 | Internal Med Progress Note ---
Hospitalist Progress Note - Encounter Date of Encounter: 08/10/18 Time of Encounter: 09:23 - Subjective Interval History: Patient seen and examined this morning. Unclear overnight events. Tachycardic, hypertensive and short of breath this morning. On Bipap. Impoved after fixing bipap leak, Labetalol and Push. Confused and could not offer comprehensible complains. - Exam Vitals: Temp Pulse Resp BP Pulse Ox 98.4 F 121 20 191/101 94 08/10/18 07:14 08/10/18 07:14 08/10/18 07:14 08/10/18 07:14 08/10/18 07:14 Exam: General: In no acute distress. In acute respiratory distress on Bipap Respiratory exam: Decrease air entry bilaterally. Crackle bilaterally. Tachypnic with RR of 34 Cardiovascular exam: tachycardic, +S1, +S2 normal. no murmur, gallop, rubs. GI/Abdominal exam: Non-tender, Non-distended, normal bowel sounds, soft, no peritoneal signs. Extremities exam: full ROM, 1+ pedal edema, bluish extremities b/l lower extremities. no calf tenderness Neurological exam: confused, Moving all extremities. Skin exam: No skin ulcers noted - Assessment and Plan (1) Acute respiratory distress Current Visit: No Status: Acute (2) ESRD on dialysis Current Visit: Yes Status: Chronic (3) COPD (chronic obstructive pulmonary disease) Current Visit: Yes Status: Chronic (4) HTN (hypertension) Current Visit: No Status: Chronic (5) Hyperkalemia Current Visit: Yes Status: Chronic (6) Volume overload Current Visit: Yes Status: Acute - Summary of Assessment and Plan Summary of Assessment and Plan: Acute on chronic respiratory failure - Likely multifactorial from COPD, PNA, CHF and severe tracheomalacia with mucus plugging - Patient at risk of recurrent mucus plugging. c/w pulmonary toilet. Palliative care consulted to assist with goals of care. Patient wants intubation if needed. - c/w duonebs, Prednisone and symbicort - c/w lasix Sepsis - Resolved - Likely secondary to MRSA bacteremia and pneumonia. - Blood cultures growing MRSA from 07/30/18. Blood culture NGTD from 08/02/18 - c/w vancomycin - TTE negative for vegetation but suboptimal. Will need a [place] prior to discharge when stable from respiratory standpoint. - ID following HCAP - s/p bronchoscopy 07/31/18 that showed mucupurulent secretions and mucous plugging. cultures with No growth. - respiratory panel negative - f/u CXR with increasing bilateral atelectasis - Restarted on Re-start Levaquin and Zosyn - Will need prolonged course. - ID recommendation appreciated HTN - Significantly elevated this morning on cardizem drip. - Was not getting PO metoprolol as she is bipap - Will switch metoprolol to IV. Prn labetalol 5mg q6prn. - prn hydralazine if HR controlled. - Was also started on nitroglycerin drip yesterday but never started. Will discontinue Afib with RVR - Started on cardizem this morning for rate control - Will switch metoprolol to IV and titrate off cardizem. - Not on AC. Unclear why. Will review previous records. Elevated troponin - suspected demand ischemia - Will continue ASA, BB. - TTE with EF 65%, No WMA, mild LVH, mild DD, mild , mild to moderate PAH. - Cadiology following - Will consider ischemic evaluation once acute illness resolves. ESRD on dialysis - Nephrology consulted and following. - Time Spent with Patient Total time spent is greater than 50% in coordination of care (as documented) at patient's floor/unit and/or counseling patient: Internal Medicine: Result - Labs CBC & Chem 7: 08/10/18 04:57 08/10/18 04:57 Labs: Short CBC 08/10/18 Range/Units 04:57 WBC 12.2 H (4.3-11.1) K/mcL Hgb 12.1 (11.5-15.4) g/dL Hct 37.2 (35.3-44.9) % Plt Count 189 (140-400) K/mcL Neutrophils # 10.4 H (1.6-8.9) K/mcL BMP 08/10/18 04:57 Sodium 138 Potassium 4.1 Chloride 96 L Carbon Dioxide 26 BUN 43 H Creatinine 3.56 H Glucose 81 Calcium 11.2 H Liver Function 08/10/18 Range/Units 04:57 Total Bilirubin 0.7 (0.3-1.0) mg/dL AST 21 (13-39) Units/L ALT 33 (7-52) Units/L Alkaline Phosphatase 89 (34-104) Units/L Albumin 3.4 L (3.5-5.7) g/dL - ABG Interpretation ABG results: ABG ABG pH 7.42 pH Units (7.32-7.45) 08/10/18 04:20 ABG pCO2 48 mmHg (35-45) H 08/10/18 04:20 ABG pO2 75 mmHg (85-104) L 08/10/18 04:20 ABG O2 Saturation 95 % (95-98) 08/10/18 04:20 PT/INR, D-dimer PT 10.0 Seconds (9.4-12.1) 07/30/18 21:02 Consult Discharge Plan - Plan Referrals: Vladimir Chaidez MD [Primary Care Provider] - (3) COPD (chronic obstructive pulmonary disease) Qualifiers: COPD type: COPD with acute exacerbation Qualified Code(s): J44.1 - Chronic obstructive pulmonary disease with (acute) exacerbation (4) HTN (hypertension) Qualifiers: Hypertension type: essential hypertension Qualified Code(s): I10 - Essential (primary) hypertension (6) Volume overload Qualifiers: Hypervolemia type: unspecified Qualified Code(s): E87.70 - Fluid overload, unspecified
--- NOTE | 2018-08-10 10:25 | Nephrology Progress Note ---
Addendum entered and electronically signed by Alexander Goodman MD 08/10/18 23:51: I examined this patient and discussed the medical decision-making with YANETH Bai. I agree with the documented findings, disposition and treatment plan as described except to the extent set forth below. Original Note: Date of Encounter: 08/10/18 Time of Encounter: 10:22 - Assessment and Plan (1) ESRD on dialysis Current Visit: Yes Status: Chronic Current regimen is MWF with Van. Last HD session Tuesday without complication. Avoid nephrotoxins and renal dose. Strict I/O Plan for HD tomorrow. (2) HTN (hypertension) Current Visit: No Status: Chronic 173/97, stable. Qualifiers: Hypertension type: essential hypertension Qualified Code(s): I10 - Essential (primary) hypertension (3) Anemia in chronic kidney disease (CKD) Current Visit: No Status: Chronic Goal Hgb is 10-11: will monitor. Hgb is 12.1, stable. Qualifiers: Chronic kidney disease stage: on chronic dialysis Qualified Code(s): N18.6 - End stage renal disease; D63.1 - Anemia in chronic kidney disease; D63.1 - Anemia in chronic kidney disease; Z99.2 - Dependence on renal dialysis; Z99.2 - Dependence on renal dialysis; Z99.2 - Dependence on renal dialysis; Z99.2 - Dependence on renal dialysis (4) Acute and chronic respiratory failure Current Visit: No Status: Acute Per primary. Qualifiers: Respiratory failure complication: hypoxia Qualified Code(s): J96.21 - Acute and chronic respiratory failure with hypoxia (5) Hyperkalemia Current Visit: Yes Status: Chronic Acute on chronic and recurrentl: I recommend a Low K+ (i.e. Renal) Diet when ever her diet is resumed. (6) Hyperphosphatemia Current Visit: No Status: Chronic Acute on chronic and worsening. Renal diet that is low in Phos is recommended. She is currently intubated so not able to add Phos binders presently. Subjective Principal diagnosis: ESRD Interval history: Pt seen and examined doing well. Denies CP, admits to SOB. Denies nausea/vomiting/diarrhea. Is resting comfortably on the Bipap. Objective - Vital Signs Vital signs: Vital Signs Temp Pulse Resp BP Pulse Ox 08/10/18 07:14 98.4 F 121 20 191/101 94 08/10/18 03:42 98.2 F 123 28 192/109 96 08/10/18 03:31 30 92 08/09/18 23:50 98.1 F 121 24 173/97 88 08/09/18 22:35 12 94 08/09/18 20:09 98.7 F 125 145/86 93 08/09/18 16:42 97.9 F 107 19 169/79 91 08/09/18 15:54 20 95 08/09/18 15:15 97.7 F 17 173/89 08/09/18 15:05 152/99 08/09/18 15:00 106 16 176/90 95 08/09/18 14:50 167/93 08/09/18 14:35 168/104 08/09/18 14:20 148/126 08/09/18 14:05 186/94 08/09/18 13:50 181/80 08/09/18 13:35 178/74 08/09/18 13:20 179/74 08/09/18 13:05 186/73 08/09/18 13:00 62 16 188/75 95 08/09/18 12:50 189/78 08/09/18 12:35 181/78 08/09/18 12:20 165/70 08/09/18 12:05 97.8 F 19 159/64 08/09/18 11:19 97.8 F Intake and Output 08/09/18 08/10/18 08/10/18 23:59 07:59 15:59 Intake Total 18.7 / 18.7 0 / 0 Balance 18.7 / 18.7 0 / 0 Intake: IV Fluids 18.7 / 18.7 0 / 0 Cardizem 50 MG In 0.9 % Sodium 18.7 / 18.7 0 / 0 Chloride 40 ML @ 5 MG/HR 5 mls/ hr IVC .Q10H [facility] Rx#:[id number] Other: Meal Breakfast Percent of Meal Consumed 0% - General Appearance General appearance: Present: well-developed, well-nourished EENT: Present: ATNC, hearing intact, vision intact Neck: Present: supple Respiratory: Present: clear Cardiology: Present: no edema, normal S1, normal S2 Dialysis Vascular Access: Arteriovenous Fistula thrill: Yes bruit: Yes Gastrointestinal: Present: normoactive bowel sounds, no tenderness, no guarding Integumentary: Present: no rash, warm and dry Neurologic: Present: alert and oriented x3 Psychiatric: Present: mood/affect appropriate, cooperative - Lab 08/10/18 04:57 08/10/18 04:57 Most recent lab results ABG pH 7.42 pH Units (7.32-7.45) 08/10/18 04:20 ABG pCO2 48 mmHg (35-45) H 08/10/18 04:20 ABG pO2 75 mmHg (85-104) L 08/10/18 04:20 ABG HCO3 31 mEq/L (21-27) H 08/10/18 04:20 ABG O2 Saturation 95 % (95-98) 08/10/18 04:20 Calcium 11.2 mg/dL (8.6-10.3) H 08/10/18 04:57 Phosphorus 5.8 mg/dL (2.7-4.5) H 08/10/18 04:57 Magnesium 2.2 mg/dL (1.6-2.6) 08/10/18 04:57 Consult Discharge Plan - Plan Referrals: Vladimir Chaidez MD [Primary Care Provider] -
[2018-08-10] MEDS: Budesonide/Formoterol 160/4.5 1 PUFF INH IH SCH ×2 (10:49→21:29)
--- NOTE | 2018-08-10 11:50 | Infectious Disease Progress No ---
Date of Encounter: 08/10/18 Time of Encounter: 10:15 - Assessment and Plan (1) Sepsis Current Visit: Yes Status: Resolved The patient had two sepsis criteria on admission. Likely secondary to MRSA bacteremia and pneumonia. Improved. WBC normalized, initially, but back up today. Tachycardia recurred overnight. Afebrile. Peripheral blood cultures drawn 07/30/18 are positive 2/2 sets for MRSA. Repeat blood cultures drawn 08/01/18 are positive 1/2 sets. Repeat blood cultures drawn 08/02/18 are negative x 2 sets. Qualifiers: Sepsis type: methicillin resistant Staphylococcus aureus Qualified Code(s): A41.02 - Sepsis due to Methicillin resistant Staphylococcus aureus (2) Bacteremia Current Visit: Yes Status: Acute Causative organism: MRSA. Source: Unclear, but possibly PNA although her BAL cultures are negative vs. AV fistula although no clinical evidence of cellulitis. Peripheral blood cultures drawn 07/30/18 are positive 2/2 sets for MRSA. Repeat blood cultures drawn 08/01/18 are positive 1/2 sets. Repeat blood cultures drawn 08/02/18 are negative x 2 sets. Complicated due to the lack of identified source. No hardware/pacemaker or evidence of metastatic infection. 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 No endocarditis stigmata noted on exam. TTE was suboptimal due to poor windows, but negative for vegetations. She will likely need a [place] prior to discharge if able to be done given her compromised respiratory status. Check rhuematoid factor.--> <10. Continue Vancomycin IV. Pharmacy to dose. Goal trough ~15. Duration of treatment depends on the clinical picture. If unable to perform [place], will plan to treat for 4 weeks with IV antibiotics. Monitor labs for drug toxicity and dose-adjust antibiotics. (3) HCAP (healthcare-associated pneumonia) Current Visit: No Status: Acute Location: LUP, RML, RLL per bronchoscopy. Causative organism: Unclear. The patient has had multiple bronchoscopies in the past with previous cultures positive for Aspergillus fumigatus (05/03/18), Stenotrophomonas maltophilia (03/28/18), MRSA (02/17/18), and Serratia marcescens (11/25/17). CXR and CT chest findings noted and reviewed. Status post bronchoscopy 07/31/18 that showed mucupurulent secretions and mucous plugging. BAL cultures are no growth. Pathology/cytology pending. RIP negative. Strep pneumo and Legionella UATs were not collected since the patient is anuric secondary to ESRD. Repeat CXR 08/03/18 showed mild hazy bibasilar opacities consistent with pleural effusion and partial atelectasis. Clinically, respiratory status declined overnight. Recommend pulmonology to re-evaluate. Repeat CXR. Continue Vancomycin IV. Pharmacy to dose. Goal trough ~15. Re-start Levaquin 500mg IV Q48H. Re-start Zosyn 3.375 grams IV Q12H. Duration of treatment depends on the clinical picture, but will require a prolonged course of IV Vanc due to bacteremia. Monitor labs and for drug toxicity and dose-adjust antibiotics. (4) Acute exacerbation of chronic obstructive airways disease Current Visit: No Status: Acute Likely contributing to the patient's acute respiratory failure. Supportive care per the primary and pulmonology teams. (5) Acute and chronic respiratory failure with hypoxia Current Visit: Yes Status: Acute Likely multifactorial: pneumonia + COPD exacerbation + fluid volume overload. Intubated 07/30/18. Extubated 07/31/18. Re-intubated 08/06/18. Extubated 08/08/18. Currently on BIPAP. Repeat CXR now. Ask pulmonology to re-evaluate. Palliative care consulted to assist with goals of care. Further management per the pulmonary team. (6) Elevated troponin Current Visit: Yes Status: Acute Etiology unclear. Cadiology consulted. Further workup and management per the primary team. (7) Pulmonary edema Current Visit: No Status: Acute Qualifiers: Chronicity: acute Qualified Code(s): J81.0 - Acute pulmonary edema (8) COPD (chronic obstructive pulmonary disease) Current Visit: Yes Status: Chronic Qualifiers: COPD type: COPD with acute exacerbation Qualified Code(s): J44.1 - Chronic obstructive pulmonary disease with (acute) exacerbation (9) HTN (hypertension) Current Visit: No Status: Chronic Qualifiers: Hypertension type: essential hypertension Qualified Code(s): I10 - Essential (primary) hypertension (10) ESRD on dialysis Current Visit: Yes Status: Chronic Nephrology consulted and following. 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 - Subjective Interval history: Patient seen and examined. Overnight, the patient became dyspneic and tachycardic and went back into A. fib RVR. She was restarted on a Cardizem drip and placed on BiPAP. During my exam, the patient is tachypneic. She is somewhat lethargic and difficult to maintain a wakeful state. She does deny shortness of breath. She does have a moist cough on exam. She denies any nausea or vomiting or diarrhea. She received dialysis yesterday. Per nursing, there has not been any final determination as to what the plan is for her long- term, but the patient has stated that she does not want to stop dialysis. Infect Dis PN-Objective Data - Labs CBC & Chem 7: 08/11/18 05:46 08/11/18 05:46 Labs: Laboratory Results - last 24 hr 08/09/18 08/10/18 08/10/18 10:59 04:20 04:57 WBC 12.2 H RBC 3.87 Hgb 12.1 Hct 37.2 MCV 96.1 MCH 31.3 MCHC 32.5 RDW 14.4 Plt Count 189 MPV 10.5 Immature Gran % 4.8 H Seg Neutrophils % 85.0 Lymphocytes % 2.5 Monocytes % 6.9 Eosinophils % 0.1 Basophils % 0.7 Neutrophils # 10.4 H Lymphocytes # 0.3 L Monocytes # 0.8 Eosinophils # 0.0 Basophils # 0.1 Sample Site R Radial ABG pH 7.42 ABG pCO2 48 H ABG pO2 75 L ABG HCO3 31 H ABG Total CO2 33 H ABG O2 Saturation 95 ABG Base Excess 6 H Ge Test N/A O2 Delivery Device Cannula Inspired O2 35.0 Sodium Potassium Chloride Carbon Dioxide BUN Creatinine Est GFR ( Amer) Est GFR (Non-Af Amer) BUN/Creatinine Ratio Glucose POC Glucose 120 H Calculated Osmolality Calcium Phosphorus Magnesium Total Bilirubin AST ALT Alkaline Phosphatase Serum Total Protein Albumin Globulin Albumin/Globulin Ratio 08/10/18 04:57 WBC RBC Hgb Hct MCV MCH MCHC RDW Plt Count MPV Immature Gran % Seg Neutrophils % Lymphocytes % Monocytes % Eosinophils % Basophils % Neutrophils # Lymphocytes # Monocytes # Eosinophils # Basophils # Sample Site ABG pH ABG pCO2 ABG pO2 ABG HCO3 ABG Total CO2 ABG O2 Saturation ABG Base Excess Ge Test O2 Delivery Device Inspired O2 Sodium 138 Potassium 4.1 Chloride 96 L Carbon Dioxide 26 BUN 43 H Creatinine 3.56 H Est GFR ( Amer) 15 L Est GFR (Non-Af Amer) 12 L BUN/Creatinine Ratio 12 Glucose 81 POC Glucose Calculated Osmolality 296 Calcium 11.2 H Phosphorus 5.8 H Magnesium 2.2 Total Bilirubin 0.7 AST 21 ALT 33 Alkaline Phosphatase 89 Serum Total Protein 5.7 L Albumin 3.4 L Globulin 2.3 L Albumin/Globulin Ratio 1.5 Cultures: Cultures 07/31/18 10:57 Legionella Culture - Final Left Upper Lobe Lung Legionella Culture - Preliminary 07/31/18 11:00 Legionella Culture - Final Right Middle Lobe Lung Legionella Culture - Preliminary 08/02/18 14:24 Blood Culture - Final Peripheral Venipuncture No growth. Final report. 08/02/18 14:23 Blood Culture - Final Peripheral Venipuncture No growth. Final report. 08/01/18 11:45 Blood Culture - Final Peripheral Venipuncture No growth. Final report. 07/30/18 21:02 Blood Culture - Final Peripheral Venipuncture Methicillin Resistant S.aureus 08/01/18 11:45 Blood Culture - Final Peripheral Venipuncture Methicillin Resistant S.aureus 07/31/18 05:30 Sputum Culture - Final Sputum 07/31/18 10:57 Respiratory Culture - Final Left Upper Lobe Lung 07/31/18 11:00 Respiratory Culture - Final Right Middle Lobe Lung 07/30/18 21:02 Blood Culture - Final Peripheral Venipuncture Methicillin Resistant S.aureus 07/31/18 11:00 Acid Fast Stain - Final Right Middle Lobe Lung 07/31/18 10:57 Acid Fast Stain - Final Left Upper Lobe Lung Serology 08/01/18 07/31/18 07/31/18 Range/Units 11:45 12:10 12:10 Fluid Source Fluid Volume mL Fluid Appearance (Clear) Fluid RBC Fld Tot Nucleated Cell Fluid Seg Neutrophil % % Fld Band Neutrophil % Fluid Lymphocytes % Fluid Monocytes % Fluid Eosinophils % Fluid Basophils % Fluid Other Cells % % Nasal Screen MRSA (PCR) Positive A (Negative) A. baumannii (PCR) Not Detected (Not Detect) Chlamy pneumoniae PCR Not Detected (Not Detect) Adenovirus (PCR) Not Detected (Not Detect) B. pertussis DNA (PCR) Not Detected (Not Detect) B.parapertussis DNA PCR Not Detected (Not Detect) Priyanka albicans (PCR) Not Detected (Not Detect) C. glabrata (PCR) Not Detected (Not Detect) C. krusei (PCR) Not Detected (Not Detect) C. parapsilosis (PCR) Not Detected (Not Detect) C. tropicalis (PCR) Not Detected (Not Detect) Coronavirus OC43 (PCR) Not Detected (Not Detect) Coronavirus HKU1 (PCR) Not Detected (Not Detect) Coronavirus 229E (PCR) Not Detected (Not Detect) Coronavirus NL63 (PCR) Not Detected (Not Detect) Enterobacteriac sp PCR Not Detected (Not Detect) E. cloacae complex PCR Not Detected (Not Detect) Enterococcus sp PCR Not Detected (Not Detect) E. coli (PCR) Not Detected (Not Detect) H. influenzae (PCR) Not Detected (Not Detect) Hep Bs Antigen (Nonreactive) Hep Bs Antibody mIU/mL Human Metapneumovir PCR Not Detected (Not Detect) Influenza A (H1) PCR Not Detected (Not Detect) Influ A (H1N1/09) PCR Not Detected (Not Detect) Influenza A (H3) PCR Not Detected (Not Detect) Influenza A Untype (PCR) Not Detected (Not Detect) Influenza Type B (PCR) Not Detected (Not Detect) Klebsiella oxytoca PCR Not Detected (Not Detect) Klebsiella pneumoniae Not Detected (Not Detect) List. monocytogenes PCR Not Detected (Not Detect) Mycoplasma pneumon IgG (<=0.09) U/L Mycoplasma pneumon IgM (<=0.76) U/L M.pneumoniae DNA (PCR) Not Detected (Not Detect) N. meningitidis (PCR) Not Detected (Not Detect) Parainfluenza 1 (PCR) Not Detected (Not Detect) Parainfluenza 2 (PCR) Not Detected (Not Detect) Parainfluenza 3 (PCR) Not Detected (Not Detect) Parainfluenza 4 (PCR) Not Detected (Not Detect) Proteus species (PCR) Not Detected (Not Detect) RSV (PCR) Not Detected (Not Detect) Entero/Rhino (PCR) Not Detected (Not Detect) Serratia marcescens PCR Not Detected (Not Detect) Staphylococcus sp PCR DETECTED A (Not Detect) Staph aureus (PCR) DETECTED A (Not Detect) mecA-Methicil Res Gene DETECTED A (Not Detect) Streptococcus sp PCR Not Detected (Not Detect) Group A Strep DNA Not Detected (Not Detect) Group B Strep (PCR) Not Detected (Not Detect) Strep pneumoniae (PCR) Not Detected (Not Detect) P. aeruginosa (PCR) Not Detected (Not Detect) Sydney/B-Vanco Res Genes N/A (Not Detect) KPC (blaKPC) Detect PCR N/A (Not Detect) 07/31/18 07/31/18 07/31/18 Range/Units 11:00 10:57 08:37 Fluid Source right middle lobe keegan left upper lobe lung Fluid Volume 17 16 mL Fluid Appearance Cloudy A Cloudy A (Clear) Fluid RBC TNP TNP Fld Tot Nucleated Cell TNP TNP Fluid Seg Neutrophil % 84.6 92.3 % Fld Band Neutrophil % TNP TNP Fluid Lymphocytes % TNP TNP Fluid Monocytes % TNP TNP Fluid Eosinophils % TNP TNP Fluid Basophils % TNP TNP Fluid Other Cells % 15.4 7.7 % Nasal Screen MRSA (PCR) (Negative) A. baumannii (PCR) (Not Detect) Chlamy pneumoniae PCR (Not Detect) Adenovirus (PCR) (Not Detect) B. pertussis DNA (PCR) (Not Detect) B.parapertussis DNA PCR (Not Detect) Priyanka albicans (PCR) (Not Detect) C. glabrata (PCR) (Not Detect) C. krusei (PCR) (Not Detect) C. parapsilosis (PCR) (Not Detect) C. tropicalis (PCR) (Not Detect) Coronavirus OC43 (PCR) (Not Detect) Coronavirus HKU1 (PCR) (Not Detect) Coronavirus 229E (PCR) (Not Detect) Coronavirus NL63 (PCR) (Not Detect) Enterobacteriac sp PCR (Not Detect) E. cloacae complex PCR (Not Detect) Enterococcus sp PCR (Not Detect) E. coli (PCR) (Not Detect) H. influenzae (PCR) (Not Detect) Hep Bs Antigen (Nonreactive) Hep Bs Antibody mIU/mL Human Metapneumovir PCR (Not Detect) Influenza A (H1) PCR (Not Detect) Influ A (H1N1/09) PCR (Not Detect) Influenza A (H3) PCR (Not Detect) Influenza A Untype (PCR) (Not Detect) Influenza Type B (PCR) (Not Detect) Klebsiella oxytoca PCR (Not Detect) Klebsiella pneumoniae (Not Detect) List. monocytogenes PCR (Not Detect) Mycoplasma pneumon IgG 0.04 (<=0.09) U/L Mycoplasma pneumon IgM 0.05 (<=0.76) U/L M.pneumoniae DNA (PCR) (Not Detect) N. meningitidis (PCR) (Not Detect) Parainfluenza 1 (PCR) (Not Detect) Parainfluenza 2 (PCR) (Not Detect) Parainfluenza 3 (PCR) (Not Detect) Parainfluenza 4 (PCR) (Not Detect) Proteus species (PCR) (Not Detect) RSV (PCR) (Not Detect) Entero/Rhino (PCR) (Not Detect) Serratia marcescens PCR (Not Detect) Staphylococcus sp PCR (Not Detect) Staph aureus (PCR) (Not Detect) mecA-Methicil Res Gene (Not Detect) Streptococcus sp PCR (Not Detect) Group A Strep DNA (Not Detect) Group B Strep (PCR) (Not Detect) Strep pneumoniae (PCR) (Not Detect) P. aeruginosa (PCR) (Not Detect) Sydney/B-Vanco Res Genes (Not Detect) KPC (blaKPC) Detect PCR (Not Detect) 07/30/18 07/30/18 Range/Units 21:02 17:51 Fluid Source Fluid Volume mL Fluid Appearance (Clear) Fluid RBC Fld Tot Nucleated Cell Fluid Seg Neutrophil % % Fld Band Neutrophil % Fluid Lymphocytes % Fluid Monocytes % Fluid Eosinophils % Fluid Basophils % Fluid Other Cells % % Nasal Screen MRSA (PCR) (Negative) A. baumannii (PCR) Not Detected (Not Detect) Chlamy pneumoniae PCR (Not Detect) Adenovirus (PCR) (Not Detect) B. pertussis DNA (PCR) (Not Detect) B.parapertussis DNA PCR (Not Detect) Priyanka albicans (PCR) Not Detected (Not Detect) C. glabrata (PCR) Not Detected (Not Detect) C. krusei (PCR) Not Detected (Not Detect) C. parapsilosis (PCR) Not Detected (Not Detect) C. tropicalis (PCR) Not Detected (Not Detect) Coronavirus OC43 (PCR) (Not Detect) Coronavirus HKU1 (PCR) (Not Detect) Coronavirus 229E (PCR) (Not Detect) Coronavirus NL63 (PCR) (Not Detect) Enterobacteriac sp PCR Not Detected (Not Detect) E. cloacae complex PCR Not Detected (Not Detect) Enterococcus sp PCR Not Detected (Not Detect) E. coli (PCR) Not Detected (Not Detect) H. influenzae (PCR) Not Detected (Not Detect) Hep Bs Antigen Nonreactive (Nonreactive) Hep Bs Antibody 1.25 mIU/mL Human Metapneumovir PCR (Not Detect) Influenza A (H1) PCR (Not Detect) Influ A (H1N1/09) PCR (Not Detect) Influenza A (H3) PCR (Not Detect) Influenza A Untype (PCR) (Not Detect) Influenza Type B (PCR) (Not Detect) Klebsiella oxytoca PCR Not Detected (Not Detect) Klebsiella pneumoniae Not Detected (Not Detect) List. monocytogenes PCR Not Detected (Not Detect) Mycoplasma pneumon IgG (<=0.09) U/L Mycoplasma pneumon IgM (<=0.76) U/L M.pneumoniae DNA (PCR) (Not Detect) N. meningitidis (PCR) Not Detected (Not Detect) Parainfluenza 1 (PCR) (Not Detect) Parainfluenza 2 (PCR) (Not Detect) Parainfluenza 3 (PCR) (Not Detect) Parainfluenza 4 (PCR) (Not Detect) Proteus species (PCR) Not Detected (Not Detect) RSV (PCR) (Not Detect) Entero/Rhino (PCR) (Not Detect) Serratia marcescens PCR Not Detected (Not Detect) Staphylococcus sp PCR DETECTED A (Not Detect) Staph aureus (PCR) DETECTED A (Not Detect) mecA-Methicil Res Gene DETECTED A (Not Detect) Streptococcus sp PCR Not Detected (Not Detect) Group A Strep DNA Not Detected (Not Detect) Group B Strep (PCR) Not Detected (Not Detect) Strep pneumoniae (PCR) Not Detected (Not Detect) P. aeruginosa (PCR) Not Detected (Not Detect) Sydney/B-Vanco Res Genes Not Detected (Not Detect) KPC (blaKPC) Detect PCR Not Detected (Not Detect) Exam - Constitutional Vitals: Temp Pulse Resp BP Pulse Ox 97.9 F 125 20 184/108 94 08/10/18 11:18 08/10/18 11:18 08/10/18 11:18 08/10/18 11:18 08/10/18 11:18 General appearance: average body habitus, cooperative, no acute distress - Head Head exam: Present: atraumatic, normal inspection, normocephalic - Eye Eye exam: Present: EOMI, normal appearance, PERRL Pupils: Present: normal accommodation Additional comments: No subconjunctival hemorrhage noted. - ENT ENT exam: Present: mucous membranes moist - Neck Neck exam: Present: normal inspection - Respiratory Respiratory exam: Present: rhonchi (Throughout), tachypnea. Absent: wheezes - Cardiovascular Cardiovascular exam: Present: irregular rhythm, tachycardia - GI/Abdominal GI/Abdominal exam: Present: normal bowel sounds, soft. Absent: distended, tenderness - Extremities Exam Extremities exam: Present: normal inspection. Absent: joint swelling, pedal edema, tenderness - Neurological Exam Neurological exam: Present: alert, oriented X3, no focal deficits - Psychiatric Psychiatric exam: Present: normal affect, normal mood - Skin Skin exam: Present: dry, intact, normal color, warm Consult Discharge Plan - Plan Referrals: Vladimir Chaidez MD [Primary Care Provider] - - Attending Attestation I examined this patient and my medical decision-making was reviewed with the Resident Physician. I agree with the documented findings, disposition and treatment plan as described except to the extent set forth below.
--- NOTE | 2018-08-10 12:10 | Event Note ---
Date of Encounter: 08/10/18 Time of Encounter: 11:50 Patient with increased respiratory distress this am - placed on bipap. Tachycardia as well - on cardizem drip and increased blood pressure. Was very anxious and Lorazepam was given. She is resting quietly at this time, so I did not disturb her. Heart rate improved. Did speak with son at bedside again r/t increased distress within 48 hours of extubation, and again discussed that tracheostomy would be best option to maintain adequate airway, unless she transitioned to hospice. Son/daughter verbalized understanding - she states he doesn't think that she is comprehending much with these discussion. Asked that they further discuss as a family. He has concerns regarding his father caring for her with trach. Will continue to follow.
[2018-08-10] MEDS ORDERED: *HR* Labetalol 20 MG/4 ML SYRINGE IVP PRN (12:29)
[2018-08-10] MEDS ORDERED: Levofloxacin 500 MG/100 ML 500 MG/100 ML BAG IVPB SCH (13:00)
[2018-08-10] MEDS: Piperacillin/Tazobactam 3.375 GM in 0.9 % Sodium Chloride Mini Bag 100 ML IVPB SCH (13:55)
--- NOTE | 2018-08-10 15:25 | Pulmonology Progress Note ---
Date of Encounter: 08/10/18 Time of Encounter: 07:50 Assessment and Plan (1) Mucus plugging of bronchi Current Visit: Yes Status: Chronic This patient having recurrent mucous plugging of the airway which lead to acute distress and I have evaluated patient twice with some improvement. Family at the bedside and noninvasive ventilation on and off with chest physical therapy and bronchodilators. It would not surprise me if patient condition deteriorate again and ends up on invasive mechanical ventilation. (2) Acute respiratory distress Current Visit: No Status: Acute Continue noninvasive ventilation as tolerated and that is by itself it could be problematic due to not being able to clear airway and pulmonary toilet that site needs to be intermittent and chest physical therapy in between. Subjective Principal diagnosis: ESRD Interval history: Patient was transferred out of ICU and I was called by the nurse that her condition is worsening and requiring noninvasive ventilation with agitation and hypertension. Subsequently patient has improved and tolerating noninvasive ventilation. Objective PUL Vital signs: Last Vital Signs Temp 97.9 F 08/10/18 11:18 Pulse 125 08/10/18 11:18 Resp 20 08/10/18 11:18 BP 190/90 08/10/18 12:21 Pulse Ox 94 08/10/18 11:18 General appearance: appears uncomfortable Eyes: nonicteric Neck: supple Effort: mildly labored Auscultation: bilateral: diminished breath sounds Percussion: bilateral: not dull Cardiovascular: irregular rhythm, murmur noted Gastrointestinal: normoactive bowel sounds Extremities: cyanosis, edema non-focal exam anxious Results - Laboratory Findings CBC and BMP: 08/10/18 04:57 08/10/18 04:57 ABG ABG pH 7.42 pH Units (7.32-7.45) 08/10/18 04:20 ABG pCO2 48 mmHg (35-45) H 08/10/18 04:20 ABG pO2 75 mmHg (85-104) L 08/10/18 04:20 ABG O2 Saturation 95 % (95-98) 08/10/18 04:20 PT/INR, D-dimer PT 10.0 Seconds (9.4-12.1) 07/30/18 21:02 Abnormal lab findings: Abnormal lab results WBC 12.2 K/mcL (4.3-11.1) H 08/10/18 04:57 Immature Gran % 4.8 % (0-4) H 08/10/18 04:57 Neutrophils # 10.4 K/mcL (1.6-8.9) H 08/10/18 04:57 Lymphocytes # 0.3 K/mcL (0.6-4.6) L 08/10/18 04:57 ABG pCO2 48 mmHg (35-45) H 08/10/18 04:20 ABG pO2 75 mmHg (85-104) L 08/10/18 04:20 ABG HCO3 31 mEq/L (21-27) H 08/10/18 04:20 ABG Total CO2 33 mEq/L (20-26) H 08/10/18 04:20 ABG Base Excess 6 mEq/L (-2 to 3) H 08/10/18 04:20 Chloride 96 mEq/L (98-107) L 08/10/18 04:57 BUN 43 mg/dL (8-23) H 08/10/18 04:57 Creatinine 3.56 mg/dL (0.60-1.20) H 08/10/18 04:57 Est GFR ( Amer) 15 (> 60) L 08/10/18 04:57 Est GFR (Non-Af Amer) 12 (> 60) L 08/10/18 04:57 POC Glucose 120 mg/dL (70-99) H 08/09/18 10:59 Calcium 11.2 mg/dL (8.6-10.3) H 08/10/18 04:57 Phosphorus 5.8 mg/dL (2.7-4.5) H 08/10/18 04:57 Troponin I 0.97 ng/mL (< 0.04) H* 08/04/18 14:04 Serum Total Protein 5.7 g/dL (6.4-8.9) L 08/10/18 04:57 Albumin 3.4 g/dL (3.5-5.7) L 08/10/18 04:57 Globulin 2.3 g/dL (2.4-3.5) L 08/10/18 04:57 PTH Intact 265.4 pg/ml (10.0-65.0) H 08/08/18 14:23 Fluid Appearance Cloudy (Clear) A 07/31/18 11:00 Nasal Screen MRSA (PCR) Positive (Negative) A 07/31/18 12:10 Staphylococcus sp PCR DETECTED (Not Detect) A 08/01/18 11:45 Staph aureus (PCR) DETECTED (Not Detect) A 08/01/18 11:45 mecA-Methicil Res Gene DETECTED (Not Detect) A 08/01/18 11:45 - Clinical Findings Intake & Output: Intake & Output 08/09/18 08/10/18 08/10/18 23:59 07:59 15:59 Intake Total 18.7 / 18.7 81.3 / 81.3 Balance 18.7 / 18.7 81.3 / 81.3 Consult Discharge Plan - Plan Referrals: Vladimir Chaidez MD [Primary Care Provider] -
[2018-08-10] MEDS: *HR* Metoprolol 5 MG/5 ML VIAL IVP SCH (17:55)
--- NOTE | 2018-08-10 21:01 | Electrocardiograph Report ---
[place] [address] Test Date: 2018-08-10 Pat Name: Monisha Carmona Department: [id number] Room: 2A Gender: F Compounding Assistant: : [id number] Requested By: Raffaele Matson Order Number: [id number] Reading MD: Ellie Garcia Measurements Intervals Waterfall Rate: 112 P: MD: 0 QRS: -34 QRSD: 90 T: 269 QT: 313 QTc: 379 Interpretive Statements ATRIAL FLUTTER/TACHYCARDIA WITH RAPID VENTRICULAR RESPONSE LEFT AXIS DEVIATION Electronically Signed On 08-10-2018 21:00:06 EDT by Ellie Garcia
[2018-08-11] MEDS: *HR* Metoprolol 5 MG/5 ML VIAL IVP SCH ×3 (01:17→10:18)
[2018-08-11] MEDS: Piperacillin/Tazobactam 3.375 GM in 0.9 % Sodium Chloride Mini Bag 100 ML IVPB SCH ×2 (01:18→12:23)
[2018-08-11] MEDS: Ipratropium/Albuterol Neb 3 ML IH SCH ×3 (03:30→16:27)
[2018-08-11] MEDS: Acetylcysteine 10% 2 ML INHSOL IH SCH ×3 (03:30→16:27)
[2018-08-11] MEDS ORDERED: 0.9 % Sodium Chloride 1,000 ML ONE (04:27)
[2018-08-11] MEDS ORDERED: Artificial Tears SOLN 15 ML BOTTLE BOTH EYES PRN ×2 (04:29→16:55)
--- NOTE | 2018-08-11 04:48 | Event Note ---
Date of Encounter: 08/11/18 Time of Encounter: 03:39 Called to patient bedside emergently by nursing staff and respiratory therapy for concerns of respiratory failure. Patient has been on BiPAP since yesterday when she was extubated. Despite BiPAP at 100% FiO2, her oxygen saturations have been dropping to less than 80%. I came to the bedside and assessed patient. She had significant work of breathing, profound hypoxemia, and, despite CPAP treatment and deep nasal suctioning per my request, her oxygen saturations did not improve. She also then developed significant nosebleed. I ordered stat chest x-ray which revealed patient to have atelectasis of the left upper lobe and increasing collapse of the right base. At that point, we decided to proceed with intubation given her history of recurrent mucus plugging, worsening hypoxemic respiratory failure, and need for therapeutic bronchoscopy. Patient code status was reviewed before intubation. She is DNR arrest, but per nursing report, patient does request intubation. We therefore intubated at the bedside per respiratory therapy under my direct supervision. She was premedicated with etomidate 10 mg IV and Versed 5 mg IV. The intubation was successful on first attempt. Bilateral breath sounds were auscultated by me. Initially, she appeared to be right mainstem intubated. We pulled back the ET tube 2 cm and then bilateral breath sounds were auscultated. Chest x-ray was again obtained confirming ET tube placement with tube roughly 2 cm above the roxy. She was then moved to the ICU. Exam preintubation: Increased work of breathing with profound hypoxemia despite full supportive measures on BiPAP, oxygen, suctioning, and CPT therapy. HEENT: Mucosa, BiPAP mask in place, nosebleed with NT suctioning. Chest exam: Coarse rhonchi throughout right lung with diminished breath sounds throughout left lung. Heart rate low 90s. Abdomen: Soft, nontender, positive bowel sounds. Extremity: Palpable pulses, trace edema Exam post admission: HEENT: ET tube and OG tube and oropharynx and secured. Chest exam: Bilateral breath sounds auscultated with coarse rhonchi and faint crackles. Impression/plan: 1. Acute hypoxemic Respiratory failure: After failed attempt with conservative measures including BiPAP, oxygen support, and NT suctioning, and CPT therapy, we proceeded with intubation at bedside. Airway was secured by respiratory therapy. We then moved patient to ICU for ongoing ventilatory management and ICU management. Consult ict project manager for therapeutic bronchoscopy and ongoing ICU care. Given her recurrent intubations and mucus plugging, consideration must be made for tracheostomy versus palliative care only. Reportedly, patient and family have had these conversations in the past and patient has refused tracheostomy. 2. Pneumonia: Continue antibiotics as currently prescribed. Of note, blood cultures positive for MRSA. However, sputum cultures remain negative. 3. End stage renal disease: Dialysis per nephrology team. Total 48 minutes critical care time spent thus far assessing, treating, stabilizing, and transferring patient to intensive care unit.
[2018-08-11] MEDS: *HR* Heparin 5,000 UNIT/ML VIAL SQ SCH (05:19)
[2018-08-11 05:44] LABS: ABG Base Excess 2 mEq/L (-2 to 3); ABG HCO3 27 mEq/L (21-27); ABG Oxygen Saturation 88 % (95-98); ABG PCO2 42 mmHg (35-45); ABG PH 7.41 pH Units (7.32-7.45); ABG PO2 55 mmHg (85-104); ABG TCO2 28 mEq/L (20-26); Blood Gas Modality PRVC; Blood Gas PEEP 5 cm H2O; Blood Gas Respiration Rate 20; Blood Gas VT 400 cc
[2018-08-11 05:57] LABS: Basophils # 0.1 K/mcL (0.0-0.2); Basophils % 0.7 %; Hematocrit 37.4 % (35.3-44.9); Hemoglobin 11.8 g/dL (11.5-15.4); Immature Granulocytes % 4.3 % (0-4); Lymphocytes # 0.6 K/mcL (0.6-4.6); Lymphocytes % 5.9 %; Mean Corpuscular HGB Conc 31.6 g/dL (31.6-35.5); Mean Corpuscular Hemoglobin 31.1 pg (28.0-33.3); Mean Corpuscular Volume 98.4 fL (83.0-100.0); Mean Platelet Volume 10.9 fL (9.4-12.4); Monocytes # 0.4 K/mcL (0.0-1.3); Monocytes % 4.1 %; Platelet Count 130 K/mcL (140-400); Red Cell Distribution Width 14.4 % (11.5-14.5)
[2018-08-11 06:16] LABS: Potassium 4.7 mEq/L (3.5-5.1)
[2018-08-11] MEDS ORDERED: *HR* Etomidate 20 MG/10 ML AMPUL IVP ONE (07:54)
[2018-08-11] MEDS: predniSONE 20 MG TABLET PO SCH (07:54)
[2018-08-11] MEDS: Artificial Tears SOLN 15 ML BOTTLE BOTH EYES SCH ×5 (07:54→22:53)
[2018-08-11] MEDS ORDERED: *HR* Midazolam HCl 5 MG/5 ML VIAL IVP ONE (07:54)
[2018-08-11] MEDS ORDERED: FentaNYL (PF) 1,000 MCG in 0.9 % Sodium Chloride 80 ML IVC SCH (08:00)
--- NOTE | 2018-08-11 08:07 | Pulmonology Progress Note ---
Date of Encounter: 08/11/18 Time of Encounter: 08:06 Subjective Principal diagnosis: ESRD Interval history: Monisha was transferred to the floor 2 days ago unfortunately she had worsening respiratory distress over the course of yesterday despite the use of BiPAP which led to emergent endotracheal intubation. There is a high concern for mucus plugging which precipitated this event. She is currently hemodynamically stable on the ventilator she is sedated and appears comfortable. Objective PUL Vital signs: Last Vital Signs Temp 99.2 F 08/11/18 04:45 Pulse 86 08/11/18 05:59 Resp 20 08/11/18 07:49 BP 138/79 08/11/18 05:59 Pulse Ox 95 08/11/18 07:49 General appearance: no acute distress, other (sedated on vents response to sternal rub but is not able to follow commands) Eyes: nonicteric ENT: oropharynx moist Effort: normal Auscultation: bilateral: diminished breath sounds, rhonchi Cardiovascular: irregular rhythm Gastrointestinal: normoactive bowel sounds, soft, non-tender Integumentary: other (Scattered areas of ecchymosis without acute rash or evidence of ecchymotic change/purpura) Extremities: no edema, no clubbing, pink and warm Musculoskeletal: no deformities pupils equal and round, unable to assess due to mental status other (Appears comfortable) Ventilator Settings Ventilator Settings: Ventilator Settings, Last 8 Hours Ventilator Tidal Volume 400 Setting Ventilator Tidal Volume 400 Setting Ventilator Tidal Volume 400 Setting Ventilator Respiratory Rate 20 Setting Ventilator Respiratory Rate 20 Setting Ventilator Respiratory Rate 20 Setting Actual Respiratory Rate 21 Actual Respiratory Rate 26 Positive End Expiratory 5 Pressure Positive End Expiratory 5 Pressure Positive End Expiratory 5 Pressure Peak Inspiratory Airway 29 Pressure Peak Inspiratory Airway 32 Pressure Results - Laboratory Findings CBC and BMP: 08/11/18 05:46 08/11/18 05:46 ABG ABG pH 7.41 pH Units (7.32-7.45) 08/11/18 05:40 ABG pCO2 42 mmHg (35-45) 08/11/18 05:40 ABG pO2 55 mmHg (85-104) L 08/11/18 05:40 ABG O2 Saturation 88 % (95-98) L 08/11/18 05:40 PT/INR, D-dimer PT 10.0 Seconds (9.4-12.1) 07/30/18 21:02 Abnormal lab findings: Abnormal lab results RBC 3.80 M/mcL (3.82-4.97) L 08/11/18 05:46 Plt Count 130 K/mcL (140-400) L 08/11/18 05:46 Immature Gran % 4.3 % (0-4) H 08/11/18 05:46 ABG pO2 55 mmHg (85-104) L 08/11/18 05:40 ABG Total CO2 28 mEq/L (20-26) H 08/11/18 05:40 ABG O2 Saturation 88 % (95-98) L 08/11/18 05:40 BUN 61 mg/dL (8-23) H 08/11/18 05:46 Creatinine 4.97 mg/dL (0.60-1.20) H 08/11/18 05:46 Est GFR ( Amer) 10 (> 60) L 08/11/18 05:46 Est GFR (Non-Af Amer) 8 (> 60) L 08/11/18 05:46 Glucose 65 mg/dL (70-105) L 08/11/18 05:46 POC Glucose 120 mg/dL (70-99) H 08/09/18 10:59 Calculated Osmolality 305 (280-300) H 08/11/18 05:46 Phosphorus 5.8 mg/dL (2.7-4.5) H 08/10/18 04:57 Troponin I 0.97 ng/mL (< 0.04) H* 08/04/18 14:04 Serum Total Protein 5.7 g/dL (6.4-8.9) L 08/10/18 04:57 Albumin 3.4 g/dL (3.5-5.7) L 08/10/18 04:57 Globulin 2.3 g/dL (2.4-3.5) L 08/10/18 04:57 PTH Intact 265.4 pg/ml (10.0-65.0) H 08/08/18 14:23 Fluid Appearance Cloudy (Clear) A 07/31/18 11:00 Nasal Screen MRSA (PCR) Positive (Negative) A 07/31/18 12:10 Staphylococcus sp PCR DETECTED (Not Detect) A 08/01/18 11:45 Staph aureus (PCR) DETECTED (Not Detect) A 08/01/18 11:45 mecA-Methicil Res Gene DETECTED (Not Detect) A 08/01/18 11:45 - Diagnostic Findings Chest x-ray: report reviewed, image reviewed - Clinical Findings Intake & Output: Intake & Output 08/10/18 08/11/18 08/11/18 23:59 07:59 15:59 Intake Total 100 / 100 170 / 170 Output Total 250 / 250 Balance 100 / 100 -80 / -80 Consult Discharge Plan - Plan Referrals: Vladimir Chaidez MD [Primary Care Provider] - - Attending Attestation Impression: * Acute on chronic hypoxic hypercapnic respiratory failure * COPD with acute exacerbation * 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 The procedure , risks, benefits, complications, and expected outco mes have been reviewed. Benefits of diagnosis, as well as risks to include bleeding, infection, pneumothorax which may require surgical intervention, and in a small population. The patient is aware that sometimes test is nondiagnostic. Discussed with patient's (Benny) and agrees to proceed. -Continue bronchodilators and aggressive bronchopulmonary toileting continue IV steroids Antibiotics per ID recommendations -Heart rate control with beta azeem -Continue subcutaneous heparin -Continue IV PPI -Dialysis scheduled per nephrology recommendations continue to monitor electrolytes replaced per protocol -Palliative care consultation very poor prognosis patient will need tracheostomy or consideration of hospice given recurrent episodes of respiratory failure s/t mucous plugging
--- NOTE | 2018-08-11 08:52 | Nephrology Progress Note ---
Date of Encounter: 08/11/18 Time of Encounter: 09:15 - Assessment and Plan (1) ESRD on dialysis Current Visit: Yes Status: Chronic Current regimen is MWF with [facility] with last HD on Tuesday and has orders in place for HD today. Next HD would be planned for Tuesday. Avoid nephrotoxins and renal dose. Strict I/O. (2) HTN (hypertension) Current Visit: No Status: Chronic She is actually relatively hypotensive. Recommend antihypertensive Rx, if able. Qualifiers: Hypertension type: essential hypertension Qualified Code(s): I10 - Essential (primary) hypertension (3) Anemia in chronic kidney disease (CKD) Current Visit: No Status: Chronic Goal Hgb is 10-11: will monitor. Qualifiers: Chronic kidney disease stage: on chronic dialysis Qualified Code(s): N18.6 - End stage renal disease; D63.1 - Anemia in chronic kidney disease; D63.1 - Anemia in chronic kidney disease; Z99.2 - Dependence on renal dialysis; Z99.2 - Dependence on renal dialysis; Z99.2 - Dependence on renal dialysis; Z99.2 - Dependence on renal dialysis (4) Acute and chronic respiratory failure Current Visit: No Status: Acute She remains intubated and has a hx of recurrent respiratory failure. This makes her very high risk and she has a relatively poor prognosis. Qualifiers: Respiratory failure complication: hypoxia Qualified Code(s): J96.21 - Acute and chronic respiratory failure with hypoxia (5) Hyperkalemia Current Visit: Yes Status: Chronic Acute on chronic and recurrent: I recommend a Low K+ (i.e. Renal) Diet when ever her diet is resumed. (6) Hyperphosphatemia Current Visit: No Status: Chronic Subjective Principal diagnosis: ESRD Interval history: Pt was s/e in the ICU: she was not able communicate d/t Intubation, thus limiting this subjective section. Objective - Vital Signs Vital signs: Vital Signs Temp Pulse Resp BP Pulse Ox 08/11/18 07:49 20 95 08/11/18 05:59 86 20 138/79 92 08/11/18 05:00 84 29 156/87 92 08/11/18 04:56 25 158/103 91 08/11/18 04:50 90 78 08/11/18 04:45 99.2 F 82 25 158/103 93 08/11/18 04:30 99.2 F 84 20 156/87 90 08/11/18 03:55 32 80 08/10/18 22:56 98.6 F 105 20 166/90 98 08/10/18 21:30 20 97 08/10/18 19:16 98.9 F 107 18 163/82 97 08/10/18 16:40 98 F 82 16 141/71 94 08/10/18 16:21 24 96 08/10/18 12:21 190/90 08/10/18 11:18 97.9 F 125 20 184/108 94 08/10/18 10:49 16 98 Intake and Output 08/10/18 08/11/18 08/11/18 23:59 07:59 15:59 Intake Total 100 / 100 170 / 170 Output Total 250 / 250 0 / 0 Balance 100 / 100 -80 / -80 0 / 0 Intake: IV Fluids 100 / 100 170 / 170 Diprivan 1,000 mg In 100 ml @ 5 70 / 70 MCG/KG/MIN 1.926 mls/hr IVC . Q24H [facility] Rx#:[id number] Zosyn 3.375 GM In 0.9 % Sodium 100 / 100 100 / 100 Chloride (Mini-Bag +) 100 ML @ 25 mls/hr IVPB Q12H [facility] Rx#: [id number] Output: Catheter 250 / 250 0 / 0 - General Appearance General appearance: Present: appears started age, chronically ill, sedated on ventilator, intubated, fatigue, frail EENT: Present: ATNC, mucous membranes moist Neck: Present: supple Respiratory: Present: course breath sounds Cardiology: Present: no edema, normal S1, normal S2 Gastrointestinal: Present: normoactive bowel sounds, no guarding Integumentary: Present: ecchymotic Neurologic: Present: obtunded Musculoskeletal: Present: no cyanosis - Lab 08/11/18 05:46 08/11/18 05:46 Most recent lab results ABG pH 7.41 pH Units (7.32-7.45) 08/11/18 05:40 ABG pCO2 42 mmHg (35-45) 08/11/18 05:40 ABG pO2 55 mmHg (85-104) L 08/11/18 05:40 ABG HCO3 27 mEq/L (21-27) 08/11/18 05:40 ABG O2 Saturation 88 % (95-98) L 08/11/18 05:40 Calcium 10.0 mg/dL (8.6-10.3) 08/11/18 05:46 Phosphorus 5.8 mg/dL (2.7-4.5) H 08/10/18 04:57 Magnesium 2.2 mg/dL (1.6-2.6) 08/10/18 04:57 Consult Discharge Plan - Plan Referrals: Vladimir Chaidez MD [Primary Care Provider] -
[2018-08-11] MEDS ORDERED: Chlorhexidine Rinse 15 ML MOUTHWASH MM SCH (09:00)
--- NOTE | 2018-08-11 09:19 | Infectious Disease Progress No ---
Date of Encounter: 08/11/18 Time of Encounter: 09:17 - Assessment and Plan (1) Sepsis Current Visit: Yes Status: Resolved The patient had two sepsis criteria on admission. Likely secondary to MRSA bacteremia and pneumonia. Improved. WBC normalized, initially, but back up today. Tachycardia recurred overnight. Afebrile. Peripheral blood cultures drawn 07/30/18 are positive 2/2 sets for MRSA. Repeat blood cultures drawn 08/01/18 are positive 1/2 sets. Repeat blood cultures drawn 08/02/18 are negative x 2 sets. Qualifiers: Sepsis type: methicillin resistant Staphylococcus aureus Qualified Code(s): A41.02 - Sepsis due to Methicillin resistant Staphylococcus aureus (2) Bacteremia Current Visit: Yes Status: Acute Causative organism: MRSA. Source: Unclear, but possibly PNA although her BAL cultures are negative vs. AV fistula although no clinical evidence of cellulitis. Peripheral blood cultures drawn 07/30/18 are positive 2/2 sets for MRSA. Repeat blood cultures drawn 08/01/18 are positive 1/2 sets. Repeat blood cultures drawn 08/02/18 are negative x 2 sets. Complicated due to the lack of identified source. No hardware/pacemaker or evidence of metastatic infection. 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 No endocarditis stigmata noted on exam. TTE was suboptimal due to poor windows, but negative for vegetations. She will likely need a [place] prior to discharge if able to be done given her compromised respiratory status. Now that she is re-intubated, may be able to do before extubation. Check rhuematoid factor.--> <10. Continue Vancomycin IV. Pharmacy to dose. Goal trough ~15. Duration of treatment depends on the clinical picture. If unable to perform [place], will plan to treat for 4 weeks with IV antibiotics. Monitor labs for drug toxicity and dose-adjust antibiotics. (3) HCAP (healthcare-associated pneumonia) Current Visit: No Status: Acute Location: LUP, RML, RLL per bronchoscopy. Causative organism: Unclear. The patient has had multiple bronchoscopies in the past with previous cultures positive for Aspergillus fumigatus (05/03/18), Stenotrophomonas maltophilia (03/28/18), MRSA (02/17/18), and Serratia marcescens (11/25/17). CXR and CT chest findings noted and reviewed. Status post bronchoscopy 07/31/18 that showed mucupurulent secretions and mucous plugging. BAL cultures are no growth. Pathology/cytology pending. RIP negative. Strep pneumo and Legionella UATs were not collected since the patient is anuric secondary to ESRD. Repeat CXR 08/03/18 showed mild hazy bibasilar opacities consistent with pleural effusion and partial atelectasis. Clinically, respiratory status declined overnight. Recommend pulmonology to re-evaluate. Repeat CXR showed worsening LAST and RLL atelectasis. Concern for mucous plugging. Re-intubated 08/11/18. Continue Vancomycin IV. Pharmacy to dose. Goal trough ~15. Continue Levaquin 500mg IV Q48H. (day 2) Continue Zosyn 3.375 grams IV Q12H. (day 2) Duration of treatment depends on the clinical picture, but will require a prolonged course of IV Vanc due to bacteremia. Monitor labs and for drug toxicity and dose-adjust antibiotics. (4) Acute exacerbation of chronic obstructive airways disease Current Visit: No Status: Acute Likely contributing to the patient's acute respiratory failure. Supportive care per the primary and pulmonology teams. (5) Acute and chronic respiratory failure with hypoxia Current Visit: Yes Status: Acute Likely multifactorial: pneumonia + COPD exacerbation + fluid volume overload. Intubated 07/30/18. Extubated 07/31/18. Re-intubated 08/06/18. Extubated 08/08/18. Re-intubated 08/11/18. Palliative care consulted to assist with goals of care. Further management per the pulmonary team. (6) Elevated troponin Current Visit: Yes Status: Acute Etiology unclear. Cadiology consulted. Further workup and management per the primary team. (7) Pulmonary edema Current Visit: No Status: Acute Qualifiers: Chronicity: acute Qualified Code(s): J81.0 - Acute pulmonary edema (8) COPD (chronic obstructive pulmonary disease) Current Visit: Yes Status: Chronic Qualifiers: COPD type: COPD with acute exacerbation Qualified Code(s): J44.1 - Chronic obstructive pulmonary disease with (acute) exacerbation (9) HTN (hypertension) Current Visit: No Status: Chronic Qualifiers: Hypertension type: essential hypertension Qualified Code(s): I10 - Essential (primary) hypertension (10) ESRD on dialysis Current Visit: Yes Status: Chronic Nephrology consulted and following. 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 - Subjective Interval history: Patient seen and examined with nursing at bedside. Overnight events noted. Patient required BIPAP all day yesterday and had acute decompensation and requir e re-intubation. She is currently intubated and sedated. Per nursing, planning for bronch later today. Infect Dis PN-Objective Data - Labs CBC & Chem 7: 08/11/18 05:46 08/11/18 05:46 Labs: Laboratory Results - last 24 hr 08/11/18 08/11/18 08/11/18 02:53 05:40 05:46 WBC 9.5 RBC 3.80 L Hgb 11.8 Hct 37.4 MCV 98.4 MCH 31.1 MCHC 31.6 RDW 14.4 Plt Count 130 L MPV 10.9 Immature Gran % 4.3 H Seg Neutrophils % 85.0 Lymphocytes % 5.9 Monocytes % 4.1 Eosinophils % 0.0 Basophils % 0.7 Neutrophils # 8.0 Lymphocytes # 0.6 Monocytes # 0.4 Eosinophils # 0.0 Basophils # 0.1 Sample Site R Radial ABG pH 7.41 ABG pCO2 42 ABG pO2 55 L ABG HCO3 27 ABG Total CO2 28 H ABG O2 Saturation 88 L ABG Base Excess 2 Ge Test N/A Respiration Rate 20 O2 Delivery Device Adult Vent Blood Gas Modality PRVC Inspired O2 100.0 Tidal Volume 400 PEEP 5 Sodium Potassium Chloride Carbon Dioxide BUN Creatinine Est GFR ( Amer) Est GFR (Non-Af Amer) BUN/Creatinine Ratio Glucose Calculated Osmolality Calcium Random Vancomycin 17 08/11/18 05:46 WBC RBC Hgb Hct MCV MCH MCHC RDW Plt Count MPV Immature Gran % Seg Neutrophils % Lymphocytes % Monocytes % Eosinophils % Basophils % Neutrophils # Lymphocytes # Monocytes # Eosinophils # Basophils # Sample Site ABG pH ABG pCO2 ABG pO2 ABG HCO3 ABG Total CO2 ABG O2 Saturation ABG Base Excess Ge Test Respiration Rate O2 Delivery Device Blood Gas Modality Inspired O2 Tidal Volume PEEP Sodium 140 Potassium 4.7 Chloride 100 Carbon Dioxide 25 BUN 61 H Creatinine 4.97 H Est GFR ( Amer) 10 L Est GFR (Non-Af Amer) 8 L BUN/Creatinine Ratio 12 Glucose 65 L Calculated Osmolality 305 H Calcium 10.0 Random Vancomycin Cultures: Cultures 07/31/18 10:57 Legionella Culture - Final Left Upper Lobe Lung Legionella Culture - Preliminary 07/31/18 11:00 Legionella Culture - Final Right Middle Lobe Lung Legionella Culture - Preliminary 08/02/18 14:24 Blood Culture - Final Peripheral Venipuncture No growth. Final report. 08/02/18 14:23 Blood Culture - Final Peripheral Venipuncture No growth. Final report. 08/01/18 11:45 Blood Culture - Final Peripheral Venipuncture No growth. Final report. 07/30/18 21:02 Blood Culture - Final Peripheral Venipuncture Methicillin Resistant S.aureus 08/01/18 11:45 Blood Culture - Final Peripheral Venipuncture Methicillin Resistant S.aureus 07/31/18 05:30 Sputum Culture - Final Sputum 07/31/18 10:57 Respiratory Culture - Final Left Upper Lobe Lung 07/31/18 11:00 Respiratory Culture - Final Right Middle Lobe Lung 07/30/18 21:02 Blood Culture - Final Peripheral Venipuncture Methicillin Resistant S.aureus 07/31/18 11:00 Acid Fast Stain - Final Right Middle Lobe Lung 07/31/18 10:57 Acid Fast Stain - Final Left Upper Lobe Lung Serology 08/01/18 07/31/18 07/31/18 Range/Units 11:45 12:10 12:10 Fluid Source Fluid Volume mL Fluid Appearance (Clear) Fluid RBC Fld Tot Nucleated Cell Fluid Seg Neutrophil % % Fld Band Neutrophil % Fluid Lymphocytes % Fluid Monocytes % Fluid Eosinophils % Fluid Basophils % Fluid Other Cells % % Nasal Screen MRSA (PCR) Positive A (Negative) A. baumannii (PCR) Not Detected (Not Detect) Chlamy pneumoniae PCR Not Detected (Not Detect) Adenovirus (PCR) Not Detected (Not Detect) B. pertussis DNA (PCR) Not Detected (Not Detect) B.parapertussis DNA PCR Not Detected (Not Detect) Priyanka albicans (PCR) Not Detected (Not Detect) C. glabrata (PCR) Not Detected (Not Detect) C. krusei (PCR) Not Detected (Not Detect) C. parapsilosis (PCR) Not Detected (Not Detect) C. tropicalis (PCR) Not Detected (Not Detect) Coronavirus OC43 (PCR) Not Detected (Not Detect) Coronavirus HKU1 (PCR) Not Detected (Not Detect) Coronavirus 229E (PCR) Not Detected (Not Detect) Coronavirus NL63 (PCR) Not Detected (Not Detect) Enterobacteriac sp PCR Not Detected (Not Detect) E. cloacae complex PCR Not Detected (Not Detect) Enterococcus sp PCR Not Detected (Not Detect) E. coli (PCR) Not Detected (Not Detect) H. influenzae (PCR) Not Detected (Not Detect) Hep Bs Antigen (Nonreactive) Hep Bs Antibody mIU/mL Human Metapneumovir PCR Not Detected (Not Detect) Influenza A (H1) PCR Not Detected (Not Detect) Influ A (H1N1/09) PCR Not Detected (Not Detect) Influenza A (H3) PCR Not Detected (Not Detect) Influenza A Untype (PCR) Not Detected (Not Detect) Influenza Type B (PCR) Not Detected (Not Detect) Klebsiella oxytoca PCR Not Detected (Not Detect) Klebsiella pneumoniae Not Detected (Not Detect) List. monocytogenes PCR Not Detected (Not Detect) Mycoplasma pneumon IgG (<=0.09) U/L Mycoplasma pneumon IgM (<=0.76) U/L M.pneumoniae DNA (PCR) Not Detected (Not Detect) N. meningitidis (PCR) Not Detected (Not Detect) Parainfluenza 1 (PCR) Not Detected (Not Detect) Parainfluenza 2 (PCR) Not Detected (Not Detect) Parainfluenza 3 (PCR) Not Detected (Not Detect) Parainfluenza 4 (PCR) Not Detected (Not Detect) Proteus species (PCR) Not Detected (Not Detect) RSV (PCR) Not Detected (Not Detect) Entero/Rhino (PCR) Not Detected (Not Detect) Serratia marcescens PCR Not Detected (Not Detect) Staphylococcus sp PCR DETECTED A (Not Detect) Staph aureus (PCR) DETECTED A (Not Detect) mecA-Methicil Res Gene DETECTED A (Not Detect) Streptococcus sp PCR Not Detected (Not Detect) Group A Strep DNA Not Detected (Not Detect) Group B Strep (PCR) Not Detected (Not Detect) Strep pneumoniae (PCR) Not Detected (Not Detect) P. aeruginosa (PCR) Not Detected (Not Detect) Sydney/B-Vanco Res Genes N/A (Not Detect) KPC (blaKPC) Detect PCR N/A (Not Detect) 07/31/18 07/31/18 07/31/18 Range/Units 11:00 10:57 08:37 Fluid Source right middle lobe keegan left upper lobe lung Fluid Volume 17 16 mL Fluid Appearance Cloudy A Cloudy A (Clear) Fluid RBC TNP TNP Fld Tot Nucleated Cell TNP TNP Fluid Seg Neutrophil % 84.6 92.3 % Fld Band Neutrophil % TNP TNP Fluid Lymphocytes % TNP TNP Fluid Monocytes % TNP TNP Fluid Eosinophils % TNP TNP Fluid Basophils % TNP TNP Fluid Other Cells % 15.4 7.7 % Nasal Screen MRSA (PCR) (Negative) A. baumannii (PCR) (Not Detect) Chlamy pneumoniae PCR (Not Detect) Adenovirus (PCR) (Not Detect) B. pertussis DNA (PCR) (Not Detect) B.parapertussis DNA PCR (Not Detect) Priyanka albicans (PCR) (Not Detect) C. glabrata (PCR) (Not Detect) C. krusei (PCR) (Not Detect) C. parapsilosis (PCR) (Not Detect) C. tropicalis (PCR) (Not Detect) Coronavirus OC43 (PCR) (Not Detect) Coronavirus HKU1 (PCR) (Not Detect) Coronavirus 229E (PCR) (Not Detect) Coronavirus NL63 (PCR) (Not Detect) Enterobacteriac sp PCR (Not Detect) E. cloacae complex PCR (Not Detect) Enterococcus sp PCR (Not Detect) E. coli (PCR) (Not Detect) H. influenzae (PCR) (Not Detect) Hep Bs Antigen (Nonreactive) Hep Bs Antibody mIU/mL Human Metapneumovir PCR (Not Detect) Influenza A (H1) PCR (Not Detect) Influ A (H1N1/09) PCR (Not Detect) Influenza A (H3) PCR (Not Detect) Influenza A Untype (PCR) (Not Detect) Influenza Type B (PCR) (Not Detect) Klebsiella oxytoca PCR (Not Detect) Klebsiella pneumoniae (Not Detect) List. monocytogenes PCR (Not Detect) Mycoplasma pneumon IgG 0.04 (<=0.09) U/L Mycoplasma pneumon IgM 0.05 (<=0.76) U/L M.pneumoniae DNA (PCR) (Not Detect) N. meningitidis (PCR) (Not Detect) Parainfluenza 1 (PCR) (Not Detect) Parainfluenza 2 (PCR) (Not Detect) Parainfluenza 3 (PCR) (Not Detect) Parainfluenza 4 (PCR) (Not Detect) Proteus species (PCR) (Not Detect) RSV (PCR) (Not Detect) Entero/Rhino (PCR) (Not Detect) Serratia marcescens PCR (Not Detect) Staphylococcus sp PCR (Not Detect) Staph aureus (PCR) (Not Detect) mecA-Methicil Res Gene (Not Detect) Streptococcus sp PCR (Not Detect) Group A Strep DNA (Not Detect) Group B Strep (PCR) (Not Detect) Strep pneumoniae (PCR) (Not Detect) P. aeruginosa (PCR) (Not Detect) Sydney/B-Vanco Res Genes (Not Detect) KPC (blaKPC) Detect PCR (Not Detect) 07/30/18 07/30/18 Range/Units 21:02 17:51 Fluid Source Fluid Volume mL Fluid Appearance (Clear) Fluid RBC Fld Tot Nucleated Cell Fluid Seg Neutrophil % % Fld Band Neutrophil % Fluid Lymphocytes % Fluid Monocytes % Fluid Eosinophils % Fluid Basophils % Fluid Other Cells % % Nasal Screen MRSA (PCR) (Negative) A. baumannii (PCR) Not Detected (Not Detect) Chlamy pneumoniae PCR (Not Detect) Adenovirus (PCR) (Not Detect) B. pertussis DNA (PCR) (Not Detect) B.parapertussis DNA PCR (Not Detect) Priyanka albicans (PCR) Not Detected (Not Detect) C. glabrata (PCR) Not Detected (Not Detect) C. krusei (PCR) Not Detected (Not Detect) C. parapsilosis (PCR) Not Detected (Not Detect) C. tropicalis (PCR) Not Detected (Not Detect) Coronavirus OC43 (PCR) (Not Detect) Coronavirus HKU1 (PCR) (Not Detect) Coronavirus 229E (PCR) (Not Detect) Coronavirus NL63 (PCR) (Not Detect) Enterobacteriac sp PCR Not Detected (Not Detect) E. cloacae complex PCR Not Detected (Not Detect) Enterococcus sp PCR Not Detected (Not Detect) E. coli (PCR) Not Detected (Not Detect) H. influenzae (PCR) Not Detected (Not Detect) Hep Bs Antigen Nonreactive (Nonreactive) Hep Bs Antibody 1.25 mIU/mL Human Metapneumovir PCR (Not Detect) Influenza A (H1) PCR (Not Detect) Influ A (H1N1/09) PCR (Not Detect) Influenza A (H3) PCR (Not Detect) Influenza A Untype (PCR) (Not Detect) Influenza Type B (PCR) (Not Detect) Klebsiella oxytoca PCR Not Detected (Not Detect) Klebsiella pneumoniae Not Detected (Not Detect) List. monocytogenes PCR Not Detected (Not Detect) Mycoplasma pneumon IgG (<=0.09) U/L Mycoplasma pneumon IgM (<=0.76) U/L M.pneumoniae DNA (PCR) (Not Detect) N. meningitidis (PCR) Not Detected (Not Detect) Parainfluenza 1 (PCR) (Not Detect) Parainfluenza 2 (PCR) (Not Detect) Parainfluenza 3 (PCR) (Not Detect) Parainfluenza 4 (PCR) (Not Detect) Proteus species (PCR) Not Detected (Not Detect) RSV (PCR) (Not Detect) Entero/Rhino (PCR) (Not Detect) Serratia marcescens PCR Not Detected (Not Detect) Staphylococcus sp PCR DETECTED A (Not Detect) Staph aureus (PCR) DETECTED A (Not Detect) mecA-Methicil Res Gene DETECTED A (Not Detect) Streptococcus sp PCR Not Detected (Not Detect) Group A Strep DNA Not Detected (Not Detect) Group B Strep (PCR) Not Detected (Not Detect) Strep pneumoniae (PCR) Not Detected (Not Detect) P. aeruginosa (PCR) Not Detected (Not Detect) Sydney/B-Vanco Res Genes Not Detected (Not Detect) KPC (blaKPC) Detect PCR Not Detected (Not Detect) - Impressions Impressions Chest X-Ray 08/10/18 11:54 IMPRESSION: Status post extubation with increasing bibasilar atelectasis and small pleural effusions. D/ / 08/10/2018 12:42:22 Willis Cr MD / darius Interpreting Provider: Willis Cr MD Chest X-Ray 08/11/18 03:36 IMPRESSION: 1. New left upper lobe atelectasis or pneumonia. 2. Increasing collapse in the right base with grossly stable left basilar airspace disease. D/ / Tate Finley MD / Tate Finley MD Interpreting Provider: Tate Finley MD Chest X-Ray 08/11/18 04:16 IMPRESSION: 1. The tip of the endotracheal tube is approximately 3 cm above the roxy. 2. The endotracheal tube is in good position with the tip and side hole in the stomach. 3. Improved aeration of the left upper lobe and right base. D/ / Tate Finley MD / Tate Finley MD Interpreting Provider: Tate Finley MD Exam - Constitutional Vitals: Temp Pulse Resp BP Pulse Ox 99.2 F 86 20 138/79 95 08/11/18 04:45 08/11/18 05:59 08/11/18 07:49 08/11/18 05:59 08/11/18 07:49 General appearance: average body habitus, no acute distress, no febrile - Head Head exam: Present: atraumatic, normal inspection, normocephalic - Eye Eye exam: Present: EOMI, normal appearance, PERRL Pupils: Present: normal accommodation Additional comments: No subconjunctival hemorrhage noted. - ENT ENT exam: Present: mucous membranes moist - Neck Neck exam: Present: normal inspection - Respiratory Respiratory exam: Present: rhonchi (Scattered throughout). Absent: rales, respiratory distress, wheezes - Cardiovascular Cardiovascular exam: Present: irregular rhythm. Absent: tachycardia - GI/Abdominal GI/Abdominal exam: Present: normal bowel sounds, soft. Absent: distended, tenderness Additional comments: Norris catheter noted to be draining clear yellow urine. OG tube to LIWS. - Extremities Exam Extremities exam: Present: normal inspection. Absent: joint swelling, pedal edema, tenderness - Neurological Exam Neurological exam: Present: altered (Sedated.) - Skin Skin exam: Present: dry, intact, normal color, warm Additional comments: No endocarditis stigmata noted. Consult Discharge Plan - Plan Referrals: Vladimir Chaidez MD [Primary Care Provider] - - Attending Attestation I examined this patient and my medical decision-making was reviewed with the Resident Physician. I agree with the documented findings, disposition and treatment plan as described except to the extent set forth below.
[2018-08-11] MEDS ORDERED: 0.9 % Sodium Chloride 250 ML IVC PRN (09:27)
[2018-08-11] MEDS ORDERED: 0.9 % Sodium Chloride 1,000 ML PRIME SCH (09:30)
[2018-08-11] MEDS: Budesonide/Formoterol 160/4.5 1 PUFF INH IH SCH (10:01)
[2018-08-11] MEDS ORDERED: Aminoglycoside Consult 1 EACH MC ONE (10:24)
[2018-08-11 12:21] LABS: Source of Body Fluid LUL BAL; Source of Body Fluid RUL BAL
[2018-08-11] MEDS: Nystatin SUSP 5 ML UD.LIQ PO SCH ×4 (12:24→19:48)
--- NOTE | 2018-08-11 13:19 | Palliative Progress Note ---
Date of Encounter: 08/11/18 Time of Encounter: 11:30 - Assessment and plan (1) COPD (chronic obstructive pulmonary disease) Current Visit: Yes Status: Chronic Assessment and plan: Patient re-intubated upon arrival for assessment. Primary ICU team managing COPD. Qualifiers: COPD type: COPD with acute exacerbation Qualified Code(s): J44.1 - Chronic obstructive pulmonary disease with (acute) exacerbation (2) Benign hypertension with ESRD (end-stage renal disease) Current Visit: No Status: Chronic Assessment and plan: Nephrology consult appreciated; managing HD MWF per Outpatient schedule. (3) Acute exacerbation of chronic obstructive airways disease Current Visit: No Status: Acute (4) Sepsis Current Visit: Yes Status: Resolved Qualifiers: Sepsis type: methicillin resistant Staphylococcus aureus Qualified Code(s): A41.02 - Sepsis due to Methicillin resistant Staphylococcus aureus (5) Goals of care, counseling/discussion Current Visit: Yes Status: Acute Assessment and plan: Called and spoke with patient's Benny. Awaiting other family members to be present to all come to bedside. Plan for updated family meeting at 1330. 1330: Conducted goals of care discussion with patient's , children, and other family members. Discussed overall prognosis and options regarding continued care with family and Dr. Lazo. Family in agreement to palliative extubate and withdraw care at this time. CODE STATUS changed to DNRCC. Patient to be extubated and family's agreement for time. Plan to remain in hospital through weekend and will consider placement home with hospice on tuesday if patient able. Plan to keep patient comfortable at this time. May transfer to under hospitalist care if stable after extubation. May use Propofol and Fentanyl infusion for palliative withdraw of care. Family in agreement to discontinue Dialysis, as lung condition will be of terminal nature prior to discontinuance of dialysis. Palliative care will continue to follow for assistance in symptom management. - Time Spent With Patient Total time spent is greater than 50% in coordination of care (as documented) at patient's floor/unit and/or counseling patient: Greater than 35 minutes - Subjective Interval history: Patient lying in bed with eyes closed upon arrival for assessment. No family present at bedside. Patient reintubated early this morning. Patient now intubated and sedated. HD being performed. Spoke with Primary RN Amada. Patient had to be bronchoscoped again this morning, not lasting 5 days without repeat bronchs. Patient unarousable to tactile stimulation during assessment. - Constitutional Vitals: Abnormal lab results RBC 3.80 M/mcL (3.82-4.97) L 08/11/18 05:46 Plt Count 130 K/mcL (140-400) L 08/11/18 05:46 Immature Gran % 4.3 % (0-4) H 08/11/18 05:46 ABG pO2 55 mmHg (85-104) L 08/11/18 05:40 ABG Total CO2 28 mEq/L (20-26) H 08/11/18 05:40 ABG O2 Saturation 88 % (95-98) L 08/11/18 05:40 BUN 61 mg/dL (8-23) H 08/11/18 05:46 Creatinine 4.97 mg/dL (0.60-1.20) H 08/11/18 05:46 Est GFR ( Amer) 10 (> 60) L 08/11/18 05:46 Est GFR (Non-Af Amer) 8 (> 60) L 08/11/18 05:46 Glucose 65 mg/dL (70-105) L 08/11/18 05:46 POC Glucose 120 mg/dL (70-99) H 08/09/18 10:59 Calculated Osmolality 305 (280-300) H 08/11/18 05:46 Phosphorus 5.8 mg/dL (2.7-4.5) H 08/10/18 04:57 Troponin I 0.97 ng/mL (< 0.04) H* 08/04/18 14:04 Serum Total Protein 5.7 g/dL (6.4-8.9) L 08/10/18 04:57 Albumin 3.4 g/dL (3.5-5.7) L 08/10/18 04:57 Globulin 2.3 g/dL (2.4-3.5) L 08/10/18 04:57 PTH Intact 265.4 pg/ml (10.0-65.0) H 08/08/18 14:23 Fluid Appearance Cloudy (Clear) A 07/31/18 11:00 Nasal Screen MRSA (PCR) Positive (Negative) A 07/31/18 12:10 Staphylococcus sp PCR DETECTED (Not Detect) A 08/01/18 11:45 Staph aureus (PCR) DETECTED (Not Detect) A 08/01/18 11:45 mecA-Methicil Res Gene DETECTED (Not Detect) A 08/01/18 11:45 General appearance: Present: no acute distress - Head Head exam: Present: atraumatic, normal inspection - Eye Eye exam: Present: PERRL. Absent: periorbital swelling, periorbital tenderness Pupils: Present: normal accommodation, PERRL - ENT ENT exam: Present: mucous membranes dry - Neck Neck exam: Present: normal inspection - Respiratory Respiratory exam: Present: CTAB. Absent: accessory muscle use, rhonchi, wheezes - Cardiovascular Cardiovascular exam: Present: +S1, +S2 - GI/Abdominal GI/Abdominal exam: Present: diminished bowel sounds, soft. Absent: tenderness - Rectal Rectal exam: Present: deferred - Extremities Exam Extremities exam: Present: pedal edema - Back Exam Back exam: Present: normal inspection - Neurological Exam Neurological exam: Present: altered - Psychiatric Psychiatric exam: Present: flat affect Palliative Quality Palliative Quality: Screen for Code Status: Yes, Screen for Goals of Care: Yes, Screen for Pain: Yes, If Pain Regimen Started, Initiate Bowel Regimen: NA, Screen for Nausea/Vomitting: Yes Code Status: 07/30/18 20:37 CODE [Resuscitation Status: Active] [RES] Routine Comment: Resuscitation Status: Full Code 08/04/18 15:45 DNR [Resuscitation Status: Active] [RES] Routine Comment: Resuscitation Status: DNR-Comfort Care-Arrest - Labs CBC & Chem 7: 08/11/18 05:46 08/11/18 05:46 Labs: Laboratory Results - last 24 hr 08/11/18 08/11/18 08/11/18 02:53 05:40 05:46 WBC 9.5 RBC 3.80 L Hgb 11.8 Hct 37.4 MCV 98.4 MCH 31.1 MCHC 31.6 RDW 14.4 Plt Count 130 L MPV 10.9 Immature Gran % 4.3 H Seg Neutrophils % 85.0 Lymphocytes % 5.9 Monocytes % 4.1 Eosinophils % 0.0 Basophils % 0.7 Neutrophils # 8.0 Lymphocytes # 0.6 Monocytes # 0.4 Eosinophils # 0.0 Basophils # 0.1 Sample Site R Radial ABG pH 7.41 ABG pCO2 42 ABG pO2 55 L ABG HCO3 27 ABG Total CO2 28 H ABG O2 Saturation 88 L ABG Base Excess 2 Ge Test N/A Respiration Rate 20 O2 Delivery Device Adult Vent Blood Gas Modality PRVC Inspired O2 100.0 Tidal Volume 400 PEEP 5 Sodium Potassium Chloride Carbon Dioxide BUN Creatinine Est GFR ( Amer) Est GFR (Non-Af Amer) BUN/Creatinine Ratio Glucose Calculated Osmolality Calcium Random Vancomycin 17 08/11/18 05:46 WBC RBC Hgb Hct MCV MCH MCHC RDW Plt Count MPV Immature Gran % Seg Neutrophils % Lymphocytes % Monocytes % Eosinophils % Basophils % Neutrophils # Lymphocytes # Monocytes # Eosinophils # Basophils # Sample Site ABG pH ABG pCO2 ABG pO2 ABG HCO3 ABG Total CO2 ABG O2 Saturation ABG Base Excess Ge Test Respiration Rate O2 Delivery Device Blood Gas Modality Inspired O2 Tidal Volume PEEP Sodium 140 Potassium 4.7 Chloride 100 Carbon Dioxide 25 BUN 61 H Creatinine 4.97 H Est GFR ( Amer) 10 L Est GFR (Non-Af Amer) 8 L BUN/Creatinine Ratio 12 Glucose 65 L Calculated Osmolality 305 H Calcium 10.0 Random Vancomycin - Impressions Impressions Chest X-Ray 08/10/18 11:54 IMPRESSION: Status post extubation with increasing bibasilar atelectasis and small pleural effusions. D/ / 08/10/2018 12:42:22 Willis Cr MD / darius Interpreting Provider: Willis Cr MD Chest X-Ray 08/11/18 03:36 IMPRESSION: 1. New left upper lobe atelectasis or pneumonia. 2. Increasing collapse in the right base with grossly stable left basilar airspace disease. D/ / Tate Finley MD / Tate Finley MD Interpreting Provider: Tate Finley MD Chest X-Ray 08/11/18 04:16 IMPRESSION: 1. The tip of the endotracheal tube is approximately 3 cm above the roxy. 2. The endotracheal tube is in good position with the tip and side hole in the stomach. 3. Improved aeration of the left upper lobe and right base. D/ / Tate Finley MD / Tate Finley MD Interpreting Provider: Tate Finley MD Chest X-Ray 08/11/18 11:01 IMPRESSION: Unchanged bibasilar pulmonary opacities with bilateral pleural effusions. Recommend radiographic follow-up to complete resolution. Findings suggestive of underlying pulmonary interstitial edema. No evidence of pneumothorax. D/ / 08/11/2018 11:32:07 Seb Kraus MD / shawanda Interpreting Provider: Seb Kraus MD - ABG Interpretation ABG results: ABG ABG pH 7.41 pH Units (7.32-7.45) 08/11/18 05:40 ABG pCO2 42 mmHg (35-45) 08/11/18 05:40 ABG pO2 55 mmHg (85-104) L 08/11/18 05:40 ABG O2 Saturation 88 % (95-98) L 08/11/18 05:40 PT/INR, D-dimer PT 10.0 Seconds (9.4-12.1) 07/30/18 21:02 Consult Discharge Plan - Plan Referrals: Vladimir Chaidez MD [Primary Care Provider] -
[2018-08-11] MEDS ORDERED: OXYCODONE Oral CONC 10 MG/0.5 ML ORAL.SYG SL PRN ×2 (13:54→16:55)
[2018-08-11] MEDS ORDERED: *HR* LORazepam Oral Conc 2 MG/ML SL PRN (13:54)
[2018-08-11] MEDS ORDERED: Atropine 1% Opth Drops 100 DROP/5 ML BOTTLE SL PRN (13:56)
[2018-08-11] MEDS ORDERED: Scopolamine Patch 1.5 MG PATCH.TD72 TD SCH (14:00)
[2018-08-11] MEDS ORDERED: Atropine Sulfate 1% 40 DROP/2 ML BOTTLE SL PRN (14:15)
[2018-08-11] MEDS ORDERED: Vancomycin 500 MG in 0.9 % Sodium Chloride Mini Bag 100 ML IVPB ONE (16:00)
[2018-08-11 16:22] LABS: Appearance of Body Fluid Hazy (Clear)
[2018-08-11 16:23] LABS: Volume of Body Fluid 15 mL
[2018-08-11 16:40] LABS: Appearance of Body Fluid Hazy (Clear)
[2018-08-11 16:41] LABS: Volume of Body Fluid 9 mL
[2018-08-11] MEDS ORDERED: Nitroglycerin 0.4 MG TAB.SUBL SL PRN (16:55)
[2018-08-11] MEDS: Atropine Sulfate 1% 40 DROP/2 ML BOTTLE SL PRN ×2 (19:08→22:54)
[2018-08-11] MEDS: FentaNYL (PF) 1,000 MCG in 0.9 % Sodium Chloride 80 ML IVC SCH (23:24)
[2018-08-12] MEDS: Artificial Tears SOLN 15 ML BOTTLE BOTH EYES SCH ×5 (04:09→20:57)
[2018-08-12] MEDS: *HR* LORazepam Oral Conc 2 MG/ML SL PRN ×2 (04:14→21:23)
[2018-08-12] MEDS ORDERED: Pantoprazole 40 MG VIAL IVP SCH (07:30)
[2018-08-12] MEDS: Nystatin SUSP 5 ML UD.LIQ PO SCH ×4 (09:07→20:57)
--- NOTE | 2018-08-12 09:29 | Internal Med Progress Note ---
Hospitalist Progress Note - Encounter Date of Encounter: 08/12/18 Time of Encounter: 09:26 - Subjective Interval History: Patient seen and examined this morning. Transferred from ICU after made DNR- comfort care. Patient non-responsive. Appears Comfortable. Could not offer any complains. On sedation and comfort care medications. Family at bedside. - Exam Vitals: Temp Pulse Resp BP Pulse Ox 99.4 F 83 20 103/59 94 08/11/18 13:20 08/11/18 14:00 08/11/18 15:44 08/11/18 15:18 08/11/18 15:44 Exam: General: Appears comfortable. Lying on bed. Respiratory exam: On 3 lpm. Breathing heavily Neurological exam: Unresponsive. On sedation - Assessment and Plan (1) Acute respiratory distress Current Visit: No Status: Acute (2) ESRD on dialysis Current Visit: Yes Status: Chronic (3) COPD (chronic obstructive pulmonary disease) Current Visit: Yes Status: Chronic (4) HTN (hypertension) Current Visit: No Status: Chronic (5) Hyperkalemia Current Visit: Yes Status: Chronic (6) Volume overload Current Visit: Yes Status: Acute - Summary of Assessment and Plan Summary of Assessment and Plan: Patient with Acute on chronic respiratory failure, sepsis, MRSA bacteremia, Afib, - Needing multiple intubation - Transfered from ICU after goals of care discussion with family - Had palliative extubation yesterday - Continue comfort care measures. - Plan to place on home with hospice on tuesday if patient able. - Time Spent with Patient Total time spent is greater than 50% in coordination of care (as documented) at patient's floor/unit and/or counseling patient: Internal Medicine: Result - Labs CBC & Chem 7: 08/11/18 05:46 08/11/18 05:46 - ABG Interpretation ABG results: ABG ABG pH 7.41 pH Units (7.32-7.45) 08/11/18 05:40 ABG pCO2 42 mmHg (35-45) 08/11/18 05:40 ABG pO2 55 mmHg (85-104) L 08/11/18 05:40 ABG O2 Saturation 88 % (95-98) L 08/11/18 05:40 PT/INR, D-dimer PT 10.0 Seconds (9.4-12.1) 07/30/18 21:02 - Impressions Impressions Chest X-Ray 08/11/18 11:01 IMPRESSION: 1. Unchanged bibasilar pulmonary opacities with bilateral pleural effusions. Recommend radiographic follow-up to complete resolution. 2. Findings suggestive of underlying pulmonary interstitial edema. 3. No evidence of pneumothorax. D/ / 08/11/2018 11:32:07 Seb Kraus MD / shawanda Interpreting Provider: Seb Kraus MD Consult Discharge Plan - Plan Referrals: Vladimir Chaidez MD [Primary Care Provider] - (3) COPD (chronic obstructive pulmonary disease) Qualifiers: COPD type: COPD with acute exacerbation Qualified Code(s): J44.1 - Chronic obstructive pulmonary disease with (acute) exacerbation (4) HTN (hypertension) Qualifiers: Hypertension type: essential hypertension Qualified Code(s): I10 - Essential (primary) hypertension (6) Volume overload Qualifiers: Hypervolemia type: unspecified Qualified Code(s): E87.70 - Fluid overload, unspecified
--- NOTE | 2018-08-12 11:33 | Palliative Progress Note ---
Date of Encounter: 08/12/18 Time of Encounter: 09:00 - Assessment and plan (1) Goals of care, counseling/discussion Current Visit: Yes Status: Acute Assessment and plan: Family decided to transition patient to comfort care only. Patient seems stable today. Called , he is agreeable for [facility] admission. Family aware that pt's prognosis is hours to days, the plan is to transfer pt home on Tuesday if she remains stable and can be transitioned off IV drip. Hospice nurse Liseth called and referral made for GIP. (2) Dyspnea Current Visit: Yes Status: Acute Assessment and plan: Patient was started on Fentanyl drip, now at 100mcg/hr and oxucodone 5 mg prn. continue Bowel regimen: dulcolax supp prn (3) Excessive oral secretions Current Visit: Yes Status: Acute Assessment and plan: on scopolamine patch (4) Anxiety Current Visit: Yes Status: Acute Assessment and plan: on Lorazepam 1 mg q4hrs prn. received 1 dose overnight. (5) End stage renal disease on dialysis Current Visit: No Status: Chronic Assessment and plan: Patient did not tolerate HD session yesterday. There will be no more HD per family wishes. (6) Acute on chronic respiratory failure with hypoxia Current Visit: No Status: Resolved Assessment and plan: Pt is s/p palliaive extubation yesterday, on oxygen per nc, and phentanyl drip for dyspnea. (7) Mucus plugging of bronchi Current Visit: No Status: Chronic Assessment and plan: comfort care only - Time Spent With Patient Total time spent is greater than 50% in coordination of care (as documented) at patient's floor/unit and/or counseling patient: Greater than 35 minutes - Subjective Interval history: patient was resting peacefully. Son at the bedside, states she has been comfortable overnight. - Constitutional Vitals: Abnormal lab results RBC 3.80 M/mcL (3.82-4.97) L 08/11/18 05:46 Plt Count 130 K/mcL (140-400) L 08/11/18 05:46 Immature Gran % 4.3 % (0-4) H 08/11/18 05:46 ABG pO2 55 mmHg (85-104) L 08/11/18 05:40 ABG Total CO2 28 mEq/L (20-26) H 08/11/18 05:40 ABG O2 Saturation 88 % (95-98) L 08/11/18 05:40 BUN 61 mg/dL (8-23) H 08/11/18 05:46 Creatinine 4.97 mg/dL (0.60-1.20) H 08/11/18 05:46 Est GFR ( Amer) 10 (> 60) L 08/11/18 05:46 Est GFR (Non-Af Amer) 8 (> 60) L 08/11/18 05:46 Glucose 65 mg/dL (70-105) L 08/11/18 05:46 Calculated Osmolality 305 (280-300) H 08/11/18 05:46 Phosphorus 5.8 mg/dL (2.7-4.5) H 08/10/18 04:57 Troponin I 0.97 ng/mL (< 0.04) H* 08/04/18 14:04 Serum Total Protein 5.7 g/dL (6.4-8.9) L 08/10/18 04:57 Albumin 3.4 g/dL (3.5-5.7) L 08/10/18 04:57 Globulin 2.3 g/dL (2.4-3.5) L 08/10/18 04:57 PTH Intact 265.4 pg/ml (10.0-65.0) H 08/08/18 14:23 Fluid Appearance Hazy (Clear) A 08/11/18 11:30 Nasal Screen MRSA (PCR) Positive (Negative) A 07/31/18 12:10 Staphylococcus sp PCR DETECTED (Not Detect) A 08/01/18 11:45 Staph aureus (PCR) DETECTED (Not Detect) A 08/01/18 11:45 mecA-Methicil Res Gene DETECTED (Not Detect) A 08/01/18 11:45 - Respiratory Respiratory exam: Present: decreased breath sounds, rhonchi - GI/Abdominal GI/Abdominal exam: Present: diminished bowel sounds, soft. Absent: tenderness - Additional comments: العلي in place, draining scan amounts of dark urine - Extremities Exam Extremities exam: Present: normal capillary refill Additional comments: peripheral pulses present - Neurological Exam Additional comments: not responsive to touch or voice. Pupils reactive - Skin Additional comments: Scattered areas of ecchymosis without acute rash or evidence of ecchymotic change/purpura Palliative Quality Palliative Quality: Screen for Code Status: Yes, Screen for Goals of Care: Yes, Screen for Pain: Yes, If Pain Regimen Started, Initiate Bowel Regimen: Yes, Screen for Nausea/Vomitting: Yes Code Status: 07/30/18 20:37 CODE [Resuscitation Status: Active] [RES] Routine Comment: Resuscitation Status: Full Code 08/04/18 15:45 DNR [Resuscitation Status: Active] [RES] Routine Comment: Resuscitation Status: DNR-Comfort Care-Arrest 08/11/18 13:51 DNR [Resuscitation Status: Active] [RES] Routine Comment: Resuscitation Status: DNR-Comfort Care - Labs CBC & Chem 7: 08/11/18 05:46 08/11/18 05:46 Labs: Laboratory Results - last 24 hr 08/11/18 08/11/18 08/11/18 04:48 11:27 11:30 POC Glucose 74 78 Fluid Source RUL BAL Fluid Volume 15 Fluid Appearance Hazy A Fluid RBC TNP Fld Tot Nucleated Cell TNP Fluid Seg Neutrophil % 52.0 Fld Band Neutrophil % Test Not Performed Fluid Lymphocytes % 10.0 Fluid Monocytes % 2.0 Fluid Eosinophils % Test Not Performed Fluid Basophils % Test Not Performed Fluid Other Cells % 36.0 08/11/18 11:30 POC Glucose Fluid Source LAST BAL Fluid Volume 9 Fluid Appearance Hazy A Fluid RBC TNP Fld Tot Nucleated Cell TNP Fluid Seg Neutrophil % 58.0 Fld Band Neutrophil % Test Not Performed Fluid Lymphocytes % 13.0 Fluid Monocytes % 10.0 Fluid Eosinophils % Test Not Performed Fluid Basophils % Test Not Performed Fluid Other Cells % 19.0 - Impressions Impressions Chest X-Ray 08/11/18 11:01 IMPRESSION: 1. Unchanged bibasilar pulmonary opacities with bilateral pleural effusions. Recommend radiographic follow-up to complete resolution. 2. Findings suggestive of underlying pulmonary interstitial edema. 3. No evidence of pneumothorax. D/ / 08/11/2018 11:32:07 Seb Kraus MD / shawanda Interpreting Provider: Seb Kraus MD - ABG Interpretation ABG results: ABG ABG pH 7.41 pH Units (7.32-7.45) 08/11/18 05:40 ABG pCO2 42 mmHg (35-45) 08/11/18 05:40 ABG pO2 55 mmHg (85-104) L 08/11/18 05:40 ABG O2 Saturation 88 % (95-98) L 08/11/18 05:40 PT/INR, D-dimer PT 10.0 Seconds (9.4-12.1) 07/30/18 21:02 Consult Discharge Plan - Plan Referrals: Vladimir Chaidez MD [Primary Care Provider] -
[2018-08-12] MEDS ORDERED: Bisacodyl 10 MG RECTAL SUPPOSITORY RC PRN (11:58)
[2018-08-12] MEDS: FentaNYL (PF) 1,000 MCG in 0.9 % Sodium Chloride 80 ML IVC SCH ×2 (13:08→23:17)
[2018-08-12] MEDS ORDERED: MethylPREDNISolone 40 MG/ML VIAL IVP SCH (16:00)
[2018-08-12] MEDS: Atropine Sulfate 1% 40 DROP/2 ML BOTTLE SL PRN (21:29)
[2018-08-13] MEDS: Artificial Tears SOLN 15 ML BOTTLE BOTH EYES SCH ×3 (00:21→07:28)
[2018-08-13] MEDS: FentaNYL (PF) 1,000 MCG in 0.9 % Sodium Chloride 80 ML IVC SCH (06:11)
[2018-08-13] MEDS: Nystatin SUSP 5 ML UD.LIQ PO SCH (07:28)
[2018-08-13 07:42] VITALS: BP 131/52
--- NOTE | 2018-08-13 09:48 | Discharge Summary ---
Orders not resulted at time of discharge: Pending orders 07/31/18 10:57 AFB Culture, Respiratory [TB] Routine AFB Smear [TB] Routine Fungal Culture [MYC] Routine 07/31/18 11:00 AFB Culture, Respiratory [TB] Routine AFB Smear [TB] Routine Fungal Culture [MYC] Routine 08/11/18 11:24 Cytology [PTH] Routine 08/11/18 11:30 AFB Culture, Respiratory [TB] Routine AFB Culture, Respiratory [TB] Routine AFB Smear [TB] Routine AFB Smear [TB] Routine Culture,Respiratory [RM] Routine Culture,Respiratory [RM] Routine Fungal Culture [MYC] Routine Fungal Culture [MYC] Routine Date of Encounter: 08/13/18 Time of Encounter: 09:45 - Discharge Diagnosis (1) Acute respiratory distress Priority: Primary Status: Acute (2) ESRD on dialysis Priority: Primary Status: Chronic (3) COPD (chronic obstructive pulmonary disease) Priority: Primary Status: Chronic Qualifiers: COPD type: COPD with acute exacerbation Qualified Code(s): J44.1 - Chronic obstructive pulmonary disease with (acute) exacerbation (4) HTN (hypertension) Priority: Secondary Status: Chronic Qualifiers: Hypertension type: essential hypertension Qualified Code(s): I10 - Essential (primary) hypertension (5) Hyperkalemia Priority: Secondary Status: Chronic (6) Volume overload Priority: Primary Status: Acute Qualifiers: Hypervolemia type: unspecified Qualified Code(s): E87.70 - Fluid overload, unspecified (7) Acute and chronic respiratory failure Priority: Primary Status: Acute Qualifiers: Respiratory failure complication: hypoxia Qualified Code(s): J96.21 - Acute and chronic respiratory failure with hypoxia (8) Mucus plugging of bronchi Priority: Primary Status: Chronic (9) HCAP (healthcare-associated pneumonia) Priority: Primary Status: Acute (10) Sepsis Priority: Primary Status: Resolved Qualifiers: Sepsis type: methicillin resistant Staphylococcus aureus Qualified Code(s): A41.02 - Sepsis due to Methicillin resistant Staphylococcus aureus (11) Demand ischemia Priority: Secondary Status: Acute Hospital course: Ms. Carmona is a 77 year old female with PMH of COPD and ESRD on HD MWF who dialyzed on HD MWF came with severe shortness of breath associated with cough. Respiratory distress thought to be due to volume overload in combination with COPD. Patient needed intubation most transferred to ICU after. Patient had lengthy ICU course and was extubated intubated twice. During the stay bronchoscopy was done which showed severe tracheomalacia as well as mucus plugging. Patient also had MRSA bacteremia and HCAP pneumonia for which initially patient was on broad-spectrum antibiotic later changed to vancomycin. Patient was evaluated by infectious disease and cardiology and was followed by nephrology. Patient also had difficulty controlling A. fib and was on Cardizem drip. Cardiology followed for elevated troponin and was planning to do ischemic evaluation after sepsis and respiratory stabilization. Patient was extubated and transferred to floor. Patient had palliative care evaluated given her prognosis however patient wanted to be intubated if needed. On the floor on the day after transfer from ICU patient developed severe respiratory distress overnight and needed intubation and transferred to ICU. Patient was treated for respiratory failure, renal failure, atrial fibrillation, sepsis and pneumonia while in ICU. Had another discussion with family and palliative care and ultimately patient was decided by family to transition to comfort care with DNR CCA. Patient was terminally extubated after and was put on comfort care. Patient received fentanyl and Ativan for comfort while on the floor. Patient was transitioned inpatient hospice be transferred home on Tuesday with hospice/comfort care. - Time Spent with Patient Total time spent providing and/or coordinating discharge services: - Discharge Medications Home Medications: Allopurinol [Zyloprim 100 MG] 100 mg PO DAILY 08/13/18 [History] Artificial Tears SOLN [Akwa Tears] 1 drop BOTH EYES Q4HR bottle 08/13/18 [Rx] B Complex W-C No.20/Folic Acid [Virt-Caps Softgel] 1 cap PO DAILY 08/13/18 [History] Furosemide [Lasix] 20 mg PO HS 08/13/18 [History] Furosemide [Lasix] 40 ng PO QAM 08/13/18 [History] Hydralazine HCl 50 mg PO TID 08/13/18 [History] Ipratropium/Albuterol Sulfate [Iprat-Albut 0.5-3(2.5) mg/3 ml] 08/13/18 [History] Levothyroxine Sodium [Levoxyl] 50 mcg PO DAILY 08/13/18 [History] Losartan Potassium [Cozaar] 50 mg PO BID 08/13/18 [History] Metoprolol Succinate [Toprol Xl] 50 mg PO 08/13/18 [History] Pregabalin [Lyrica] 50 mg PO BID 08/13/18 [History] Scopolamine Patch [Transderm-Scop] 1.5 mg TD Q72H patch.[id number] 08/13/18 [Rx] Sevelamer [Renvela] 4,000 mg PO TID 08/13/18 [History] Tiotropium [place] [Spiriva Respimat] 08/13/18 [History] predniSONE [PredniSONE] 10 mg PO DAILY 08/13/18 [History] Allergies/Adverse Reactions: Allergy/AdvReac Type Severity Reaction Status Date / Time codeine Allergy Rash Verified 07/30/18 14:27 gabapentin Allergy Itching Verified 07/30/18 14:27 Date of admission: 07/30/18 14:32 Primary care physician: Vladimir Chaidez MD Consults: 07/30/18 14:30 Consult to Nephrology [CONS] Stat Consulting Provider: Kidney Makenzie/GWYN/ADAM/YOVANA Reason for Consult: volume overload need HD Time Notified: 14:31 Call Completed: Yes 07/30/18 22:51 Consult to Critical Care [CONS] Routine Consulting Provider: Pulm Crit Care & Sleep Makenzie Reason for Consult: acute respiratory failure Call Completed: Yes 08/02/18 10:38 Consult to Cardiology [CONS] Routine Comment: Consulting Provider: Cardiology Royal Reason for Consult: elevated troponin Call Completed: No 08/04/18 10:56 Consult to Palliative Care [CONS] Stat Comment: Consulting Provider: Palliative Care Royal Reason for Consult: recurrent inturbations secondary to pulmonary dx Call Completed: Yes 08/05/18 07:04 Consult to Critical Care [CONS] Stat Consulting Provider: Pulm Crit Care & Sleep Makenzie Reason for Consult: Delayed entry, straddle carrier operator saw patient already. Call Completed: Yes - Constitutional Vitals: Temp Pulse Resp BP Pulse Ox 102.6 F H 87 16 131/52 83 08/13/18 07:40 08/13/18 07:40 08/13/18 07:40 08/13/18 07:40 08/13/18 07:40 General appearance: Present: A&O X 3 Exam: General: Unreposnsive Respiratory exam: Breathing comfortably with occasional agonal gastp Cardiovascular exam: RRR, No MRG, tachycardic GI/Abdominal exam: soft, no peritoneal signs. Extremities exam: pulse present b/l, Neurological exam: Unresponsive. Not able to follow commands. Skin exam: bluish discoloration. - Patient Status Disposition: Hospice - Medical Facility Condition: Serious - Discharge Instructions Follow Up With: Vladimir Chaidez MD [Primary Care Provider] - ([facility]) Forms: Jury Excuse
[2018-08-14] MEDS ORDERED: Scopolamine Patch 1.5 MG PATCH.TD72 TD SCH (13:00)
== END 2018-08-13 10:25 | disposition hospice, inpatient (51) | DRG 871 ==
LOC: 2NENU 10:21 → EMEROOARM 10:21 → SUATTDRO 14:32 → 2NENU 15:12 → ICNU 20:23 → 2ANU 08-01 23:57 → ICNU 08-04 08:50 → 2ANU 08-09 16:15 → ICNU 08-11 05:17 → 2ANU 08-11 17:29
PROVIDERS: ADMIT Internal Medicine Nephrology; ATTEND Internal Medicine
PROC: ENDOBRF (2018-08-06 12:30)

== ENCOUNTER 2018-08-12 13:04 | Inpatient (IN) ==
[2018-08-12] MEDS ORDERED: Atropine Sulfate 1% 40 DROP/2 ML BOTTLE SL PRN (20:31)
[2018-08-12] MEDS ORDERED: *HR* LORazepam Oral Conc 2 MG/ML PO PRN (20:31)
[2018-08-12] MEDS ORDERED: *HR* OxyCODONE Immed Rel 5 MG TABLET PO PRN (20:31)
[2018-08-12] MEDS ORDERED: Haloperidol Lactate 5 MG/ML VIAL IVP PRN (20:31)
[2018-08-12] MEDS ORDERED: Bisacodyl 10 MG RECTAL SUPPOSITORY RC PRN (20:31)
[2018-08-13] MEDS: FentaNYL (PF) 1,000 MCG in 0.9 % Sodium Chloride 80 ML IVC SCH ×2 (06:11→13:16)
[2018-08-13] MEDS ORDERED: Acetaminophen 650 MG RECTAL SUPP RC PRN (09:22)
[2018-08-13] MEDS ORDERED: *HR* FentaNYL (PF) 100 MCG/2 ML VIAL IVP PRN (10:06)
--- NOTE | 2018-08-13 10:19 | Pallative History & Physical ---
Date of Encounter: 08/13/18 Time of Encounter: 10:08 Assessment and Plan (1) Dyspnea Status: Acute on fentanyl drip, 125mcg/hrs, more tachypneic today. Added fentanyl 25mcg q1hr prn bolus. Qualifiers: Dyspnea type: acute respiratory distress Qualified Code(s): R06.03 - Acute respiratory distress (2) Agitation Status: Acute Haldol prn (3) Fever Status: Acute likely terminal fever Tylenol supp prn Qualifiers: Fever type: unspecified Qualified Code(s): R50.9 - Fever, unspecified (4) Anxiety Status: Acute Ativan prn, received 2 doses in 24hrs (5) Hospice care Status: Acute will remove العلي as pt produce minimal amounts of urine. mouth care and eye care Scopolamine patch and atropine prn for secretions. (6) Acute and chronic respiratory failure with hypoxia Status: Acute s/p palliative extubation, comfort care only. (7) Goals of care, counseling/discussion Status: Acute Patient is actively dying. plan is to return home if she stabilizes, and can be weaned off IV medication. will evaluate daily. Family agreeable. Internal Medicine - H&P: HPI Chief complaint: acute on chronic respiratoey failure Admitted From: Intrahospital Transfer Plans for Post Hospital Care: at Medical Facility History of present illness: Ms. Carmona is a 77 year old female with hospice diagnosis of Respiratory failure and ESRD. Pt has PMH of COPD and ESRD on HD, tracheomalacia with recurrent mucus plugging requiring repeated intubations and bronchoscopy. Patient was admitted on 08/03/18 for SOB, she then decompensated and was intubated for mucus plugging and underwnent bronchoscopy. Palliative care consult was called [facility]. At first family decided to continue on current level of care, with recurrent intubation as needed. Pt was succesfully extubated, but then went into respiratory distress and had to be re-intubated in 2 days. She also decompensated to a point that she was unable to tolerate dialysis. Family then, decided against tracheostome, transitioned her to [facility] and palliative extubation was performed on 08/11. Pt was having symptoms of dyspnea and tachypnea, but was stable, so she was transferred to [facility] for symptom management. Patient today was tachypneic, not arousable. She is on Fentanyl drip, now 125mcg/hr. She is also febrile. will give tylenol supp, and a bolus dose of fentanyl for dyspnea. Will continue to monitor. No family was present at the time. Past Med Surg Social Fam HX - Past Medical History Medical history: atrial fibrillation, COPD, DVT, dialysis, hyperlipidemia, hypertension, osteoporosis, renal disease, other Additional medical history: broken right foot (2001), left arm fistula Psychiatric history: no psych history - Past Surgical History Surgical History: other Additional surgical history: back surgery L4-L5, , left nephrectomy for donation, cataract removal, CTR-left, A-V fistula placed in left arm. - Social History Smoking Status: Never smoker Smokeless Tobacco Status: No Alcohol use: none Drug use: none - Family History Mother Adopted: No Family Member Ethnicity: Non- Living Status: Hx Family Cardiac Disorders: No Hx Family Respiratory Disorders: No Hx Family Cancer: Yes Hx Family GI Disorders: No Hx Family Endocrine Disorder: No Hx Family Neuromuscular Disorders: No Hx Family Neurologic Disorders: No Hx Family HEENT Disorders: No Hx Family Autoimmune Disorders: No Internal Medicine - H&P: Meds Ipratropium/Albuterol Sulfate [Iprat-Albut 0.5-3(2.5) mg/3 ml] 08/13/18 [History] Levothyroxine Sodium [Levoxyl] 50 mcg PO DAILY 08/13/18 [History] Losartan Potassium [Cozaar] 50 mg PO BID 08/13/18 [History] Metoprolol Succinate [Toprol Xl] 50 mg PO 08/13/18 [History] Pregabalin [Lyrica] 50 mg PO BID 08/13/18 [History] RX: Allopurinol [Zyloprim 100 MG] 100 mg PO DAILY 08/13/18 [History] RX: Artificial Tears SOLN [Akwa Tears] 1 drop BOTH EYES Q4HR bottle 08/13/18 [Rx] RX: B Complex W-C No.20/Folic Acid [Virt-Caps Softgel] 1 cap PO DAILY 08/13/18 [History] RX: Furosemide [Lasix] 20 mg PO HS 08/13/18 [History] RX: Furosemide [Lasix] 40 ng PO QAM 08/13/18 [History] RX: Hydralazine HCl 50 mg PO TID 08/13/18 [History] RX: Scopolamine Patch [Transderm-Scop] 1.5 mg TD Q72H patch.[id number] 08/13/18 [Rx] Sevelamer [Renvela] 4,000 mg PO TID 08/13/18 [History] Tiotropium [place] [Spiriva Respimat] 08/13/18 [History] predniSONE [PredniSONE] 10 mg PO DAILY 08/13/18 [History] Allergy/AdvReac Type Severity Reaction Status Date / Time codeine Allergy Rash Verified 07/30/18 14:27 gabapentin Allergy Itching Verified 07/30/18 14:27 ROS unobtainable: due to mental status Palliative Care-Exam - Constitutional Exam: - Respiratory Respiratory exam: Present: decreased breath sounds, labored breathing, with the use of accessory muscles, tachypnea. - GI/Abdominal GI/Abdominal exam: Present: diminished bowel sounds, soft. Absent: tenderness - Additional comments: العلي in place, draining scan amounts of dark urine - Extremities Exam Extremities exam: Present: normal capillary refill Additional comments: peripheral pulses present - Neurological Exam Additional comments: not responsive to touch or voice. Pupils reactive - Skin Additional comments: Scattered areas of ecchymosis without acute rash or evidence of ecchymotic change/purpura Palliative Quality Palliative Quality: Screen for Code Status: Yes, Screen for Goals of Care: Yes, Screen for Pain: Yes, If Pain Regimen Started, Initiate Bowel Regimen: Yes, Screen for Nausea/Vomitting: NA Code Status: 08/13/18 10:03 CODE [Resuscitation Status: Active] [RES] Routine Comment: Resuscitation Status: DNR-Comfort Care
[2018-08-13] MEDS ORDERED: *HR* FentaNYL (PF) 100 MCG/2 ML VIAL ONE (10:53)
[2018-08-13] MEDS ORDERED: Haloperidol Lactate 5 MG/ML VIAL ONE (11:18)
[2018-08-14] MEDS ORDERED: Scopolamine Patch 1.5 MG PATCH.TD72 TD SCH (14:00)
--- NOTE | 2018-08-15 09:16 | Death Note ---
Discharge Sum: Summary - Date and Time Date of admission: 08/13/18 10:41 Date of : 08/13/18 Time of : 14:47 - Summary Details: Ms. Carmona is a 77 year old female with hospice diagnosis of Respiratory failure and ESRD. Pt has PMH of COPD and ESRD on HD, tracheomalacia with recurrent mucus plugging requiring repeated intubations and bronchoscopy. Patient was admitted on 08/03/18 for SOB, she then decompensated and was intubated for mucus plugging and underwent bronchoscopy. Palliative care consult was called [facility]. At first family decided to continue on current level of care, with recurrent intubation as needed. Pt was successfully extubated, but then went into respiratory distress and had to be re-intubated in 2 days. She also decompensated to a point that she was unable to tolerate dialysis. Family then, decided against tracheotomy, transitioned her to [facility] and palliative extubation was performed on 08/11. Pt was having symptoms of dyspnea and tachypnea, but was stable, so she was transferred to [facility] for symptom management. patient was kept comfortable and peacefully. - Additional Data Confirmation of as documented by pronouncing clinician: no pulse, no respirations, no heart sounds, pupils fixed and dilated Family: at bedside Attending/PCP notified?: Yes Attending physician: Cynthia Cloud MD Was code activated?: No Autopsy requested?: No appeals examiner notified?: No Organ bank notified?: Yes Advance directives: Yes Hospice patient?: Yes Discharge Sum: Diag - PCOD Probable Cause of : Respiratory arrest Discharge Sum: Prov - Provider Admitting clinician: Cynthia Cloud Attending physician on admission: Cynthia Cloud Consults: 08/12/18 20:31 Consult to Palliative Care [CONS] Routine Comment: Consulting Provider: Palliative Care Makenzie Reason for Consult: hospice admission Call Completed: Yes
== END 2018-08-13 17:15 | disposition expired | DRG 951 ==
LOC: 2ANU 08-13 10:41
PROVIDERS: ADMIT Internal Medicine Hospice and Palliative Medicine; ATTEND Internal Medicine Hospice and Palliative Medicine